=== PATIENT | male | born 1940 | race Caucasian/White ===

== ENCOUNTER 2016-07-27 14:37 | Inpatient (IN) | payer MEDICARE, OTHER ==
[2016-07-27] VITALS (9 sets, daily range): BP systolic 86–111; BP diastolic 52–71; PULSE 64–87; RESP 14–16; TEMP 96.4
[~2016-07-27] VITALS: Ht 157.5 cm; Wt 80.2 kg
[~2016-07-27 14:37] MED LIST: ALBU8.5H3 INH; ASPI81TA3 PO; ATOR20TA38 PO; COU5 PO; DIGO125T PO; DOCU-144 PO; FURO-109 PO; IPRA4AER IH; LEVO500T72 PO; METO25TA7 PO; MTF1000T PO; NATE120T12 PO; PANT40TA4 PO; TAMS-14 PO; TIOT18CA IH; UDROBAC PO
[2016-07-27] MEDS ORDERED: ASPIRIN 300 MG SUPP PR STA (14:45)
[2016-07-27] MEDS ORDERED: PROPOFOL 100 ML ONE (14:50)
[2016-07-27] MEDS ORDERED: FURO40SO PO (15:00)
[2016-07-27] MEDS ORDERED: METO25TA4 PO (15:01)
[2016-07-27 15:02] LABS: BASOPHIL # 0.1 10^3/ul (0.0-0.1); BASOPHILS % 0.5 % (0.0-2.0); EOSINOPHILS # 0.4 10^3/ul (0.0-0.5); EOSINOPHILS % 3.9 % (0.0-7.0); HEMATOCRIT 36.9 % (42.0-52.0); HEMOGLOBIN 12.3 g/dl (14.0-18.0); LYMPHOCYTES # 2.7 10^3/ul (0.8-2.9); LYMPHOCYTES % 23.6 % (15.0-51.0); MEAN CORPUSCULAR HEMOGLOBIN 31.3 pg (29.0-33.0); MEAN CORPUSCULAR HGB CONC 33.3 g/dl (32.0-37.0); MEAN CORPUSCULAR VOLUME 93.9 fl (82.0-101.0); MONOCYTE # 0.7 10^3/ul (0.3-0.9); MONOCYTES % 5.9 % (0.0-11.0); NEUTROPHIL # 7.5 10^3/ul (1.6-7.5); NEUTROPHILS % 66.1 % (39.0-77.0); PLATELET COUNT 188 10^3/UL (140-440); RED BLOOD COUNT 3.93 10^6/ul (4.70-6.10); RED CELL DISTRIBUTION WIDTH 15.7 % (11.5-14.5); UNCORRECTED WBC 11.3 10^3/ul (4.8-10.8); WHITE BLOOD COUNT 11.3 10^3/ul (4.8-10.8)
[2016-07-27] MEDS ORDERED: GABA100C14 PO (15:03)
[2016-07-27] MEDS ORDERED: WARF10TA PO (15:03)
[2016-07-27] MEDS ORDERED: SERT100T PO (15:03)
[2016-07-27] MEDS ORDERED: WARF7.5T PO (15:03)
[2016-07-27] MEDS ORDERED: POTA20TA96 PO (15:04)
[2016-07-27] MEDS ORDERED: [UNRECOGNIZED DRUG - CODE] PO (15:04)
[2016-07-27 15:08] LABS: CONDITION 1; INR 2.15; LH ANALYZER COMMENTS 1; PROTIME 24.2 Sec (12.2-14.2); PT RATIO 1.9
[2016-07-27 15:09] LABS: PARTIAL THROMBOPLASTIN TIME 36.1 Sec (25.0-35.0)
--- NOTE | 2016-07-27 15:15 | ERA ---
ER Documentation Chief Complaint Date/Time DATE: 07/27/16 TIME: 15:08 Chief Complaint cardiac arrest HPI 75-year-old male brought in by ambulance after a respiratory arrest at home. Per them, he was on a breathing treatment when they arise. Per family he has had respiratory distress and flulike symptoms for several days. They called ambulance for respiratory distress, however by the time EMS arrived, he was in PEA arrest. 6 minutes of CPR was done and the patient was intubated in the field and one dose of epi was given via ET tube. There was return of spontaneous circulation. Medical history is unknown. ROS Review of systems unavailable as the patient is unresponsive Medications Home Meds Active Scripts Digoxin* (Digoxin*) 0.125 Mg Tab, 0.125 MG PO DAILY@13, #30 TAB Prov:[employer] 03/08/14 Docusate Sodium* (Colace*) 100 Mg Cap, 100 MG PO DAILY, #30 Prov:[employer]JAY [employer] 03/08/14 Reported Medications Potassium Chloride* (Potassium Chloride*) 20 Meq Tablet.er, 20 MEQ PO BID, TAB.SA 07/27/16 Multivitamin (One Daily) 1 Each Tablet, 1 EACH PO DAILY, TAB 07/27/16 Gabapentin* (Gabapentin*) 100 Mg Capsule, 200 MG PO TID, #180 CAP 07/27/16 Sertraline Hcl* (Zoloft*) 100 Mg Tablet, 100 MG PO DAILY, #30 TAB 07/27/16 Warfarin Sodium* (Coumadin*) 10 Mg Tablet, 10 MG PO THREE DAYS A WEEK, TAB 07/27/16 Warfarin Sodium* (Coumadin*) 7.5 Mg Tablet, 7.5 MG PO FOUR DAYS A WEEK, TAB 07/27/16 Metoprolol Tartrate* (Lopressor*) 25 Mg Tablet, 25 MG PO BID, #60 TAB 07/27/16 Furosemide* (Furosemide*) 40 Mg/5 Ml Solution, 40 MG PO BID, #300 ML 07/27/16 Albuterol Sulfate* (Proair HFA*) 8.5 Gm Hfa.aer.ad, 2 PUFF INH Q4, INH 03/05/14 Pantoprazole (Protonix) 40 Mg Tabec, 40 MG PO DAILY, TAB 03/05/14 Albuterol/Ipratropium* (Combivent Respimat*) 20-100 Mcg/Inh - 4 Gm Aer.w.adap, 1 PUFF IH QID Y for WHEEZING AND SOB, INH 03/05/14 Atorvastatin Calcium* (Atorvastatin Calcium*) 20 Mg Tablet, 20 MG PO HS, TAB 03/05/14 Aspirin (Aspirin) 81 Mg Chew, 81 MG PO DAILY, TAB.CHEW 03/05/14 Discontinued Reported Medications Metoprolol Succinate* (Toprol XL*) 25 Mg Tab.sr.24h, 25 MG PO DAILY, TAB 03/05/14 Warfarin Sod (Coumadin) 5 Mg Tablet, 5 MG PO DAILY, TAB 03/05/14 Tiotropium [place]* (Spiriva*) 18 Mcg Cap.w.dev, 1 INH IH DAILY, EA 03/05/14 Guaifenesin-Codeine Phosphate* (Robitussin* AC) 5 Ml Syrup, 5 ML PO Q4H Y for COUGH, ML 03/05/14 Metformin* (Glucophage*) 1,000 Mg Tablet, 1000 MG PO BID WITH MEALS, TAB 03/05/14 Tamsulosin Hcl* (Flomax*) 0.4 Mg Cap.er.24h, 0.4 MG PO DAILY, CAP 03/05/14 Discontinued Scripts Nateglinide* (Starlix*) 120 Mg Tablet, 120 MG PO AC MEALS, #90 TAB Prov:[employer] 03/08/14 Levofloxacin* (Levaquin*) 500 Mg Tablet, 500 MG PO DAILY, #5 TAB Prov:S[employer]JAY [employer] 03/08/14 Guaifenesin-Codeine Phosphate* (Robitussin* AC) 5 Ml Syrup, 5 ML PO Q4H Y for COUGH, #1 BOT Prov:[employer] 03/08/14 Furosemide* (Lasix*) 40 Mg Tab, 40 MG PO DAILY, #30 Prov:[employer]JAY [employer] 03/08/14 Allergies Allergies: Coded Allergies: Unknown: Unable to obtain (Unverified , 03/05/14) PMhx/Soc Medical and Surgical Hx: Unable to obtain History of Surgery: Yes (S/P Mitral valve replacement on December 2013) Anesthesia Reaction: No Hx 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 Disorder: No Hx Respiratory Disorders: Yes (Pneumonia) Hx Cardiac Disorders: Yes (Afib,CHF,s/p Mitral Valve replacement) Hx Psychiatric Problems: Yes Hx Miscellaneous Medical Probl: Yes (Hyperlipidimia) Hx Alcohol Use: No Hx Substance Use: No Hx Tobacco Use: Yes FmHx Unable to obtain Physical Exam Vitals Vital Signs Date Time Temp Pulse Resp B/P Pulse Ox O2 Delivery O2 Flow Rate FiO2 07/27/16 18:00 75 14 104/62 100 Mechanical Ventilator 07/27/16 17:51 84 14 100 100 07/27/16 17:30 72 14 105/65 100 Mechanical Ventilator 07/27/16 17:00 72 14 110/65 100 Mechanical Ventilator 07/27/16 16:00 86 14 77/62 100 Mechanical Ventilator 07/27/16 15:00 130 19 101/86 100 Mechanical Ventilator 07/27/16 14:46 131 26 155/87 100 Physical Exam Const: Intubated, unresponsive, diaphoretic Head: Atraumatic Eyes: Normal Conjunctiva, pupils equal and reactive to light ENT: Normal External Ears, Nose and Mouth. Neck: No JVD Resp: Prolonged expirations, diminished breath sounds bilaterally, left worse than right, no rales or rhonchi Cardio: Sternotomy scar, well-healed tachycardic with irregular rhythm, no murmurs Abd: Soft, non tender, non distended. Well-healed right upper quadrant surgical scar. normal bowel sounds Skin: No petechiae or rashes Back: No bruising or evidence of trauma Ext: No cyanosis, or edema Neur: Unresponsive Result Diagram: 07/27/16 1440 07/27/16 1440 Results 24 hrs Laboratory Tests Test 07/27/16 14:40 07/27/16 14:45 07/27/16 15:23 Activated Partial Thromboplast Time 36.1Sec Alanine Aminotransferase (ALT/SGPT) 48IU/L Albumin 4.1g/dl Albumin/Globulin Ratio 1.24 Alkaline Phosphatase 115IU/L Anion Gap 29 Aspartate Amino Transf (AST/SGOT) 78IU/L Basophils # 0.110^3/ul Basophils % 0.5% Blood Morphology Comment Blood Urea Nitrogen 18mg/dl Calcium Level 9.8mg/dl Carbon Dioxide Level 24mmol/L Chloride Level 95mmol/L Creatinine 1.34mg/dl Direct Bilirubin 0.00mg/dl Eosinophils # 0.410^3/ul Eosinophils % 3.9% Globulin 3.30g/dl Glucose Level 447mg/dl Hematocrit 36.9% Hemoglobin 12.3g/dl INR International Normalized Ratio 2.15 Indirect Bilirubin 0.3mg/dl Lactic Acid Level 10.9mmol/L Lymphocytes # 2.710^3/ul Lymphocytes % 23.6% Mean Corpuscular Hemoglobin 31.3pg Mean Corpuscular Hemoglobin Concent 33.3g/dl Mean Corpuscular Volume 93.9fl Mean Platelet Volume 9.0fl Monocytes # 0.710^3/ul Monocytes % 5.9% Neutrophils # 7.510^3/ul Neutrophils % 66.1% Nucleated Red Blood Cells # 0.010^3/ul Nucleated Red Blood Cells % 0.0/100WBC Platelet Count 13900^3/UL Potassium Level 4.5mmol/L Prothrombin Time 24.2Sec Prothrombin Time Ratio 1.9 Red Blood Count 3.9310^6/ul Red Cell Distribution Width 15.7% Sodium Level 143mmol/L Total Bilirubin 0.3mg/dl Total Protein 7.4g/dl Troponin I 0.032ng/ml White Blood Count 11.310^3/ul Arterial Blood HCO3 24.0mmol/L Arterial Blood Base Excess -2.1mmol/L Arterial Blood Oxygen Saturation 99.1mmHG Vicente Test ACCEPTAB Arterial Blood Gas Puncture Site Right Radial Arterial Blood Carboxyhemoglobin 0.3% Arterial Blood Date Drawn 07/27/2016 4:20:50 PM Arterial Blood Methemoglobin 0.2% Arterial Blood pCO2 (Temp correct) 47.5mmhg Arterial Blood pH (Temp corrected) 7.322 Arterial Blood pO2 (Temp corrected) 496.2mmHG Blood Gas A-a O2 Differential 169.3mmHg Blood Gas Actual Respiration Rate 14 Blood Gas Low PEEP Setting 5.0cmH2O Blood Gas Modality VENT - AC Blood Gas Notified Time 07/27/2016 4:29:38 PM Blood Gas Notified Whom M.D. Blood Gas Respiration Rate 14.0 Blood Gas Specimen Source Blood arterial Blood Gas Temperature 37.0C Blood Gas Tidal Volume 550.0mL FiO2 100.0% Oxyhemoglobin Percent 98.6% Total Hemoglobin 10.1g/dl Urine Bilirubin NEGATIVE Urine Clarity CLEAR Urine Color LT. YELLOW Urine Glucose 0.5%% Urine Granular Casts FEW Urine Hemoglobin 1+ Urine Ketones NEGATIVE Urine Leukocyte Esterase NEGATIVE Urine Microscopic RBC 5-10/HPF Urine Microscopic WBC 0-2/HPF Urine Nitrite NEGATIVE Urine Specific [place] 1.020 Urine Total Protein 4+ Urine Urobilinogen 1.0 E.U./dL Urine pH 7.0 Current Medications Medications (Trade) Dose Ordered Sig/Jhoana Route PRN Reason Start Time Stop Time Status Last Admin Dose Admin Aspirin 300 mg 300 mg ONCE STAT [place] 07/27/16 14:45 07/27/16 14:48 DC 07/27/16 15:07 Propofol (Diprivan) 100 ml @ ud STK-MED ONCE .ROUTE 07/27/16 14:50 07/27/16 14:51 DC Midazolam HCl 2 mg 2 mg ONCE ONCE IV 07/27/16 15:30 07/27/16 15:31 DC 07/27/16 15:34 Midazolam HCl 50 ml @ 1 mls/hr TITRATE IV 07/27/16 15:30 07/27/16 15:35 Fentanyl (Sublimaze) 100 ml @ 2.5 mls/hr TITRATE IV 07/27/16 16:00 07/27/16 16:37 Sodium Chloride (NS) 2,680 ml BOLUS OVER 2 HOURS STAT IV* 07/27/16 15:41 07/27/16 15:42 DC 07/27/16 15:41 Albuterol (Proventil 0.5% (Neb)) 10 mg ONCE STAT INH 07/27/16 16:20 07/27/16 16:21 DC 07/27/16 16:52 Methylprednisolone Sodium Succinate (Solu-Medrol) 125 mg ONCE ONCE IV 07/27/16 16:30 07/27/16 16:31 DC Azithromycin 500 mg 500 mg ONCE STAT PO 07/27/16 16:21 07/27/16 18:19 DC Ceftriaxone Sodium 50 ml @ 100 mls/hr ONCE STAT IVPB 07/27/16 16:21 07/27/16 16:50 DC Piperacillin Sod/ Tazobactam Sod (Zosyn 3.375gm/ 100 ml (Pmx)) 100 ml @ 200 mls/hr ONCE ONCE IVPB 07/27/16 17:30 07/27/16 17:59 UNV Albuterol/ Ipratropium 3 ml 3 ml Q6 HHN 07/27/16 18:00 UNV Propofol (Diprivan) 100 ml @ 2.591 mls/ hr PER PROTOCOL IV 07/27/16 17:30 UNV Lorazepam (Ativan) 2 mg Q2H PRN IV RASS GOAL -2 TO -3 07/27/16 17:30 UNV Morphine Sulfate 2 mg 2 mg Q2 PRN IV PAIN LEVEL 4-7 07/27/16 17:30 UNV Sodium Chloride (1/2 NS) 1,000 ml @ 100 mls/hr Q10H IV 07/27/16 17:13 UNV Ondansetron HCl (Zofran Inj) 4 mg Q6H PRN IV NAUSEA AND/OR VOMITING 07/27/16 17:30 UNV Albuterol (Proventil 0.5% (Neb)) 2.5 mg Q2H RESP THERAPY PRN NEB SHORTNESS OF BREATH 07/27/16 17:30 UNV Ipratropium [place] (Atrovent 0.02% (Neb)) 0.5 mg Q2H RESP THERAPY PRN NEB SHORTNESS OF BREATH 07/27/16 17:30 UNV Nitroglycerin (Nitroglycerin (Sl Tab) 0.4 Mg) 1 tab Q5M PRN SL CHEST PAIN 07/27/16 17:30 UNV Acetaminophen (Tylenol Liquid) 650 mg Q6H PRN PO PAIN LEVEL 1-3 OR FEVER 07/27/16 17:30 UNV Acetaminophen (Tylenol Tab) 650 mg Q6H PRN PO PAIN LEVEL 1-3 OR FEVER 07/27/16 17:30 UNV Lorazepam (Ativan) 1 mg Q2H PRN IV ANXIETY 07/27/16 17:30 UNV Docusate Sodium (Colace) 100 mg Q12H PRN PO CONSTIPATION 07/27/16 17:30 UNV Bisacodyl (Dulcolax Supp) 10 mg DAILY PRN [place] CONSTIPATION 07/27/16 17:30 UNV Pantoprazole 40 mg 40 mg DAILY@06 IV 07/28/16 06:00 UNV Sodium Chloride 1,000 ml @ 1,000 mls/hr Q1H IV 07/27/16 17:13 07/27/16 19:12 UNV Dobutamine HCl/ Dextrose 250 ml @ 12.954 mls/ hr TITRATE IV 07/27/16 17:30 UNV Cefepime HCl (Maxipime 2gm/50 ml (Pmx)) 50 ml @ 100 mls/hr Q8 IVPB 07/27/16 22:00 UNV Vancomycin HCl (Vanco Iv Per Pharmacy) 1 ea Per Rx Protocol XX 07/27/16 17:30 UNV Insulin Aspart (Novolog Insulin Pen) NOVOLOG *MILD* ALGORI... Q4 SC 07/27/16 21:00 UNV Miscellaneous Information (* Miscellaneous Pharmacy Order) HYPOGLYCEMIA PROTOCOL w... ONCE ONCE XX 07/27/16 17:30 07/27/16 17:35 DC Miscellaneous Information (* Miscellaneous Pharmacy Order) Discontinue Glyburide, Glipizide,... ONCE ONCE XX 07/27/16 17:30 07/27/16 17:31 UNV Miscellaneous Information (* Miscellaneous Pharmacy Order) Discontinue all previ... ONCE ONCE XX 07/27/16 17:30 07/27/16 17:31 UNV Aspirin (Aspirin) 81 mg DAILY PO 07/28/16 09:00 UNV Atorvastatin Calcium (Lipitor) 20 mg HS PO 07/27/16 21:00 UNV Digoxin (Digoxin) 0.125 mg DAILY@13 PO 07/28/16 13:00 UNV Sertraline HCl (Zoloft) 100 mg DAILY PO 07/28/16 09:00 UNV Miscellaneous Information (* Miscellaneous Pharmacy Order) DC previous hepa... ONCE ONCE XX 07/27/16 17:30 07/27/16 17:31 UNV Heparin Sodium (Porcine) (Heparin (1000 Units/ml)) 4,000 unit ONCE ONCE IV 07/27/16 17:30 07/27/16 17:31 UNV Heparin Sodium (Porcine) 4000 unit 4,000 unit PER PROTOCOL PRN IV aPTT<47 07/27/16 17:30 UNV Heparin Sodium (Porcine) (Heparin 11709 Units/250 ml) 250 ml @ 0 mls/hr PER PROTOCOL IV 07/27/16 17:30 UNV Miscellaneous Information 1 ea NOTE XX 07/27/16 18:00 Glucose (Glutose) 15 gm Q15M PRN PO DECREASED GLUCOSE 07/27/16 18:00 Glucose (Glutose) 22.5 gm Q15M PRN PO DECREASED GLUCOSE 07/27/16 18:00 Dextrose (D50w Syringe) 25 ml Q15M PRN IV DECREASED GLUCOSE 07/27/16 18:00 Dextrose (D50w Syringe) 50 ml Q15M PRN IV DECREASED GLUCOSE 07/27/16 18:00 Glucagon (Glucagen) 1 mg Q15M PRN IM DECREASED GLUCOSE 07/27/16 18:00 Glucose (Glutose) 15 gm Q15M PRN BUCCAL DECREASED GLUCOSE 07/27/16 18:00 Metoprolol Tartrate (Lopressor) 25 mg BID PO 07/27/16 21:00 UNV Miscellaneous Information 1 puff QID PRN IH WHEEZING AND SOB 07/27/16 18:00 UNV Miscellaneous Information 1 each DAILY PO 07/28/16 09:00 UNV Procedures/MDM EKG: Rate/Rhythm: Atrial fibrillation at 127 bpm QRS, ST, T-waves: ST depressions in II, III, aVF and V2-V5 Impression: Possible ischemia, no arrhythmia, no STEMI The patient is presenting after cardiac arrest with return of spontaneous circulation. His presenting vital signs were notable for tachycardia and hypertension. He was intubated in the field. His ET tube was retracted as it was too deep. I suspect the patient's arrest was likely respiratory secondary to bronchospasm. Albuterol was started. His EKG showed evidence of diffuse ischemia, with no evidence of acute AR, likely secondary to cardiac hypoperfusion during the arrest. His labs were notable for hyperglycemia without evidence of keto acidosis. He also has lactic acidosis, likely secondary to tissue hypoperfusion during his arrest. I have a lower suspicion for septic shock or pulmonary embolism. He was evaluated by the chemistry account manager on-call, Dr. Piedra, who has a suspicion for possible aspiration pneumonia. The patient was started on IV antibiotics, cultures were drawn, and 30 cc/kg IV fluids were started. The patient was started on propofol for sedation with subsequent hypotension. The propofol was stopped and he was started on Versed and fentanyl with improvement of his blood pressure. The patient did wake up and started moving all of his extremities. He is at risk however for anoxic brain injury. CT scan of the head was normal. There is no evidence currently of acute CHF or pneumonia on his chest x-ray. The patient will be admitted to the ICU for further workup and management. Further workup will be deferred to the inpatient team Critical Care Time: 35 minutes Treatments/Evaluations: Close monitoring and treatment of unstable vital signs, cardiorespiratory, and neurologic status, while maintaining tight balance of fluid, respiratory, and cardiac interventions. This time includes discussing the case with the patient and the patients family. This time does not include all procedures stated elsewhere in this record. This time also includes reviewing old records, labs and radiological studies. This time includes examining and re-examining the patient. Additionally, this time also includes arranging care with admitting and consulting physicians. Accepting Care Team: Current data and ongoing care discussed. Time: Time of admission Primary Provider: Donny Consulting: Dorothea Outstanding Data: cultures Departure Diagnosis: Primary Impression: Cardiopulmonary arrest with successful resuscitation Additional Impressions: Atrial fibrillation with RVR Lactic acidosis Acute respiratory failure Qualified Code: J96.00 - Acute respiratory failure, unspecified whether with hypoxia or hypercapnia Hyperglycemia Condition: Critical KENNETH RAVI MD Jul 27, 2016 15:15
[2016-07-27 15:19] LABS: ALBUMIN 4.1 g/dl (3.3-4.9)
[2016-07-27 15:20] LABS: POTASSIUM 4.5 mmol/L (3.5-5.1)
[2016-07-27 15:22] LABS: ALBUMIN/GLOBULIN RATIO 1.24; BILIRUBIN,INDIRECT 0.3 mg/dl (0-1.1); BILIRUBIN,TOTAL 0.3 mg/dl (0.2-1.3); CREATININE 1.34 mg/dl (0.61-1.24); TOTAL PROTEIN 7.4 g/dl (6.1-8.1)
[2016-07-27 15:23] LABS: CALCIUM 9.8 mg/dl (8.4-10.2)
[2016-07-27] MEDS ORDERED: MIDAZOLAM 1 MG/ML 2 ML INJ IV ONE (15:30)
[2016-07-27 15:34] LABS: TROPONIN-I 0.032 ng/ml (0.00-0.12)
[2016-07-27] MEDS: MIDAZOLAM (DRIP) 50 mg/50 mL 50 ML IV SCH ×2 (15:35→23:52)
[2016-07-27 15:39] LABS: ADD UMIC YES; URINE BILIRUBIN (Dip) NEGATIVE (NEGATIVE); URINE BLOOD (Dip) 1+ (NEGATIVE); URINE COLOR LT. YELLOW (YELLOW); URINE KETONES (Dip) NEGATIVE (NEGATIVE); URINE LEUKOCYTE ESTERASE (Dip) NEGATIVE (NEGATIVE); URINE NITRITE (Dip) NEGATIVE (NEGATIVE); URINE TOTAL PROTEIN (Dip) 4+ (NEGATIVE); URINE UROBILINOGEN (Dip) 1.0 E.U./dL (0.1-1.0)
[2016-07-27] MEDS ORDERED: SODIUM CHLORIDE 0.9% 1L BAG IV* STA (15:41)
--- NOTE | 2016-07-27 15:48 | RADRPT ---
PROCEDURE: XR Chest. CLINICAL INDICATION: Post intubation, arrest. TECHNIQUE: Single frontal chest x-ray. COMPARISON: Chest radiograph 03/04/2014. FINDINGS: Endotracheal tube tip terminates 2 cm above the iván. The cardiac silhouette remains enlarged. Aortic atherosclerotic vascular calcifications are identif ied. Mild bibasilar atelectasis is noted. No pneumothorax, pleural effusion or consolidation is seen. There are post cardiac surgery changes with sternotomy wires, mitral valve prosthesis and mediastina l clips. IMPRESSION: 1. Endotracheal tube tip terminates 2 cm above the iván. 2. Persistent cardiomegaly and aortic atherosclerosis. 3. Mild bibasilar atelectasis. 4. Prior median sternotomy and mitral valve replacement. RPTAT: QQ .Cheko Burgos MD, Date Time Electronically viewed and signed by .Cheko Burgos MD, on 07/27/2016 15:48 .N/
--- NOTE | 2016-07-27 15:51 | RADRPT ---
PROCEDURE: XR Chest. CLINICAL INDICATION: Endotracheal tube adjustment. TECHNIQUE: Single frontal chest x-ray. COMPARISON: Chest radiograph 07/27/2016 at 02:51 p.m.. FINDINGS: Interval repositioning of the endotracheal tube with the tip terminates 3 cm above the iván. The cardiac silhouette remains enlarged. Aortic atherosclerotic vascular calcifications are identified. Mild bibasilar atelectasis is noted. No pneumothorax, pleural effusion or consolidation is seen. There are post cardiac surgery changes with sternotomy wires, mitral valve prosthesis and mediastina l clips. IMPRESSION: 1. Interval repositioning of the endotracheal tube with the tip terminates 3 cm above the iván. 2. Persistent cardiomegaly and aortic atherosclerosis. 3. Mild bibasilar atelectasis. 4. Prior median sternotomy and mitral valve replacement. RPTAT: QQ .Cheko Burgos MD, Date Time Electronically viewed and signed by .Cheko Burgos MD, on 07/27/2016 15:51 .N/
[2016-07-27] MEDS ORDERED: FENTAnyl (DRIP) 1000 mcg/100mL 100 ML IV SCH (16:00)
[2016-07-27] MEDS ORDERED: ALBUTEROL 0.5% (NEB) 2.5 MG/0.5 ML AMP INH STA (16:20)
[2016-07-27] MEDS ORDERED: CEFTRIAXONE 1 GM/50 ML (PMX) 50 ML IVPB STA (16:21)
[2016-07-27] MEDS ORDERED: AZITHROMYCIN 250 MG TAB PO STA (16:21)
[2016-07-27 16:29] LABS: AADO2 Arterial 169.3 mmHg (7.0-24.0); Allen Test ACCEPTAB; Arterial Base Excess -2.1 mmol/L (-3.0-3); Arterial COHb 0.3 % (0.0-3.0); Arterial Fraction of Oxyhgb 98.6 % (93.0-99.0); Arterial MetHb 0.2 % (0.0-1.5); Arterial Total Hemglobin 10.1 g/dl (12.0-18.0); MODE VENT - AC
[2016-07-27] MEDS ORDERED: METHYLPREDNISOLONE 125 MG INJ IV ONE (16:30)
--- NOTE | 2016-07-27 16:38 | RADRPT ---
PROCEDURE: CT Head without contrast. CLINICAL INDICATION: Sepsis TECHNIQUE: The study was performed utilizing a GE 64-slice multidetector CT scanner. Direct spiral axial CT images of the brain were obtained from the vertex to the skull base without contrast. The CTDI vol is 45.01 mGy and the DLP is 720.23 mGy-cm. The images were reviewed on a PACS workstation. COMPARISON: No prior studies are available for comparison. FINDINGS: Mild to moderate diffuse atrophy is seen with a compensatory ventricular enlargement. Mild white ma tter disease in the periventricular and deep white matter is seen. The fried-white matter differenti ation is maintained. No intra or extra-axial fluid collection or mass effect or shift in the midlin e structures is seen. The visualized paranasal sinuses, mastoid air cells, orbits, and calvarium ar e unremarkable. Vascular calcifications are seen. IMPRESSION: 1. No acute intracranial pathology. 2. Mild to moderate diffuse volume loss and mild chronic microvascular ischemic changes. RPTAT: HPNM Physician Vanita Date Time Electronically viewed and signed by Physician Vanita on 07/27/2016 16:37 /
[2016-07-27] MEDS ORDERED: LORAZEPAM 2 MG INJ IV PRN ×2 (17:30)
[2016-07-27] MEDS ORDERED: HYPOGLYCEMIA PROTOCOL when Glucose is <70 mg/dL or symptomatic <90 mg/dL. XX ONE (17:30)
[2016-07-27] MEDS ORDERED: ACETAMINOPHEN 650MG/20.3ML CUP PO PRN (17:30)
[2016-07-27] MEDS ORDERED: ALBUTEROL 0.5% (NEB) 2.5 MG/0.5 ML AMP NEB PRN (17:30)
[2016-07-27] MEDS ORDERED: morphine 2 MG INJ IV PRN (17:30)
[2016-07-27] MEDS ORDERED: BISACODYL 10 MG SUPP PR PRN (17:30)
[2016-07-27] MEDS ORDERED: DOCUSATE SODIUM 100 MG CAP PO PRN (17:30)
[2016-07-27] MEDS ORDERED: VANCOMYCIN IV PER PHARMACY XX SCH (17:30)
[2016-07-27] MEDS ORDERED: NITROGLYCERIN (SL) 0.4 MG TAB SL PRN (17:30)
[2016-07-27] MEDS ORDERED: IPRATROPIUM (NEB) 0.5 MG/2.5 ML AMP NEB PRN (17:30)
[2016-07-27] MEDS ORDERED: ONDANSETRON 4 MG INJ IV PRN (17:30)
[2016-07-27] MEDS ORDERED: ACETAMINOPHEN 325 MG TAB PO PRN (17:30)
--- NOTE | 2016-07-27 17:43 | CONS ---
DATE OF ADMISSION: 07/27/2016 DATE OF CONSULTATION: 07/27/2016 REASON FOR CONSULTATION: Respiratory failure. HISTORY OF PRESENT ILLNESS: This is a 75-year-old gentleman with past medical history of atrial fib rillation, diastolic dysfunction, chronic bronchitis with a bioprosthetic mitral valve replacement i n 2013, aortic valve replacement, also in 2013, on anticoagulation who apparently had flu-like sympt oms for the past few days. Today, was found unresponsive. Upon arrival of EMS, he was in PEA. He had 6 minutes of CPR with return of circulation and now transferred to our hospital for further jose gement. PAST MEDICAL HISTORY: As above includes diabetes, hypertension, hyperlipidemia, aortic and mitral v alve replacements, chronic atrial fibrillation on anticoagulation, history of tobacco use, COPD. MEDICATIONS: Per chart. ALLERGIES: NONE. SOCIAL HISTORY: Positive tobacco use, occasional alcohol, no history of drug use. FAMILY HISTORY: Noncontributory. SYSTEMS REVIEW: A 12-point review of systems was negative other than that mentioned above. PHYSICAL EXAMINATION: GENERAL: Elderly-appearing gentleman, intubated on mechanical ventilation, appears comfortable at r est. VITAL SIGNS: Temperature 98, pulse is 100, blood pressure 100/40, O2 saturation 96% on FIO2 of 100% , orally intubated. HEENT: Moist mucous membranes. Pupils equal and reactive to light. CARDIAC: S1, S2, no added sounds or murmurs. CHEST: Diminished air entry bilaterally. ABDOMEN: Soft, nontender. No guarding or rebound. EXTREMITIES: No cyanosis, clubbing, edema. NEUROLOGIC: Unable to assess at present. LABORATORIES: White count 11.3, hemoglobin 12.3, platelets of 188. BUN 18, creatinine 1.34. Lacti c acid 10.9. Troponin 0.32. INR 2.15. Urinalysis unremarkable. DIAGNOSTIC STUDIES: Chest x-ray was reviewed, shows no significant infiltrates or effusions. Brain CT was performed, shows diffuse microvascular changes. IMPRESSION AND PLAN: 1. Cardiopulmonary arrest. 2. Possible anoxic brain injury. 3. Probable aspiration pneumonia. 4. Underlying history of aortic and mitral valve replacement. The patient will require: 1. Hypothermia protocol. 2. Broad-spectrum antibiotics. 3. Vent support. 4. DVT and GI prophylaxis. Dictated By: NASH MCKEON/SUDHAKAR Conf#: [id number] [facility]#: [id number]
[2016-07-27] MEDS ORDERED: GLUCAGON 1 MG INJ IM PRN (18:00)
[2016-07-27] MEDS ORDERED: GLUCOSE GEL 15 GRAM TUBE BUCCAL PRN (18:00)
[2016-07-27] MEDS ORDERED: DEXTROSE 50% 50 ML SYRINGE IV PRN ×2 (18:00)
[2016-07-27] MEDS ORDERED: NON-FORMULARY/PATIENT OWN MED (Albuterol/Ipratropium* (Combivent Respimat*) 1 PUFF) IH PRN (18:00)
[2016-07-27] MEDS ORDERED: GLUCOSE GEL 15 GRAM TUBE PO PRN ×2 (18:00)
--- NOTE | 2016-07-27 18:32 | HP ---
DATE OF ADMISSION: 07/27/2016 CONSULTANTS: 1. Larry Piedra MD 2. Mesfin Ramirez MD 3. Leland Preciado MD REASON FOR ADMISSION: Cardiac arrest. HISTORY OF PRESENT ILLNESS: This is a 75-year-old gentleman with past medical history of COPD, ecze ma, anemia, atrial fibrillation, BPH, benign essential hypertension, chronic kidney disease stage II , diabetes mellitus type 2, diabetic neuropathy, diabetic cardiomyopathy, excision and placement of mitral valve, gait instability, dyslipidemia, history of renal mass, history of rheumatic disease of the heart valve, status post excision and replacement of mitral valve, who was in his normal state of health until this morning and had a sudden collapse and cardiac arrest. EMS was called and after CPR the patient returned spontaneous circulation. EKG was obtained which showed atrial fibrillatio n with RVR with ventricular rate of 127, marked ST abnormality with ST depression in leads II and II I. He was brought into the emergency room of [facility] where he was intubated. His vitals, temperature 131, pulse 26, respiration rate 24, blood pressure 155/87, oxygen saturation 100%, on vent. The patient, at this time, blood pressure was found to be 89/56. Patient is awake, alert, intubated, able to follow commands and is able to move all his extremities on demand. He de nies any chest pain at this time. A great amount of information was obtained from patient's daughte r at the bedside. She stated that the patient has been compliant with all his medication. Denies h aving any chest pain prior to this event. PAST MEDICAL AND SURGICAL HISTORY: As above per HPI. MEDICATIONS: 1. ProAir HFA. 2. Combivent. 3. Aspirin 81 mg. 4. Lipitor 20 mg. 5. Digoxin 0.125 mg. 6. Colace 100 mg. 7. Lasix 40 mg. 8. Gabapentin 100 mg. 9. Metoprolol tartrate 25 mg. 10. Multivitamin 1 tab. 11. Protonix 40 mg. 12. Potassium chloride 20 mEq. 13. Sertraline 100 mg. 14. Warfarin 7.5 four days a week and 10 mg 3 days a week. ALLERGIES: UNABLE TO OBTAIN, BUT ACCORDING TO HIS NOTES FROM HIS DOCTOR, NO KNOWN DRUG ALLERGIES. SOCIAL HISTORY: Former smoker. He used to drink alcohol no illicit drugs. FAMILY HISTORY: Not obtainable at this time secondary to the patient is intubated. REVIEW OF SYSTEMS: Unfortunately, not obtainable except what was stated above in the HPI. PHYSICAL EXAMINATION: VITAL SIGNS: Pulse 131, respirations 26, blood pressure 89/56, saturation 100% on vent. GENERAL APPEARANCE: The patient is intubated, awake, alert, able to follow commands. EYES AND ENT: Conjunctivae and lids are normal. Pupils are normal. Extraocular normal. Hearing g rossly normal. Lips, teeth and gums are normal. Oral mucosa is dry, although he is intubated. NECK: Supple. Trachea is midline. No lymphadenopathy. RESPIRATORY: Effort is normal. Clear to auscultation bilaterally. CARDIOVASCULAR: AFib, uncontrolled rate. Irregular rhythm and rate. Positive murmur at the apex. No gallop. Positive 1 edema bilateral lower extremity. THORAX: Normal expansion of thorax during inspiration. GASTROINTESTINAL: Abdomen is soft, nontender, not distended. Bowel sounds present. No guarding, n o rebound. GENITOURINARY: Deferred. MUSCULOSKELETAL: Upper and lower extremities within normal limits except positive 1 edema bilateral lower extremities. NEUROLOGIC: The patient is awake, alert, able to follow commands. LABORATORY WORK AND IMAGING: WBC 11.3, hemoglobin 12.3, hematocrit 36.9, platelets 188. Sodium 143 , potassium 4.5, chloride 95, bicarbonate 24, BUN 18, creatinine 1.34, glucose 447. Lactic acid 10. 9, calcium 9.8. AST 78, ALT 48. Troponin 0.032. Urinalysis, urine hemoglobin positive 1, glucose 0.5%, total protein 4+, negative for leukocyte esterase, bilirubin and nitrite. ABG: pH 7.322, pCO 2 47.5, pO2 496.2, bicarbonate 24, on vent AC, FIO2 100%, PEEP of 5. PT 24.2, INR 2.15. ASSESSMENT AND PLAN: 1. Cardiac arrest with return of spontaneous circulation. Cardiology, Pulmonology has been consult ed. We will follow serial troponins, obtain 2D echocardiogram and patient will be [facility]. We will place on aspirin, heparin drip. 2. Acute respiratory failure, status post cardiac arrest. At this time, the patient is intubated. We will follow up pulmonology recommendations. Continue breathing treatment. 3. Diabetes mellitus type 2, uncontrolled. Follow hemoglobin A1c. The patient has been placed on insulin sliding scale. Endocrinology has been consulted. 4. Dyslipidemia. Continue Lipitor. 5. Atrial fibrillation. The patient has been placed on heparin drip, although at home he is on Cou madin. the possible upcoming procedure, we will hold Coumadin. At this time we will hold th e patient's metoprolol secondary to hypotension. Continue digoxin. 6. Chronic kidney insufficiency, stage II. Continue to monitor. 7. History of mitral valve replacement on Coumadin as outpatient. At this time, place the patient on heparin and restart Coumadin when patient is able to tolerate p.o. intake. 8. Diabetic cardiomyopathy. Obtain a 2D echocardiogram. Cardiology has been consulted. We will f annabella up his recommendations. 9. Sepsis inflammatory response syndrome. This is likely reactive secondary to cardiac arrest, brittani ludwig will place the patient on prophylactic cefepime. Follow serial lactic acids, intravenous flui ds. We will continue to monitor patient closely. Further recommendations, management and treatment as p er clinical course. Total time spent for evaluation and admission workup, 1 hour. Dictated By: KASSANDRA FRANKEL/NTS Conf#: [id number] DID#: [id number]
[2016-07-27] MEDS ORDERED: PIPER-TAZO 3.375 GM IV (PMX) 100 ML IVPB ONE (18:45)
[2016-07-27] MEDS ORDERED: DOBUTamine/D5W 1 MG/ML DRIP 250 ML IV SCH (18:45)
[2016-07-27] MEDS: AZITHROMYCIN 500MG/NS (PMX) 250 ML IV STA ×2 (18:51→19:26)
[2016-07-27] MEDS ORDERED: HEPARIN 1000 UNITS/ML 10 ML INJ IV PRN (19:00)
[2016-07-27] MEDS ORDERED: HEPARIN 1000 UNITS/ML 10 ML INJ IV ONE (19:00)
[2016-07-27] MEDS ORDERED: HEPARIN 25000 UNITS/250 ML 250 ML IV SCH (19:00)
[2016-07-27] MEDS: SOD CHLORIDE 0.9% 1,000 ML IV SCH ×3 (19:31→23:43)
[2016-07-27] MEDS ORDERED: ALBUTEROL/IPRATROPIUM (NEB) 3 ML AMP HHN SCH (20:00)
[2016-07-27 20:44] LABS: HEMATOCRIT 27.5 % (42.0-52.0); HEMOGLOBIN 9.4 g/dl (14.0-18.0); MEAN CORPUSCULAR HEMOGLOBIN 31.8 pg (29.0-33.0); MEAN CORPUSCULAR HGB CONC 34.2 g/dl (32.0-37.0); MEAN CORPUSCULAR VOLUME 93.1 fl (82.0-101.0); MEAN PLATELET VOLUME 8.6 fl (7.4-10.4); PLATELET COUNT 106 10^3/UL (140-440); RED BLOOD COUNT 2.95 10^6/ul (4.70-6.10); RED CELL DISTRIBUTION WIDTH 15.4 % (11.5-14.5); UNCORRECTED WBC 8.1 10^3/ul (4.8-10.8); WHITE BLOOD COUNT 8.1 10^3/ul (4.8-10.8)
[2016-07-27 20:51] LABS: ALBUMIN 2.9 g/dl (3.3-4.9)
[2016-07-27 20:52] LABS: INR 2.9; POTASSIUM 3.9 mmol/L (3.5-5.1); PROTIME 30.7 Sec (12.2-14.2); PT RATIO 2.4
[2016-07-27 20:54] LABS: BILIRUBIN,INDIRECT 0.1 mg/dl (0-1.1); BILIRUBIN,TOTAL 0.1 mg/dl (0.2-1.3); CREATININE 1.05 mg/dl (0.61-1.24); TOTAL PROTEIN 5.8 g/dl (6.1-8.1)
[2016-07-27 20:55] LABS: CALCIUM 8.1 mg/dl (8.4-10.2)
[2016-07-27] MEDS ORDERED: VANCOMYCIN 1.5 GM in SOD CHLORIDE 0.9% 250 ML IVPB SCH (21:00)
[2016-07-27] MEDS: METOPROLOL 25 MG TAB PO SCH (21:00)
[2016-07-27] MEDS ORDERED: SOD CHLORIDE 0.45% 1,000 ML IV SCH (21:00)
[2016-07-27 21:04] LABS: CONDITION 1; LH ANALYZER COMMENTS 1
[2016-07-27 21:11] LABS: TROPONIN-I 0.841 ng/ml (0.00-0.12)
[2016-07-27 21:12] LABS: CK-MB 4.93 ng/ml (0.0-2.4)
[2016-07-27 21:14] LABS: TROPONIN-I 0.839 ng/ml (0.00-0.12)
[2016-07-27] MEDS: ATORVASTATIN 20 MG TAB PO SCH (21:46)
[2016-07-27 22:13] LABS: PARTIAL THROMBOPLASTIN TIME 166.1 Sec (25.0-35.0)
[2016-07-27] MEDS ORDERED: SOD CHLORIDE 0.9% 500 ML IV ONE (23:00)
[2016-07-27] MEDS ORDERED: SOD CHLORIDE 0.9% 1,000 ML IV SCH (23:00)
[2016-07-27 23:22] LABS: EOSINOPHILS # 0.2 10^3/ul (0.0-0.5); LYMPHOCYTES # 0.1 10^3/ul (0.8-2.9); MONOCYTE # 0.2 10^3/ul (0.3-0.9); NEUTROPHIL # 7.7 10^3/ul (1.6-7.5)
[2016-07-27 23:28] LABS: CK-MB 5.32 ng/ml (0.0-2.4)
[2016-07-27 23:33] LABS: TROPONIN-I 0.961 ng/ml (0.00-0.12)
[2016-07-27] MEDS: CEFEPIME 2GM/50 ML (PMX) 50 ML IVPB SCH (23:40)
[2016-07-27] MEDS: INSULIN ASPART [NOVOLOG] 3 ML PEN SC SCH (23:42)
[2016-07-28] VITALS (79 sets, daily range): BP systolic 73–118; BP diastolic 51–81; PULSE 52–122; RESP 10–20
[2016-07-28] MEDS: INSULIN ASPART [NOVOLOG] 3 ML PEN SC SCH ×6 (01:23→20:54)
[2016-07-28 02:03] LABS: INR 2.38; PROTIME 26.3 Sec (12.2-14.2); PT RATIO 2.1
[2016-07-28 02:04] LABS: PARTIAL THROMBOPLASTIN TIME 38.5 Sec (25.0-35.0)
[2016-07-28 02:22] LABS: CK-MB 6.34 ng/ml (0.0-2.4)
[2016-07-28 02:27] LABS: TROPONIN-I 0.811 ng/ml (0.00-0.12)
[2016-07-28] MEDS: IPRATROPIUM (HFA) 12.9 GM INHALER INH SCH ×4 (02:36→21:28)
[2016-07-28] MEDS: ALBUTEROL HFA 8 GM INHALER INH SCH ×4 (02:37→21:29)
[2016-07-28 06:04] LABS: BASOPHILS % 0.1 % (0.0-2.0); HEMOGLOBIN 9.1 g/dl (14.0-18.0); LYMPHOCYTES # 0.3 10^3/ul (0.8-2.9); LYMPHOCYTES % 3.5 % (15.0-51.0); MEAN CORPUSCULAR HEMOGLOBIN 31.4 pg (29.0-33.0); MEAN CORPUSCULAR HGB CONC 33.7 g/dl (32.0-37.0); MEAN CORPUSCULAR VOLUME 93.3 fl (82.0-101.0); MEAN PLATELET VOLUME 8.9 fl (7.4-10.4); MONOCYTE # 0.3 10^3/ul (0.3-0.9); MONOCYTES % 3.7 % (0.0-11.0); NEUTROPHIL # 8.1 10^3/ul (1.6-7.5); NEUTROPHILS % 92.7 % (39.0-77.0); PLATELET COUNT 107 10^3/UL (140-440); RED BLOOD COUNT 2.89 10^6/ul (4.70-6.10); RED CELL DISTRIBUTION WIDTH 15.9 % (11.5-14.5); UNCORRECTED WBC 8.7 10^3/ul (4.8-10.8); WHITE BLOOD COUNT 8.7 10^3/ul (4.8-10.8)
--- NOTE | 2016-07-28 06:22 | RADRPT ---
PROCEDURE: XR Chest. CLINICAL INDICATION: resp faliure TECHNIQUE: Portable single view of the chest COMPARISON: 07/27/2016 FINDINGS: Endotracheal and nasogastric tubes remain in place. Cardiomegaly and prosthetic valve again seen. Pulmonary vascular congestion and mild interstitial edema is seen, slightly increased compared with prior. No large effusion. IMPRESSION: Probable slight increase in congestive heart failure. RPTAT: HLBE Inna Flowers Physician Date Time Electronically viewed and signed by Inna Flowers, Physician on 07/28/2016 06:22 LE/
[2016-07-28] MEDS: PANTOPRAZOLE 40 MG INJ IV SCH (06:23)
[2016-07-28 06:34] LABS: CONDITION 1; LH ANALYZER COMMENTS 1
[2016-07-28 07:11] LABS: CK-MB 4.84 ng/ml (0.0-2.4)
[2016-07-28 07:15] LABS: TROPONIN-I 0.636 ng/ml (0.00-0.12)
[2016-07-28 07:20] LABS: POTASSIUM 3.9 mmol/L (3.5-5.1)
[2016-07-28 07:22] LABS: CREATININE 0.95 mg/dl (0.61-1.24)
[2016-07-28 07:23] LABS: PHOSPHORUS 2.1 mg/dl (2.5-4.9)
[2016-07-28 07:24] LABS: MAGNESIUM 1.7 mg/dl (1.7-2.5)
[2016-07-28 08:16] LABS: AADO2 Arterial 79.3 mmHg (7.0-24.0); Allen Test ACCEPTAB; Arterial Base Excess -1.7 mmol/L (-3.0-3); Arterial COHb 0.3 % (0.0-3.0); Arterial HCO3 23.3 mmol/L (22.0-26.0); Arterial MetHb 0.1 % (0.0-1.5); Arterial Total Hemglobin 9.4 g/dl (12.0-18.0); MODE VENT - AC
--- NOTE | 2016-07-28 08:24 | CONS ---
Date/Time of Note Date/Time of Note DATE: 07/28/16 TIME: 08:15 Assessment/Plan Assessment/Plan Additional Assessment/Plan Current ventilator settings are AC of 16, tidal volume 550, 40% FiO2, PEEP of 5. Next Assessment and recommendations; next 1. Admitted with cardiac arrest requiring brief CPR with revival of vital signs. I had a very detailed discussion the patient's daughter at bedside according to the patient has been having severe wheezing for the last 2 days with cough chest congestion and patient suddenly collapsed at home. Lillian suggest likely COPD/asthma exacerbation with acute bronchospasm. Next 2. Mild elevation in troponin likely from CPR. 3. History of mitral valve replacement. In 2013. According to the patient's daughter patient also had a coronary angiogram and did not have any coronary intervention performed. 4. History of heavy smoking in the past. Resulting in COPD next 5. Chest x-ray was reviewed from today which is essentially clear. 6. Patient is mildly hypotensive. 7. Diabetes with hyperglycemia. Next Discontinue vancomycin. Continue cefepime and Zithromax only. Add Solu-Medrol 80 mg every 6 hours. Continue DuoNeb every 6 hours. Start tube feeding with Pulmocare. Give the patient is a liter of normal saline fluid bolus. Followed by discontinuation of dobutamine. A cardiology consult is pending as well as 2D echocardiogram results. Continue IV heparin for now. Next I had a detailed discussion the patient's daughter at bedside and answered all her questions and ABG also has been ordered once it is obtained I will reviewed and make further recommendations regarding ventilator settings. Consultation Date/Type/Reason Admit Date/Time Jul 27, 2016 at 17:13 Initial Consult Date Type of Consultation: Pulmonary/critical care 24 HR Interval Summary Free Text/Dictation Patient condition remains critical. Still requiring full ventilator support. Patient is sedated with Versed drip. Has remained hemodynamically stable. Although requiring dobutamine at a small dose for blood pressure. Next General examination; middle aged man, or intubated, sedated currently in no distress. Exam/Review of Systems Vital Signs Vitals Vital Signs Date Time Temp Pulse Resp B/P Pulse Ox O2 Delivery O2 Flow Rate FiO2 07/28/16 06:00 83 16 98/64 100 Mechanical Ventilator 07/28/16 05:10 40 07/28/16 04:00 98.4 Intake and Output 07/27/16 07/27/16 07/28/16 15:00 23:00 07:00 Intake Total 90 ml 894.80 ml Output Total 585 ml 355 ml Balance -495 ml 539.80 ml Exam H EENT examination; supple neck, no JVD. No lymphadenopathy. It was a small bilaterally. No neck masses. No lymphadenopathy. No thyromegaly. Chest examination; diffuse bilateral wheezing. S1-S2 audible. No murmurs. There is a well-healed sternal scar. Regular rhythm. Abdomen examination; soft, no organomegaly. Bowel sounds audible. Extremity examination; no peripheral edema. Pulses 1+ bilaterally. Next RIVET TESTER examination; patient is sedated. Results Result Diagram: 07/28/16 0500 07/28/16 0510 Results 24 hrs Laboratory Tests Test 07/27/16 14:40 07/27/16 14:45 07/27/16 15:23 07/27/16 20:25 Activated Partial Thromboplast Time 36.1 H 166.1 *H Alanine Aminotransferase (ALT/SGPT) 48 91 H Albumin 4.1 2.9 #L Albumin/Globulin Ratio 1.24 1.00 Alkaline Phosphatase 115 122 H Anion Gap 29 H 14 # Aspartate Amino Transf (AST/SGOT) 78 H 142 #H Basophils # 0.1 Basophils % 0.5 Blood Morphology Comment Blood Urea Nitrogen 18 19 Calcium Level 9.8 8.1 L Carbon Dioxide Level 24 28 Chloride Level 95 L 102 Creatinine 1.34 H 1.05 Direct Bilirubin 0.00 0.00 Eosinophils # 0.4 0.2 Eosinophils % 3.9 2.0 Globulin 3.30 H 2.90 Glucose Level 447 *H 307 H Hematocrit 36.9 L 27.5 #L Hemoglobin 12.3 L 9.4 #L INR International Normalized Ratio 2.15 2.90 Indirect Bilirubin 0.3 0.1 Lactic Acid Level 10.9 *H 1.9 Lymphocytes # 2.7 0.1 L Lymphocytes % 23.6 1.0 L Mean Corpuscular Hemoglobin 31.3 31.8 Mean Corpuscular Hemoglobin Concent 33.3 34.2 Mean Corpuscular Volume 93.9 93.1 Mean Platelet Volume 9.0 8.6 Monocytes # 0.7 0.2 L Monocytes % 5.9 2.0 Neutrophils # 7.5 7.7 H Neutrophils % 66.1 95.0 H Nucleated Red Blood Cells # 0.0 Nucleated Red Blood Cells % 0.0 Platelet Count 188 106 #L Potassium Level 4.5 3.9 Prothrombin Time 24.2 H 30.7 #H Prothrombin Time Ratio 1.9 2.4 Red Blood Count 3.93 L 2.95 #L Red Cell Distribution Width 15.7 H 15.4 H Sodium Level 143 140 Total Bilirubin 0.3 0.1 L Total Protein 7.4 5.8 #L Troponin I 0.032 0.839 *H White Blood Count 11.3 H 8.1 # Arterial Blood HCO3 24.0 Arterial Blood Base Excess -2.1 Arterial Blood Oxygen Saturation 99.1 Vicente Test ACCEPTAB Arterial Blood Gas Puncture Site Right Radial Arterial Blood Carboxyhemoglobin 0.3 Arterial Blood Date Drawn 07/27/2016 4:20:50 PM Arterial Blood Methemoglobin 0.2 Arterial Blood pCO2 (Temp correct) 47.5 H Arterial Blood pH (Temp corrected) 7.322 L Arterial Blood pO2 (Temp corrected) 496.2 H Blood Gas A-a O2 Differential 169.3 H Blood Gas Actual Respiration Rate 14 Blood Gas Low PEEP Setting 5.0 Blood Gas Modality VENT - AC Blood Gas Notified Time 07/27/2016 4:29:38 PM Blood Gas Notified Whom M.D. Blood Gas Respiration Rate 14.0 Blood Gas Specimen Source Blood arterial Blood Gas Temperature 37.0 Blood Gas Tidal Volume 550.0 FiO2 100.0 Oxyhemoglobin Percent 98.6 Total Hemoglobin 10.1 L Urine Bilirubin NEGATIVE Urine Clarity CLEAR Urine Color LT. YELLOW Urine Glucose 0.5% H Urine Granular Casts FEW Urine Hemoglobin 1+ H Urine Ketones NEGATIVE Urine Leukocyte Esterase NEGATIVE Urine Microscopic RBC 5-10 Urine Microscopic WBC 0-2 Urine Nitrite NEGATIVE Urine Specific [place] 1.020 Urine Total Protein 4+ H Urine Urobilinogen 1.0 E.U./dL Urine pH 7.0 Creatine Kinase 100 Creatine Kinase Index 4.9 Creatinine Kinase MB (Mass) 4.93 H Differential Comment MANUAL DIFF Lactate Dehydrogenase 827 H Test 07/27/16 21:48 07/27/16 22:57 07/28/16 01:13 07/28/16 01:42 Bedside Glucose 330 H 330 H Creatine Kinase 99 91 Creatine Kinase Index 5.4 7.0 Creatinine Kinase MB (Mass) 5.32 H 6.34 H Lactic Acid Level 1.7 1.3 Troponin I 0.961 *H 0.811 *H Activated Partial Thromboplast Time 38.5 H INR International Normalized Ratio 2.38 Prothrombin Time 26.3 H Prothrombin Time Ratio 2.1 Test 07/28/16 05:00 07/28/16 05:10 07/28/16 06:21 Basophils # 0.0 Basophils % 0.1 Blood Morphology Comment Creatine Kinase 85 Creatine Kinase Index 5.7 Creatinine Kinase MB (Mass) 4.84 H Eosinophils # 0.0 Eosinophils % 0.0 Hematocrit 27.0 L Hemoglobin 9.1 L Lactic Acid Level 1.2 Lymphocytes # 0.3 L Lymphocytes % 3.5 L Mean Corpuscular Hemoglobin 31.4 Mean Corpuscular Hemoglobin Concent 33.7 Mean Corpuscular Volume 93.3 Mean Platelet Volume 8.9 Monocytes # 0.3 Monocytes % 3.7 Neutrophils # 8.1 H Neutrophils % 92.7 H Nucleated Red Blood Cells # 0.0 Nucleated Red Blood Cells % 0.0 Platelet Count 107 L Red Blood Count 2.89 L Red Cell Distribution Width 15.9 H Troponin I 0.636 *H White Blood Count 8.7 Anion Gap 14 Blood Urea Nitrogen 17 Calcium Level 8.0 L Carbon Dioxide Level 24 Chloride Level 105 Creatinine 0.95 Glucose Level 288 H Magnesium Level 1.7 Phosphorus Level 2.1 L Potassium Level 3.9 Sodium Level 139 Bedside Glucose 272 H Medications Medications Current Medications Midazolam HCl 50 ml @ 1 mls/hr TITRATE IV Last administered on 07/27/16 23:52; Admin Dose 4 MLS/HR; Start 07/27/16 at 15:30 Fentanyl (Sublimaze) 100 ml @ 2.5 mls/hr TITRATE IV Last administered on 16:37; Admin Dose 2.5 MLS/HR; Start 07/27/16 at 16:00 Lorazepam (Ativan) 2 mg Q2H PRN IV RASS GOAL -2 TO -3; Start 07/27/16 at 17:30 Morphine Sulfate (morphine) 2 mg Q2H PRN IV PAIN LEVEL 4-7; Start 07/27/16 at 17 :30 Ondansetron HCl (Zofran Inj) 4 mg Q6H PRN IV NAUSEA AND/OR VOMITING; Start 07/27 at 17:30 Nitroglycerin (Nitroglycerin (Sl Tab) 0.4 Mg) 1 tab Q5M PRN SL CHEST PAIN; Start 07/27/16 at 17:30 Acetaminophen (Tylenol Liquid) 650 mg Q6H PRN PO PAIN LEVEL 1-3 OR FEVER; Start 07/27/16 at 17:30 Acetaminophen (Tylenol Tab) 650 mg Q6H PRN PO PAIN LEVEL 1-3 OR FEVER; Start at 17:30 Lorazepam (Ativan) 1 mg Q2H PRN IV ANXIETY; Start 07/27/16 at 17:30 Docusate Sodium (Colace) 100 mg Q12H PRN PO CONSTIPATION; Start 07/27/16 at 17: 30 Bisacodyl (Dulcolax Supp) 10 mg DAILY PRN [place] CONSTIPATION; Start 07/27/16 at 17: 30 Pantoprazole 40 mg 40 mg DAILY@06 IV Last administered on 07/28/16 06:23; Admin Dose 40 MG; Start 07/28/16 at 06:00 Dobutamine HCl/ Dextrose 250 ml @ 12.954 mls/ hr TITRATE IV Last administered on 07/28/16 01:10; Admin Dose 12.954 MLS/HR; Start 07/27/16 at 18:45 Cefepime HCl (Maxipime 2gm/50 ml (Pmx)) 50 ml @ 100 mls/hr Q24H IVPB Last administered on 07/27/16 23:40; Admin Dose 100 MLS/HR; Start 07/27/16 at 22:00 Insulin Aspart (Novolog Insulin Pen) NOVOLOG *MILD* ALGORI... Q4 SC Last administered on 07/28/16 06:26; Admin Dose 4 UNIT; Start 07/27/16 at 21:00 Aspirin (Aspirin) 81 mg DAILY PO ; Start 07/28/16 at 09:00 Atorvastatin Calcium (Lipitor) 20 mg HS PO Last administered on 07/27/16 21:46 ; Admin Dose 20 MG; Start 07/27/16 at 21:00 Digoxin (Digoxin) 0.125 mg DAILY@13 PO ; Start 07/28/16 at 13:00 Sertraline HCl (Zoloft) 100 mg DAILY PO ; Start 07/28/16 at 09:00 Miscellaneous Information 1 ea NOTE XX ; Start 07/27/16 at 18:00 Glucose (Glutose) 15 gm Q15M PRN PO DECREASED GLUCOSE; Start 07/27/16 at 18:00 Glucose (Glutose) 22.5 gm Q15M PRN PO DECREASED GLUCOSE; Start 07/27/16 at 18:00 Dextrose (D50w Syringe) 25 ml Q15M PRN IV DECREASED GLUCOSE; Start 07/27/16 at 18:00 Dextrose (D50w Syringe) 50 ml Q15M PRN IV DECREASED GLUCOSE; Start 07/27/16 at 18:00 Glucagon (Glucagen) 1 mg Q15M PRN IM DECREASED GLUCOSE; Start 07/27/16 at 18:00 Glucose (Glutose) 15 gm Q15M PRN BUCCAL DECREASED GLUCOSE; Start 07/27/16 at 18: 00 Metoprolol Tartrate (Lopressor) 25 mg BID PO ; Start 07/27/16 at 21:00 Multivitamins Therapeutic 1 tab 1 tab DAILY PO ; Start 07/28/16 at 09:00 Vancomycin HCl 1.5 gm/Sodium Chloride 250 ml @ 83.333 mls/ hr Q24H IVPB ; Start 07/28/16 at 21:00 Sodium Chloride (NS) 1,000 ml @ 100 mls/hr Q10H IV Last administered on t 23:43; Admin Dose 100 MLS/HR; Start 07/28/16 at 00:00 MARIE LYNCH Jul 28, 2016 08:24
[2016-07-28 08:26] LABS: CHOL/HDL RATIO 2.4 RATIO
[2016-07-28 08:57] LABS: THYROID STIMULATING HORMONE 0.46 MIU/L (0.465-4.680)
[2016-07-28] MEDS: METOPROLOL 25 MG TAB PO SCH ×2 (09:00→21:00)
[2016-07-28] MEDS ORDERED: METHYLPREDNISOLONE 40 MG INJ IV SCH ×2 (09:00→12:00)
[2016-07-28] MEDS: ASPIRIN 81 MG TAB PO SCH (09:40)
[2016-07-28] MEDS: SOD CHLORIDE 0.9% 1,000 ML IV SCH ×2 (09:41→23:39)
[2016-07-28] MEDS: SERTRALINE 100 MG TAB PO SCH (09:41)
[2016-07-28] MEDS: MULTIVITAMINS THERAPEUTIC TAB PO SCH (09:41)
[2016-07-28 09:46] LABS: INR 2.52; PROTIME 27.5 Sec (12.2-14.2); PT RATIO 2.1
[2016-07-28] MEDS: PROPOFOL 100 ML IV SCH ×3 (09:47→21:01)
[2016-07-28] MEDS: AZITHROMYCIN 500MG/NS (PMX) 250 ML IVPB SCH (09:47)
[2016-07-28 11:34] LABS: INR 2.5; PROTIME 27.3 Sec (12.2-14.2); PT RATIO 2.1
[2016-07-28] MEDS ORDERED: METHYLPREDNISOLONE 125 MG INJ IV SCH (12:00)
[2016-07-28] MEDS ORDERED: NPH, HUMAN INSULIN ISOPHANE 3ML VIAL SC SCH ×2 (12:00→14:00)
[2016-07-28] MEDS: DIGOXIN 0.125 MG TAB PO SCH (12:17)
--- NOTE | 2016-07-28 12:23 | CONS ---
DATE OF ADMISSION: 07/27/2016 DATE OF CONSULTATION: 07/28/2016 REASON FOR CONSULTATION: Cardiopulmonary arrest, positive troponin. REQUESTING PHYSICIAN: Dr. Benites from the hospitalist service. HISTORY OF PRESENT ILLNESS: Mr. Dunlap is a 75-year-old male with a history of chronic ob structive pulmonary disease, prior tobacco intake, quit x2 years, eczema, anemia, atrial fibrillatio n, BPH, mitral valve replacement, question of coronary artery bypass graft surgery, dyslipidemia, an d diabetes mellitus, who presented status post sudden collapse with cardiopulmonary arrest. The pat ient required ACLS protocol, with return of spontaneous circulation. Upon presentation to [facility] the patient required emergent intubation. The patient's initial vital signs rev ealed a temperature of 96.4, blood pressure of 155/87, pulse 133, respiratory rate 26, saturating 10 0%. The patient's labs revealed an INR of 2.1, sodium 139, potassium 3.9, creatinine 0.95, BUN 17, LDL 45, HDL 36, TSH depressed at 0.46. Sodium 143, potassium 4.5, creatinine of 1.34, BUN of 18, gl ucose of 447. Troponin initially negative, then positive at 0.841. AST of 142, ALT of 91, alkaline phosphatase 122. LDH of 827. White blood cell count 11.3, hemoglobin 12.3, platelet count of 188. ABG revealing a pH of 7.322, a PaO2 of 496, pCO2 of 47. The patient underwent a chest x-ray reveal ing interval repositioning of tube, persistent cardiomegaly, mild bibasilar atelectasis, prior median sternotomy, and mitral valve replacement. The patient's electrocardiogram revealed a rhythm consistent with sinus tachycardia at a rate 127, normal axis, normal intervals, lateral Q-waves, wi th diffuse ST depressions. The patient has subsequently been placed on broad spectrum antibiotics, heparin, IV fluid hydration and admitted to the ICU, where he remains at this time, tachycardi c, with borderline blood pressures in the 90s. PAST MEDICAL HISTORY: As above in the HPI. MEDICATIONS CURRENTLY IN HOSPITAL: 1. Digoxin 0.125 mg daily. 2. Solu-Medrol 80 mg IV q.6. 3. Insulin sliding scale. 4. Azithromycin 5. Aspirin 81 mg daily. 6. Zoloft 100 mg daily. 7. Multivitamins. 8. Protonix 40 mg IV daily. 9. Atrovent albuterol. 10. IV fluid hydration at 100 mL an hour. 11. Cefepime. 12. Lipitor 20 mg at bedtime. 13. Metoprolol 25 mg p.o. b.i.d. 14. Heparin IV. 15. Dobutamine IV. 16. Fentanyl IV. ALLERGIES: NO KNOWN DRUG ALLERGIES. SOCIAL HISTORY: Prior remote tobacco, quit x2 years. Social ETOH. No illicit drug use. FAMILY HISTORY: Negative for sudden cardiac or early CAD. REVIEW OF SYSTEMS: As above in the HPI. CONSTITUTIONAL: No fevers or chills. PULMONARY: Respiratory failure, status post intubation. GASTROINTESTINAL: No vomiting. GENITOURINARY: Renal failure, improving. PSYCHIATRIC: No documented psychiatric history. NEUROLOGIC: Altered mental state. CARDIOVASCULAR: Positive troponin, cardiac arrest. Tachycardia. PHYSICAL EXAMINATION: VITAL SIGNS: Temperature of 98.4, blood pressure most recently 98/64, pulse 83, respirations 16, sa turating 100%. GENERAL: The patient is intubated, sedated. NECK: JVP approximately 9 cm of water. CHEST: Upper airway sounds, rhonchorous sounds. HEART: Tachycardic, regular rhythm. Normal S1, S2. A I/ systolic murmur. ABDOMEN: Positive bowel sounds, soft. EXTREMITIES: No pitting edema, trace edema, 1+ pulses bilaterally posterior tibial. LABORATORY: As above in the HPI, with most recently from today ABG revealing a pH of 7.37, a PaO2 o f 159, a pCO2 of 40. Sodium 140, potassium 3.9, creatinine 1.0, BUN 17, glucose of 275. LDL 45, HD L 36. TSH is 0.46. Mildly depressed troponin of 0.636, down from a peak of 0.96. INR of 2.5. UA negative. IMAGING STUDIES: Chest x-ray from today revealing a probable slight increase in congestive heart fa ilure and a head CT revealing no acute intracranial pathology. Mild to moderate diffuse volume loss and mild chronic microvascular ischemic change. ECG: As above in the HPI. No further electrocardiograms for my review at this time. IMPRESSION: 1. Cardiac arrest. Assess etiology. 2. Positive troponin/non-ST elevation myocardial infarction. Assess significance. Assess for true acute coronary syndrome. 3. Abnormal electrocardiogram after arrest, with ST depressions. 4. Tachyarrhythmia. 5. History of mitral valve replacement. 6. Hypotension, borderline. 7. Diabetes mellitus with hyperglycemia. 8. Renal failure, improving. 9. Coagulopathy. 10. Anemia. 11. Thrombocytopenia. RECOMMENDATIONS: 1. At this time would maintain the patient on telemetry monitoring to follow rhythm and rate contro l closely. 2. Would discontinue the patient's dobutamine at this time and follow blood pressure and heart rate s closely. 3. Will consider gentle diuresis and will decrease the rate of the patient's IV fluids, watching bl ood sugars closely. 4. Hold the patient's beta jaquelin while the patient is on dobutamine. 5. Will discontinue the patient's heparin, as the patient is coagulopathic from Coumadin and therap eutic at this time. 6. Continue to trend the patient's cardiac enzymes to assess for any significant ongoing cardiac da mage. 7. Continue the patient's antibiotics and follow up all culture data. 8. Check a 2D echocardiogram to further assess the patient's ejection fraction, wall motion and any major valve abnormalities. 9. Continue the patient's aspirin at this time. 10. Continue to follow the patient's mental status and wean the patient's ventilation if possible, with ongoing broad-spectrum antibiotics and follow up all culture data closely. Thank you for allowing me to take part in the care of this patient. I will continue to follow along very closely with you, with further recommendations to be made as the patient progresses through our [facility] inpatient hospital clinical course. Dictated By: ESTEFANI SERNA/SUDHAKAR Conf#: [id number] DID#: [id number] CC: KASSANDRA BENITES MD;*EndCC*
--- NOTE | 2016-07-28 12:55 | PN ---
Date/Time of Note Date/Time of Note DATE: 07/28/16 TIME: 12:36 Assessment/Plan VTE Prophylaxis VTE Prophylaxis Intervention: other (coumadin/therapeutic) Lines/Catheters IV Catheter Type (from Nrs): Peripheral IV Urinary Cath still in place: Yes Reason Cath still needed: other (indicate) Assessment/Plan Assessment/Plan 1. s/p Cardiac arrest with return of spontaneous circulation. unclear etiology , follow up with PCP 2. Acute respiratory failure, status post cardiac arrest, on vent, follow up with pulmonology 3. Mildly elevated troponin, likely cardiac arrest/hypoxia related, unlikely [place] since no CAD in 2013 4. Atrial fibrillation, chronic, controlled rate, was on coumadin, INR is 2.5 5. Bioprosthetic mitral valve replacement(No CABG) 2013 6. COPD, neb, antibiotics 7. Diabetes mellitus type 2, uncontrolled. insulins 8. Dyslipidemia. Continue Lipitor. 9. Sepsis inflammatory response syndrome. Subjective 24 Hr Interval Summary Free Text/Dictation on vent and sedated Exam/Review of Systems Vital Signs Vitals Vital Signs Date Time Temp Pulse Resp B/P Pulse Ox O2 Delivery O2 Flow Rate FiO2 07/28/16 11:15 68 16 85/58 Mechanical Ventilator 07/28/16 11:00 99 07/28/16 08:00 98.6 07/28/16 05:10 40 Intake and Output 07/27/16 07/27/16 07/28/16 15:00 23:00 07:00 Intake Total 90 ml 894.80 ml Output Total 585 ml 355 ml Balance -495 ml 539.80 ml Exam Constitutional: non-verbal, other (sedated on vent) Head: atraumatic, normocephalic Eyes: EOMI, PERRL, nl conjunctiva, nl lids ENMT: nl external ears & nose, nl lips & teeth, nl nasal mucosa & septum Neck: supple Respiratory: wheezing Cardiovascular: irregular rhythm, nl pulses Gastrointestinal: bowel sounds, nl liver, spleen, soft, No ascites, No distended, No firm, No hepatomegaly, No mass, No rebound or guarding, No splenomegaly, No surgical scars Musculoskeletal: nl extremities to inspection Extremities: normal pulses, No calf tenderness, No clubbing, No cyanosis, No edema, No other, No palpable cord, No pitting pedal edema, No tenderness 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: unresponsive (sedated ) Results Result Diagram: 07/28/16 0500 07/28/16 0510 Results 24 hrs Laboratory Tests Test 07/27/16 14:40 07/27/16 14:45 07/27/16 15:23 07/27/16 20:25 Activated Partial Thromboplast Time 36.1 H 166.1 *H Alanine Aminotransferase (ALT/SGPT) 48 91 H Albumin 4.1 2.9 #L Albumin/Globulin Ratio 1.24 1.00 Alkaline Phosphatase 115 122 H Anion Gap 29 H 14 # Aspartate Amino Transf (AST/SGOT) 78 H 142 #H Basophils # 0.1 Basophils % 0.5 Blood Morphology Comment Blood Urea Nitrogen 18 19 Calcium Level 9.8 8.1 L Carbon Dioxide Level 24 28 Chloride Level 95 L 102 Creatinine 1.34 H 1.05 Direct Bilirubin 0.00 0.00 Eosinophils # 0.4 0.2 Eosinophils % 3.9 2.0 Globulin 3.30 H 2.90 Glucose Level 447 *H 307 H Hematocrit 36.9 L 27.5 #L Hemoglobin 12.3 L 9.4 #L INR International Normalized Ratio 2.15 2.90 Indirect Bilirubin 0.3 0.1 Lactic Acid Level 10.9 *H 1.9 Lymphocytes # 2.7 0.1 L Lymphocytes % 23.6 1.0 L Mean Corpuscular Hemoglobin 31.3 31.8 Mean Corpuscular Hemoglobin Concent 33.3 34.2 Mean Corpuscular Volume 93.9 93.1 Mean Platelet Volume 9.0 8.6 Monocytes # 0.7 0.2 L Monocytes % 5.9 2.0 Neutrophils # 7.5 7.7 H Neutrophils % 66.1 95.0 H Nucleated Red Blood Cells # 0.0 Nucleated Red Blood Cells % 0.0 Platelet Count 188 106 #L Potassium Level 4.5 3.9 Prothrombin Time 24.2 H 30.7 #H Prothrombin Time Ratio 1.9 2.4 Red Blood Count 3.93 L 2.95 #L Red Cell Distribution Width 15.7 H 15.4 H Sodium Level 143 140 Total Bilirubin 0.3 0.1 L Total Protein 7.4 5.8 #L Troponin I 0.032 0.839 *H White Blood Count 11.3 H 8.1 # Arterial Blood HCO3 24.0 Arterial Blood Base Excess -2.1 Arterial Blood Oxygen Saturation 99.1 Vicente Test ACCEPTAB Arterial Blood Gas Puncture Site Right Radial Arterial Blood Carboxyhemoglobin 0.3 Arterial Blood Date Drawn 07/27/2016 4:20:50 PM Arterial Blood Methemoglobin 0.2 Arterial Blood pCO2 (Temp correct) 47.5 H Arterial Blood pH (Temp corrected) 7.322 L Arterial Blood pO2 (Temp corrected) 496.2 H Blood Gas A-a O2 Differential 169.3 H Blood Gas Actual Respiration Rate 14 Blood Gas Low PEEP Setting 5.0 Blood Gas Modality VENT - AC Blood Gas Notified Time 07/27/2016 4:29:38 PM Blood Gas Notified Whom M.D. Blood Gas Respiration Rate 14.0 Blood Gas Specimen Source Blood arterial Blood Gas Temperature 37.0 Blood Gas Tidal Volume 550.0 FiO2 100.0 Oxyhemoglobin Percent 98.6 Total Hemoglobin 10.1 L Urine Bilirubin NEGATIVE Urine Clarity CLEAR Urine Color LT. YELLOW Urine Glucose 0.5% H Urine Granular Casts FEW Urine Hemoglobin 1+ H Urine Ketones NEGATIVE Urine Leukocyte Esterase NEGATIVE Urine Microscopic RBC 5-10 Urine Microscopic WBC 0-2 Urine Nitrite NEGATIVE Urine Specific [place] 1.020 Urine Total Protein 4+ H Urine Urobilinogen 1.0 E.U./dL Urine pH 7.0 Creatine Kinase 100 Creatine Kinase Index 4.9 Creatinine Kinase MB (Mass) 4.93 H Differential Comment MANUAL DIFF Lactate Dehydrogenase 827 H Test 07/27/16 21:48 07/27/16 22:57 07/28/16 01:13 07/28/16 01:42 Bedside Glucose 330 H 330 H Creatine Kinase 99 91 Creatine Kinase Index 5.4 7.0 Creatinine Kinase MB (Mass) 5.32 H 6.34 H Lactic Acid Level 1.7 1.3 Troponin I 0.961 *H 0.811 *H Activated Partial Thromboplast Time 38.5 H INR International Normalized Ratio 2.38 Prothrombin Time 26.3 H Prothrombin Time Ratio 2.1 Test 07/28/16 05:00 07/28/16 05:10 07/28/16 06:21 07/28/16 07:00 Basophils # 0.0 Basophils % 0.1 Blood Morphology Comment Creatine Kinase 85 Creatine Kinase Index 5.7 Creatinine Kinase MB (Mass) 4.84 H Eosinophils # 0.0 Eosinophils % 0.0 Hematocrit 27.0 L Hemoglobin 9.1 L Lactic Acid Level 1.2 Lymphocytes # 0.3 L Lymphocytes % 3.5 L Mean Corpuscular Hemoglobin 31.4 Mean Corpuscular Hemoglobin Concent 33.7 Mean Corpuscular Volume 93.3 Mean Platelet Volume 8.9 Monocytes # 0.3 Monocytes % 3.7 Neutrophils # 8.1 H Neutrophils % 92.7 H Nucleated Red Blood Cells # 0.0 Nucleated Red Blood Cells % 0.0 Platelet Count 107 L Red Blood Count 2.89 L Red Cell Distribution Width 15.9 H Troponin I 0.636 *H White Blood Count 8.7 Anion Gap 14 Blood Urea Nitrogen 17 Calcium Level 8.0 L Carbon Dioxide Level 24 Chloride Level 105 Cholesterol Level 87 L Cholesterol/HDL Ratio 2.4 Creatinine 0.95 Glucose Level 288 H HDL Cholesterol 36 LDL Cholesterol, Calculated 45 Magnesium Level 1.7 Phosphorus Level 2.1 L Potassium Level 3.9 Sodium Level 139 Thyroid Stimulating Hormone (TSH) 0.460 L Triglycerides Level 32 Bedside Glucose 272 H Arterial Blood HCO3 23.3 Arterial Blood Base Excess -1.7 Arterial Blood Oxygen Saturation 98.4 Vicente Test ACCEPTAB Arterial Blood Gas Puncture Site Right Radial Arterial Blood Carboxyhemoglobin 0.3 Arterial Blood Date Drawn 07/28/2016 7:28:45 AM Arterial Blood Methemoglobin 0.1 Arterial Blood pCO2 (Temp correct) 40.3 Arterial Blood pH (Temp corrected) 7.379 Arterial Blood pO2 (Temp corrected) 159.6 H Blood Gas A-a O2 Differential 79.3 H Blood Gas Actual Respiration Rate 16 Blood Gas Low PEEP Setting 5.0 Blood Gas Modality VENT - AC Blood Gas Notified Time 07/28/2016 8:16:43 AM Blood Gas Notified Whom JLD Blood Gas Respiration Rate 16.0 Blood Gas Specimen Source Blood arterial Blood Gas Temperature 37.0 Blood Gas Tidal Volume 550.0 FiO2 40.0 Oxyhemoglobin Percent 98.0 Total Hemoglobin 9.4 L Test 07/28/16 08:10 07/28/16 09:36 07/28/16 11:10 07/28/16 12:10 Activated Partial Thromboplast Time INR International Normalized Ratio 2.52 2.50 Lactic Acid Level 1.4 Prothrombin Time 27.5 H 27.3 H Prothrombin Time Ratio 2.1 2.1 Bedside Glucose 275 H 256 H Free Thyroxine 1.61 Medications Medications Current Medications Midazolam HCl 50 ml @ 1 mls/hr TITRATE IV Last administered on 2/8/17at 23:52; Admin Dose 4 MLS/HR; Start 07/27/16 at 15:30 Fentanyl (Sublimaze) 100 ml @ 2.5 mls/hr TITRATE IV Last administered on 16:37; Admin Dose 2.5 MLS/HR; Start 07/27/16 at 16:00 Lorazepam (Ativan) 2 mg Q2H PRN IV RASS GOAL -2 TO -3; Start 07/27/16 at 17:30 Morphine Sulfate (morphine) 2 mg Q2H PRN IV PAIN LEVEL 4-7; Start 07/27/16 at 17 :30 Ondansetron HCl (Zofran Inj) 4 mg Q6H PRN IV NAUSEA AND/OR VOMITING; Start 07/27 at 17:30 Nitroglycerin (Nitroglycerin (Sl Tab) 0.4 Mg) 1 tab Q5M PRN SL CHEST PAIN; Start 07/27/16 at 17:30 Acetaminophen (Tylenol Liquid) 650 mg Q6H PRN PO PAIN LEVEL 1-3 OR FEVER; Start 07/27/16 at 17:30 Acetaminophen (Tylenol Tab) 650 mg Q6H PRN PO PAIN LEVEL 1-3 OR FEVER; Start at 17:30 Lorazepam (Ativan) 1 mg Q2H PRN IV ANXIETY; Start 07/27/16 at 17:30 Docusate Sodium (Colace) 100 mg Q12H PRN PO CONSTIPATION; Start 07/27/16 at 17: 30 Bisacodyl (Dulcolax Supp) 10 mg DAILY PRN MI CONSTIPATION; Start 07/27/16 at 17: 30 Pantoprazole 40 mg 40 mg DAILY@06 IV Last administered on 07/28/16 06:23; Admin Dose 40 MG; Start 07/28/16 at 06:00 Cefepime HCl (Maxipime 2gm/50 ml (Pmx)) 50 ml @ 100 mls/hr Q24H IVPB Last administered on 07/27/16 23:40; Admin Dose 100 MLS/HR; Start 07/27/16 at 22:00 Aspirin (Aspirin) 81 mg DAILY PO Last administered on 07/28/16 09:40; Admin Dose 81 MG; Start 07/28/16 at 09:00 Atorvastatin Calcium (Lipitor) 20 mg HS PO Last administered on 07/27/16 21:46 ; Admin Dose 20 MG; Start 07/27/16 at 21:00 Digoxin (Digoxin) 0.125 mg DAILY@13 PO Last administered on 07/28/16 12:17; Admin Dose 0.125 MG; Start 07/28/16 at 13:00 Sertraline HCl (Zoloft) 100 mg DAILY PO Last administered on 07/28/16 09:41; Admin Dose 100 MG; Start 07/28/16 at 09:00 Miscellaneous Information 1 ea NOTE XX ; Start 07/27/16 at 18:00 Glucose (Glutose) 15 gm Q15M PRN PO DECREASED GLUCOSE; Start 07/27/16 at 18:00 Glucose (Glutose) 22.5 gm Q15M PRN PO DECREASED GLUCOSE; Start 07/27/16 at 18:00 Dextrose (D50w Syringe) 25 ml Q15M PRN IV DECREASED GLUCOSE; Start 07/27/16 at 18:00 Dextrose (D50w Syringe) 50 ml Q15M PRN IV DECREASED GLUCOSE; Start 07/27/16 at 18:00 Glucagon (Glucagen) 1 mg Q15M PRN IM DECREASED GLUCOSE; Start 07/27/16 at 18:00 Glucose (Glutose) 15 gm Q15M PRN BUCCAL DECREASED GLUCOSE; Start 07/27/16 at 18: 00 Metoprolol Tartrate (Lopressor) 25 mg BID PO ; Start 07/27/16 at 21:00 Multivitamins Therapeutic 1 tab 1 tab DAILY PO Last administered on 07/28/16 09 :41; Admin Dose 1 TAB; Start 07/28/16 at 09:00 Sodium Chloride 1,000 ml @ 75 mls/hr [id number] IV Last administered on 07/28/16 09:41; Admin Dose 100 MLS/HR; Start 07/28/16 at 00:00 Azithromycin (Zithromax 500mg/ NS (Pmx)) 250 ml @ 250 mls/hr Q24H IVPB Last administered on 07/28/16 09:47; Admin Dose 250 MLS/HR; Start 07/28/16 at 10:00 Insulin Human NPH (Humulin N) 5 unit Q6 SC Last administered on 07/28/16 12:20 ; Admin Dose 5 UNIT; Start 07/28/16 at 12:00 Methylprednisolone Sodium Succinate (Solu-Medrol) 80 mg Q6 IV Last administered on 07/28/16 12:17; Admin Dose 80 MG; Start 07/28/16 at 12:00 Insulin Aspart NOVOLOG *MILD* ALGORI... Q4H SC Last administered on 07/28/16 12 :19; Admin Dose 3 UNIT; Start 07/28/16 at 12:00 Norepinephrine/ Dextrose (Levophed/D5W) 500 ml @ 1.87 mls/hr TITRATE IV Last administered on 07/28/16 12:18; Admin Dose 1.87 MLS/HR; Start 07/28/16 at 12:00 ERICA GONZALEZ MD Jul 28, 2016 12:46
--- NOTE | 2016-07-28 13:44 | CONS ---
Date/Time of Note Date/Time of Note DATE: 07/28/16 TIME: 13:34 Assessment/Plan Assessment/Plan Problems: (1) T2DM (type 2 diabetes mellitus) Status: Acute Comment: His sugars have risen due to the usage of the steroids in the setting of a not well controlled diabetic. Will use sensitizing drugs in him temporarily while we manage him. Since he is currently placed on tube feedings via NG tube will use long-acting insulin specifically NPH every 8 hours while his steroids are titrated down. Assuming all goes well were able to get him off this and will put him on a more routine regimen as things improve hopefully Qualifiers: Qualified Code: E11.8 - Type 2 diabetes mellitus with complication, without long-term current use of insulin (2) Atrial fibrillation with RVR Status: Chronic Comment: He reportedly has chronic atrial fibrillation. There is a few questions to be answered about how to approach dealing with his heart disease. Especially given his lung disease and the usage of the beta-jaquelin. It would be unusual for a cardioselective beta-jaquelin at this dosage to cause problems although is theoretically possible. Ultimately decision making will be guided by the results of echocardiography (3) Acute respiratory failure Status: Acute Comment: It is a theory that his acute respiratory failure led to the cardiac arrest and PEA which would explain his rapid ability to be resuscitated. Regardless his lung disease is not well controlled and will have to proceed aggressively here. He is already on antibiotics for the possibility of aspiration pneumonia pulmonary is on the case. Qualifiers: Qualified Code: J96.00 - Acute respiratory failure, unspecified whether with hypoxia or hypercapnia (4) Cardiopulmonary arrest with successful resuscitation Status: Acute Comment: Noted Consultation Date/Type/Reason Admit Date/Time Jul 27, 2016 at 17:13 Date of Consultation: Jul 28, 2016 Type of Consultation: Endocrinology Reason for Consultation Diabetes mellitus type 2 out of control patient on steroids Referring Provider: ERICA GONZALEZ MD Hx of Present Illness 75-year-old gentleman who was admitted through the emergency room after having suffered an arrest at home. History is obtained from speaking to 2 of his daughters and review of the charts. Please note he has a pre-existing history of diabetes mellitus type 2. According to the family he had been on glipizide and previously admit had been on metformin which was discontinued in his diabetic control recently had not been good. Most notably in the events leading up to the arrest he had been having a cough with worsening of his underlying breathing difficulties for the last 3-4 weeks. His breathing was getting progressively worse and is using a nebulizer at home. His home medications included prednisone albuterol by hand-held nebulizer anticholinergic medications. He was not on Singulair and he was not on inhaled steroid as a controller medication. He does complain of significant dyspnea and subsequently suffered an arrest during the 1 minute that his daughter was out of the room obtaining her cell phone to call 911. Please see the reports for the events. 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 Medical History: diabetes, hypertension Past Surgical History Status post mitral valve replacement; status post cholecystectomy Family History Significant Family History: diabetes Social History Alcohol Use: none Smoking Status: Former smoker Drug Use: none Exam/Review of Systems Vital Signs Vitals Vital Signs Date Time Temp Pulse Resp B/P Pulse Ox O2 Delivery O2 Flow Rate FiO2 07/28/16 12:00 72 07/28/16 11:15 16 85/58 Mechanical Ventilator 07/28/16 11:00 99 07/28/16 08:00 98.6 07/28/16 05:10 40 Intake and Output 07/27/16 07/27/16 07/28/16 15:00 23:00 07:00 Intake Total 90 ml 894.80 ml Output Total 585 ml 355 ml Balance -495 ml 539.80 ml Exam Intubated Constitutional: non-verbal Respiratory: wheezing Cardiovascular: irregular rhythm Gastrointestinal: nl liver, spleen, soft Results Result Diagram: 07/28/16 0500 07/28/16 0510 Results 24 hrs Laboratory Tests Test 07/27/16 14:40 07/27/16 14:45 07/27/16 15:23 07/27/16 20:25 Activated Partial Thromboplast Time 36.1 H 166.1 *H Alanine Aminotransferase (ALT/SGPT) 48 91 H Albumin 4.1 2.9 #L Albumin/Globulin Ratio 1.24 1.00 Alkaline Phosphatase 115 122 H Anion Gap 29 H 14 # Aspartate Amino Transf (AST/SGOT) 78 H 142 #H Basophils # 0.1 Basophils % 0.5 Blood Morphology Comment Blood Urea Nitrogen 18 19 Calcium Level 9.8 8.1 L Carbon Dioxide Level 24 28 Chloride Level 95 L 102 Creatinine 1.34 H 1.05 Direct Bilirubin 0.00 0.00 Eosinophils # 0.4 0.2 Eosinophils % 3.9 2.0 Globulin 3.30 H 2.90 Glucose Level 447 *H 307 H Hematocrit 36.9 L 27.5 #L Hemoglobin 12.3 L 9.4 #L INR International Normalized Ratio 2.15 2.90 Indirect Bilirubin 0.3 0.1 Lactic Acid Level 10.9 *H 1.9 Lymphocytes # 2.7 0.1 L Lymphocytes % 23.6 1.0 L Mean Corpuscular Hemoglobin 31.3 31.8 Mean Corpuscular Hemoglobin Concent 33.3 34.2 Mean Corpuscular Volume 93.9 93.1 Mean Platelet Volume 9.0 8.6 Monocytes # 0.7 0.2 L Monocytes % 5.9 2.0 Neutrophils # 7.5 7.7 H Neutrophils % 66.1 95.0 H Nucleated Red Blood Cells # 0.0 Nucleated Red Blood Cells % 0.0 Platelet Count 188 106 #L Potassium Level 4.5 3.9 Prothrombin Time 24.2 H 30.7 #H Prothrombin Time Ratio 1.9 2.4 Red Blood Count 3.93 L 2.95 #L Red Cell Distribution Width 15.7 H 15.4 H Sodium Level 143 140 Total Bilirubin 0.3 0.1 L Total Protein 7.4 5.8 #L Troponin I 0.032 0.839 *H White Blood Count 11.3 H 8.1 # Arterial Blood HCO3 24.0 Arterial Blood Base Excess -2.1 Arterial Blood Oxygen Saturation 99.1 Vicente Test ACCEPTAB Arterial Blood Gas Puncture Site Right Radial Arterial Blood Carboxyhemoglobin 0.3 Arterial Blood Date Drawn 07/27/2016 4:20:50 PM Arterial Blood Methemoglobin 0.2 Arterial Blood pCO2 (Temp correct) 47.5 H Arterial Blood pH (Temp corrected) 7.322 L Arterial Blood pO2 (Temp corrected) 496.2 H Blood Gas A-a O2 Differential 169.3 H Blood Gas Actual Respiration Rate 14 Blood Gas Low PEEP Setting 5.0 Blood Gas Modality VENT - AC Blood Gas Notified Time 07/27/2016 4:29:38 PM Blood Gas Notified Whom M.D. Blood Gas Respiration Rate 14.0 Blood Gas Specimen Source Blood arterial Blood Gas Temperature 37.0 Blood Gas Tidal Volume 550.0 FiO2 100.0 Oxyhemoglobin Percent 98.6 Total Hemoglobin 10.1 L Urine Bilirubin NEGATIVE Urine Clarity CLEAR Urine Color LT. YELLOW Urine Glucose 0.5% H Urine Granular Casts FEW Urine Hemoglobin 1+ H Urine Ketones NEGATIVE Urine Leukocyte Esterase NEGATIVE Urine Microscopic RBC 5-10 Urine Microscopic WBC 0-2 Urine Nitrite NEGATIVE Urine Specific [place] 1.020 Urine Total Protein 4+ H Urine Urobilinogen 1.0 E.U./dL Urine pH 7.0 Creatine Kinase 100 Creatine Kinase Index 4.9 Creatinine Kinase MB (Mass) 4.93 H Differential Comment MANUAL DIFF Lactate Dehydrogenase 827 H Test 07/27/16 21:48 07/27/16 22:57 07/28/16 01:13 07/28/16 01:42 Bedside Glucose 330 H 330 H Creatine Kinase 99 91 Creatine Kinase Index 5.4 7.0 Creatinine Kinase MB (Mass) 5.32 H 6.34 H Lactic Acid Level 1.7 1.3 Troponin I 0.961 *H 0.811 *H Activated Partial Thromboplast Time 38.5 H INR International Normalized Ratio 2.38 Prothrombin Time 26.3 H Prothrombin Time Ratio 2.1 Test 07/28/16 05:00 07/28/16 05:10 07/28/16 06:21 07/28/16 07:00 Basophils # 0.0 Basophils % 0.1 Blood Morphology Comment Creatine Kinase 85 Creatine Kinase Index 5.7 Creatinine Kinase MB (Mass) 4.84 H Eosinophils # 0.0 Eosinophils % 0.0 Hematocrit 27.0 L Hemoglobin 9.1 L Lactic Acid Level 1.2 Lymphocytes # 0.3 L Lymphocytes % 3.5 L Mean Corpuscular Hemoglobin 31.4 Mean Corpuscular Hemoglobin Concent 33.7 Mean Corpuscular Volume 93.3 Mean Platelet Volume 8.9 Monocytes # 0.3 Monocytes % 3.7 Neutrophils # 8.1 H Neutrophils % 92.7 H Nucleated Red Blood Cells # 0.0 Nucleated Red Blood Cells % 0.0 Platelet Count 107 L Red Blood Count 2.89 L Red Cell Distribution Width 15.9 H Troponin I 0.636 *H White Blood Count 8.7 Anion Gap 14 Blood Urea Nitrogen 17 Calcium Level 8.0 L Carbon Dioxide Level 24 Chloride Level 105 Cholesterol Level 87 L Cholesterol/HDL Ratio 2.4 Creatinine 0.95 Glucose Level 288 H HDL Cholesterol 36 LDL Cholesterol, Calculated 45 Magnesium Level 1.7 Phosphorus Level 2.1 L Potassium Level 3.9 Sodium Level 139 Thyroid Stimulating Hormone (TSH) 0.460 L Triglycerides Level 32 Bedside Glucose 272 H Arterial Blood HCO3 23.3 Arterial Blood Base Excess -1.7 Arterial Blood Oxygen Saturation 98.4 Vicente Test ACCEPTAB Arterial Blood Gas Puncture Site Right Radial Arterial Blood Carboxyhemoglobin 0.3 Arterial Blood Date Drawn 07/28/2016 7:28:45 AM Arterial Blood Methemoglobin 0.1 Arterial Blood pCO2 (Temp correct) 40.3 Arterial Blood pH (Temp corrected) 7.379 Arterial Blood pO2 (Temp corrected) 159.6 H Blood Gas A-a O2 Differential 79.3 H Blood Gas Actual Respiration Rate 16 Blood Gas Low PEEP Setting 5.0 Blood Gas Modality VENT - AC Blood Gas Notified Time 07/28/2016 8:16:43 AM Blood Gas Notified Whom JLD Blood Gas Respiration Rate 16.0 Blood Gas Specimen Source Blood arterial Blood Gas Temperature 37.0 Blood Gas Tidal Volume 550.0 FiO2 40.0 Oxyhemoglobin Percent 98.0 Total Hemoglobin 9.4 L Test 07/28/16 08:10 07/28/16 09:36 07/28/16 11:10 07/28/16 12:10 Activated Partial Thromboplast Time INR International Normalized Ratio 2.52 2.50 Lactic Acid Level 1.4 Prothrombin Time 27.5 H 27.3 H Prothrombin Time Ratio 2.1 2.1 Bedside Glucose 275 H 256 H Free Thyroxine 1.61 Medications Medications Current Medications Midazolam HCl 50 ml @ 1 mls/hr TITRATE IV Last administered on 07/27/16 23:52; Admin Dose 4 MLS/HR; Start 07/27/16 at 15:30 Fentanyl (Sublimaze) 100 ml @ 2.5 mls/hr TITRATE IV Last administered on 16:37; Admin Dose 2.5 MLS/HR; Start 07/27/16 at 16:00 Lorazepam (Ativan) 2 mg Q2H PRN IV RASS GOAL -2 TO -3; Start 07/27/16 at 17:30 Morphine Sulfate (morphine) 2 mg Q2H PRN IV PAIN LEVEL 4-7; Start 07/27/16 at 17 :30 Ondansetron HCl (Zofran Inj) 4 mg Q6H PRN IV NAUSEA AND/OR VOMITING; Start 07/27 at 17:30 Nitroglycerin (Nitroglycerin (Sl Tab) 0.4 Mg) 1 tab Q5M PRN SL CHEST PAIN; Start 07/27/16 at 17:30 Acetaminophen (Tylenol Liquid) 650 mg Q6H PRN PO PAIN LEVEL 1-3 OR FEVER; Start 07/27/16 at 17:30 Acetaminophen (Tylenol Tab) 650 mg Q6H PRN PO PAIN LEVEL 1-3 OR FEVER; Start at 17:30 Lorazepam (Ativan) 1 mg Q2H PRN IV ANXIETY; Start 07/27/16 at 17:30 Docusate Sodium (Colace) 100 mg Q12H PRN PO CONSTIPATION; Start 07/27/16 at 17: 30 Bisacodyl (Dulcolax Supp) 10 mg DAILY PRN ME CONSTIPATION; Start 07/27/16 at 17: 30 Pantoprazole 40 mg 40 mg DAILY@06 IV Last administered on 07/28/16 06:23; Admin Dose 40 MG; Start 07/28/16 at 06:00 Cefepime HCl (Maxipime 2gm/50 ml (Pmx)) 50 ml @ 100 mls/hr Q24H IVPB Last administered on 07/27/16 23:40; Admin Dose 100 MLS/HR; Start 07/27/16 at 22:00 Aspirin (Aspirin) 81 mg DAILY PO Last administered on 07/28/16 09:40; Admin Dose 81 MG; Start 07/28/16 at 09:00 Atorvastatin Calcium (Lipitor) 20 mg HS PO Last administered on 07/27/16 21:46 ; Admin Dose 20 MG; Start 07/27/16 at 21:00 Digoxin (Digoxin) 0.125 mg DAILY@13 PO Last administered on 07/28/16 12:17; Admin Dose 0.125 MG; Start 07/28/16 at 13:00 Sertraline HCl (Zoloft) 100 mg DAILY PO Last administered on 07/28/16 09:41; Admin Dose 100 MG; Start 07/28/16 at 09:00 Miscellaneous Information 1 ea NOTE XX ; Start 07/27/16 at 18:00 Glucose (Glutose) 15 gm Q15M PRN PO DECREASED GLUCOSE; Start 07/27/16 at 18:00 Glucose (Glutose) 22.5 gm Q15M PRN PO DECREASED GLUCOSE; Start 07/27/16 at 18:00 Dextrose (D50w Syringe) 25 ml Q15M PRN IV DECREASED GLUCOSE; Start 07/27/16 at 18:00 Dextrose (D50w Syringe) 50 ml Q15M PRN IV DECREASED GLUCOSE; Start 07/27/16 at 18:00 Glucagon (Glucagen) 1 mg Q15M PRN IM DECREASED GLUCOSE; Start 07/27/16 at 18:00 Glucose (Glutose) 15 gm Q15M PRN BUCCAL DECREASED GLUCOSE; Start 07/27/16 at 18: 00 Metoprolol Tartrate (Lopressor) 25 mg BID PO ; Start 07/27/16 at 21:00 Multivitamins Therapeutic 1 tab 1 tab DAILY PO Last administered on 07/28/16 09 :41; Admin Dose 1 TAB; Start 07/28/16 at 09:00 Sodium Chloride 1,000 ml @ 75 mls/hr [id number] IV Last administered on 07/28/16 09:41; Admin Dose 100 MLS/HR; Start 07/28/16 at 00:00 Azithromycin (Zithromax 500mg/ NS (Pmx)) 250 ml @ 250 mls/hr Q24H IVPB Last administered on 07/28/16 09:47; Admin Dose 250 MLS/HR; Start 07/28/16 at 10:00 Insulin Human NPH (Humulin N) 5 unit Q6 SC Last administered on 07/28/16 12:20 ; Admin Dose 5 UNIT; Start 07/28/16 at 12:00 Insulin Aspart NOVOLOG *MILD* ALGORI... Q4H SC Last administered on 07/28/16 12 :19; Admin Dose 3 UNIT; Start 07/28/16 at 12:00 Norepinephrine/ Dextrose (Levophed/D5W) 500 ml @ 1.87 mls/hr TITRATE IV Last administered on 07/28/16 12:18; Admin Dose 1.87 MLS/HR; Start 07/28/16 at 12:00 Methylprednisolone Sodium Succinate (Solu-Medrol) 40 mg Q6 IV ; Start 07/28/16 at 18:00 LEONARDA STEELE MD Jul 28, 2016 13:44
--- NOTE | 2016-07-28 14:10 | RADRPT ---
Echocardiogram Report Patient Name: VALERIE JACOBS Gender: Male Date: 1940 Study Date: 28-Jul-2016 Jd Edwards Consultant: Cisco Fletcher RDCS Location: [facility] Ref. Physician: KASSANDRA BENITES Quality: Good Procedures: Transthoracic echocardiogram with complete 2D, M-Mode, and doppler examination. Indications: PEA. 2D/M Mode Doppler Measurement Value Normal Ranges Measurement Value Normal Ranges LVIDd 2D 4.4 3.5 - 5.6 cm AV Mean Jose 2.5 m/sec LVIDs 2D 1.9 2.1 - 4.1 cm AV Mean PG 29.0 mmHg FS 2D 58.3 % AV Peak Jose 3.6 m/sec LVPWd 2D 0.9 0.6 - 1.1 cm AV Peak PG 53.0 mmHg IVSd 2D 0.8 0.6 - 1.1 cm AV VTI 60.6 cm IVS/LVPW 2D 0.9 LVOT Mean Jsoe 1.0 m/sec AoR Diam 2D 3.2 2.0 - 3.7 cm LVOT Mean PG 5.0 mmHg LA/Ao 2D 2 0 - 1 LVOT Peak Jose 1.4 m/sec EDV 2D 87.5 cm3 LVOT Peak PG 8.0 mmHg ESV 2D 6.3 cm3 LVOT VTI 24.4 cm LA Dimen 2D 6.3 2.3 - 4.0 cm MV PHT 73.0 msec LVOT Diam 1.9 cm MV Peak Jose 1.7 m/sec MV Peak PG 11.0 mmHg MV Mean Jose 0.9 m/sec MV Mean PG 4.0 mmHg MV Decel [place] 6 MV PHT Peak Jose 1.6 m/sec MV PHT 73.0 msec MV VTI 37.2 cm MVA PHT 3.0 cm2 TR Peak Jose 2.9 m/sec TR Peak PG 34.0 mmHg RVSP 49.0 mmHg Findings Left Ventricle: Hyperdynamic left ventricular systolic function. Normal left ventricular cavity size. Normal left ventricular wall thickness. Ejection fraction is visually estimated at >65 %. Tissue Doppler/Mitral Doppler indices are indeterminate in this study due to the presence of mitral replacement. Right Ventricle: Mild enlargement of right ventricle. Mild right ventricular hypokinesis. Left Atrium: There is severe enlargement of left atrium. LA Dimension6.30 cm. Right Atrium: There is mild enlargement of right atrium. Mitral Valve: No mitral valve regurgitation is seen. Mitral Valve Bio Prosthesis. Mitral valve Max Velocity 1.59 m/sec. MaxPG 11.00 mmHg. MeanPG 4.00 mmHg. Aortic Valve: Aortic Valve Bio Prosthesis. Aortic valve Max velocity 3.63 m/sec. Max PG 53.00 mmHg. Mean PG 29.00 mmHg. No aortic regurgitation. Tricuspid Valve: Normal appearance of the tricuspid valve. Estimated peak PA systolic pressure 49 mmHg. There is mild tricuspid regurgitation. Pericardium: Normal pericardium with no significant pericardial effusion. Aorta: Normal aortic root. IVC: Dilated inferior vena cava without respiratory collapse, however, patient on ventilator. Conclusions 1.Hyperdynamic left ventricular systolic function. Normal left ventricular cavity size. Normal left ventricular wall thickness. Ejection fraction is visually estimated at >65 %. Tissue Doppler/Mitral Doppler indices are indeterminate in this study due to the presence of mitral replacement. 2.There is severe enlargement of left atrium. LA Dimension6.30 cm. 3.There is mild enlargement of right atrium. 4.No mitral valve regurgitation is seen. Mitral Valve Bio Prosthesis. Mitral valve Max Velocity 1.59 m/sec. MaxPG 11.00 mmHg. MeanPG 4.00 mmHg. 5.Normal appearance of the tricuspid valve. Estimated peak PA systolic pressure 49 mmHg. There is moderate tricuspid regurgitation. 6.Mild enlargement of right ventricle. Mild right ventricular hypokinesis. Electronically Signed By: Mesfin Ramirez 28-Jul-2016 14:09:24 -0800 Patient Name: VALERIE JACOBS Study Date: 28-Jul-2016 [id number]
[2016-07-28] MEDS: LINAGLIPTIN 5 MG TABLET NGT SCH (14:20)
[2016-07-28 16:38] LABS: CK-MB 3.92 ng/ml (0.0-2.4); TROPONIN-I 0.272 ng/ml (0.00-0.12)
[2016-07-28] MEDS: METHYLPREDNISOLONE 40 MG INJ IV SCH (17:59)
[2016-07-28] MEDS: NPH, HUMAN INSULIN ISOPHANE 3ML VIAL SC SCH (18:02)
[2016-07-28] MEDS ORDERED: INSULIN GLARGINE [LANtus] 3 ML PEN SC SCH (20:00)
[2016-07-28] MEDS: MONTELUKAST 10 MG TAB NGT SCH (21:00)
[2016-07-28] MEDS ORDERED: VANCOMYCIN 1.5 GM in SOD CHLORIDE 0.9% 250 ML IVPB SCH (21:00)
[2016-07-28] MEDS: ATORVASTATIN 20 MG TAB PO SCH (21:00)
[2016-07-28] MEDS: CEFEPIME 2GM/50 ML (PMX) 50 ML IVPB SCH (21:01)
--- NOTE | 2016-07-28 21:19 | CONS ---
DATE OF ADMISSION: 07/27/2016 DATE OF CONSULTATION: 07/28/2016 PALLIATIVE CARE CONSULTATION NOTE I reviewed the patient's medical records in detail. In brief, this gentleman, is a 75-year-old male , who sustained a cardiopulmonary arrest and was brought to the emergency room. ACLS protocol was d one, spontaneous circulation occurred, and has been admitted to the intensive care unit. He is intu bated on a ventilator at this time. He has a significant past medical history of COPD, AFib, mitral valve replacement, questionable history of CABG, dyslipidemia, diabetes. Patient has been seen by Dr. Preciado, Dr. Ramirez, Dr. Piedra, Dr. Loja. Most importantly, Dr. Hines evaluated the patie nt in the emergency room on admission post intubation and post CPR, and found patient awake, alert, able to follow simple commands. At this time, he is sedated. There are 2 family members at bedside . I am not certain of his current neurological condition. Family member states he has been sedated since they have been here also. In view of this, I have completed review of medical records and [place] a[place] talk with the patient's granddaughter and daughter. There are 2 other sisters and patient is ma rried. They will be available to speak either tomorrow or Monday morning, depending upon arrangem ents that can be made with their respective workplaces. Hopefully, I do not have any significantly bad information to bring to the family members, and hopefully he will continue to improve, and there is no neurological injury. Therefore, I will update them as far as his current clinical condition. Hopefully, all will go well while he is in the intensive care unit, and he will be successfully extubated. However, if he does not, I appreciate being called in early to introduce myself to family members. Dictated By: JANELL KIM MD, LP/SUDHAKAR Conf#: [id number] DID#: [id number]
[2016-07-29] VITALS (93 sets, daily range): BP systolic 90–144; BP diastolic 57–99; PULSE 55–98; RESP 11–25
[2016-07-29] MEDS: INSULIN ASPART [NOVOLOG] 3 ML PEN SC SCH ×6 (00:02→21:00)
[2016-07-29] MEDS: NPH, HUMAN INSULIN ISOPHANE 3ML VIAL SC SCH ×4 (00:03→17:55)
[2016-07-29] MEDS: IPRATROPIUM (HFA) 12.9 GM INHALER INH SCH ×2 (01:30→07:54)
[2016-07-29] MEDS: ALBUTEROL HFA 8 GM INHALER INH SCH ×2 (01:30→07:54)
[2016-07-29] MEDS: PROPOFOL 100 ML IV SCH (02:33)
[2016-07-29] MEDS: PANTOPRAZOLE 40 MG INJ IV SCH (05:48)
[2016-07-29] MEDS: METHYLPREDNISOLONE 40 MG INJ IV SCH ×2 (05:49)
[2016-07-29 06:22] LABS: ABNORMAL IP MESSAGE 1; BASOPHILS % 0.1 % (0.0-2.0); HEMATOCRIT 29.6 % (42.0-52.0); HEMOGLOBIN 9.7 g/dl (14.0-18.0); LYMPHOCYTES # 0.4 10^3/ul (0.8-2.9); LYMPHOCYTES % 2.2 % (15.0-51.0); MEAN CORPUSCULAR HEMOGLOBIN 31.2 pg (29.0-33.0); MEAN CORPUSCULAR HGB CONC 32.8 g/dl (32.0-37.0); MEAN CORPUSCULAR VOLUME 95.2 fl (82.0-101.0); MONOCYTE # 0.5 10^3/ul (0.3-0.9); MONOCYTES % 3.2 % (0.0-11.0); NEUTROPHIL # 15.2 10^3/ul (1.6-7.5); NEUTROPHILS % 93.8 % (39.0-77.0); PLATELET COUNT 177 10^3/UL (140-415); RED BLOOD COUNT 3.11 10^6/ul (4.70-6.10); RED CELL DISTRIBUTION WIDTH 14.6 % (11.5-14.5); WHITE BLOOD COUNT 16.2 10^3/ul (4.8-10.8)
[2016-07-29 06:35] LABS: ALBUMIN 2.9 g/dl (3.3-4.9)
[2016-07-29 06:36] LABS: POTASSIUM 4.1 mmol/L (3.5-5.1)
[2016-07-29 06:38] LABS: BILIRUBIN,INDIRECT 0.1 mg/dl (0-1.1); BILIRUBIN,TOTAL 0.1 mg/dl (0.2-1.3); CREATININE 0.99 mg/dl (0.61-1.24); TOTAL PROTEIN 5.8 g/dl (6.1-8.1)
[2016-07-29 06:39] LABS: CALCIUM 8.4 mg/dl (8.4-10.2); CHOL/HDL RATIO 2.2 RATIO
[2016-07-29 06:43] LABS: TROPONIN-I 0.129 ng/ml (0.00-0.12)
[2016-07-29 07:14] LABS: ADD SCAN DIFF HOLD/SCAN
[2016-07-29] MEDS: LINAGLIPTIN 5 MG TABLET NGT SCH (08:28)
[2016-07-29] MEDS: MULTIVITAMINS THERAPEUTIC TAB PO SCH (08:29)
[2016-07-29] MEDS: METOPROLOL 25 MG TAB PO SCH ×2 (08:29→21:03)
[2016-07-29] MEDS: SERTRALINE 100 MG TAB PO SCH (08:29)
[2016-07-29] MEDS: ASPIRIN 81 MG TAB PO SCH (08:29)
[2016-07-29] MEDS: AZITHROMYCIN 500MG/NS (PMX) 250 ML IVPB SCH (09:20)
--- NOTE | 2016-07-29 09:50 | CONS ---
Date/Time of Note Date/Time of Note DATE: 07/29/16 TIME: 09:46 Assessment/Plan Assessment/Plan Additional Assessment/Plan Ventilator settings; assist control of 14, tidal volume 500, PEEP of 5, 430% FiO2. Assessment and recommendations; 1. Patient admitted with severe asthma/COPD exacerbation with significant clinical improvement. 2. History of mitral valve replacement. Next 3. Diabetes. Exacerbated by high-dose systemic steroids. 4. Leukocytosis, likely a steroid response. Next Patient had been switched over to CPAP mode currently has good weaning parameters. An ABG be performed 45 minutes. Meanwhile NPH insulin dosing has been increased to 10 units every 6 hours for correction of hyperglycemia. I did have a detailed discussion the patient's daughter at bedside and answered all her questions. Consultation Date/Type/Reason Admit Date/Time Jul 27, 2016 at 17:13 Type of Consultation: Pulmonary/critical Referring Provider: ERICA GONZALEZ MD 24 HR Interval Summary Free Text/Dictation Patient condition is critical but stable. Patient has been taken off sedation short while ago he is completely awake alert. Denies any shortness of breath. General examination; elderly male, orally intubated, currently in no distress. Exam/Review of Systems Vital Signs Vitals Vital Signs Date Time Temp Pulse Resp B/P Pulse Ox O2 Delivery O2 Flow Rate FiO2 07/29/16 09:15 84 15 119/81 96 Mechanical Ventilator 07/29/16 08:00 98.9 07/29/16 07:56 30 Intake and Output 07/28/16 07/28/16 07/29/16 15:00 23:00 07:00 Intake Total 1086.20 ml 1016.027 ml 914.415 ml Output Total 240 ml 260 ml 225 ml Balance 846.20 ml 756.027 ml 689.415 ml Exam HEENT examination; supple neck, no JVD. No lymphadenopathy. Or intubated. Pupils are midsize reactive to light. No thyromegaly. Chest examination; diminished breath sound bilaterally with bilateral expiratory wheezing. S1-S2 audible. There is a systolic murmur grade 2/6. Mechanical S1. Regular rhythm. Next Abdomen examination; soft, nontender, no audible. Next Extremity examination; no peripheral edema. Pulses 1+ bilaterally. EVS ATTENDANT examination; patient is awake, follows commands, moves all 4 extremities. Results Result Diagram: 07/29/16 0528 07/29/16 0528 Results 24 hrs Laboratory Tests Test 07/28/16 11:10 07/28/16 12:10 07/28/16 13:30 07/28/16 15:20 Free Thyroxine 1.61 INR International Normalized Ratio 2.50 Prothrombin Time 27.3 H Prothrombin Time Ratio 2.1 Bedside Glucose 256 H Lactic Acid Level 1.2 Digoxin Level 0.7 L Test 07/28/16 16:00 07/28/16 16:12 07/28/16 17:53 07/28/16 17:54 Creatine Kinase 51 Creatine Kinase Index 7.7 Creatinine Kinase MB (Mass) 3.92 H Troponin I 0.272 *H Bedside Glucose 223 H 254 H 256 H Test 07/28/16 18:00 07/28/16 20:30 07/28/16 20:37 07/28/16 23:56 Lactic Acid Level 1.1 1.2 Bedside Glucose 282 H 253 H Test 07/29/16 03:52 07/29/16 05:28 07/29/16 05:55 07/29/16 08:14 Bedside Glucose 266 H 242 H 295 H Alanine Aminotransferase (ALT/SGPT) 70 H Albumin 2.9 L Albumin/Globulin Ratio 1.00 Alkaline Phosphatase 99 Anion Gap 12 Aspartate Amino Transf (AST/SGOT) 60 #H Basophils # 0.0 Basophils % 0.1 Blood Urea Nitrogen 18 Calcium Level 8.4 Carbon Dioxide Level 24 Chloride Level 109 Cholesterol Level 97 L Cholesterol/HDL Ratio 2.2 Creatinine 0.99 Direct Bilirubin 0.00 Eosinophils # 0.0 Eosinophils % 0.0 Globulin 2.90 Glucose Level 252 H HDL Cholesterol 43 Hematocrit 29.6 L Hemoglobin 9.7 L Indirect Bilirubin 0.1 LDL Cholesterol, Calculated 36 Lymphocytes # 0.4 L Lymphocytes % 2.2 L Magnesium Level 2.1 Mean Corpuscular Hemoglobin 31.2 Mean Corpuscular Hemoglobin Concent 32.8 Mean Corpuscular Volume 95.2 Mean Platelet Volume 11.0 #H Monocytes # 0.5 Monocytes % 3.2 Neutrophils # 15.2 H Neutrophils % 93.8 H Nucleated Red Blood Cells # 0.0 Nucleated Red Blood Cells % 0.0 Platelet Count 177 Potassium Level 4.1 Red Blood Count 3.11 L Red Cell Distribution Width 14.6 H Sodium Level 141 Total Bilirubin 0.1 L Total Protein 5.8 L Triglycerides Level 92 Troponin I 0.129 *H White Blood Count 16.2 #H Medications Medications Current Medications Midazolam HCl 50 ml @ 1 mls/hr TITRATE IV Last administered on 07/27/16 23:52; Admin Dose 4 MLS/HR; Start 07/27/16 at 15:30 Fentanyl (Sublimaze) 100 ml @ 2.5 mls/hr TITRATE IV Last administered on 16:37; Admin Dose 2.5 MLS/HR; Start 07/27/16 at 16:00 Lorazepam (Ativan) 2 mg Q2H PRN IV RASS GOAL -2 TO -3; Start 07/27/16 at 17:30 Morphine Sulfate (morphine) 2 mg Q2H PRN IV PAIN LEVEL 4-7; Start 07/27/16 at 17 :30 Ondansetron HCl (Zofran Inj) 4 mg Q6H PRN IV NAUSEA AND/OR VOMITING; Start 07/27 at 17:30 Nitroglycerin (Nitroglycerin (Sl Tab) 0.4 Mg) 1 tab Q5M PRN SL CHEST PAIN; Start 07/27/16 at 17:30 Acetaminophen (Tylenol Liquid) 650 mg Q6H PRN PO PAIN LEVEL 1-3 OR FEVER; Start 07/27/16 at 17:30 Acetaminophen (Tylenol Tab) 650 mg Q6H PRN PO PAIN LEVEL 1-3 OR FEVER; Start at 17:30 Lorazepam (Ativan) 1 mg Q2H PRN IV ANXIETY; Start 07/27/16 at 17:30 Docusate Sodium (Colace) 100 mg Q12H PRN PO CONSTIPATION; Start 07/27/16 at 17: 30 Bisacodyl (Dulcolax Supp) 10 mg DAILY PRN NM CONSTIPATION; Start 07/27/16 at 17: 30 Pantoprazole 40 mg 40 mg DAILY@06 IV Last administered on 07/29/16 05:48; Admin Dose 40 MG; Start 07/28/16 at 06:00 Cefepime HCl (Maxipime 2gm/50 ml (Pmx)) 50 ml @ 100 mls/hr Q24H IVPB Last administered on 07/28/16 21:01; Admin Dose 100 MLS/HR; Start 07/27/16 at 22:00 Aspirin (Aspirin) 81 mg DAILY PO Last administered on 07/29/16 08:29; Admin Dose 81 MG; Start 07/28/16 at 09:00 Atorvastatin Calcium (Lipitor) 20 mg HS PO Last administered on 07/28/16 21:00 ; Admin Dose 20 MG; Start 07/27/16 at 21:00 Digoxin (Digoxin) 0.125 mg DAILY@13 PO Last administered on 07/28/16 12:17; Admin Dose 0.125 MG; Start 07/28/16 at 13:00 Sertraline HCl (Zoloft) 100 mg DAILY PO Last administered on 07/29/16 08:29; Admin Dose 100 MG; Start 07/28/16 at 09:00 Miscellaneous Information 1 ea NOTE XX ; Start 07/27/16 at 18:00 Glucose (Glutose) 15 gm Q15M PRN PO DECREASED GLUCOSE; Start 07/27/16 at 18:00 Glucose (Glutose) 22.5 gm Q15M PRN PO DECREASED GLUCOSE; Start 07/27/16 at 18:00 Dextrose (D50w Syringe) 25 ml Q15M PRN IV DECREASED GLUCOSE; Start 07/27/16 at 18:00 Dextrose (D50w Syringe) 50 ml Q15M PRN IV DECREASED GLUCOSE; Start 07/27/16 at 18:00 Glucagon (Glucagen) 1 mg Q15M PRN IM DECREASED GLUCOSE; Start 07/27/16 at 18:00 Glucose (Glutose) 15 gm Q15M PRN BUCCAL DECREASED GLUCOSE; Start 07/27/16 at 18: 00 Metoprolol Tartrate (Lopressor) 25 mg BID PO ; Start 07/27/16 at 21:00 Multivitamins Therapeutic 1 tab 1 tab DAILY PO Last administered on 07/29/16 08:29; Admin Dose 1 TAB; Start 07/28/16 at 09:00 Sodium Chloride 1,000 ml @ 75 mls/hr [id number] IV Last administered on 07/28/16 23:39; Admin Dose 75 MLS/HR; Start 07/28/16 at 00:00 Azithromycin (Zithromax 500mg/ NS (Pmx)) 250 ml @ 250 mls/hr Q24H IVPB Last administered on 07/29/16 09:20; Admin Dose 250 MLS/HR; Start 07/28/16 at 10:00 Insulin Aspart NOVOLOG *MILD* ALGORI... Q4H SC Last administered on 07/29/16 08:28; Admin Dose 4 UNIT; Start 07/28/16 at 12:00 Norepinephrine/ Dextrose (Levophed/D5W) 500 ml @ 1.87 mls/hr TITRATE IV Last administered on 07/28/16 12:18; Admin Dose 1.87 MLS/HR; Start 07/28/16 at 12:00 Methylprednisolone Sodium Succinate (Solu-Medrol) 40 mg Q6 IV Last administered on 07/29/16 05:49; Admin Dose 40 MG; Start 07/28/16 at 18:00 Montelukast Sodium (Singulair) 10 mg HS NGT Last administered on 07/28/16 21:00 ; Admin Dose 10 MG; Start 07/28/16 at 21:00 Linagliptin (Tradjenta) 5 mg DAILY NGT Last administered on 07/29/16 08:28; Admin Dose 5 MG; Start 07/28/16 at 13:30 Insulin Glargine (Lantus) 10 unit DAILY@20 SC Last administered on 07/28/16 21: 42; Admin Dose 10 UNIT; Start 07/28/16 at 20:00 Insulin Human NPH (Humulin N) 5 unit Q6 SC Last administered on 07/29/16 05:57 ; Admin Dose 5 UNIT; Start 07/28/16 at 18:00 Methylprednisolone Sodium Succinate (Solu-Medrol) 80 mg Q6 IV ; Start 07/29/16 at 12:00; Status MARIE MEDINA Jul 29, 2016 09:50
--- NOTE | 2016-07-29 09:55 | CONS ---
Date/Time of Note Date/Time of Note DATE: 07/29/16 TIME: 09:50 Assessment/Plan Assessment/Plan Chief Complaint/Hosp Course MPRESSION: 1. Cardiac arrest. Assess etiology. 2. Positive troponin/non-ST elevation myocardial infarction. Assess significance. Assess for true acute coronary syndrome.-now downtrending/NL EF by echo 3. Abnormal electrocardiogram after arrest, with ST depressions. 4. Tachyarrhythmia. 5. History of mitral valve replacement. 6. Hypotension, borderline.-improved/off presssors 7. Diabetes mellitus with hyperglycemia. 8. Renal failure, improving. 9. Coagulopathy-on going 10. Anemia. 11. Thrombocytopenia. 12.CHF-diastolic acute on likely chronic Recc: -Tele monitoring -Continue digoxin/statin/asa -Follow volume status/BP closely -Wean vent as tolerated -Continue abx's/steroids/bronchodilators -BB as tolerated only Problems: Consultation Date/Type/Reason Admit Date/Time Jul 27, 2016 at 17:13 Initial Consult Date 07/28/16 Type of Consultation: Cardiology Reason for Consultation cardiac arrest Referring Provider: ERICA GONZALEZ MD Exam/Review of Systems Vital Signs Vitals Vital Signs Date Time Temp Pulse Resp B/P Pulse Ox O2 Delivery O2 Flow Rate FiO2 07/29/16 09:15 84 15 119/81 96 Mechanical Ventilator 07/29/16 08:00 98.9 07/29/16 07:56 30 Intake and Output 07/28/16 07/28/16 07/29/16 15:00 23:00 07:00 Intake Total 1086.20 ml 1016.027 ml 914.415 ml Output Total 240 ml 260 ml 225 ml Balance 846.20 ml 756.027 ml 689.415 ml Exam Review of Systems: CONSTITUTIONAL: No fevers, chills. PULMONARY: intubated CARDIOVASCULAR: No obvious chest pain/palpitations GASTROINTESTINAL: No nausea/vomiting. GENITOURINARY: No hematuria/dysuria. MUSCULOSKELETAL: No obvious myagias/arthalgias. PSYCHIATRIC: The patient denies depression. NEUROLOGIC: Encephalopathy Constitutional: alert, oriented Psych: no complaints Head: normocephalic ENMT: mucosa pink and moist Neck: jvd (9 cm water), supple Respiratory: diminished breath sounds (at bases/B) Cardiovascular: regular rate and rhythm Gastrointestinal: non-tender, soft Musculoskeletal: muscle tone (normal) Extremities: edema (trace/B) 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: confused Results Result Diagram: 07/29/1652707/29/16 05 Results 24 hrs Laboratory Tests Test 07/28/16 11:10 07/28/16 12:10 07/28/16 13:30 07/28/16 15:20 Free Thyroxine 1.61 INR International Normalized Ratio 2.50 Prothrombin Time 27.3 H Prothrombin Time Ratio 2.1 Bedside Glucose 256 H Lactic Acid Level 1.2 Digoxin Level 0.7 L Test 07/28/16 16:00 07/28/16 16:12 07/28/16 17:53 07/28/16 17:54 Creatine Kinase 51 Creatine Kinase Index 7.7 Creatinine Kinase MB (Mass) 3.92 H Troponin I 0.272 *H Bedside Glucose 223 H 254 H 256 H Test 07/28/16 18:00 07/28/16 20:30 07/28/16 20:37 07/28/16 23:56 Lactic Acid Level 1.1 1.2 Bedside Glucose 282 H 253 H Test 07/29/16 03:52 07/29/16 05:28 07/29/16 05:55 07/29/16 08:14 Bedside Glucose 266 H 242 H 295 H Alanine Aminotransferase (ALT/SGPT) 70 H Albumin 2.9 L Albumin/Globulin Ratio 1.00 Alkaline Phosphatase 99 Anion Gap 12 Aspartate Amino Transf (AST/SGOT) 60 #H Basophils # 0.0 Basophils % 0.1 Blood Urea Nitrogen 18 Calcium Level 8.4 Carbon Dioxide Level 24 Chloride Level 109 Cholesterol Level 97 L Cholesterol/HDL Ratio 2.2 Creatinine 0.99 Direct Bilirubin 0.00 Eosinophils # 0.0 Eosinophils % 0.0 Globulin 2.90 Glucose Level 252 H HDL Cholesterol 43 Hematocrit 29.6 L Hemoglobin 9.7 L Indirect Bilirubin 0.1 LDL Cholesterol, Calculated 36 Lymphocytes # 0.4 L Lymphocytes % 2.2 L Magnesium Level 2.1 Mean Corpuscular Hemoglobin 31.2 Mean Corpuscular Hemoglobin Concent 32.8 Mean Corpuscular Volume 95.2 Mean Platelet Volume 11.0 #H Monocytes # 0.5 Monocytes % 3.2 Neutrophils # 15.2 H Neutrophils % 93.8 H Nucleated Red Blood Cells # 0.0 Nucleated Red Blood Cells % 0.0 Platelet Count 177 Potassium Level 4.1 Red Blood Count 3.11 L Red Cell Distribution Width 14.6 H Sodium Level 141 Total Bilirubin 0.1 L Total Protein 5.8 L Triglycerides Level 92 Troponin I 0.129 *H White Blood Count 16.2 #H Medications Medications Current Medications Midazolam HCl 50 ml @ 1 mls/hr TITRATE IV Last administered on 07/27/16 23:52; Admin Dose 4 MLS/HR; Start 07/27/16 at 15:30 Fentanyl (Sublimaze) 100 ml @ 2.5 mls/hr TITRATE IV Last administered on 16:37; Admin Dose 2.5 MLS/HR; Start 07/27/16 at 16:00 Lorazepam (Ativan) 2 mg Q2H PRN IV RASS GOAL -2 TO -3; Start 07/27/16 at 17:30 Morphine Sulfate (morphine) 2 mg Q2H PRN IV PAIN LEVEL 4-7; Start 07/27/16 at 17 :30 Ondansetron HCl (Zofran Inj) 4 mg Q6H PRN IV NAUSEA AND/OR VOMITING; Start 07/27 at 17:30 Nitroglycerin (Nitroglycerin (Sl Tab) 0.4 Mg) 1 tab Q5M PRN SL CHEST PAIN; Start 07/27/16 at 17:30 Acetaminophen (Tylenol Liquid) 650 mg Q6H PRN PO PAIN LEVEL 1-3 OR FEVER; Start 07/27/16 at 17:30 Acetaminophen (Tylenol Tab) 650 mg Q6H PRN PO PAIN LEVEL 1-3 OR FEVER; Start at 17:30 Lorazepam (Ativan) 1 mg Q2H PRN IV ANXIETY; Start 07/27/16 at 17:30 Docusate Sodium (Colace) 100 mg Q12H PRN PO CONSTIPATION; Start 07/27/16 at 17: 30 Bisacodyl (Dulcolax Supp) 10 mg DAILY PRN IN CONSTIPATION; Start 07/27/16 at 17: 30 Pantoprazole 40 mg 40 mg DAILY@06 IV Last administered on 07/29/16 05:48; Admin Dose 40 MG; Start 07/28/16 at 06:00 Cefepime HCl (Maxipime 2gm/50 ml (Pmx)) 50 ml @ 100 mls/hr Q24H IVPB Last administered on 07/28/16 21:01; Admin Dose 100 MLS/HR; Start 07/27/16 at 22:00 Aspirin (Aspirin) 81 mg DAILY PO Last administered on 07/29/16 08:29; Admin Dose 81 MG; Start 07/28/16 at 09:00 Atorvastatin Calcium (Lipitor) 20 mg HS PO Last administered on 07/28/16 21:00 ; Admin Dose 20 MG; Start 07/27/16 at 21:00 Digoxin (Digoxin) 0.125 mg DAILY@13 PO Last administered on 07/28/16 12:17; Admin Dose 0.125 MG; Start 07/28/16 at 13:00 Sertraline HCl (Zoloft) 100 mg DAILY PO Last administered on 07/29/16 08:29; Admin Dose 100 MG; Start 07/28/16 at 09:00 Miscellaneous Information 1 ea NOTE XX ; Start 07/27/16 at 18:00 Glucose (Glutose) 15 gm Q15M PRN PO DECREASED GLUCOSE; Start 07/27/16 at 18:00 Glucose (Glutose) 22.5 gm Q15M PRN PO DECREASED GLUCOSE; Start 07/27/16 at 18:00 Dextrose (D50w Syringe) 25 ml Q15M PRN IV DECREASED GLUCOSE; Start 07/27/16 at 18:00 Dextrose (D50w Syringe) 50 ml Q15M PRN IV DECREASED GLUCOSE; Start 07/27/16 at 18:00 Glucagon (Glucagen) 1 mg Q15M PRN IM DECREASED GLUCOSE; Start 07/27/16 at 18:00 Glucose (Glutose) 15 gm Q15M PRN BUCCAL DECREASED GLUCOSE; Start 07/27/16 at 18: 00 Metoprolol Tartrate (Lopressor) 25 mg BID PO ; Start 07/27/16 at 21:00 Multivitamins Therapeutic 1 tab 1 tab DAILY PO Last administered on 07/29/16 08:29; Admin Dose 1 TAB; Start 07/28/16 at 09:00 Sodium Chloride 1,000 ml @ 75 mls/hr [id number] IV Last administered on 07/28/16 23:39; Admin Dose 75 MLS/HR; Start 07/28/16 at 00:00 Azithromycin (Zithromax 500mg/ NS (Pmx)) 250 ml @ 250 mls/hr Q24H IVPB Last administered on 07/29/16 09:20; Admin Dose 250 MLS/HR; Start 07/28/16 at 10:00 Insulin Aspart NOVOLOG *MILD* ALGORI... Q4H SC Last administered on 07/29/16 08:28; Admin Dose 4 UNIT; Start 07/28/16 at 12:00 Norepinephrine/ Dextrose (Levophed/D5W) 500 ml @ 1.87 mls/hr TITRATE IV Last administered on 07/28/16 12:18; Admin Dose 1.87 MLS/HR; Start 07/28/16 at 12:00 Montelukast Sodium (Singulair) 10 mg HS NGT Last administered on 07/28/16 21:00 ; Admin Dose 10 MG; Start 07/28/16 at 21:00 Linagliptin (Tradjenta) 5 mg DAILY NGT Last administered on 07/29/16 08:28; Admin Dose 5 MG; Start 07/28/16 at 13:30 Insulin Glargine (Lantus) 10 unit DAILY@20 SC Last administered on 07/28/16 21: 42; Admin Dose 10 UNIT; Start 07/28/16 at 20:00 Methylprednisolone Sodium Succinate (Solu-Medrol) 80 mg Q6 IV ; Start 07/29/16 at 12:00 Insulin Human NPH (Humulin N) 10 unit Q6 SC ; Start 07/29/16 at 12:00 ESTEFANI BORREGO Jul 29, 2016 09:55
[2016-07-29 10:01] LABS: TROPONIN-I 0.122 ng/ml (0.00-0.12)
[2016-07-29 10:02] LABS: CK-MB 1.86 ng/ml (0.0-2.4)
[2016-07-29 11:39] LABS: Allen Test ACCEPTAB; Arterial Base Excess -4.7 mmol/L (-3.0-3); Arterial COHb 0.3 % (0.0-3.0); Arterial Fraction of Oxyhgb 96.6 % (93.0-99.0); Arterial HCO3 20.1 mmol/L (22.0-26.0); Arterial MetHb 0.2 % (0.0-1.5); Arterial Total Hemglobin 10.8 g/dl (12.0-18.0); Blood Gas PS 10; MODE VENT - CPAP
[2016-07-29] MEDS: METHYLPREDNISOLONE 125 MG INJ IV SCH ×2 (12:27→17:55)
--- NOTE | 2016-07-29 12:28 | PN ---
Date/Time of Note Date/Time of Note DATE: 07/29/16 TIME: 12:20 Assessment/Plan VTE Prophylaxis VTE Prophylaxis Intervention: other (coumadin) Lines/Catheters IV Catheter Type (from Nrs): Peripheral IV Urinary Cath still in place: Yes Reason Cath still needed: other (indicate) Assessment/Plan Assessment/Plan 1. s/p Cardiac arrest with PEA per EMS, unclear etiology, follow up with cardiology 2. Acute respiratory failure, status post cardiac arrest, on vent, follow up with pulmonology for weaning 3. COPD, acute exacerbation, on neb, antibiotics, and steroid 4. Mildly elevated troponin, likely cardiac arrest/hypoxia related, unlikely [place] since no CAD in 2013 5. Atrial fibrillation, chronic, controlled rate, was on coumadin, INR is 2.5 6. Bioprosthetic mitral valve replacement(No CABG) 2013 7. Diabetes mellitus type 2, uncontrolled.on insulins, on steroid, follow up with endo 8. Dyslipidemia. Continue Lipitor. 9. Sepsis inflammatory response syndrome. 10. Talked to the family at bedside 11. Spend 40 minutes on patient care Subjective 24 Hr Interval Summary Free Text/Dictation alert, on vent Exam/Review of Systems Vital Signs Vitals Vital Signs Date Time Temp Pulse Resp B/P Pulse Ox O2 Delivery O2 Flow Rate FiO2 07/29/16 11:00 19 30 07/29/16 09:55 92 100 07/29/16 09:15 119/81 Mechanical Ventilator 07/29/16 08:00 98.9 Intake and Output 07/28/16 07/28/16 07/29/16 15:00 23:00 07:00 Intake Total 1086.20 ml 1016.027 ml 949.415 ml Output Total 240 ml 260 ml 255 ml Balance 846.20 ml 756.027 ml 694.415 ml Exam Constitutional: alert, oriented, well developed Psych: nl mood/affect, no complaints Head: atraumatic, normocephalic Eyes: EOMI, nl conjunctiva, nl lids ENMT: nl external ears & nose, nl lips & teeth, nl nasal mucosa & septum Neck: non-tender, supple Respiratory: crackles/rales, wheezing Cardiovascular: irregular rhythm, nl pulses, No S3, No S4, No bruits, No diastolic murmur, No edema, No gallop, No jugular venous distention (JVD), No murmurs/extra sounds, No other, No rub, No systolic murmur Gastrointestinal: nl liver, spleen, non-tender, soft, No ascites, No bowel sounds, No distended, No firm, No hepatomegaly, No mass , No other, No rebound or guarding, No splenomegaly, No surgical scars, No tender Musculoskeletal: nl extremities to inspection Extremities: normal pulses 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: [employer] II-XII intact, nl mental status, nl strength Skin: nl turgor, rash or lesions Lymph: nl lymph nodes Results Result Diagram: 07/29/1652707/29/16527 Results 24 hrs Laboratory Tests Test 07/28/16 13:30 07/28/16 15:20 07/28/16 16:00 07/28/16 16:12 Lactic Acid Level 1.2 Digoxin Level 0.7 L Creatine Kinase 51 Creatine Kinase Index 7.7 Creatinine Kinase MB (Mass) 3.92 H Troponin I 0.272 *H Bedside Glucose 223 H Test 07/28/16 17:53 07/28/16 17:54 07/28/16 18:00 07/28/16 20:30 Bedside Glucose 254 H 256 H Lactic Acid Level 1.1 1.2 Test 07/28/16 20:37 07/28/16 23:56 07/29/16 03:52 07/29/16 05:28 Bedside Glucose 282 H 253 H 266 H Alanine Aminotransferase (ALT/SGPT) 70 H Albumin 2.9 L Albumin/Globulin Ratio 1.00 Alkaline Phosphatase 99 Anion Gap 12 Aspartate Amino Transf (AST/SGOT) 60 #H Basophils # 0.0 Basophils % 0.1 Blood Urea Nitrogen 18 Calcium Level 8.4 Carbon Dioxide Level 24 Chloride Level 109 Cholesterol Level 97 L Cholesterol/HDL Ratio 2.2 Creatinine 0.99 Direct Bilirubin 0.00 Eosinophils # 0.0 Eosinophils % 0.0 Globulin 2.90 Glucose Level 252 H HDL Cholesterol 43 Hematocrit 29.6 L Hemoglobin 9.7 L Indirect Bilirubin 0.1 LDL Cholesterol, Calculated 36 Lymphocytes # 0.4 L Lymphocytes % 2.2 L Magnesium Level 2.1 Mean Corpuscular Hemoglobin 31.2 Mean Corpuscular Hemoglobin Concent 32.8 Mean Corpuscular Volume 95.2 Mean Platelet Volume 11.0 #H Monocytes # 0.5 Monocytes % 3.2 Neutrophils # 15.2 H Neutrophils % 93.8 H Nucleated Red Blood Cells # 0.0 Nucleated Red Blood Cells % 0.0 Platelet Count 177 Potassium Level 4.1 Red Blood Count 3.11 L Red Cell Distribution Width 14.6 H Sodium Level 141 Total Bilirubin 0.1 L Total Protein 5.8 L Triglycerides Level 92 Troponin I 0.129 *H White Blood Count 16.2 #H Test 07/29/16 05:55 07/29/16 08:14 07/29/16 09:16 07/29/16 11:00 Bedside Glucose 242 H 295 H Creatine Kinase 27 Creatine Kinase Index 6.9 Creatinine Kinase MB (Mass) 1.86 Troponin I 0.122 *H Arterial Blood HCO3 20.1 L Arterial Blood Base Excess -4.7 L Arterial Blood Oxygen Saturation 97.1 Vicente Test ACCEPTAB Arterial Blood Gas Puncture Site Right Radial Arterial Blood Carboxyhemoglobin 0.3 Arterial Blood Date Drawn 07/29/2016 11:30:39 AM Arterial Blood Methemoglobin 0.2 Arterial Blood pCO2 (Temp correct) 36.2 Arterial Blood pH (Temp corrected) 7.362 Arterial Blood pO2 (Temp corrected) 105.4 H Blood Gas A-a O2 Differential 66.0 H Blood Gas Actual Respiration Rate 22 Blood Gas Low PEEP Setting 5.0 Blood Gas Modality VENT - CPAP Blood Gas Notified Time 07/29/2016 11:39:24 AM Blood Gas Notified Whom JLD Blood Gas Pressure Support 10 Blood Gas Specimen Source Blood arterial Blood Gas Temperature 37.0 FiO2 30.0 Oxyhemoglobin Percent 96.6 Total Hemoglobin 10.8 L Test 07/29/16 12:07 Bedside Glucose 225 H Medications Medications Current Medications Midazolam HCl 50 ml @ 1 mls/hr TITRATE IV Last administered on 07/27/16 23:52; Admin Dose 4 MLS/HR; Start 07/27/16 at 15:30 Fentanyl (Sublimaze) 100 ml @ 2.5 mls/hr TITRATE IV Last administered on 16:37; Admin Dose 2.5 MLS/HR; Start 07/27/16 at 16:00 Lorazepam (Ativan) 2 mg Q2H PRN IV RASS GOAL -2 TO -3; Start 07/27/16 at 17:30 Morphine Sulfate (morphine) 2 mg Q2H PRN IV PAIN LEVEL 4-7; Start 07/27/16 at 17 :30 Ondansetron HCl (Zofran Inj) 4 mg Q6H PRN IV NAUSEA AND/OR VOMITING; Start 07/27 at 17:30 Nitroglycerin (Nitroglycerin (Sl Tab) 0.4 Mg) 1 tab Q5M PRN SL CHEST PAIN; Start 07/27/16 at 17:30 Acetaminophen (Tylenol Liquid) 650 mg Q6H PRN PO PAIN LEVEL 1-3 OR FEVER; Start 07/27/16 at 17:30 Acetaminophen (Tylenol Tab) 650 mg Q6H PRN PO PAIN LEVEL 1-3 OR FEVER; Start at 17:30 Lorazepam (Ativan) 1 mg Q2H PRN IV ANXIETY; Start 07/27/16 at 17:30 Docusate Sodium (Colace) 100 mg Q12H PRN PO CONSTIPATION; Start 07/27/16 at 17: 30 Bisacodyl (Dulcolax Supp) 10 mg DAILY PRN [place] CONSTIPATION; Start 07/27/16 at 17: 30 Pantoprazole 40 mg 40 mg DAILY@06 IV Last administered on 07/29/16 05:48; Admin Dose 40 MG; Start 07/28/16 at 06:00 Cefepime HCl (Maxipime 2gm/50 ml (Pmx)) 50 ml @ 100 mls/hr Q24H IVPB Last administered on 07/28/16 21:01; Admin Dose 100 MLS/HR; Start 07/27/16 at 22:00 Aspirin (Aspirin) 81 mg DAILY PO Last administered on 07/29/16 08:29; Admin Dose 81 MG; Start 07/28/16 at 09:00 Atorvastatin Calcium (Lipitor) 20 mg HS PO Last administered on 07/28/16 21:00 ; Admin Dose 20 MG; Start 07/27/16 at 21:00 Digoxin (Digoxin) 0.125 mg DAILY@13 PO Last administered on 07/28/16 12:17; Admin Dose 0.125 MG; Start 07/28/16 at 13:00 Sertraline HCl (Zoloft) 100 mg DAILY PO Last administered on 07/29/16 08:29; Admin Dose 100 MG; Start 07/28/16 at 09:00 Miscellaneous Information 1 ea NOTE XX ; Start 07/27/16 at 18:00 Glucose (Glutose) 15 gm Q15M PRN PO DECREASED GLUCOSE; Start 07/27/16 at 18:00 Glucose (Glutose) 22.5 gm Q15M PRN PO DECREASED GLUCOSE; Start 07/27/16 at 18:00 Dextrose (D50w Syringe) 25 ml Q15M PRN IV DECREASED GLUCOSE; Start 07/27/16 at 18:00 Dextrose (D50w Syringe) 50 ml Q15M PRN IV DECREASED GLUCOSE; Start 07/27/16 at 18:00 Glucagon (Glucagen) 1 mg Q15M PRN IM DECREASED GLUCOSE; Start 07/27/16 at 18:00 Glucose (Glutose) 15 gm Q15M PRN BUCCAL DECREASED GLUCOSE; Start 07/27/16 at 18: 00 Metoprolol Tartrate (Lopressor) 25 mg BID PO ; Start 07/27/16 at 21:00 Multivitamins Therapeutic 1 tab 1 tab DAILY PO Last administered on 07/29/16 08:29; Admin Dose 1 TAB; Start 07/28/16 at 09:00 Sodium Chloride 1,000 ml @ 75 mls/hr [id number] IV Last administered on 07/28/16 23:39; Admin Dose 75 MLS/HR; Start 07/28/16 at 00:00 Azithromycin (Zithromax 500mg/ NS (Pmx)) 250 ml @ 250 mls/hr Q24H IVPB Last administered on 07/29/16 09:20; Admin Dose 250 MLS/HR; Start 07/28/16 at 10:00 Insulin Aspart NOVOLOG *MILD* ALGORI... Q4H SC Last administered on 07/29/16 08:28; Admin Dose 4 UNIT; Start 07/28/16 at 12:00 Norepinephrine/ Dextrose (Levophed/D5W) 500 ml @ 1.87 mls/hr TITRATE IV Last administered on 07/28/16 12:18; Admin Dose 1.87 MLS/HR; Start 07/28/16 at 12:00 Montelukast Sodium (Singulair) 10 mg HS NGT Last administered on 07/28/16 21:00 ; Admin Dose 10 MG; Start 07/28/16 at 21:00 Linagliptin (Tradjenta) 5 mg DAILY NGT Last administered on 07/29/16 08:28; Admin Dose 5 MG; Start 07/28/16 at 13:30 Insulin Glargine (Lantus) 10 unit DAILY@20 SC Last administered on 07/28/16t 21: 42; Admin Dose 10 UNIT; Start 07/28/16 at 20:00 Methylprednisolone Sodium Succinate (Solu-Medrol) 80 mg Q6 IV ; Start 07/29/16 at 12:00 Insulin Human NPH (Humulin N) 10 unit Q6 SC ; Start 07/29/16 at 12:00 ERICA GONZALEZ MD Jul 29, 2016 12:28
[2016-07-29] MEDS: SOD CHLORIDE 0.9% 1,000 ML IV SCH (12:32)
[2016-07-29] MEDS: DIGOXIN 0.125 MG TAB PO SCH (13:10)
[2016-07-29] MEDS ORDERED: ALBUTEROL/IPRATROPIUM (NEB) 3 ML AMP HHN STA (13:39)
[2016-07-29] MEDS: ALBUTEROL/IPRATROPIUM (NEB) 3 ML AMP HHN SCH ×2 (14:52→21:27)
--- NOTE | 2016-07-29 17:12 | CONS ---
Date/Time of Note Date/Time of Note DATE: 07/29/16 TIME: 17:08 Assessment/Plan Assessment/Plan Chief Complaint/Hosp Course 75-year-old gentleman who was admitted through the emergency room after having suffered an arrest at home. History is obtained from speaking to 2 of his daughters and review of the charts. Please note he has a pre-existing history of diabetes mellitus type 2. According to the family he had been on glipizide and previously admit had been on metformin which was discontinued in his diabetic control recently had not been good. Most notably in the events leading up to the arrest he had been having a cough with worsening of his underlying breathing difficulties for the last 3-4 weeks. His breathing was getting progressively worse and is using a nebulizer at home. His home medications included prednisone albuterol by hand-held nebulizer anticholinergic medications. He was not on Singulair and he was not on inhaled steroid as a controller medication. He does complain of significant dyspnea and subsequently suffered an arrest during the 1 minute that his daughter was out of the room obtaining her cell phone to call 911. Please see the reports for the events. Please note that the family reports he is not using any over- the-counter cold medications of any type Problems: (1) COPD with asthma Status: Chronic Comment: The patient was successfully extubated improving. He is on full therapeutics and pulmonology is guiding this. He is quite fortunate to have managed to rebound well from this episode (2) Steroid-induced hyperglycemia Status: Acute Comment: While is on high-dose steroids he needs to simultaneously be dosed with NPH insulin. In addition he will need his routine medications. As the steroids come down or are stopped the NPH will need to be modified as well. He had been on metformin as an outpatient this was stopped due to inadequate treatment of single agent. Here will use in combination treatment including a DPP4 drug (3) T2DM (type 2 diabetes mellitus) Status: Acute Comment: His outpatient control was not adequate. For now we will get him under control here. Please note that the the initial request for consideration of insulin drip was put on the back burner Qualifiers: Diabetes mellitus complication status: with unspecified complications Diabetes mellitus prison insulin use: without prison use Qualified Code : E11.8 - Type 2 diabetes mellitus with complication, without long-term current use of insulin (4) Dyslipidemia Status: Acute Comment: He will be on statin therapy Consultation Date/Type/Reason Admit Date/Time Jul 27, 2016 at 17:13 Initial Consult Date 07/28/16 Type of Consultation: Endocrinology Reason for Consultation Diabetes mellitus type 2 on high-dose steroids to treat the COPD exacerbation Referring Provider: ERICA GONZALEZ MD Detailed Summary Respiratory: shortness of breath Exam/Review of Systems Vital Signs Vitals Vital Signs Date Time Temp Pulse Resp B/P Pulse Ox O2 Delivery O2 Flow Rate FiO2 07/29/16 16:00 89 07/29/16 14:58 3.0 07/29/16 14:55 20 98 Nasal Cannula 07/29/16 14:15 118/75 07/29/16 12:00 99.3 07/29/16 11:00 30 Intake and Output 07/28/16 07/28/16 07/29/16 15:00 23:00 07:00 Intake Total 1086.20 ml 1016.027 ml 949.415 ml Output Total 240 ml 260 ml 255 ml Balance 846.20 ml 756.027 ml 694.415 ml Exam Constitutional: alert, oriented Extremities: normal pulses, other (Skin is somewhat dry) Results Result Diagram: 07/29/16 0528 07/29/16 0528 Results 24 hrs Laboratory Tests Test 07/28/16 17:53 07/28/16 17:54 07/28/16 18:00 07/28/16 20:30 Bedside Glucose 254 H 256 H Lactic Acid Level 1.1 1.2 Test 07/28/16 20:37 07/28/16 23:56 07/29/16 03:52 07/29/16 05:28 Bedside Glucose 282 H 253 H 266 H Alanine Aminotransferase (ALT/SGPT) 70 H Albumin 2.9 L Albumin/Globulin Ratio 1.00 Alkaline Phosphatase 99 Anion Gap 12 Aspartate Amino Transf (AST/SGOT) 60 #H Basophils # 0.0 Basophils % 0.1 Blood Urea Nitrogen 18 Calcium Level 8.4 Carbon Dioxide Level 24 Chloride Level 109 Cholesterol Level 97 L Cholesterol/HDL Ratio 2.2 Creatinine 0.99 Direct Bilirubin 0.00 Eosinophils # 0.0 Eosinophils % 0.0 Globulin 2.90 Glucose Level 252 H HDL Cholesterol 43 Hematocrit 29.6 L Hemoglobin 9.7 L Indirect Bilirubin 0.1 LDL Cholesterol, Calculated 36 Lymphocytes # 0.4 L Lymphocytes % 2.2 L Magnesium Level 2.1 Mean Corpuscular Hemoglobin 31.2 Mean Corpuscular Hemoglobin Concent 32.8 Mean Corpuscular Volume 95.2 Mean Platelet Volume 11.0 #H Monocytes # 0.5 Monocytes % 3.2 Neutrophils # 15.2 H Neutrophils % 93.8 H Nucleated Red Blood Cells # 0.0 Nucleated Red Blood Cells % 0.0 Platelet Count 177 Potassium Level 4.1 Red Blood Count 3.11 L Red Cell Distribution Width 14.6 H Sodium Level 141 Total Bilirubin 0.1 L Total Protein 5.8 L Triglycerides Level 92 Troponin I 0.129 *H White Blood Count 16.2 #H Test 07/29/16 05:55 07/29/16 08:14 07/29/16 09:16 07/29/16 11:00 Bedside Glucose 242 H 295 H Creatine Kinase 27 Creatine Kinase Index 6.9 Creatinine Kinase MB (Mass) 1.86 Troponin I 0.122 *H Arterial Blood HCO3 20.1 L Arterial Blood Base Excess -4.7 L Arterial Blood Oxygen Saturation 97.1 Vicente Test ACCEPTAB Arterial Blood Gas Puncture Site Right Radial Arterial Blood Carboxyhemoglobin 0.3 Arterial Blood Date Drawn 07/29/2016 11:30:39 AM Arterial Blood Methemoglobin 0.2 Arterial Blood pCO2 (Temp correct) 36.2 Arterial Blood pH (Temp corrected) 7.362 Arterial Blood pO2 (Temp corrected) 105.4 H Blood Gas A-a O2 Differential 66.0 H Blood Gas Actual Respiration Rate 22 Blood Gas Low PEEP Setting 5.0 Blood Gas Modality VENT - CPAP Blood Gas Notified Time 07/29/2016 11:39:24 AM Blood Gas Notified Whom JLD Blood Gas Pressure Support 10 Blood Gas Specimen Source Blood arterial Blood Gas Temperature 37.0 FiO2 30.0 Oxyhemoglobin Percent 96.6 Total Hemoglobin 10.8 L Test 07/29/16 12:07 07/29/16 16:03 Bedside Glucose 225 H 183 Medications Medications Current Medications Midazolam HCl 50 ml @ 1 mls/hr TITRATE IV Last administered on 07/27/16 23:52; Admin Dose 4 MLS/HR; Start 07/27/16 at 15:30 Fentanyl (Sublimaze) 100 ml @ 2.5 mls/hr TITRATE IV Last administered on 16:37; Admin Dose 2.5 MLS/HR; Start 07/27/16 at 16:00 Lorazepam (Ativan) 2 mg Q2H PRN IV RASS GOAL -2 TO -3; Start 07/27/16 at 17:30 Morphine Sulfate (morphine) 2 mg Q2H PRN IV PAIN LEVEL 4-7; Start 07/27/16 at 17 :30 Ondansetron HCl (Zofran Inj) 4 mg Q6H PRN IV NAUSEA AND/OR VOMITING; Start 07/27 at 17:30 Nitroglycerin (Nitroglycerin (Sl Tab) 0.4 Mg) 1 tab Q5M PRN SL CHEST PAIN; Start 07/27/16 at 17:30 Acetaminophen (Tylenol Liquid) 650 mg Q6H PRN PO PAIN LEVEL 1-3 OR FEVER; Start 07/27/16 at 17:30 Acetaminophen (Tylenol Tab) 650 mg Q6H PRN PO PAIN LEVEL 1-3 OR FEVER; Start at 17:30 Lorazepam (Ativan) 1 mg Q2H PRN IV ANXIETY; Start 07/27/16 at 17:30 Docusate Sodium (Colace) 100 mg Q12H PRN PO CONSTIPATION; Start 07/27/16 at 17: 30 Bisacodyl (Dulcolax Supp) 10 mg DAILY PRN [place] CONSTIPATION; Start 07/27/16 at 17: 30 Pantoprazole 40 mg 40 mg DAILY@06 IV Last administered on 07/29/16 05:48; Admin Dose 40 MG; Start 07/28/16 at 06:00 Cefepime HCl (Maxipime 2gm/50 ml (Pmx)) 50 ml @ 100 mls/hr Q24H IVPB Last administered on 07/28/16 21:01; Admin Dose 100 MLS/HR; Start 07/27/16 at 22:00 Aspirin (Aspirin) 81 mg DAILY PO Last administered on 07/29/16 08:29; Admin Dose 81 MG; Start 07/28/16 at 09:00 Atorvastatin Calcium (Lipitor) 20 mg HS PO Last administered on 07/28/16 21:00 ; Admin Dose 20 MG; Start 07/27/16 at 21:00 Digoxin (Digoxin) 0.125 mg DAILY@13 PO Last administered on 07/29/16 13:10; Admin Dose 0.125 MG; Start 07/28/16 at 13:00 Sertraline HCl (Zoloft) 100 mg DAILY PO Last administered on 07/29/16 08:29; Admin Dose 100 MG; Start 07/28/16 at 09:00 Miscellaneous Information 1 ea NOTE XX ; Start 07/27/16 at 18:00 Glucose (Glutose) 15 gm Q15M PRN PO DECREASED GLUCOSE; Start 07/27/16 at 18:00 Glucose (Glutose) 22.5 gm Q15M PRN PO DECREASED GLUCOSE; Start 07/27/16 at 18:00 Dextrose (D50w Syringe) 25 ml Q15M PRN IV DECREASED GLUCOSE; Start 07/27/16 at 18:00 Dextrose (D50w Syringe) 50 ml Q15M PRN IV DECREASED GLUCOSE; Start 07/27/16 at 18:00 Glucagon (Glucagen) 1 mg Q15M PRN IM DECREASED GLUCOSE; Start 07/27/16 at 18:00 Glucose (Glutose) 15 gm Q15M PRN BUCCAL DECREASED GLUCOSE; Start 07/27/16 at 18: 00 Metoprolol Tartrate (Lopressor) 25 mg BID PO ; Start 07/27/16 at 21:00 Multivitamins Therapeutic 1 tab 1 tab DAILY PO Last administered on 07/29/16 08:29; Admin Dose 1 TAB; Start 07/28/16 at 09:00 Sodium Chloride 1,000 ml @ 75 mls/hr [id number] IV Last administered on 12:32; Admin Dose 75 MLS/HR; Start 07/28/16 at 00:00 Azithromycin (Zithromax 500mg/ NS (Pmx)) 250 ml @ 250 mls/hr Q24H IVPB Last administered on 07/29/16 09:20; Admin Dose 250 MLS/HR; Start 07/28/16 at 10:00 Insulin Aspart NOVOLOG *MILD* ALGORI... Q4H SC Last administered on 07/29/16 16:06; Admin Dose 2 UNIT; Start 07/28/16 at 12:00 Norepinephrine/ Dextrose (Levophed/D5W) 500 ml @ 1.87 mls/hr TITRATE IV Last administered on 07/28/16 12:18; Admin Dose 1.87 MLS/HR; Start 2/9/17 at 12:00 Montelukast Sodium (Singulair) 10 mg HS NGT Last administered on 07/28/16 21:00 ; Admin Dose 10 MG; Start 07/28/16 at 21:00 Linagliptin (Tradjenta) 5 mg DAILY NGT Last administered on 07/29/16 08:28; Admin Dose 5 MG; Start 07/28/16 at 13:30 Insulin Glargine (Lantus) 10 unit DAILY@20 SC Last administered on 07/28/16 21: 42; Admin Dose 10 UNIT; Start 07/28/16 at 20:00 Methylprednisolone Sodium Succinate (Solu-Medrol) 80 mg Q6 IV Last administered on 07/29/16 12:27; Admin Dose 80 MG; Start 07/29/16 at 12:00 Insulin Human NPH (Humulin N) 10 unit Q6 SC Last administered on 07/29/16 12: 30; Admin Dose 10 UNIT; Start 07/29/16 at 12:00 LEONARDA STEELE MD Jul 29, 2016 17:12
--- NOTE | 2016-07-29 17:20 | RADRPT ---
Vent Rate: 68 bpm RR Interval: 0 msec NM Interval: 0 msec QRS Duration: 82 msec QT Interval: 394 msec QTC Interval: 418 msec P-R-T [place]: 0 - 86 - 64 degrees Atrial fibrillation Abnormal ECG Electronically Signed By: Garrick Collado [id number]
[2016-07-29] MEDS: metFORMIN 500 MG TAB PO SCH (17:53)
[2016-07-29] MEDS: INSULIN GLARGINE [LANtus] 3 ML PEN SC SCH (20:59)
[2016-07-29] MEDS: MONTELUKAST 10 MG TAB NGT SCH (21:03)
[2016-07-29] MEDS: ATORVASTATIN 20 MG TAB PO SCH (21:03)
[2016-07-29] MEDS: CEFEPIME 2GM/50 ML (PMX) 50 ML IVPB SCH (21:20)
[2016-07-29] MEDS: SALMETEROL/FLUTICASONE 250/50 INHA INH SCH (21:50)
[2016-07-29] MEDS ORDERED: LORAZEPAM 1 MG TAB PO PRN (23:30)
[2016-07-30] VITALS (58 sets, daily range): BP systolic 69–118; BP diastolic 51–68; PULSE 52–88; RESP 11–27
[2016-07-30] MEDS: ALBUTEROL/IPRATROPIUM (NEB) 3 ML AMP HHN SCH ×4 (01:15→20:09)
[2016-07-30] MEDS: METHYLPREDNISOLONE 125 MG INJ IV SCH ×4 (01:20→17:42)
[2016-07-30] MEDS: NPH, HUMAN INSULIN ISOPHANE 3ML VIAL SC SCH ×4 (01:21→17:45)
[2016-07-30] MEDS: INSULIN ASPART [NOVOLOG] 3 ML PEN SC SCH ×6 (01:27→20:00)
[2016-07-30] MEDS: SOD CHLORIDE 0.9% 1,000 ML IV SCH ×3 (01:49→21:21)
[2016-07-30 05:45] LABS: ADD SCAN DIFF NO
[2016-07-30 05:55] LABS: ABNORMAL IP MESSAGE 1; HEMOGLOBIN 8.5 g/dl (14.0-18.0); LYMPHOCYTES # 0.3 10^3/ul (0.8-2.9); LYMPHOCYTES % 2.8 % (15.0-51.0); MEAN CORPUSCULAR HEMOGLOBIN 30.9 pg (29.0-33.0); MEAN CORPUSCULAR HGB CONC 31.5 g/dl (32.0-37.0); MEAN CORPUSCULAR VOLUME 98.2 fl (82.0-101.0); MEAN PLATELET VOLUME 10.9 fl (7.4-10.4); MONOCYTE # 0.4 10^3/ul (0.3-0.9); NEUTROPHIL # 8.9 10^3/ul (1.6-7.5); NEUTROPHILS % 92.6 % (39.0-77.0); PLATELET COUNT 108 10^3/UL (140-415); RED BLOOD COUNT 2.75 10^6/ul (4.70-6.10); RED CELL DISTRIBUTION WIDTH 15.2 % (11.5-14.5); WHITE BLOOD COUNT 9.6 10^3/ul (4.8-10.8)
[2016-07-30 06:03] LABS: POTASSIUM 4.2 mmol/L (3.5-5.1)
[2016-07-30 06:06] LABS: CREATININE 1.13 mg/dl (0.61-1.24)
[2016-07-30 06:07] LABS: CALCIUM 8.2 mg/dl (8.4-10.2); MAGNESIUM 2.1 mg/dl (1.7-2.5)
[2016-07-30] MEDS: PANTOPRAZOLE 40 MG INJ IV SCH (06:15)
[2016-07-30] MEDS: SALMETEROL/FLUTICASONE 250/50 INHA INH SCH ×2 (08:18→21:10)
[2016-07-30] MEDS: LINAGLIPTIN 5 MG TABLET NGT SCH (08:18)
[2016-07-30] MEDS: metFORMIN 500 MG TAB PO SCH ×2 (08:18→17:42)
[2016-07-30] MEDS: ASPIRIN 81 MG TAB PO SCH (08:18)
[2016-07-30] MEDS: SERTRALINE 100 MG TAB PO SCH (08:18)
[2016-07-30] MEDS: METOPROLOL 25 MG TAB PO SCH ×2 (08:19→21:10)
[2016-07-30] MEDS: MULTIVITAMINS THERAPEUTIC TAB PO SCH (08:20)
[2016-07-30] MEDS: AZITHROMYCIN 500MG/NS (PMX) 250 ML IVPB SCH (10:04)
--- NOTE | 2016-07-30 12:10 | CONS ---
Date/Time of Note Date/Time of Note DATE: 07/30/16 TIME: 12:07 Assessment/Plan Assessment/Plan Problems: (1) Hyperglycemia Status: Resolved (2) Steroid-induced hyperglycemia Status: Resolved (3) T2DM (type 2 diabetes mellitus) Status: Chronic Comment: Doing well w/ marked improvement in glucose control. Cont. current insulin doses, Lantus, Novolog and NPH when medrol given. Qualifiers: Diabetes mellitus complication status: with unspecified complications Diabetes mellitus intermediate designer insulin use: without mcfp use Qualified Code : E11.8 - Type 2 diabetes mellitus with complication, without long-term current use of insulin Consultation Date/Type/Reason Admit Date/Time Jul 27, 2016 at 17:13 Initial Consult Date 07/28/16 Type of Consultation: Endocrinology Reason for Consultation T2DM w/ steroidogenic worsening Referring Provider: ERICA GONZALEZ MD 24 HR Interval Summary Constitutional: improved, no complaints, requiring O2 Detailed Summary Respiratory: shortness of breath (better) Cardiovascular: no complaints Gastrointestinal: no complaints Genitourinary: no complaints Musculoskeletal: no complaints Neurologic: no complaints Exam/Review of Systems Vital Signs Vitals VS - Last 72 Hours, by Label Date Time Temp Pulse Resp B/P Pulse Ox O2 Delivery O2 Flow Rate FiO2 07/30/16 11:30 77 25 93/55 Nasal Cannula 2.0 07/30/16 11:15 67 18 93/60 Nasal Cannula 2.0 07/30/16 11:15 67 18 93/60 Nasal Cannula 2.0 07/30/16 11:00 71 24 93/57 Nasal Cannula 2.0 07/30/16 10:45 73 21 93/59 Nasal Cannula 2.0 07/30/16 10:45 73 21 93/59 Nasal Cannula 2.0 07/30/16 10:30 71 18 99/53 Nasal Cannula 2.0 07/30/16 10:15 73 23 94/53 Nasal Cannula 2.0 07/30/16 10:15 73 23 94/53 Nasal Cannula 2.0 07/30/16 10:00 79 27 97/61 Nasal Cannula 2.0 07/30/16 09:45 76 27 98/59 Nasal Cannula 2.0 07/30/16 09:15 75 24 92/54 Nasal Cannula 2.0 07/30/16 09:00 82 21 83/56 99 Nasal Cannula 2.0 07/30/16 08:45 56 18 96/55 99 Nasal Cannula 2.0 07/30/16 08:30 64 20 95/57 99 Nasal Cannula 2.0 07/30/16 08:26 2.0 07/30/16 08:26 63 20 100 Nasal Cannula 2.0 07/30/16 08:15 55 16 95/53 100 Nasal Cannula 2.0 07/30/16 08:00 98.7 52 16 88/51 99 Nasal Cannula 2.0 07/30/16 08:00 Nasal Cannula 2.0 07/30/16 08:00 59 07/30/16 07:45 64 24 89/54 99 Nasal Cannula 2.0 07/30/16 07:30 57 16 88/56 100 Nasal Cannula 2.0 07/30/16 07:15 62 21 90/56 97 Nasal Cannula 2.0 07/30/16 07:00 68 18 87/56 95 07/30/16 06:45 59 19 92/55 07/30/16 06:30 70 17 87/52 07/30/16 06:15 62 22 93/52 07/30/16 06:00 80 23 108/67 07/30/16 05:45 78 21 69/53 Nasal Cannula 2.0 07/30/16 05:30 66 18 85/54 07/30/16 05:15 65 20 86/55 07/30/16 05:00 63 17 96/59 Nasal Cannula 2.0 07/30/16 04:45 64 15 91/56 07/30/16 04:30 60 19 84/57 07/30/16 04:15 61 17 95/62 07/30/16 04:00 65 07/30/16 04:00 98.6 62 17 96/61 Nasal Cannula 2.0 07/30/16 04:00 Nasal Cannula 2.0 07/30/16 03:45 63 16 91/54 07/30/16 03:30 61 18 99/57 07/30/16 03:15 64 17 95/56 07/30/16 03:00 64 22 94/58 Nasal Cannula 2.0 07/30/16 02:45 68 12 96/54 07/30/16 02:30 68 19 88/58 07/30/16 02:15 73 22 91/56 07/30/16 02:00 71 21 85/52 Nasal Cannula 2.0 07/30/16 01:45 68 20 85/59 99 07/30/16 01:41 98 2.0 28 07/30/16 01:30 63 20 92/62 07/30/16 01:25 71 20 98 2.0 28 07/30/16 01:15 59 14 92/57 07/30/16 01:00 63 11 94/57 100 Nasal Cannula 2.0 07/30/16 00:45 67 20 92/52 99 07/30/16 00:30 63 18 88/58 100 07/30/16 00:15 66 21 99/63 07/30/16 00:00 98.6 68 16 107/68 Nasal Cannula 2.0 07/30/16 00:00 Nasal Cannula 2.0 07/30/16 00:00 65 07/29/16 23:45 63 18 105/68 07/29/16 23:30 64 19 101/67 07/29/16 23:00 71 21 104/65 100 Nasal Cannula 3.0 07/29/16 22:45 68 19 97/67 100 07/29/16 22:30 71 21 103/66 100 07/29/16 22:15 75 18 114/72 07/29/16 22:00 70 18 115/69 100 Nasal Cannula 3.0 07/29/16 21:45 79 20 121/65 100 07/29/16 21:40 98 2.0 28 07/29/16 21:30 68 22 120/69 07/29/16 21:30 78 22 98 Nasal Cannula 2.0 07/29/16 21:29 98 2.0 07/29/16 21:15 74 23 106/58 100 07/29/16 21:00 79 24 122/71 99 Nasal Cannula 3.0 07/29/16 20:45 73 20 119/69 100 07/29/16 20:30 78 19 120/69 100 07/29/16 20:15 81 22 113/73 100 07/29/16 20:00 80 07/29/16 20:00 99.0 77 22 121/64 100 Nasal Cannula 3.0 07/29/16 20:00 Nasal Cannula 3.0 07/29/16 19:45 79 19 125/68 100 07/29/16 19:30 78 15 121/65 07/29/16 19:15 85 17 07/29/16 19:00 83 17 126/74 Nasal Cannula 3.0 07/29/16 18:30 84 18 123/72 Nasal Cannula 07/29/16 18:15 89 23 122/66 100 Nasal Cannula 07/29/16 18:00 82 16 122/65 100 Nasal Cannula 07/29/16 17:45 85 17 124/74 100 Nasal Cannula 07/29/16 17:30 83 15 122/73 100 Nasal Cannula 07/29/16 17:15 75 18 123/71 100 Nasal Cannula 07/29/16 17:00 78 14 113/70 100 Nasal Cannula 07/29/16 16:45 83 17 117/68 100 Nasal Cannula 07/29/16 16:30 81 17 111/72 100 Nasal Cannula 07/29/16 16:15 89 21 111/73 100 Nasal Cannula 07/29/16 16:00 89 07/29/16 16:00 98.4 86 18 117/72 100 Nasal Cannula 07/29/16 15:45 87 20 119/67 99 Nasal Cannula 07/29/16 15:30 87 16 117/73 97 Nasal Cannula 07/29/16 15:15 88 16 114/74 100 Nasal Cannula 07/29/16 15:00 83 20 126/80 100 Nasal Cannula 07/29/16 14:58 3.0 07/29/16 14:55 81 20 98 Nasal Cannula 3.0 07/29/16 14:45 79 18 113/84 98 Nasal Cannula 07/29/16 14:30 82 11 118/82 100 Nasal Cannula 07/29/16 14:15 84 20 118/75 98 Nasal Cannula 07/29/16 14:00 87 25 114/71 99 Nasal Cannula 07/29/16 13:45 90 18 130/77 100 Nasal Cannula 07/29/16 13:40 89 22 98 Nasal Cannula 3.0 07/29/16 13:35 98 07/29/16 13:30 86 23 120/83 100 Nasal Cannula 07/29/16 13:15 92 18 118/81 Mechanical Ventilator 07/29/16 13:00 85 22 119/76 Mechanical Ventilator 07/29/16 12:45 93 22 128/88 100 Mechanical Ventilator 07/29/16 12:30 98 22 132/86 100 Mechanical Ventilator 07/29/16 12:21 71 07/29/16 12:15 94 22 127/85 100 Mechanical Ventilator 07/29/16 12:00 99.3 89 19 119/77 100 Mechanical Ventilator 07/29/16 12:00 88 07/29/16 11:45 88 20 118/66 100 Mechanical Ventilator 07/29/16 11:30 90 22 119/79 100 Mechanical Ventilator 07/29/16 11:15 94 21 124/84 Mechanical Ventilator 07/29/16 11:00 91 19 114/74 97 Mechanical Ventilator 07/29/16 11:00 94 19 98 30 07/29/16 10:45 87 19 111/83 97 Mechanical Ventilator 07/29/16 10:30 89 16 118/76 100 Mechanical Ventilator 07/29/16 10:15 96 25 117/80 97 Mechanical Ventilator 07/29/16 10:00 87 17 113/74 98 Mechanical Ventilator 07/29/16 09:55 92 19 100 30 07/29/16 09:45 93 15 112/78 98 Mechanical Ventilator 07/29/16 09:30 95 16 99/83 95 Mechanical Ventilator 07/29/16 09:15 84 15 119/81 96 Mechanical Ventilator 07/29/16 09:10 92 16 100 30 07/29/16 09:00 81 16 123/79 98 Mechanical Ventilator 07/29/16 08:45 73 16 112/65 98 Mechanical Ventilator 07/29/16 08:30 76 16 101/70 100 Mechanical Ventilator 07/29/16 08:15 70 16 102/64 99 Mechanical Ventilator 07/29/16 08:00 40 07/29/16 08:00 98.9 74 16 102/68 100 Mechanical Ventilator 07/29/16 07:56 77 16 99 30 07/29/16 07:45 74 18 144/99 100 Mechanical Ventilator 07/29/16 07:30 69 14 124/72 99 Mechanical Ventilator 07/29/16 07:15 75 16 108/68 99 Mechanical Ventilator 07/29/16 07:00 66 16 123/80 100 Mechanical Ventilator 07/29/16 05:16 70 16 100 30 07/29/16 05:00 72 16 93/59 99 Mechanical Ventilator 07/29/16 04:45 71 18 99/67 99 07/29/16 04:30 70 16 94/59 100 Mechanical Ventilator 07/29/16 04:15 59 16 100/59 100 07/29/16 04:00 61 07/29/16 04:00 97.0 63 16 105/59 99 Mechanical Ventilator 07/29/16 03:45 66 16 104/63 99 07/29/16 03:35 63 16 100 30 07/29/16 03:30 55 16 112/72 100 Mechanical Ventilator 07/29/16 03:15 62 16 99/70 97 07/29/16 03:00 64 16 96/68 97 Mechanical Ventilator 07/29/16 02:45 71 18 95/70 99 07/29/16 02:30 64 16 113/73 99 Mechanical Ventilator 07/29/16 02:15 64 16 111/68 98 07/29/16 02:00 61 16 90/61 97 Mechanical Ventilator 07/29/16 01:45 67 16 107/70 99 07/29/16 01:30 61 16 100 30 07/29/16 01:30 64 16 102/62 100 Mechanical Ventilator 07/29/16 01:15 65 16 102/73 100 07/29/16 01:00 57 16 100/71 98 Mechanical Ventilator 07/29/16 00:45 61 16 102/68 99 07/29/16 00:30 56 16 110/57 100 Mechanical Ventilator 07/29/16 00:15 60 16 110/64 100 07/29/16 00:00 97.0 58 16 95/62 100 Mechanical Ventilator 07/29/16 00:00 65 07/28/16 23:45 58 16 94/66 100 07/28/16 23:30 58 16 99/72 100 Mechanical Ventilator 07/28/16 23:25 60 16 100 30 07/28/16 23:15 58 16 96/68 100 07/28/16 23:00 67 16 101/74 100 Mechanical Ventilator 07/28/16 22:45 56 16 104/73 100 07/28/16 22:30 57 16 97/65 100 Mechanical Ventilator 07/28/16 22:15 64 16 91/74 100 07/28/16 22:00 68 16 98/59 100 Mechanical Ventilator 07/28/16 21:45 61 16 109/62 100 07/28/16 21:30 58 16 106/65 100 Mechanical Ventilator 07/28/16 21:25 60 16 100 30 07/28/16 21:15 55 16 104/72 100 07/28/16 21:00 53 16 110/71 100 Mechanical Ventilator 07/28/16 20:45 60 16 95/68 100 07/28/16 20:30 63 16 105/70 100 Mechanical Ventilator 07/28/16 20:15 63 16 105/78 100 07/28/16 20:00 97.0 78 15 105/78 100 Mechanical Ventilator 07/28/16 20:00 61 07/28/16 20:00 62 16 100 30 07/28/16 19:45 53 16 106/69 100 07/28/16 19:30 56 16 110/64 100 Mechanical Ventilator 07/28/16 19:15 57 16 111/72 100 07/28/16 19:00 58 16 108/72 100 Mechanical Ventilator 07/28/16 18:45 57 16 115/74 100 Mechanical Ventilator 07/28/16 18:30 52 16 106/66 100 Mechanical Ventilator 07/28/16 18:15 58 16 108/74 100 Mechanical Ventilator 07/28/16 18:05 54 16 100 30 07/28/16 18:00 56 16 105/76 100 Mechanical Ventilator 07/28/16 17:45 57 16 115/72 100 Mechanical Ventilator 07/28/16 17:30 55 16 106/77 100 Mechanical Ventilator 07/28/16 17:15 57 16 118/78 100 Mechanical Ventilator 07/28/16 17:00 60 13 117/64 100 Mechanical Ventilator 07/28/16 16:30 62 16 111/81 100 Mechanical Ventilator 07/28/16 16:15 60 16 111/65 100 Mechanical Ventilator 07/28/16 16:00 58 07/28/16 16:00 97.5 60 15 100/73 100 Mechanical Ventilator 07/28/16 15:55 59 16 100 30 07/28/16 15:45 57 16 104/69 100 Mechanical Ventilator 07/28/16 15:30 63 16 107/64 100 Mechanical Ventilator 07/28/16 15:00 74 20 07/28/16 14:45 60 13 104/62 100 Mechanical Ventilator 07/28/16 14:30 60 10 102/68 100 Mechanical Ventilator 07/28/16 14:15 66 14 96/64 100 Mechanical Ventilator 07/28/16 14:00 64 14 96/69 100 Mechanical Ventilator 07/28/16 13:30 67 13 93/61 100 Mechanical Ventilator 07/28/16 13:15 67 16 112/79 100 Mechanical Ventilator 07/28/16 13:05 72 16 100 30 07/28/16 13:00 63 16 118/75 100 Mechanical Ventilator 07/28/16 12:45 65 16 100/64 100 Mechanical Ventilator 07/28/16 12:25 100 30 07/28/16 12:15 71 16 79/53 100 Mechanical Ventilator 07/28/16 12:00 98.0 68 16 88/63 99 Mechanical Ventilator 07/28/16 12:00 72 07/28/16 11:45 71 11 86/65 100 Mechanical Ventilator 07/28/16 11:30 67 16 84/61 99 Mechanical Ventilator 07/28/16 11:15 68 16 85/58 Mechanical Ventilator 07/28/16 11:00 76 16 88/59 99 Mechanical Ventilator 07/28/16 11:00 85 16 100 40 07/28/16 10:30 106 16 88/62 Mechanical Ventilator 07/28/16 10:15 122 16 103/67 Mechanical Ventilator 07/28/16 10:00 114 16 99/58 Mechanical Ventilator 07/28/16 09:45 99 11 90/52 100 Mechanical Ventilator 07/28/16 09:30 88 13 77/51 100 Mechanical Ventilator 07/28/16 09:00 73 16 79/55 100 Mechanical Ventilator 07/28/16 08:55 69 16 100 40 07/28/16 08:45 75 16 82/63 100 Mechanical Ventilator 07/28/16 08:30 77 16 83/57 99 Mechanical Ventilator 07/28/16 08:00 98.6 74 16 83/56 Mechanical Ventilator 07/28/16 08:00 40 07/28/16 08:00 72 07/28/16 07:35 80 16 100 40 07/28/16 07:30 94 16 97/63 100 Mechanical Ventilator 07/28/16 07:00 86 16 94/60 100 Mechanical Ventilator 07/28/16 06:00 83 16 98/64 100 Mechanical Ventilator 07/28/16 05:10 78 16 100 40 07/28/16 05:00 77 16 97/55 100 Mechanical Ventilator 07/28/16 04:00 74 07/28/16 04:00 98.4 84 16 97/61 100 Mechanical Ventilator 07/28/16 03:15 77 16 100 40 07/28/16 03:00 79 16 92/60 100 Mechanical Ventilator 07/28/16 02:30 94 16 104/61 100 Mechanical Ventilator 07/28/16 02:14 68 07/28/16 02:00 77 16 109/58 100 Mechanical Ventilator 07/28/16 01:30 85 16 115/62 Mechanical Ventilator 07/28/16 01:00 77 16 100 40 07/28/16 01:00 64 16 73/51 100 Mechanical Ventilator 07/28/16 00:30 69 16 97/62 100 Mechanical Ventilator 07/28/16 00:00 98.2 64 16 97/56 Mechanical Ventilator 07/28/16 00:00 74 07/27/16 23:20 63 16 100 40 07/27/16 23:00 68 16 111/71 Mechanical Ventilator 07/27/16 22:00 64 16 86/52 Mechanical Ventilator 07/27/16 21:40 63 16 100 40 07/27/16 21:00 98.4 76 14 104/70 Mechanical Ventilator 07/27/16 20:30 82 14 94/54 Mechanical Ventilator 07/27/16 20:00 40 07/27/16 20:00 87 07/27/16 19:55 75 16 100 40 07/27/16 19:43 96.4 86 14 102/62 100 Mechanical Ventilator 07/27/16 19:27 72 14 100 40 07/27/16 19:00 75 14 103/66 100 Mechanical Ventilator 07/27/16 18:27 40 07/27/16 18:00 75 14 104/62 100 Mechanical Ventilator 07/27/16 17:51 84 14 100 100 07/27/16 17:30 72 14 105/65 100 Mechanical Ventilator 07/27/16 17:00 72 14 110/65 100 Mechanical Ventilator 07/27/16 16:00 86 14 77/62 100 Mechanical Ventilator 07/27/16 15:00 130 19 101/86 100 Mechanical Ventilator 07/27/16 14:46 131 26 155/87 100 Vital Signs Date Time Temp Pulse Resp B/P Pulse Ox O2 Delivery O2 Flow Rate FiO2 07/30/16 11:30 77 25 93/55 Nasal Cannula 2.0 07/30/16 09:00 99 07/30/16 08:00 98.7 07/30/16 01:41 28 Intake and Output 07/29/16 07/29/16 07/30/16 15:00 23:00 07:00 Intake Total 906.16 ml 950 ml 650 ml Output Total 210 ml 220 ml 285 ml Balance 696.16 ml 730 ml 365 ml Exam Constitutional: alert, frail, oriented Psych: nl mood/affect, no complaints Respiratory: clear to auscultation, normal air movement Cardiovascular: nl pulses, regular rate and rhythm, No edema, No murmurs/extra sounds, No rub Gastrointestinal: bowel sounds, nl liver, spleen, non-tender, soft, No mass, No rebound or guarding Musculoskeletal: nl extremities to inspection Extremities: edema (1+ BLE), normal pulses, No clubbing, No cyanosis 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: [place] [employer] II-XII intact, nl mental status, nl speech, nl strength, other (tremulous) Additional Comments Bedside Glucose - 72 Hours Test 07/27/16 21:48 07/28/16 01:13 07/28/16 06:21 07/28/16 09:36 Bedside Glucose 330mg/dL (70-220) H 330mg/dL (70-220) H 272mg/dL (70-220) H 275mg/dL (70-220) H Test 07/28/16 12:10 07/28/16 16:12 07/28/16 17:53 07/28/16 17:54 Bedside Glucose 256mg/dL (70-220) H 223mg/dL (70-220) H 254mg/dL (70-220) H 256mg/dL (70-220) H Test 07/28/16 20:37 07/28/16 23:56 07/29/16 03:52 07/29/16 05:55 Bedside Glucose 282mg/dL (70-220) H 253mg/dL (70-220) H 266mg/dL (70-220) H 242mg/dL (70-220) H Test 07/29/16 08:14 07/29/16 12:07 07/29/16 16:03 07/29/16 17:54 Bedside Glucose 295mg/dL (70-220) H 225mg/dL (70-220) H 183mg/dL (70-220) 196mg/dL (70-220) Test 07/29/16 20:57 07/30/16 01:17 07/30/16 04:54 07/30/16 08:05 Bedside Glucose 182mg/dL (70-220) 153mg/dL (70-220) 145mg/dL (70-220) 116mg/dL (70-220) Results Result Diagram: 07/30/16 0455 07/30/16 0445 Results 24 hrs Laboratory Tests Test 07/29/16 16:03 07/29/16 17:54 07/29/16 20:57 07/30/16 01:17 Bedside Glucose 183 196 182 153 Test 07/30/16 04:45 07/30/16 04:54 07/30/16 04:55 07/30/16 08:05 Anion Gap 11 Blood Urea Nitrogen 22 H Calcium Level 8.2 L Carbon Dioxide Level 24 Chloride Level 109 Creatinine 1.13 Glucose Level 136 # Magnesium Level 2.1 Potassium Level 4.2 Sodium Level 140 Bedside Glucose 145 116 Basophils # 0.0 Basophils % 0.0 Eosinophils # 0.0 Eosinophils % 0.0 Hematocrit 27.0 L Hemoglobin 8.5 L Lymphocytes # 0.3 L Lymphocytes % 2.8 L Mean Corpuscular Hemoglobin 30.9 Mean Corpuscular Hemoglobin Concent 31.5 L Mean Corpuscular Volume 98.2 Mean Platelet Volume 10.9 H Monocytes # 0.4 Monocytes % 4.0 Neutrophils # 8.9 H Neutrophils % 92.6 H Nucleated Red Blood Cells # 0.0 Nucleated Red Blood Cells % 0.0 Platelet Count 108 #L Red Blood Count 2.75 L Red Cell Distribution Width 15.2 H White Blood Count 9.6 # Medications Medications Current Medications Lorazepam (Ativan) 2 mg Q2H PRN IV RASS GOAL -2 TO -3; Start 07/27/16 at 17:30 Morphine Sulfate (morphine) 2 mg Q2H PRN IV PAIN LEVEL 4-7; Start 07/27/16 at 17 :30 Ondansetron HCl (Zofran Inj) 4 mg Q6H PRN IV NAUSEA AND/OR VOMITING; Start 07/27 at 17:30 Nitroglycerin (Nitroglycerin (Sl Tab) 0.4 Mg) 1 tab Q5M PRN SL CHEST PAIN; Start 07/27/16 at 17:30 Acetaminophen (Tylenol Liquid) 650 mg Q6H PRN PO PAIN LEVEL 1-3 OR FEVER; Start 07/27/16 at 17:30 Acetaminophen (Tylenol Tab) 650 mg Q6H PRN PO PAIN LEVEL 1-3 OR FEVER; Start at 17:30 Lorazepam (Ativan) 1 mg Q2H PRN IV ANXIETY; Start 07/27/16 at 17:30 Docusate Sodium (Colace) 100 mg Q12H PRN PO CONSTIPATION; Start 07/27/16 at 17: 30 Bisacodyl (Dulcolax Supp) 10 mg DAILY PRN ND CONSTIPATION; Start 07/27/16 at 17: 30 Pantoprazole 40 mg 40 mg DAILY@06 IV Last administered on 07/30/16 06:15; Admin Dose 40 MG; Start 07/28/16 at 06:00 Cefepime HCl (Maxipime 2gm/50 ml (Pmx)) 50 ml @ 100 mls/hr Q24H IVPB Last administered on 07/29/16 21:20; Admin Dose 100 MLS/HR; Start 07/27/16 at 22:00 Aspirin (Aspirin) 81 mg DAILY PO Last administered on 07/30/16 08:18; Admin Dose 81 MG; Start 07/28/16 at 09:00 Atorvastatin Calcium (Lipitor) 20 mg HS PO Last administered on 07/29/16 21:03 ; Admin Dose 20 MG; Start 07/27/16 at 21:00 Digoxin (Digoxin) 0.125 mg DAILY@13 PO Last administered on 07/29/16 13:10; Admin Dose 0.125 MG; Start 07/28/16 at 13:00 Sertraline HCl (Zoloft) 100 mg DAILY PO Last administered on 07/30/16 08:18; Admin Dose 100 MG; Start 07/28/16 at 09:00 Miscellaneous Information 1 ea NOTE XX ; Start 07/27/16 at 18:00 Glucose (Glutose) 15 gm Q15M PRN PO DECREASED GLUCOSE; Start 07/27/16 at 18:00 Glucose (Glutose) 22.5 gm Q15M PRN PO DECREASED GLUCOSE; Start 07/27/16 at 18:00 Dextrose (D50w Syringe) 25 ml Q15M PRN IV DECREASED GLUCOSE; Start 07/27/16 at 18:00 Dextrose (D50w Syringe) 50 ml Q15M PRN IV DECREASED GLUCOSE; Start 07/27/16 at 18:00 Glucagon (Glucagen) 1 mg Q15M PRN IM DECREASED GLUCOSE; Start 07/27/16 at 18:00 Glucose (Glutose) 15 gm Q15M PRN BUCCAL DECREASED GLUCOSE; Start 07/27/16 at 18: 00 Metoprolol Tartrate (Lopressor) 25 mg BID PO Last administered on 07/29/16 21: 03; Admin Dose 25 MG; Start 07/27/16 at 21:00 Multivitamins Therapeutic 1 tab 1 tab DAILY PO Last administered on 07/30/16 08:20; Admin Dose 1 TAB; Start 07/28/16 at 09:00 Sodium Chloride 1,000 ml @ 75 mls/hr [id number] IV Last administered on 12:32; Admin Dose 75 MLS/HR; Start 07/28/16 at 00:00 Azithromycin (Zithromax 500mg/ NS (Pmx)) 250 ml @ 250 mls/hr Q24H IVPB Last administered on 07/30/16 10:04; Admin Dose 250 MLS/HR; Start 07/28/16 at 10:00 Insulin Aspart NOVOLOG *MILD* ALGORI... Q4H SC Last administered on 07/30/16 04:57; Admin Dose 1 UNIT; Start 07/28/16 at 12:00 Norepinephrine/ Dextrose (Levophed/D5W) 500 ml @ 1.87 mls/hr TITRATE IV Last administered on 07/28/16 12:18; Admin Dose 1.87 MLS/HR; Start 07/28/16 at 12:00 Montelukast Sodium (Singulair) 10 mg HS NGT Last administered on 07/29/16 21: 03; Admin Dose 10 MG; Start 07/28/16 at 21:00 Linagliptin (Tradjenta) 5 mg DAILY NGT Last administered on 07/30/16 08:18; Admin Dose 5 MG; Start 07/28/16 at 13:30 Methylprednisolone Sodium Succinate (Solu-Medrol) 80 mg Q6 IV Last administered on 07/30/16 06:15; Admin Dose 80 MG; Start 07/29/16 at 12:00 Insulin Human NPH (Humulin N) 10 unit Q6 SC Last administered on 07/30/16 06: 54; Admin Dose 10 UNIT; Start 07/29/16 at 12:00 Insulin Glargine (Lantus) 15 unit DAILY@20 SC Last administered on 07/29/16 20 :59; Admin Dose 15 UNIT; Start 07/29/16 at 20:00 Salmeterol Xinafoate/ Fluticasone (Advair 250/50 Diskus) 1 inh BID INH Last administered on 07/30/16 08:18; Admin Dose 1 INH; Start 07/29/16 at 21:00 Lorazepam (Ativan) 1 mg Q6H PRN PO ANXIETY Last administered on 07/29/16 23:41 ; Admin Dose 1 MG; Start 07/29/16 at 23:30 FRANCY YOUNGBLOOD MD Jul 30, 2016 12:10
--- NOTE | 2016-07-30 13:03 | CONS ---
Date/Time of Note Date/Time of Note DATE: 07/30/16 TIME: 13:01 Assessment/Plan Assessment/Plan Chief Complaint/Hosp Course MPRESSION: 1. Cardiac arrest. Assess etiology. 2. Positive troponin/non-ST elevation myocardial infarction. Assess significance. Assess for true acute coronary syndrome.-now downtrending/NL EF by echo 3. Abnormal electrocardiogram after arrest, with ST depressions. 4. Tachyarrhythmia. 5. History of mitral valve replacement.-bioprosthetic by echo 6. Hypotension, borderline.-improved/off presssors 7. Diabetes mellitus with hyperglycemia. 8. Renal failure, improving. 9. Coagulopathy-on going 10. Anemia. 11. Thrombocytopenia. 12.CHF-diastolic acute on likely chronic Recc: -Tele monitoring -Continue digoxin/statin/asa -Follow volume status/BP closely -Continue abx's/steroids/bronchodilators -BB as tolerated only -Check INR Problems: Consultation Date/Type/Reason Admit Date/Time Jul 27, 2016 at 17:13 Initial Consult Date 07/28/16 Type of Consultation: cardiology Reason for Consultation cardiac arrest Referring Provider: ERICA GONZALEZ MD Exam/Review of Systems Vital Signs Vitals Vital Signs Date Time Temp Pulse Resp B/P Pulse Ox O2 Delivery O2 Flow Rate FiO2 07/30/16 11:30 77 25 93/55 Nasal Cannula 2.0 07/30/16 09:00 99 07/30/16 08:00 98.7 07/30/16 01:41 28 Intake and Output 07/29/16 07/29/16 07/30/16 15:00 23:00 07:00 Intake Total 906.16 ml 950 ml 650 ml Output Total 210 ml 220 ml 285 ml Balance 696.16 ml 730 ml 365 ml Exam Review of Systems: CONSTITUTIONAL: No fevers, chills. PULMONARY: No sob CARDIOVASCULAR: No chest pain/palpitations GASTROINTESTINAL: No nausea/vomiting. GENITOURINARY: No hematuria/dysuria. MUSCULOSKELETAL: No myagias/arthalgias. PSYCHIATRIC: The patient denies depression. NEUROLOGIC: No weakness Constitutional: alert Psych: no complaints Head: normocephalic ENMT: mucosa pink and moist Neck: jvd (9 cm water), supple Respiratory: clear to auscultation Cardiovascular: regular rate and rhythm Gastrointestinal: non-tender, soft Musculoskeletal: muscle tone (normal) Extremities: edema (none) 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: other (No focal deficits) Results Result Diagram: 07/30/16 0455 07/30/16 0445 Results 24 hrs Laboratory Tests Test 07/29/16 16:03 07/29/16 17:54 07/29/16 20:57 07/30/16 01:17 Bedside Glucose 183 196 182 153 Test 07/30/16 04:45 07/30/16 04:54 07/30/16 04:55 07/30/16 08:05 Anion Gap 11 Blood Urea Nitrogen 22 H Calcium Level 8.2 L Carbon Dioxide Level 24 Chloride Level 109 Creatinine 1.13 Glucose Level 136 # Magnesium Level 2.1 Potassium Level 4.2 Sodium Level 140 Bedside Glucose 145 116 Basophils # 0.0 Basophils % 0.0 Eosinophils # 0.0 Eosinophils % 0.0 Hematocrit 27.0 L Hemoglobin 8.5 L Lymphocytes # 0.3 L Lymphocytes % 2.8 L Mean Corpuscular Hemoglobin 30.9 Mean Corpuscular Hemoglobin Concent 31.5 L Mean Corpuscular Volume 98.2 Mean Platelet Volume 10.9 H Monocytes # 0.4 Monocytes % 4.0 Neutrophils # 8.9 H Neutrophils % 92.6 H Nucleated Red Blood Cells # 0.0 Nucleated Red Blood Cells % 0.0 Platelet Count 108 #L Red Blood Count 2.75 L Red Cell Distribution Width 15.2 H White Blood Count 9.6 # Test 07/30/16 12:56 Bedside Glucose 122 Medications Medications Current Medications Lorazepam (Ativan) 2 mg Q2H PRN IV RASS GOAL -2 TO -3; Start 07/27/16 at 17:30 Morphine Sulfate (morphine) 2 mg Q2H PRN IV PAIN LEVEL 4-7; Start 07/27/16 at 17 :30 Ondansetron HCl (Zofran Inj) 4 mg Q6H PRN IV NAUSEA AND/OR VOMITING; Start 07/27 at 17:30 Nitroglycerin (Nitroglycerin (Sl Tab) 0.4 Mg) 1 tab Q5M PRN SL CHEST PAIN; Start 07/27/16 at 17:30 Acetaminophen (Tylenol Liquid) 650 mg Q6H PRN PO PAIN LEVEL 1-3 OR FEVER; Start 07/27/16 at 17:30 Acetaminophen (Tylenol Tab) 650 mg Q6H PRN PO PAIN LEVEL 1-3 OR FEVER; Start at 17:30 Lorazepam (Ativan) 1 mg Q2H PRN IV ANXIETY; Start 07/27/16 at 17:30 Docusate Sodium (Colace) 100 mg Q12H PRN PO CONSTIPATION; Start 07/27/16 at 17: 30 Bisacodyl (Dulcolax Supp) 10 mg DAILY PRN [place] CONSTIPATION; Start 07/27/16 at 17: 30 Pantoprazole 40 mg 40 mg DAILY@06 IV Last administered on 07/30/16 06:15; Admin Dose 40 MG; Start 07/28/16 at 06:00 Cefepime HCl (Maxipime 2gm/50 ml (Pmx)) 50 ml @ 100 mls/hr Q24H IVPB Last administered on 07/29/16 21:20; Admin Dose 100 MLS/HR; Start 07/27/16 at 22:00 Aspirin (Aspirin) 81 mg DAILY PO Last administered on 07/30/16 08:18; Admin Dose 81 MG; Start 07/28/16 at 09:00 Atorvastatin Calcium (Lipitor) 20 mg HS PO Last administered on 07/29/16 21:03 ; Admin Dose 20 MG; Start 07/27/16 at 21:00 Digoxin (Digoxin) 0.125 mg DAILY@13 PO Last administered on 07/29/16 13:10; Admin Dose 0.125 MG; Start 07/28/16 at 13:00 Sertraline HCl (Zoloft) 100 mg DAILY PO Last administered on 07/30/16 08:18; Admin Dose 100 MG; Start 07/28/16 at 09:00 Miscellaneous Information 1 ea NOTE XX ; Start 07/27/16 at 18:00 Glucose (Glutose) 15 gm Q15M PRN PO DECREASED GLUCOSE; Start 07/27/16 at 18:00 Glucose (Glutose) 22.5 gm Q15M PRN PO DECREASED GLUCOSE; Start 07/27/16 at 18:00 Dextrose (D50w Syringe) 25 ml Q15M PRN IV DECREASED GLUCOSE; Start 07/27/16 at 18:00 Dextrose (D50w Syringe) 50 ml Q15M PRN IV DECREASED GLUCOSE; Start 07/27/16 at 18:00 Glucagon (Glucagen) 1 mg Q15M PRN IM DECREASED GLUCOSE; Start 07/27/16 at 18:00 Glucose (Glutose) 15 gm Q15M PRN BUCCAL DECREASED GLUCOSE; Start 07/27/16 at 18: 00 Metoprolol Tartrate (Lopressor) 25 mg BID PO Last administered on 07/29/16 21: 03; Admin Dose 25 MG; Start 07/27/16 at 21:00 Multivitamins Therapeutic 1 tab 1 tab DAILY PO Last administered on 07/30/16 08:20; Admin Dose 1 TAB; Start 07/28/16 at 09:00 Sodium Chloride 1,000 ml @ 75 mls/hr [id number] IV Last administered on 12:32; Admin Dose 75 MLS/HR; Start 07/28/16 at 00:00 Azithromycin (Zithromax 500mg/ NS (Pmx)) 250 ml @ 250 mls/hr Q24H IVPB Last administered on 07/30/16 10:04; Admin Dose 250 MLS/HR; Start 07/28/16 at 10:00 Insulin Aspart NOVOLOG *MILD* ALGORI... Q4H SC Last administered on 07/30/16 04:57; Admin Dose 1 UNIT; Start 07/28/16 at 12:00 Norepinephrine/ Dextrose (Levophed/D5W) 500 ml @ 1.87 mls/hr TITRATE IV Last administered on 07/28/16 12:18; Admin Dose 1.87 MLS/HR; Start 07/28/16 at 12:00 Montelukast Sodium (Singulair) 10 mg HS NGT Last administered on 07/29/16 21: 03; Admin Dose 10 MG; Start 07/28/16 at 21:00 Linagliptin (Tradjenta) 5 mg DAILY NGT Last administered on 07/30/16 08:18; Admin Dose 5 MG; Start 07/28/16 at 13:30 Methylprednisolone Sodium Succinate (Solu-Medrol) 80 mg Q6 IV Last administered on 07/30/16 06:15; Admin Dose 80 MG; Start 07/29/16 at 12:00 Insulin Human NPH (Humulin N) 10 unit Q6 SC Last administered on 07/30/16 06: 54; Admin Dose 10 UNIT; Start 07/29/16 at 12:00 Insulin Glargine (Lantus) 15 unit DAILY@20 SC Last administered on 07/29/16 20 :59; Admin Dose 15 UNIT; Start 07/29/16 at 20:00 Salmeterol Xinafoate/ Fluticasone (Advair 250/50 Diskus) 1 inh BID INH Last administered on 07/30/16 08:18; Admin Dose 1 INH; Start 07/29/16 at 21:00 Lorazepam (Ativan) 1 mg Q6H PRN PO ANXIETY Last administered on 07/29/16 23:41 ; Admin Dose 1 MG; Start 07/29/16 at 23:30 ESTEFANI BORREGO Jul 30, 2016 13:03
--- NOTE | 2016-07-30 13:14 | PN ---
DATE: 07/30/2016 INTERNAL MEDICINE FOLLOWUP SUBJECTIVE: Chart reviewed. Events noted. Patient was successfully extubated, currently sitting i n chair comfortably on 2 liters O2 nasal cannula, saturating 98%. Denies any chest pain or shortnes s of breath. PHYSICAL EXAMINATION: VITAL SIGNS: Blood pressure 93/55, pulse 77, respirations 25, temperature afebrile. HEENT: Pupils are equal and reactive to light. NECK: Supple, no JVD noted, no cervical adenopathy, no carotid bruits heard. LUNGS: Fair breath sounds bilaterally, decreased breath sounds at the bases. CARDIOVASCULAR: S1, S2 normal. ABDOMEN: Soft, nontender. No organomegaly or masses noted. EXTREMITIES: No clubbing or cyanosis noted. NEUROLOGICAL: Awake. IMPRESSION: 1. Status post cardiopulmonary arrest, status post extubation and currently stable. 2. Status post extubation, stable. 3. Chronic obstructive pulmonary disease exacerbation. 4. Atrial fibrillation. 5. Bioprosthetic mitral valve replacement in 2013. 6. Diabetes mellitus type 2. 7. Dyslipidemia. 8. Systemic inflammatory response syndrome. RECOMMENDATIONS: 1. Continue current treatment. 2. Consultants noted. 3. Discontinue Rodriguez. 4. Okay to transfer to telemetry. 5. Above discussed with staff. Dictated By: REBEKA VARGAS MD, MA/SUDHAKAR Conf#: [id number] DID#: [id number]
[2016-07-30] MEDS: DIGOXIN 0.125 MG TAB PO SCH (13:17)
--- NOTE | 2016-07-30 15:51 | CONS ---
Date/Time of Note Date/Time of Note DATE: 07/30/16 TIME: 15:50 Consult Date/Type/Reason Admit Date/Time Jul 27, 2016 at 17:13 Initial Consult Date 07/28/16 Type of Consultation: Pulm Ordering Provider: ERICA GONZALEZ MD Subjective No events. s/p extubation yesterday. Objective Vital Signs Date Time Temp Pulse Resp B/P Pulse Ox O2 Delivery O2 Flow Rate FiO2 07/30/16 15:00 81 19 96/56 93 Nasal Cannula 2.0 07/30/16 12:00 98.1 07/30/16 01:41 28 Intake and Output 07/29/16 07/29/16 07/30/16 15:00 23:00 07:00 Intake Total 906.16 ml 950 ml 650 ml Output Total 210 ml 220 ml 285 ml Balance 696.16 ml 730 ml 365 ml HEENT: Neck supple; no JVD; no LAD CVS: RRR, S1 and S2 CHEST: Clear ABD: Soft, NT, + BS EXT: No c/c/e Results/Medications Result Diagram: 07/30/16 0455 07/30/16 0445 Results 24 hrs Laboratory Tests Test 07/29/16 16:03 07/29/16 17:54 07/29/16 20:57 07/30/16 01:17 Bedside Glucose 183 196 182 153 Test 07/30/16 04:45 07/30/16 04:54 07/30/16 04:55 07/30/16 08:05 Anion Gap 11 Blood Urea Nitrogen 22 H Calcium Level 8.2 L Carbon Dioxide Level 24 Chloride Level 109 Creatinine 1.13 Glucose Level 136 # Magnesium Level 2.1 Potassium Level 4.2 Sodium Level 140 Bedside Glucose 145 116 Basophils # 0.0 Basophils % 0.0 Eosinophils # 0.0 Eosinophils % 0.0 Hematocrit 27.0 L Hemoglobin 8.5 L Lymphocytes # 0.3 L Lymphocytes % 2.8 L Mean Corpuscular Hemoglobin 30.9 Mean Corpuscular Hemoglobin Concent 31.5 L Mean Corpuscular Volume 98.2 Mean Platelet Volume 10.9 H Monocytes # 0.4 Monocytes % 4.0 Neutrophils # 8.9 H Neutrophils % 92.6 H Nucleated Red Blood Cells # 0.0 Nucleated Red Blood Cells % 0.0 Platelet Count 108 #L Red Blood Count 2.75 L Red Cell Distribution Width 15.2 H White Blood Count 9.6 # Test 07/30/16 12:56 Bedside Glucose 122 Medications Current Medications Lorazepam (Ativan) 2 mg Q2H PRN IV RASS GOAL -2 TO -3; Start 07/27/16 at 17:30 Morphine Sulfate (morphine) 2 mg Q2H PRN IV PAIN LEVEL 4-7; Start 07/27/16 at 17 :30 Ondansetron HCl (Zofran Inj) 4 mg Q6H PRN IV NAUSEA AND/OR VOMITING; Start 07/27 at 17:30 Nitroglycerin (Nitroglycerin (Sl Tab) 0.4 Mg) 1 tab Q5M PRN SL CHEST PAIN; Start 07/27/16 at 17:30 Acetaminophen (Tylenol Liquid) 650 mg Q6H PRN PO PAIN LEVEL 1-3 OR FEVER; Start 07/27/16 at 17:30 Acetaminophen (Tylenol Tab) 650 mg Q6H PRN PO PAIN LEVEL 1-3 OR FEVER; Start at 17:30 Lorazepam (Ativan) 1 mg Q2H PRN IV ANXIETY; Start 07/27/16 at 17:30 Docusate Sodium (Colace) 100 mg Q12H PRN PO CONSTIPATION; Start 07/27/16 at 17: 30 Bisacodyl (Dulcolax Supp) 10 mg DAILY PRN [place] CONSTIPATION; Start 07/27/16 at 17: 30 Pantoprazole 40 mg 40 mg DAILY@06 IV Last administered on 07/30/16 06:15; Admin Dose 40 MG; Start 07/28/16 at 06:00 Cefepime HCl (Maxipime 2gm/50 ml (Pmx)) 50 ml @ 100 mls/hr Q24H IVPB Last administered on 07/29/16 21:20; Admin Dose 100 MLS/HR; Start 07/27/16 at 22:00 Aspirin (Aspirin) 81 mg DAILY PO Last administered on 07/30/16 08:18; Admin Dose 81 MG; Start 07/28/16 at 09:00 Atorvastatin Calcium (Lipitor) 20 mg HS PO Last administered on 07/29/16 21:03 ; Admin Dose 20 MG; Start 07/27/16 at 21:00 Digoxin (Digoxin) 0.125 mg DAILY@13 PO Last administered on 07/30/16 13:17; Admin Dose 0.125 MG; Start 07/28/16 at 13:00 Sertraline HCl (Zoloft) 100 mg DAILY PO Last administered on 07/30/16 08:18; Admin Dose 100 MG; Start 07/28/16 at 09:00 Miscellaneous Information 1 ea NOTE XX ; Start 07/27/16 at 18:00 Glucose (Glutose) 15 gm Q15M PRN PO DECREASED GLUCOSE; Start 07/27/16 at 18:00 Glucose (Glutose) 22.5 gm Q15M PRN PO DECREASED GLUCOSE; Start 07/27/16 at 18:00 Dextrose (D50w Syringe) 25 ml Q15M PRN IV DECREASED GLUCOSE; Start 07/27/16 at 18:00 Dextrose (D50w Syringe) 50 ml Q15M PRN IV DECREASED GLUCOSE; Start 07/27/16 at 18:00 Glucagon (Glucagen) 1 mg Q15M PRN IM DECREASED GLUCOSE; Start 07/27/16 at 18:00 Glucose (Glutose) 15 gm Q15M PRN BUCCAL DECREASED GLUCOSE; Start 07/27/16 at 18: 00 Metoprolol Tartrate (Lopressor) 25 mg BID PO Last administered on 07/29/16 21: 03; Admin Dose 25 MG; Start 07/27/16 at 21:00 Multivitamins Therapeutic 1 tab 1 tab DAILY PO Last administered on 07/30/16 08:20; Admin Dose 1 TAB; Start 07/28/16 at 09:00 Sodium Chloride 1,000 ml @ 75 mls/hr [id number] IV Last administered on 14:43; Admin Dose 75 MLS/HR; Start 07/28/16 at 00:00 Azithromycin (Zithromax 500mg/ NS (Pmx)) 250 ml @ 250 mls/hr Q24H IVPB Last administered on 07/30/16 10:04; Admin Dose 250 MLS/HR; Start 07/28/16 at 10:00 Insulin Aspart NOVOLOG *MILD* ALGORI... Q4H SC Last administered on 07/30/16 04:57; Admin Dose 1 UNIT; Start 07/28/16 at 12:00 Norepinephrine/ Dextrose (Levophed/D5W) 500 ml @ 1.87 mls/hr TITRATE IV Last administered on 07/28/16 12:18; Admin Dose 1.87 MLS/HR; Start 07/28/16 at 12:00 Montelukast Sodium (Singulair) 10 mg HS NGT Last administered on 07/29/16 21: 03; Admin Dose 10 MG; Start 07/28/16 at 21:00 Linagliptin (Tradjenta) 5 mg DAILY NGT Last administered on 07/30/16 08:18; Admin Dose 5 MG; Start 07/28/16 at 13:30 Methylprednisolone Sodium Succinate (Solu-Medrol) 80 mg Q6 IV Last administered on 07/30/16 12:59; Admin Dose 80 MG; Start 07/29/16 at 12:00 Insulin Human NPH (Humulin N) 10 unit Q6 SC Last administered on 07/30/16 13: 02; Admin Dose 10 UNIT; Start 07/29/16 at 12:00 Insulin Glargine (Lantus) 15 unit DAILY@20 SC Last administered on 07/29/16 20 :59; Admin Dose 15 UNIT; Start 07/29/16 at 20:00 Salmeterol Xinafoate/ Fluticasone (Advair 250/50 Diskus) 1 inh BID INH Last administered on 07/30/16 08:18; Admin Dose 1 INH; Start 07/29/16 at 21:00 Lorazepam (Ativan) 1 mg Q6H PRN PO ANXIETY Last administered on 07/29/16 23:41 ; Admin Dose 1 MG; Start 07/29/16 at 23:30 Assessment/Plan Additional Assessment/Plan IMPRESSION: 1. Status post cardiopulmonary arrest, status post extubation and currently stable. 2. Chronic obstructive pulmonary disease exacerbation. 3. Atrial fibrillation. 4. Bioprosthetic mitral valve replacement in 2013. 5. Diabetes mellitus type 2. 6. Dyslipidemia. 7. Anemia RECOMMENDATIONS: 1. Mobilize OOB 2. De-escalate abx 3. LOTUS Reyes MD Jul 30, 2016 15:51
[2016-07-30] MEDS: INSULIN GLARGINE [LANtus] 3 ML PEN SC SCH (20:32)
[2016-07-30] MEDS: ATORVASTATIN 20 MG TAB PO SCH (21:09)
[2016-07-30] MEDS: CEFEPIME 2GM/50 ML (PMX) 50 ML IVPB SCH (21:10)
[2016-07-30] MEDS: MONTELUKAST 10 MG TAB NGT SCH (21:10)
[2016-07-31] VITALS (12 sets, daily range): BP systolic 115–134; BP diastolic 60–79; PULSE 66–87; RESP 15–20
[2016-07-31] MEDS: METHYLPREDNISOLONE 125 MG INJ IV SCH ×5 (00:50→23:56)
[2016-07-31] MEDS: NPH, HUMAN INSULIN ISOPHANE 3ML VIAL SC SCH ×5 (00:56→23:58)
[2016-07-31] MEDS: INSULIN ASPART [NOVOLOG] 3 ML PEN SC SCH ×7 (00:57→23:59)
[2016-07-31] MEDS: ALBUTEROL/IPRATROPIUM (NEB) 3 ML AMP HHN SCH ×4 (02:12→19:44)
[2016-07-31] MEDS: PANTOPRAZOLE 40 MG INJ IV SCH (06:50)
--- NOTE | 2016-07-31 08:07 | PN ---
DATE: 07/29/2016 SUBJECTIVE: The patient is awake and alert, follows commands. The patient's eldest daughter is at bedside, very pleasant family member. OBJECTIVE: VITAL SIGNS: Blood pressure of 93/55, pulse 77 and regular, respirations of 25, temperature of 98.7 degrees, 99% saturations on 2 liters. NEUROLOGICAL: He is oriented x3 with nodding yes/no. Cranial nerves are grossly intact. Motor and sensory findings grossly within normal limits. Oculocephalic intact. There are no focal neurologi jose findings on examination. ASSESSMENT AND PLAN: Status post cardiac arrest. Apparently no neurological damage grossly on exam ination. The patient is to be extubated on 07/30/[address] seems to be improving at this time. I will follow. Dictated By: JANELL KIM MD, LP/SUDHAKAR Conf#: [id number] DID#: [id number]
[2016-07-31 08:29] LABS: INR 1.28; PROTIME 16.1 Sec (12.2-14.2); PT RATIO 1.3
[2016-07-31] MEDS: AZITHROMYCIN 500MG/NS (PMX) 250 ML IVPB SCH (09:08)
[2016-07-31] MEDS: LINAGLIPTIN 5 MG TABLET NGT SCH (09:09)
[2016-07-31] MEDS: MULTIVITAMINS THERAPEUTIC TAB PO SCH (09:09)
[2016-07-31] MEDS: SOD CHLORIDE 0.9% 1,000 ML IV SCH (09:09)
[2016-07-31] MEDS: METOPROLOL 25 MG TAB PO SCH ×2 (09:09→20:55)
[2016-07-31] MEDS: ASPIRIN 81 MG TAB PO SCH (09:09)
[2016-07-31] MEDS: SERTRALINE 100 MG TAB PO SCH (09:09)
[2016-07-31] MEDS: metFORMIN 500 MG TAB PO SCH ×2 (09:09→17:43)
[2016-07-31] MEDS: SALMETEROL/FLUTICASONE 250/50 INHA INH SCH ×2 (09:11→20:54)
--- NOTE | 2016-07-31 11:08 | PN ---
DATE: 07/31/2016 INTERNAL MEDICINE PULMONARY CRITICAL CARE PROGRESS NOTE SUBJECTIVE: Chart reviewed. The patient has been moved out of ICU. Currently on 2 L O2 nasal darren jeny, saturating 97%. The patient is comfortable, in no distress. OBJECTIVE: VITAL SIGNS: Blood pressure 134/77, pulse 81, respirations 19, temperature 98.7. HEENT: Pupils are equal and reactive to light. NECK: Supple, no JVD noted, no cervical adenopathy noted, no carotid bruits heard. LUNGS: Fair breath sounds bilaterally. CARDIOVASCULAR: S1, S2 normal. ABDOMEN: Soft and nontender, no organomegaly or masses noted. EXTREMITIES: No clubbing or cyanosis noted. NEUROLOGICAL: Awake. LABORATORY DATA: No new labs. IMPRESSION: 1. Status post cardiopulmonary arrest. 2. Stable post-extubation. 3. Chronic obstructive pulmonary disease exacerbation. 4. Atrial fibrillation. 5. Bioprosthetic mitral valve replacement. 6. Diabetes mellitus type 2. 7. Dyslipidemia. 8. Anemia. RECOMMENDATIONS: 1. Continue current treatment. 2. Physical therapy. 3. Palliative care noted. 4. Discussed with staff. Dictated By: REBEKA VARGAS MD, MA/SUDHAKAR Conf#: [id number] DID#: [id number]
--- NOTE | 2016-07-31 11:39 | CONS ---
Date/Time of Note Date/Time of Note DATE: 07/31/16 TIME: 11:37 Assessment/Plan Assessment/Plan Problems: (1) T2DM (type 2 diabetes mellitus) Status: Chronic Comment: Ongoing excellent glycemic control. Cont. current insulin doses. 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 Qualified Code : E11.8 - Type 2 diabetes mellitus with complication, without long-term current use of insulin Consultation Date/Type/Reason Admit Date/Time Jul 27, 2016 at 17:13 Initial Consult Date 07/28/16 Type of Consultation: Endocrinology Reason for Consultation T2DM management Referring Provider: ERICA GONZALEZ MD 24 HR Interval Summary Constitutional: no complaints Detailed Summary Respiratory: no complaints Cardiovascular: no complaints Gastrointestinal: no complaints Genitourinary: no complaints Musculoskeletal: no complaints Neurologic: no complaints Exam/Review of Systems Vital Signs Vitals VS - Last 72 Hours, by Label Date Time Temp Pulse Resp B/P Pulse Ox O2 Delivery O2 Flow Rate FiO2 07/31/16 08:29 73 07/31/16 07:54 98.7 81 19 134/77 95 07/31/16 07:40 88 18 97 Nasal Cannula 2.0 07/31/16 07:38 Nasal Cannula 2.0 07/31/16 04:00 97.5 80 15 115/64 97 07/31/16 02:14 75 19 95 Nasal Cannula 2.0 07/31/16 02:14 2.0 07/31/16 00:07 87 07/31/16 00:00 98.2 83 15 117/60 98 07/30/16 20:11 2.0 07/30/16 20:11 79 22 94 Nasal Cannula 2.0 07/30/16 20:11 88 07/30/16 20:00 98.1 90 18 107/60 98 07/30/16 20:00 Nasal Cannula 2.0 07/30/16 17:27 79 07/30/16 17:00 Nasal Cannula 2.0 07/30/16 17:00 98.6 70 18 118/59 100 Nasal Cannula 2.0 07/30/16 16:00 98.5 86 21 107/55 99 Nasal Cannula 2.0 07/30/16 16:00 83 07/30/16 15:00 81 19 96/56 93 Nasal Cannula 2.0 07/30/16 14:30 74 19 101/59 100 Nasal Cannula 2.0 07/30/16 14:23 71 22 100 Nasal Cannula 2.0 07/30/16 14:00 80 20 98/64 100 Nasal Cannula 2.0 07/30/16 13:30 81 17 104/54 100 Nasal Cannula 2.0 07/30/16 13:00 72 21 90/58 100 Nasal Cannula 2.0 07/30/16 12:30 73 21 92/60 100 Nasal Cannula 2.0 07/30/16 12:00 73 07/30/16 12:00 98.1 66 18 106/53 100 Nasal Cannula 2.0 07/30/16 11:30 77 25 93/55 Nasal Cannula 2.0 07/30/16 11:15 67 18 93/60 Nasal Cannula 2.0 07/30/16 11:15 67 18 93/60 Nasal Cannula 2.0 07/30/16 11:00 71 24 93/57 Nasal Cannula 2.0 07/30/16 10:45 73 21 93/59 Nasal Cannula 2.0 07/30/16 10:45 73 21 93/59 Nasal Cannula 2.0 07/30/16 10:30 71 18 99/53 Nasal Cannula 2.0 07/30/16 10:15 73 23 94/53 Nasal Cannula 2.0 07/30/16 10:15 73 23 94/53 Nasal Cannula 2.0 07/30/16 10:00 79 27 97/61 Nasal Cannula 2.0 07/30/16 09:45 76 27 98/59 Nasal Cannula 2.0 07/30/16 09:15 75 24 92/54 Nasal Cannula 2.0 07/30/16 09:00 82 21 83/56 99 Nasal Cannula 2.0 07/30/16 08:45 56 18 96/55 99 Nasal Cannula 2.0 07/30/16 08:30 64 20 95/57 99 Nasal Cannula 2.0 07/30/16 08:26 2.0 07/30/16 08:26 63 20 100 Nasal Cannula 2.0 07/30/16 08:15 55 16 95/53 100 Nasal Cannula 2.0 07/30/16 08:00 98.7 52 16 88/51 99 Nasal Cannula 2.0 07/30/16 08:00 Nasal Cannula 2.0 07/30/16 08:00 59 07/30/16 07:45 64 24 89/54 99 Nasal Cannula 2.0 07/30/16 07:30 57 16 88/56 100 Nasal Cannula 2.0 07/30/16 07:15 62 21 90/56 97 Nasal Cannula 2.0 07/30/16 07:00 68 18 87/56 95 07/30/16 06:45 59 19 92/55 07/30/16 06:30 70 17 87/52 07/30/16 06:15 62 22 93/52 07/30/16 06:00 80 23 108/67 07/30/16 05:45 78 21 69/53 Nasal Cannula 2.0 07/30/16 05:30 66 18 85/54 07/30/16 05:15 65 20 86/55 07/30/16 05:00 63 17 96/59 Nasal Cannula 2.0 07/30/16 04:45 64 15 91/56 07/30/16 04:30 60 19 84/57 07/30/16 04:15 61 17 95/62 07/30/16 04:00 65 07/30/16 04:00 98.6 62 17 96/61 Nasal Cannula 2.0 07/30/16 04:00 Nasal Cannula 2.0 07/30/16 03:45 63 16 91/54 07/30/16 03:30 61 18 99/57 07/30/16 03:15 64 17 95/56 07/30/16 03:00 64 22 94/58 Nasal Cannula 2.0 07/30/16 02:45 68 12 96/54 07/30/16 02:30 68 19 88/58 07/30/16 02:15 73 22 91/56 07/30/16 02:00 71 21 85/52 Nasal Cannula 2.0 07/30/16 01:45 68 20 85/59 99 07/30/16 01:41 98 2.0 28 07/30/16 01:30 63 20 92/62 07/30/16 01:25 71 20 98 2.0 28 07/30/16 01:15 59 14 92/57 07/30/16 01:00 63 11 94/57 100 Nasal Cannula 2.0 07/30/16 00:45 67 20 92/52 99 07/30/16 00:30 63 18 88/58 100 07/30/16 00:15 66 21 99/63 07/30/16 00:00 98.6 68 16 107/68 Nasal Cannula 2.0 07/30/16 00:00 Nasal Cannula 2.0 07/30/16 00:00 65 07/29/16 23:45 63 18 105/68 07/29/16 23:30 64 19 101/67 07/29/16 23:00 71 21 104/65 100 Nasal Cannula 3.0 07/29/16 22:45 68 19 97/67 100 07/29/16 22:30 71 21 103/66 100 07/29/16 22:15 75 18 114/72 07/29/16 22:00 70 18 115/69 100 Nasal Cannula 3.0 07/29/16 21:45 79 20 121/65 100 07/29/16 21:40 98 2.0 28 07/29/16 21:30 68 22 120/69 07/29/16 21:30 78 22 98 Nasal Cannula 2.0 07/29/16 21:29 98 2.0 07/29/16 21:15 74 23 106/58 100 07/29/16 21:00 79 24 122/71 99 Nasal Cannula 3.0 07/29/16 20:45 73 20 119/69 100 07/29/16 20:30 78 19 120/69 100 07/29/16 20:15 81 22 113/73 100 07/29/16 20:00 80 07/29/16 20:00 99.0 77 22 121/64 100 Nasal Cannula 3.0 07/29/16 20:00 Nasal Cannula 3.0 07/29/16 19:45 79 19 125/68 100 07/29/16 19:30 78 15 121/65 07/29/16 19:15 85 17 07/29/16 19:00 83 17 126/74 Nasal Cannula 3.0 07/29/16 18:30 84 18 123/72 Nasal Cannula 07/29/16 18:15 89 23 122/66 100 Nasal Cannula 07/29/16 18:00 82 16 122/65 100 Nasal Cannula 07/29/16 17:45 85 17 124/74 100 Nasal Cannula 07/29/16 17:30 83 15 122/73 100 Nasal Cannula 07/29/16 17:15 75 18 123/71 100 Nasal Cannula 07/29/16 17:00 78 14 113/70 100 Nasal Cannula 07/29/16 16:45 83 17 117/68 100 Nasal Cannula 07/29/16 16:30 81 17 111/72 100 Nasal Cannula 07/29/16 16:15 89 21 111/73 100 Nasal Cannula 07/29/16 16:00 89 07/29/16 16:00 98.4 86 18 117/72 100 Nasal Cannula 07/29/16 15:45 87 20 119/67 99 Nasal Cannula 07/29/16 15:30 87 16 117/73 97 Nasal Cannula 07/29/16 15:15 88 16 114/74 100 Nasal Cannula 07/29/16 15:00 83 20 126/80 100 Nasal Cannula 07/29/16 14:58 3.0 07/29/16 14:55 81 20 98 Nasal Cannula 3.0 07/29/16 14:45 79 18 113/84 98 Nasal Cannula 07/29/16 14:30 82 11 118/82 100 Nasal Cannula 07/29/16 14:15 84 20 118/75 98 Nasal Cannula 07/29/16 14:00 87 25 114/71 99 Nasal Cannula 07/29/16 13:45 90 18 130/77 100 Nasal Cannula 07/29/16 13:40 89 22 98 Nasal Cannula 3.0 07/29/16 13:35 98 07/29/16 13:30 86 23 120/83 100 Nasal Cannula 07/29/16 13:15 92 18 118/81 Mechanical Ventilator 07/29/16 13:00 85 22 119/76 Mechanical Ventilator 07/29/16 12:45 93 22 128/88 100 Mechanical Ventilator 07/29/16 12:30 98 22 132/86 100 Mechanical Ventilator 07/29/16 12:21 71 07/29/16 12:15 94 22 127/85 100 Mechanical Ventilator 07/29/16 12:00 99.3 89 19 119/77 100 Mechanical Ventilator 07/29/16 12:00 88 07/29/16 11:45 88 20 118/66 100 Mechanical Ventilator 07/29/16 11:30 90 22 119/79 100 Mechanical Ventilator 07/29/16 11:15 94 21 124/84 Mechanical Ventilator 07/29/16 11:00 91 19 114/74 97 Mechanical Ventilator 07/29/16 11:00 94 19 98 30 07/29/16 10:45 87 19 111/83 97 Mechanical Ventilator 07/29/16 10:30 89 16 118/76 100 Mechanical Ventilator 07/29/16 10:15 96 25 117/80 97 Mechanical Ventilator 07/29/16 10:00 87 17 113/74 98 Mechanical Ventilator 07/29/16 09:55 92 19 100 30 07/29/16 09:45 93 15 112/78 98 Mechanical Ventilator 07/29/16 09:30 95 16 99/83 95 Mechanical Ventilator 07/29/16 09:15 84 15 119/81 96 Mechanical Ventilator 07/29/16 09:10 92 16 100 30 07/29/16 09:00 81 16 123/79 98 Mechanical Ventilator 07/29/16 08:45 73 16 112/65 98 Mechanical Ventilator 07/29/16 08:30 76 16 101/70 100 Mechanical Ventilator 07/29/16 08:15 70 16 102/64 99 Mechanical Ventilator 07/29/16 08:00 40 07/29/16 08:00 98.9 74 16 102/68 100 Mechanical Ventilator 07/29/16 07:56 77 16 99 30 07/29/16 07:45 74 18 144/99 100 Mechanical Ventilator 07/29/16 07:30 69 14 124/72 99 Mechanical Ventilator 07/29/16 07:15 75 16 108/68 99 Mechanical Ventilator 07/29/16 07:00 66 16 123/80 100 Mechanical Ventilator 07/29/16 05:16 70 16 100 30 07/29/16 05:00 72 16 93/59 99 Mechanical Ventilator 07/29/16 04:45 71 18 99/67 99 07/29/16 04:30 70 16 94/59 100 Mechanical Ventilator 07/29/16 04:15 59 16 100/59 100 07/29/16 04:00 61 07/29/16 04:00 97.0 63 16 105/59 99 Mechanical Ventilator 07/29/16 03:45 66 16 104/63 99 07/29/16 03:35 63 16 100 30 07/29/16 03:30 55 16 112/72 100 Mechanical Ventilator 07/29/16 03:15 62 16 99/70 97 07/29/16 03:00 64 16 96/68 97 Mechanical Ventilator 07/29/16 02:45 71 18 95/70 99 07/29/16 02:30 64 16 113/73 99 Mechanical Ventilator 07/29/16 02:15 64 16 111/68 98 07/29/16 02:00 61 16 90/61 97 Mechanical Ventilator 07/29/16 01:45 67 16 107/70 99 07/29/16 01:30 61 16 100 30 07/29/16 01:30 64 16 102/62 100 Mechanical Ventilator 07/29/16 01:15 65 16 102/73 100 07/29/16 01:00 57 16 100/71 98 Mechanical Ventilator 07/29/16 00:45 61 16 102/68 99 07/29/16 00:30 56 16 110/57 100 Mechanical Ventilator 07/29/16 00:15 60 16 110/64 100 07/29/16 00:00 97.0 58 16 95/62 100 Mechanical Ventilator 07/29/16 00:00 65 07/28/16 23:45 58 16 94/66 100 07/28/16 23:30 58 16 99/72 100 Mechanical Ventilator 07/28/16 23:25 60 16 100 30 07/28/16 23:15 58 16 96/68 100 07/28/16 23:00 67 16 101/74 100 Mechanical Ventilator 07/28/16 22:45 56 16 104/73 100 07/28/16 22:30 57 16 97/65 100 Mechanical Ventilator 07/28/16 22:15 64 16 91/74 100 07/28/16 22:00 68 16 98/59 100 Mechanical Ventilator 07/28/16 21:45 61 16 109/62 100 07/28/16 21:30 58 16 106/65 100 Mechanical Ventilator 07/28/16 21:25 60 16 100 30 07/28/16 21:15 55 16 104/72 100 07/28/16 21:00 53 16 110/71 100 Mechanical Ventilator 07/28/16 20:45 60 16 95/68 100 07/28/16 20:30 63 16 105/70 100 Mechanical Ventilator 07/28/16 20:15 63 16 105/78 100 07/28/16 20:00 97.0 78 15 105/78 100 Mechanical Ventilator 07/28/16 20:00 61 07/28/16 20:00 62 16 100 30 07/28/16 19:45 53 16 106/69 100 07/28/16 19:30 56 16 110/64 100 Mechanical Ventilator 07/28/16 19:15 57 16 111/72 100 07/28/16 19:00 58 16 108/72 100 Mechanical Ventilator 07/28/16 18:45 57 16 115/74 100 Mechanical Ventilator 07/28/16 18:30 52 16 106/66 100 Mechanical Ventilator 07/28/16 18:15 58 16 108/74 100 Mechanical Ventilator 07/28/16 18:05 54 16 100 30 07/28/16 18:00 56 16 105/76 100 Mechanical Ventilator 07/28/16 17:45 57 16 115/72 100 Mechanical Ventilator 07/28/16 17:30 55 16 106/77 100 Mechanical Ventilator 07/28/16 17:15 57 16 118/78 100 Mechanical Ventilator 07/28/16 17:00 60 13 117/64 100 Mechanical Ventilator 07/28/16 16:30 62 16 111/81 100 Mechanical Ventilator 07/28/16 16:15 60 16 111/65 100 Mechanical Ventilator 07/28/16 16:00 58 07/28/16 16:00 97.5 60 15 100/73 100 Mechanical Ventilator 07/28/16 15:55 59 16 100 30 07/28/16 15:45 57 16 104/69 100 Mechanical Ventilator 07/28/16 15:30 63 16 107/64 100 Mechanical Ventilator 07/28/16 15:00 74 20 07/28/16 14:45 60 13 104/62 100 Mechanical Ventilator 07/28/16 14:30 60 10 102/68 100 Mechanical Ventilator 07/28/16 14:15 66 14 96/64 100 Mechanical Ventilator 07/28/16 14:00 64 14 96/69 100 Mechanical Ventilator 07/28/16 13:30 67 13 93/61 100 Mechanical Ventilator 07/28/16 13:15 67 16 112/79 100 Mechanical Ventilator 07/28/16 13:05 72 16 100 30 07/28/16 13:00 63 16 118/75 100 Mechanical Ventilator 07/28/16 12:45 65 16 100/64 100 Mechanical Ventilator 07/28/16 12:25 100 30 07/28/16 12:15 71 16 79/53 100 Mechanical Ventilator 07/28/16 12:00 98.0 68 16 88/63 99 Mechanical Ventilator 07/28/16 12:00 72 07/28/16 11:45 71 11 86/65 100 Mechanical Ventilator Vital Signs Date Time Temp Pulse Resp B/P Pulse Ox O2 Delivery O2 Flow Rate FiO2 07/31/16 08:29 73 07/31/16 07:54 98.7 19 134/77 95 07/31/16 07:40 Nasal Cannula 2.0 07/30/16 01:41 28 Intake and Output 07/30/16 07/30/16 07/31/16 14:59 22:59 06:59 Intake Total 1480 ml 325 ml 300 ml Output Total 170 ml 300 ml Balance 1310 ml 325 ml 0 ml Exam Constitutional: alert, oriented, well developed Psych: nl mood/affect, no complaints Respiratory: labored breathing Cardiovascular: edema (1+ BLE), nl pulses, regular rate and rhythm, No murmurs/extra sounds, No rub Gastrointestinal: bowel sounds, nl liver, spleen, non-tender, soft, No mass, No rebound or guarding Musculoskeletal: nl extremities to inspection Extremities: normal pulses, No clubbing, No cyanosis, No edema 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: 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 SURGEON II-XII 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, nl mental status, nl speech, nl strength Additional Comments Bedside Glucose - 72 Hours Test 07/28/16 12:10 07/28/16 16:12 07/28/16 17:53 07/28/16 17:54 Bedside Glucose 256mg/dL (70-220) H 223mg/dL (70-220) H 254mg/dL (70-220) H 256mg/dL (70-220) H Test 07/28/16 20:37 07/28/16 23:56 07/29/16 03:52 07/29/16 05:55 Bedside Glucose 282mg/dL (70-220) H 253mg/dL (70-220) H 266mg/dL (70-220) H 242mg/dL (70-220) H Test 07/29/16 08:14 07/29/16 12:07 07/29/16 16:03 07/29/16 17:54 Bedside Glucose 295mg/dL (70-220) H 225mg/dL (70-220) H 183mg/dL (70-220) 196mg/dL (70-220) Test 07/29/16 20:57 07/30/16 01:17 07/30/16 04:54 07/30/16 08:05 Bedside Glucose 182mg/dL (70-220) 153mg/dL (70-220) 145mg/dL (70-220) 116mg/dL (70-220) Test 07/30/16 12:56 07/30/16 16:08 07/30/16 20:16 07/31/16 00:16 Bedside Glucose 122mg/dL (70-220) 139mg/dL (70-220) 119mg/dL (70-220) 154mg/dL (70-220) Test 07/31/16 04:28 07/31/16 08:28 Bedside Glucose 121mg/dL (70-220) 103mg/dL (70-220) Results Result Diagram: 07/30/16 0455 07/30/16 0445 Results 24 hrs Laboratory Tests Test 07/30/16 12:56 07/30/16 16:08 07/30/16 20:16 07/31/16 00:16 Bedside Glucose 122 139 119 154 Test 07/31/16 04:28 07/31/16 07:14 07/31/16 08:28 Bedside Glucose 121 103 INR International Normalized Ratio 1.28 Prothrombin Time 16.1 #H Prothrombin Time Ratio 1.3 Medications Medications Current Medications Lorazepam (Ativan) 2 mg Q2H PRN IV RASS GOAL -2 TO -3; Start 07/27/16 at 17:30 Morphine Sulfate (morphine) 2 mg Q2H PRN IV PAIN LEVEL 4-7; Start 07/27/16 at 17 :30 Ondansetron HCl (Zofran Inj) 4 mg Q6H PRN IV NAUSEA AND/OR VOMITING; Start 07/27 at 17:30 Nitroglycerin (Nitroglycerin (Sl Tab) 0.4 Mg) 1 tab Q5M PRN SL CHEST PAIN; Start 07/27/16 at 17:30 Acetaminophen (Tylenol Liquid) 650 mg Q6H PRN PO PAIN LEVEL 1-3 OR FEVER; Start 07/27/16 at 17:30 Acetaminophen (Tylenol Tab) 650 mg Q6H PRN PO PAIN LEVEL 1-3 OR FEVER; Start at 17:30 Lorazepam (Ativan) 1 mg Q2H PRN IV ANXIETY; Start 07/27/16 at 17:30 Docusate Sodium (Colace) 100 mg Q12H PRN PO CONSTIPATION; Start 07/27/16 at 17: 30 Bisacodyl (Dulcolax Supp) 10 mg DAILY PRN [place] CONSTIPATION; Start 07/27/16 at 17: 30 Pantoprazole 40 mg 40 mg DAILY@06 IV Last administered on 07/31/16 06:50; Admin Dose 40 MG; Start 07/28/16 at 06:00 Cefepime HCl (Maxipime 2gm/50 ml (Pmx)) 50 ml @ 100 mls/hr Q24H IVPB Last administered on 07/30/16 21:10; Admin Dose 100 MLS/HR; Start 07/27/16 at 22:00 Aspirin (Aspirin) 81 mg DAILY PO Last administered on 07/31/16 09:09; Admin Dose 81 MG; Start 07/28/16 at 09:00 Atorvastatin Calcium (Lipitor) 20 mg HS PO Last administered on 07/30/16 21:09 ; Admin Dose 20 MG; Start 07/27/16 at 21:00 Digoxin (Digoxin) 0.125 mg DAILY@13 PO Last administered on 07/30/16 13:17; Admin Dose 0.125 MG; Start 07/28/16 at 13:00 Sertraline HCl (Zoloft) 100 mg DAILY PO Last administered on 07/31/16 09:09; Admin Dose 100 MG; Start 07/28/16 at 09:00 Miscellaneous Information 1 ea NOTE XX ; Start 07/27/16 at 18:00 Glucose (Glutose) 15 gm Q15M PRN PO DECREASED GLUCOSE; Start 07/27/16 at 18:00 Glucose (Glutose) 22.5 gm Q15M PRN PO DECREASED GLUCOSE; Start 07/27/16 at 18:00 Dextrose (D50w Syringe) 25 ml Q15M PRN IV DECREASED GLUCOSE; Start 07/27/16 at 18:00 Dextrose (D50w Syringe) 50 ml Q15M PRN IV DECREASED GLUCOSE; Start 07/27/16 at 18:00 Glucagon (Glucagen) 1 mg Q15M PRN IM DECREASED GLUCOSE; Start 07/27/16 at 18:00 Glucose (Glutose) 15 gm Q15M PRN BUCCAL DECREASED GLUCOSE; Start 07/27/16 at 18: 00 Metoprolol Tartrate (Lopressor) 25 mg BID PO Last administered on 07/31/16 09: 09; Admin Dose 25 MG; Start 07/27/16 at 21:00 Multivitamins Therapeutic 1 tab 1 tab DAILY PO Last administered on 07/31/16 09:09; Admin Dose 1 TAB; Start 07/28/16 at 09:00 Sodium Chloride 1,000 ml @ 75 mls/hr [id number] IV Last administered on 09:09; Admin Dose 75 MLS/HR; Start 07/28/16 at 00:00 Azithromycin (Zithromax 500mg/ NS (Pmx)) 250 ml @ 250 mls/hr Q24H IVPB Last administered on 07/31/16 09:08; Admin Dose 250 MLS/HR; Start 07/28/16 at 10:00 Insulin Aspart NOVOLOG *MILD* ALGORI... Q4H SC Last administered on 07/31/16 00:57; Admin Dose 1 UNIT; Start 07/28/16 at 12:00 Norepinephrine/ Dextrose (Levophed/D5W) 500 ml @ 1.87 mls/hr TITRATE IV Last administered on 07/28/16 12:18; Admin Dose 1.87 MLS/HR; Start 07/28/16 at 12:00; Status Future Hold Montelukast Sodium (Singulair) 10 mg HS NGT Last administered on 07/30/16 21: 10; Admin Dose 10 MG; Start 07/28/16 at 21:00 Linagliptin (Tradjenta) 5 mg DAILY NGT Last administered on 07/31/16 09:09; Admin Dose 5 MG; Start 07/28/16 at 13:30 Methylprednisolone Sodium Succinate (Solu-Medrol) 80 mg Q6 IV Last administered on 07/31/16 06:50; Admin Dose 80 MG; Start 07/29/16 at 12:00 Insulin Human NPH (Humulin N) 10 unit Q6 SC Last administered on 07/31/16 06: 51; Admin Dose 10 UNIT; Start 07/29/16 at 12:00 Insulin Glargine (Lantus) 15 unit DAILY@20 SC Last administered on 07/30/16 20 :32; Admin Dose 15 UNIT; Start 07/29/16 at 20:00 Salmeterol Xinafoate/ Fluticasone (Advair 250/50 Diskus) 1 inh BID INH Last administered on 07/31/16 09:11; Admin Dose 1 INH; Start 07/29/16 at 21:00 Lorazepam (Ativan) 1 mg Q6H PRN PO ANXIETY Last administered on 07/29/16t 23:41 ; Admin Dose 1 MG; Start 07/29/16 at 23:30 Influenza Virus Vaccine (Fluzone) 0.5 ml ONCE ONCE IM* ; Start 08/01/16 at 09:00 ; Stop 08/01/16 at 09:01 FRANCY YOUNGBLOOD MD Jul 31, 2016 11:39
[2016-07-31] MEDS: DIGOXIN 0.125 MG TAB PO SCH (12:43)
--- NOTE | 2016-07-31 14:54 | CONS ---
Date/Time of Note Date/Time of Note DATE: 07/31/16 TIME: 14:49 Assessment/Plan Assessment/Plan Chief Complaint/Hosp Course MPRESSION: 1. Cardiac arrest. Assess etiology. 2. Positive troponin/non-ST elevation myocardial infarction. Assess significance. Assess for true acute coronary syndrome.-now downtrending/NL EF by echo 3. Abnormal electrocardiogram after arrest, with ST depressions. 4. Tachyarrhythmia. 5. History of mitral valve replacement.-bioprosthetic by echo 6. Hypotension, borderline.-improved/off presssors 7. Diabetes mellitus with hyperglycemia. 8. Renal failure, improving. 9. Coagulopathy-improved 10. Anemia. 11. Thrombocytopenia-improving 12.CHF-diastolic acute on likely chronic Recc: -Tele monitoring -Continue digoxin/statin/asa -Follow volume status/BP closely -Continue abx's/steroids/bronchodilators -BB as tolerated only -[facility] this week Problems: Consultation Date/Type/Reason Admit Date/Time Jul 27, 2016 at 17:13 Initial Consult Date 07/28/16 Type of Consultation: Cardiology Reason for Consultation cardiac arrest Referring Provider: ERICA GONZALEZ MD Exam/Review of Systems Vital Signs Vitals Vital Signs Date Time Temp Pulse Resp B/P Pulse Ox O2 Delivery O2 Flow Rate FiO2 07/31/16 13:57 87 20 96 Nasal Cannula 2.0 07/31/16 11:39 98.0 122/79 07/30/16 01:41 28 Intake and Output 07/30/16 07/30/16 07/31/16 15:00 23:00 07:00 Intake Total 1405 ml 250 ml 300 ml Output Total 120 ml 300 ml Balance 1285 ml 250 ml 0 ml Exam Review of Systems: CONSTITUTIONAL: No fevers, chills. PULMONARY: Mild sob CARDIOVASCULAR: No chest pain/palpitations GASTROINTESTINAL: No nausea/vomiting. GENITOURINARY: No hematuria/dysuria. MUSCULOSKELETAL: No myagias/arthalgias. PSYCHIATRIC: The patient denies depression. NEUROLOGIC: No weakness Constitutional: alert, oriented Psych: no complaints ENMT: mucosa pink and moist Neck: jvd (9 cm water), supple Cardiovascular: regular rate and rhythm Gastrointestinal: non-tender Musculoskeletal: muscle tone (normal) Extremities: pitting pedal edema (B) 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: lethargic Results Result Diagram: 07/30/16 0455 07/30/16 0445 Results 24 hrs Laboratory Tests Test 07/30/16 16:08 07/30/16 20:16 07/31/16 00:16 07/31/16 04:28 Bedside Glucose 139 119 154 121 Test 07/31/16 07:14 07/31/16 08:28 07/31/16 12:41 INR International Normalized Ratio 1.28 Prothrombin Time 16.1 #H Prothrombin Time Ratio 1.3 Bedside Glucose 103 121 Medications Medications Current Medications Lorazepam (Ativan) 2 mg Q2H PRN IV RASS GOAL -2 TO -3; Start 07/27/16 at 17:30 Morphine Sulfate (morphine) 2 mg Q2H PRN IV PAIN LEVEL 4-7; Start 07/27/16 at 17 :30 Ondansetron HCl (Zofran Inj) 4 mg Q6H PRN IV NAUSEA AND/OR VOMITING; Start 07/27 at 17:30 Nitroglycerin (Nitroglycerin (Sl Tab) 0.4 Mg) 1 tab Q5M PRN SL CHEST PAIN; Start 07/27/16 at 17:30 Acetaminophen (Tylenol Liquid) 650 mg Q6H PRN PO PAIN LEVEL 1-3 OR FEVER; Start 07/27/16 at 17:30 Acetaminophen (Tylenol Tab) 650 mg Q6H PRN PO PAIN LEVEL 1-3 OR FEVER; Start at 17:30 Lorazepam (Ativan) 1 mg Q2H PRN IV ANXIETY; Start 07/27/16 at 17:30 Docusate Sodium (Colace) 100 mg Q12H PRN PO CONSTIPATION; Start 07/27/16 at 17: 30 Bisacodyl (Dulcolax Supp) 10 mg DAILY PRN [place] CONSTIPATION; Start 07/27/16 at 17: 30 Pantoprazole 40 mg 40 mg DAILY@06 IV Last administered on 07/31/16 06:50; Admin Dose 40 MG; Start 07/28/16 at 06:00 Cefepime HCl (Maxipime 2gm/50 ml (Pmx)) 50 ml @ 100 mls/hr Q24H IVPB Last administered on 07/30/16 21:10; Admin Dose 100 MLS/HR; Start 07/27/16 at 22:00 Aspirin (Aspirin) 81 mg DAILY PO Last administered on 07/31/16 09:09; Admin Dose 81 MG; Start 07/28/16 at 09:00 Atorvastatin Calcium (Lipitor) 20 mg HS PO Last administered on 07/30/16 21:09 ; Admin Dose 20 MG; Start 07/27/16 at 21:00 Digoxin (Digoxin) 0.125 mg DAILY@13 PO Last administered on 07/31/16 12:43; Admin Dose 0.125 MG; Start 07/28/16 at 13:00 Sertraline HCl (Zoloft) 100 mg DAILY PO Last administered on 07/31/16 09:09; Admin Dose 100 MG; Start 07/28/16 at 09:00 Miscellaneous Information 1 ea NOTE XX ; Start 07/27/16 at 18:00 Glucose (Glutose) 15 gm Q15M PRN PO DECREASED GLUCOSE; Start 07/27/16 at 18:00 Glucose (Glutose) 22.5 gm Q15M PRN PO DECREASED GLUCOSE; Start 07/27/16 at 18:00 Dextrose (D50w Syringe) 25 ml Q15M PRN IV DECREASED GLUCOSE; Start 07/27/16 at 18:00 Dextrose (D50w Syringe) 50 ml Q15M PRN IV DECREASED GLUCOSE; Start 07/27/16 at 18:00 Glucagon (Glucagen) 1 mg Q15M PRN IM DECREASED GLUCOSE; Start 07/27/16 at 18:00 Glucose (Glutose) 15 gm Q15M PRN BUCCAL DECREASED GLUCOSE; Start 07/27/16 at 18: 00 Metoprolol Tartrate (Lopressor) 25 mg BID PO Last administered on 07/31/16 09: 09; Admin Dose 25 MG; Start 07/27/16 at 21:00 Multivitamins Therapeutic 1 tab 1 tab DAILY PO Last administered on 07/31/16 09:09; Admin Dose 1 TAB; Start 07/28/16 at 09:00 Sodium Chloride 1,000 ml @ 75 mls/hr [id number] IV Last administered on 09:09; Admin Dose 75 MLS/HR; Start 07/28/16 at 00:00 Azithromycin (Zithromax 500mg/ NS (Pmx)) 250 ml @ 250 mls/hr Q24H IVPB Last administered on 07/31/16 09:08; Admin Dose 250 MLS/HR; Start 07/28/16 at 10:00 Insulin Aspart NOVOLOG *MILD* ALGORI... Q4H SC Last administered on 07/31/16 00:57; Admin Dose 1 UNIT; Start 07/28/16 at 12:00 Norepinephrine/ Dextrose (Levophed/D5W) 500 ml @ 1.87 mls/hr TITRATE IV Last administered on 07/28/16 12:18; Admin Dose 1.87 MLS/HR; Start 07/28/16 at 12:00; Status Future Hold Montelukast Sodium (Singulair) 10 mg HS NGT Last administered on 07/30/16 21: 10; Admin Dose 10 MG; Start 07/28/16 at 21:00 Linagliptin (Tradjenta) 5 mg DAILY NGT Last administered on 07/31/16 09:09; Admin Dose 5 MG; Start 07/28/16 at 13:30 Methylprednisolone Sodium Succinate (Solu-Medrol) 80 mg Q6 IV Last administered on 07/31/16 12:43; Admin Dose 80 MG; Start 07/29/16 at 12:00 Insulin Human NPH (Humulin N) 10 unit Q6 SC Last administered on 07/31/16 12: 49; Admin Dose 10 UNIT; Start 07/29/16 at 12:00 Insulin Glargine (Lantus) 15 unit DAILY@20 SC Last administered on 07/30/16 20 :32; Admin Dose 15 UNIT; Start 07/29/16 at 20:00 Salmeterol Xinafoate/ Fluticasone (Advair 250/50 Diskus) 1 inh BID INH Last administered on 07/31/16 09:11; Admin Dose 1 INH; Start 07/29/16 at 21:00 Lorazepam (Ativan) 1 mg Q6H PRN PO ANXIETY Last administered on 07/29/16 23:41 ; Admin Dose 1 MG; Start 07/29/16 at 23:30 Influenza Virus Vaccine (Fluzone) 0.5 ml ONCE ONCE IM* ; Start 08/01/16 at 09:00 ; Stop 08/01/16 at 09:01 ESTEFANI BORREGO Jul 31, 2016 14:54
[2016-07-31] MEDS: MONTELUKAST 10 MG TAB NGT SCH (20:54)
[2016-07-31] MEDS: ATORVASTATIN 20 MG TAB PO SCH (20:54)
[2016-07-31] MEDS: CEFEPIME 2GM/50 ML (PMX) 50 ML IVPB SCH (20:55)
[2016-07-31] MEDS: INSULIN GLARGINE [LANtus] 3 ML PEN SC SCH (21:10)
[2016-08-01] VITALS (10 sets, daily range): BP systolic 90–127; BP diastolic 56–70; PULSE 64–78; RESP 18–20
[2016-08-01] MEDS: ALBUTEROL/IPRATROPIUM (NEB) 3 ML AMP HHN SCH ×4 (01:20→20:05)
[2016-08-01] MEDS: INSULIN ASPART [NOVOLOG] 3 ML PEN SC SCH ×5 (04:00→20:00)
[2016-08-01] MEDS: NPH, HUMAN INSULIN ISOPHANE 3ML VIAL SC SCH (06:00)
[2016-08-01] MEDS: METHYLPREDNISOLONE 125 MG INJ IV SCH (06:10)
[2016-08-01] MEDS: PANTOPRAZOLE 40 MG INJ IV SCH (06:11)
[2016-08-01] MEDS: SOD CHLORIDE 0.9% 1,000 ML IV SCH ×3 (06:11→22:07)
[2016-08-01 07:22] LABS: HEMATOCRIT 26.7 % (42.0-52.0); HEMOGLOBIN 9.2 g/dl (14.0-18.0); LYMPHOCYTES # 0.3 10^3/ul (0.8-2.9); LYMPHOCYTES % 2.6 % (15.0-51.0); MEAN CORPUSCULAR HEMOGLOBIN 32.2 pg (29.0-33.0); MEAN CORPUSCULAR HGB CONC 34.4 g/dl (32.0-37.0); MEAN CORPUSCULAR VOLUME 93.6 fl (82.0-101.0); MEAN PLATELET VOLUME 8.4 fl (7.4-10.4); MONOCYTE # 0.7 10^3/ul (0.3-0.9); MONOCYTES % 6.3 % (0.0-11.0); NEUTROPHIL # 10.1 10^3/ul (1.6-7.5); NEUTROPHILS % 91.1 % (39.0-77.0); PLATELET COUNT 127 10^3/UL (140-440); RED BLOOD COUNT 2.85 10^6/ul (4.70-6.10); RED CELL DISTRIBUTION WIDTH 16.1 % (11.5-14.5)
[2016-08-01 07:29] LABS: CONDITION 1; LH ANALYZER COMMENTS 1
[2016-08-01 07:34] LABS: INR 1.32; PROTIME 16.5 Sec (12.2-14.2); PT RATIO 1.3
[2016-08-01 07:42] LABS: POTASSIUM 4.6 mmol/L (3.5-5.1)
[2016-08-01 07:44] LABS: CREATININE 1.3 mg/dl (0.61-1.24)
[2016-08-01 07:45] LABS: CALCIUM 9.1 mg/dl (8.4-10.2)
[2016-08-01] MEDS: metFORMIN 500 MG TAB PO SCH (08:00)
[2016-08-01] MEDS: LINAGLIPTIN 5 MG TABLET NGT SCH (08:54)
[2016-08-01] MEDS ORDERED: INFLUENZA VIRUS VACCINE 0.5 ML (DISPENSING) IM* ONE (09:00)
[2016-08-01] MEDS: ASPIRIN 81 MG TAB PO SCH (09:09)
[2016-08-01] MEDS: AZITHROMYCIN 500MG/NS (PMX) 250 ML IVPB SCH (09:09)
[2016-08-01] MEDS: MULTIVITAMINS THERAPEUTIC TAB PO SCH (09:10)
[2016-08-01] MEDS: SERTRALINE 100 MG TAB PO SCH (09:10)
[2016-08-01] MEDS: METOPROLOL 25 MG TAB PO SCH ×2 (09:10→22:20)
[2016-08-01] MEDS: SALMETEROL/FLUTICASONE 250/50 INHA INH SCH ×2 (10:20→22:20)
[2016-08-01] MEDS ORDERED: NPH, HUMAN INSULIN ISOPHANE 3ML VIAL SC SCH (12:00)
--- NOTE | 2016-08-01 12:43 | PN ---
DATE: 08/01/2016 SUBJECTIVE: The patient is stable this morning. No evidence of respiratory distress. OBJECTIVE: VITAL SIGNS: Temperature 98, pulse 93, blood pressure 117/58, O2 saturation 96% on 2 liters. NECK: Supple. Dry mucous membranes. HEENT: Pupils equal, round and reactive to light. CARDIAC: S1, S2, no added sounds or murmurs. CHEST: Diminished air entry both lung bases. ABDOMEN: Soft, nontender. EXTREMITIES: No cyanosis, clubbing, 1+ edema. NEUROLOGIC: Generalized weakness. LABORATORY DATA: White count 11.0, hemoglobin 9.2, platelets 127. BUN 29, creatinine 1.3. IMPRESSION AND PLAN: 1. Status post cardiopulmonary arrest. 2. Chronic obstructive pulmonary disease with exacerbation. 3. History of atrial fibrillation. PLAN: 1. Continue ambulation. 2. Consider de-escalation of antibiotics. 3. Consider penitentiary facility placement. Dictated By: NASH MCKEON/SUDHAKAR Conf#: [id number] DID#: [id number]
--- NOTE | 2016-08-01 13:38 | CONS ---
Date/Time of Note Date/Time of Note DATE: 08/01/16 TIME: 13:34 Assessment/Plan Assessment/Plan Chief Complaint/Hosp Course 75-year-old gentleman who was admitted through the emergency room after having suffered an arrest at home. History is obtained from speaking to 2 of his daughters and review of the charts. Please note he has a pre-existing history of diabetes mellitus type 2. According to the family he had been on glipizide and previously admit had been on metformin which was discontinued in his diabetic control recently had not been good. Most notably in the events leading up to the arrest he had been having a cough with worsening of his underlying breathing difficulties for the last 3-4 weeks. His breathing was getting progressively worse and is using a nebulizer at home. His home medications included prednisone albuterol by hand-held nebulizer anticholinergic medications. He was not on Singulair and he was not on inhaled steroid as a controller medication. He does complain of significant dyspnea and subsequently suffered an arrest during the 1 minute that his daughter was out of the room obtaining her cell phone to call 911. Please see the reports for the events. Please note that the family reports he is not using any over- the-counter cold medications of any type Problems: (1) COPD with asthma Status: Chronic Comment: This gentleman is on medications and has improved nicely. It may be a consideration to try giving him an anticholinergic medication was given the known history of BPH we will have to be very careful and watch for development of a significant postvoid residual. I will defer off on this to the pulmonary consultants. Please note that his a question about whether or not we need to continue with the steroids as currently being prescribed or not (2) Steroid-induced hyperglycemia Status: Resolved Comment: This is coming down nicely with diminution of the dosage of the steroid (3) Atrial fibrillation with RVR Status: Chronic Comment: Adequately controlled with combination of digoxin and beta-jaquelin (4) CHF exacerbation Status: Acute Comment: Stable and under control Qualifiers: Congestive heart failure type: unspecified congestive heart failure type Qualified Code: I50.9 - Acute on chronic congestive heart failure, unspecified congestive heart failure type (5) HTN (hypertension) Status: Acute Comment: Adequately controlled Qualifiers: Hypertension type: essential hypertension Qualified Code: I10 - Essential hypertension (6) BPH (benign prostatic hypertrophy) Status: Acute Comment: As noted above the usage of an anticholinergic agent in this gentleman would be a question. It which should be done only with extreme caution. Qualifiers: Prostatic enlargement morphology: unspecified morphology Lower urinary tract symptom presence: symptoms absent Qualified Code: N40.0 - Benign prostatic hyperplasia without lower urinary tract symptoms, unspecified morphology (7) T2DM (type 2 diabetes mellitus) Status: Chronic Comment: His sugar controls are coming down nicely. We will adjust his regimen to reflect Qualifiers: Diabetes mellitus complication status: with unspecified complications Diabetes mellitus correction insulin use: without terminal worker use Qualified Code : E11.8 - Type 2 diabetes mellitus with complication, without long-term current use of insulin (8) Acute respiratory failure Status: Acute Comment: He is improved nicely. I am uncertain about whether or not we need to continue the intravenous azithromycin 500 mg a day after the fifth dosage Qualifiers: Respiratory failure complication: unspecified whether with hypoxia or hypercapnia Qualified Code: J96.00 - Acute respiratory failure, unspecified whether with hypoxia or hypercapnia Consultation Date/Type/Reason Admit Date/Time Jul 27, 2016 at 17:13 Initial Consult Date 07/28/16 Type of Consultation: Endocrinology Reason for Consultation Diabetes mellitus type 2 with significant hyper glycemia after implant being placed on IV steroid therapy for COPD exacerbation Referring Provider: ERICA GONZALEZ MD 24 HR Interval Summary Free Text/Dictation Patient is starting to have hypoglycemic reactions and it turns out that his steroids were stopped but the insulin was continued. Constitutional: no complaints (Denies fevers chills or sweats) Detailed Summary Respiratory: shortness of breath, wheezing (Please note these are less than prior) Cardiovascular: no complaints Gastrointestinal: no complaints Exam/Review of Systems Vital Signs Vitals Vital Signs Date Time Temp Pulse Resp B/P Pulse Ox O2 Delivery O2 Flow Rate FiO2 08/01/16 12:04 97.1 82 19 120/59 97 08/01/16 08:00 Nasal Cannula 2.0 07/30/16 01:41 28 Intake and Output 07/31/16 07/31/16 08/01/16 15:00 23:00 07:00 Intake Total 1900 ml 800 ml Output Total 400 ml Balance 1900 ml 400 ml Exam Constitutional: alert, oriented Neck: non-tender, supple Respiratory: clear to auscultation, diminished breath sounds Cardiovascular: nl pulses, regular rate and rhythm Results Result Diagram: 08/01/16 0635 08/01/16 0635 Results 24 hrs Laboratory Tests Test 07/31/16 17:15 07/31/16 20:01 08/01/16 00:12 08/01/16 00:55 Bedside Glucose 104 99 52 L 55 L Test 08/01/16 00:59 08/01/16 01:56 08/01/16 02:19 08/01/16 04:43 Bedside Glucose 54 L 59 L 70 66 L Test 08/01/16 06:35 08/01/16 06:36 08/01/16 07:49 08/01/16 08:27 Anion Gap 17 H Basophils # 0.0 Basophils % 0.0 Blood Morphology Comment Blood Urea Nitrogen 29 H Calcium Level 9.1 Carbon Dioxide Level 20 L Chloride Level 110 Creatinine 1.30 H Eosinophils # 0.0 Eosinophils % 0.0 Glucose Level 78 Hematocrit 26.7 L Hemoglobin 9.2 L INR International Normalized Ratio 1.32 Lymphocytes # 0.3 L Lymphocytes % 2.6 L Mean Corpuscular Hemoglobin 32.2 Mean Corpuscular Hemoglobin Concent 34.4 Mean Corpuscular Volume 93.6 Mean Platelet Volume 8.4 # Monocytes # 0.7 Monocytes % 6.3 Neutrophils # 10.1 H Neutrophils % 91.1 H Nucleated Red Blood Cells # 0.0 Nucleated Red Blood Cells % 0.0 Platelet Count 127 L Potassium Level 4.6 Prothrombin Time 16.5 H Prothrombin Time Ratio 1.3 Red Blood Count 2.85 L Red Cell Distribution Width 16.1 H Sodium Level 142 White Blood Count 11.0 H Bedside Glucose 82 56 L 85 Test 08/01/16 12:13 Bedside Glucose 78 Medications Medications Current Medications Lorazepam (Ativan) 2 mg Q2H PRN IV RASS GOAL -2 TO -3; Start 07/27/16 at 17:30 Morphine Sulfate (morphine) 2 mg Q2H PRN IV PAIN LEVEL 4-7; Start 07/27/16 at 17 :30 Ondansetron HCl (Zofran Inj) 4 mg Q6H PRN IV NAUSEA AND/OR VOMITING; Start 07/27 at 17:30 Nitroglycerin (Nitroglycerin (Sl Tab) 0.4 Mg) 1 tab Q5M PRN SL CHEST PAIN; Start 07/27/16 at 17:30 Acetaminophen (Tylenol Liquid) 650 mg Q6H PRN PO PAIN LEVEL 1-3 OR FEVER; Start 07/27/16 at 17:30 Acetaminophen (Tylenol Tab) 650 mg Q6H PRN PO PAIN LEVEL 1-3 OR FEVER; Start at 17:30 Lorazepam (Ativan) 1 mg Q2H PRN IV ANXIETY; Start 07/27/16 at 17:30 Docusate Sodium (Colace) 100 mg Q12H PRN PO CONSTIPATION; Start 07/27/16 at 17: 30 Bisacodyl (Dulcolax Supp) 10 mg DAILY PRN [place] CONSTIPATION; Start 07/27/16 at 17: 30 Pantoprazole 40 mg 40 mg DAILY@06 IV Last administered on 08/01/16 06:11; Admin Dose 40 MG; Start 07/28/16 at 06:00 Cefepime HCl (Maxipime 2gm/50 ml (Pmx)) 50 ml @ 100 mls/hr Q24H IVPB Last administered on 07/31/16 20:55; Admin Dose 100 MLS/HR; Start 07/27/16 at 22:00 Aspirin (Aspirin) 81 mg DAILY PO Last administered on 08/01/16 09:09; Admin Dose 81 MG; Start 07/28/16 at 09:00 Atorvastatin Calcium (Lipitor) 20 mg HS PO Last administered on 07/31/16 20:54 ; Admin Dose 20 MG; Start 07/27/16 at 21:00 Digoxin (Digoxin) 0.125 mg DAILY@13 PO Last administered on 07/31/16 12:43; Admin Dose 0.125 MG; Start 07/28/16 at 13:00 Sertraline HCl (Zoloft) 100 mg DAILY PO Last administered on 08/01/16 09:10; Admin Dose 100 MG; Start 07/28/16 at 09:00 Miscellaneous Information 1 ea NOTE XX ; Start 07/27/16 at 18:00 Glucose (Glutose) 15 gm Q15M PRN PO DECREASED GLUCOSE; Start 07/27/16 at 18:00 Glucose (Glutose) 22.5 gm Q15M PRN PO DECREASED GLUCOSE; Start 07/27/16 at 18:00 Dextrose (D50w Syringe) 25 ml Q15M PRN IV DECREASED GLUCOSE Last administered on 08/01/16 05:05; Admin Dose 25 ML; Start 07/27/16 at 18:00 Dextrose (D50w Syringe) 50 ml Q15M PRN IV DECREASED GLUCOSE; Start 07/27/16 at 18:00 Glucagon (Glucagen) 1 mg Q15M PRN IM DECREASED GLUCOSE; Start 07/27/16 at 18:00 Glucose (Glutose) 15 gm Q15M PRN BUCCAL DECREASED GLUCOSE Last administered on 08/01/16 01:14; Admin Dose 15 GM; Start 07/27/16 at 18:00 Metoprolol Tartrate (Lopressor) 25 mg BID PO Last administered on 08/01/16 09: 10; Admin Dose 25 MG; Start 07/27/16 at 21:00 Multivitamins Therapeutic 1 tab 1 tab DAILY PO Last administered on 08/01/16 09:10; Admin Dose 1 TAB; Start 07/28/16 at 09:00 Sodium Chloride 1,000 ml @ 75 mls/hr [id number] IV Last administered on 06:11; Admin Dose 75 MLS/HR; Start 07/28/16 at 00:00 Azithromycin (Zithromax 500mg/ NS (Pmx)) 250 ml @ 250 mls/hr Q24H IVPB Last administered on 08/01/16 09:09; Admin Dose 250 MLS/HR; Start 07/28/16 at 10:00 Insulin Aspart (Novolog Insulin Pen) NOVOLOG *MILD* ALGORI... Q4H SC Last administered on 07/31/16 00:57; Admin Dose 1 UNIT; Start 07/28/16 at 12:00 Montelukast Sodium (Singulair) 10 mg HS NGT Last administered on 07/31/16 20: 54; Admin Dose 10 MG; Start 07/28/16 at 21:00 Linagliptin (Tradjenta) 5 mg DAILY NGT Last administered on 07/31/16 09:09; Admin Dose 5 MG; Start 07/28/16 at 13:30 Methylprednisolone Sodium Succinate (Solu-Medrol) 80 mg Q6 IV Last administered on 08/01/16 06:10; Admin Dose 80 MG; Start 07/29/16 at 12:00 Insulin Glargine (Lantus) 15 unit DAILY@20 SC Last administered on 07/31/16 21 :10; Admin Dose 15 UNIT; Start 07/29/16 at 20:00 Salmeterol Xinafoate/ Fluticasone (Advair 250/50 Diskus) 1 inh BID INH Last administered on 08/01/16 10:20; Admin Dose 1 INH; Start 07/29/16 at 21:00 Lorazepam (Ativan) 1 mg Q6H PRN PO ANXIETY Last administered on 07/29/16 23:41 ; Admin Dose 1 MG; Start 07/29/16 at 23:30 Insulin Human NPH (Humulin N) 6 unit Q6 SC ; Start 08/01/16 at 12:00 LEONARDA STEELE MD Aug 01, 2016 13:38
[2016-08-01] MEDS: DIGOXIN 0.125 MG TAB PO SCH (15:32)
--- NOTE | 2016-08-01 17:06 | PN ---
Date/Time of Note Date/Time of Note DATE: 08/01/16 TIME: 16:59 Assessment/Plan VTE Prophylaxis VTE Prophylaxis Intervention: LMWH Lines/Catheters IV Catheter Type (from Nrs): Peripheral IV Urinary Cath still in place: Yes Reason Cath still needed: urinary retention Assessment/Plan Chief Complaint/Hosp Course S: 75-year-old gentleman admitted with cough with yellow expectoration and wheezing but was intubated for respiratory distress. Presently extubated and doing well. 08/01 positive dyspnea/edema. No chest pain/ fever. Awake alert. O:vss; rate controlled atrial fib PE No pallor or JVD Irregular, no murmur rub gallop Diminished but clear bilaterally; no tachypnea Extremities +3+ edema bilaterally A/P 1. Acute hypoxic respiratory failure; stable and improved. 2. Acute on chronic decompensated diastolic CHF. Stable cont diuretics 3. Probable chr CAD; cath later this week 4. NSTEMI vs demand ischemia 5. MVR 6. Chr COPD w possible acute exacerbation 7. Past tobacco 8. Deconditioning 9. Cardiopulmonary arrest 10. Chr A Fib; hold Coumadin for probable cath. 11. Chronic type 2 diabetes a1c=11 12. Medication nonadherence Problems: Exam/Review of Systems Vital Signs Vitals Vital Signs Date Time Temp Pulse Resp B/P Pulse Ox O2 Delivery O2 Flow Rate FiO2 08/01/16 16:28 77 08/01/16 15:55 98.0 18 115/69 98 08/01/16 13:50 2.0 08/01/16 13:50 Nasal Cannula 07/30/16 01:41 28 Intake and Output 07/31/16 07/31/16 08/01/16 15:00 23:00 07:00 Intake Total 1900 ml 800 ml Output Total 400 ml Balance 1900 ml 400 ml Results Result Diagram: 08/01/16 0635 08/01/16 0635 Results 24 hrs Laboratory Tests Test 07/31/16 17:15 07/31/16 20:01 08/01/16 00:12 08/01/16 00:55 Bedside Glucose 104 99 52 L 55 L Test 08/01/16 00:59 08/01/16 01:56 08/01/16 02:19 08/01/16 04:43 Bedside Glucose 54 L 59 L 70 66 L Test 08/01/16 06:35 08/01/16 06:36 08/01/16 07:49 08/01/16 08:27 Anion Gap 17 H Basophils # 0.0 Basophils % 0.0 Blood Morphology Comment Blood Urea Nitrogen 29 H Calcium Level 9.1 Carbon Dioxide Level 20 L Chloride Level 110 Creatinine 1.30 H Eosinophils # 0.0 Eosinophils % 0.0 Glucose Level 78 Hematocrit 26.7 L Hemoglobin 9.2 L INR International Normalized Ratio 1.32 Lymphocytes # 0.3 L Lymphocytes % 2.6 L Mean Corpuscular Hemoglobin 32.2 Mean Corpuscular Hemoglobin Concent 34.4 Mean Corpuscular Volume 93.6 Mean Platelet Volume 8.4 # Monocytes # 0.7 Monocytes % 6.3 Neutrophils # 10.1 H Neutrophils % 91.1 H Nucleated Red Blood Cells # 0.0 Nucleated Red Blood Cells % 0.0 Platelet Count 127 L Potassium Level 4.6 Prothrombin Time 16.5 H Prothrombin Time Ratio 1.3 Red Blood Count 2.85 L Red Cell Distribution Width 16.1 H Sodium Level 142 White Blood Count 11.0 H Bedside Glucose 82 56 L 85 Test 08/01/16 12:13 Bedside Glucose 78 Medications Medications Current Medications Lorazepam (Ativan) 2 mg Q2H PRN IV RASS GOAL -2 TO -3; Start 07/27/16 at 17:30 Morphine Sulfate (morphine) 2 mg Q2H PRN IV PAIN LEVEL 4-7; Start 07/27/16 at 17 :30 Ondansetron HCl (Zofran Inj) 4 mg Q6H PRN IV NAUSEA AND/OR VOMITING; Start 07/27 at 17:30 Nitroglycerin (Nitroglycerin (Sl Tab) 0.4 Mg) 1 tab Q5M PRN SL CHEST PAIN; Start 07/27/16 at 17:30 Acetaminophen (Tylenol Liquid) 650 mg Q6H PRN PO PAIN LEVEL 1-3 OR FEVER; Start 07/27/16 at 17:30 Acetaminophen (Tylenol Tab) 650 mg Q6H PRN PO PAIN LEVEL 1-3 OR FEVER; Start at 17:30 Lorazepam (Ativan) 1 mg Q2H PRN IV ANXIETY; Start 07/27/16 at 17:30 Docusate Sodium (Colace) 100 mg Q12H PRN PO CONSTIPATION; Start 07/27/16 at 17: 30 Bisacodyl 10 mg 10 mg DAILY PRN [place] CONSTIPATION; Start 07/27/16 at 17:30 Cefepime HCl (Maxipime 2gm/50 ml (Pmx)) 50 ml @ 100 mls/hr Q24H IVPB Last administered on 07/31/16 20:55; Admin Dose 100 MLS/HR; Start 07/27/16 at 22:00 Aspirin (Aspirin) 81 mg DAILY PO Last administered on 08/01/16 09:09; Admin Dose 81 MG; Start 07/28/16 at 09:00 Atorvastatin Calcium (Lipitor) 20 mg HS PO Last administered on 07/31/16 20:54 ; Admin Dose 20 MG; Start 07/27/16 at 21:00 Digoxin (Digoxin) 0.125 mg DAILY@13 PO Last administered on 08/01/16 15:32; Admin Dose 0.125 MG; Start 07/28/16 at 13:00 Sertraline HCl (Zoloft) 100 mg DAILY PO Last administered on 08/01/16 09:10; Admin Dose 100 MG; Start 07/28/16 at 09:00 Miscellaneous Information 1 ea NOTE XX ; Start 07/27/16 at 18:00 Glucose (Glutose) 15 gm Q15M PRN PO DECREASED GLUCOSE; Start 07/27/16 at 18:00 Glucose (Glutose) 22.5 gm Q15M PRN PO DECREASED GLUCOSE; Start 07/27/16 at 18:00 Dextrose (D50w Syringe) 25 ml Q15M PRN IV DECREASED GLUCOSE Last administered on 08/01/16 05:05; Admin Dose 25 ML; Start 07/27/16 at 18:00 Dextrose (D50w Syringe) 50 ml Q15M PRN IV DECREASED GLUCOSE; Start 07/27/16 at 18:00 Glucagon (Glucagen) 1 mg Q15M PRN IM DECREASED GLUCOSE; Start 07/27/16 at 18:00 Glucose (Glutose) 15 gm Q15M PRN BUCCAL DECREASED GLUCOSE Last administered on 08/01/16 01:14; Admin Dose 15 GM; Start 07/27/16 at 18:00 Metoprolol Tartrate (Lopressor) 25 mg BID PO Last administered on 08/01/16 09: 10; Admin Dose 25 MG; Start 07/27/16 at 21:00 Multivitamins Therapeutic 1 tab 1 tab DAILY PO Last administered on 08/01/16 09:10; Admin Dose 1 TAB; Start 07/28/16 at 09:00 Sodium Chloride 1,000 ml @ 75 mls/hr [id number] IV Last administered on 06:11; Admin Dose 75 MLS/HR; Start 07/28/16 at 00:00 Azithromycin (Zithromax 500mg/ NS (Pmx)) 250 ml @ 250 mls/hr Q24H IVPB Last administered on 08/01/16 09:09; Admin Dose 250 MLS/HR; Start 07/28/16 at 10:00 Insulin Aspart (Novolog Insulin Pen) NOVOLOG *MILD* ALGORI... Q4H SC Last administered on 07/31/16 00:57; Admin Dose 1 UNIT; Start 07/28/16 at 12:00 Montelukast Sodium (Singulair) 10 mg HS NGT Last administered on 07/31/16 20: 54; Admin Dose 10 MG; Start 07/28/16 at 21:00 Linagliptin (Tradjenta) 5 mg DAILY NGT Last administered on 07/31/16 09:09; Admin Dose 5 MG; Start 07/28/16 at 13:30 Insulin Glargine (Lantus) 15 unit DAILY@20 SC Last administered on 07/31/16 21 :10; Admin Dose 15 UNIT; Start 07/29/16 at 20:00 Salmeterol Xinafoate/ Fluticasone (Advair 250/50 Diskus) 1 inh BID INH Last administered on 08/01/16 10:20; Admin Dose 1 INH; Start 07/29/16 at 21:00 Lorazepam (Ativan) 1 mg Q6H PRN PO ANXIETY Last administered on 07/29/16 23:41 ; Admin Dose 1 MG; Start 07/29/16 at 23:30 Famotidine (Pepcid) 20 mg BID PO ; Start 08/01/16 at 21:00 BOB PURDY MD Aug 01, 2016 17:06
--- NOTE | 2016-08-01 17:43 | CONS ---
Date/Time of Note Date/Time of Note DATE: 08/01/16 TIME: 17:39 Assessment/Plan Assessment/Plan Chief Complaint/Hosp Course MPRESSION: 1. Cardiac arrest. Assess etiology. 2. Positive troponin/non-ST elevation myocardial infarction. Assess significance. Assess for true acute coronary syndrome.-now downtrending/NL EF by echo 3. Abnormal electrocardiogram after arrest, with ST depressions. 4. Tachyarrhythmia. 5. History of mitral valve replacement.-bioprosthetic by echo 6. Hypotension, borderline.-improved/off presssors/stable 7. Diabetes mellitus with hyperglycemia. 8. Renal failure, improving. 9. Coagulopathy-improved 10. Anemia. 11. Thrombocytopenia-improving 12.CHF-diastolic acute on likely chronic 14. AF-started overnight 07/31 [place] PAF . Now on lovenox Recc: -Tele monitoring -Continue digoxin/statin/asa -Follow volume status/BP closely -Continue abx's/steroids/bronchodilators -BB as tolerated only -[facility] scheduled for monday as possible given worsening renal function -Continue lovenox coverage at this time Problems: Consultation Date/Type/Reason Admit Date/Time Jul 27, 2016 at 17:13 Initial Consult Date 07/28/16 Type of Consultation: Cardiology Reason for Consultation cardiac arrest Referring Provider: ERICA GONZALEZ MD Exam/Review of Systems Vital Signs Vitals Vital Signs Date Time Temp Pulse Resp B/P Pulse Ox O2 Delivery O2 Flow Rate FiO2 08/01/16 16:28 77 08/01/16 15:55 98.0 18 115/69 98 08/01/16 13:50 2.0 08/01/16 13:50 Nasal Cannula 07/30/16 01:41 28 Intake and Output 07/31/16 07/31/16 08/01/16 15:00 23:00 07:00 Intake Total 1900 ml 800 ml Output Total 400 ml Balance 1900 ml 400 ml Exam Review of Systems: CONSTITUTIONAL: No fevers, chills. PULMONARY: No sob CARDIOVASCULAR: No chest pain/palpitations GASTROINTESTINAL: No nausea/vomiting. GENITOURINARY: No hematuria/dysuria. MUSCULOSKELETAL: No myagias/arthalgias. PSYCHIATRIC: The patient denies depression. NEUROLOGIC: MIld generalized weakness Constitutional: alert, oriented Psych: no complaints Head: normocephalic ENMT: mucosa pink and moist Neck: jvd (9 cm water), supple Respiratory: diminished breath sounds (at bases/B) Cardiovascular: irregular rhythm Gastrointestinal: non-tender, soft Musculoskeletal: muscle tone (normal) Extremities: edema (BIlateral) 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: other (No focal deficits) Results Result Diagram: 08/01/16 0635 08/01/16 0635 Results 24 hrs Laboratory Tests Test 07/31/16 20:01 08/01/16 00:12 08/01/16 00:55 08/01/16 00:59 Bedside Glucose 99 52 L 55 L 54 L Test 08/01/16 01:56 08/01/16 02:19 08/01/16 04:43 08/01/16 06:35 Bedside Glucose 59 L 70 66 L Anion Gap 17 H Basophils # 0.0 Basophils % 0.0 Blood Morphology Comment Blood Urea Nitrogen 29 H Calcium Level 9.1 Carbon Dioxide Level 20 L Chloride Level 110 Creatinine 1.30 H Eosinophils # 0.0 Eosinophils % 0.0 Glucose Level 78 Hematocrit 26.7 L Hemoglobin 9.2 L INR International Normalized Ratio 1.32 Lymphocytes # 0.3 L Lymphocytes % 2.6 L Mean Corpuscular Hemoglobin 32.2 Mean Corpuscular Hemoglobin Concent 34.4 Mean Corpuscular Volume 93.6 Mean Platelet Volume 8.4 # Monocytes # 0.7 Monocytes % 6.3 Neutrophils # 10.1 H Neutrophils % 91.1 H Nucleated Red Blood Cells # 0.0 Nucleated Red Blood Cells % 0.0 Platelet Count 127 L Potassium Level 4.6 Prothrombin Time 16.5 H Prothrombin Time Ratio 1.3 Red Blood Count 2.85 L Red Cell Distribution Width 16.1 H Sodium Level 142 White Blood Count 11.0 H Test 08/01/16 06:36 08/01/16 07:49 08/01/16 08:27 08/01/16 12:13 Bedside Glucose 82 56 L 85 78 Test 08/01/16 17:30 Bedside Glucose 94 Medications Medications Current Medications Lorazepam (Ativan) 2 mg Q2H PRN IV RASS GOAL -2 TO -3; Start 07/27/16 at 17:30 Morphine Sulfate (morphine) 2 mg Q2H PRN IV PAIN LEVEL 4-7; Start 07/27/16 at 17 :30 Ondansetron HCl (Zofran Inj) 4 mg Q6H PRN IV NAUSEA AND/OR VOMITING; Start 07/27 at 17:30 Nitroglycerin (Nitroglycerin (Sl Tab) 0.4 Mg) 1 tab Q5M PRN SL CHEST PAIN; Start 07/27/16 at 17:30 Acetaminophen (Tylenol Liquid) 650 mg Q6H PRN PO PAIN LEVEL 1-3 OR FEVER; Start 07/27/16 at 17:30 Acetaminophen (Tylenol Tab) 650 mg Q6H PRN PO PAIN LEVEL 1-3 OR FEVER; Start at 17:30 Lorazepam (Ativan) 1 mg Q2H PRN IV ANXIETY; Start 07/27/16 at 17:30 Docusate Sodium (Colace) 100 mg Q12H PRN PO CONSTIPATION; Start 07/27/16 at 17: 30 Bisacodyl 10 mg 10 mg DAILY PRN [place] CONSTIPATION; Start 07/27/16 at 17:30 Cefepime HCl (Maxipime 2gm/50 ml (Pmx)) 50 ml @ 100 mls/hr Q24H IVPB Last administered on 07/31/16 20:55; Admin Dose 100 MLS/HR; Start 07/27/16 at 22:00 Aspirin (Aspirin) 81 mg DAILY PO Last administered on 08/01/16 09:09; Admin Dose 81 MG; Start 07/28/16 at 09:00 Atorvastatin Calcium (Lipitor) 20 mg HS PO Last administered on 07/31/16 20:54 ; Admin Dose 20 MG; Start 07/27/16 at 21:00 Digoxin (Digoxin) 0.125 mg DAILY@13 PO Last administered on 08/01/16 15:32; Admin Dose 0.125 MG; Start 07/28/16 at 13:00 Sertraline HCl (Zoloft) 100 mg DAILY PO Last administered on 08/01/16 09:10; Admin Dose 100 MG; Start 07/28/16 at 09:00 Miscellaneous Information 1 ea NOTE XX ; Start 07/27/16 at 18:00 Glucose (Glutose) 15 gm Q15M PRN PO DECREASED GLUCOSE; Start 07/27/16 at 18:00 Glucose (Glutose) 22.5 gm Q15M PRN PO DECREASED GLUCOSE; Start 07/27/16 at 18:00 Dextrose (D50w Syringe) 25 ml Q15M PRN IV DECREASED GLUCOSE Last administered on 08/01/16 05:05; Admin Dose 25 ML; Start 07/27/16 at 18:00 Dextrose (D50w Syringe) 50 ml Q15M PRN IV DECREASED GLUCOSE; Start 07/27/16 at 18:00 Glucagon (Glucagen) 1 mg Q15M PRN IM DECREASED GLUCOSE; Start 07/27/16 at 18:00 Glucose (Glutose) 15 gm Q15M PRN BUCCAL DECREASED GLUCOSE Last administered on 08/01/16 01:14; Admin Dose 15 GM; Start 07/27/16 at 18:00 Metoprolol Tartrate (Lopressor) 25 mg BID PO Last administered on 08/01/16 09: 10; Admin Dose 25 MG; Start 07/27/16 at 21:00 Multivitamins Therapeutic 1 tab 1 tab DAILY PO Last administered on 08/01/16 09:10; Admin Dose 1 TAB; Start 07/28/16 at 09:00 Sodium Chloride (NS) 1,000 ml @ 50 mls/hr Q20H IV Last administered on 17:35; Admin Dose 50 MLS/HR; Start 07/28/16 at 00:00 Insulin Aspart (Novolog Insulin Pen) NOVOLOG *MILD* ALGORI... Q4H SC Last administered on 07/31/16 00:57; Admin Dose 1 UNIT; Start 07/28/16 at 12:00 Montelukast Sodium (Singulair) 10 mg HS NGT Last administered on 07/31/16 20: 54; Admin Dose 10 MG; Start 07/28/16 at 21:00 Linagliptin (Tradjenta) 5 mg DAILY NGT Last administered on 07/31/16 09:09; Admin Dose 5 MG; Start 07/28/16 at 13:30 Salmeterol Xinafoate/ Fluticasone (Advair 250/50 Diskus) 1 inh BID INH Last administered on 08/01/16 10:20; Admin Dose 1 INH; Start 07/29/16 at 21:00 Lorazepam (Ativan) 1 mg Q6H PRN PO ANXIETY Last administered on 07/29/16 23:41 ; Admin Dose 1 MG; Start 07/29/16 at 23:30 Famotidine (Pepcid) 20 mg QHS PO ; Start 08/01/16 at 21:00 Enoxaparin Sodium (Lovenox) 85 mg Q24H SC ; Start 08/01/16 at 17:30 Azithromycin (Zithromax) 500 mg DAILY PO ; Start 08/02/16 at 09:00 Insulin Glargine (Lantus) 7 unit DAILY@20 SC ; Start 08/01/16 at 20:00 ESTEFANI BORREGO Aug 01, 2016 17:43
[2016-08-01] MEDS: ENOXAPARIN 100 MG/ML SYG SC SCH (18:04)
[2016-08-01] MEDS ORDERED: INSULIN GLARGINE [LANtus] 3 ML PEN SC SCH (20:00)
[2016-08-01] MEDS ORDERED: FAMOTIDINE 20 MG TAB PO SCH (21:00)
[2016-08-01] MEDS: MONTELUKAST 10 MG TAB NGT SCH (22:20)
[2016-08-01] MEDS: CEFEPIME 2GM/50 ML (PMX) 50 ML IVPB SCH (22:37)
[2016-08-01] MEDS: ATORVASTATIN 20 MG TAB PO SCH (22:37)
[2016-08-01] MEDS: FAMOTIDINE 20 MG TAB PO SCH (22:37)
[2016-08-02] VITALS (9 sets, daily range): BP systolic 113–133; BP diastolic 57–77; PULSE 68–77; RESP 19–20
[2016-08-02] MEDS: ALBUTEROL/IPRATROPIUM (NEB) 3 ML AMP HHN SCH ×4 (01:19→20:22)
[2016-08-02] MEDS: GUAIFENESIN/DM 5ML CUP PO PRN (03:13)
[2016-08-02] MEDS: INSULIN ASPART [NOVOLOG] 3 ML PEN SC SCH ×6 (04:00→22:35)
[2016-08-02 07:51] LABS: BASOPHILS % 0.2 % (0.0-2.0); EOSINOPHILS # 0.1 10^3/ul (0.0-0.5); HEMATOCRIT 29.9 % (42.0-52.0); LYMPHOCYTES # 0.5 10^3/ul (0.8-2.9); LYMPHOCYTES % 5.2 % (15.0-51.0); MEAN CORPUSCULAR HEMOGLOBIN 31.5 pg (29.0-33.0); MEAN CORPUSCULAR HGB CONC 33.6 g/dl (32.0-37.0); MEAN CORPUSCULAR VOLUME 93.8 fl (82.0-101.0); MEAN PLATELET VOLUME 8.4 fl (7.4-10.4); MONOCYTE # 0.3 10^3/ul (0.3-0.9); MONOCYTES % 3.4 % (0.0-11.0); NEUTROPHIL # 8.3 10^3/ul (1.6-7.5); NEUTROPHILS % 90.2 % (39.0-77.0); PLATELET COUNT 133 10^3/UL (140-440); RED BLOOD COUNT 3.18 10^6/ul (4.70-6.10); UNCORRECTED WBC 9.2 10^3/ul (4.8-10.8); WHITE BLOOD COUNT 9.2 10^3/ul (4.8-10.8)
[2016-08-02 07:53] LABS: INR 1.24; PROTIME 15.7 Sec (12.2-14.2); PT RATIO 1.2
[2016-08-02 07:55] LABS: CONDITION 1; LH ANALYZER COMMENTS 1
[2016-08-02 07:57] LABS: POTASSIUM 4.4 mmol/L (3.5-5.1)
[2016-08-02 07:59] LABS: CREATININE 1.13 mg/dl (0.61-1.24)
[2016-08-02 08:00] LABS: CALCIUM 8.6 mg/dl (8.4-10.2); PHOSPHORUS 3.2 mg/dl (2.5-4.9)
[2016-08-02 08:29] LABS: THYROID STIMULATING HORMONE 1.35 MIU/L (0.465-4.680)
--- NOTE | 2016-08-02 08:48 | CONS ---
Date/Time of Note Date/Time of Note DATE: 08/02/16 TIME: 08:45 Assessment/Plan Assessment/Plan Additional Assessment/Plan 1. Cardiac arrest. Assess etiology- [facility] planned tomorrow with DR. Enriquez 2. Positive troponin/non-ST elevation myocardial infarction. Assess significance. Assess for true acute coronary syndrome.-now downtrending/NL EF by echo 3. Abnormal electrocardiogram after arrest, with ST depressions. 4. Tachyarrhythmia- a. fib in 80s now 5. History of mitral valve replacement.-bioprosthetic by echo - stable by exam 6. Hypotension, borderline.-improved/off presssors/stable 7. Diabetes mellitus with hyperglycemia. 8. Renal failure, improving- Cr 1.13 - reasonable for [facility] 9. Coagulopathy-improved 10. Anemia. 11. Thrombocytopenia-improving 12.CHF-diastolic acute on likely chronic 14. AF-started overnight 07/31 [place] PAF . Now on lovenox - will hold in am for [facility] Consultation Date/Type/Reason Admit Date/Time Jul 27, 2016 at 17:13 Initial Consult Date 07/28/16 Type of Consultation: Cardiology Referring Provider: ERICA GONZALEZ MD 24 HR Interval Summary Free Text/Dictation NO acute events - CHF by exam, acute on chronic - con't diuresis - [facility] planned tomorrow - NPO past midnight, hold am Lovenox ROS: No fever, no chills, no nausea, no vomiting, no diarrhea/constipation No recent weight changes No chest pain, no PND, no orthopnea + SOB No dizziness, blurred vision No thirst, no heat or cold intolerance + edema Exam/Review of Systems Vital Signs Vitals Vital Signs Date Time Temp Pulse Resp B/P Pulse Ox O2 Delivery O2 Flow Rate FiO2 08/02/16 08:42 77 18 98 Nasal Cannula 2.0 08/02/16 08:21 97.8 128/77 07/30/16 01:41 28 Intake and Output 08/01/16 08/01/16 08/02/16 15:00 23:00 07:00 Intake Total 1535 ml 250 ml Output Total 400 ml 450 ml Balance 1135 ml -200 ml Exam General: WN/WD/NAD, AOx 3 Sapnish HEENT: Unicetric/atraumatic/EOMI (follow commands) NECK: JVD elevated 9 cm , no thyromegaly Lymph: no lymphadenopathy HEART: regular with no S3, II/ systolic murmur at apex LUNGS: Coarse sounds ABD: soft, NT, ND, +BS : Intact Neuro: non focal SKIN: chronic changes EXT: 2+ edema Results Result Diagram: 08/02/16 0725 08/02/16 0725 Results 24 hrs Laboratory Tests Test 08/01/16 12:13 08/01/16 17:30 08/01/16 20:18 08/02/16 00:41 Bedside Glucose 78 94 136 144 Test 08/02/16 04:03 08/02/16 07:25 08/02/16 08:28 Bedside Glucose 127 69 L Anion Gap 14 Basophils # 0.0 Basophils % 0.2 Blood Morphology Comment Blood Urea Nitrogen 27 H Calcium Level 8.6 Carbon Dioxide Level 23 Chloride Level 107 Creatinine 1.13 Eosinophils # 0.1 Eosinophils % 1.0 Glucose Level 90 Hematocrit 29.9 L Hemoglobin 10.0 L INR International Normalized Ratio 1.24 Lymphocytes # 0.5 L Lymphocytes % 5.2 L Magnesium Level 2.0 Mean Corpuscular Hemoglobin 31.5 Mean Corpuscular Hemoglobin Concent 33.6 Mean Corpuscular Volume 93.8 Mean Platelet Volume 8.4 Monocytes # 0.3 Monocytes % 3.4 Neutrophils # 8.3 H Neutrophils % 90.2 H Nucleated Red Blood Cells # 0.0 Nucleated Red Blood Cells % 0.0 Phosphorus Level 3.2 Platelet Count 133 L Potassium Level 4.4 Prothrombin Time 15.7 H Prothrombin Time Ratio 1.2 Red Blood Count 3.18 L Red Cell Distribution Width 16.0 H Sodium Level 140 Thyroid Stimulating Hormone (TSH) 1.350 White Blood Count 9.2 Medications Medications Current Medications Lorazepam (Ativan) 2 mg Q2H PRN IV RASS GOAL -2 TO -3; Start 07/27/16 at 17:30 Morphine Sulfate (morphine) 2 mg Q2H PRN IV PAIN LEVEL 4-7; Start 07/27/16 at 17 :30 Ondansetron HCl (Zofran Inj) 4 mg Q6H PRN IV NAUSEA AND/OR VOMITING; Start 07/27 at 17:30 Nitroglycerin (Nitroglycerin (Sl Tab) 0.4 Mg) 1 tab Q5M PRN SL CHEST PAIN; Start 07/27/16 at 17:30 Acetaminophen (Tylenol Liquid) 650 mg Q6H PRN PO PAIN LEVEL 1-3 OR FEVER; Start 07/27/16 at 17:30 Acetaminophen (Tylenol Tab) 650 mg Q6H PRN PO PAIN LEVEL 1-3 OR FEVER; Start at 17:30 Lorazepam (Ativan) 1 mg Q2H PRN IV ANXIETY; Start 07/27/16 at 17:30 Docusate Sodium (Colace) 100 mg Q12H PRN PO CONSTIPATION; Start 07/27/16 at 17: 30 Bisacodyl 10 mg 10 mg DAILY PRN [place] CONSTIPATION; Start 07/27/16 at 17:30 Cefepime HCl (Maxipime 2gm/50 ml (Pmx)) 50 ml @ 100 mls/hr Q24H IVPB Last administered on 08/01/16 22:37; Admin Dose 100 MLS/HR; Start 07/27/16 at 22:00 Aspirin (Aspirin) 81 mg DAILY PO Last administered on 08/01/16 09:09; Admin Dose 81 MG; Start 07/28/16 at 09:00 Atorvastatin Calcium (Lipitor) 20 mg HS PO Last administered on 08/01/16 22:37 ; Admin Dose 20 MG; Start 07/27/16 at 21:00 Digoxin (Digoxin) 0.125 mg DAILY@13 PO Last administered on 08/01/16 15:32; Admin Dose 0.125 MG; Start 07/28/16 at 13:00 Sertraline HCl (Zoloft) 100 mg DAILY PO Last administered on 08/01/16 09:10; Admin Dose 100 MG; Start 07/28/16 at 09:00 Miscellaneous Information 1 ea NOTE XX ; Start 07/27/16 at 18:00 Glucose (Glutose) 15 gm Q15M PRN PO DECREASED GLUCOSE; Start 07/27/16 at 18:00 Glucose (Glutose) 22.5 gm Q15M PRN PO DECREASED GLUCOSE; Start 07/27/16 at 18:00 Dextrose (D50w Syringe) 25 ml Q15M PRN IV DECREASED GLUCOSE Last administered on 08/01/16 05:05; Admin Dose 25 ML; Start 07/27/16 at 18:00 Dextrose (D50w Syringe) 50 ml Q15M PRN IV DECREASED GLUCOSE; Start 07/27/16 at 18:00 Glucagon (Glucagen) 1 mg Q15M PRN IM DECREASED GLUCOSE; Start 07/27/16 at 18:00 Glucose (Glutose) 15 gm Q15M PRN BUCCAL DECREASED GLUCOSE Last administered on 08/01/16 01:14; Admin Dose 15 GM; Start 07/27/16 at 18:00 Metoprolol Tartrate (Lopressor) 25 mg BID PO Last administered on 08/01/16 22: 20; Admin Dose 25 MG; Start 07/27/16 at 21:00 Multivitamins Therapeutic 1 tab 1 tab DAILY PO Last administered on 08/01/16 09:10; Admin Dose 1 TAB; Start 07/28/16 at 09:00 Sodium Chloride (NS) 1,000 ml @ 50 mls/hr Q20H IV Last administered on 17:35; Admin Dose 50 MLS/HR; Start 07/28/16 at 00:00 Insulin Aspart (Novolog Insulin Pen) NOVOLOG *MILD* ALGORI... Q4H SC Last administered on 07/31/16 00:57; Admin Dose 1 UNIT; Start 07/28/16 at 12:00 Montelukast Sodium (Singulair) 10 mg HS NGT Last administered on 08/01/16 22: 20; Admin Dose 10 MG; Start 07/28/16 at 21:00 Linagliptin (Tradjenta) 5 mg DAILY NGT Last administered on 07/31/16 09:09; Admin Dose 5 MG; Start 07/28/16 at 13:30 Salmeterol Xinafoate/ Fluticasone (Advair 250/50 Diskus) 1 inh BID INH Last administered on 08/01/16 22:20; Admin Dose 1 INH; Start 07/29/16 at 21:00 Lorazepam (Ativan) 1 mg Q6H PRN PO ANXIETY Last administered on 07/29/16 23:41 ; Admin Dose 1 MG; Start 07/29/16 at 23:30 Famotidine (Pepcid) 20 mg QHS PO Last administered on 08/01/16 22:37; Admin Dose 20 MG; Start 08/01/16 at 21:00 Enoxaparin Sodium (Lovenox) 85 mg Q24H SC Last administered on 08/01/16 18:04 ; Admin Dose 85 MG; Start 08/01/16 at 17:30 Azithromycin (Zithromax) 500 mg DAILY PO ; Start 08/02/16 at 09:00 Insulin Glargine (Lantus) 7 unit DAILY@20 SC Last administered on 08/01/16 22: 28; Admin Dose 7 UNIT; Start 08/01/16 at 20:00 Guaifenesin/ Dextromethorphan (Robitussin Dm Liquid Cup) 10 ml Q4H PRN PO COUGH Last administered on 08/02/16 03:13; Admin Dose 10 ML; Start 08/02/16 at 03:00 BEATA PENA MD Aug 02, 2016 08:48
[2016-08-02] MEDS ORDERED: FUROSEMIDE 20 MG INJ IV SCH (09:00)
--- NOTE | 2016-08-02 09:46 | PN ---
Date/Time of Note Date/Time of Note DATE: 08/02/16 TIME: 09:42 Assessment/Plan VTE Prophylaxis VTE Prophylaxis Intervention: LMWH Lines/Catheters IV Catheter Type (from Nrs): Peripheral IV Urinary Cath still in place: Yes Reason Cath still needed: urinary retention Assessment/Plan Chief Complaint/Hosp Course S: 75-yr-M admitted w cough, yellow expectoration, wheezing; was intubated for resp distress in er. Presently extubated, doing well. 08/01 positive dyspnea/edema. No chest pain/ fever. Awake alert. 08/02 feels weak; edema remains O:vss; rate controlled a fib PE No pallor or JVD Irregular, no m/r/g Diminished; occ wheeze; no tachypnea Ext: 2+ edema bilat A/P 1. Acute hypoxic respiratory failure; stable and improved. 2. Acute on chr decompensated diastolic CHF. Stable cont diuretics 3. 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 Cath soon; hold metformin 4. NSTEMI vs demand ischemia 5. MVR; Coumadin after cath; cont Lovenox 6. Chr COPD w possible ac exacerbation 7. Past tobacco 8. Deconditioning; start PT, may need Snf 9. Cardiopulmonary arrest 10. Chr A Fib; hold Coumadin for probable cath. 11. Chr type 2 diabetes a1c=11 12. Medication nonadherence 13. Thrombocytopenia; stable Problems: Exam/Review of Systems Vital Signs Vitals Vital Signs Date Time Temp Pulse Resp B/P Pulse Ox O2 Delivery O2 Flow Rate FiO2 08/02/16 08:42 77 18 98 Nasal Cannula 2.0 08/02/16 08:21 97.8 128/77 07/30/16 01:41 28 Intake and Output 08/01/16 08/01/16 08/02/16 15:00 23:00 07:00 Intake Total 1535 ml 250 ml Output Total 400 ml 450 ml Balance 1135 ml -200 ml Results Result Diagram: 08/02/16 0725 08/02/16 0725 Results 24 hrs Laboratory Tests Test 08/01/16 12:13 08/01/16 17:30 08/01/16 20:18 08/02/16 00:41 Bedside Glucose 78 94 136 144 Test 08/02/16 04:03 08/02/16 07:25 08/02/16 08:28 Bedside Glucose 127 69 L Anion Gap 14 Basophils # 0.0 Basophils % 0.2 Blood Morphology Comment Blood Urea Nitrogen 27 H Calcium Level 8.6 Carbon Dioxide Level 23 Chloride Level 107 Creatinine 1.13 Eosinophils # 0.1 Eosinophils % 1.0 Glucose Level 90 Hematocrit 29.9 L Hemoglobin 10.0 L INR International Normalized Ratio 1.24 Lymphocytes # 0.5 L Lymphocytes % 5.2 L Magnesium Level 2.0 Mean Corpuscular Hemoglobin 31.5 Mean Corpuscular Hemoglobin Concent 33.6 Mean Corpuscular Volume 93.8 Mean Platelet Volume 8.4 Monocytes # 0.3 Monocytes % 3.4 Neutrophils # 8.3 H Neutrophils % 90.2 H Nucleated Red Blood Cells # 0.0 Nucleated Red Blood Cells % 0.0 Phosphorus Level 3.2 Platelet Count 133 L Potassium Level 4.4 Prothrombin Time 15.7 H Prothrombin Time Ratio 1.2 Red Blood Count 3.18 L Red Cell Distribution Width 16.0 H Sodium Level 140 Thyroid Stimulating Hormone (TSH) 1.350 White Blood Count 9.2 Medications Medications Current Medications Lorazepam (Ativan) 2 mg Q2H PRN IV RASS GOAL -2 TO -3; Start 07/27/16 at 17:30 Morphine Sulfate (morphine) 2 mg Q2H PRN IV PAIN LEVEL 4-7; Start 07/27/16 at 17 :30 Ondansetron HCl (Zofran Inj) 4 mg Q6H PRN IV NAUSEA AND/OR VOMITING; Start 07/27 at 17:30 Nitroglycerin (Nitroglycerin (Sl Tab) 0.4 Mg) 1 tab Q5M PRN SL CHEST PAIN; Start 07/27/16 at 17:30 Acetaminophen (Tylenol Liquid) 650 mg Q6H PRN PO PAIN LEVEL 1-3 OR FEVER; Start 07/27/16 at 17:30 Acetaminophen (Tylenol Tab) 650 mg Q6H PRN PO PAIN LEVEL 1-3 OR FEVER; Start at 17:30 Lorazepam (Ativan) 1 mg Q2H PRN IV ANXIETY; Start 07/27/16 at 17:30 Docusate Sodium (Colace) 100 mg Q12H PRN PO CONSTIPATION; Start 07/27/16 at 17: 30 Bisacodyl 10 mg 10 mg DAILY PRN [place] CONSTIPATION; Start 07/27/16 at 17:30 Cefepime HCl (Maxipime 2gm/50 ml (Pmx)) 50 ml @ 100 mls/hr Q24H IVPB Last administered on 08/01/16 22:37; Admin Dose 100 MLS/HR; Start 07/27/16 at 22:00 Aspirin (Aspirin) 81 mg DAILY PO Last administered on 08/01/16 09:09; Admin Dose 81 MG; Start 07/28/16 at 09:00 Atorvastatin Calcium (Lipitor) 20 mg HS PO Last administered on 08/01/16 22:37 ; Admin Dose 20 MG; Start 07/27/16 at 21:00 Digoxin (Digoxin) 0.125 mg DAILY@13 PO Last administered on 08/01/16 15:32; Admin Dose 0.125 MG; Start 07/28/16 at 13:00 Sertraline HCl (Zoloft) 100 mg DAILY PO Last administered on 08/01/16 09:10; Admin Dose 100 MG; Start 07/28/16 at 09:00 Miscellaneous Information 1 ea NOTE XX ; Start 07/27/16 at 18:00 Glucose (Glutose) 15 gm Q15M PRN PO DECREASED GLUCOSE; Start 07/27/16 at 18:00 Glucose (Glutose) 22.5 gm Q15M PRN PO DECREASED GLUCOSE; Start 07/27/16 at 18:00 Dextrose (D50w Syringe) 25 ml Q15M PRN IV DECREASED GLUCOSE Last administered on 08/01/16 05:05; Admin Dose 25 ML; Start 07/27/16 at 18:00 Dextrose (D50w Syringe) 50 ml Q15M PRN IV DECREASED GLUCOSE; Start 07/27/16 at 18:00 Glucagon (Glucagen) 1 mg Q15M PRN IM DECREASED GLUCOSE; Start 07/27/16 at 18:00 Glucose (Glutose) 15 gm Q15M PRN BUCCAL DECREASED GLUCOSE Last administered on 08/01/16 01:14; Admin Dose 15 GM; Start 07/27/16 at 18:00 Metoprolol Tartrate (Lopressor) 25 mg BID PO Last administered on 08/01/16 22: 20; Admin Dose 25 MG; Start 07/27/16 at 21:00 Multivitamins Therapeutic 1 tab 1 tab DAILY PO Last administered on 08/01/16 09:10; Admin Dose 1 TAB; Start 07/28/16 at 09:00 Sodium Chloride (NS) 1,000 ml @ 50 mls/hr Q20H IV Last administered on 17:35; Admin Dose 50 MLS/HR; Start 07/28/16 at 00:00 Insulin Aspart (Novolog Insulin Pen) NOVOLOG *MILD* ALGORI... Q4H SC Last administered on 07/31/16 00:57; Admin Dose 1 UNIT; Start 07/28/16 at 12:00 Montelukast Sodium (Singulair) 10 mg HS NGT Last administered on 08/01/16 22: 20; Admin Dose 10 MG; Start 07/28/16 at 21:00 Linagliptin (Tradjenta) 5 mg DAILY NGT Last administered on 07/31/16 09:09; Admin Dose 5 MG; Start 07/28/16 at 13:30 Salmeterol Xinafoate/ Fluticasone (Advair 250/50 Diskus) 1 inh BID INH Last administered on 08/01/16 22:20; Admin Dose 1 INH; Start 07/29/16 at 21:00 Lorazepam (Ativan) 1 mg Q6H PRN PO ANXIETY Last administered on 07/29/16 23:41 ; Admin Dose 1 MG; Start 07/29/16 at 23:30 Famotidine (Pepcid) 20 mg QHS PO Last administered on 08/01/16 22:37; Admin Dose 20 MG; Start 08/01/16 at 21:00 Enoxaparin Sodium (Lovenox) 85 mg Q24H SC Last administered on 08/01/16 18:04 ; Admin Dose 85 MG; Start 08/01/16 at 17:30 Azithromycin (Zithromax) 500 mg DAILY PO ; Start 08/02/16 at 09:00 Insulin Glargine (Lantus) 7 unit DAILY@20 SC Last administered on 08/01/16 22: 28; Admin Dose 7 UNIT; Start 08/01/16 at 20:00 Guaifenesin/ Dextromethorphan (Robitussin Dm Liquid Cup) 10 ml Q4H PRN PO COUGH Last administered on 08/02/16 03:13; Admin Dose 10 ML; Start 08/02/16 at 03:00 Furosemide (Lasix) 20 mg NOW IV ; Start 08/02/16 at 09:00; Stop 08/02/16 at 23: 00 BOB PURDY MD Aug 02, 2016 09:45
[2016-08-02] MEDS: SALMETEROL/FLUTICASONE 250/50 INHA INH SCH ×2 (10:16→21:57)
[2016-08-02] MEDS: ASPIRIN 81 MG TAB PO SCH (10:17)
[2016-08-02] MEDS: MULTIVITAMINS THERAPEUTIC TAB PO SCH (10:17)
[2016-08-02] MEDS: METOPROLOL 25 MG TAB PO SCH ×2 (10:18→22:26)
[2016-08-02] MEDS: AZITHROMYCIN 250 MG TAB PO SCH (10:20)
[2016-08-02] MEDS: SERTRALINE 100 MG TAB PO SCH (10:24)
[2016-08-02] MEDS: DIGOXIN 0.125 MG TAB PO SCH (14:04)
--- NOTE | 2016-08-02 15:06 | PN ---
DATE: 08/02/2016 SUBJECTIVE: Patient remains stable today. No evidence of respiratory distress. VITAL SIGNS: Temperature 98, pulse 72, blood pressure 120/64, O2 saturation 96% on 2 L nasal cannul a. NECK: Supple. No JVD or lymphadenopathy. CARDIAC: S1, S2, no added sounds or murmurs. CHEST: Diminished air entry bilaterally. ABDOMEN: Soft, nontender. No guarding or rebound. EXTREMITIES: No cyanosis, clubbing, edema. NEUROLOGIC: Generalized weakness. LABORATORY DATA: White count 9.2, hemoglobin 10, platelets within normal limits. BUN 27, creatinin e 1.13. INR 1.24. IMPRESSION AND PLAN: 1. Resolving pneumonia to improve hypoxemic respiratory failure. 2. Improved leukocytosis. 3. Acute on chronic diastolic dysfunction. 4. History of type 2 diabetes. PLAN: 1. Continue supplemental O2 as needed. 2. Infectious disease recommendations. 3. Outpatient cardiac catheterization. 4. DVT and GI prophylaxis. 5. Discharge planning. Dictated By: NASH MCKEON/SUDHAKAR Conf#: [id number] DID#: [id number]
[2016-08-02] MEDS: ENOXAPARIN 100 MG/ML SYG SC SCH (17:52)
--- NOTE | 2016-08-02 18:29 | CONS ---
Date/Time of Note Date/Time of Note DATE: 08/02/16 TIME: 18:28 Assessment/Plan Assessment/Plan Chief Complaint/Hosp Course 75-year-old gentleman who was admitted through the emergency room after having suffered an arrest at home. History is obtained from speaking to 2 of his daughters and review of the charts. Please note he has a pre-existing history of diabetes mellitus type 2. According to the family he had been on glipizide and previously admit had been on metformin which was discontinued in his diabetic control recently had not been good. Most notably in the events leading up to the arrest he had been having a cough with worsening of his underlying breathing difficulties for the last 3-4 weeks. His breathing was getting progressively worse and is using a nebulizer at home. His home medications included prednisone albuterol by hand-held nebulizer anticholinergic medications. He was not on Singulair and he was not on inhaled steroid as a controller medication. He does complain of significant dyspnea and subsequently suffered an arrest during the 1 minute that his daughter was out of the room obtaining her cell phone to call 911. Please see the reports for the events. Please note that the family reports he is not using any over- the-counter cold medications of any type Problems: (1) COPD with asthma Status: Chronic Comment: Patient is improved nicely with medication therapeutics and optimization. Continue treatment (2) BPH (benign prostatic hypertrophy) Status: Acute Comment: Stable Qualifiers: Prostatic enlargement morphology: unspecified morphology Lower urinary tract symptom presence: symptoms absent Qualified Code: N40.0 - Benign prostatic hyperplasia without lower urinary tract symptoms, unspecified morphology (3) T2DM (type 2 diabetes mellitus) Status: Chronic Comment: Well-controlled with adjustments in the medication in the dim diminution in the dosage of the steroid Qualifiers: Diabetes mellitus complication status: with unspecified complications Diabetes mellitus terminal computer operator insulin use: without terminal computer operator use Qualified Code : E11.8 - Type 2 diabetes mellitus with complication, without long-term current use of insulin (4) Atrial fibrillation with RVR Status: Chronic Comment: Controlled; as per cardiology Consultation Date/Type/Reason Admit Date/Time Jul 27, 2016 at 17:13 Initial Consult Date 07/28/16 Type of Consultation: Endocrinology Referring Provider: ERICA GONZALEZ MD 24 HR Interval Summary Constitutional: no complaints Exam/Review of Systems Vital Signs Vitals Vital Signs Date Time Temp Pulse Resp B/P Pulse Ox O2 Delivery O2 Flow Rate FiO2 08/02/16 16:27 77 08/02/16 16:03 98.1 20 113/57 95 08/02/16 14:08 2.0 08/02/16 14:08 Nasal Cannula 07/30/16 01:41 28 Intake and Output 08/01/16 08/01/16 08/02/16 15:00 23:00 07:00 Intake Total 1535 ml 250 ml Output Total 400 ml 450 ml Balance 1135 ml -200 ml Exam Constitutional: alert, oriented Respiratory: clear to auscultation, diminished breath sounds Cardiovascular: irregular rhythm, nl pulses Results Result Diagram: 08/02/16 0725 08/02/16 0725 Results 24 hrs Laboratory Tests Test 08/01/16 20:18 08/02/16 00:41 08/02/16 04:03 08/02/16 07:25 Bedside Glucose 136 144 127 Anion Gap 14 Basophils # 0.0 Basophils % 0.2 Blood Morphology Comment Blood Urea Nitrogen 27 H Calcium Level 8.6 Carbon Dioxide Level 23 Chloride Level 107 Creatinine 1.13 Eosinophils # 0.1 Eosinophils % 1.0 Glucose Level 90 Hematocrit 29.9 L Hemoglobin 10.0 L INR International Normalized Ratio 1.24 Lymphocytes # 0.5 L Lymphocytes % 5.2 L Magnesium Level 2.0 Mean Corpuscular Hemoglobin 31.5 Mean Corpuscular Hemoglobin Concent 33.6 Mean Corpuscular Volume 93.8 Mean Platelet Volume 8.4 Monocytes # 0.3 Monocytes % 3.4 Neutrophils # 8.3 H Neutrophils % 90.2 H Nucleated Red Blood Cells # 0.0 Nucleated Red Blood Cells % 0.0 Phosphorus Level 3.2 Platelet Count 133 L Potassium Level 4.4 Prothrombin Time 15.7 H Prothrombin Time Ratio 1.2 Red Blood Count 3.18 L Red Cell Distribution Width 16.0 H Sodium Level 140 Thyroid Stimulating Hormone (TSH) 1.350 White Blood Count 9.2 Test 08/02/16 08:28 08/02/16 11:48 08/02/16 17:14 Bedside Glucose 69 L 154 141 Medications Medications Current Medications Lorazepam (Ativan) 2 mg Q2H PRN IV RASS GOAL -2 TO -3; Start 07/27/16 at 17:30 Morphine Sulfate (morphine) 2 mg Q2H PRN IV PAIN LEVEL 4-7; Start 07/27/16 at 17 :30 Ondansetron HCl (Zofran Inj) 4 mg Q6H PRN IV NAUSEA AND/OR VOMITING; Start 07/27 at 17:30 Nitroglycerin (Nitroglycerin (Sl Tab) 0.4 Mg) 1 tab Q5M PRN SL CHEST PAIN; Start 07/27/16 at 17:30 Acetaminophen (Tylenol Liquid) 650 mg Q6H PRN PO PAIN LEVEL 1-3 OR FEVER; Start 07/27/16 at 17:30 Acetaminophen (Tylenol Tab) 650 mg Q6H PRN PO PAIN LEVEL 1-3 OR FEVER; Start at 17:30 Lorazepam (Ativan) 1 mg Q2H PRN IV ANXIETY; Start 07/27/16 at 17:30 Docusate Sodium (Colace) 100 mg Q12H PRN PO CONSTIPATION; Start 07/27/16 at 17: 30 Bisacodyl (Dulcolax Supp) 10 mg DAILY PRN [place] CONSTIPATION; Start 07/27/16 at 17: 30 Aspirin (Aspirin) 81 mg DAILY PO Last administered on 08/02/16 10:17; Admin Dose 81 MG; Start 07/28/16 at 09:00 Atorvastatin Calcium (Lipitor) 20 mg HS PO Last administered on 08/01/16 22:37 ; Admin Dose 20 MG; Start 07/27/16 at 21:00 Digoxin (Digoxin) 0.125 mg DAILY@13 PO Last administered on 08/02/16 14:04; Admin Dose 0.125 MG; Start 07/28/16 at 13:00 Sertraline HCl (Zoloft) 100 mg DAILY PO Last administered on 08/02/16 10:24; Admin Dose 100 MG; Start 07/28/16 at 09:00 Miscellaneous Information 1 ea NOTE XX ; Start 07/27/16 at 18:00 Glucose (Glutose) 15 gm Q15M PRN PO DECREASED GLUCOSE; Start 07/27/16 at 18:00 Glucose (Glutose) 22.5 gm Q15M PRN PO DECREASED GLUCOSE; Start 07/27/16 at 18:00 Dextrose (D50w Syringe) 25 ml Q15M PRN IV DECREASED GLUCOSE Last administered on 08/01/16 05:05; Admin Dose 25 ML; Start 07/27/16 at 18:00 Dextrose (D50w Syringe) 50 ml Q15M PRN IV DECREASED GLUCOSE; Start 07/27/16 at 18:00 Glucagon (Glucagen) 1 mg Q15M PRN IM DECREASED GLUCOSE; Start 07/27/16 at 18:00 Glucose (Glutose) 15 gm Q15M PRN BUCCAL DECREASED GLUCOSE Last administered on 08/01/16 01:14; Admin Dose 15 GM; Start 07/27/16 at 18:00 Metoprolol Tartrate (Lopressor) 25 mg BID PO Last administered on 08/02/16 10: 18; Admin Dose 25 MG; Start 07/27/16 at 21:00 Multivitamins Therapeutic (Theragran) 1 tab DAILY PO Last administered on 10:17; Admin Dose 1 TAB; Start 07/28/16 at 09:00 Insulin Aspart (Novolog Insulin Pen) NOVOLOG *MILD* ALGORI... Q4H SC Last administered on 08/02/16 17:55; Admin Dose 1 UNIT; Start 07/28/16 at 12:00 Montelukast Sodium (Singulair) 10 mg HS NGT Last administered on 08/01/16 22: 20; Admin Dose 10 MG; Start 07/28/16 at 21:00 Salmeterol Xinafoate/ Fluticasone (Advair 250/50 Diskus) 1 inh BID INH Last administered on 08/02/16 10:16; Admin Dose 1 INH; Start 07/29/16 at 21:00 Lorazepam (Ativan) 1 mg Q6H PRN PO ANXIETY Last administered on 07/29/16 23:41 ; Admin Dose 1 MG; Start 07/29/16 at 23:30 Famotidine (Pepcid) 20 mg QHS PO Last administered on 08/01/16 22:37; Admin Dose 20 MG; Start 08/01/16 at 21:00 Enoxaparin Sodium (Lovenox) 85 mg Q24H SC Last administered on 08/02/16 17:52 ; Admin Dose 85 MG; Start 08/01/16 at 17:30 Azithromycin (Zithromax) 500 mg DAILY PO Last administered on 08/02/16 10:20; Admin Dose 500 MG; Start 08/02/16 at 09:00 Guaifenesin/ Dextromethorphan (Robitussin Dm Liquid Cup) 10 ml Q4H PRN PO COUGH Last administered on 08/02/16 03:13; Admin Dose 10 ML; Start 08/02/16 at 03:00 Furosemide (Lasix) 20 mg NOW IV Last administered on 08/02/16 10:16; Admin Dose 20 MG; Start 08/02/16 at 09:00; Stop 08/02/16 at 23:00 Insulin Glargine (Lantus) 5 unit DAILY@20 SC ; Start 08/02/16 at 20:00 LEONARDA STEELE MD Aug 02, 2016 18:29
[2016-08-02] MEDS: ATORVASTATIN 20 MG TAB PO SCH (21:56)
[2016-08-02] MEDS: FAMOTIDINE 20 MG TAB PO SCH (21:56)
[2016-08-02] MEDS: MONTELUKAST 10 MG TAB NGT SCH (21:57)
[2016-08-02] MEDS: INSULIN GLARGINE [LANtus] 3 ML PEN SC SCH (22:02)
[2016-08-03] VITALS (45 sets, daily range): BP systolic 95–141; BP diastolic 51–71; PULSE 62–133; RESP 12–20; Ht 157.5 cm; Wt 80.2 kg
[2016-08-03] MEDS: ALBUTEROL/IPRATROPIUM (NEB) 3 ML AMP HHN SCH ×4 (02:13→21:10)
[2016-08-03] MEDS: INSULIN ASPART [NOVOLOG] 3 ML PEN SC SCH ×6 (04:00→20:00)
[2016-08-03 07:23] LABS: BASOPHILS % 0.4 % (0.0-2.0); EOSINOPHILS # 0.1 10^3/ul (0.0-0.5); EOSINOPHILS % 1.8 % (0.0-7.0); HEMATOCRIT 29.3 % (42.0-52.0); LYMPHOCYTES # 0.5 10^3/ul (0.8-2.9); LYMPHOCYTES % 5.7 % (15.0-51.0); MEAN CORPUSCULAR HEMOGLOBIN 31.9 pg (29.0-33.0); MEAN CORPUSCULAR VOLUME 93.8 fl (82.0-101.0); MEAN PLATELET VOLUME 9.5 fl (7.4-10.4); MONOCYTE # 0.6 10^3/ul (0.3-0.9); MONOCYTES % 7.5 % (0.0-11.0); NEUTROPHIL # 7.1 10^3/ul (1.6-7.5); NEUTROPHILS % 84.6 % (39.0-77.0); PLATELET COUNT 106 10^3/UL (140-440); RED BLOOD COUNT 3.12 10^6/ul (4.70-6.10); RED CELL DISTRIBUTION WIDTH 15.7 % (11.5-14.5); WHITE BLOOD COUNT 8.4 10^3/ul (4.8-10.8)
[2016-08-03 07:29] LABS: CONDITION 1; LH ANALYZER COMMENTS 1; SUSPECT 1; UNCORRECTED WBC 9.4 10^3/ul (4.8-10.8)
[2016-08-03 07:54] LABS: POTASSIUM 4.4 mmol/L (3.5-5.1)
[2016-08-03 07:57] LABS: CREATININE 1.06 mg/dl (0.61-1.24)
[2016-08-03 07:58] LABS: CALCIUM 8.4 mg/dl (8.4-10.2); MAGNESIUM 1.9 mg/dl (1.7-2.5); PHOSPHORUS 3.1 mg/dl (2.5-4.9)
[2016-08-03] MEDS: METOPROLOL 25 MG TAB PO SCH ×2 (09:00→21:44)
[2016-08-03] MEDS: SALMETEROL/FLUTICASONE 250/50 INHA INH SCH ×2 (09:26→21:45)
[2016-08-03] MEDS: ASPIRIN 81 MG TAB PO SCH (09:27)
[2016-08-03] MEDS: AZITHROMYCIN 250 MG TAB PO SCH (09:27)
[2016-08-03] MEDS: SERTRALINE 100 MG TAB PO SCH (09:27)
[2016-08-03] MEDS: MULTIVITAMINS THERAPEUTIC TAB PO SCH (09:27)
--- NOTE | 2016-08-03 11:22 | PN ---
DATE: 08/03/2016 SUBJECTIVE: Patient remains stable this morning. No evidence of respiratory distress. OBJECTIVE: VITAL SIGNS: Temperature 98, pulse is 79, blood pressure 106/57, O2 saturation 96% on 2 liters. NECK: Supple. No JVD or lymphadenopathy. CARDIAC: S1, S2, no added sounds or murmurs. CHEST: Diminished air entry bilaterally. ABDOMEN: Soft, nontender. No guarding or rebound. EXTREMITIES: No cyanosis, clubbing, edema. NEUROLOGIC: Generalized weakness. LABORATORY DATA: White count 8.4, hemoglobin 10, platelets of 106. BUN 25, creatinine 1.06. IMPRESSION AND PLAN: 1. Resolving hypoxemic respiratory failure. 2. Improved pneumonia. 3. Resolved leukocytosis. 4. History of type 2 diabetes. PLAN: 1. Cardiac recommendations, possible cardiac catheterization this morning. 2. Continue aspiration precautions. 3. Continue glycemic management per endocrinology. Dictated By: NASH MCKEON/SUDHAKAR Conf#: [id number] DID#: [id number]
[2016-08-03] MEDS ORDERED: VERAPAMIL 5 MG INJ ONE (11:31)
[2016-08-03] MEDS ORDERED: LIDOCAINE 1% (MDV) 20 ML INJ ONE (11:31)
[2016-08-03] MEDS ORDERED: IODIXANOL LOCM 100 ML BTL ONE (11:31)
[2016-08-03] MEDS ORDERED: MIDAZOLAM 1 MG/ML 2 ML INJ ONE (11:31)
[2016-08-03] MEDS ORDERED: FENTAnyl 50 MCG/ML VIAL ONE (11:31)
[2016-08-03] MEDS ORDERED: NITROGLYCERIN (IC) 100 MCG/ML INJ ONE (11:31)
[2016-08-03] MEDS ORDERED: HEPARIN 1000 UNITS/ML 10 ML INJ ONE (11:31)
[2016-08-03] MEDS: DIGOXIN 0.125 MG TAB PO SCH (13:00)
[2016-08-03] MEDS ORDERED: SOD CHLORIDE 0.9% 1,000 ML IV SCH (13:41)
--- NOTE | 2016-08-03 13:47 | CONS ---
Date/Time of Note Date/Time of Note DATE: 08/03/16 TIME: 13:43 Assessment/Plan Assessment/Plan Chief Complaint/Hosp Course MPRESSION: 1. Cardiac arrest. Assess etiology. 2. Positive troponin/non-ST elevation myocardial infarction. Assess significance. Assess for true acute coronary syndrome.-now downtrending/NL EF by echo 3. Abnormal electrocardiogram after arrest, with ST depressions. 4. Tachyarrhythmia. 5. History of mitral valve replacement.-bioprosthetic by echo 6. Hypotension, borderline.-improved/off presssors/stable 7. Diabetes mellitus with hyperglycemia. 8. Renal failure, improving. 9. Coagulopathy-improved 10. Anemia. 11. Thrombocytopenia-improving 12.CHF-diastolic acute on likely chronic 14. AF-started overnight 07/31 wan PAF . Now on lovenox Recc: -Tele monitoring -Continue digoxin/statin/asa -Follow volume status/BP closely -Continue abx's/steroids/bronchodilators -BB as tolerated only -[facility] today to rule out sig cad as etilogy of cardiac carrest -Hold lovenox for [facility] today Problems: Consultation Date/Type/Reason Admit Date/Time Jul 27, 2016 at 17:13 Initial Consult Date 07/28/16 Type of Consultation: Cardiology Reason for Consultation positive troponin/cardiac arrest Referring Provider: ERICA GONZALEZ MD Exam/Review of Systems Vital Signs Vitals Vital Signs Date Time Temp Pulse Resp B/P Pulse Ox O2 Delivery O2 Flow Rate FiO2 08/03/16 12:09 75 08/03/16 09:07 2.0 08/03/16 09:07 18 96 Nasal Cannula 08/03/16 07:47 97.9 106/57 08/02/16 20:22 21 Intake and Output 08/02/16 08/02/16 08/03/16 15:00 23:00 07:00 Intake Total 960 ml 200 ml Output Total 2000 ml 1125 ml Balance -1040 ml -925 ml Exam Review of Systems: CONSTITUTIONAL: No fevers, chills. PULMONARY: No sob CARDIOVASCULAR: No chest pain/palpitations GASTROINTESTINAL: No nausea/vomiting. GENITOURINARY: No hematuria/dysuria. MUSCULOSKELETAL: No myagias/arthalgias. PSYCHIATRIC: The patient denies depression. NEUROLOGIC: No weakness Constitutional: alert Psych: no complaints Head: normocephalic ENMT: mucosa pink and moist Neck: jvd (9 cm water), supple Respiratory: diminished breath sounds (at bases/B) Cardiovascular: regular rate and rhythm Gastrointestinal: non-tender, soft Musculoskeletal: muscle tone (normal) Extremities: edema (trace/B) 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: other (No focal deficits) Results Result Diagram: 08/03/16 0645 08/03/16 0643 Results 24 hrs Laboratory Tests Test 08/02/16 17:14 08/02/16 20:17 08/03/16 01:01 08/03/16 05:06 Bedside Glucose 141 170 146 132 Test 08/03/16 06:43 08/03/16 06:45 08/03/16 08:32 08/03/16 12:03 Anion Gap 11 Blood Urea Nitrogen 25 H Calcium Level 8.4 Carbon Dioxide Level 24 Chloride Level 108 Creatinine 1.06 Digoxin Level 0.9 L Glucose Level 111 Magnesium Level 1.9 Phosphorus Level 3.1 Potassium Level 4.4 Sodium Level 139 Basophils # 0.0 Basophils % 0.4 Blood Morphology Comment Eosinophils # 0.1 Eosinophils % 1.8 Hematocrit 29.3 L Hemoglobin 10.0 L Lymphocytes # 0.5 L Lymphocytes % 5.7 L Mean Corpuscular Hemoglobin 31.9 Mean Corpuscular Hemoglobin Concent 34.0 Mean Corpuscular Volume 93.8 Mean Platelet Volume 9.5 Monocytes # 0.6 Monocytes % 7.5 Neutrophils # 7.1 Neutrophils % 84.6 H Nucleated Red Blood Cells # 0.0 Nucleated Red Blood Cells % 0.0 Platelet Count 106 #L Red Blood Count 3.12 L Red Cell Distribution Width 15.7 H White Blood Count 8.4 Bedside Glucose 111 105 Medications Medications Current Medications Lorazepam (Ativan) 2 mg Q2H PRN IV RASS GOAL -2 TO -3; Start 07/27/16 at 17:30 Morphine Sulfate (morphine) 2 mg Q2H PRN IV PAIN LEVEL 4-7; Start 07/27/16 at 17 :30 Ondansetron HCl (Zofran Inj) 4 mg Q6H PRN IV NAUSEA AND/OR VOMITING; Start 07/27 at 17:30 Nitroglycerin (Nitroglycerin (Sl Tab) 0.4 Mg) 1 tab Q5M PRN SL CHEST PAIN; Start 07/27/16 at 17:30 Acetaminophen (Tylenol Liquid) 650 mg Q6H PRN PO PAIN LEVEL 1-3 OR FEVER; Start 07/27/16 at 17:30 Acetaminophen (Tylenol Tab) 650 mg Q6H PRN PO PAIN LEVEL 1-3 OR FEVER; Start at 17:30 Lorazepam (Ativan) 1 mg Q2H PRN IV ANXIETY; Start 07/27/16 at 17:30 Docusate Sodium (Colace) 100 mg Q12H PRN PO CONSTIPATION Last administered on 22:25; Admin Dose 100 MG; Start 07/27/16 at 17:30 Bisacodyl (Dulcolax Supp) 10 mg DAILY PRN [place] CONSTIPATION; Start 07/27/16 at 17: 30 Aspirin (Aspirin) 81 mg DAILY PO Last administered on 08/03/16 09:27; Admin Dose 81 MG; Start 07/28/16 at 09:00 Atorvastatin Calcium (Lipitor) 20 mg HS PO Last administered on 08/02/16 21:56 ; Admin Dose 20 MG; Start 07/27/16 at 21:00 Digoxin (Digoxin) 0.125 mg DAILY@13 PO Last administered on 08/02/16 14:04; Admin Dose 0.125 MG; Start 07/28/16 at 13:00 Sertraline HCl (Zoloft) 100 mg DAILY PO Last administered on 08/03/16 09:27; Admin Dose 100 MG; Start 07/28/16 at 09:00 Miscellaneous Information 1 ea NOTE XX ; Start 07/27/16 at 18:00 Glucose (Glutose) 15 gm Q15M PRN PO DECREASED GLUCOSE; Start 07/27/16 at 18:00 Glucose (Glutose) 22.5 gm Q15M PRN PO DECREASED GLUCOSE; Start 07/27/16 at 18:00 Dextrose (D50w Syringe) 25 ml Q15M PRN IV DECREASED GLUCOSE Last administered on 08/01/16 05:05; Admin Dose 25 ML; Start 07/27/16 at 18:00 Dextrose (D50w Syringe) 50 ml Q15M PRN IV DECREASED GLUCOSE; Start 07/27/16 at 18:00 Glucagon (Glucagen) 1 mg Q15M PRN IM DECREASED GLUCOSE; Start 07/27/16 at 18:00 Glucose (Glutose) 15 gm Q15M PRN BUCCAL DECREASED GLUCOSE Last administered on 08/01/16 01:14; Admin Dose 15 GM; Start 07/27/16 at 18:00 Metoprolol Tartrate (Lopressor) 25 mg BID PO Last administered on 08/02/16 22: 26; Admin Dose 25 MG; Start 07/27/16 at 21:00 Multivitamins Therapeutic (Theragran) 1 tab DAILY PO Last administered on 09:27; Admin Dose 1 TAB; Start 07/28/16 at 09:00 Insulin Aspart (Novolog Insulin Pen) NOVOLOG *MILD* ALGORI... Q4H SC Last administered on 08/02/16 22:35; Admin Dose 1 UNIT; Start 07/28/16 at 12:00 Montelukast Sodium (Singulair) 10 mg HS NGT Last administered on 08/02/16 21: 57; Admin Dose 10 MG; Start 07/28/16 at 21:00 Salmeterol Xinafoate/ Fluticasone (Advair 250/50 Diskus) 1 inh BID INH Last administered on 08/03/16 09:26; Admin Dose 1 INH; Start 07/29/16 at 21:00 Lorazepam (Ativan) 1 mg Q6H PRN PO ANXIETY Last administered on 07/29/16 23:41 ; Admin Dose 1 MG; Start 07/29/16 at 23:30 Famotidine (Pepcid) 20 mg QHS PO Last administered on 08/02/16 21:56; Admin Dose 20 MG; Start 08/01/16 at 21:00 Enoxaparin Sodium (Lovenox) 85 mg Q24H SC Last administered on 08/02/16 17:52 ; Admin Dose 85 MG; Start 08/01/16 at 17:30 Azithromycin (Zithromax) 500 mg DAILY PO Last administered on 08/03/16 09:27; Admin Dose 500 MG; Start 08/02/16 at 09:00 Guaifenesin/ Dextromethorphan (Robitussin Dm Liquid Cup) 10 ml Q4H PRN PO COUGH Last administered on 08/02/16 03:13; Admin Dose 10 ML; Start 08/02/16 at 03:00 Insulin Glargine (Lantus) 5 unit DAILY@20 SC Last administered on 08/02/16t 22: 02; Admin Dose 5 UNIT; Start 08/02/16 at 20:00 ESTEFANI BORREGO Aug 03, 2016 13:46
[2016-08-03] MEDS ORDERED: AL HYDROX/MG HYDROX/SIMETH 30 ML CUP PO PRN (14:00)
[2016-08-03] MEDS ORDERED: morphine 2 MG INJ IV PRN (14:00)
[2016-08-03] MEDS ORDERED: ACETAMINOPHEN 325 MG TAB PO PRN (14:00)
[2016-08-03] MEDS ORDERED: ONDANSETRON 4 MG INJ IV PRN (14:00)
--- NOTE | 2016-08-03 14:01 | CARRPT ---
DATE OF PROCEDURE: 08/03/2016 TYPE OF PROCEDURE: 1. Left heart catheterization. 2. Coronary angiography. 3. Femoral artery line. ATTENDING PHYSICIAN: Estefani Ramirez MD REFERRING PHYSICIAN: Kassandra Benites MD from the hospitalist service. INDICATION: Cardiac arrest and non-ST elevation myocardial infarction. TYPE OF ANESTHESIA: Conscious and local. BRIEF HISTORY: The patient is a 75-year-old male with a history of hypertension, prior valve replac ement, who initially presented with shortness of breath and subsequent cardiac arrest. The patient had positive troponins and was medically managed, able to be extubated and now has been brought to [facility] cardiac catheterization lab in order to assess the possibility of significant obstructive coronar y artery disease leading to non-ST elevation myocardial infarction and subsequent cardiac arrest. DESCRIPTION OF PROCEDURE: After informed consent was obtained, the patient was brought to the [facility] cardiac catheterization lab where initially his right groin was prepped and draped in the usual sterile fashion. Lidocaine 2% was infiltrated into the right groin in order to achieve adequate local anesthesia. With modified Seldinger technique, the right femoral artery was cannulated and a 6 [place] 20 cm sheath was placed due to severe tortuosity in the . At this [facility] we attempted to pass the catheter unsuccessfully through this long sheath and it was elected to terminate this access. Therefore, access was now gained in the left radial artery and a 6 [place] ar terial sheath was placed. A 6 [place] JL3.5 catheter was used to cannulate the left main coronary os tium. With contrast injection, multiple views of the left coronary arterial system were obtained. JL3.5 was removed over the guidewire and JR4 was used to cannulate the right coronary arterial ostiu m. With contrast injection, multiple views of the right coronary arterial system. JR4 was removed over the guidewire and as patient has aortic and mitral valve replacements, we did not cross the chalino ve. Subsequently, this completed the procedure. There were no noted complications. FINDINGS: CORONARY ANGIOGRAPHY: Left main 5 mm, no significant stenoses. Circumflex proximally is a 3.5 mm vessel and has an ostial 20% stenosis and a mid body 20% stenosis. The remainder of the circumflex is free of significant focal stenoses. There are distal branching obtuse marginals, very tortuous v essels, with no significant focal stenoses. The mid branching obtuse marginal 2 mm vessel with no s ignificant focal stenoses. The LAD proximally is a 3.5 mm vessel and is free of any significant foc al stenoses throughout its entirety, has an approximately 20% in the mid portion. There is a proxim al branching diagonal 2 mm, no significant focal stenoses. The right coronary artery proximally is a 3.5 mm vessel and in its mid portion had a 20% stenosis and is free of stenosis right before the b ifurcation in the PDA and posterolateral branch. PDA right coronary artery dominant vessel, 2 mm, no significant focal stenoses. A 2 mm posterolateral branch with luminal irregularities up to 20%. TOTAL FLUOROSCOPY TIME: 10.4 minutes. TOTAL CONTRAST: 50 mL. IMPRESSION: Very mild nonobstructive coronary artery disease. RECOMMENDATIONS: In light of procedure findings at this time would: 1. Maximize medical management. 2. Aggressive risk factor reduction. 3. The patient admitted to the telemetry floor for post-catheterization observation and continued m anagement of presenting symptoms. Dictated By: ESTEFANI SERNA/SUDHAKAR Conf#: [id number] DID#: [id number] CC: KASSANDRA BENITES MD;*EndCC*
--- NOTE | 2016-08-03 15:34 | PN ---
Date/Time of Note Date/Time of Note DATE: 08/03/16 TIME: 15:32 Assessment/Plan VTE Prophylaxis VTE Prophylaxis Intervention: contraindicated (bleeding risk sp procedure.) Lines/Catheters IV Catheter Type (from Nrs): Saline Lock Urinary Cath still in place: Yes Reason Cath still needed: urinary retention Assessment/Plan Chief Complaint/Hosp Course S: 75-yr-M admitted w cough, yellow expectoration, wheezing; was intubated for resp distress in er. Presently extubated, doing well. 08/01 positive dyspnea/edema. No chest pain/ fever. Awake alert. 08/02 feels weak; edema remains 08/03 sp cardiac cath-appears minimal disease O:vss; rate controlled a fib PE -deferred; in lab. A/P 1. Acute hypoxic respiratory failure; stable and improved. 2. Acute on chr decompensated diastolic CHF. Stable cont diuretics 3. 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 sp cath- minimal dz; hold metformin 4. NSTEMI vs demand ischemia 5. MVR; Coumadin after cath; cont Lovenox 6. Chr COPD w possible ac exacerbation 7. Past tobacco 8. Deconditioning; start PT, may need Snf 9. Cardiopulmonary arrest 10. Chr A Fib; hold Coumadin for probable cath. 11. Chr type 2 diabetes a1c=11 12. Medication nonadherence 13. Thrombocytopenia; stable Problems: Exam/Review of Systems Vital Signs Vitals Vital Signs Date Time Temp Pulse Resp B/P Pulse Ox O2 Delivery O2 Flow Rate FiO2 08/03/16 15:07 69 08/03/16 15:05 2.0 08/03/16 14:56 12 122/68 100 Nasal Cannula 08/03/16 07:47 97.9 08/02/16 20:22 21 Intake and Output 08/02/16 08/02/16 08/03/16 15:00 23:00 07:00 Intake Total 960 ml 200 ml Output Total 2000 ml 1125 ml Balance -1040 ml -925 ml Results Result Diagram: 08/03/16 0645 08/03/16 0643 Results 24 hrs Laboratory Tests Test 08/02/16 17:14 08/02/16 20:17 08/03/16 01:01 08/03/16 05:06 Bedside Glucose 141 170 146 132 Test 08/03/16 06:43 08/03/16 06:45 08/03/16 08:32 08/03/16 12:03 Anion Gap 11 Blood Urea Nitrogen 25 H Calcium Level 8.4 Carbon Dioxide Level 24 Chloride Level 108 Creatinine 1.06 Digoxin Level 0.9 L Glucose Level 111 Magnesium Level 1.9 Phosphorus Level 3.1 Potassium Level 4.4 Sodium Level 139 Basophils # 0.0 Basophils % 0.4 Blood Morphology Comment Eosinophils # 0.1 Eosinophils % 1.8 Hematocrit 29.3 L Hemoglobin 10.0 L Lymphocytes # 0.5 L Lymphocytes % 5.7 L Mean Corpuscular Hemoglobin 31.9 Mean Corpuscular Hemoglobin Concent 34.0 Mean Corpuscular Volume 93.8 Mean Platelet Volume 9.5 Monocytes # 0.6 Monocytes % 7.5 Neutrophils # 7.1 Neutrophils % 84.6 H Nucleated Red Blood Cells # 0.0 Nucleated Red Blood Cells % 0.0 Platelet Count 106 #L Red Blood Count 3.12 L Red Cell Distribution Width 15.7 H White Blood Count 8.4 Bedside Glucose 111 105 Medications Medications Current Medications Lorazepam (Ativan) 2 mg Q2H PRN IV RASS GOAL -2 TO -3; Start 07/27/16 at 17:30 Nitroglycerin (Nitroglycerin (Sl Tab) 0.4 Mg) 1 tab Q5M PRN SL CHEST PAIN; Start 07/27/16 at 17:30 Lorazepam (Ativan) 1 mg Q2H PRN IV ANXIETY; Start 07/27/16 at 17:30 Docusate Sodium (Colace) 100 mg Q12H PRN PO CONSTIPATION Last administered on 22:25; Admin Dose 100 MG; Start 07/27/16 at 17:30 Bisacodyl (Dulcolax Supp) 10 mg DAILY PRN [place] CONSTIPATION; Start 07/27/16 at 17: 30 Aspirin (Aspirin) 81 mg DAILY PO Last administered on 08/03/16 09:27; Admin Dose 81 MG; Start 07/28/16 at 09:00 Atorvastatin Calcium (Lipitor) 20 mg HS PO Last administered on 08/02/16 21:56 ; Admin Dose 20 MG; Start 07/27/16 at 21:00 Digoxin (Digoxin) 0.125 mg DAILY@13 PO Last administered on 08/02/16 14:04; Admin Dose 0.125 MG; Start 07/28/16 at 13:00 Sertraline HCl (Zoloft) 100 mg DAILY PO Last administered on 08/03/16 09:27; Admin Dose 100 MG; Start 07/28/16 at 09:00 Miscellaneous Information 1 ea NOTE XX ; Start 07/27/16 at 18:00 Glucose (Glutose) 15 gm Q15M PRN PO DECREASED GLUCOSE; Start 07/27/16 at 18:00 Glucose (Glutose) 22.5 gm Q15M PRN PO DECREASED GLUCOSE; Start 07/27/16 at 18:00 Dextrose (D50w Syringe) 25 ml Q15M PRN IV DECREASED GLUCOSE Last administered on 08/01/16 05:05; Admin Dose 25 ML; Start 07/27/16 at 18:00 Dextrose (D50w Syringe) 50 ml Q15M PRN IV DECREASED GLUCOSE; Start 07/27/16 at 18:00 Glucagon (Glucagen) 1 mg Q15M PRN IM DECREASED GLUCOSE; Start 07/27/16 at 18:00 Glucose (Glutose) 15 gm Q15M PRN BUCCAL DECREASED GLUCOSE Last administered on 08/01/16 01:14; Admin Dose 15 GM; Start 07/27/16 at 18:00 Metoprolol Tartrate (Lopressor) 25 mg BID PO Last administered on 08/02/16 22: 26; Admin Dose 25 MG; Start 07/27/16 at 21:00 Multivitamins Therapeutic (Theragran) 1 tab DAILY PO Last administered on 09:27; Admin Dose 1 TAB; Start 07/28/16 at 09:00 Insulin Aspart (Novolog Insulin Pen) NOVOLOG *MILD* ALGORI... Q4H SC Last administered on 08/02/16 22:35; Admin Dose 1 UNIT; Start 07/28/16 at 12:00 Montelukast Sodium (Singulair) 10 mg HS NGT Last administered on 08/02/16 21: 57; Admin Dose 10 MG; Start 07/28/16 at 21:00 Salmeterol Xinafoate/ Fluticasone (Advair 250/50 Diskus) 1 inh BID INH Last administered on 08/03/16 09:26; Admin Dose 1 INH; Start 07/29/16 at 21:00 Lorazepam (Ativan) 1 mg Q6H PRN PO ANXIETY Last administered on 07/29/16 23:41 ; Admin Dose 1 MG; Start 07/29/16 at 23:30 Famotidine (Pepcid) 20 mg QHS PO Last administered on 08/02/16 21:56; Admin Dose 20 MG; Start 08/01/16 at 21:00 Enoxaparin Sodium (Lovenox) 85 mg Q24H SC Last administered on 08/02/16 17:52 ; Admin Dose 85 MG; Start 08/01/16 at 17:30 Azithromycin (Zithromax) 500 mg DAILY PO Last administered on 08/03/16 09:27; Admin Dose 500 MG; Start 08/02/16 at 09:00 Guaifenesin/ Dextromethorphan (Robitussin Dm Liquid Cup) 10 ml Q4H PRN PO COUGH Last administered on 08/02/16 03:13; Admin Dose 10 ML; Start 08/02/16 at 03:00 Insulin Glargine (Lantus) 5 unit DAILY@20 SC Last administered on 08/02/16 22: 02; Admin Dose 5 UNIT; Start 08/02/16 at 20:00 Miscellaneous Information (* Miscellaneous Pharmacy Order) HOLD all METFORMIN ... ONCE XX ; Start 08/03/16 at 14:00; Stop 08/05/16 at 13:59 Acetaminophen (Tylenol Tab) 650 mg Q4H PRN PO NON-CARDIAC PAIN LEVEL (1-3); Start 08/03/16 at 14:00 Morphine Sulfate (morphine) 2 mg Q2H PRN IV FOR NON CARDIAC PAIN (4-10); Start 08/03/16 at 14:00 Al Hydrox/Mg Hydrox/Simethicone (Mag-Al Plus) 30 ml Q4H PRN PO GASTROINTESTINAL UPSET; Start 08/03/16 at 14:00 Ondansetron HCl 4 mg 4 mg Q4H PRN IV NAUSEA AND/OR VOMITING; Start 08/03/16 at 14:00 Sodium Chloride (NS) 1,000 ml @ 75 mls/hr [id number] IV ; Start 08/03/16 at 13:41 ; Stop 08/03/16 at 18:40 BOB PURDY MD Aug 03, 2016 15:34
--- NOTE | 2016-08-03 18:14 | CONS ---
Date/Time of Note Date/Time of Note DATE: 08/03/16 TIME: 18:10 Assessment/Plan Assessment/Plan Chief Complaint/Hosp Course 75-year-old gentleman who was admitted through the emergency room after having suffered an arrest at home. History is obtained from speaking to 2 of his daughters and review of the charts. Please note he has a pre-existing history of diabetes mellitus type 2. According to the family he had been on glipizide and previously admit had been on metformin which was discontinued in his diabetic control recently had not been good. Most notably in the events leading up to the arrest he had been having a cough with worsening of his underlying breathing difficulties for the last 3-4 weeks. His breathing was getting progressively worse and is using a nebulizer at home. His home medications included prednisone albuterol by hand-held nebulizer anticholinergic medications. He was not on Singulair and he was not on inhaled steroid as a controller medication. He does complain of significant dyspnea and subsequently suffered an arrest during the 1 minute that his daughter was out of the room obtaining her cell phone to call 911. Please see the reports for the events. Please note that the family reports he is not using any over- the-counter cold medications of any type Problems: (1) Diastolic dysfunction with heart failure Status: Chronic Comment: He has stabilized. Rate control will be the main issue here. Usage of the beta-blockade is limited by his significant lung disease. In addition please note that he has sleep apnea that has not yet been formally diagnosed Qualifiers: Heart failure chronicity: chronic Qualified Code: I50.32 - Chronic diastolic heart failure (2) COPD with asthma Status: Chronic Comment: He has improved with traditional treatments. I believe he would do well to have evaluation and treatment of obstructive sleep apnea (3) T2DM (type 2 diabetes mellitus) Status: Chronic Comment: Controlled although is off of his metformin right now after having angiographic dye for angiography. Please note the angiography demonstrated non- obstructive coronary disease i.e. medical management Qualifiers: Diabetes mellitus complication status: with unspecified complications Diabetes mellitus mcc insulin use: without mcc use Qualified Code : E11.8 - Type 2 diabetes mellitus with complication, without long-term current use of insulin (4) HTN (hypertension) Status: Acute Comment: Adequate control Qualifiers: Hypertension type: essential hypertension Qualified Code: I10 - Essential hypertension (5) BPH (benign prostatic hypertrophy) Status: Acute Comment: Noted and on treatment Qualifiers: Prostatic enlargement morphology: unspecified morphology Lower urinary tract symptom presence: symptoms absent Qualified Code: N40.0 - Benign prostatic hyperplasia without lower urinary tract symptoms, unspecified morphology Consultation Date/Type/Reason Admit Date/Time Jul 27, 2016 at 17:13 Initial Consult Date 07/28/16 Type of Consultation: Endocrinology Reason for Consultation Diabetes mellitus type 2; asthmatic COPD with respiratory arrest leading to cardiac arrest Referring Provider: ERICA GONZALEZ MD 24 HR Interval Summary Constitutional: no complaints Exam/Review of Systems Vital Signs Vitals Vital Signs Date Time Temp Pulse Resp B/P Pulse Ox O2 Delivery O2 Flow Rate FiO2 08/03/16 18:03 98.5 77 20 111/63 99 08/03/16 18:00 Nasal Cannula 2.0 08/02/16 20:22 21 Intake and Output 08/02/16 08/02/16 08/03/16 15:00 23:00 07:00 Intake Total 960 ml 200 ml Output Total 2000 ml 1125 ml Balance -1040 ml -925 ml Exam Patient is really asleep. He has obvious obstructive sleep apnea Constitutional: alert Neck: non-tender, supple Respiratory: diminished breath sounds, other (While asleep snoring with apneic spells), wheezing Cardiovascular: nl pulses, regular rate and rhythm Gastrointestinal: nl liver, spleen, non-tender, soft Results Result Diagram: 08/03/16 0645 08/03/16 0643 Results 24 hrs Laboratory Tests Test 08/02/16 20:17 08/03/16 01:01 08/03/16 05:06 08/03/16 06:43 Bedside Glucose 170 146 132 Anion Gap 11 Blood Urea Nitrogen 25 H Calcium Level 8.4 Carbon Dioxide Level 24 Chloride Level 108 Creatinine 1.06 Digoxin Level 0.9 L Glucose Level 111 Magnesium Level 1.9 Phosphorus Level 3.1 Potassium Level 4.4 Sodium Level 139 Test 08/03/16 06:45 08/03/16 08:32 08/03/16 12:03 08/03/16 15:43 Basophils # 0.0 Basophils % 0.4 Blood Morphology Comment Eosinophils # 0.1 Eosinophils % 1.8 Hematocrit 29.3 L Hemoglobin 10.0 L Lymphocytes # 0.5 L Lymphocytes % 5.7 L Mean Corpuscular Hemoglobin 31.9 Mean Corpuscular Hemoglobin Concent 34.0 Mean Corpuscular Volume 93.8 Mean Platelet Volume 9.5 Monocytes # 0.6 Monocytes % 7.5 Neutrophils # 7.1 Neutrophils % 84.6 H Nucleated Red Blood Cells # 0.0 Nucleated Red Blood Cells % 0.0 Platelet Count 106 #L Red Blood Count 3.12 L Red Cell Distribution Width 15.7 H White Blood Count 8.4 Bedside Glucose 111 105 119 Medications Medications Current Medications Lorazepam (Ativan) 2 mg Q2H PRN IV RASS GOAL -2 TO -3; Start 07/27/16 at 17:30 Nitroglycerin (Nitroglycerin (Sl Tab) 0.4 Mg) 1 tab Q5M PRN SL CHEST PAIN; Start 07/27/16 at 17:30 Lorazepam (Ativan) 1 mg Q2H PRN IV ANXIETY; Start 07/27/16 at 17:30 Docusate Sodium (Colace) 100 mg Q12H PRN PO CONSTIPATION Last administered on 22:25; Admin Dose 100 MG; Start 07/27/16 at 17:30 Bisacodyl (Dulcolax Supp) 10 mg DAILY PRN [place] CONSTIPATION; Start 07/27/16 at 17: 30 Aspirin (Aspirin) 81 mg DAILY PO Last administered on 08/03/16 09:27; Admin Dose 81 MG; Start 07/28/16 at 09:00 Atorvastatin Calcium (Lipitor) 20 mg HS PO Last administered on 08/02/16 21:56 ; Admin Dose 20 MG; Start 07/27/16 at 21:00 Digoxin (Digoxin) 0.125 mg DAILY@13 PO Last administered on 08/02/16 14:04; Admin Dose 0.125 MG; Start 07/28/16 at 13:00 Sertraline HCl (Zoloft) 100 mg DAILY PO Last administered on 08/03/16 09:27; Admin Dose 100 MG; Start 07/28/16 at 09:00 Miscellaneous Information 1 ea NOTE XX ; Start 07/27/16 at 18:00 Glucose (Glutose) 15 gm Q15M PRN PO DECREASED GLUCOSE; Start 07/27/16 at 18:00 Glucose (Glutose) 22.5 gm Q15M PRN PO DECREASED GLUCOSE; Start 07/27/16 at 18:00 Dextrose (D50w Syringe) 25 ml Q15M PRN IV DECREASED GLUCOSE Last administered on 08/01/16 05:05; Admin Dose 25 ML; Start 07/27/16 at 18:00 Dextrose (D50w Syringe) 50 ml Q15M PRN IV DECREASED GLUCOSE; Start 07/27/16 at 18:00 Glucagon (Glucagen) 1 mg Q15M PRN IM DECREASED GLUCOSE; Start 07/27/16 at 18:00 Glucose (Glutose) 15 gm Q15M PRN BUCCAL DECREASED GLUCOSE Last administered on 08/01/16 01:14; Admin Dose 15 GM; Start 07/27/16 at 18:00 Metoprolol Tartrate (Lopressor) 25 mg BID PO Last administered on 08/02/16 22: 26; Admin Dose 25 MG; Start 07/27/16 at 21:00 Multivitamins Therapeutic (Theragran) 1 tab DAILY PO Last administered on 09:27; Admin Dose 1 TAB; Start 07/28/16 at 09:00 Insulin Aspart (Novolog Insulin Pen) NOVOLOG *MILD* ALGORI... Q4H SC Last administered on 08/02/16 22:35; Admin Dose 1 UNIT; Start 07/28/16 at 12:00 Montelukast Sodium (Singulair) 10 mg HS NGT Last administered on 08/02/16 21: 57; Admin Dose 10 MG; Start 07/28/16 at 21:00 Salmeterol Xinafoate/ Fluticasone (Advair 250/50 Diskus) 1 inh BID INH Last administered on 08/03/16 09:26; Admin Dose 1 INH; Start 07/29/16 at 21:00 Lorazepam (Ativan) 1 mg Q6H PRN PO ANXIETY Last administered on 07/29/16 23:41 ; Admin Dose 1 MG; Start 07/29/16 at 23:30 Famotidine (Pepcid) 20 mg QHS PO Last administered on 08/02/16 21:56; Admin Dose 20 MG; Start 08/01/16 at 21:00 Enoxaparin Sodium (Lovenox) 85 mg Q24H SC Last administered on 08/02/16 17:52 ; Admin Dose 85 MG; Start 2/13/17 at 17:30 Azithromycin (Zithromax) 500 mg DAILY PO Last administered on 08/03/16 09:27; Admin Dose 500 MG; Start 08/02/16 at 09:00 Guaifenesin/ Dextromethorphan (Robitussin Dm Liquid Cup) 10 ml Q4H PRN PO COUGH Last administered on 08/02/16 03:13; Admin Dose 10 ML; Start 08/02/16 at 03:00 Insulin Glargine (Lantus) 5 unit DAILY@20 SC Last administered on 08/02/16 22: 02; Admin Dose 5 UNIT; Start 08/02/16 at 20:00 Miscellaneous Information (* Miscellaneous Pharmacy Order) HOLD all METFORMIN ... ONCE XX ; Start 08/03/16 at 14:00; Stop 08/05/16 at 13:59 Acetaminophen (Tylenol Tab) 650 mg Q4H PRN PO NON-CARDIAC PAIN LEVEL (1-3); Start 08/03/16 at 14:00 Morphine Sulfate (morphine) 2 mg Q2H PRN IV FOR NON CARDIAC PAIN (4-10); Start 08/03/16 at 14:00 Al Hydrox/Mg Hydrox/Simethicone (Mag-Al Plus) 30 ml Q4H PRN PO GASTROINTESTINAL UPSET; Start 08/03/16 at 14:00 Ondansetron HCl 4 mg 4 mg Q4H PRN IV NAUSEA AND/OR VOMITING; Start 08/03/16 at 14:00 Sodium Chloride (NS) 1,000 ml @ 75 mls/hr [id number] IV ; Start 08/03/16 at 13:41 ; Stop 08/03/16 at 18:40 Warfarin Sodium (Coumadin) 7.5 mg DAILY@17 NGT ; Start 08/03/16 at 17:00 LEONARDA STEELE MD Aug 03, 2016 18:14
[2016-08-03] MEDS: WARFARIN 7.5 MG TAB NGT SCH (21:43)
[2016-08-03] MEDS: MONTELUKAST 10 MG TAB NGT SCH (21:44)
[2016-08-03] MEDS: ATORVASTATIN 20 MG TAB PO SCH (21:45)
[2016-08-03] MEDS: FAMOTIDINE 20 MG TAB PO SCH (21:45)
[2016-08-03] MEDS: INSULIN GLARGINE [LANtus] 3 ML PEN SC SCH (21:46)
[2016-08-03] MEDS: ENOXAPARIN 100 MG/ML SYG SC SCH (21:48)
[2016-08-04] VITALS (12 sets, daily range): BP systolic 89–121; BP diastolic 51–67; PULSE 66–85; RESP 18–20
[2016-08-04] MEDS: ALBUTEROL/IPRATROPIUM (NEB) 3 ML AMP HHN SCH ×4 (01:01→23:41)
[2016-08-04] MEDS: GUAIFENESIN/DM 5ML CUP PO PRN ×2 (01:21→11:10)
[2016-08-04] MEDS: INSULIN ASPART [NOVOLOG] 3 ML PEN SC SCH ×6 (04:00→22:54)
[2016-08-04 08:35] LABS: INR 1.26; PROTIME 15.9 Sec (12.2-14.2); PT RATIO 1.2
[2016-08-04 08:47] LABS: POTASSIUM 3.7 mmol/L (3.5-5.1)
[2016-08-04 08:49] LABS: CREATININE 0.97 mg/dl (0.61-1.24)
[2016-08-04 08:50] LABS: CALCIUM 7.9 mg/dl (8.4-10.2); MAGNESIUM 1.9 mg/dl (1.7-2.5); PHOSPHORUS 2.6 mg/dl (2.5-4.9)
[2016-08-04] MEDS: METOPROLOL 25 MG TAB PO SCH ×2 (09:00→22:00)
[2016-08-04] MEDS: AZITHROMYCIN 250 MG TAB PO SCH (09:29)
[2016-08-04] MEDS: ASPIRIN 81 MG TAB PO SCH (09:29)
[2016-08-04] MEDS: SERTRALINE 100 MG TAB PO SCH (09:31)
[2016-08-04] MEDS: SALMETEROL/FLUTICASONE 250/50 INHA INH SCH ×2 (09:31→21:58)
[2016-08-04] MEDS: MULTIVITAMINS THERAPEUTIC TAB PO SCH (09:31)
--- NOTE | 2016-08-04 10:59 | CONS ---
Date/Time of Note Date/Time of Note DATE: 08/04/16 TIME: 10:57 Assessment/Plan Assessment/Plan Chief Complaint/Hosp Course 75-year-old gentleman who was admitted through the emergency room after having suffered an arrest at home. History is obtained from speaking to 2 of his daughters and review of the charts. Please note he has a pre-existing history of diabetes mellitus type 2. According to the family he had been on glipizide and previously admit had been on metformin which was discontinued in his diabetic control recently had not been good. Most notably in the events leading up to the arrest he had been having a cough with worsening of his underlying breathing difficulties for the last 3-4 weeks. His breathing was getting progressively worse and is using a nebulizer at home. His home medications included prednisone albuterol by hand-held nebulizer anticholinergic medications. He was not on Singulair and he was not on inhaled steroid as a controller medication. He does complain of significant dyspnea and subsequently suffered an arrest during the 1 minute that his daughter was out of the room obtaining her cell phone to call 911. Please see the reports for the events. Please note that the family reports he is not using any over- the-counter cold medications of any type Problems: (1) COPD with asthma Status: Chronic Comment: Patient is doing relatively well. Please note as recorded yesterday I believe he has sleep apnea that has not yet been diagnosed and needs to be evaluated (2) Diastolic dysfunction with heart failure Status: Chronic Comment: Stable on current medication regimen. Qualifiers: Heart failure chronicity: chronic Qualified Code: I50.32 - Chronic diastolic heart failure (3) Atrial fibrillation with RVR Status: Chronic Comment: Stable on current regimen (4) T2DM (type 2 diabetes mellitus) Status: Chronic Comment: Blood sugar control is been excellent. 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 airline manager insulin use: without airline manager use Qualified Code : E11.8 - Type 2 diabetes mellitus with complication, without long-term current use of insulin Consultation Date/Type/Reason Admit Date/Time Jul 27, 2016 at 17:13 Initial Consult Date 2/9/17 Type of Consultation: Endocrinology Referring Provider: ERICA GONZALEZ MD 24 HR Interval Summary Constitutional: no complaints Exam/Review of Systems Vital Signs Vitals Vital Signs Date Time Temp Pulse Resp B/P Pulse Ox O2 Delivery O2 Flow Rate FiO2 08/04/16 08:23 66 08/04/16 08:07 98.0 20 101/56 97 08/04/16 04:57 2.0 08/04/16 04:00 Room Air 08/04/16 01:03 28 Intake and Output 08/03/16 08/03/16 08/04/16 15:00 23:00 07:00 Intake Total 100 ml 75 ml Output Total 400 ml 525 ml Balance 100 ml -400 ml -450 ml Exam Constitutional: alert, oriented Respiratory: clear to auscultation, diminished breath sounds Results Result Diagram: 08/03/16 0645 08/04/16 0705 Results 24 hrs Laboratory Tests Test 08/03/16 12:03 08/03/16 15:43 08/03/16 20:44 08/04/16 00:48 Bedside Glucose 105 119 119 116 Test 08/04/16 05:24 08/04/16 07:05 08/04/16 08:08 Bedside Glucose 94 81 Anion Gap 11 Blood Urea Nitrogen 18 Calcium Level 7.9 L Carbon Dioxide Level 25 Chloride Level 106 Creatinine 0.97 Glucose Level 76 INR International Normalized Ratio 1.26 Magnesium Level 1.9 Phosphorus Level 2.6 Potassium Level 3.7 Prothrombin Time 15.9 H Prothrombin Time Ratio 1.2 Sodium Level 138 Medications Medications Current Medications Lorazepam (Ativan) 2 mg Q2H PRN IV RASS GOAL -2 TO -3; Start 07/27/16 at 17:30 Nitroglycerin (Nitroglycerin (Sl Tab) 0.4 Mg) 1 tab Q5M PRN SL CHEST PAIN; Start 07/27/16 at 17:30 Lorazepam (Ativan) 1 mg Q2H PRN IV ANXIETY; Start 07/27/16 at 17:30 Docusate Sodium (Colace) 100 mg Q12H PRN PO CONSTIPATION Last administered on t 22:25; Admin Dose 100 MG; Start 07/27/16 at 17:30 Bisacodyl (Dulcolax Supp) 10 mg DAILY PRN [place] CONSTIPATION; Start 07/27/16 at 17: 30 Aspirin (Aspirin) 81 mg DAILY PO Last administered on 08/04/16 09:29; Admin Dose 81 MG; Start 07/28/16 at 09:00 Atorvastatin Calcium (Lipitor) 20 mg HS PO Last administered on 08/03/16 21:45 ; Admin Dose 20 MG; Start 07/27/16 at 21:00 Digoxin (Digoxin) 0.125 mg DAILY@13 PO Last administered on 08/02/16 14:04; Admin Dose 0.125 MG; Start 07/28/16 at 13:00 Sertraline HCl (Zoloft) 100 mg DAILY PO Last administered on 08/04/16 09:31; Admin Dose 100 MG; Start 07/28/16 at 09:00 Miscellaneous Information 1 ea NOTE XX ; Start 07/27/16 at 18:00 Glucose (Glutose) 15 gm Q15M PRN PO DECREASED GLUCOSE; Start 07/27/16 at 18:00 Glucose (Glutose) 22.5 gm Q15M PRN PO DECREASED GLUCOSE; Start 07/27/16 at 18:00 Dextrose (D50w Syringe) 25 ml Q15M PRN IV DECREASED GLUCOSE Last administered on 08/01/16 05:05; Admin Dose 25 ML; Start 07/27/16 at 18:00 Dextrose (D50w Syringe) 50 ml Q15M PRN IV DECREASED GLUCOSE; Start 07/27/16 at 18:00 Glucagon (Glucagen) 1 mg Q15M PRN IM DECREASED GLUCOSE; Start 07/27/16 at 18:00 Glucose (Glutose) 15 gm Q15M PRN BUCCAL DECREASED GLUCOSE Last administered on 08/01/16 01:14; Admin Dose 15 GM; Start 07/27/16 at 18:00 Metoprolol Tartrate (Lopressor) 25 mg BID PO Last administered on 08/03/16 21: 44; Admin Dose 25 MG; Start 07/27/16 at 21:00 Multivitamins Therapeutic (Theragran) 1 tab DAILY PO Last administered on 09:31; Admin Dose 1 TAB; Start 07/28/16 at 09:00 Insulin Aspart (Novolog Insulin Pen) NOVOLOG *MILD* ALGORI... Q4H SC Last administered on 08/02/16 22:35; Admin Dose 1 UNIT; Start 07/28/16 at 12:00 Montelukast Sodium (Singulair) 10 mg HS NGT Last administered on 08/03/16 21: 44; Admin Dose 10 MG; Start 07/28/16 at 21:00 Salmeterol Xinafoate/ Fluticasone (Advair 250/50 Diskus) 1 inh BID INH Last administered on 08/04/16 09:31; Admin Dose 1 INH; Start 07/29/16 at 21:00 Lorazepam (Ativan) 1 mg Q6H PRN PO ANXIETY Last administered on 07/29/16 23:41 ; Admin Dose 1 MG; Start 07/29/16 at 23:30 Famotidine (Pepcid) 20 mg QHS PO Last administered on 08/03/16 21:45; Admin Dose 20 MG; Start 08/01/16 at 21:00 Enoxaparin Sodium (Lovenox) 85 mg Q24H SC Last administered on 08/03/16 21:48 ; Admin Dose 85 MG; Start 08/01/16 at 17:30 Azithromycin (Zithromax) 500 mg DAILY PO Last administered on 08/04/16 09:29; Admin Dose 500 MG; Start 08/02/16 at 09:00 Guaifenesin/ Dextromethorphan (Robitussin Dm Liquid Cup) 10 ml Q4H PRN PO COUGH Last administered on 08/04/16 01:21; Admin Dose 10 ML; Start 08/02/16 at 03:00 Insulin Glargine (Lantus) 5 unit DAILY@20 SC Last administered on 08/03/16 21: 46; Admin Dose 5 UNIT; Start 08/02/16 at 20:00 Miscellaneous Information (* Miscellaneous Pharmacy Order) HOLD all METFORMIN ... ONCE XX ; Start 08/03/16 at 14:00; Stop 08/05/16 at 13:59 Acetaminophen (Tylenol Tab) 650 mg Q4H PRN PO NON-CARDIAC PAIN LEVEL (1-3); Start 08/03/16 at 14:00 Morphine Sulfate (morphine) 2 mg Q2H PRN IV FOR NON CARDIAC PAIN (4-10) Last administered on 08/04/16 01:23; Admin Dose 2 MG; Start 08/03/16 at 14:00 Al Hydrox/Mg Hydrox/Simethicone (Mag-Al Plus) 30 ml Q4H PRN PO GASTROINTESTINAL UPSET; Start 08/03/16 at 14:00 Ondansetron HCl (Zofran Inj) 4 mg Q4H PRN IV NAUSEA AND/OR VOMITING; Start at 14:00 Warfarin Sodium (Coumadin) 7.5 mg DAILY@17 NGT Last administered on 08/03/16t 21:43; Admin Dose 7.5 MG; Start 08/03/16 at 17:00 LEONARDA STEELE MD Aug 04, 2016 10:59
--- NOTE | 2016-08-04 12:41 | PN ---
DATE: 08/04/2016 The patient remains stable this morning. VITAL SIGNS: Temperature 98, pulse is 69, blood pressure 116/63, O2 saturation 96% on 2 liters. NECK: Supple. No JVD or lymphadenopathy. CARDIAC: S1, S2, no added sounds or murmurs. CHEST: Diminished air entry bilaterally but no rales or wheezes. ABDOMEN: Soft, nontender. No guarding or rebound. EXTREMITIES: No cyanosis, clubbing, edema. NEUROLOGIC: Generalized weakness. LABORATORY DATA: Chemistry within normal limits. IMPRESSION AND PLAN: 1. Status post hypoxemic respiratory failure. 2. Resolving congestive cardiac failure. 3. Mitral valve replacement on anticoagulation. 4. Significant deconditioning. 5. History of cardiopulmonary arrest. Patient should: 1. Continue with aspiration precautions. 2. Continue pulmonary toilet. 3. Continue glycemic management per endocrinology. 4. Consider placement at [facility] facility. Dictated By: NASH MCKEON/SUDHAKAR Conf#: [id number] DID#: [id number]
[2016-08-04] MEDS: DIGOXIN 0.125 MG TAB PO SCH (13:29)
--- NOTE | 2016-08-04 16:54 | PN ---
Date/Time of Note Date/Time of Note DATE: 08/04/16 TIME: 16:52 Assessment/Plan VTE Prophylaxis VTE Prophylaxis Intervention: LMWH Lines/Catheters IV Catheter Type (from Nrs): Peripheral IV Urinary Cath still in place: Yes Reason Cath still needed: urinary retention Assessment/Plan Chief Complaint/Hosp Course S: 75-yr-M admitted w cough, yellow expectoration, wheezing; was intubated for resp distress in er. Presently extubated, doing well. 08/01 positive dyspnea/edema. No chest pain/ fever. Awake alert. 08/02 feels weak; edema remains 08/03 sp cardiac cath-appears minimal disease 08/04 no events. Still feels weak. O:vss; rate controlled a fib PE No pallor JVD irreg, no murmur rub gallop CTA B Benign Edema present but less A/P 1. Acute hypoxic respiratory failure; stable, resolved. 2. Acute on chr decompensated diastolic CHF. Stable cont diuretics 3. 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 sp cath- minimal dz; hold metformin 4. NSTEMI vs demand ischemia 5. MVR & AVR; Coumadin restarted; cont Lovenox 6. Chr COPD w possible ac exacerbation; improved 7. Past tobacco 8. Deconditioning; start PT, may need Snf vs acute rehab 9. Cardiopulmonary arrest 10. Chr A Fib; on Coumadin 11. Chr type 2 diabetes a1c=11 12. Medication nonadherence 13. Thrombocytopenia; stable/follow Problems: Exam/Review of Systems Vital Signs Vitals Vital Signs Date Time Temp Pulse Resp B/P Pulse Ox O2 Delivery O2 Flow Rate FiO2 08/04/16 15:00 98.0 86 20 121/67 97 08/04/16 12:58 2.0 08/04/16 12:51 Nasal Cannula 08/04/16 01:03 28 Intake and Output 08/03/16 08/03/16 08/04/16 15:00 23:00 07:00 Intake Total 100 ml 75 ml Output Total 400 ml 525 ml Balance 100 ml -400 ml -450 ml Results Result Diagram: 08/03/16 0645 08/04/16 0705 Results 24 hrs Laboratory Tests Test 08/03/16 20:44 08/04/16 00:48 08/04/16 05:24 08/04/16 07:05 Bedside Glucose 119 116 94 Anion Gap 11 Blood Urea Nitrogen 18 Calcium Level 7.9 L Carbon Dioxide Level 25 Chloride Level 106 Creatinine 0.97 Glucose Level 76 INR International Normalized Ratio 1.26 Magnesium Level 1.9 Phosphorus Level 2.6 Potassium Level 3.7 Prothrombin Time 15.9 H Prothrombin Time Ratio 1.2 Sodium Level 138 Test 08/04/16 08:08 08/04/16 11:49 Bedside Glucose 81 122 Medications Medications Current Medications Lorazepam (Ativan) 2 mg Q2H PRN IV RASS GOAL -2 TO -3; Start 07/27/16 at 17:30 Nitroglycerin (Nitroglycerin (Sl Tab) 0.4 Mg) 1 tab Q5M PRN SL CHEST PAIN; Start 07/27/16 at 17:30 Lorazepam (Ativan) 1 mg Q2H PRN IV ANXIETY; Start 07/27/16 at 17:30 Docusate Sodium (Colace) 100 mg Q12H PRN PO CONSTIPATION Last administered on 22:25; Admin Dose 100 MG; Start 07/27/16 at 17:30 Bisacodyl (Dulcolax Supp) 10 mg DAILY PRN [place] CONSTIPATION; Start 07/27/16 at 17: 30 Aspirin (Aspirin) 81 mg DAILY PO Last administered on 08/04/16 09:29; Admin Dose 81 MG; Start 07/28/16 at 09:00 Atorvastatin Calcium (Lipitor) 20 mg HS PO Last administered on 08/03/16 21:45 ; Admin Dose 20 MG; Start 07/27/16 at 21:00 Digoxin (Digoxin) 0.125 mg DAILY@13 PO Last administered on 08/04/16 13:29; Admin Dose 0.125 MG; Start 07/28/16 at 13:00 Sertraline HCl (Zoloft) 100 mg DAILY PO Last administered on 08/04/16 09:31; Admin Dose 100 MG; Start 07/28/16 at 09:00 Miscellaneous Information 1 ea NOTE XX ; Start 07/27/16 at 18:00 Glucose (Glutose) 15 gm Q15M PRN PO DECREASED GLUCOSE; Start 07/27/16 at 18:00 Glucose (Glutose) 22.5 gm Q15M PRN PO DECREASED GLUCOSE; Start 07/27/16 at 18:00 Dextrose (D50w Syringe) 25 ml Q15M PRN IV DECREASED GLUCOSE Last administered on 08/01/16 05:05; Admin Dose 25 ML; Start 07/27/16 at 18:00 Dextrose (D50w Syringe) 50 ml Q15M PRN IV DECREASED GLUCOSE; Start 07/27/16 at 18:00 Glucagon (Glucagen) 1 mg Q15M PRN IM DECREASED GLUCOSE; Start 07/27/16 at 18:00 Glucose (Glutose) 15 gm Q15M PRN BUCCAL DECREASED GLUCOSE Last administered on 08/01/16 01:14; Admin Dose 15 GM; Start 07/27/16 at 18:00 Metoprolol Tartrate (Lopressor) 25 mg BID PO Last administered on 08/03/16 21: 44; Admin Dose 25 MG; Start 07/27/16 at 21:00 Multivitamins Therapeutic (Theragran) 1 tab DAILY PO Last administered on 09:31; Admin Dose 1 TAB; Start 07/28/16 at 09:00 Insulin Aspart (Novolog Insulin Pen) NOVOLOG *MILD* ALGORI... Q4H SC Last administered on 08/02/16 22:35; Admin Dose 1 UNIT; Start 07/28/16 at 12:00 Montelukast Sodium (Singulair) 10 mg HS NGT Last administered on 08/03/16 21: 44; Admin Dose 10 MG; Start 07/28/16 at 21:00 Salmeterol Xinafoate/ Fluticasone (Advair 250/50 Diskus) 1 inh BID INH Last administered on 08/04/16 09:31; Admin Dose 1 INH; Start 07/29/16 at 21:00 Lorazepam (Ativan) 1 mg Q6H PRN PO ANXIETY Last administered on 07/29/16 23:41 ; Admin Dose 1 MG; Start 07/29/16 at 23:30 Famotidine (Pepcid) 20 mg QHS PO Last administered on 08/03/16 21:45; Admin Dose 20 MG; Start 08/01/16 at 21:00 Enoxaparin Sodium (Lovenox) 85 mg Q24H SC Last administered on 08/03/16 21:48 ; Admin Dose 85 MG; Start 08/01/16 at 17:30 Azithromycin (Zithromax) 500 mg DAILY PO Last administered on 08/04/16 09:29; Admin Dose 500 MG; Start 08/02/16 at 09:00 Guaifenesin/ Dextromethorphan (Robitussin Dm Liquid Cup) 10 ml Q4H PRN PO COUGH Last administered on 08/04/16 11:10; Admin Dose 10 ML; Start 08/02/16 at 03:00 Insulin Glargine (Lantus) 5 unit DAILY@20 SC Last administered on 08/03/16 21: 46; Admin Dose 5 UNIT; Start 08/02/16 at 20:00 Miscellaneous Information (* Miscellaneous Pharmacy Order) HOLD all METFORMIN ... ONCE XX ; Start 08/03/16 at 14:00; Stop 08/05/16 at 13:59 Acetaminophen (Tylenol Tab) 650 mg Q4H PRN PO NON-CARDIAC PAIN LEVEL (1-3); Start 08/03/16 at 14:00 Morphine Sulfate (morphine) 2 mg Q2H PRN IV FOR NON CARDIAC PAIN (4-10) Last administered on 08/04/16 01:23; Admin Dose 2 MG; Start 08/03/16 at 14:00 Al Hydrox/Mg Hydrox/Simethicone (Mag-Al Plus) 30 ml Q4H PRN PO GASTROINTESTINAL UPSET; Start 08/03/16 at 14:00 Ondansetron HCl (Zofran Inj) 4 mg Q4H PRN IV NAUSEA AND/OR VOMITING; Start at 14:00 Warfarin Sodium (Coumadin) 7.5 mg DAILY@17 NGT Last administered on 08/03/16 21:43; Admin Dose 7.5 MG; Start 08/03/16 at 17:00 BOB PURDY MD Aug 04, 2016 16:54
--- NOTE | 2016-08-04 17:09 | PDOCDIS ---
Discharge Instructions DIAGNOSIS Discharge Diagnosis: sepsis CONDITION Patient Condition: Stable HOME CARE INSTRUCTIONS: Special Diet: Cardiac, carb controlled ACTIVITY: Activity Restrictions: Slowly Increase Activity Do not Drive FOLLOW UP/APPOINTMENTS Appointments Dr Piedra -1wk Dr Ramirez 3wBOB Leblanc MD Aug 04, 2016 17:09
[2016-08-04] MEDS ORDERED: LACT1CAP57 PO (17:12)
[2016-08-04] MEDS ORDERED: MONT10TA24 NGT (17:12)
[2016-08-04] MEDS ORDERED: AZIT250T6 PO (17:12)
[2016-08-04] MEDS ORDERED: COU75 NGT (17:12)
[2016-08-04] MEDS ORDERED: ENOX100D2 SC (17:12)
[2016-08-04] MEDS ORDERED: FUROSEMIDE 40 MG INJ IV ONE (17:30)
--- NOTE | 2016-08-04 18:01 | CONS ---
Date/Time of Note Date/Time of Note DATE: 08/04/16 TIME: 17:59 Assessment/Plan Assessment/Plan Chief Complaint/Hosp Course IMPRESSION: 1. Cardiac arrest. Assess etiology.-Now s/p LHC with no sig obstructive disease 2. Positive troponin/non-ST elevation myocardial infarction. Assess significance. Assess for true acute coronary syndrome.-now downtrending/NL EF by echo 3. Abnormal electrocardiogram after arrest, with ST depressions. 4. Tachyarrhythmia. 5. History of mitral valve replacement.-bioprosthetic by echo 6. Hypotension, borderline.-improved/off presssors/stable 7. Diabetes mellitus with hyperglycemia. 8. Renal failure, improving. 9. Coagulopathy-improved 10. Anemia. 11. Thrombocytopenia-improving 12.CHF-diastolic acute on likely chronic 14. AF-started overnight 07/31 [facility] PAF . Now on lovenox Recc: -Tele monitoring -Continue digoxin/statin/asa -Follow volume status/BP closely -Continue abx's/steroids/bronchodilators -BB as tolerated only -Back on coumadin/follow INR closely Problems: Consultation Date/Type/Reason Admit Date/Time Jul 27, 2016 at 17:13 Initial Consult Date 07/28/16 Type of Consultation: Cardiology Reason for Consultation cardiac arrest Referring Provider: ERICA GONZALEZ MD Exam/Review of Systems Vital Signs Vitals Vital Signs Date Time Temp Pulse Resp B/P Pulse Ox O2 Delivery O2 Flow Rate FiO2 08/04/16 16:55 81 08/04/16 15:00 98.0 20 121/67 97 08/04/16 12:58 2.0 08/04/16 12:51 Nasal Cannula 08/04/16 01:03 28 Intake and Output 08/03/16 08/03/16 08/04/16 15:00 23:00 07:00 Intake Total 100 ml 75 ml Output Total 400 ml 525 ml Balance 100 ml -400 ml -450 ml Exam Review of Systems: CONSTITUTIONAL: No fevers, chills. PULMONARY: No sob CARDIOVASCULAR: No chest pain/palpitations GASTROINTESTINAL: No nausea/vomiting. GENITOURINARY: No hematuria/dysuria. MUSCULOSKELETAL: No myagias/arthalgias. PSYCHIATRIC: The patient denies depression. NEUROLOGIC: No weakness Constitutional: alert, oriented Psych: no complaints Head: normocephalic ENMT: mucosa pink and moist Neck: jvd (9 cm water), supple Respiratory: diminished breath sounds (at bases/B) Cardiovascular: regular rate and rhythm Gastrointestinal: non-tender, soft Musculoskeletal: muscle tone (normal) Extremities: edema (bilateral) 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: other (No focal deficits) Results Result Diagram: 08/03/16 0645 08/04/16 0705 Results 24 hrs Laboratory Tests Test 08/03/16 20:44 08/04/16 00:48 08/04/16 05:24 08/04/16 07:05 Bedside Glucose 119 116 94 Anion Gap 11 Blood Urea Nitrogen 18 Calcium Level 7.9 L Carbon Dioxide Level 25 Chloride Level 106 Creatinine 0.97 Glucose Level 76 INR International Normalized Ratio 1.26 Magnesium Level 1.9 Phosphorus Level 2.6 Potassium Level 3.7 Prothrombin Time 15.9 H Prothrombin Time Ratio 1.2 Sodium Level 138 Test 08/04/16 08:08 08/04/16 11:49 08/04/16 17:25 Bedside Glucose 81 122 133 Medications Medications Current Medications Lorazepam (Ativan) 2 mg Q2H PRN IV RASS GOAL -2 TO -3; Start 07/27/16 at 17:30 Nitroglycerin (Nitroglycerin (Sl Tab) 0.4 Mg) 1 tab Q5M PRN SL CHEST PAIN; Start 07/27/16 at 17:30 Lorazepam (Ativan) 1 mg Q2H PRN IV ANXIETY; Start 07/27/16 at 17:30 Docusate Sodium (Colace) 100 mg Q12H PRN PO CONSTIPATION Last administered on 22:25; Admin Dose 100 MG; Start 07/27/16 at 17:30 Bisacodyl (Dulcolax Supp) 10 mg DAILY PRN [place] CONSTIPATION; Start 07/27/16 at 17: 30 Aspirin (Aspirin) 81 mg DAILY PO Last administered on 08/04/16 09:29; Admin Dose 81 MG; Start 07/28/16 at 09:00 Atorvastatin Calcium (Lipitor) 20 mg HS PO Last administered on 08/03/16 21:45 ; Admin Dose 20 MG; Start 07/27/16 at 21:00 Digoxin (Digoxin) 0.125 mg DAILY@13 PO Last administered on 08/04/16 13:29; Admin Dose 0.125 MG; Start 07/28/16 at 13:00 Sertraline HCl (Zoloft) 100 mg DAILY PO Last administered on 08/04/16 09:31; Admin Dose 100 MG; Start 07/28/16 at 09:00 Miscellaneous Information 1 ea NOTE XX ; Start 07/27/16 at 18:00 Glucose (Glutose) 15 gm Q15M PRN PO DECREASED GLUCOSE; Start 07/27/16 at 18:00 Glucose (Glutose) 22.5 gm Q15M PRN PO DECREASED GLUCOSE; Start 07/27/16 at 18:00 Dextrose (D50w Syringe) 25 ml Q15M PRN IV DECREASED GLUCOSE Last administered on 08/01/16 05:05; Admin Dose 25 ML; Start 07/27/16 at 18:00 Dextrose (D50w Syringe) 50 ml Q15M PRN IV DECREASED GLUCOSE; Start 07/27/16 at 18:00 Glucagon (Glucagen) 1 mg Q15M PRN IM DECREASED GLUCOSE; Start 07/27/16 at 18:00 Glucose (Glutose) 15 gm Q15M PRN BUCCAL DECREASED GLUCOSE Last administered on 08/01/16 01:14; Admin Dose 15 GM; Start 07/27/16 at 18:00 Metoprolol Tartrate (Lopressor) 25 mg BID PO Last administered on 08/03/16 21: 44; Admin Dose 25 MG; Start 07/27/16 at 21:00 Multivitamins Therapeutic (Theragran) 1 tab DAILY PO Last administered on 09:31; Admin Dose 1 TAB; Start 07/28/16 at 09:00 Insulin Aspart (Novolog Insulin Pen) NOVOLOG *MILD* ALGORI... Q4H SC Last administered on 08/02/16 22:35; Admin Dose 1 UNIT; Start 07/28/16 at 12:00 Montelukast Sodium (Singulair) 10 mg HS NGT Last administered on 08/03/16 21: 44; Admin Dose 10 MG; Start 07/28/16 at 21:00 Salmeterol Xinafoate/ Fluticasone (Advair 250/50 Diskus) 1 inh BID INH Last administered on 08/04/16 09:31; Admin Dose 1 INH; Start 07/29/16 at 21:00 Lorazepam (Ativan) 1 mg Q6H PRN PO ANXIETY Last administered on 07/29/16 23:41 ; Admin Dose 1 MG; Start 07/29/16 at 23:30 Famotidine (Pepcid) 20 mg QHS PO Last administered on 08/03/16 21:45; Admin Dose 20 MG; Start 08/01/16 at 21:00 Enoxaparin Sodium (Lovenox) 85 mg Q24H SC Last administered on 08/03/16 21:48 ; Admin Dose 85 MG; Start 08/01/16 at 17:30 Azithromycin (Zithromax) 500 mg DAILY PO Last administered on 08/04/16 09:29; Admin Dose 500 MG; Start 08/02/16 at 09:00 Guaifenesin/ Dextromethorphan (Robitussin Dm Liquid Cup) 10 ml Q4H PRN PO COUGH Last administered on 08/04/16 11:10; Admin Dose 10 ML; Start 08/02/16 at 03:00 Insulin Glargine (Lantus) 5 unit DAILY@20 SC Last administered on 08/03/16 21: 46; Admin Dose 5 UNIT; Start 08/02/16 at 20:00 Miscellaneous Information (* Miscellaneous Pharmacy Order) HOLD all METFORMIN ... ONCE XX ; Start 08/03/16 at 14:00; Stop 08/05/16 at 13:59 Acetaminophen (Tylenol Tab) 650 mg Q4H PRN PO NON-CARDIAC PAIN LEVEL (1-3); Start 08/03/16 at 14:00 Morphine Sulfate (morphine) 2 mg Q2H PRN IV FOR NON CARDIAC PAIN (4-10) Last administered on 08/04/16 01:23; Admin Dose 2 MG; Start 08/03/16 at 14:00 Al Hydrox/Mg Hydrox/Simethicone (Mag-Al Plus) 30 ml Q4H PRN PO GASTROINTESTINAL UPSET; Start 08/03/16 at 14:00 Ondansetron HCl (Zofran Inj) 4 mg Q4H PRN IV NAUSEA AND/OR VOMITING; Start at 14:00 Warfarin Sodium (Coumadin) 7.5 mg DAILY@17 NGT Last administered on 08/03/16 21:43; Admin Dose 7.5 MG; Start 2/15/17 at 17:00 Lactobacillus Acidophilus/ Rhamnosus (Culturelle) 1 cap BID PO ; Start 08/04/16 at 21:00 ESTEFANI BORREGO Aug 04, 2016 18:01
[2016-08-04] MEDS: WARFARIN 7.5 MG TAB NGT SCH (18:24)
[2016-08-04] MEDS: ENOXAPARIN 100 MG/ML SYG SC SCH (18:25)
--- NOTE | 2016-08-04 18:30 | DS ---
DATE OF ADMISSION: 07/27/2016 DATE OF DISCHARGE: 08/05/2016 DATE OF DISCHARGE: 08/05/2016 PRIMARY CARE PHYSICIAN: Unknown. FABRIC NORMALIZER: Dr. Ramirez, Dr. Piedra, Dr. Preciado, Dr. Kim. DIAGNOSIS ON ADMISSION: Acute respiratory failure. DIAGNOSES ON DISCHARGE: 1. Acute hypoxic respiratory failure. 2. Acute on chronic decompensated congestive heart failure. 3. Acute chronic obstructive pulmonary disease exacerbation. 4. Past tobacco. 5. Chronic coronary artery disease. 6. Chronic atrial fibrillation. 7. Deconditioning. HOSPITAL COURSE: This is a 75-year-old gentleman admitted from home with yellow expectoration and c ough, wheezing and intubated in the ER for respiratory distress, had an abnormal troponin in ICU, wa s intubated and extubated and is recuperating on the floor. Cardiac catheterization did not show an y significant severe disease. He will continue medical management. The etiology is probably severe COPD exacerbation with possible demand ischemia. He is presently stable, improving on aerosols. Maxine jarquin has finished steroids. He will finish his empiric bronchitis, azithromycin soon. In terms of his heart, he is stable on a beta jaquelin, aspirin, and statin. Not a candidate for RENNY inhibitor at this time. Will restart maybe in 1 week. The patient needs advanced care planning es tablished. In terms of his diabetes, his metformin will be restarted soon and he just had a cardiac catheteriza tion yesterday. In terms of valvular heart disease, it is mitral valve and aortic valve. A 2D echo done. In terms of his atrial fibrillation, the patient will restart Coumadin. INR being bridged with Loven ox. In terms of his cardiopulmonary arrest and deconditioning, the patient may need ____ will be dischar ged to a jail facility versus acute rehab for deconditioning. He still has a little bit of edema and his legs are weak. DISCHARGE PLAN: The patient will be discharged to skilled nurse facility versus acute rehabilitatio n. DIET: 1800 ADA cardiac. ACTIVITY: As tolerating. ALLERGIES: None. CONDITION: Stable. BARRIERS TO DISCHARGE: Placement. PENDING TESTS: None. FUNCTIONAL STATUS: The patient is awake, alert, agrees with plan of care. REASON FOR ADMISSION: Respiratory failure. LABORATORY DATA: White cell count of 8, hemoglobin and hematocrit of 10 and 29, platelets of 108. INR 1.2. Digoxin 0.9. Sodium 138, potassium 3.7, chloride 106, bicarbonate 25, BUN 18, creatinine 0.9, glucose 70. A1c of 12.5, calcium 7.9, magnesium of 1.9, phosphorus of 2.6. Vitamin D of 19. TSH of 1.3. AST and ALT down to 60 and 70, alkaline phosphatase of 99, bilirubin 0, albumin of 2.9, total cholesterol 97.8, HDL of 43, LDL of 36, triglycerides 92, lactic acid 1.2. In terms of cultu res, blood, urine and MRSA of nares are negative. Chest x-ray from the shows slight CHF. CAT s can of brain did not show any acute process. There is atrophy and mild volume loss. 2D echo read a s EF of greater than 65, hyperdynamic left ventricular systolic function, severe left atrial enlarge ment. Cardiac cath report was read as very mild nonobstructive coronary artery disease. DISCHARGE MEDICATIONS: STOPPED MEDICATIONS: 1. Lasix. 2. Potassium. CONTINUED MEDICATIONS: 1. Albuterol 2 puffs q.4 p.r.n. 2. Combivent 1 puff 4 times daily p.r.n. apparently. 3. Aspirin 81. 4. Lipitor 20. 5. Digoxin 0.125 daily. 7. Colace 100 daily. 8. Neurontin 200 t.i.d. 9. Lopressor 25 b.i.d. 10. Multivitamin daily. 11. Protonix 40. 12. Zoloft 100 daily. ALTERED MEDICATIONS: Coumadin now 7.5 daily. NEW MEDICATIONS: 1. Singulair 10. 2. Culturelle 1 capsule twice daily. 3. Lovenox 85 mg subq once daily until INR therapeutic. 4. Azithromycin 250 daily for 3 more days. Dictated By: BOB PURDY MD AC/NTS Conf#: [id number] DID#: [id number] CC: ESTEFANI RAMIREZ MD; NASH PIEDRA MD; JANELL KIM MD;*EndCC*
[2016-08-04] MEDS: ATORVASTATIN 20 MG TAB PO SCH (21:59)
[2016-08-04] MEDS: FAMOTIDINE 20 MG TAB PO SCH (21:59)
[2016-08-04] MEDS: MONTELUKAST 10 MG TAB NGT SCH (21:59)
[2016-08-04] MEDS: LACTOBACILLUS RHAMNOSUS CAP PO SCH (21:59)
[2016-08-04] MEDS: INSULIN GLARGINE [LANtus] 3 ML PEN SC SCH (22:56)
[2016-08-05] VITALS (10 sets, daily range): BP systolic 104–131; BP diastolic 58–73; PULSE 46–82; RESP 20
[2016-08-05] MEDS: INSULIN ASPART [NOVOLOG] 3 ML PEN SC SCH ×4 (01:03→12:52)
[2016-08-05 01:23] LABS: COLLECTION PERIOD 24 hrs
[2016-08-05 08:03] LABS: INR 1.29; PROTIME 16.2 Sec (12.2-14.2); PT RATIO 1.3
[2016-08-05] MEDS: ALBUTEROL/IPRATROPIUM (NEB) 3 ML AMP HHN SCH (08:11)
[2016-08-05] MEDS: ASPIRIN 81 MG TAB PO SCH (08:48)
[2016-08-05] MEDS: SERTRALINE 100 MG TAB PO SCH (08:48)
[2016-08-05] MEDS: SALMETEROL/FLUTICASONE 250/50 INHA INH SCH (08:48)
[2016-08-05] MEDS: MULTIVITAMINS THERAPEUTIC TAB PO SCH (08:48)
[2016-08-05] MEDS: AZITHROMYCIN 250 MG TAB PO SCH (08:54)
[2016-08-05] MEDS: METOPROLOL 25 MG TAB PO SCH (08:54)
[2016-08-05] MEDS: LACTOBACILLUS RHAMNOSUS CAP PO SCH (09:01)
--- NOTE | 2016-08-05 10:03 | PN ---
Date/Time of Note Date/Time of Note DATE: 08/05/16 TIME: 10:02 Assessment/Plan VTE Prophylaxis VTE Prophylaxis Intervention: LMWH Lines/Catheters IV Catheter Type (from Nrs): Peripheral IV Urinary Cath still in place: Yes Reason Cath still needed: urinary retention Assessment/Plan Chief Complaint/Hosp Course S: 75-yr-M admitted w cough, yellow expectoration, wheezing; was intubated for resp distress in er. Presently extubated, doing well. 08/01 positive dyspnea/edema. No chest pain/ fever. Awake alert. 08/02 feels weak; edema remains 08/03 sp cardiac cath-appears minimal disease 08/04 no events. Still feels weak. 217 events. Spoke with patient and daughter regarding benefits of significant. O:vss; rate controlled a fib PE No pallor JVD irreg, no murmur rub gallop CTA B Benign Edema present but less A/P 1. Acute hypoxic respiratory failure; stable, resolved. 2. Acute on chr decompensated diastolic CHF. 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 sp cath- minimal dz 4. NSTEMI vs demand ischemia 5. MVR & AVR; Coumadin restarted; cont Lovenox 6. Chr COPD w possible ac exacerbation; improved 7. Past tobacco 8. Deconditioning; start PT, may need Snf vs acute rehab 9. Cardiopulmonary arrest 10. Chr A Fib; on Coumadin 11. Chr type 2 diabetes a1c=11 12. Medication nonadherence 13. Thrombocytopenia; stable/follow -Disposition significant for home with home health prescriptions and outpatient INR. Problems: Exam/Review of Systems Vital Signs Vitals Vital Signs Date Time Temp Pulse Resp B/P Pulse Ox O2 Delivery O2 Flow Rate FiO2 08/05/16 08:29 56 08/05/16 08:12 16 98 Nasal Cannula 2.0 08/05/16 07:00 98.5 104/58 08/04/16 01:03 28 Intake and Output 08/04/16 08/04/16 08/05/16 15:00 23:00 07:00 Intake Total 400 ml 350 ml Output Total 1050 ml 1200 ml Balance -650 ml -850 ml Results Result Diagram: 08/03/16 0645 08/04/16 0705 Results 24 hrs Laboratory Tests Test 08/04/16 11:49 08/04/16 17:25 08/04/16 22:00 08/04/16 22:50 Bedside Glucose 122 133 156 Urine Collection Duration 24 Urine Total Protein 24 Hour Urine Total Volume (Protein) Test 08/05/16 00:57 08/05/16 04:11 08/05/16 07:16 08/05/16 08:45 Bedside Glucose 210 117 93 Digoxin Level 0.7 L INR International Normalized Ratio 1.29 Prothrombin Time 16.2 H Prothrombin Time Ratio 1.3 Medications Medications Current Medications Lorazepam (Ativan) 2 mg Q2H PRN IV RASS GOAL -2 TO -3; Start 07/27/16 at 17:30 Nitroglycerin (Nitroglycerin (Sl Tab) 0.4 Mg) 1 tab Q5M PRN SL CHEST PAIN; Start 07/27/16 at 17:30 Lorazepam (Ativan) 1 mg Q2H PRN IV ANXIETY; Start 07/27/16 at 17:30 Docusate Sodium (Colace) 100 mg Q12H PRN PO CONSTIPATION Last administered on 22:25; Admin Dose 100 MG; Start 07/27/16 at 17:30 Bisacodyl (Dulcolax Supp) 10 mg DAILY PRN [place] CONSTIPATION; Start 07/27/16 at 17: 30 Aspirin (Aspirin) 81 mg DAILY PO Last administered on 08/05/16 08:48; Admin Dose 81 MG; Start 07/28/16 at 09:00 Atorvastatin Calcium (Lipitor) 20 mg HS PO Last administered on 08/04/16 21:59 ; Admin Dose 20 MG; Start 07/27/16 at 21:00 Digoxin (Digoxin) 0.125 mg DAILY@13 PO Last administered on 08/04/16 13:29; Admin Dose 0.125 MG; Start 07/28/16 at 13:00 Sertraline HCl (Zoloft) 100 mg DAILY PO Last administered on 08/05/16 08:48; Admin Dose 100 MG; Start 07/28/16 at 09:00 Miscellaneous Information 1 ea NOTE XX ; Start 07/27/16 at 18:00 Glucose (Glutose) 15 gm Q15M PRN PO DECREASED GLUCOSE; Start 07/27/16 at 18:00 Glucose (Glutose) 22.5 gm Q15M PRN PO DECREASED GLUCOSE; Start 07/27/16 at 18:00 Dextrose (D50w Syringe) 25 ml Q15M PRN IV DECREASED GLUCOSE Last administered on 08/01/16 05:05; Admin Dose 25 ML; Start 07/27/16 at 18:00 Dextrose (D50w Syringe) 50 ml Q15M PRN IV DECREASED GLUCOSE; Start 07/27/16 at 18:00 Glucagon (Glucagen) 1 mg Q15M PRN IM DECREASED GLUCOSE; Start 07/27/16 at 18:00 Glucose (Glutose) 15 gm Q15M PRN BUCCAL DECREASED GLUCOSE Last administered on 08/01/16 01:14; Admin Dose 15 GM; Start 07/27/16 at 18:00 Metoprolol Tartrate (Lopressor) 25 mg BID PO Last administered on 08/04/16 22: 00; Admin Dose 25 MG; Start 07/27/16 at 21:00 Multivitamins Therapeutic (Theragran) 1 tab DAILY PO Last administered on 08:48; Admin Dose 1 TAB; Start 07/28/16 at 09:00 Insulin Aspart (Novolog Insulin Pen) NOVOLOG *MILD* ALGORI... Q4H SC Last administered on 08/05/16 01:03; Admin Dose 2 UNIT; Start 07/28/16 at 12:00 Montelukast Sodium (Singulair) 10 mg HS NGT Last administered on 08/04/16 21: 59; Admin Dose 10 MG; Start 07/28/16 at 21:00 Salmeterol Xinafoate/ Fluticasone (Advair 250/50 Diskus) 1 inh BID INH Last administered on 08/05/16 08:48; Admin Dose 1 INH; Start 07/29/16 at 21:00 Lorazepam (Ativan) 1 mg Q6H PRN PO ANXIETY Last administered on 07/29/16 23:41 ; Admin Dose 1 MG; Start 07/29/16 at 23:30 Famotidine (Pepcid) 20 mg QHS PO Last administered on 08/04/16 21:59; Admin Dose 20 MG; Start 08/01/16 at 21:00 Enoxaparin Sodium (Lovenox) 85 mg Q24H SC Last administered on 08/04/16 18:25 ; Admin Dose 85 MG; Start 08/01/16 at 17:30 Azithromycin (Zithromax) 500 mg DAILY PO Last administered on 08/05/16 08:54; Admin Dose 500 MG; Start 08/02/16 at 09:00 Guaifenesin/ Dextromethorphan (Robitussin Dm Liquid Cup) 10 ml Q4H PRN PO COUGH Last administered on 08/04/16 11:10; Admin Dose 10 ML; Start 08/02/16 at 03:00 Insulin Glargine (Lantus) 5 unit DAILY@20 SC Last administered on 08/04/16 22: 56; Admin Dose 5 UNIT; Start 08/02/16 at 20:00 Miscellaneous Information (* Miscellaneous Pharmacy Order) HOLD all METFORMIN ... ONCE XX Last administered on 08/04/16 22:56; Admin Dose 1 EA; Start at 14:00; Stop 08/05/16 at 13:59 Acetaminophen (Tylenol Tab) 650 mg Q4H PRN PO NON-CARDIAC PAIN LEVEL (1-3); Start 08/03/16 at 14:00 Morphine Sulfate (morphine) 2 mg Q2H PRN IV FOR NON CARDIAC PAIN (4-10) Last administered on 08/04/16 01:23; Admin Dose 2 MG; Start 08/03/16 at 14:00 Al Hydrox/Mg Hydrox/Simethicone (Mag-Al Plus) 30 ml Q4H PRN PO GASTROINTESTINAL UPSET; Start 08/03/16 at 14:00 Ondansetron HCl (Zofran Inj) 4 mg Q4H PRN IV NAUSEA AND/OR VOMITING; Start at 14:00 Warfarin Sodium (Coumadin) 7.5 mg DAILY@17 NGT Last administered on 08/04/16 18:24; Admin Dose 7.5 MG; Start 08/03/16 at 17:00 Lactobacillus Acidophilus/ Rhamnosus (Culturelle) 1 cap BID PO Last administered on 08/05/16 09:01; Admin Dose 1 CAP; Start 08/04/16 at 21:00 BOB PURDY MD Aug 05, 2016 10:03
--- NOTE | 2016-08-05 12:31 | CONS ---
Date/Time of Note Date/Time of Note DATE: 08/05/16 TIME: 12:28 Assessment/Plan Assessment/Plan Additional Assessment/Plan Assessment and recommendations; 1. Patient admitted with respiratory failure due to COPD/asthma exacerbation no successfully extubated several days ago. 2. Hypertension 3. Stable diabetes. 4. Status post mitral valve replacement on anticoagulation. Continue current treatment. Patient awaiting discharge. We will sign off. Thank for the consult. Consultation Date/Type/Reason Admit Date/Time Jul 27, 2016 at 17:13 Type of Consultation: Pulmonary Referring Provider: ERICA GONZALEZ MD 24 HR Interval Summary Free Text/Dictation Patient condition is stable. Denies any significant shortness of breath. Any chest pain, cough, wheezing. General examination; elderly male currently in no distress awake and alert. Exam/Review of Systems Vital Signs Vitals Vital Signs Date Time Temp Pulse Resp B/P Pulse Ox O2 Delivery O2 Flow Rate FiO2 08/05/16 08:29 56 08/05/16 08:12 16 98 Nasal Cannula 2.0 08/05/16 07:00 98.5 104/58 08/04/16 01:03 28 Intake and Output 08/04/16 08/04/16 08/05/16 15:00 23:00 07:00 Intake Total 400 ml 350 ml Output Total 1050 ml 1200 ml Balance -650 ml -850 ml Exam H EENT examination; supple neck, no JVD. No lymphadenopathy. Pharynx is clear. Chest examination; diminished but clear breath sounds bilaterally. There is a well-healed sternal scar. Mechanical S2. Regular rhythm. Abdomen examination; soft, nondistended. No organomegaly. Bowel sounds audible. Extremity examination; no peripheral edema. COMMERCIAL INSULATOR examination; no focal deficit. Results Result Diagram: 08/03/16 0645 08/04/16 0705 Results 24 hrs Laboratory Tests Test 08/04/16 17:25 08/04/16 22:00 08/04/16 22:50 08/05/16 00:57 Bedside Glucose 133 156 210 Urine Collection Duration 24 Urine Total Protein 24 Hour Urine Total Volume (Protein) Test 08/05/16 04:11 08/05/16 07:16 08/05/16 08:45 Bedside Glucose 117 93 Digoxin Level 0.7 L INR International Normalized Ratio 1.29 Prothrombin Time 16.2 H Prothrombin Time Ratio 1.3 Medications Medications Current Medications Lorazepam (Ativan) 2 mg Q2H PRN IV RASS GOAL -2 TO -3; Start 07/27/16 at 17:30 Nitroglycerin (Nitroglycerin (Sl Tab) 0.4 Mg) 1 tab Q5M PRN SL CHEST PAIN; Start 07/27/16 at 17:30 Lorazepam (Ativan) 1 mg Q2H PRN IV ANXIETY; Start 07/27/16 at 17:30 Docusate Sodium (Colace) 100 mg Q12H PRN PO CONSTIPATION Last administered on 22:25; Admin Dose 100 MG; Start 07/27/16 at 17:30 Bisacodyl (Dulcolax Supp) 10 mg DAILY PRN [place] CONSTIPATION; Start 07/27/16 at 17: 30 Aspirin (Aspirin) 81 mg DAILY PO Last administered on 08/05/16 08:48; Admin Dose 81 MG; Start 07/28/16 at 09:00 Atorvastatin Calcium (Lipitor) 20 mg HS PO Last administered on 08/04/16 21:59 ; Admin Dose 20 MG; Start 07/27/16 at 21:00 Digoxin (Digoxin) 0.125 mg DAILY@13 PO Last administered on 08/04/16 13:29; Admin Dose 0.125 MG; Start 07/28/16 at 13:00 Sertraline HCl (Zoloft) 100 mg DAILY PO Last administered on 08/05/16 08:48; Admin Dose 100 MG; Start 07/28/16 at 09:00 Miscellaneous Information 1 ea NOTE XX ; Start 07/27/16 at 18:00 Glucose (Glutose) 15 gm Q15M PRN PO DECREASED GLUCOSE; Start 07/27/16 at 18:00 Glucose (Glutose) 22.5 gm Q15M PRN PO DECREASED GLUCOSE; Start 07/27/16 at 18:00 Dextrose (D50w Syringe) 25 ml Q15M PRN IV DECREASED GLUCOSE Last administered on 08/01/16 05:05; Admin Dose 25 ML; Start 07/27/16 at 18:00 Dextrose (D50w Syringe) 50 ml Q15M PRN IV DECREASED GLUCOSE; Start 07/27/16 at 18:00 Glucagon (Glucagen) 1 mg Q15M PRN IM DECREASED GLUCOSE; Start 07/27/16 at 18:00 Glucose (Glutose) 15 gm Q15M PRN BUCCAL DECREASED GLUCOSE Last administered on 08/01/16 01:14; Admin Dose 15 GM; Start 07/27/16 at 18:00 Metoprolol Tartrate (Lopressor) 25 mg BID PO Last administered on 08/04/16 22: 00; Admin Dose 25 MG; Start 07/27/16 at 21:00 Multivitamins Therapeutic (Theragran) 1 tab DAILY PO Last administered on 08:48; Admin Dose 1 TAB; Start 07/28/16 at 09:00 Insulin Aspart (Novolog Insulin Pen) NOVOLOG *MILD* ALGORI... Q4H SC Last administered on 08/05/16 01:03; Admin Dose 2 UNIT; Start 07/28/16 at 12:00 Montelukast Sodium (Singulair) 10 mg HS NGT Last administered on 08/04/16 21: 59; Admin Dose 10 MG; Start 07/28/16 at 21:00 Salmeterol Xinafoate/ Fluticasone (Advair 250/50 Diskus) 1 inh BID INH Last administered on 08/05/16 08:48; Admin Dose 1 INH; Start 07/29/16 at 21:00 Lorazepam (Ativan) 1 mg Q6H PRN PO ANXIETY Last administered on 07/29/16 23:41 ; Admin Dose 1 MG; Start 07/29/16 at 23:30 Famotidine (Pepcid) 20 mg QHS PO Last administered on 08/04/16 21:59; Admin Dose 20 MG; Start 08/01/16 at 21:00 Enoxaparin Sodium (Lovenox) 85 mg Q24H SC Last administered on 08/04/16 18:25 ; Admin Dose 85 MG; Start 08/01/16 at 17:30 Azithromycin (Zithromax) 500 mg DAILY PO Last administered on 08/05/16 08:54; Admin Dose 500 MG; Start 08/02/16 at 09:00 Guaifenesin/ Dextromethorphan (Robitussin Dm Liquid Cup) 10 ml Q4H PRN PO COUGH Last administered on 08/04/16 11:10; Admin Dose 10 ML; Start 08/02/16 at 03:00 Insulin Glargine (Lantus) 5 unit DAILY@20 SC Last administered on 08/04/16 22: 56; Admin Dose 5 UNIT; Start 08/02/16 at 20:00 Miscellaneous Information (* Miscellaneous Pharmacy Order) HOLD all METFORMIN ... ONCE XX Last administered on 08/04/16 22:56; Admin Dose 1 EA; Start at 14:00; Stop 08/05/16 at 13:59 Acetaminophen (Tylenol Tab) 650 mg Q4H PRN PO NON-CARDIAC PAIN LEVEL (1-3); Start 08/03/16 at 14:00 Morphine Sulfate (morphine) 2 mg Q2H PRN IV FOR NON CARDIAC PAIN (4-10) Last administered on 08/04/16 01:23; Admin Dose 2 MG; Start 08/03/16 at 14:00 Al Hydrox/Mg Hydrox/Simethicone (Mag-Al Plus) 30 ml Q4H PRN PO GASTROINTESTINAL UPSET; Start 08/03/16 at 14:00 Ondansetron HCl (Zofran Inj) 4 mg Q4H PRN IV NAUSEA AND/OR VOMITING; Start at 14:00 Warfarin Sodium (Coumadin) 7.5 mg DAILY@17 NGT Last administered on 08/04/16 18:24; Admin Dose 7.5 MG; Start 08/03/16 at 17:00 Lactobacillus Acidophilus/ Rhamnosus (Culturelle) 1 cap BID PO Last administered on 08/05/16 09:01; Admin Dose 1 CAP; Start 08/04/16 at 21:00 MARIE LYNCH Aug 05, 2016 12:31
[2016-08-05] MEDS ORDERED: AZIT250T6 PO (13:59)
--- NOTE | 2016-08-05 14:07 | PDOCDIS ---
Discharge Instructions DIAGNOSIS Discharge Diagnosis: resp failure CONDITION Patient Condition: Stable HOME CARE INSTRUCTIONS: Special Diet: Cardiac, carb controlled ACTIVITY: Activity Restrictions: Slowly Increase Activity Do not Drive FOLLOW UP/APPOINTMENTS Appointments pcp -next week for blood work: INR check. Cardio Dr Wilks -2-4wks Take coumadin 7.5mg daily for now. -Fatigue/ cough/ shortness of breath/ dysphagia is due to recent respiratory failure. It will improved with time. -Continue walking daily at home. BOB PURDY MD Aug 05, 2016 14:07
--- NOTE | 2016-08-05 14:22 | CONS ---
Date/Time of Note Date/Time of Note DATE: 08/05/16 TIME: 14:20 Assessment/Plan Assessment/Plan Chief Complaint/Hosp Course IMPRESSION: 1. Cardiac arrest. Assess etiology.-Now s/p LHC with no sig obstructive disease 2. Positive troponin/non-ST elevation myocardial infarction. Assess significance. Assess for true acute coronary syndrome.-now downtrending/NL EF by echo 3. Abnormal electrocardiogram after arrest, with ST depressions. 4. Tachyarrhythmia. 5. History of mitral valve replacement.-bioprosthetic by echo 6. Hypotension, borderline.-improved/off presssors/stable 7. Diabetes mellitus with hyperglycemia. 8. Renal failure, improving. 9. Coagulopathy-improved 10. Anemia. 11. Thrombocytopenia-improving 12.CHF-diastolic acute on likely chronic 14. AF-started overnight 07/31 [facility] PAF . Now on lovenox Recc: -Tele monitoring -Continue digoxin/statin/asa -Follow volume status/BP closely -Continue abx's/steroids/bronchodilators -BB as tolerated only -Continue lovenox to coumadin/follow INR closely -D/C planning Problems: Consultation Date/Type/Reason Admit Date/Time Jul 27, 2016 at 17:13 Initial Consult Date 07/28/16 Type of Consultation: Cardiology Reason for Consultation cardiac arrest/positive troponin Referring Provider: ERICA GONZALEZ MD Exam/Review of Systems Vital Signs Vitals Vital Signs Date Time Temp Pulse Resp B/P Pulse Ox O2 Delivery O2 Flow Rate FiO2 08/05/16 12:39 82 08/05/16 11:00 98.5 20 131/73 96 08/05/16 08:12 Nasal Cannula 2.0 08/04/16 01:03 28 Intake and Output 08/04/16 08/04/16 08/05/16 15:00 23:00 07:00 Intake Total 400 ml 350 ml Output Total 1050 ml 1200 ml Balance -650 ml -850 ml Exam Review of Systems: CONSTITUTIONAL: No fevers, chills. PULMONARY: No sob CARDIOVASCULAR: No chest pain/palpitations GASTROINTESTINAL: No nausea/vomiting. GENITOURINARY: No hematuria/dysuria. MUSCULOSKELETAL: No myagias/arthalgias. PSYCHIATRIC: The patient denies depression. NEUROLOGIC: lethargic Constitutional: alert Psych: no complaints Head: normocephalic ENMT: mucosa pink and moist Neck: jvd (8-9 cm water), supple Respiratory: clear to auscultation Cardiovascular: regular rate and rhythm Gastrointestinal: non-tender, soft Musculoskeletal: muscle tone (normal) Extremities: edema (none) 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: other (No focal deficits) Results Result Diagram: 08/03/16 0645 08/04/16 0705 Results 24 hrs Laboratory Tests Test 08/04/16 17:25 08/04/16 22:00 08/04/16 22:50 08/05/16 00:57 Bedside Glucose 133 156 210 Urine Collection Duration 24 Urine Total Protein 24 Hour Urine Total Volume (Protein) Test 08/05/16 04:11 08/05/16 07:16 08/05/16 08:45 08/05/16 12:49 Bedside Glucose 117 93 161 Digoxin Level 0.7 L INR International Normalized Ratio 1.29 Prothrombin Time 16.2 H Prothrombin Time Ratio 1.3 Medications Medications Current Medications Lorazepam (Ativan) 2 mg Q2H PRN IV RASS GOAL -2 TO -3; Start 07/27/16 at 17:30 Nitroglycerin (Nitroglycerin (Sl Tab) 0.4 Mg) 1 tab Q5M PRN SL CHEST PAIN; Start 07/27/16 at 17:30 Lorazepam (Ativan) 1 mg Q2H PRN IV ANXIETY; Start 07/27/16 at 17:30 Docusate Sodium (Colace) 100 mg Q12H PRN PO CONSTIPATION Last administered on 22:25; Admin Dose 100 MG; Start 07/27/16 at 17:30 Bisacodyl (Dulcolax Supp) 10 mg DAILY PRN [place] CONSTIPATION; Start 07/27/16 at 17: 30 Aspirin (Aspirin) 81 mg DAILY PO Last administered on 08/05/16 08:48; Admin Dose 81 MG; Start 07/28/16 at 09:00 Atorvastatin Calcium (Lipitor) 20 mg HS PO Last administered on 08/04/16 21:59 ; Admin Dose 20 MG; Start 07/27/16 at 21:00 Digoxin (Digoxin) 0.125 mg DAILY@13 PO Last administered on 08/04/16 13:29; Admin Dose 0.125 MG; Start 07/28/16 at 13:00 Sertraline HCl (Zoloft) 100 mg DAILY PO Last administered on 08/05/16 08:48; Admin Dose 100 MG; Start 07/28/16 at 09:00 Miscellaneous Information 1 ea NOTE XX ; Start 07/27/16 at 18:00 Glucose (Glutose) 15 gm Q15M PRN PO DECREASED GLUCOSE; Start 07/27/16 at 18:00 Glucose (Glutose) 22.5 gm Q15M PRN PO DECREASED GLUCOSE; Start 07/27/16 at 18:00 Dextrose (D50w Syringe) 25 ml Q15M PRN IV DECREASED GLUCOSE Last administered on 08/01/16 05:05; Admin Dose 25 ML; Start 07/27/16 at 18:00 Dextrose (D50w Syringe) 50 ml Q15M PRN IV DECREASED GLUCOSE; Start 07/27/16 at 18:00 Glucagon (Glucagen) 1 mg Q15M PRN IM DECREASED GLUCOSE; Start 07/27/16 at 18:00 Glucose (Glutose) 15 gm Q15M PRN BUCCAL DECREASED GLUCOSE Last administered on 08/01/16 01:14; Admin Dose 15 GM; Start 07/27/16 at 18:00 Metoprolol Tartrate (Lopressor) 25 mg BID PO Last administered on 08/04/16 22: 00; Admin Dose 25 MG; Start 07/27/16 at 21:00 Multivitamins Therapeutic (Theragran) 1 tab DAILY PO Last administered on 08:48; Admin Dose 1 TAB; Start 07/28/16 at 09:00 Insulin Aspart (Novolog Insulin Pen) NOVOLOG *MILD* ALGORI... Q4H SC Last administered on 08/05/16 12:52; Admin Dose 1 UNIT; Start 07/28/16 at 12:00 Montelukast Sodium (Singulair) 10 mg HS NGT Last administered on 08/04/16 21: 59; Admin Dose 10 MG; Start 07/28/16 at 21:00 Salmeterol Xinafoate/ Fluticasone (Advair 250/50 Diskus) 1 inh BID INH Last administered on 08/05/16 08:48; Admin Dose 1 INH; Start 07/29/16 at 21:00 Lorazepam (Ativan) 1 mg Q6H PRN PO ANXIETY Last administered on 07/29/16 23:41 ; Admin Dose 1 MG; Start 07/29/16 at 23:30 Famotidine (Pepcid) 20 mg QHS PO Last administered on 08/04/16 21:59; Admin Dose 20 MG; Start 08/01/16 at 21:00 Enoxaparin Sodium (Lovenox) 85 mg Q24H SC Last administered on 08/04/16 18:25 ; Admin Dose 85 MG; Start 08/01/16 at 17:30 Guaifenesin/ Dextromethorphan (Robitussin Dm Liquid Cup) 10 ml Q4H PRN PO COUGH Last administered on 08/04/16 11:10; Admin Dose 10 ML; Start 08/02/16 at 03:00 Insulin Glargine (Lantus) 5 unit DAILY@20 SC Last administered on 08/04/16 22: 56; Admin Dose 5 UNIT; Start 08/02/16 at 20:00 Acetaminophen (Tylenol Tab) 650 mg Q4H PRN PO NON-CARDIAC PAIN LEVEL (1-3); Start 08/03/16 at 14:00 Morphine Sulfate (morphine) 2 mg Q2H PRN IV FOR NON CARDIAC PAIN (4-10) Last administered on 08/04/16 01:23; Admin Dose 2 MG; Start 08/03/16 at 14:00 Al Hydrox/Mg Hydrox/Simethicone (Mag-Al Plus) 30 ml Q4H PRN PO GASTROINTESTINAL UPSET; Start 08/03/16 at 14:00 Ondansetron HCl (Zofran Inj) 4 mg Q4H PRN IV NAUSEA AND/OR VOMITING; Start at 14:00 Warfarin Sodium (Coumadin) 7.5 mg DAILY@17 NGT Last administered on 08/04/16 18:24; Admin Dose 7.5 MG; Start 08/03/16 at 17:00 Lactobacillus Acidophilus/ Rhamnosus (Culturelle) 1 cap BID PO Last administered on 08/05/16 09:01; Admin Dose 1 CAP; Start 08/04/16 at 21:00 Azithromycin (Zithromax) 250 mg DAILY PO ; Start 08/06/16 at 09:00 Linagliptin (Tradjenta) 5 mg DAILY PO ; Start 08/05/16 at 14:30 ESTEFANI BORREGO 17, 2017 14:22
[2016-08-05] MEDS ORDERED: LINAGLIPTIN 5 MG TABLET PO SCH (14:30)
[2016-08-05] MEDS: DIGOXIN 0.125 MG TAB PO SCH (15:41)
--- NOTE | 2016-08-05 15:45 | CONS ---
Date/Time of Note Date/Time of Note DATE: 08/05/16 TIME: 15:43 Assessment/Plan Assessment/Plan Problems: (1) T2DM (type 2 diabetes mellitus) Status: Chronic Comment: Excellent glycemic control although w/ some mild post-prandial hyperglycemia. Add linagliptin 5 mg/d. Will follow. Qualifiers: Diabetes mellitus complication status: with unspecified complications Diabetes mellitus intermediate insulin use: without long winder tender use Qualified Code : E11.8 - Type 2 diabetes mellitus with complication, without long-term current use of insulin Consultation Date/Type/Reason Admit Date/Time Jul 27, 2016 at 17:13 Initial Consult Date 07/28/16 Type of Consultation: Endocrinology Reason for Consultation T2DM management Referring Provider: ERICA GONZALEZ MD 24 HR Interval Summary Constitutional: improved, no complaints Detailed Summary Respiratory: no complaints Cardiovascular: no complaints Gastrointestinal: no complaints Genitourinary: no complaints Musculoskeletal: no complaints Neurologic: no complaints Exam/Review of Systems Vital Signs Vitals VS - Last 72 Hours, by Label Date Time Temp Pulse Resp B/P Pulse Ox O2 Delivery O2 Flow Rate FiO2 08/05/16 12:39 82 08/05/16 11:00 98.5 74 20 131/73 96 08/05/16 08:29 56 08/05/16 08:12 69 16 98 Nasal Cannula 2.0 08/05/16 08:12 98 2.0 08/05/16 07:00 98.5 67 20 104/58 95 08/05/16 04:56 46 08/05/16 04:21 61 08/05/16 04:19 2.0 08/05/16 04:00 98.9 91 20 107/66 96 08/05/16 00:13 71 08/05/16 00:00 98.7 70 20 105/64 98 08/04/16 23:42 68 18 98 Nasal Cannula 2.0 08/04/16 23:42 98 2.0 08/04/16 21:55 Nasal Cannula 2.0 08/04/16 20:18 85 08/04/16 20:00 98.9 91 20 112/66 96 08/04/16 16:55 81 08/04/16 15:00 98.0 86 20 121/67 97 08/04/16 12:58 99 2.0 08/04/16 12:51 69 20 99 Nasal Cannula 2.0 08/04/16 12:20 75 08/04/16 11:20 98.0 69 20 116/63 96 08/04/16 08:23 66 08/04/16 08:07 98.0 68 20 101/56 97 08/04/16 07:46 68 18 97 Nasal Cannula 2.0 08/04/16 07:40 Nasal Cannula 2.0 08/04/16 05:26 76 110/56 08/04/16 04:57 2.0 08/04/16 04:16 74 08/04/16 04:00 98.6 68 18 89/51 97 Room Air 2.0 08/04/16 01:03 78 18 99 Nasal Cannula 2.0 28 08/04/16 00:12 78 08/03/16 23:21 133 08/03/16 23:12 99.2 85 20 105/59 98 Nasal Cannula 2.0 08/03/16 22:55 2.0 08/03/16 21:30 85 125/58 98 Nasal Cannula 08/03/16 21:13 75 18 98 Nasal Cannula 2.0 28 08/03/16 21:00 74 112/59 97 Nasal Cannula 2.0 08/03/16 20:30 80 111/59 100 Nasal Cannula 2.0 08/03/16 20:18 98.6 76 20 110/55 100 08/03/16 20:14 72 08/03/16 20:10 Nasal Cannula 2.0 08/03/16 18:58 77 120/65 08/03/16 18:35 72 115/62 08/03/16 18:21 73 108/59 08/03/16 18:03 98.5 77 20 111/63 99 08/03/16 18:00 71 19 120/63 99 Nasal Cannula 2.0 08/03/16 17:00 63 18 130/70 99 Nasal Cannula 2.0 08/03/16 16:35 70 13 124/64 100 Nasal Cannula 2.0 08/03/16 16:30 98.0 74 18 121/60 100 Nasal Cannula 2.0 08/03/16 16:25 76 17 119/60 100 Nasal Cannula 2.0 08/03/16 16:20 78 17 141/70 99 Nasal Cannula 2.0 08/03/16 16:15 78 13 135/66 99 Nasal Cannula 2.0 08/03/16 16:10 78 15 131/69 99 Nasal Cannula 2.0 08/03/16 16:05 74 13 118/65 99 Nasal Cannula 2.0 08/03/16 16:00 70 18 129/69 100 Nasal Cannula 2.0 08/03/16 15:30 62 17 119/63 100 Nasal Cannula 2.0 08/03/16 15:15 64 18 120/62 100 Nasal Cannula 2.0 08/03/16 15:07 69 08/03/16 15:05 2.0 08/03/16 14:56 66 12 122/68 100 Nasal Cannula 2.0 08/03/16 14:51 64 14 125/66 100 Nasal Cannula 2.0 08/03/16 14:46 68 14 108/69 100 Nasal Cannula 2.0 08/03/16 14:41 62 14 127/65 100 Nasal Cannula 2.0 08/03/16 14:36 66 14 123/66 100 Nasal Cannula 2.0 08/03/16 14:31 62 14 118/65 100 Nasal Cannula 2.0 08/03/16 14:26 66 14 114/65 100 Nasal Cannula 2.0 08/03/16 14:21 62 14 112/62 100 Nasal Cannula 2.0 08/03/16 14:16 66 12 119/65 100 Nasal Cannula 2.0 08/03/16 14:09 68 13 120/66 100 Nasal Cannula 2.0 08/03/16 14:06 68 13 111/66 100 Nasal Cannula 2.0 08/03/16 13:59 64 13 117/63 100 Nasal Cannula 2.0 08/03/16 13:39 64 13 128/66 100 Nasal Cannula 2.0 08/03/16 13:34 18 120/71 99 Nasal Cannula 2.0 08/03/16 12:09 75 08/03/16 09:07 2.0 08/03/16 09:07 79 18 96 Nasal Cannula 2.0 08/03/16 08:30 Nasal Cannula 2.0 08/03/16 08:10 67 08/03/16 07:47 97.9 70 18 106/57 98 08/03/16 05:08 98.4 79 18 102/58 97 08/03/16 04:28 70 08/03/16 02:15 2.0 08/03/16 02:15 76 20 97 Nasal Cannula 2.0 08/03/16 01:13 98.6 71 16 95/51 94 08/03/16 00:22 72 08/02/16 20:39 71 08/02/16 20:30 Nasal Cannula 2.0 08/02/16 20:22 74 20 98 21 08/02/16 16:27 77 08/02/16 16:03 98.1 88 20 113/57 95 Vital Signs Date Time Temp Pulse Resp B/P Pulse Ox O2 Delivery O2 Flow Rate FiO2 08/05/16 12:39 82 08/05/16 11:00 98.5 20 131/73 96 08/05/16 08:12 Nasal Cannula 2.0 08/04/16 01:03 28 Intake and Output 08/04/16 08/04/16 08/05/16 15:00 23:00 07:00 Intake Total 400 ml 350 ml Output Total 1050 ml 1200 ml Balance -650 ml -850 ml Exam Constitutional: alert, frail, oriented Psych: nl mood/affect, no complaints Respiratory: clear to auscultation, normal air movement Cardiovascular: nl pulses, regular rate and rhythm, No edema, No murmurs/extra sounds, No rub Gastrointestinal: bowel sounds, nl liver, spleen, non-tender, soft, No mass, No rebound or guarding Musculoskeletal: nl extremities to inspection Extremities: normal pulses, No clubbing, No cyanosis, No edema 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, nl mental status, nl speech, nl strength Additional Comments Bedside Glucose - 72 Hours Test 08/02/16 17:14 08/02/16 20:17 08/03/16 01:01 08/03/16 05:06 Bedside Glucose 141mg/dL (70-220) 170mg/dL (70-220) 146mg/dL (70-220) 132mg/dL (70-220) Test 08/03/16 08:32 08/03/16 12:03 08/03/16 15:43 08/03/16 20:44 Bedside Glucose 111mg/dL (70-220) 105mg/dL (70-220) 119mg/dL (70-220) 119mg/dL (70-220) Test 08/04/16 00:48 08/04/16 05:24 08/04/16 08:08 08/04/16 11:49 Bedside Glucose 116mg/dL (70-220) 94mg/dL (70-220) 81mg/dL (70-220) 122mg/dL (70-220) Test 08/04/16 17:25 08/04/16 22:50 08/05/16 00:57 08/05/16 04:11 Bedside Glucose 133mg/dL (70-220) 156mg/dL (70-220) 210mg/dL (70-220) 117mg/dL (70-220) Test 08/05/16 08:45 08/05/16 12:49 Bedside Glucose 93mg/dL (70-220) 161mg/dL (70-220) Results Result Diagram: 08/03/16 0645 08/04/16 0705 Results 24 hrs Laboratory Tests Test 08/04/16 17:25 08/04/16 22:00 08/04/16 22:50 08/05/16 00:57 Bedside Glucose 133 156 210 Urine Collection Duration 24 Urine Total Protein 24 Hour Urine Total Volume (Protein) Test 08/05/16 04:11 08/05/16 07:16 08/05/16 08:45 08/05/16 12:49 Bedside Glucose 117 93 161 Digoxin Level 0.7 L INR International Normalized Ratio 1.29 Prothrombin Time 16.2 H Prothrombin Time Ratio 1.3 Medications Medications Current Medications Lorazepam (Ativan) 2 mg Q2H PRN IV RASS GOAL -2 TO -3; Start 07/27/16 at 17:30 Nitroglycerin (Nitroglycerin (Sl Tab) 0.4 Mg) 1 tab Q5M PRN SL CHEST PAIN; Start 07/27/16 at 17:30 Lorazepam (Ativan) 1 mg Q2H PRN IV ANXIETY; Start 07/27/16 at 17:30 Docusate Sodium (Colace) 100 mg Q12H PRN PO CONSTIPATION Last administered on 22:25; Admin Dose 100 MG; Start 07/27/16 at 17:30 Bisacodyl (Dulcolax Supp) 10 mg DAILY PRN [place] CONSTIPATION; Start 07/27/16 at 17: 30 Aspirin (Aspirin) 81 mg DAILY PO Last administered on 08/05/16 08:48; Admin Dose 81 MG; Start 07/28/16 at 09:00 Atorvastatin Calcium (Lipitor) 20 mg HS PO Last administered on 08/04/16 21:59 ; Admin Dose 20 MG; Start 07/27/16 at 21:00 Digoxin (Digoxin) 0.125 mg DAILY@13 PO Last administered on 08/05/16 15:41; Admin Dose 0.125 MG; Start 07/28/16 at 13:00 Sertraline HCl (Zoloft) 100 mg DAILY PO Last administered on 08/05/16 08:48; Admin Dose 100 MG; Start 07/28/16 at 09:00 Miscellaneous Information 1 ea NOTE XX ; Start 07/27/16 at 18:00 Glucose (Glutose) 15 gm Q15M PRN PO DECREASED GLUCOSE; Start 07/27/16 at 18:00 Glucose (Glutose) 22.5 gm Q15M PRN PO DECREASED GLUCOSE; Start 07/27/16 at 18:00 Dextrose (D50w Syringe) 25 ml Q15M PRN IV DECREASED GLUCOSE Last administered on 08/01/16 05:05; Admin Dose 25 ML; Start 07/27/16 at 18:00 Dextrose (D50w Syringe) 50 ml Q15M PRN IV DECREASED GLUCOSE; Start 07/27/16 at 18:00 Glucagon (Glucagen) 1 mg Q15M PRN IM DECREASED GLUCOSE; Start 07/27/16 at 18:00 Glucose (Glutose) 15 gm Q15M PRN BUCCAL DECREASED GLUCOSE Last administered on 08/01/16 01:14; Admin Dose 15 GM; Start 07/27/16 at 18:00 Metoprolol Tartrate (Lopressor) 25 mg BID PO Last administered on 08/04/16 22: 00; Admin Dose 25 MG; Start 07/27/16 at 21:00 Multivitamins Therapeutic (Theragran) 1 tab DAILY PO Last administered on 08:48; Admin Dose 1 TAB; Start 07/28/16 at 09:00 Insulin Aspart (Novolog Insulin Pen) NOVOLOG *MILD* ALGORI... Q4H SC Last administered on 08/05/16 12:52; Admin Dose 1 UNIT; Start 07/28/16 at 12:00 Montelukast Sodium (Singulair) 10 mg HS NGT Last administered on 08/04/16 21: 59; Admin Dose 10 MG; Start 07/28/16 at 21:00 Salmeterol Xinafoate/ Fluticasone (Advair 250/50 Diskus) 1 inh BID INH Last administered on 08/05/16 08:48; Admin Dose 1 INH; Start 07/29/16 at 21:00 Lorazepam (Ativan) 1 mg Q6H PRN PO ANXIETY Last administered on 07/29/16 23:41 ; Admin Dose 1 MG; Start 07/29/16 at 23:30 Famotidine (Pepcid) 20 mg QHS PO Last administered on 08/04/16 21:59; Admin Dose 20 MG; Start 08/01/16 at 21:00 Enoxaparin Sodium (Lovenox) 85 mg Q24H SC Last administered on 08/04/16 18:25 ; Admin Dose 85 MG; Start 08/01/16 at 17:30 Guaifenesin/ Dextromethorphan (Robitussin Dm Liquid Cup) 10 ml Q4H PRN PO COUGH Last administered on 08/04/16 11:10; Admin Dose 10 ML; Start 08/02/16 at 03:00 Insulin Glargine (Lantus) 5 unit DAILY@20 SC Last administered on 08/04/16 22: 56; Admin Dose 5 UNIT; Start 08/02/16 at 20:00 Acetaminophen (Tylenol Tab) 650 mg Q4H PRN PO NON-CARDIAC PAIN LEVEL (1-3); Start 08/03/16 at 14:00 Morphine Sulfate (morphine) 2 mg Q2H PRN IV FOR NON CARDIAC PAIN (4-10) Last administered on 08/04/16 01:23; Admin Dose 2 MG; Start 08/03/16 at 14:00 Al Hydrox/Mg Hydrox/Simethicone (Mag-Al Plus) 30 ml Q4H PRN PO GASTROINTESTINAL UPSET; Start 08/03/16 at 14:00 Ondansetron HCl (Zofran Inj) 4 mg Q4H PRN IV NAUSEA AND/OR VOMITING; Start at 14:00 Warfarin Sodium (Coumadin) 7.5 mg DAILY@17 NGT Last administered on 08/04/16 18:24; Admin Dose 7.5 MG; Start 08/03/16 at 17:00 Lactobacillus Acidophilus/ Rhamnosus (Culturelle) 1 cap BID PO Last administered on 08/05/16t 09:01; Admin Dose 1 CAP; Start 08/04/16 at 21:00 Azithromycin (Zithromax) 250 mg DAILY PO ; Start 08/06/16 at 09:00 Linagliptin (Tradjenta) 5 mg DAILY PO Last administered on 08/05/16t 15:40; Admin Dose 5 MG; Start 08/05/16 at 14:30 FRANCY YOUNGBLOOD MD Aug 05, 2016 15:45
--- NOTE | 2016-08-05 19:03 | DS ---
DATE OF ADMISSION: 07/27/2016 DATE OF DISCHARGE: 08/05/2016 ADDENDUM The patient refused to go to a correction facility for debility and deconditioning. I advised h im the risk of deconditioning and further decline at home. I did advise them that I cannot monitor his kidneys, his heart, his dyspnea or his INR at the nursing facility. They are aware of the risks of stroke, further decline and deconditioning, pneumonia, etc. Yet, still the patient refuses to g o to a correction facility. The patient wants to go home. Please see original discharge dictation for details. I will call him prescriptions for his new medications. The patient's saturation on room air is 92%. LABORATORY: White cell count of 8, hemoglobin and hematocrit of 10 and 29, platelets of 106. INR 1 .27, subtherapeutic. Digoxin 0.7 daily. Blood sugar is good. Sodium 38, potassium 3.7, chloride 1 06, bicarbonate 25, BUN of 18, creatinine 0.9, glucose of 78. STOPPED MEDICATIONS: 1. Lasix. 2. Potassium. CONTINUED MEDICATIONS: 1. Albuterol every 4 hours as needed. 2. Combivent every 8 hours. 3. Aspirin 81. 4. Lipitor 20. 5. Digoxin 0.125 daily. 6. Colace . 7. Neurontin t.i.d. 8. Lopressor 25 b.i.d. 9. Multivitamin daily. 10. Protonix 40 daily. 11. Zoloft 100 daily. ALTERED MEDICATIONS: Coumadin now 7.5 daily. NEW MEDICATIONS: 1. Singulair. 10. 2. Culturelle 1 capsule b.i.d. 3. Azithromycin 250 daily. I called in [place] for his new medications. Dictated By: BOB PARISI/NTS Conf#: [id number] DID#: [id number]
[2016-08-06] MEDS ORDERED: AZITHROMYCIN 250 MG TAB PO SCH (09:00)
== END 2016-08-05 17:35 | disposition home or self-care (01) | DRG 208 ==
LOC: E/R 14:37 → ICU 17:13 → MS4 07-30 17:22
PROVIDERS: ADMIT Family Medicine; ATTEND Family Medicine
PROC: 5A1945Z Respiratory Ventilation, 24-96 Consecutive Hours (ICD-10-PCS; principal; 2016-07-27)
PROC: 4A023N7 Measurement of Cardiac Sampling and Pressure, Left Heart, Percutaneous Approach (ICD-10-PCS; 2016-08-03)
PROC: B211YZZ Fluoroscopy of Multiple Coronary Arteries using Other Contrast (ICD-10-PCS; 2016-08-03)
DX: J96.01 Acute respiratory failure with hypoxia (principal); I46.8 Cardiac arrest due to other underlying condition; I50.33 Acute on chronic diastolic (congestive) heart failure; J18.9 Pneumonia, unspecified organism; E87.2 Acidosis; E11.65 Type 2 diabetes mellitus with hyperglycemia; D69.6 Thrombocytopenia, unspecified; I24.8 Other forms of acute ischemic heart disease; J44.1 Chronic obstructive pulmonary disease with (acute) exacerbation; I95.9 Hypotension, unspecified; I48.2 Chronic atrial fibrillation; I25.10 Atherosclerotic heart disease of native coronary artery without angina pectoris; I10 Essential (primary) hypertension; E78.5 Hyperlipidemia, unspecified; N19 Unspecified kidney failure; D64.9 Anemia, unspecified; Z79.84 Long term (current) use of oral hypoglycemic drugs; Z79.01 Long term (current) use of anticoagulants; Z87.891 Personal history of nicotine dependence; Z95.3 Presence of xenogenic heart valve
CPT/HCPCS: 31500; 36415; 36600; 70450; 71010; 80048; 80053; 80061; 80162; 80307; 81001; 81003; 82306; 82550; 82553; 82803; 82962; 83036; 83605; 83615; 83735; 84100; 84156; 84439; 84443; 84484; 85025; 85610; 85730; 86850; 86900; 86901; 87040; 87081; 87086; 90686; 93005; 93306; 93454; 94002; 94003; 94640; 94644; 94770; 96374; 96375; J1940; C1769; C1887; C1894; C9113; J0456; J0696; J1250; J1644; J1650; J1815; J2250; J2270; J2543; J2920; J2930; J3010; J3370; J7030; J7040; J7050; Q9967

== ENCOUNTER 2016-08-19 22:50 | Inpatient (IN) | payer MEDICARE, OTHER ==
[~2016-08-19] VITALS: Ht 160 cm; Wt 66.6 kg
[~2016-08-19 22:50] MED LIST changes: +AZIT250T6 PO; -COU5 PO; +COU75 NGT; +ENOX100D2 SC; -FURO-109 PO; +GABA100C14 PO; +LACT1CAP57 PO; -LEVO500T72 PO; +METO25TA4 PO; -METO25TA7 PO; +MONT10TA24 NGT; -MTF1000T PO; -NATE120T12 PO; +SERT100T PO; -TAMS-14 PO; -TIOT18CA IH; -UDROBAC PO; +[UNRECOGNIZED DRUG - CODE] PO
--- NOTE | 2016-08-19 23:05 | ERA ---
ER Documentation Chief Complaint Date/Time DATE: 08/19/16 TIME: 23:04 Chief Complaint Coughing up blood. 07/27/16 pt had RI with [facility]. HPI The patient is a 75-year-old male, presenting to the ER because of hemoptysis for 1 day, about 6 times with a small amount of dark red blood. He also complained of left nasal bleeding today that stopped spontaneously. He had a cardiac arrest last month, was intubated, was discharged on August 05, 2016. He denies any headache, nasal congestion, sore throat, neck pain, chest pain, dyspnea, abdominal pain, vomiting, diarrhea, constipation. He used to smoke until 2013, denies drinking Past medical history: CAD, depression, hypertension, dyslipidemia, COPD, asthma , atrial fibrillation, history of CHF Past surgical history: Mitral valve and aortic valve replacement, cholecystectomy ROS All systems reviewed and are negative except as per history of present illness. Medications Home Meds Active Scripts Azithromycin* (Azithromycin*) 250 Mg Tablet, 250 MG PO DAILY for 2 Days, TAB Prov:BOB PURDY MD 08/05/16 Azithromycin* (Azithromycin*) 250 Mg Tablet, 500 MG PO DAILY for 3 Days, TAB Prov:BOB PURDY MD 08/04/16 Lactobacillus Rhamnosus* (Culturelle*) 1 Each Cap.sprink, 1 CAP PO BID for 7 Days, CAP Prov:BOB PURDY MD 08/04/16 Montelukast Sodium* (Montelukast Sodium*) 10 Mg Tablet, 10 MG NGT HS for 10 Days , TAB Prov:BOB PURDY MD 08/04/16 Warfarin Sodium (Coumadin) 7.5 Mg Tablet, 7.5 MG NGT DAILY@17 for 10 Days, TAB Prov:BOB PURDY MD 08/04/16 Enoxaparin Sodium (Enoxaparin Sodium) 100 Mg/1 Ml Syringe, 85 MG SC Q24H for 7 Days, #14 Prov:BOB PURDY MD 08/04/16 Digoxin* (Digoxin*) 0.125 Mg Tab, 0.125 MG PO DAILY@13, #30 TAB Prov:SANJAY ADAMS NP 03/08/14 Docusate Sodium* (Colace*) 100 Mg Cap, 100 MG PO DAILY, #30 Prov:SANJAY ADAMS [employer] 03/08/14 Reported Medications Multivitamin (One Daily) 1 Each Tablet, 1 EACH PO DAILY, TAB 07/27/16 Gabapentin* (Gabapentin*) 100 Mg Capsule, 200 MG PO TID, #180 CAP 07/27/16 Sertraline Hcl* (Zoloft*) 100 Mg Tablet, 100 MG PO DAILY, #30 TAB 07/27/16 Metoprolol Tartrate* (Lopressor*) 25 Mg Tablet, 25 MG PO BID, #60 TAB 07/27/16 Albuterol Sulfate* (Proair HFA*) 8.5 Gm Hfa.aer.ad, 2 PUFF INH Q4, INH 03/05/14 Pantoprazole (Protonix) 40 Mg Tabec, 40 MG PO DAILY, TAB 03/05/14 Albuterol/Ipratropium* (Combivent Respimat*) 20-100 Mcg/Inh - 4 Gm Aer.w.adap, 1 PUFF IH QID Y for WHEEZING AND SOB, INH 03/05/14 Atorvastatin Calcium* (Atorvastatin Calcium*) 20 Mg Tablet, 20 MG PO HS, TAB 03/05/14 Aspirin (Aspirin) 81 Mg Chew, 81 MG PO DAILY, TAB.CHEW 03/05/14 Allergies Allergies: Coded Allergies: No Known Allergy (Unverified , 08/03/16) per daughters, Romana and Melissa, No Known Allergy. PMhx/Soc History of Surgery: Yes (MITRAL VALVE REPLACEMENT ) Anesthesia Reaction: No Hx 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 Disorder: No Hx Respiratory Disorders: Yes (PNEUMONIA, COPD, ASTHMA) Hx Cardiac Disorders: Yes (AFIB,CHF,HTN,MV REPALCEMNT 2013) Hx Psychiatric Problems: No Hx Alcohol Use: No Hx Substance Use: No Hx Tobacco Use: Yes Physical Exam Vitals Vital Signs Date Time Temp Pulse Resp B/P Pulse Ox O2 Delivery O2 Flow Rate FiO2 08/19/16 22:58 98.3 65 18 100/58 96 Physical Exam Const: No acute distress. Head: Atraumatic. Eyes: Normal Conjunctiva. ENT: Normal External Ears, Nose and Mouth. Neck: Full range of motion. No meningismus. Resp: Clear to auscultation bilaterally. Cardio: Irregularly irregular Abd: Soft, non distended, normal bowel sounds, non tender. Skin: No petechiae or rashes. Back: No midline or flank tenderness. Ext: No cyanosis, or edema. Neur: Awake and alert. No focal deficit Psych: Normal Mood and Affect. Result Diagram: 08/19/16233408/19/165 Results 24 hrs Laboratory Tests Test 08/19/16 23:35 Activated Partial Thromboplast Time 36.5Sec Alanine Aminotransferase (ALT/SGPT) 40IU/L Albumin 4.1g/dl Albumin/Globulin Ratio 1.28 Alkaline Phosphatase 98IU/L Anion Gap 16 Aspartate Amino Transf (AST/SGOT) 45IU/L B-Type Natriuretic Peptide 1740PG/ML Basophils # 0.010^3/ul Basophils % 0.2% Blood Urea Nitrogen 33mg/dl Calcium Level 9.2mg/dl Carbon Dioxide Level 30mmol/L Chloride Level 97mmol/L Creatinine 1.51mg/dl Digoxin Level 1.3ng/ml Direct Bilirubin 0.00mg/dl Eosinophils # 0.210^3/ul Eosinophils % 2.7% Globulin 3.20g/dl Glucose Level 188mg/dl Hematocrit 29.0% Hemoglobin 8.9g/dl INR International Normalized Ratio 1.85 Indirect Bilirubin 0.1mg/dl Lymphocytes # 0.510^3/ul Lymphocytes % 8.9% Mean Corpuscular Hemoglobin 30.3pg Mean Corpuscular Hemoglobin Concent 30.7g/dl Mean Corpuscular Volume 98.6fl Mean Platelet Volume 10.5fl Monocytes # 0.410^3/ul Monocytes % 7.2% Neutrophils # 4.710^3/ul Neutrophils % 80.7% Nucleated Red Blood Cells # 0.010^3/ul Nucleated Red Blood Cells % 0.0/100WBC Platelet Count 39044^3/UL Platelet Estimate PLT APPEAR ADEQUATE Potassium Level 4.5mmol/L Prothrombin Time 21.5Sec Prothrombin Time Ratio 1.7 Red Blood Count 2.9410^6/ul Red Cell Distribution Width 14.8% Sodium Level 138mmol/L Total Bilirubin 0.1mg/dl Total Protein 7.3g/dl Troponin I 0.047ng/ml White Blood Count 5.910^3/ul Procedures/MDM EKG: Read by emergency physician Rate/Rhythm: Atrial fibrillation 68 beats/min QRS, ST, T-waves: No ST elevation, no T inversion Impression: Abnormal EKG [place] [id number] Radiology Main Line: [phone] DIAGNOSTIC IMAGING REPORT Patient: VALERIE JACOBS : 1940 Age: 75 Sex: M MR #: [id number] DOS: 08/19/16 2316 Ordering MD: FRANCY AYALA MD Location: E/R Room/Bed: PROCEDURE: XR Chest. CLINICAL INDICATION: Dyspnea. TECHNIQUE: Single frontal view of the chest was obtained COMPARISON: 07/28/2016. FINDINGS: Cardiomegaly. Bilateral lung base atelectasis. Pulmonary vascular congestion. There is no pleural effusion or pneumothorax. IMPRESSION: Cardiomegaly with pulmonary vascular congestion and bibasilar atelectasis. RPTAT: [facility] Physician Tracy Date Time Electronically viewed and signed by Fernando Ramirez Physician on 08/20/2016 00:41 RS/ CC: FRANCY YAALA MD MEDICAL MAKING DECISION: The patient is a 75-year-old male, presenting with acute hemoptysis, acute CHF, acute kidney injury. His hemoglobin on June 02 was 10, hematocrit was 29.3, creatinine was 0.97. He did not receive any Lasix because he appeared euvolemic and hypotensive. The differential diagnoses considered include but are not limited to fracture ribs, pneumothorax , pulmonary contusion, cardiac contusion, GI bleed Critical Care: Time: 35 minutes excluding all billable procedures. Treatments/Evaluations: Close monitoring and treatment of unstable vital signs, cardiorespiratory, and neurologic status, while maintaining tight balance of fluid, respiratory, and cardiac interventions. Departure Diagnosis: Primary Impression: Hemoptysis Additional Impressions: CHF exacerbation Acute kidney injury Anemia Condition: Stable Comments I discussed the findings with the patient. I discussed the patient with the on- call hospitalist Dr. Adams who was made aware of the lab, the treatment, the patient condition. The patient is admitted to telemetry at 2:40 AM FRANCY AYALA MD Aug 19, 2016 23:05
[2016-08-19 23:52] LABS: ADD SCAN DIFF NO
[2016-08-19 23:57] LABS: ABNORMAL IP MESSAGE 1; BASOPHILS % 0.2 % (0.0-2.0); EOSINOPHILS # 0.2 10^3/ul (0.0-0.5); EOSINOPHILS % 2.7 % (0.0-7.0); HEMOGLOBIN 8.9 g/dl (14.0-18.0); LYMPHOCYTES # 0.5 10^3/ul (0.8-2.9); LYMPHOCYTES % 8.9 % (15.0-51.0); MEAN CORPUSCULAR HEMOGLOBIN 30.3 pg (29.0-33.0); MEAN CORPUSCULAR HGB CONC 30.7 g/dl (32.0-37.0); MEAN CORPUSCULAR VOLUME 98.6 fl (82.0-101.0); MEAN PLATELET VOLUME 10.5 fl (7.4-10.4); MONOCYTE # 0.4 10^3/ul (0.3-0.9); MONOCYTES % 7.2 % (0.0-11.0); NEUTROPHIL # 4.7 10^3/ul (1.6-7.5); NEUTROPHILS % 80.7 % (39.0-77.0); PLATELET COUNT 191 10^3/UL (140-415); RED BLOOD COUNT 2.94 10^6/ul (4.70-6.10); RED CELL DISTRIBUTION WIDTH 14.8 % (11.5-14.5); WHITE BLOOD COUNT 5.9 10^3/ul (4.8-10.8)
[2016-08-20] VITALS (10 sets, daily range): BP systolic 93–117; BP diastolic 54–69; PULSE 58–78; RESP 16–20; Ht 160 cm; Wt 66.6 kg
[2016-08-20 00:06] LABS: ALBUMIN 4.1 g/dl (3.3-4.9)
[2016-08-20 00:07] LABS: POTASSIUM 4.5 mmol/L (3.5-5.1)
[2016-08-20 00:08] LABS: CREATININE 1.51 mg/dl (0.61-1.24)
[2016-08-20 00:09] LABS: ALBUMIN/GLOBULIN RATIO 1.28; BILIRUBIN,INDIRECT 0.1 mg/dl (0-1.1); BILIRUBIN,TOTAL 0.1 mg/dl (0.2-1.3); CALCIUM 9.2 mg/dl (8.4-10.2); TOTAL PROTEIN 7.3 g/dl (6.1-8.1)
[2016-08-20 00:19] LABS: INR 1.85; PROTIME 21.5 Sec (12.2-14.2); PT RATIO 1.7
[2016-08-20 00:20] LABS: PARTIAL THROMBOPLASTIN TIME 36.5 Sec (25.0-35.0)
[2016-08-20 00:21] LABS: TROPONIN-I 0.047 ng/ml (0.00-0.12)
--- NOTE | 2016-08-20 00:41 | RADRPT ---
PROCEDURE: XR Chest. CLINICAL INDICATION: Dyspnea. TECHNIQUE: Single frontal view of the chest was obtained COMPARISON: 07/28/2016. FINDINGS: Cardiomegaly. Bilateral lung base atelectasis. Pulmonary vascular congestion. There is no pleural effusion or pneumothorax. IMPRESSION: Cardiomegaly with pulmonary vascular congestion and bibasilar atelectasis. RPTAT: [facility] Physician Tracy Date Time Electronically viewed and signed by Fernando Ramirez Physician on 08/20/2016 00:41 RS/
[2016-08-20 00:59] LABS: PLATELET ESTIMATE PLT APPEAR ADEQUATE
[2016-08-20] MEDS ORDERED: ONDANSETRON 4 MG INJ IV PRN (05:00)
[2016-08-20] MEDS ORDERED: NON-FORMULARY/PATIENT OWN MED (Albuterol/Ipratropium* (Combivent Respimat*) 1 PUFF) IH PRN (05:30)
[2016-08-20] MEDS ORDERED: FURO40TA4 PO (05:45)
[2016-08-20] MEDS ORDERED: DEXTROSE 50% 50 ML SYRINGE IV PRN ×2 (06:00)
[2016-08-20] MEDS ORDERED: GLUCOSE GEL 15 GRAM TUBE BUCCAL PRN (06:00)
[2016-08-20] MEDS ORDERED: GLUCOSE GEL 15 GRAM TUBE PO PRN ×2 (06:00)
[2016-08-20] MEDS ORDERED: GLUCAGON 1 MG INJ IM PRN (06:00)
[2016-08-20] MEDS: PANTOPRAZOLE (EC) 40 MG TAB PO SCH (06:55)
[2016-08-20] MEDS: FUROSEMIDE 20 MG TAB PO SCH (06:55)
[2016-08-20] MEDS: ACETAMINOPHEN 325 MG TAB PO PRN (07:01)
[2016-08-20 07:49] LABS: ADD SCAN DIFF NO
[2016-08-20] MEDS: INSULIN ASPART [NOVOLOG] 3 ML PEN SC SCH ×4 (08:00→21:00)
[2016-08-20 08:01] LABS: ABNORMAL IP MESSAGE 1; BASOPHILS % 0.4 % (0.0-2.0); EOSINOPHILS # 0.1 10^3/ul (0.0-0.5); EOSINOPHILS % 3.1 % (0.0-7.0); HEMATOCRIT 26.1 % (42.0-52.0); HEMOGLOBIN 8.2 g/dl (14.0-18.0); LYMPHOCYTES # 0.6 10^3/ul (0.8-2.9); LYMPHOCYTES % 12.1 % (15.0-51.0); MEAN CORPUSCULAR HEMOGLOBIN 30.9 pg (29.0-33.0); MEAN CORPUSCULAR HGB CONC 31.4 g/dl (32.0-37.0); MEAN CORPUSCULAR VOLUME 98.5 fl (82.0-101.0); MEAN PLATELET VOLUME 10.4 fl (7.4-10.4); MONOCYTE # 0.4 10^3/ul (0.3-0.9); MONOCYTES % 9.5 % (0.0-11.0); NEUTROPHIL # 3.4 10^3/ul (1.6-7.5); NEUTROPHILS % 74.9 % (39.0-77.0); PLATELET COUNT 159 10^3/UL (140-415); RED BLOOD COUNT 2.65 10^6/ul (4.70-6.10); RED CELL DISTRIBUTION WIDTH 14.8 % (11.5-14.5); WHITE BLOOD COUNT 4.5 10^3/ul (4.8-10.8)
[2016-08-20 08:03] LABS: ALBUMIN 3.3 g/dl (3.3-4.9)
[2016-08-20 08:04] LABS: POTASSIUM 3.7 mmol/L (3.5-5.1)
[2016-08-20 08:06] LABS: BILIRUBIN,INDIRECT 0.2 mg/dl (0-1.1); BILIRUBIN,TOTAL 0.2 mg/dl (0.2-1.3); CREATININE 1.33 mg/dl (0.61-1.24)
[2016-08-20 08:07] LABS: ALBUMIN/GLOBULIN RATIO 1.17; PHOSPHORUS 3.5 mg/dl (2.5-4.9); TOTAL PROTEIN 6.1 g/dl (6.1-8.1)
[2016-08-20 08:08] LABS: CALCIUM 8.9 mg/dl (8.4-10.2); MAGNESIUM 2.1 mg/dl (1.7-2.5)
[2016-08-20] MEDS ORDERED: HEPARIN 5,000 UNIT/0.5 ML SYG SC SCH (09:00)
[2016-08-20] MEDS: METOPROLOL 25 MG TAB PO SCH ×2 (09:00→22:03)
[2016-08-20] MEDS: LACTOBACILLUS RHAMNOSUS CAP PO SCH ×2 (10:00→22:00)
[2016-08-20] MEDS: SERTRALINE 100 MG TAB PO SCH (10:00)
[2016-08-20] MEDS: MULTIVITAMINS THERAPEUTIC TAB PO SCH (10:00)
[2016-08-20] MEDS: GABAPENTIN 300 MG CAP PO SCH ×3 (10:00→22:00)
[2016-08-20] MEDS: DOCUSATE SODIUM 100 MG CAP PO SCH (10:00)
[2016-08-20] MEDS: ALBUTEROL HFA 8 GM INHALER INH SCH ×4 (10:00→23:11)
[2016-08-20] MEDS: ASPIRIN 81 MG TAB PO SCH (10:05)
--- NOTE | 2016-08-20 11:26 | PN ---
Date/Time of Note Date/Time of Note DATE: 08/20/16 TIME: 11:21 Assessment/Plan VTE Prophylaxis VTE Prophylaxis Intervention: other (On warfarin) Assessment/Plan Chief Complaint/Hosp Course Assessment and plan 1. Reported hemoptysis. Patient did report per report patient did have 6 episodes of hemoptysis with red tinged sputum. Suspect secondary to his anticoagulation. No further mildness is reported. Doubt bacterial/viral etiology. Monitor for now. Suspect also may have been from previous intubation from prior admission after patient did suffer from cardiac arrest. Resume anticoagulation should hemoptysis resolved 2. Recent cardiac arrest (2 weeks ago). Continue optimization with his cardiovascular medications. 3. History of acute on chronic decompensated diastolic CHF. Continue on diuretics 4. History of CAD. Continue on antiplatelet therapy. 5. MVR and AVR history. Patient to be continued on Coumadin with careful monitoring of reported hemoptysis 6. History of COPD. No active bronchospasm at its time. Will provide with O2 and bronchodilators as needed 7. History of chronic A. fib. Continue on Coumadin 8. Type 2 diabetes. Previous A1c noted at around 11. Continue on insulin regimen Disposition and plan: Continue to monitor for possible hemoptysis. 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 Monitor H&H. Discussed plan of care with Dr. Damon Problems: Subjective 24 Hr Interval Summary Free Text/Dictation Denies any chest pain. No reports of hemoptysis at this time Exam/Review of Systems Vital Signs Vitals Vital Signs Date Time Temp Pulse Resp B/P Pulse Ox O2 Delivery O2 Flow Rate FiO2 08/20/16 08:24 62 08/20/16 07:36 97.8 16 107/54 99 08/20/16 04:49 Room Air Exam General: Comfortable at present Eyes: Pupils equal round reactive to light Neck: Supple nontender, no JVD Cardiac: S1-S2 auscultated regular rate Pulmonary: No obvious wheezing rhonchi GI: Soft nontender nondistended Extremities: Minimal edema bilateral lower extremities +1 Skin: Scaly skin noted on bilateral lower extremities Neurologic: Alert oriented 3 Results Result Diagram: 08/20/16 0723 08/20/16 0723 Results 24 hrs Laboratory Tests Test 08/19/16 23:35 08/20/16 07:23 08/20/16 08:33 Activated Partial Thromboplast Time 36.5 H Alanine Aminotransferase (ALT/SGPT) 40 38 Albumin 4.1 3.3 Albumin/Globulin Ratio 1.28 1.17 Alkaline Phosphatase 98 85 Anion Gap 16 13 Aspartate Amino Transf (AST/SGOT) 45 37 B-Type Natriuretic Peptide 1740 H Basophils # 0.0 0.0 Basophils % 0.2 0.4 Blood Urea Nitrogen 33 H 31 H Calcium Level 9.2 8.9 Carbon Dioxide Level 30 30 Chloride Level 97 102 Creatinine 1.51 H 1.33 H Digoxin Level 1.3 Direct Bilirubin 0.00 0.00 Eosinophils # 0.2 0.1 Eosinophils % 2.7 3.1 Globulin 3.20 2.80 Glucose Level 188 118 # Hematocrit 29.0 L 26.1 L Hemoglobin 8.9 L 8.2 L INR International Normalized Ratio 1.85 Indirect Bilirubin 0.1 0.2 Lymphocytes # 0.5 L 0.6 L Lymphocytes % 8.9 L 12.1 L Mean Corpuscular Hemoglobin 30.3 30.9 Mean Corpuscular Hemoglobin Concent 30.7 L 31.4 L Mean Corpuscular Volume 98.6 98.5 Mean Platelet Volume 10.5 H 10.4 Monocytes # 0.4 0.4 Monocytes % 7.2 9.5 Neutrophils # 4.7 3.4 Neutrophils % 80.7 H 74.9 Nucleated Red Blood Cells # 0.0 0.0 Nucleated Red Blood Cells % 0.0 0.0 Platelet Count 191 # 159 Platelet Estimate PLT APPEAR ADEQUATE Potassium Level 4.5 3.7 Prothrombin Time 21.5 #H Prothrombin Time Ratio 1.7 Red Blood Count 2.94 L 2.65 L Red Cell Distribution Width 14.8 H 14.8 H Sodium Level 138 141 Total Bilirubin 0.1 L 0.2 Total Protein 7.3 6.1 # Troponin I 0.047 0.031 White Blood Count 5.9 # 4.5 #L Magnesium Level 2.1 Phosphorus Level 3.5 Bedside Glucose 111 Medications Medications Current Medications Acetaminophen (Tylenol Tab) 650 mg Q6H PRN PO pain Last administered on t 07:01; Admin Dose 650 MG; Start 08/20/16 at 05:00 Ondansetron HCl (Zofran Inj) 4 mg Q6H PRN IV nausea/vomiting; Start 08/20/16 at 05:00 Aspirin (Aspirin) 81 mg DAILY PO Last administered on 08/20/16 10:05; Admin Dose 81 MG; Start 08/20/16 at 09:00 Atorvastatin Calcium (Lipitor) 20 mg HS PO ; Start 08/20/16 at 21:00 Digoxin (Digoxin) 0.125 mg DAILY@13 PO ; Start 08/20/16 at 13:00 Docusate Sodium (Colace) 100 mg DAILY PO Last administered on 08/20/16 10:00; Admin Dose 100 MG; Start 08/20/16 at 09:00 Lactobacillus Acidophilus/ Rhamnosus (Culturelle) 1 cap BID PO Last administered on 08/20/16 10:00; Admin Dose 1 CAP; Start 08/20/16 at 09:00 Metoprolol Tartrate (Lopressor) 25 mg BID PO ; Start 08/20/16 at 09:00 Montelukast Sodium (Singulair) 10 mg HS PO ; Start 08/20/16 at 21:00 Pantoprazole (Protonix Tab) 40 mg DAILY@06 PO Last administered on 08/20/16 06: 55; Admin Dose 40 MG; Start 08/20/16 at 06:00 Sertraline HCl (Zoloft) 100 mg DAILY PO Last administered on 08/20/16 10:00; Admin Dose 100 MG; Start 08/20/16 at 09:00 Warfarin Sodium (Coumadin) 7.5 mg DAILY@17 PO ; Start 08/20/16 at 17:00 Multivitamins Therapeutic (Theragran) 1 tab DAILY PO Last administered on 10:00; Admin Dose 1 TAB; Start 08/20/16 at 09:00 Insulin Glargine (Lantus) 10 unit DAILY@20 SC ; Start 08/20/16 at 20:00 Diagnostic Test (Pha) (Accucheck) 1 ea 02 XX ; Start 08/21/16 at 02:00 Furosemide (Lasix) 60 mg DAILY@06 PO Last administered on 08/20/16 06:55; Admin Dose 60 MG; Start 08/20/16 at 06:00 Miscellaneous Information 1 ea NOTE XX ; Start 08/20/16 at 06:00 Glucose (Glutose) 15 gm Q15M PRN PO DECREASED GLUCOSE; Start 08/20/16 at 06:00 Glucose (Glutose) 22.5 gm Q15M PRN PO DECREASED GLUCOSE; Start 08/20/16 at 06:00 Dextrose (D50w Syringe) 25 ml Q15M PRN IV DECREASED GLUCOSE; Start 08/20/16 at 06:00 Dextrose (D50w Syringe) 50 ml Q15M PRN IV DECREASED GLUCOSE; Start 08/20/16 at 06:00 Glucagon (Glucagen) 1 mg Q15M PRN IM DECREASED GLUCOSE; Start 08/20/16 at 06:00 Glucose (Glutose) 15 gm Q15M PRN BUCCAL DECREASED GLUCOSE; Start 08/20/16 at 06: 00 Gabapentin (Neurontin) 300 mg TID PO Last administered on 08/20/16 10:00; Admin Dose 300 MG; Start 08/20/16 at 09:00 EVA PEACE Aug 20, 2016 11:26
[2016-08-20] MEDS: DIGOXIN 0.125 MG TAB PO SCH (14:00)
--- NOTE | 2016-08-20 17:23 | RADRPT ---
PROCEDURE: CT Chest without contrast. CLINICAL INDICATION: Hemoptysis. Myocardial infarction 2 weeks ago. TECHNIQUE: Helical axial sections were obtained through the chest without intravenous contrast enh ancement. Coronal and sagittal reformatted images were obtained from the axial source images. Total exam DLP is 494.99 mGy-cm. CTDIvol is 12.01 mGy. One or more of the following dose reduction yesika hniques were used: Automated exposure control, adjustment of the mA and/or kV according to patient s ize, use of iterative reconstruction technique. COMPARISON: Chest x-ray dated 08/19/2016. FINDINGS: There is atelectasis at both lung bases posteriorly. Mild scarring is present in both upper lobes p osteriorly. The lungs are otherwise clear with no other airspace or interstitial disease. There is no pulmonary nodule or mass lesion. There is no mediastinal or hilar lymphadenopathy or mass. There is no axillary, supraclavicular, or internal mammary lymphadenopathy. The thoracic aorta is not dilated. There is calcification in the wall of the aorta consistent with atherosclerosis. The heart is enlarged. There is enlargement of the right atrium and marked enlargement of the left atrium. A mitral valve replacement and an aortic valve replacement are noted. There is coronary ar sue calcification. There is no pericardial effusion. There are small bilateral pleural effusions. Images through the upper abdomen demonstrate benign bilateral renal cysts. The gallbladder is surgi luiz absent with clips noted in the gallbladder bed. The common bile duct stent is present. There are degenerative changes of the spine and lumbar scoliosis convex right. IMPRESSION: 1. Mild atelectasis at the lung bases posteriorly. 2. Mild scarring in both upper lobes posteriorly. 3. Atherosclerosis. 4. Cardiomegaly with enlargement of the right atrium and marked enlargement of the left atrium. 5. Mitral valve and aortic valve replacements. 6. Coronary artery calcification. 7. Small bilateral pleural effusions. 8. Benign bilateral renal cysts. 9. Status post cholecystectomy. 10. Common bile duct stent. 11. Degenerative changes of the spine and lumbar scoliosis convex right. RPTAT: QQ .Isaias Cabrera MD, MD Date Time Electronically viewed and signed by .Isaias Cabrera MD, MD on 08/20/2016 17:23 .R/
[2016-08-20] MEDS: WARFARIN 7.5 MG TAB PO SCH (18:00)
[2016-08-20] MEDS: INSULIN GLARGINE [LANtus] 3 ML PEN SC SCH (20:24)
[2016-08-20] MEDS: MONTELUKAST 10 MG TAB PO SCH (22:00)
[2016-08-20] MEDS: ATORVASTATIN 20 MG TAB PO SCH (22:00)
--- NOTE | 2016-08-20 23:10 | HP ---
Date/Time of Note Date/Time of Note DATE: 08/20/16 TIME: 23:10 Assessment/Plan VTE Prophylaxis VTE Prophylaxis Intervention: heparin Assessment/Plan Assessment/Plan IMPRESSION 1. Hemoptysis 2. Recent hx Vent dependent Respiratory Failure 3. Hx of CAD 4. Hypertension 5. Acute Kidney Injury 6. COPD 7. Hx of asthma 8. Atrial fibrillation 9. CHF 10. Hx of Mitral valve and aortic valve replacement 11. Depression PLAN - Hemoptysis could be from trauma from recent intubation when he was admitted s/ p cardiac arrest. Will obtain Chest CT and will send sputum for AFB - Monitor hgb closely - Cont home meds with adjustment as needed - Monitor cr closely. Avoid nephrotoxins and renally dose all medications. Will obtain renal u/s and nephrology consult as needed . HPI/ROS Admit Date/Time Admit Date/Time Aug 20, 2016 at 02:43 Hx of Present Illness The patient is a 75-year-old male, with CAD, depression, hypertension, dyslipidemia, COPD, asthma, atrial fibrillation, CHF, Mitral valve and aortic valve replacement presenting to the ER complaining of hemoptysis x 1 day. He said he has had about 6 episodes, described small amount of dark red blood. He also complained of bleeding from left nostril that stopped spontaneously. He was admittedt last month after he presented with Productive cough and wheezing and was intubated, and was discharged on August 05, 2016. At that time, he had an abnormal troponin, but cardiac catheterization did not show any significant disease At the time of discharge, plan was to send him to Rehab/SNF , but he refused. He denies any headache, nasal congestion, sore throat, neck pain, chest pain, dyspnea, abdominal pain, vomiting, diarrhea, constipation. In ER, vitals were stable. hgb 8.9 from 10 two weeks ago. Cr 1.51 from 0.9, two weeks ago. CXR showed Cardiomegaly with pulmonary vascular congestion and bibasilar atelectasis. PMH/Family/Social Past Medical History CAD, depression, hypertension, dyslipidemia, COPD, asthma, atrial fibrillation, history of CHF . Past Surgical History Mitral valve and aortic valve replacement, cholecystectomy . Social History Alcohol Use: occasionally Smoking Status: Former smoker Exam/Review of Systems Vital Signs Vitals Vital Signs Date Time Temp Pulse Resp B/P Pulse Ox O2 Delivery O2 Flow Rate FiO2 08/20/16 20:39 63 08/20/16 15:46 98.1 16 108/55 96 08/20/16 04:49 Room Air Exam Constitutional: alert, oriented, well developed Head: atraumatic, normocephalic Eyes: EOMI, PERRL Neck: non-tender, supple Respiratory: clear to auscultation, normal air movement Cardiovascular: nl pulses, regular rate and rhythm Gastrointestinal: non-tender, soft Extremities: normal pulses Labs Result Diagram: 08/20/1623 08/20/16 0723 Medications Medications Current Medications Acetaminophen (Tylenol Tab) 650 mg Q6H PRN PO pain Last administered on 07:01; Admin Dose 650 MG; Start 08/20/16 at 05:00 Ondansetron HCl (Zofran Inj) 4 mg Q6H PRN IV nausea/vomiting; Start 08/20/16 at 05:00 Aspirin (Aspirin) 81 mg DAILY PO Last administered on 08/20/16 10:05; Admin Dose 81 MG; Start 08/20/16 at 09:00 Atorvastatin Calcium (Lipitor) 20 mg HS PO Last administered on 08/20/16 22:00 ; Admin Dose 20 MG; Start 08/20/16 at 21:00 Digoxin (Digoxin) 0.125 mg DAILY@13 PO ; Start 08/20/16 at 13:00 Docusate Sodium (Colace) 100 mg DAILY PO Last administered on 08/20/16 10:00; Admin Dose 100 MG; Start 08/20/16 at 09:00 Lactobacillus Acidophilus/ Rhamnosus (Culturelle) 1 cap BID PO Last administered on 08/20/16 22:00; Admin Dose 1 CAP; Start 08/20/16 at 09:00 Metoprolol Tartrate (Lopressor) 25 mg BID PO Last administered on 08/20/16 22: 03; Admin Dose 25 MG; Start 08/20/16 at 09:00 Montelukast Sodium (Singulair) 10 mg HS PO Last administered on 08/20/16 22:00 ; Admin Dose 10 MG; Start 08/20/16 at 21:00 Pantoprazole (Protonix Tab) 40 mg DAILY@06 PO Last administered on 08/20/16 06: 55; Admin Dose 40 MG; Start 08/20/16 at 06:00 Sertraline HCl (Zoloft) 100 mg DAILY PO Last administered on 08/20/16 10:00; Admin Dose 100 MG; Start 08/20/16 at 09:00 Warfarin Sodium (Coumadin) 7.5 mg DAILY@17 PO Last administered on 08/20/16 18: 00; Admin Dose 7.5 MG; Start 08/20/16 at 17:00 Multivitamins Therapeutic (Theragran) 1 tab DAILY PO Last administered on 10:00; Admin Dose 1 TAB; Start 08/20/16 at 09:00 Insulin Glargine (Lantus) 10 unit DAILY@20 SC Last administered on 08/20/16 20: 24; Admin Dose 10 UNIT; Start 08/20/16 at 20:00 Diagnostic Test (Pha) (Accucheck) 1 ea 02 XX ; Start 08/21/16 at 02:00 Furosemide (Lasix) 60 mg DAILY@06 PO Last administered on 08/20/16 06:55; Admin Dose 60 MG; Start 08/20/16 at 06:00 Miscellaneous Information 1 ea NOTE XX ; Start 08/20/16 at 06:00 Glucose (Glutose) 15 gm Q15M PRN PO DECREASED GLUCOSE; Start 08/20/16 at 06:00 Glucose (Glutose) 22.5 gm Q15M PRN PO DECREASED GLUCOSE; Start 08/20/16 at 06:00 Dextrose (D50w Syringe) 25 ml Q15M PRN IV DECREASED GLUCOSE; Start 08/20/16 at 06:00 Dextrose (D50w Syringe) 50 ml Q15M PRN IV DECREASED GLUCOSE; Start 08/20/16 at 06:00 Glucagon (Glucagen) 1 mg Q15M PRN IM DECREASED GLUCOSE; Start 08/20/16 at 06:00 Glucose (Glutose) 15 gm Q15M PRN BUCCAL DECREASED GLUCOSE; Start 08/20/16 at 06: 00 Gabapentin (Neurontin) 300 mg TID PO Last administered on 08/20/16 22:00; Admin Dose 300 MG; Start 08/20/16 at 09:00 LANEY HEALY MD Aug 20, 2016 23:10
[2016-08-21] VITALS (13 sets, daily range): BP systolic 99–128; BP diastolic 51–71; PULSE 45–67; RESP 15–20
[2016-08-21] MEDS: ALBUTEROL HFA 8 GM INHALER INH SCH ×3 (01:24→21:00)
[2016-08-21] MEDS: ACCUCHECK XX SCH (02:37)
[2016-08-21] MEDS: PANTOPRAZOLE (EC) 40 MG TAB PO SCH (05:50)
[2016-08-21] MEDS: FUROSEMIDE 20 MG TAB PO SCH (05:51)
[2016-08-21 06:19] LABS: INR 1.95; PROTIME 22.4 Sec (12.2-14.2); PT RATIO 1.8
[2016-08-21] MEDS: INSULIN ASPART [NOVOLOG] 3 ML PEN SC SCH ×4 (07:58→20:30)
[2016-08-21] MEDS: SERTRALINE 100 MG TAB PO SCH (08:35)
[2016-08-21] MEDS: ASPIRIN 81 MG TAB PO SCH (08:35)
[2016-08-21] MEDS: DOCUSATE SODIUM 100 MG CAP PO SCH (08:35)
[2016-08-21] MEDS: LACTOBACILLUS RHAMNOSUS CAP PO SCH ×2 (08:35→20:30)
[2016-08-21] MEDS: GABAPENTIN 300 MG CAP PO SCH ×3 (08:35→20:30)
[2016-08-21] MEDS: METOPROLOL 25 MG TAB PO SCH (08:36)
[2016-08-21] MEDS: MULTIVITAMINS THERAPEUTIC TAB PO SCH (08:36)
[2016-08-21 12:23] LABS: ADD SCAN DIFF NO
[2016-08-21 12:26] LABS: ABNORMAL IP MESSAGE 1; BASOPHILS % 0.4 % (0.0-2.0); EOSINOPHILS # 0.2 10^3/ul (0.0-0.5); EOSINOPHILS % 2.8 % (0.0-7.0); HEMOGLOBIN 8.9 g/dl (14.0-18.0); LYMPHOCYTES # 0.5 10^3/ul (0.8-2.9); MEAN CORPUSCULAR HEMOGLOBIN 30.3 pg (29.0-33.0); MEAN CORPUSCULAR HGB CONC 30.7 g/dl (32.0-37.0); MEAN CORPUSCULAR VOLUME 98.6 fl (82.0-101.0); MEAN PLATELET VOLUME 10.1 fl (7.4-10.4); MONOCYTE # 0.4 10^3/ul (0.3-0.9); MONOCYTES % 7.8 % (0.0-11.0); NEUTROPHIL # 4.2 10^3/ul (1.6-7.5); NEUTROPHILS % 78.8 % (39.0-77.0); PLATELET COUNT 199 10^3/UL (140-415); RED BLOOD COUNT 2.94 10^6/ul (4.70-6.10); RED CELL DISTRIBUTION WIDTH 14.6 % (11.5-14.5); WHITE BLOOD COUNT 5.3 10^3/ul (4.8-10.8)
[2016-08-21] MEDS: DIGOXIN 0.125 MG TAB PO SCH (12:27)
[2016-08-21 12:43] LABS: POTASSIUM 4.5 mmol/L (3.5-5.1)
[2016-08-21 12:46] LABS: CREATININE 1.24 mg/dl (0.61-1.24)
--- NOTE | 2016-08-21 14:33 | PN ---
Date/Time of Note Date/Time of Note DATE: 08/21/16 TIME: 14:24 Assessment/Plan Lines/Catheters IV Catheter Type (from [facility]): Saline Lock Assessment/Plan Chief Complaint/Hosp Course Assessment and plan 1. Reported hemoptysis. Patient did report per report patient did have 6 episodes of hemoptysis with red tinged sputum. Suspect secondary to his anticoagulation. No further mildness is reported. Doubt bacterial/viral etiology. Monitor for now. Suspect also may have been from previous intubation from prior admission after patient did suffer from cardiac arrest. Resume anticoagulation should hemoptysis resolved 2. Recent cardiac arrest (2 weeks ago). Continue optimization with his cardiovascular medications. 3. History of acute on chronic decompensated diastolic CHF. Continue on diuretics 4. History of CAD. Continue on antiplatelet therapy. 5. MVR and AVR history. Patient to be continued on Coumadin with careful monitoring of reported hemoptysis 6. History of COPD. No active bronchospasm at its time. Will provide with O2 and bronchodilators as needed 7. History of chronic A. fib. Continue on Coumadin 8. Type 2 diabetes. Previous A1c noted at around 11. Continue on insulin regimen Disposition and plan: Follow up on AFB. Monitor H&H. Consider cardiology consultation for management of anticoagulation due to extensive cardiac history Discussed plan of care with Dr. Damon Problems: Subjective 24 Hr Interval Summary Free Text/Dictation Comfortable at present. No apparent distress seen at this time. Did report having one episode of hemoptysis this morning Exam/Review of Systems Vital Signs Vitals Vital Signs Date Time Temp Pulse Resp B/P Pulse Ox O2 Delivery O2 Flow Rate FiO2 08/21/16 12:39 61 08/21/16 12:16 98.6 18 128/71 96 08/21/16 04:00 Room Air Intake and Output 08/20/16 08/20/16 08/21/16 14:59 22:59 06:59 Intake Total 100 ml 880 ml 200 ml Balance 100 ml 880 ml 200 ml Exam General: Comfortable at present. No apparent distress Eyes: Pupils equal round Neck: No JVD seen Cardiac: Remains in regular rate, S1-S2 auscultated Pulmonary: No obvious wheezing rhonchi GI: Soft nontender nondistended Extremities: No edema seen bilateral lower extremities Skin: Scaly skin noted on bilateral lower extremities still Neurologic: Alert oriented 3 Results Result Diagram: 08/21/16 1201 08/21/16 1201 Results 24 hrs Laboratory Tests Test 08/20/16 17:12 08/20/16 21:59 08/21/16 05:46 08/21/16 07:36 Bedside Glucose 133 178 137 INR International Normalized Ratio 1.95 Prothrombin Time 22.4 H Prothrombin Time Ratio 1.8 Test 08/21/16 11:59 08/21/16 12:01 Bedside Glucose 192 Anion Gap 14 Basophils # 0.0 Basophils % 0.4 Blood Urea Nitrogen 25 H Calcium Level 9.0 Carbon Dioxide Level 31 Chloride Level 99 Creatinine 1.24 Eosinophils # 0.2 Eosinophils % 2.8 Glucose Level 177 Hematocrit 29.0 L Hemoglobin 8.9 L Lymphocytes # 0.5 L Lymphocytes % 10.0 L Mean Corpuscular Hemoglobin 30.3 Mean Corpuscular Hemoglobin Concent 30.7 L Mean Corpuscular Volume 98.6 Mean Platelet Volume 10.1 Monocytes # 0.4 Monocytes % 7.8 Neutrophils # 4.2 Neutrophils % 78.8 H Nucleated Red Blood Cells # 0.0 Nucleated Red Blood Cells % 0.0 Platelet Count 199 # Potassium Level 4.5 Red Blood Count 2.94 L Red Cell Distribution Width 14.6 H Sodium Level 139 White Blood Count 5.3 Medications Medications Current Medications Acetaminophen (Tylenol Tab) 650 mg Q6H PRN PO pain Last administered on 07:01; Admin Dose 650 MG; Start 08/20/16 at 05:00 Ondansetron HCl (Zofran Inj) 4 mg Q6H PRN IV nausea/vomiting; Start 08/20/16 at 05:00 Aspirin (Aspirin) 81 mg DAILY PO Last administered on 08/21/16 08:35; Admin Dose 81 MG; Start 08/20/16 at 09:00 Atorvastatin Calcium (Lipitor) 20 mg HS PO Last administered on 08/20/16 22:00 ; Admin Dose 20 MG; Start 08/20/16 at 21:00 Digoxin (Digoxin) 0.125 mg DAILY@13 PO ; Start 08/20/16 at 13:00 Docusate Sodium (Colace) 100 mg DAILY PO Last administered on 08/21/16 08:35; Admin Dose 100 MG; Start 08/20/16 at 09:00 Lactobacillus Acidophilus/ Rhamnosus (Culturelle) 1 cap BID PO Last administered on 08/21/16 08:35; Admin Dose 1 CAP; Start 08/20/16 at 09:00 Metoprolol Tartrate (Lopressor) 25 mg BID PO Last administered on 08/21/16 08: 36; Admin Dose 25 MG; Start 08/20/16 at 09:00 Montelukast Sodium (Singulair) 10 mg HS PO Last administered on 08/20/16 22:00 ; Admin Dose 10 MG; Start 08/20/16 at 21:00 Pantoprazole (Protonix Tab) 40 mg DAILY@06 PO Last administered on 08/21/16 05: 50; Admin Dose 40 MG; Start 08/20/16 at 06:00 Sertraline HCl (Zoloft) 100 mg DAILY PO Last administered on 08/21/16 08:35; Admin Dose 100 MG; Start 08/20/16 at 09:00 Warfarin Sodium (Coumadin) 7.5 mg DAILY@17 PO Last administered on 08/20/16 18: 00; Admin Dose 7.5 MG; Start 08/20/16 at 17:00 Multivitamins Therapeutic (Theragran) 1 tab DAILY PO Last administered on 08:36; Admin Dose 1 TAB; Start 08/20/16 at 09:00 Insulin Glargine (Lantus) 10 unit DAILY@20 SC Last administered on 08/20/16 20: 24; Admin Dose 10 UNIT; Start 08/20/16 at 20:00 Diagnostic Test (Pha) (Accucheck) 1 ea 02 XX Last administered on 08/21/16 02: 37; Admin Dose 1 EA; Start 08/21/16 at 02:00 Furosemide (Lasix) 60 mg DAILY@06 PO Last administered on 08/21/16 05:51; Admin Dose 60 MG; Start 08/20/16 at 06:00 Miscellaneous Information 1 ea NOTE XX ; Start 08/20/16 at 06:00 Glucose (Glutose) 15 gm Q15M PRN PO DECREASED GLUCOSE; Start 08/20/16 at 06:00 Glucose (Glutose) 22.5 gm Q15M PRN PO DECREASED GLUCOSE; Start 08/20/16 at 06:00 Dextrose (D50w Syringe) 25 ml Q15M PRN IV DECREASED GLUCOSE; Start 08/20/16 at 06:00 Dextrose (D50w Syringe) 50 ml Q15M PRN IV DECREASED GLUCOSE; Start 08/20/16 at 06:00 Glucagon (Glucagen) 1 mg Q15M PRN IM DECREASED GLUCOSE; Start 08/20/16 at 06:00 Glucose (Glutose) 15 gm Q15M PRN BUCCAL DECREASED GLUCOSE; Start 08/20/16 at 06: 00 Gabapentin (Neurontin) 300 mg TID PO Last administered on 08/21/16 12:28; Admin Dose 300 MG; Start 08/20/16 at 09:00 EVA PEACE Aug 21, 2016 14:33
[2016-08-21] MEDS: WARFARIN 7.5 MG TAB PO SCH (17:30)
--- NOTE | 2016-08-21 19:04 | CONS ---
DATE OF ADMISSION: 08/20/2016 DATE OF CONSULTATION: 08/21/2016 REASON FOR CONSULTATION: The patient with hemoptysis, on Coumadin with history of atrial fibrillation and mitral valve and aortic valve replacement. HISTORY OF PRESENT ILLNESS: The patient is a 75-year-old gentleman who comes in with hemoptysis for the past 4 days. For 4 days he has no other cardiovascular symptoms. Denies any chest pain, shortness of breath, dizziness , syncope or palpitation. No fever, chills or rigors. No nausea or vomiting. PAST MEDICAL HISTORY: Significant for: 1. Coronary artery disease. 2. Atrial fibrillation. 3. Congestive heart failure. 4. Bioprosthetic mitral and aortic valve replacement in 2013. 5. Chronic obstructive pulmonary disease. 6. Dyslipidemia. 7. Hypertension. 8. Depression. 9. Asthma. SOCIAL HISTORY: Drinks alcohol socially. A former smoker. No recreational drugs. ALLERGIES: NONE. CURRENT MEDICATIONS: Include: 1. Metoprolol. 2. Aspirin. 3. Zoloft. 4. Protonix. 5. Lasix. 6. Digoxin. 7. Coumadin. 8. Insulin. 9. Lipitor. 10. Singulair. REVIEW OF SYSTEMS: Unremarkable except that mentioned in the HPI. PHYSICAL EXAMINATION: VITAL SIGNS: Temperature is 98.3, heart rate of 91, blood pressure 102/56 mmHg , breathing at 17 and saturating 92%. GENERAL: Patient awake, alert, and in apparent distress NECK: No JVD seen, no carotid bruit. CARDIOVASCULAR: Irregularly irregular rhythm with a systolic murmur heard in the second right upper intercostal space and left lower sternal border. CHEST: Clear to auscultation. ABDOMEN: Soft. Bowel sounds are present. There is no organomegaly. EXTREMITIES: No pedal edema. Pedal pulses are felt bilaterally. EKG: Shows atrial fibrillation with a ventricular rate of ____ beats per minute , with normal QRS and normal QT intervals with nonspecific ST-T wave changes. DIAGNOSTIC DATA: CT of the chest shows cardiomegaly, small bilateral pleural effusion and atelectasis. Chest x-ray shows bilateral lung atelectasis with pulmonary vascular congestion. LABORATORY DATA: WBC 5.3, hemoglobin 8.9, hematocrit 29 with a platelet of 199. Sodium 139, potassium 4.5, chloride 99, CO2 of 31, BUN 25, creatinine 1.24. ASSESSMENT AND PLAN: A 75-year-old gentleman with: 1. Hemoptysis. 2. Coronary artery disease. 3. Congestive heart failure. 4. Atrial fibrillation. 5. Bioprosthetic mitral and aortic valve replacement. 6. Chronic obstructive pulmonary disease. 7. Asthma. 8. Depression. 9. History of respiratory failure. 10. Hypertension. 11. Dyslipidemia. Patient had recent episode of hemoptysis; however, considering multiple medical problems with multiple medical comorbidities, he is at high risk for stroke and needs to be on Coumadin. No other anticoagulation is clinically indicated in this patient with mitral and aortic valve replacement. 1. Resume Coumadin. Monitor for hemoptysis closely, to Therapeutic INR between 2 and 3. 3. Continue metoprolol. 4. Continue aspirin. 5. Continue Protonix. 6. Continue Lasix. 7. Continue digoxin. 8. Continue insulin. 9. Continue Lipitor. 10. Continue Singulair. 11. Continue nebs as scheduled. Dictated By: NICANOR DE LA CRUZ MD SR/SUDHAKAR Conf#: [id number] DID#: [id number] MTDChica
[2016-08-21] MEDS: INSULIN GLARGINE [LANtus] 3 ML PEN SC SCH (20:29)
[2016-08-21] MEDS: MONTELUKAST 10 MG TAB PO SCH (20:30)
[2016-08-21] MEDS: ATORVASTATIN 20 MG TAB PO SCH (20:30)
[2016-08-22] VITALS (10 sets, daily range): BP systolic 100–119; BP diastolic 50–72; PULSE 52–74; RESP 15–19
[2016-08-22] MEDS: ALBUTEROL HFA 8 GM INHALER INH SCH ×6 (01:00→21:18)
[2016-08-22] MEDS: ACCUCHECK XX SCH (02:00)
[2016-08-22] MEDS: METOPROLOL 25 MG TAB PO SCH ×2 (02:19→09:50)
[2016-08-22] MEDS: PANTOPRAZOLE (EC) 40 MG TAB PO SCH (05:30)
[2016-08-22] MEDS: FUROSEMIDE 20 MG TAB PO SCH (05:30)
[2016-08-22 06:46] LABS: ADD SCAN DIFF NO
[2016-08-22 06:50] LABS: ABNORMAL IP MESSAGE 1; BASOPHILS % 0.5 % (0.0-2.0); EOSINOPHILS # 0.2 10^3/ul (0.0-0.5); HEMATOCRIT 27.2 % (42.0-52.0); HEMOGLOBIN 8.4 g/dl (14.0-18.0); LYMPHOCYTES # 0.5 10^3/ul (0.8-2.9); LYMPHOCYTES % 11.1 % (15.0-51.0); MEAN CORPUSCULAR HEMOGLOBIN 30.4 pg (29.0-33.0); MEAN CORPUSCULAR HGB CONC 30.9 g/dl (32.0-37.0); MEAN CORPUSCULAR VOLUME 98.6 fl (82.0-101.0); MONOCYTE # 0.4 10^3/ul (0.3-0.9); MONOCYTES % 9.4 % (0.0-11.0); NEUTROPHILS % 74.8 % (39.0-77.0); PLATELET COUNT 177 10^3/UL (140-415); RED BLOOD COUNT 2.76 10^6/ul (4.70-6.10); RED CELL DISTRIBUTION WIDTH 14.4 % (11.5-14.5)
[2016-08-22 07:05] LABS: POTASSIUM 4.2 mmol/L (3.5-5.1)
[2016-08-22 07:07] LABS: CREATININE 1.22 mg/dl (0.61-1.24)
[2016-08-22 07:08] LABS: CALCIUM 9.1 mg/dl (8.4-10.2)
[2016-08-22] MEDS: INSULIN ASPART [NOVOLOG] 3 ML PEN SC SCH ×4 (08:00→21:00)
[2016-08-22] MEDS: LACTOBACILLUS RHAMNOSUS CAP PO SCH ×2 (09:49→21:18)
[2016-08-22] MEDS: ASPIRIN 81 MG TAB PO SCH (09:49)
[2016-08-22] MEDS: GABAPENTIN 300 MG CAP PO SCH ×3 (09:49→21:18)
[2016-08-22] MEDS: SERTRALINE 100 MG TAB PO SCH (09:49)
[2016-08-22] MEDS: MULTIVITAMINS THERAPEUTIC TAB PO SCH (09:49)
[2016-08-22] MEDS: DOCUSATE SODIUM 100 MG CAP PO SCH (09:49)
[2016-08-22] MEDS: DIGOXIN 0.125 MG TAB PO SCH (13:04)
--- NOTE | 2016-08-22 13:43 | PN ---
Date/Time of Note Date/Time of Note DATE: 08/22/16 TIME: 13:35 Assessment/Plan VTE Prophylaxis VTE Prophylaxis Intervention: other (coumadin) Lines/Catheters IV Catheter Type (from Nrsg): Saline Lock Assessment/Plan Assessment/Plan 1. Hemoptysis. likely coumadin related, resolved 2. Recent cardiac arrest (2 weeks ago). Continue optimization with his cardiovascular medications. 3. Acute on chronic decompensated diastolic CHF. Continue on diuretics 4. CAD. Continue on antiplatelet therapy. 5. s/p mechanical MVR and AVR on Coumadin, awaiting for INR goes up to 2.5-3.5 6. COPD. stable 7. A. fib. on metoprolol, digoxin and Coumadin 8. Type 2 diabetes. Previous A1c noted at around 11. Continue on insulin regimen 9. Normocytic anemia, stable Subjective 24 Hr Interval Summary Free Text/Dictation no hemoptysis, no shortness of breath Exam/Review of Systems Vital Signs Vitals Vital Signs Date Time Temp Pulse Resp B/P Pulse Ox O2 Delivery O2 Flow Rate FiO2 08/22/16 12:14 98.0 76 18 105/55 98 08/21/16 04:00 Room Air Intake and Output 08/21/16 08/21/16 08/22/16 15:00 23:00 07:00 Intake Total 950 ml 550 ml Balance 950 ml 550 ml Exam Constitutional: alert, oriented, well developed Psych: nl mood/affect, no complaints Head: atraumatic, normocephalic Eyes: EOMI, PERRL, nl conjunctiva, nl lids ENMT: nl external ears & nose, nl lips & teeth, nl nasal mucosa & septum Neck: non-tender, supple Respiratory: clear to auscultation, normal air movement, No congested cough, No crackles/rales, No diminished breath sounds, No intercostal retraction, No labored breathing, No other, No respirations, No tactile fremitus, No wheezing Cardiovascular: irregular rhythm, nl pulses, No S3, No S4, No bruits, No diastolic murmur, No edema, No gallop, No jugular venous distention (JVD), No murmurs/extra sounds, No other, No rub, No systolic murmur Gastrointestinal: nl liver, spleen, non-tender, soft, No ascites, No bowel sounds, No distended, No firm, No hepatomegaly, No mass , No other, No rebound or guarding, No splenomegaly, No surgical scars, No tender Musculoskeletal: nl extremities to inspection Extremities: normal pulses, No calf tenderness, No clubbing, No cyanosis, No edema, No other, No palpable cord, No pitting pedal edema, No tenderness 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: CONSOLIDATION ACCOUNTANT II-XII intact, nl mental status, nl speech, nl strength Skin: nl turgor Lymph: nl lymph nodes Results Result Diagram: 08/22/1655408/22/16 0555 Results 24 hrs Laboratory Tests Test 08/21/16 16:47 08/21/16 20:26 08/22/16 05:55 08/22/16 07:49 Bedside Glucose 82 175 117 Anion Gap 14 Basophils # 0.0 Basophils % 0.5 Blood Urea Nitrogen 24 H Calcium Level 9.1 Carbon Dioxide Level 30 Chloride Level 101 Creatinine 1.22 Eosinophils # 0.2 Eosinophils % 4.0 Glucose Level 142 Hematocrit 27.2 L Hemoglobin 8.4 L Lymphocytes # 0.5 L Lymphocytes % 11.1 L Mean Corpuscular Hemoglobin 30.4 Mean Corpuscular Hemoglobin Concent 30.9 L Mean Corpuscular Volume 98.6 Mean Platelet Volume 10.0 Monocytes # 0.4 Monocytes % 9.4 Neutrophils # 3.0 Neutrophils % 74.8 Nucleated Red Blood Cells # 0.0 Nucleated Red Blood Cells % 0.0 Platelet Count 177 Potassium Level 4.2 Red Blood Count 2.76 L Red Cell Distribution Width 14.4 Sodium Level 141 White Blood Count 4.0 #L Test 08/22/16 12:04 Bedside Glucose 117 Medications Medications Current Medications Acetaminophen (Tylenol Tab) 650 mg Q6H PRN PO pain Last administered on 07:01; Admin Dose 650 MG; Start 08/20/16 at 05:00 Ondansetron HCl (Zofran Inj) 4 mg Q6H PRN IV nausea/vomiting; Start 08/20/16 at 05:00 Aspirin (Aspirin) 81 mg DAILY PO Last administered on 08/22/16 09:49; Admin Dose 81 MG; Start 08/20/16 at 09:00 Atorvastatin Calcium (Lipitor) 20 mg HS PO Last administered on 08/21/16 20:30 ; Admin Dose 20 MG; Start 08/20/16 at 21:00 Digoxin (Digoxin) 0.125 mg DAILY@13 PO Last administered on 08/22/16 13:04; Admin Dose 0.125 MG; Start 08/20/16 at 13:00 Docusate Sodium (Colace) 100 mg DAILY PO Last administered on 08/22/16 09:49; Admin Dose 100 MG; Start 08/20/16 at 09:00 Lactobacillus Acidophilus/ Rhamnosus (Culturelle) 1 cap BID PO Last administered on 08/22/16 09:49; Admin Dose 1 CAP; Start 08/20/16 at 09:00 Metoprolol Tartrate (Lopressor) 25 mg BID PO Last administered on 08/22/16 09: 50; Admin Dose 25 MG; Start 08/20/16 at 09:00 Montelukast Sodium (Singulair) 10 mg HS PO Last administered on 08/21/16 20:30 ; Admin Dose 10 MG; Start 08/20/16 at 21:00 Pantoprazole (Protonix Tab) 40 mg DAILY@06 PO Last administered on 08/22/16 05: 30; Admin Dose 40 MG; Start 08/20/16 at 06:00 Sertraline HCl (Zoloft) 100 mg DAILY PO Last administered on 08/22/16 09:49; Admin Dose 100 MG; Start 08/20/16 at 09:00 Warfarin Sodium (Coumadin) 7.5 mg DAILY@17 PO Last administered on 08/21/16 17: 30; Admin Dose 7.5 MG; Start 08/20/16 at 17:00 Multivitamins Therapeutic (Theragran) 1 tab DAILY PO Last administered on 09:49; Admin Dose 1 TAB; Start 08/20/16 at 09:00 Insulin Glargine (Lantus) 10 unit DAILY@20 SC Last administered on 08/21/16 20: 29; Admin Dose 10 UNIT; Start 08/20/16 at 20:00 Diagnostic Test (Pha) (Accucheck) 1 ea 02 XX Last administered on 08/21/16 02: 37; Admin Dose 1 EA; Start 08/21/16 at 02:00 Furosemide (Lasix) 60 mg DAILY@06 PO Last administered on 08/22/16 05:30; Admin Dose 60 MG; Start 3/4/17 at 06:00 Miscellaneous Information 1 ea NOTE XX ; Start 08/20/16 at 06:00 Glucose (Glutose) 15 gm Q15M PRN PO DECREASED GLUCOSE; Start 08/20/16 at 06:00 Glucose (Glutose) 22.5 gm Q15M PRN PO DECREASED GLUCOSE; Start 08/20/16 at 06:00 Dextrose (D50w Syringe) 25 ml Q15M PRN IV DECREASED GLUCOSE; Start 08/20/16 at 06:00 Dextrose (D50w Syringe) 50 ml Q15M PRN IV DECREASED GLUCOSE; Start 08/20/16 at 06:00 Glucagon (Glucagen) 1 mg Q15M PRN IM DECREASED GLUCOSE; Start 08/20/16 at 06:00 Glucose (Glutose) 15 gm Q15M PRN BUCCAL DECREASED GLUCOSE; Start 08/20/16 at 06: 00 Gabapentin (Neurontin) 300 mg TID PO Last administered on 08/22/16 13:02; Admin Dose 300 MG; Start 08/20/16 at 09:00 ERICA GONZALEZ MD Aug 22, 2016 13:43
--- NOTE | 2016-08-22 16:21 | CONS ---
Date/Time of Note Date/Time of Note DATE: 08/22/16 TIME: 16:13 Assessment/Plan Assessment/Plan Chief Complaint/Hosp Course ASSESSMENT AND PLAN: A 75-year-old gentleman with: 1. Hemoptysis. 2. Coronary artery disease s/p C 08/05 with no sig obstructive disease 3. Congestive heart failure-diastolci acute on chronic 4. Atrial fibrillation-rate controlled 5. Bioprosthetic mitral valve replacement. 6. Chronic obstructive pulmonary disease. 7. Asthma. 8. Depression. 10. Hypertension. 11. Dyslipidemia. Recc: -Tele -serial ecg's -Continue asa/statin -Continue digoxin/BB -Contineu couamdin loading and follow INR closely and follow for recurrent hemoptysis Problems: Consultation Date/Type/Reason Admit Date/Time Aug 20, 2016 at 02:43 Initial Consult Date 08/21/2016 Type of Consultation: Cardiology Reason for Consultation AF Referring Provider: LEANDRO RODRIGUEZ MD Exam/Review of Systems Vital Signs Vitals Vital Signs Date Time Temp Pulse Resp B/P Pulse Ox O2 Delivery O2 Flow Rate FiO2 08/22/16 13:39 68 08/22/16 12:14 98.0 18 105/55 98 08/21/16 04:00 Room Air Intake and Output 08/21/16 08/21/16 08/22/16 15:00 23:00 07:00 Intake Total 950 ml 550 ml Balance 950 ml 550 ml Exam Review of Systems: CONSTITUTIONAL: No fevers, chills. PULMONARY: No sob CARDIOVASCULAR: No chest pain/palpitations GASTROINTESTINAL: No nausea/vomiting. GENITOURINARY: No hematuria/dysuria. MUSCULOSKELETAL: No myagias/arthalgias. PSYCHIATRIC: The patient denies depression. NEUROLOGIC: No weakness Constitutional: alert, oriented Psych: no complaints Head: normocephalic ENMT: mucosa pink and moist Neck: jvd (8-9 cm water), supple Respiratory: clear to auscultation Cardiovascular: regular rate and rhythm Gastrointestinal: non-tender, soft Musculoskeletal: muscle tone (normal) Extremities: edema 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: other (No focal deficits) Results Result Diagram: 08/22/16 0555 08/22/16 0555 Results 24 hrs Laboratory Tests Test 08/21/16 16:47 08/21/16 20:26 08/22/16 05:55 08/22/16 07:49 Bedside Glucose 82 175 117 Anion Gap 14 Basophils # 0.0 Basophils % 0.5 Blood Urea Nitrogen 24 H Calcium Level 9.1 Carbon Dioxide Level 30 Chloride Level 101 Creatinine 1.22 Eosinophils # 0.2 Eosinophils % 4.0 Glucose Level 142 Hematocrit 27.2 L Hemoglobin 8.4 L Lymphocytes # 0.5 L Lymphocytes % 11.1 L Mean Corpuscular Hemoglobin 30.4 Mean Corpuscular Hemoglobin Concent 30.9 L Mean Corpuscular Volume 98.6 Mean Platelet Volume 10.0 Monocytes # 0.4 Monocytes % 9.4 Neutrophils # 3.0 Neutrophils % 74.8 Nucleated Red Blood Cells # 0.0 Nucleated Red Blood Cells % 0.0 Platelet Count 177 Potassium Level 4.2 Red Blood Count 2.76 L Red Cell Distribution Width 14.4 Sodium Level 141 White Blood Count 4.0 #L Test 08/22/16 12:04 Bedside Glucose 117 Medications Medications Current Medications Acetaminophen (Tylenol Tab) 650 mg Q6H PRN PO pain Last administered on 07:01; Admin Dose 650 MG; Start 08/20/16 at 05:00 Ondansetron HCl (Zofran Inj) 4 mg Q6H PRN IV nausea/vomiting; Start 08/20/16 at 05:00 Aspirin (Aspirin) 81 mg DAILY PO Last administered on 08/22/16 09:49; Admin Dose 81 MG; Start 08/20/16 at 09:00 Atorvastatin Calcium (Lipitor) 20 mg HS PO Last administered on 08/21/16 20:30 ; Admin Dose 20 MG; Start 08/20/16 at 21:00 Digoxin (Digoxin) 0.125 mg DAILY@13 PO Last administered on 08/22/16 13:04; Admin Dose 0.125 MG; Start 08/20/16 at 13:00 Docusate Sodium (Colace) 100 mg DAILY PO Last administered on 08/22/16 09:49; Admin Dose 100 MG; Start 08/20/16 at 09:00 Lactobacillus Acidophilus/ Rhamnosus (Culturelle) 1 cap BID PO Last administered on 08/22/16 09:49; Admin Dose 1 CAP; Start 08/20/16 at 09:00 Metoprolol Tartrate (Lopressor) 25 mg BID PO Last administered on 08/22/16 09: 50; Admin Dose 25 MG; Start 08/20/16 at 09:00 Montelukast Sodium (Singulair) 10 mg HS PO Last administered on 08/21/16 20:30 ; Admin Dose 10 MG; Start 08/20/16 at 21:00 Pantoprazole (Protonix Tab) 40 mg DAILY@06 PO Last administered on 08/22/16 05: 30; Admin Dose 40 MG; Start 08/20/16 at 06:00 Sertraline HCl (Zoloft) 100 mg DAILY PO Last administered on 08/22/16 09:49; Admin Dose 100 MG; Start 08/20/16 at 09:00 Warfarin Sodium (Coumadin) 7.5 mg DAILY@17 PO Last administered on 08/21/16 17: 30; Admin Dose 7.5 MG; Start 08/20/16 at 17:00 Multivitamins Therapeutic (Theragran) 1 tab DAILY PO Last administered on 09:49; Admin Dose 1 TAB; Start 08/20/16 at 09:00 Insulin Glargine (Lantus) 10 unit DAILY@20 SC Last administered on 08/21/16 20: 29; Admin Dose 10 UNIT; Start 08/20/16 at 20:00 Diagnostic Test (Pha) (Accucheck) 1 ea 02 XX Last administered on 08/21/16 02: 37; Admin Dose 1 EA; Start 08/21/16 at 02:00 Furosemide (Lasix) 60 mg DAILY@06 PO Last administered on 08/22/16 05:30; Admin Dose 60 MG; Start 08/20/16 at 06:00 Miscellaneous Information 1 ea NOTE XX ; Start 08/20/16 at 06:00 Glucose (Glutose) 15 gm Q15M PRN PO DECREASED GLUCOSE; Start 08/20/16 at 06:00 Glucose (Glutose) 22.5 gm Q15M PRN PO DECREASED GLUCOSE; Start 08/20/16 at 06:00 Dextrose (D50w Syringe) 25 ml Q15M PRN IV DECREASED GLUCOSE; Start 08/20/16 at 06:00 Dextrose (D50w Syringe) 50 ml Q15M PRN IV DECREASED GLUCOSE; Start 08/20/16 at 06:00 Glucagon (Glucagen) 1 mg Q15M PRN IM DECREASED GLUCOSE; Start 08/20/16 at 06:00 Glucose (Glutose) 15 gm Q15M PRN BUCCAL DECREASED GLUCOSE; Start 08/20/16 at 06: 00 Gabapentin (Neurontin) 300 mg TID PO Last administered on 08/22/16 13:02; Admin Dose 300 MG; Start 08/20/16 at 09:00 ESTEFANI BORREGO Aug 22, 2016 16:21
[2016-08-22] MEDS: WARFARIN 7.5 MG TAB PO SCH (16:45)
[2016-08-22] MEDS: INSULIN GLARGINE [LANtus] 3 ML PEN SC SCH (21:17)
[2016-08-22] MEDS: MONTELUKAST 10 MG TAB PO SCH (21:18)
[2016-08-22] MEDS: ATORVASTATIN 20 MG TAB PO SCH (21:18)
[2016-08-22] MEDS: ACETAMINOPHEN 325 MG TAB PO PRN (21:27)
[2016-08-23] VITALS (11 sets, daily range): BP systolic 87–122; BP diastolic 51–68; PULSE 51–69; RESP 16–20
[2016-08-23] MEDS: ACCUCHECK XX SCH (02:00)
[2016-08-23] MEDS: ALBUTEROL HFA 8 GM INHALER INH SCH ×6 (02:11→21:27)
[2016-08-23] MEDS: METOPROLOL 25 MG TAB PO SCH ×3 (02:28→21:26)
[2016-08-23] MEDS: PANTOPRAZOLE (EC) 40 MG TAB PO SCH (05:33)
[2016-08-23] MEDS: FUROSEMIDE 20 MG TAB PO SCH (05:34)
[2016-08-23] MEDS: ACETAMINOPHEN 325 MG TAB PO PRN (05:39)
[2016-08-23] MEDS: INSULIN ASPART [NOVOLOG] 3 ML PEN SC SCH ×4 (08:00→21:00)
[2016-08-23] MEDS: DOCUSATE SODIUM 100 MG CAP PO SCH (08:08)
[2016-08-23] MEDS: GABAPENTIN 300 MG CAP PO SCH ×3 (08:09→21:29)
[2016-08-23] MEDS: ASPIRIN 81 MG TAB PO SCH (08:09)
[2016-08-23] MEDS: MULTIVITAMINS THERAPEUTIC TAB PO SCH (08:09)
[2016-08-23] MEDS: SERTRALINE 100 MG TAB PO SCH (08:09)
[2016-08-23] MEDS: LACTOBACILLUS RHAMNOSUS CAP PO SCH ×2 (08:09→21:28)
[2016-08-23 08:22] LABS: INR 1.84; PROTIME 21.4 Sec (12.2-14.2); PT RATIO 1.7
[2016-08-23] MEDS: DIGOXIN 0.125 MG TAB PO SCH (12:11)
--- NOTE | 2016-08-23 14:26 | PN ---
Date/Time of Note Date/Time of Note DATE: 08/23/16 TIME: 14:24 Assessment/Plan VTE Prophylaxis VTE Prophylaxis Intervention: other (coumadin) Lines/Catheters IV Catheter Type (from Nrsg): Saline Lock Assessment/Plan Assessment/Plan 1. Hemoptysis. likely coumadin related, resolved 2. Recent cardiac arrest (2 weeks ago). Continue optimization with his cardiovascular medications. 3. Acute on chronic decompensated diastolic CHF. Continue on diuretics 4. CAD. Continue on antiplatelet therapy. 5. s/p mechanical MVR and AVR increase Coumadin, awaiting for INR goes up to 2.5-3.5 6. COPD. stable 7. A. fib. on metoprolol, digoxin and Coumadin 8. Type 2 diabetes. Previous A1c noted at around 11. Continue on insulin regimen 9. Normocytic anemia, stable Subjective 24 Hr Interval Summary Free Text/Dictation no hemoptysis Exam/Review of Systems Vital Signs Vitals Vital Signs Date Time Temp Pulse Resp B/P Pulse Ox O2 Delivery O2 Flow Rate FiO2 08/23/16 12:13 51 08/23/16 11:55 98.3 18 102/59 95 08/23/16 02:25 Room Air Intake and Output 08/22/16 08/22/16 08/23/16 15:00 23:00 07:00 Intake Total 650 ml Balance 650 ml Exam Constitutional: alert, oriented, well developed Psych: nl mood/affect, no complaints Head: atraumatic, normocephalic Eyes: EOMI, PERRL, nl conjunctiva, nl lids ENMT: nl external ears & nose, nl lips & teeth, nl nasal mucosa & septum Neck: non-tender, supple Respiratory: clear to auscultation, normal air movement, No congested cough, No crackles/rales, No diminished breath sounds, No intercostal retraction, No labored breathing, No other, No respirations, No tactile fremitus, No wheezing Cardiovascular: irregular rhythm, nl pulses, No S3, No S4, No bruits, No diastolic murmur, No edema, No gallop, No jugular venous distention (JVD), No murmurs/extra sounds, No other, No rub, No systolic murmur Gastrointestinal: nl liver, spleen, non-tender, soft, No ascites, No bowel sounds, No distended, No firm, No hepatomegaly, No mass , No other, No rebound or guarding, No splenomegaly, No surgical scars, No tender Musculoskeletal: nl extremities to inspection Extremities: normal pulses, No calf tenderness, No clubbing, No cyanosis, No edema, No other, No palpable cord, No pitting pedal edema, No tenderness 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: ON SITE PROPERTY MANAGER II-XII intact, nl mental status, nl speech, nl strength Skin: nl turgor Lymph: nl lymph nodes Results Result Diagram: 08/22/1655 08/22/1655 Results 24 hrs Laboratory Tests Test 08/22/16 16:44 08/22/16 20:51 08/23/16 07:10 08/23/16 07:37 Bedside Glucose 149 126 86 INR International Normalized Ratio 1.84 Prothrombin Time 21.4 H Prothrombin Time Ratio 1.7 Test 08/23/16 11:30 Bedside Glucose 163 Medications Medications Current Medications Acetaminophen (Tylenol Tab) 650 mg Q6H PRN PO pain Last administered on 05:39; Admin Dose 650 MG; Start 08/20/16 at 05:00 Ondansetron HCl (Zofran Inj) 4 mg Q6H PRN IV nausea/vomiting; Start 08/20/16 at 05:00 Aspirin (Aspirin) 81 mg DAILY PO Last administered on 08/23/16 08:09; Admin Dose 81 MG; Start 08/20/16 at 09:00 Atorvastatin Calcium (Lipitor) 20 mg HS PO Last administered on 08/22/16 21:18 ; Admin Dose 20 MG; Start 08/20/16 at 21:00 Digoxin (Digoxin) 0.125 mg DAILY@13 PO Last administered on 08/22/16 13:04; Admin Dose 0.125 MG; Start 08/20/16 at 13:00 Docusate Sodium (Colace) 100 mg DAILY PO Last administered on 08/23/16 08:08; Admin Dose 100 MG; Start 08/20/16 at 09:00 Lactobacillus Acidophilus/ Rhamnosus (Culturelle) 1 cap BID PO Last administered on 08/23/16 08:09; Admin Dose 1 CAP; Start 08/20/16 at 09:00 Metoprolol Tartrate (Lopressor) 25 mg BID PO Last administered on 08/23/16 08: 09; Admin Dose 25 MG; Start 08/20/16 at 09:00 Montelukast Sodium (Singulair) 10 mg HS PO Last administered on 08/22/16 21:18 ; Admin Dose 10 MG; Start 08/20/16 at 21:00 Pantoprazole (Protonix Tab) 40 mg DAILY@06 PO Last administered on 08/23/16 05: 33; Admin Dose 40 MG; Start 08/20/16 at 06:00 Sertraline HCl (Zoloft) 100 mg DAILY PO Last administered on 08/23/16 08:09; Admin Dose 100 MG; Start 08/20/16 at 09:00 Warfarin Sodium (Coumadin) 7.5 mg DAILY@17 PO Last administered on 08/22/16 16: 45; Admin Dose 7.5 MG; Start 08/20/16 at 17:00 Multivitamins Therapeutic (Theragran) 1 tab DAILY PO Last administered on 08:09; Admin Dose 1 TAB; Start 08/20/16 at 09:00 Insulin Glargine (Lantus) 10 unit DAILY@20 SC Last administered on 08/22/16 21: 17; Admin Dose 10 UNIT; Start 08/20/16 at 20:00 Diagnostic Test (Pha) (Accucheck) 1 ea 02 XX Last administered on 08/21/16 02: 37; Admin Dose 1 EA; Start 08/21/16 at 02:00 Furosemide (Lasix) 60 mg DAILY@06 PO Last administered on 08/23/16 05:34; Admin Dose 60 MG; Start 08/20/16 at 06:00 Miscellaneous Information 1 ea NOTE XX ; Start 08/20/16 at 06:00 Glucose (Glutose) 15 gm Q15M PRN PO DECREASED GLUCOSE; Start 08/20/16 at 06:00 Glucose (Glutose) 22.5 gm Q15M PRN PO DECREASED GLUCOSE; Start 08/20/16 at 06:00 Dextrose (D50w Syringe) 25 ml Q15M PRN IV DECREASED GLUCOSE; Start 08/20/16 at 06:00 Dextrose (D50w Syringe) 50 ml Q15M PRN IV DECREASED GLUCOSE; Start 08/20/16 at 06:00 Glucagon (Glucagen) 1 mg Q15M PRN IM DECREASED GLUCOSE; Start 08/20/16 at 06:00 Glucose (Glutose) 15 gm Q15M PRN BUCCAL DECREASED GLUCOSE; Start 08/20/16 at 06: 00 Gabapentin (Neurontin) 300 mg TID PO Last administered on 08/23/16 12:10; Admin Dose 300 MG; Start 08/20/16 at 09:00 ERICA GONZALEZ MD Aug 23, 2016 14:26
[2016-08-23] MEDS ORDERED: WARFARIN 2 MG TAB PO SCH (17:00)
--- NOTE | 2016-08-23 18:49 | CONS ---
Date/Time of Note Date/Time of Note DATE: 08/23/16 TIME: 18:45 Assessment/Plan Assessment/Plan Chief Complaint/Hosp Course ASSESSMENT AND PLAN: A 75-year-old gentleman with: 1. Hemoptysis. 2. Coronary artery disease s/p C 08/05 with no sig obstructive disease 3. Congestive heart failure-diastolci acute on chronic 4. Atrial fibrillation-rate controlled 5. Bioprosthetic mitral valve replacement. 6. Chronic obstructive pulmonary disease. 7. Asthma. 8. Depression. 10. Hypertension. 11. Dyslipidemia. Recc: -Tele -serial ecg's -Continue asa/statin -Continue digoxin/BB -Continue coumadin loading and follow INR goal 2-3 closely and follow for recurrent hemoptysis Problems: Consultation Date/Type/Reason Admit Date/Time Aug 20, 2016 at 02:43 Initial Consult Date 08/21/2016 Type of Consultation: Cardiology Reason for Consultation AF/MVR Referring Provider: LEANDRO RODRIGUEZ MD Exam/Review of Systems Vital Signs Vitals Vital Signs Date Time Temp Pulse Resp B/P Pulse Ox O2 Delivery O2 Flow Rate FiO2 08/23/16 16:15 98.1 65 20 102/51 94 08/23/16 02:25 Room Air Intake and Output 08/22/16 08/22/16 08/23/16 15:00 23:00 07:00 Intake Total 650 ml Balance 650 ml Exam Review of Systems: CONSTITUTIONAL: No fevers, chills. PULMONARY: No sob CARDIOVASCULAR: No chest pain/palpitations GASTROINTESTINAL: No nausea/vomiting. GENITOURINARY: No hematuria/dysuria. MUSCULOSKELETAL: No myagias/arthalgias. PSYCHIATRIC: The patient denies depression. NEUROLOGIC: No weakness Constitutional: alert, oriented Psych: no complaints Head: normocephalic ENMT: mucosa pink and moist Neck: jvd (8 cm water), supple Respiratory: diminished breath sounds (at bases/B) Cardiovascular: irregular rhythm Gastrointestinal: non-tender, soft Musculoskeletal: muscle tone Extremities: edema (none) 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: other (No focal deficits) Results Result Diagram: 08/22/16 0555 08/22/16 0555 Results 24 hrs Laboratory Tests Test 08/22/16 20:51 08/23/16 07:10 08/23/16 07:37 08/23/16 11:30 Bedside Glucose 126 86 163 INR International Normalized Ratio 1.84 Prothrombin Time 21.4 H Prothrombin Time Ratio 1.7 Test 08/23/16 17:07 Bedside Glucose 137 Medications Medications Current Medications Acetaminophen (Tylenol Tab) 650 mg Q6H PRN PO pain Last administered on 05:39; Admin Dose 650 MG; Start 08/20/16 at 05:00 Ondansetron HCl (Zofran Inj) 4 mg Q6H PRN IV nausea/vomiting; Start 08/20/16 at 05:00 Aspirin (Aspirin) 81 mg DAILY PO Last administered on 08/23/16 08:09; Admin Dose 81 MG; Start 08/20/16 at 09:00 Atorvastatin Calcium (Lipitor) 20 mg HS PO Last administered on 08/22/16 21:18 ; Admin Dose 20 MG; Start 08/20/16 at 21:00 Digoxin (Digoxin) 0.125 mg DAILY@13 PO Last administered on 08/22/16 13:04; Admin Dose 0.125 MG; Start 08/20/16 at 13:00 Docusate Sodium (Colace) 100 mg DAILY PO Last administered on 08/23/16 08:08; Admin Dose 100 MG; Start 08/20/16 at 09:00 Lactobacillus Acidophilus/ Rhamnosus (Culturelle) 1 cap BID PO Last administered on 08/23/16 08:09; Admin Dose 1 CAP; Start 08/20/16 at 09:00 Metoprolol Tartrate (Lopressor) 25 mg BID PO Last administered on 08/23/16 08: 09; Admin Dose 25 MG; Start 08/20/16 at 09:00 Montelukast Sodium (Singulair) 10 mg HS PO Last administered on 08/22/16 21:18 ; Admin Dose 10 MG; Start 08/20/16 at 21:00 Pantoprazole (Protonix Tab) 40 mg DAILY@06 PO Last administered on 08/23/16 05: 33; Admin Dose 40 MG; Start 08/20/16 at 06:00 Sertraline HCl (Zoloft) 100 mg DAILY PO Last administered on 08/23/16 08:09; Admin Dose 100 MG; Start 08/20/16 at 09:00 Multivitamins Therapeutic (Theragran) 1 tab DAILY PO Last administered on 08:09; Admin Dose 1 TAB; Start 08/20/16 at 09:00 Insulin Glargine (Lantus) 10 unit DAILY@20 SC Last administered on 08/22/16 21: 17; Admin Dose 10 UNIT; Start 08/20/16 at 20:00 Diagnostic Test (Pha) (Accucheck) 1 ea 02 XX Last administered on 08/21/16 02: 37; Admin Dose 1 EA; Start 08/21/16 at 02:00 Furosemide (Lasix) 60 mg DAILY@06 PO Last administered on 08/23/16 05:34; Admin Dose 60 MG; Start 08/20/16 at 06:00 Miscellaneous Information 1 ea NOTE XX ; Start 08/20/16 at 06:00 Glucose (Glutose) 15 gm Q15M PRN PO DECREASED GLUCOSE; Start 08/20/16 at 06:00 Glucose (Glutose) 22.5 gm Q15M PRN PO DECREASED GLUCOSE; Start 08/20/16 at 06:00 Dextrose (D50w Syringe) 25 ml Q15M PRN IV DECREASED GLUCOSE; Start 08/20/16 at 06:00 Dextrose (D50w Syringe) 50 ml Q15M PRN IV DECREASED GLUCOSE; Start 08/20/16 at 06:00 Glucagon (Glucagen) 1 mg Q15M PRN IM DECREASED GLUCOSE; Start 08/20/16 at 06:00 Glucose (Glutose) 15 gm Q15M PRN BUCCAL DECREASED GLUCOSE; Start 08/20/16 at 06: 00 Gabapentin (Neurontin) 300 mg TID PO Last administered on 08/23/16 12:10; Admin Dose 300 MG; Start 08/20/16 at 09:00 Warfarin Sodium (Coumadin) 8 mg DAILY@17 PO Last administered on 08/23/16 17:53 ; Admin Dose 8 MG; Start 08/23/16 at 17:00 ESTEFANI BORREGO Aug 23, 2016 18:48
[2016-08-23] MEDS: INSULIN GLARGINE [LANtus] 3 ML PEN SC SCH (21:19)
[2016-08-23] MEDS: ATORVASTATIN 20 MG TAB PO SCH (21:28)
[2016-08-23] MEDS: MONTELUKAST 10 MG TAB PO SCH (21:28)
[2016-08-24] VITALS (12 sets, daily range): BP systolic 92–111; BP diastolic 54–62; PULSE 54–68; RESP 16–20
[2016-08-24] MEDS: ALBUTEROL HFA 8 GM INHALER INH SCH ×5 (01:00→21:00)
[2016-08-24] MEDS: ACCUCHECK XX SCH (02:00)
[2016-08-24] MEDS: FUROSEMIDE 20 MG TAB PO SCH (05:51)
[2016-08-24] MEDS: PANTOPRAZOLE (EC) 40 MG TAB PO SCH (05:51)
[2016-08-24 07:02] LABS: INR 1.84; PROTIME 21.4 Sec (12.2-14.2); PT RATIO 1.7
[2016-08-24] MEDS: INSULIN ASPART [NOVOLOG] 3 ML PEN SC SCH ×4 (08:00→21:00)
[2016-08-24] MEDS: ASPIRIN 81 MG TAB PO SCH (08:12)
[2016-08-24] MEDS: MULTIVITAMINS THERAPEUTIC TAB PO SCH (08:12)
[2016-08-24] MEDS: SERTRALINE 100 MG TAB PO SCH (08:12)
[2016-08-24] MEDS: GABAPENTIN 300 MG CAP PO SCH ×3 (08:12→21:11)
[2016-08-24] MEDS: LACTOBACILLUS RHAMNOSUS CAP PO SCH ×2 (08:12→21:11)
[2016-08-24] MEDS: DOCUSATE SODIUM 100 MG CAP PO SCH (08:12)
[2016-08-24] MEDS: METOPROLOL 25 MG TAB PO SCH ×2 (08:13→21:00)
[2016-08-24] MEDS: DIGOXIN 0.125 MG TAB PO SCH (13:35)
--- NOTE | 2016-08-24 14:04 | PN ---
Date/Time of Note Date/Time of Note DATE: 08/24/16 TIME: 13:57 Assessment/Plan VTE Prophylaxis VTE Prophylaxis Intervention: other (coumadin) Lines/Catheters IV Catheter Type (from Nrsg): Saline Lock Assessment/Plan Assessment/Plan 1. s/p mechanical MVR and AVR increase Coumadin to 10 mg today, awaiting for INR goes up to 2.5-3.5 2. Recent cardiac arrest (2 weeks ago). Continue optimization with his cardiovascular medications. 3. Acute on chronic decompensated diastolic CHF. Continue on diuretics 4. CAD. Continue on antiplatelet therapy. 5. Hemoptysis. likely coumadin related, resolved 6. COPD. stable 7. A. fib. on metoprolol, digoxin and Coumadin 8. Type 2 diabetes. Previous A1c noted at around 11. Continue on insulin regimen 9. Normocytic anemia, stable Subjective 24 Hr Interval Summary Free Text/Dictation NO HEMOPTYSIS OR BLEEDING Exam/Review of Systems Vital Signs Vitals Vital Signs Date Time Temp Pulse Resp B/P Pulse Ox O2 Delivery O2 Flow Rate FiO2 08/24/16 12:55 59 08/24/16 11:55 97.9 20 111/62 95 08/23/16 02:25 Room Air Intake and Output 08/23/16 08/23/16 08/24/16 14:59 22:59 06:59 Intake Total 720 ml 670 ml Output Total 900 ml 650 ml Balance -180 ml 20 ml Exam Constitutional: alert, oriented, well developed Psych: nl mood/affect, no complaints Head: atraumatic, normocephalic Eyes: EOMI, nl conjunctiva, nl lids ENMT: nl external ears & nose, nl lips & teeth, nl nasal mucosa & septum Neck: non-tender, supple Respiratory: clear to auscultation, normal air movement, No congested cough, No crackles/rales, No diminished breath sounds, No intercostal retraction, No labored breathing, No other, No respirations, No tactile fremitus, No wheezing Cardiovascular: nl pulses, regular rate and rhythm, No S3, No S4, No bruits, No diastolic murmur, No edema, No gallop, No irregular rhythm, No jugular venous distention (JVD), No murmurs/extra sounds, No other, No rub, No systolic murmur Gastrointestinal: nl liver, spleen, non-tender, soft, No ascites, No bowel sounds, No distended, No firm, No hepatomegaly, No mass , No other, No rebound or guarding, No splenomegaly, No surgical scars, No tender Musculoskeletal: nl extremities to inspection Extremities: normal pulses, No calf tenderness, No clubbing, No cyanosis, No edema, No other, No palpable cord, No pitting pedal edema, No tenderness 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: MANAGER ACCOUNT MANAGEMENT II-XII intact, nl mental status, nl speech, nl strength Skin: nl turgor Lymph: nl lymph nodes Results Result Diagram: 08/22/1655408/22/16554 Results 24 hrs Laboratory Tests Test 08/23/16 17:07 08/23/16 21:16 08/24/16 05:59 08/24/16 07:49 Bedside Glucose 137 132 107 INR International Normalized Ratio 1.84 Prothrombin Time 21.4 H Prothrombin Time Ratio 1.7 Test 08/24/16 11:40 Bedside Glucose 139 Medications Medications Current Medications Acetaminophen (Tylenol Tab) 650 mg Q6H PRN PO pain Last administered on 05:39; Admin Dose 650 MG; Start 08/20/16 at 05:00 Ondansetron HCl (Zofran Inj) 4 mg Q6H PRN IV nausea/vomiting; Start 08/20/16 at 05:00 Aspirin (Aspirin) 81 mg DAILY PO Last administered on 08/24/16 08:12; Admin Dose 81 MG; Start 08/20/16 at 09:00 Atorvastatin Calcium (Lipitor) 20 mg HS PO Last administered on 08/23/16 21:28 ; Admin Dose 20 MG; Start 08/20/16 at 21:00 Digoxin (Digoxin) 0.125 mg DAILY@13 PO Last administered on 08/24/16 13:35; Admin Dose 0.125 MG; Start 08/20/16 at 13:00 Docusate Sodium (Colace) 100 mg DAILY PO Last administered on 08/24/16 08:12; Admin Dose 100 MG; Start 08/20/16 at 09:00 Lactobacillus Acidophilus/ Rhamnosus (Culturelle) 1 cap BID PO Last administered on 08/24/16 08:12; Admin Dose 1 CAP; Start 08/20/16 at 09:00 Montelukast Sodium (Singulair) 10 mg HS PO Last administered on 08/23/16 21:28 ; Admin Dose 10 MG; Start 08/20/16 at 21:00 Pantoprazole (Protonix Tab) 40 mg DAILY@06 PO Last administered on 08/24/16 05: 51; Admin Dose 40 MG; Start 08/20/16 at 06:00 Sertraline HCl (Zoloft) 100 mg DAILY PO Last administered on 08/24/16 08:12; Admin Dose 100 MG; Start 08/20/16 at 09:00 Multivitamins Therapeutic (Theragran) 1 tab DAILY PO Last administered on 08:12; Admin Dose 1 TAB; Start 08/20/16 at 09:00 Insulin Glargine (Lantus) 10 unit DAILY@20 SC Last administered on 08/23/16 21: 19; Admin Dose 10 UNIT; Start 08/20/16 at 20:00 Diagnostic Test (Pha) (Accucheck) 1 ea 02 XX Last administered on 08/21/16 02: 37; Admin Dose 1 EA; Start 08/21/16 at 02:00 Furosemide (Lasix) 60 mg DAILY@06 PO Last administered on 08/24/16 05:51; Admin Dose 60 MG; Start 08/20/16 at 06:00 Miscellaneous Information 1 ea NOTE XX ; Start 08/20/16 at 06:00 Glucose (Glutose) 15 gm Q15M PRN PO DECREASED GLUCOSE; Start 08/20/16 at 06:00 Glucose (Glutose) 22.5 gm Q15M PRN PO DECREASED GLUCOSE; Start 08/20/16 at 06:00 Dextrose (D50w Syringe) 25 ml Q15M PRN IV DECREASED GLUCOSE; Start 08/20/16 at 06:00 Dextrose (D50w Syringe) 50 ml Q15M PRN IV DECREASED GLUCOSE; Start 08/20/16 at 06:00 Glucagon (Glucagen) 1 mg Q15M PRN IM DECREASED GLUCOSE; Start 08/20/16 at 06:00 Glucose (Glutose) 15 gm Q15M PRN BUCCAL DECREASED GLUCOSE; Start 08/20/16 at 06: 00 Gabapentin (Neurontin) 300 mg TID PO Last administered on 08/24/16 13:35; Admin Dose 300 MG; Start 08/20/16 at 09:00 Warfarin Sodium (Coumadin) 8 mg DAILY@17 PO Last administered on 08/23/16 17:53 ; Admin Dose 8 MG; Start 08/23/16 at 17:00 Metoprolol Tartrate (Lopressor) 12.5 mg BID PO Last administered on 08/23/16 21 :26; Admin Dose 12.5 MG; Start 08/23/16 at 21:00 ERICA GONZALEZ MD Aug 24, 2016 14:04
--- NOTE | 2016-08-24 15:04 | CONS ---
Date/Time of Note Date/Time of Note DATE: 08/24/16 TIME: 15:02 Assessment/Plan Assessment/Plan Chief Complaint/Hosp Course ASSESSMENT: A 75-year-old gentleman with: 1. Hemoptysis. 2. Coronary artery disease s/p C 08/05 with no sig obstructive disease 3. Congestive heart failure-diastolic acute on chronic 4. Atrial fibrillation-rate controlled 5. Bioprosthetic mitral valve replacement and AVR by echo 08/05 6. Chronic obstructive pulmonary disease. 7. Asthma. 8. Depression. 10. Hypertension. 11. Dyslipidemia. Recc: -Tele -serial ecg's -Continue asa/statin -Continue digoxin/BB -Continue coumadin loading and follow INR goal 2-3 closely and follow for recurrent hemoptysis Problems: Consultation Date/Type/Reason Admit Date/Time Aug 20, 2016 at 02:43 Initial Consult Date 08/21/2016 Type of Consultation: Cardiology Reason for Consultation AVR/MVR Referring Provider: LEANDRO RODRIGUEZ MD Exam/Review of Systems Vital Signs Vitals Vital Signs Date Time Temp Pulse Resp B/P Pulse Ox O2 Delivery O2 Flow Rate FiO2 08/24/16 12:55 59 08/24/16 11:55 97.9 20 111/62 95 08/23/16 02:25 Room Air Intake and Output 08/23/16 08/23/16 08/24/16 15:00 23:00 07:00 Intake Total 720 ml 670 ml Output Total 900 ml 650 ml Balance -180 ml 20 ml Exam Review of Systems: CONSTITUTIONAL: No fevers, chills. PULMONARY: No sob CARDIOVASCULAR: No chest pain/palpitations GASTROINTESTINAL: No nausea/vomiting. GENITOURINARY: No hematuria/dysuria. MUSCULOSKELETAL: No myagias/arthalgias. PSYCHIATRIC: The patient denies depression. NEUROLOGIC: No weakness Constitutional: alert Psych: no complaints Head: normocephalic ENMT: mucosa pink and moist Neck: jvd (9 cm water), supple Respiratory: clear to auscultation Cardiovascular: regular rate and rhythm Gastrointestinal: non-tender, soft Musculoskeletal: muscle tone (normal) Extremities: edema (none) 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: other (NO focal deficits) Results Result Diagram: 08/22/16 0555 08/22/16 0555 Results 24 hrs Laboratory Tests Test 08/23/16 17:07 08/23/16 21:16 08/24/16 05:59 08/24/16 07:49 Bedside Glucose 137 132 107 INR International Normalized Ratio 1.84 Prothrombin Time 21.4 H Prothrombin Time Ratio 1.7 Test 08/24/16 11:40 Bedside Glucose 139 Medications Medications Current Medications Acetaminophen (Tylenol Tab) 650 mg Q6H PRN PO pain Last administered on 05:39; Admin Dose 650 MG; Start 08/20/16 at 05:00 Ondansetron HCl (Zofran Inj) 4 mg Q6H PRN IV nausea/vomiting; Start 08/20/16 at 05:00 Aspirin (Aspirin) 81 mg DAILY PO Last administered on 08/24/16 08:12; Admin Dose 81 MG; Start 08/20/16 at 09:00 Atorvastatin Calcium (Lipitor) 20 mg HS PO Last administered on 08/23/16 21:28 ; Admin Dose 20 MG; Start 08/20/16 at 21:00 Digoxin (Digoxin) 0.125 mg DAILY@13 PO Last administered on 08/24/16 13:35; Admin Dose 0.125 MG; Start 08/20/16 at 13:00 Docusate Sodium (Colace) 100 mg DAILY PO Last administered on 08/24/16 08:12; Admin Dose 100 MG; Start 08/20/16 at 09:00 Lactobacillus Acidophilus/ Rhamnosus (Culturelle) 1 cap BID PO Last administered on 08/24/16 08:12; Admin Dose 1 CAP; Start 08/20/16 at 09:00 Montelukast Sodium (Singulair) 10 mg HS PO Last administered on 08/23/16 21:28 ; Admin Dose 10 MG; Start 08/20/16 at 21:00 Pantoprazole (Protonix Tab) 40 mg DAILY@06 PO Last administered on 08/24/16 05: 51; Admin Dose 40 MG; Start 08/20/16 at 06:00 Sertraline HCl (Zoloft) 100 mg DAILY PO Last administered on 08/24/16 08:12; Admin Dose 100 MG; Start 08/20/16 at 09:00 Multivitamins Therapeutic (Theragran) 1 tab DAILY PO Last administered on 08:12; Admin Dose 1 TAB; Start 08/20/16 at 09:00 Insulin Glargine (Lantus) 10 unit DAILY@20 SC Last administered on 08/23/16 21: 19; Admin Dose 10 UNIT; Start 08/20/16 at 20:00 Diagnostic Test (Pha) (Accucheck) 1 ea 02 XX Last administered on 08/21/16 02: 37; Admin Dose 1 EA; Start 08/21/16 at 02:00 Furosemide (Lasix) 60 mg DAILY@06 PO Last administered on 08/24/16 05:51; Admin Dose 60 MG; Start 08/20/16 at 06:00 Miscellaneous Information 1 ea NOTE XX ; Start 08/20/16 at 06:00 Glucose (Glutose) 15 gm Q15M PRN PO DECREASED GLUCOSE; Start 08/20/16 at 06:00 Glucose (Glutose) 22.5 gm Q15M PRN PO DECREASED GLUCOSE; Start 08/20/16 at 06:00 Dextrose (D50w Syringe) 25 ml Q15M PRN IV DECREASED GLUCOSE; Start 08/20/16 at 06:00 Dextrose (D50w Syringe) 50 ml Q15M PRN IV DECREASED GLUCOSE; Start 08/20/16 at 06:00 Glucagon (Glucagen) 1 mg Q15M PRN IM DECREASED GLUCOSE; Start 08/20/16 at 06:00 Glucose (Glutose) 15 gm Q15M PRN BUCCAL DECREASED GLUCOSE; Start 08/20/16 at 06: 00 Gabapentin (Neurontin) 300 mg TID PO Last administered on 08/24/16 13:35; Admin Dose 300 MG; Start 08/20/16 at 09:00 Metoprolol Tartrate (Lopressor) 12.5 mg BID PO Last administered on 08/23/16 21 :26; Admin Dose 12.5 MG; Start 08/23/16 at 21:00 Warfarin Sodium (Coumadin) 10 mg ONCE ONCE PO ; Start 08/24/16 at 17:00; Stop at 17:01 ESTEFANI BORREGO Aug 24, 2016 15:04
[2016-08-24] MEDS ORDERED: WARFARIN 10 MG TAB PO ONE (17:00)
[2016-08-24] MEDS: INSULIN GLARGINE [LANtus] 3 ML PEN SC SCH (20:00)
[2016-08-24] MEDS: MONTELUKAST 10 MG TAB PO SCH (21:11)
[2016-08-24] MEDS: ATORVASTATIN 20 MG TAB PO SCH (21:11)
[2016-08-25] VITALS (8 sets, daily range): BP systolic 86–109; BP diastolic 53–64; PULSE 59–70; RESP 18–20
[2016-08-25] MEDS: ALBUTEROL HFA 8 GM INHALER INH SCH ×4 (01:00→13:00)
[2016-08-25] MEDS: ACCUCHECK XX SCH (02:00)
[2016-08-25] MEDS: PANTOPRAZOLE (EC) 40 MG TAB PO SCH (06:16)
[2016-08-25 06:56] LABS: PROTIME 22.9 Sec (12.2-14.2); PT RATIO 1.8
[2016-08-25] MEDS: INSULIN ASPART [NOVOLOG] 3 ML PEN SC SCH ×2 (08:00→13:06)
[2016-08-25] MEDS: DOCUSATE SODIUM 100 MG CAP PO SCH (10:06)
[2016-08-25] MEDS: ASPIRIN 81 MG TAB PO SCH (10:06)
[2016-08-25] MEDS: LACTOBACILLUS RHAMNOSUS CAP PO SCH (10:06)
[2016-08-25] MEDS: SERTRALINE 100 MG TAB PO SCH (10:07)
[2016-08-25] MEDS: GABAPENTIN 300 MG CAP PO SCH ×2 (10:07→14:21)
[2016-08-25] MEDS: MULTIVITAMINS THERAPEUTIC TAB PO SCH (10:08)
[2016-08-25] MEDS: ACETAMINOPHEN 325 MG TAB PO PRN (10:14)
[2016-08-25] MEDS: METOPROLOL 25 MG TAB PO SCH (10:15)
[2016-08-25] MEDS ORDERED: LANT3I SC (13:41)
[2016-08-25] MEDS ORDERED: FURO40TA4 PO (13:41)
[2016-08-25] MEDS ORDERED: NOVO3I SC (13:41)
--- NOTE | 2016-08-25 13:45 | DS ---
Date/Time of Note Date/Time of Note DATE: 08/25/16 TIME: 13:37 Discharge Summary Admission/Discharge Info Admit Date/Time Aug 20, 2016 at 02:43 Discharge Date/Time Final Diagnosis 1. s/p Bioprosthetic MVR and AVR adjust coumadin to keep INR 2-3 2. Recent cardiac arrest. Continue optimization with his cardiovascular medications. 3. Acute on chronic decompensated diastolic CHF. Continue on diuretics 4. CAD. Continue on antiplatelet therapy. 5. Hemoptysis. likely coumadin related, resolved 6. COPD. stable 7. A. fib. on metoprolol, digoxin and Coumadin 8. Type 2 diabetes. insulins, follow up with PCP 9. Normocytic anemia, stable Patient Condition: Stable Hx of Present Illness The patient is a 75-year-old male, with CAD, depression, hypertension, dyslipidemia, COPD, asthma, atrial fibrillation, CHF, Mitral valve and aortic valve replacement presenting to the ER complaining of hemoptysis x 1 day. He said he has had about 6 episodes, described small amount of dark red blood. He also complained of bleeding from left nostril that stopped spontaneously. He was admittedt last month after he presented with Productive cough and wheezing and was intubated, and was discharged on August 05, 2016. At that time, he had an abnormal troponin, but cardiac catheterization did not show any significant disease At the time of discharge, plan was to send him to Rehab/SNF , but he refused. He denies any headache, nasal congestion, sore throat, neck pain, chest pain, dyspnea, abdominal pain, vomiting, diarrhea, constipation. In ER, vitals were stable. hgb 8.9 from 10 two weeks ago. Cr 1.51 from 0.9, two weeks ago. CXR showed Cardiomegaly with pulmonary vascular congestion and bibasilar atelectasis. Hospital Course The hemoptysis is considered coumadin related. Patient has no hemoptysis after admission. Last INR on 08/25/2016 is 2. Patient will continue on coumadin and follow up with PCP for INR to keep INR 2-3. Patient has diabetes with HbA1c 11. He is on lantus and insulin sliding scale. Patient has no shortness of breath or other indication of decompensation of CHF now. I will decrease his lasix to 20 mg po daily. Home Meds Active Scripts Azithromycin* (Azithromycin*) 250 Mg Tablet, 250 MG PO DAILY for 2 Days, TAB Prov:BOB PURDY MD 08/05/16 Lactobacillus Rhamnosus* (Culturelle*) 1 Each Cap.sprink, 1 CAP PO BID for 7 Days, CAP Prov:BOB PURDY MD 08/04/16 Montelukast Sodium* (Montelukast Sodium*) 10 Mg Tablet, 10 MG NGT HS for 10 Days , TAB Prov:BOB PURDY MD 08/04/16 Warfarin Sodium (Coumadin) 7.5 Mg Tablet, 7.5 MG NGT DAILY@17 for 10 Days, TAB Prov:BOB PURDY MD 08/04/16 Digoxin* (Digoxin*) 0.125 Mg Tab, 0.125 MG PO DAILY@13, #30 TAB Prov:SANJAY ADAMS [employer]ATION SERVICE SUPERVISOR 03/08/14 Docusate Sodium* (Colace*) 100 Mg Cap, 100 MG PO DAILY, #30 Prov:SANJAY ADAMS [employer] SERVICE SUPERVISOR 03/08/14 Reported Medications Furosemide (Lasix) 40 Mg Tab, 60 MG PO DAILY, TAB 08/20/16 Multivitamin (One Daily) 1 Each Tablet, 1 EACH PO DAILY, TAB 07/27/16 Gabapentin* (Gabapentin*) 100 Mg Capsule, 200 MG PO TID, #180 CAP 07/27/16 Sertraline Hcl* (Zoloft*) 100 Mg Tablet, 100 MG PO DAILY, #30 TAB 07/27/16 Metoprolol Tartrate* (Lopressor*) 25 Mg Tablet, 25 MG PO BID, #60 TAB 07/27/16 Albuterol Sulfate* (Proair HFA*) 8.5 Gm Hfa.aer.ad, 2 PUFF INH Q4, INH 03/05/14 Pantoprazole (Protonix) 40 Mg Tabec, 40 MG PO DAILY, TAB 03/05/14 Albuterol/Ipratropium* (Combivent Respimat*) 20-100 Mcg/Inh - 4 Gm Aer.w.adap, 1 PUFF IH QID Y for WHEEZING AND SOB, INH 03/05/14 Atorvastatin Calcium* (Atorvastatin Calcium*) 20 Mg Tablet, 20 MG PO HS, TAB 03/05/14 Aspirin (Aspirin) 81 Mg Chew, 81 MG PO DAILY, TAB.CHEW 03/05/14 Discontinued Scripts Azithromycin* (Azithromycin*) 250 Mg Tablet, 500 MG PO DAILY for 3 Days, TAB Prov:BOB PURDY MD 08/04/16 Enoxaparin Sodium (Enoxaparin Sodium) 100 Mg/1 Ml Syringe, 85 MG SC Q24H for 7 Days, #14 Prov:BOB PURDY MD 08/04/16 Follow-up Plan PCP in one week cardiology in one week Pending Labs Laboratory Tests Test 08/24/16 17:01 08/24/16 21:05 08/25/16 06:11 08/25/16 06:31 Bedside Glucose 181mg/dL (70-220) 83mg/dL (70-220) 155mg/dL (70-220) B-Type Natriuretic Peptide 1010PG/ML (0-450) INR International Normalized Ratio 2.00 Prothrombin Time 22.9Sec (12.2-14.2) Prothrombin Time Ratio 1.8 Test 08/25/16 08:12 08/25/16 12:00 Bedside Glucose 134mg/dL (70-220) 161mg/dL (70-220) ERICA GONZALEZ MD Aug 25, 2016 13:45
--- NOTE | 2016-08-25 14:07 | CONS ---
Date/Time of Note Date/Time of Note DATE: 08/25/16 TIME: 14:05 Assessment/Plan Assessment/Plan Chief Complaint/Hosp Course ASSESSMENT: A 75-year-old gentleman with: 1. Hemoptysis. 2. Coronary artery disease s/p C 08/05 with no sig obstructive disease 3. Congestive heart failure-diastolic acute on chronic 4. Atrial fibrillation-rate controlled 5. Bioprosthetic mitral valve replacement and AVR by echo 08/05-INR 2.0 today 6. Chronic obstructive pulmonary disease. 7. Asthma. 8. Depression. 10. Hypertension. 11. Dyslipidemia. Recc: -Tele -serial ecg's -Continue asa/statin -Continue digoxin/BB -Continue coumadin/INR now therapeutic -D/C planning with outpatient f/u 2-3 weeks Problems: Consultation Date/Type/Reason Admit Date/Time Aug 20, 2016 at 02:43 Initial Consult Date 08/21/2016 Type of Consultation: Cardiology Reason for Consultation AVR/MVR Referring Provider: LEANDRO RODRIGUEZ MD Exam/Review of Systems Vital Signs Vitals Vital Signs Date Time Temp Pulse Resp B/P Pulse Ox O2 Delivery O2 Flow Rate FiO2 08/25/16 12:27 59 08/25/16 11:27 97.9 20 109/64 92 08/24/16 20:00 Nasal Cannula Intake and Output 08/24/16 08/24/16 08/25/16 15:00 23:00 07:00 Intake Total 1200 ml 400 ml Balance 1200 ml 400 ml Exam Review of Systems: CONSTITUTIONAL: No fevers, chills. PULMONARY: No sob CARDIOVASCULAR: No chest pain/palpitations GASTROINTESTINAL: No nausea/vomiting. GENITOURINARY: No hematuria/dysuria. MUSCULOSKELETAL: No myagias/arthalgias. PSYCHIATRIC: The patient denies depression. NEUROLOGIC: No weakness Constitutional: alert, oriented Psych: no complaints Head: normocephalic ENMT: mucosa pink and moist Neck: jvd (8 cm water), supple Respiratory: clear to auscultation Cardiovascular: irregular rhythm Gastrointestinal: non-tender, soft Musculoskeletal: muscle tone (normal) Extremities: edema (none) 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: other (No focal deficits) Results Result Diagram: 08/22/16 0555 08/22/16 0555 Results 24 hrs Laboratory Tests Test 08/24/16 17:01 08/24/16 21:05 08/25/16 06:11 08/25/16 06:31 Bedside Glucose 181 83 155 B-Type Natriuretic Peptide 1010 H INR International Normalized Ratio 2.00 Prothrombin Time 22.9 H Prothrombin Time Ratio 1.8 Test 08/25/16 08:12 08/25/16 12:00 Bedside Glucose 134 161 Medications Medications Current Medications Acetaminophen (Tylenol Tab) 650 mg Q6H PRN PO pain Last administered on 10:14; Admin Dose 650 MG; Start 08/20/16 at 05:00 Ondansetron HCl (Zofran Inj) 4 mg Q6H PRN IV nausea/vomiting; Start 08/20/16 at 05:00 Aspirin (Aspirin) 81 mg DAILY PO Last administered on 08/25/16 10:06; Admin Dose 81 MG; Start 08/20/16 at 09:00 Atorvastatin Calcium (Lipitor) 20 mg HS PO Last administered on 08/24/16 21:11 ; Admin Dose 20 MG; Start 08/20/16 at 21:00 Digoxin (Digoxin) 0.125 mg DAILY@13 PO Last administered on 08/24/16 13:35; Admin Dose 0.125 MG; Start 08/20/16 at 13:00 Docusate Sodium (Colace) 100 mg DAILY PO Last administered on 08/25/16 10:06; Admin Dose 100 MG; Start 08/20/16 at 09:00 Lactobacillus Acidophilus/ Rhamnosus (Culturelle) 1 cap BID PO Last administered on 08/25/16 10:06; Admin Dose 1 CAP; Start 08/20/16 at 09:00 Montelukast Sodium (Singulair) 10 mg HS PO Last administered on 08/24/16 21:11 ; Admin Dose 10 MG; Start 08/20/16 at 21:00 Pantoprazole (Protonix Tab) 40 mg DAILY@06 PO Last administered on 08/25/16 06: 16; Admin Dose 40 MG; Start 08/20/16 at 06:00 Sertraline HCl (Zoloft) 100 mg DAILY PO Last administered on 08/25/16 10:07; Admin Dose 100 MG; Start 08/20/16 at 09:00 Multivitamins Therapeutic (Theragran) 1 tab DAILY PO Last administered on 10:08; Admin Dose 1 TAB; Start 08/20/16 at 09:00 Insulin Glargine (Lantus) 10 unit DAILY@20 SC Last administered on 08/23/16 21: 19; Admin Dose 10 UNIT; Start 08/20/16 at 20:00 Diagnostic Test (Pha) (Accucheck) 1 ea 02 XX Last administered on 08/21/16 02: 37; Admin Dose 1 EA; Start 08/21/16 at 02:00 Furosemide (Lasix) 60 mg DAILY@06 PO Last administered on 08/24/16 05:51; Admin Dose 60 MG; Start 08/20/16 at 06:00; Status Future Hold Miscellaneous Information 1 ea NOTE XX ; Start 08/20/16 at 06:00 Glucose (Glutose) 15 gm Q15M PRN PO DECREASED GLUCOSE; Start 08/20/16 at 06:00 Glucose (Glutose) 22.5 gm Q15M PRN PO DECREASED GLUCOSE; Start 08/20/16 at 06:00 Dextrose (D50w Syringe) 25 ml Q15M PRN IV DECREASED GLUCOSE; Start 08/20/16 at 06:00 Dextrose (D50w Syringe) 50 ml Q15M PRN IV DECREASED GLUCOSE; Start 08/20/16 at 06:00 Glucagon (Glucagen) 1 mg Q15M PRN IM DECREASED GLUCOSE; Start 08/20/16 at 06:00 Glucose (Glutose) 15 gm Q15M PRN BUCCAL DECREASED GLUCOSE; Start 08/20/16 at 06: 00 Gabapentin (Neurontin) 300 mg TID PO Last administered on 08/25/16 10:07; Admin Dose 300 MG; Start 08/20/16 at 09:00 Metoprolol Tartrate (Lopressor) 12.5 mg BID PO Last administered on 08/25/16 10 :15; Admin Dose 12.5 MG; Start 08/23/16 at 21:00 ESTEFANI BORREGO Aug 25, 2016 14:07
[2016-08-25] MEDS: DIGOXIN 0.125 MG TAB PO SCH (14:22)
== END 2016-08-25 20:13 | disposition home or self-care (01) | DRG 204 ==
LOC: E/R 22:50 → MS4 08-20 02:43
PROVIDERS: ADMIT Internal Medicine; ATTEND Internal Medicine
DX: R04.2 Hemoptysis (principal); I50.33 Acute on chronic diastolic (congestive) heart failure; D68.32 Hemorrhagic disorder due to extrinsic circulating anticoagulants; I48.2 Chronic atrial fibrillation; D64.9 Anemia, unspecified; E11.9 Type 2 diabetes mellitus without complications; F32.9 Major depressive disorder, single episode, unspecified; J98.11 Atelectasis; J44.9 Chronic obstructive pulmonary disease, unspecified; Z87.891 Personal history of nicotine dependence; Z95.2 Presence of prosthetic heart valve; Z79.01 Long term (current) use of anticoagulants; I25.10 Atherosclerotic heart disease of native coronary artery without angina pectoris; R04.0 Epistaxis
CPT/HCPCS: 36415; 71010; 71250; 80048; 80053; 80162; 82962; 83735; 83880; 84100; 84484; 85025; 85610; 85730; 86850; 86900; 86901; 93005; J1815

== ENCOUNTER 2016-08-30 21:26 | Inpatient (IN) | payer MEDICARE, OTHER ==
[~2016-08-30] VITALS: Ht 167.6 cm; Wt 71.4 kg
[~2016-08-30 21:26] MED LIST changes: -ENOX100D2 SC; +FURO40TA4 PO; +LANT3I SC; +NOVO3I SC
[2016-08-30] MEDS ORDERED: ONDANSETRON 4 MG INJ IV STA (23:54)
[2016-08-30] MEDS ORDERED: morphine 4 MG/ML VIAL IV STA (23:54)
[2016-08-31] VITALS (11 sets, daily range): BP systolic 106–131; BP diastolic 59–70; PULSE 78–87; RESP 18–22; TEMP 98.9; Ht 167.6 cm; Wt 71.4 kg
--- NOTE | 2016-08-31 00:55 | RADRPT ---
PROCEDURE: XR Chest. CLINICAL INDICATION: Chest pain. TECHNIQUE: Portable AP view of the chest was obtained. COMPARISON: 08/19/2016. CT 08/20/2016 FINDINGS: The cardiomediastinal silhouette is enlarged. Compressive atelectasis of the lung bases slightly gr eater on the right is unchanged. Mild chronic pulmonary vascular congestion is again noted with phong ateral costophrenic angle blunting likely related to small bilateral pleural effusions. Sternotomy wires are again noted without evidence of new osseous abnormality. RPTAT:HJJR IMPRESSION: Chronic congestive heart failure pattern in this patient who is status post thoracotomy has not perez ged since the prior studies of 08/20/2016 and 08/19/2016. Physician Jack Date Time Electronically viewed and signed by Homer Land Physician on 08/31/2016 00:55 /
[2016-08-31 01:10] LABS: ABNORMAL IP MESSAGE 1; ADD SCAN DIFF NO; BASOPHILS % 0.5 % (0.0-2.0); EOSINOPHILS # 0.1 10^3/ul (0.0-0.5); EOSINOPHILS % 2.1 % (0.0-7.0); HEMOGLOBIN 8.5 g/dl (14.0-18.0); LYMPHOCYTES # 0.5 10^3/ul (0.8-2.9); MEAN CORPUSCULAR HEMOGLOBIN 30.4 pg (29.0-33.0); MEAN CORPUSCULAR HGB CONC 31.5 g/dl (32.0-37.0); MEAN CORPUSCULAR VOLUME 96.4 fl (82.0-101.0); MEAN PLATELET VOLUME 10.2 fl (7.4-10.4); MONOCYTE # 0.7 10^3/ul (0.3-0.9); MONOCYTES % 11.4 % (0.0-11.0); NEUTROPHIL # 4.3 10^3/ul (1.6-7.5); PLATELET COUNT 140 10^3/UL (140-415); RED CELL DISTRIBUTION WIDTH 14.5 % (11.5-14.5); WHITE BLOOD COUNT 5.7 10^3/ul (4.8-10.8)
[2016-08-31 01:18] LABS: LYMPHOCYTES % 9.5 % (15.0-51.0)
[2016-08-31 01:23] LABS: INR 1.77; PROTIME 20.8 Sec (12.2-14.2); PT RATIO 1.6
[2016-08-31 01:24] LABS: PARTIAL THROMBOPLASTIN TIME 37.1 Sec (25.0-35.0)
[2016-08-31 01:43] LABS: ALBUMIN 3.7 g/dl (3.3-4.9)
[2016-08-31 01:44] LABS: POTASSIUM 4.4 mmol/L (3.5-5.1)
[2016-08-31 01:46] LABS: ALBUMIN/GLOBULIN RATIO 1.12; BILIRUBIN,INDIRECT 0.1 mg/dl (0-1.1); BILIRUBIN,TOTAL 0.1 mg/dl (0.2-1.3); CREATININE 1.04 mg/dl (0.61-1.24)
[2016-08-31 01:47] LABS: CALCIUM 9.1 mg/dl (8.4-10.2)
[2016-08-31 01:59] LABS: TROPONIN-I 0.034 ng/ml (0.00-0.12)
--- NOTE | 2016-08-31 02:13 | ERA ---
ER Documentation Chief Complaint Date/Time DATE: 08/31/16 TIME: 02:12 Chief Complaint chest pain w/ sob today, hc-copd,chf HPI This is a 75-year-old male comes in with complaint of shortness of breath. Patient has a history of COPD and CHF. His chest pain started earlier today. Became "increasingly short of breath. No fevers no chills. No other current complaints. ROS All systems reviewed and are negative except as per history of present illness. Medications Home Meds Active Scripts Insulin Aspart* (Novolog Insulin Pen*) 100 Unit/Ml Soln, 0 UNIT SC WITH MEALS BEDTIME for 30 Days Prov:ERICA GONZALEZ MD 08/25/16 Insulin Glargine* (Lantus*) 100 Unit/Ml Soln, 10 UNIT SC DAILY@20 for 30 Days Prov:ERICA GONZALEZ MD 08/25/16 Furosemide (Lasix) 40 Mg Tab, 20 MG PO DAILY for 30 Days, TAB Prov:ERICA GONZALEZ MD 08/25/16 Azithromycin* (Azithromycin*) 250 Mg Tablet, 250 MG PO DAILY for 2 Days, TAB Prov:BOB PURDY MD 08/05/16 Lactobacillus Rhamnosus* (Culturelle*) 1 Each Cap.sprink, 1 CAP PO BID for 7 Days, CAP Prov:BOB PURDY MD 08/04/16 Montelukast Sodium* (Montelukast Sodium*) 10 Mg Tablet, 10 MG NGT HS for 10 Days , TAB Prov:BOB PURDY MD 08/04/16 Warfarin Sodium (Coumadin) 7.5 Mg Tablet, 7.5 MG NGT DAILY@17 for 10 Days, TAB Prov:BOB PURDY MD 08/04/16 Digoxin* (Digoxin*) 0.125 Mg Tab, 0.125 MG PO DAILY@13, #30 TAB Prov:SANJAY ADAMS NP 03/08/14 Docusate Sodium* (Colace*) 100 Mg Cap, 100 MG PO DAILY, #30 Prov:SANJAY ADAMS [employer] COMM[employer]ICATIONS SERGEANT 03/08/14 Reported Medications Multivitamin (One Daily) 1 Each Tablet, 1 EACH PO DAILY, TAB 07/27/16 Gabapentin* (Gabapentin*) 100 Mg Capsule, 200 MG PO TID, #180 CAP 07/27/16 Sertraline Hcl* (Zoloft*) 100 Mg Tablet, 100 MG PO DAILY, #30 TAB 07/27/16 Metoprolol Tartrate* (Lopressor*) 25 Mg Tablet, 25 MG PO BID, #60 TAB 07/27/16 Albuterol Sulfate* (Proair HFA*) 8.5 Gm Hfa.aer.ad, 2 PUFF INH Q4, INH 03/05/14 Pantoprazole (Protonix) 40 Mg Tabec, 40 MG PO DAILY, TAB 03/05/14 Albuterol/Ipratropium* (Combivent Respimat*) 20-100 Mcg/Inh - 4 Gm Aer.w.adap, 1 PUFF IH QID Y for WHEEZING AND SOB, INH 03/05/14 Atorvastatin Calcium* (Atorvastatin Calcium*) 20 Mg Tablet, 20 MG PO HS, TAB 03/05/14 Aspirin (Aspirin) 81 Mg Chew, 81 MG PO DAILY, TAB.CHEW 03/05/14 Discontinued Scripts Azithromycin* (Azithromycin*) 250 Mg Tablet, 500 MG PO DAILY for 3 Days, TAB Prov:BOB PURDY MD 08/04/16 Enoxaparin Sodium (Enoxaparin Sodium) 100 Mg/1 Ml Syringe, 85 MG SC Q24H for 7 Days, #14 Prov:BOB PURDY MD 08/04/16 Allergies Allergies: Coded Allergies: No Known Allergy (Unverified , 08/03/16) per daughters, Romana and Melissa, No Known Allergy. PMhx/Soc History of Surgery: Yes (open heart surgery 2013, gallbladder surgery 2014) Anesthesia Reaction: No Hx 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 Disorder: No Hx Respiratory Disorders: Yes (COPD, asthma) Hx Cardiac Disorders: Yes (A fib, CHF, MD 07/27/16) Hx Psychiatric Problems: No Hx Miscellaneous Medical Probl: Yes (DM) Hx Alcohol Use: No Hx Substance Use: No Hx Tobacco Use: No Smoking Status: Former smoker Physical Exam Vitals Vital Signs Date Time Temp Pulse Resp B/P Pulse Ox O2 Delivery O2 Flow Rate FiO2 08/30/16 23:45 98.9 79 20 119/71 97 Room Air 08/30/16 23:45 Nasal Cannula 3 08/30/16 21:40 98.9 79 20 117/65 97 Physical Exam Const: [] Head: Atraumatic Eyes: Normal Conjunctiva ENT: Normal External Ears, Nose and Mouth. Neck: Full range of motion..~ No meningismus. Resp: Clear to auscultation bilaterally Cardio: Regular rate and rhythm, no murmurs Abd: Soft, non tender, non distended. Normal bowel sounds Skin: No petechiae or rashes Back: No midline or flank tenderness Ext: No cyanosis, or edema Neur: Awake and alert Psych: Normal Mood and Affect Result Diagram: 08/30/16234908/30/162349 Results 24 hrs Laboratory Tests Test 08/30/16 23:50 Activated Partial Thromboplast Time 37.1Sec Alanine Aminotransferase (ALT/SGPT) 35IU/L Albumin 3.7g/dl Albumin/Globulin Ratio 1.12 Alkaline Phosphatase 107IU/L Anion Gap 17 Aspartate Amino Transf (AST/SGOT) 42IU/L B-Type Natriuretic Peptide 1190PG/ML Basophils # 0.010^3/ul Basophils % 0.5% Blood Urea Nitrogen 17mg/dl Calcium Level 9.1mg/dl Carbon Dioxide Level 27mmol/L Chloride Level 103mmol/L Creatinine 1.04mg/dl Direct Bilirubin 0.00mg/dl Eosinophils # 0.110^3/ul Eosinophils % 2.1% Globulin 3.30g/dl Glucose Level 101mg/dl Hematocrit 27.0% Hemoglobin 8.5g/dl INR International Normalized Ratio 1.77 Indirect Bilirubin 0.1mg/dl Lymphocytes # 0.510^3/ul Lymphocytes % 9.5% Mean Corpuscular Hemoglobin 30.4pg Mean Corpuscular Hemoglobin Concent 31.5g/dl Mean Corpuscular Volume 96.4fl Mean Platelet Volume 10.2fl Monocytes # 0.710^3/ul Monocytes % 11.4% Neutrophils # 4.310^3/ul Neutrophils % 76.0% Nucleated Red Blood Cells # 0.010^3/ul Nucleated Red Blood Cells % 0.0/100WBC Platelet Count 03875^3/UL Potassium Level 4.4mmol/L Prothrombin Time 20.8Sec Prothrombin Time Ratio 1.6 Red Blood Count 2.8010^6/ul Red Cell Distribution Width 14.5% Sodium Level 143mmol/L Total Bilirubin 0.1mg/dl Total Protein 7.0g/dl Troponin I 0.034ng/ml White Blood Count 5.710^3/ul Current Medications Medications (Trade) Dose Ordered Sig/Jhoana Route PRN Reason Start Time Stop Time Status Last Admin Dose Admin Morphine Sulfate (morphine) 4 mg ONCE STAT IV 08/30/16 23:54 08/30/16 23:55 DC 08/30/16 23:59 Ondansetron HCl (Zofran Inj) 4 mg ONCE STAT IV 08/30/16 23:54 08/30/16 23:55 DC 08/30/16 23:59 Procedures/MDM EKG: Rate/Rhythm: [Normal Sinus Rhythm] QRS, ST, T-waves: [No changes consistent w/ acute ischemia] Impression: [No evidence of ischemia or arrhythmia] Chest X-ray 1V Interpreted by me: Soft Tissue: No acute abnormalities Bones: No acute abnormalities Mediastinum/Cardiac Silhouette/Lungs: Increased interstitial fluid markings. Impression: CHF Patient's heart failure symptoms is concerning for acute decompensation and will require inpatient workup and monitoring. Further w/u for ischemia, arrhythmia, PE or dissection will be deferred to the inpatient team. Accepting Care Team: Current data and ongoing care discussed. Time: 2 AM Primary Provider: Hospitalist Consulting: [XOXOXO] Outstanding Data: none Departure Diagnosis: Primary Impression: Chest pain Qualified Code: I20.9 - Ischemic chest pain Additional Impression: CHF (congestive heart failure) Qualified Code: I50.9 - Congestive heart failure, unspecified congestive heart failure chronicity, unspecified congestive heart failure type Condition: Serious LANEY ABEBE Aug 31, 2016 02:13
[2016-08-31] MEDS ORDERED: NITROGLYCERIN (SL) 0.4 MG TAB SL PRN (03:30)
[2016-08-31] MEDS ORDERED: GLUCAGON 1 MG INJ IM PRN (03:30)
[2016-08-31] MEDS ORDERED: ACETAMINOPHEN 325 MG TAB PO PRN (03:30)
[2016-08-31] MEDS ORDERED: HYDROCODONE/APAP (5/325) TAB PO PRN (03:30)
[2016-08-31] MEDS ORDERED: hydrALAzine 20 MG INJ IV PRN (03:30)
[2016-08-31] MEDS ORDERED: MAGNESIUM HYDROXIDE 30ML CUP PO PRN (03:30)
[2016-08-31] MEDS ORDERED: LORAZEPAM 2 MG INJ IV PRN (03:30)
[2016-08-31] MEDS ORDERED: ALBUTEROL/IPRATROPIUM (NEB) 3 ML AMP HHN PRN (03:30)
[2016-08-31] MEDS ORDERED: ONDANSETRON 4 MG INJ IV PRN (03:30)
[2016-08-31] MEDS ORDERED: DEXTROSE 50% 50 ML SYRINGE IV PRN ×2 (03:30)
[2016-08-31] MEDS ORDERED: GLUCOSE GEL 15 GRAM TUBE BUCCAL PRN (03:30)
[2016-08-31] MEDS ORDERED: morphine 2 MG INJ IV PRN (03:30)
[2016-08-31] MEDS ORDERED: NACL 0.9% 3 ML SYG IV SCH (03:30)
[2016-08-31] MEDS ORDERED: NON-FORMULARY/PATIENT OWN MED (Albuterol/Ipratropium* (Combivent Respimat*) 1 PUFF) IH PRN (03:30)
[2016-08-31] MEDS ORDERED: DOCUSATE SODIUM 100 MG CAP PO PRN (03:30)
[2016-08-31] MEDS ORDERED: NA PHOSPHATE/BIPHOS 133 ML ENEMA PR PRN (03:30)
[2016-08-31] MEDS ORDERED: GLUCOSE GEL 15 GRAM TUBE PO PRN ×2 (03:30)
--- NOTE | 2016-08-31 05:23 | HP ---
DATE OF ADMISSION: 08/31/2016 A 75-year-old male. CHIEF COMPLAINT: Shortness of breath and mild chest pain. HISTORY OF PRESENT ILLNESS: A 75-year-old male with past medical history of COPD, using a nebulizer machine at home, diastolic CHF, recent cardiac arrest, coronary artery disease, prior hemoptysis, a trial fibrillation, type 2 diabetes, history of bioprosthetic mitral valve replacement, aortic valve replacement on Coumadin, who presents with shortness of breath symptoms for the last 3 days. He arroyo s also been having wheezing symptoms at home. Per family, he has been taking his nebulizer machine which has somewhat relieved his symptoms. No upper or lower GI bleeding, no fevers or chills. No n ausea, vomiting, no diarrhea, no constipation, no loss of consciousness, but the shortness of breath symptoms became worse and he had some mild chest pain earlier today as well, so family decided to b ring him in. The patient was last here at our hospital from 08/20/2016 of 08/25/2016. At that time , he was treated for recent cardiac arrest and also hemoptysis. PAST MEDICAL HISTORY: As stated above. ALLERGIES: NO KNOWN DRUG ALLERGIES. HOME MEDICATIONS: 1. Coumadin 7.5 mg daily. 2. ProAir HFA 2 puffs inhaled q.4 hours. 3. Combivent 1 puff inhaled q.i.d. p.r.n. 4. Azithromycin 250 mg daily. 5. Digoxin 0.125 mg daily. 6. Atorvastatin 20 mg at bedtime. 7. Metoprolol 25 mg b.i.d. 8. Aspirin 81 mg daily. 9. Gabapentin 200 mg t.i.d. 10. Zoloft 100 mg daily. 11. Lasix 20 mg p.o. daily. 12. Singulair 10 mg at bedtime. 13. Colace 100 mg daily. 14. Lactobacillus b.i.d. 15. Protonix 40 mg daily. 16. Lantus 10 units subQ daily. 17. Aspart insulin with meals. 18. Multivitamin daily. PAST SURGICAL HISTORY: Mitral valve and aortic valve replacement surgery in the past, cholecystecto my in the past. SOCIAL HISTORY: Occasional alcohol use. Former smoker. No IV drug abuse. FAMILY HISTORY: Noncontributory. PHYSICAL EXAMINATION: VITAL SIGNS: Today, T-max 98.9, pulse 79, respirations 20, blood pressure 117/65, saturating at 97% on 3 liters nasal cannula. GENERAL: The patient lying in bed, family member at the bedside. He is alert, in mild respiratory distress. HEENT: Pupils equal, round, and reactive to light. Extraocular muscles intact. NECK: Supple, no thyromegaly. LUNGS: Mild wheezing heard, right greater than left on expiration. mild crackles heard at the bases , otherwise clear. CARDIOVASCULAR: S1 and S2 heard. No rubs or gallops. ABDOMEN: Soft, nontender, nondistended. Normal bowel sounds with no rebound or guarding. MUSCULOSKELETAL: No lower extremity edema bilaterally. NEUROLOGIC: No focal deficits. LABORATORIES: CBC is completely normal. Basic metabolic panel is normal. LFTs are normal. BNP is 1190. INR is 1.77. Chest x-ray shows chronic congestive heart failure pattern in this patient who is status post thoracotomy, but has not changed since prior studies of 08/20/2016 and 08/19/2016. ASSESSMENT AND PLAN: A 75-year-old male with history of aortic and mitral valve replacement, chroni c obstructive pulmonary disease, diastolic heart failure, recent cardiac arrest who presents with sh ortness of breath for 3 days, signs of congestive heart failure and mild chronic obstructive pulmona ry disease exacerbation. 1. Shortness of breath. 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 Of note, his last echocardiogram was 07/27/2016 at that time showed ejection fraction of greater than 65%, but there was hyperdynamic left ventricular systolic function, normal left ventricular cavity size, severe enlargement of left atrium, mild enla rgement of the right atrium, bioprosthetic mitral valve, tricuspid valve normal. So the plan again w ill be to give the patient DuoNeb's q.4 hours around the clock. For congestive heart failure, will hold his beta jaquelin for now, put him on IV Lasix for now and monitor ins and outs, treat his conge stive heart failure exacerbation and monitor daily weights. Continue Singulair as well. 2. History of aortic and mitral valve replacement surgeries. Continue Coumadin for now, monitor. Will also get a cardiology consult. 3. History recent cardiac arrest. Again, see #2. We will continue current medications including C oumadin. We are holding his beta jaquelin because of his congestive heart failure exacerbation. We will get a cardiology consult. He is also on hydralazine 10 mg IV p.r.n. for elevated blood pressur e, although it is stable. 4. History of type 2 diabetes. Continue sliding scale insulin and Lantus. Follow up A1c results. 5. History of atrial fibrillation. Heart rate is presently stable. Continue to monitor for now. 6. Gastrointestinal prophylaxis. Will have the patient on Protonix. 5. Deep venous thrombosis prophylaxis. He is on Coumadin. Dictated By: VERONICA CATALAN Conf#: [id number] DID#: [id number]
[2016-08-31] MEDS: ALBUTEROL/IPRATROPIUM (NEB) 3 ML AMP HHN SCH ×5 (05:47→20:57)
[2016-08-31] MEDS ORDERED: FUROSEMIDE 40 MG INJ IV SCH (06:00)
[2016-08-31] MEDS: ALBUTEROL HFA 8 GM INHALER INH SCH ×5 (06:37→20:54)
[2016-08-31] MEDS: PANTOPRAZOLE (EC) 40 MG TAB PO SCH (06:37)
[2016-08-31] MEDS: INSULIN ASPART [NOVOLOG] 3 ML PEN SC SCH ×5 (06:38→20:57)
[2016-08-31] MEDS ORDERED: INSULIN ASPART [NOVOLOG] 3 ML PEN SC SCH (07:55)
[2016-08-31] MEDS: LACTOBACILLUS RHAMNOSUS CAP PO SCH ×2 (08:26→20:54)
[2016-08-31] MEDS: DOCUSATE SODIUM 100 MG CAP PO SCH (08:26)
[2016-08-31] MEDS: ASPIRIN 81 MG TAB PO SCH (08:26)
[2016-08-31] MEDS: GABAPENTIN 100 MG CAP PO SCH ×3 (08:27→20:54)
[2016-08-31] MEDS: MULTIVITAMINS THERAPEUTIC TAB PO SCH (08:27)
[2016-08-31] MEDS ORDERED: SERTRALINE 100 MG TAB PO SCH (09:00)
--- NOTE | 2016-08-31 16:03 | CONS ---
DATE OF ADMISSION: 08/31/2016 DATE OF CONSULTATION: 08/31/2016 REASON FOR CONSULTATION: Congestive heart failure exacerbation, atrial fibrillation. REQUESTING PHYSICIAN: Dr. Stout from the hospitalist service. HISTORY OF PRESENT ILLNESS: Mr. Weeks is a 75-year-old male with history of congestive h eart failure with preserved left ventricular ejection fraction by echo 07/28/2016 revealing an EF of 65%. Aortic valve and mitral valve, bioprosthetic valve replacements, hypertension, atrial fibrill ation on systemic anticoagulation, dyslipidemia, recent cardiac arrest with no significant disease b y left heart catheterization, diabetes mellitus who initially presented with complaints of shortness of breath. Upon arrival temperature of 98.2, blood pressure 117/65, pulse 79, respiratory 20, satu rating 97%. Patient's labs showed white count 5.7, hemoglobin 8.5, platelet count 140. Sodium 143, potassium 4.4, creatinine 1.0, BUN 17, AST 42, ALT 35. BNP of 1190, free T4 normal at 1.26. INR 1 .77. The patient underwent a chest x-ray revealing chronic congestive heart failure pattern, status post thoracotomy. The patient's electrocardiogram revealed atrial fibrillation at a rate of 87, no rmal axis, normal intervals with nonspecific ST-T abnormalities diffusely and borderline lateral Q's . Patient subsequently has been admitted to the floor and since admit to the floor, has been contin ued on his Coumadin and been started on Lasix gentle diuresis. The patient denies chest pain, has m ild shortness breath at this time. PAST MEDICAL HISTORY: As above in HPI. MEDICATIONS CURRENTLY IN HOSPITAL: 1. Zoloft 20 mg daily. 2. Lipitor 20 mg at bedtime. 3. Singulair. 4. Lantus 10 units subQ at bedtime. 5. Coumadin 7.5 mg daily. 6. Aspirin 81 mg daily. 7. Colace. 8. Gabapentin. 9. MultiVit. 10. Protonix 40 mg daily. 11. Lasix 40 mg IV daily. 12. Insulin sliding scale. 13. Albuterol. 14. Atrovent. 15. Zofran. 16. Morphine p.r.n. 17. Milk of magnesia p.r.n. 18. Fleets enemas p.r.n. 19. DuoNeb p.r.n. 20. Hydralazine p.r.n. 21. Sublingual nitroglycerin p.r.n. ALLERGIES: NO KNOWN DRUG ALLERGIES. SOCIAL HISTORY: No tobacco, ETOH or illicit drug use. FAMILY HISTORY: No history of sudden cardiac or early CAD. REVIEW OF SYSTEMS: As above in HPI. CONSTITUTIONAL: No fevers, chills. PULMONARY: Positive shortness breath. CARDIOVASCULAR: Congestive heart failure. GASTROINTESTINAL: No vomiting. GENITOURINARY: No hematuria. MUSCULOSKELETAL: Degenerative joint disease. PSYCHIATRIC: The patient denies depression. NEUROLOGIC: No documented history of CVA. ENDOCRINE: Diabetes mellitus. PHYSICAL EXAMINATION: VITAL SIGNS: Temperature 97.6, blood pressure most recently 113/60, pulse 75, respiratory 18, satur ating 97%. GENERAL: The patient is alert, awake, in no acute distress. NECK: JVP approximately 10 cm water. CHEST: Bibasilar crackles. HEART: Irregularly irregular, I/ systolic murmur, nondisplaced PMI. ABDOMEN: Positive bowel sounds, soft. EXTREMITIES: Trace edema, 1+ pulses bilaterally, posterior tibial. LABORATORIES: As above in HPI with most recently from today blood sugar of 103. IMAGING STUDIES: As above in HPI. No further imaging studies for my review at this time. ECG: As above in HPI. No further electrocardiograms for my review at this time. IMPRESSION: 1. Congestive heart failure exacerbation, diastolic, acute on chronic. 2. Atrial fibrillation, currently rate controlled on systemic anticoagulation, but is subtherapeuti c. 3. Coagulopathy secondary to Coumadin. 4. 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 5. Diabetes mellitus. 6. History of cardiac arrest with recent left heart catheterization negative for obstructive diseas e. 7. Dyslipidemia. 8. Psychiatric disorder. RECOMMENDATIONS: 1. At this time, would maintain patient on telemetry monitoring to follow rhythm and rate control c losely. 2. Would continue the patient's Lasix diuresis, following strict I's and O's to grade diuresis clos javon. 3. Continue the patient's Coumadin loading and follow INR closely. 4. Continue the patient's aspirin at this time and watch for any bleeding complication. 5. Continue the patient's current statin therapy and adjust it according to a fasting lipid panel t o be checked. 6. Follow the patient's blood sugars closely with adjustment of oral hypoglycemics as necessary. Thank you for allowing me to take part in the care of this patient. I will continue to follow along very closely with you with further recommendations to be made as [facility]. Dictated By: ESTEFANI SERNA/SUDHAKAR Conf#: [id number] DID#: [id number] CC: VERONICA STOUT;*EndCC*
[2016-08-31] MEDS: FUROSEMIDE 40 MG INJ IV SCH (17:32)
[2016-08-31] MEDS: WARFARIN 7.5 MG TAB PO SCH (17:32)
[2016-08-31] MEDS: MONTELUKAST 10 MG TAB PO SCH (20:54)
[2016-08-31] MEDS: ATORVASTATIN 20 MG TAB PO SCH (20:54)
[2016-08-31] MEDS: INSULIN GLARGINE [LANtus] 3 ML PEN SC SCH (20:57)
[2016-09-01] VITALS (13 sets, daily range): BP systolic 92–124; BP diastolic 53–76; PULSE 67–87; RESP 19–20
[2016-09-01] MEDS: INSULIN ASPART [NOVOLOG] 3 ML PEN SC SCH ×6 (01:00→20:24)
[2016-09-01] MEDS: ALBUTEROL HFA 8 GM INHALER INH SCH ×5 (01:00→17:21)
[2016-09-01] MEDS: ALBUTEROL/IPRATROPIUM (NEB) 3 ML AMP HHN SCH ×6 (01:37→20:45)
[2016-09-01] MEDS ORDERED: ACCU-CHEK XX SCH (02:00)
[2016-09-01] MEDS: PANTOPRAZOLE (EC) 40 MG TAB PO SCH (05:47)
[2016-09-01] MEDS: FUROSEMIDE 40 MG INJ IV SCH ×2 (05:47→17:21)
[2016-09-01 06:37] LABS: ADD SCAN DIFF NO
[2016-09-01 06:42] LABS: ABNORMAL IP MESSAGE 1; BASOPHILS % 0.4 % (0.0-2.0); EOSINOPHILS # 0.1 10^3/ul (0.0-0.5); EOSINOPHILS % 1.6 % (0.0-7.0); HEMATOCRIT 25.2 % (42.0-52.0); HEMOGLOBIN 7.9 g/dl (14.0-18.0); LYMPHOCYTES # 0.5 10^3/ul (0.8-2.9); LYMPHOCYTES % 9.4 % (15.0-51.0); MEAN CORPUSCULAR HEMOGLOBIN 30.5 pg (29.0-33.0); MEAN CORPUSCULAR HGB CONC 31.3 g/dl (32.0-37.0); MEAN CORPUSCULAR VOLUME 97.3 fl (82.0-101.0); MEAN PLATELET VOLUME 10.3 fl (7.4-10.4); MONOCYTE # 0.4 10^3/ul (0.3-0.9); MONOCYTES % 7.8 % (0.0-11.0); NEUTROPHIL # 3.9 10^3/ul (1.6-7.5); NEUTROPHILS % 80.6 % (39.0-77.0); PLATELET COUNT 124 10^3/UL (140-415); RED BLOOD COUNT 2.59 10^6/ul (4.70-6.10); RED CELL DISTRIBUTION WIDTH 14.5 % (11.5-14.5); WHITE BLOOD COUNT 4.9 10^3/ul (4.8-10.8)
[2016-09-01 07:12] LABS: POTASSIUM 4.1 mmol/L (3.5-5.1)
[2016-09-01 07:14] LABS: CREATININE 1.34 mg/dl (0.61-1.24)
[2016-09-01 07:15] LABS: CALCIUM 8.6 mg/dl (8.4-10.2); PHOSPHORUS 4.4 mg/dl (2.5-4.9)
[2016-09-01 07:16] LABS: CHOL/HDL RATIO 2.3 RATIO; MAGNESIUM 1.8 mg/dl (1.7-2.5)
[2016-09-01 07:40] LABS: THYROID STIMULATING HORMONE 0.907 MIU/L (0.465-4.680)
[2016-09-01] MEDS: LACTOBACILLUS RHAMNOSUS CAP PO SCH ×2 (08:41→20:22)
[2016-09-01] MEDS: MULTIVITAMINS THERAPEUTIC TAB PO SCH (08:41)
[2016-09-01] MEDS: ASPIRIN 81 MG TAB PO SCH (08:41)
[2016-09-01] MEDS: DOCUSATE SODIUM 100 MG CAP PO SCH (08:41)
[2016-09-01] MEDS: GABAPENTIN 100 MG CAP PO SCH ×3 (08:41→20:22)
[2016-09-01] MEDS: SERTRALINE 100 MG TAB PO SCH (09:59)
[2016-09-01 10:29] LABS: IRON 32 ug/dl (35-150)
[2016-09-01 10:38] LABS: TOTAL IRON BINDING CAPACITY 425 ug/dl (241-421)
--- NOTE | 2016-09-01 13:39 | CONS ---
Date/Time of Note Date/Time of Note DATE: 09/01/16 TIME: 13:35 Assessment/Plan Assessment/Plan Chief Complaint/Hosp Course IMPRESSION: 1. Congestive heart failure exacerbation, diastolic, acute on chronic.- improving volume status 2. Atrial fibrillation, currently rate controlled on systemic anticoagulation, but is subtherapeutic. 3. Coagulopathy secondary to Coumadin. 4. 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 5. Diabetes mellitus. 6. History of cardiac arrest with recent left heart catheterization negative for obstructive disease. 7. Dyslipidemia. 8. Psychiatric disorder. Recc: -Tele -continue lasix diuresis -Continue asa -Coumadin loading and follow INR closely -Continue statin therapy -Start low dose BB Problems: Consultation Date/Type/Reason Admit Date/Time Aug 31, 2016 at 02:14 Initial Consult Date 08/31/16 Type of Consultation: Cardiology Reason for Consultation CHF Referring Provider: KASSANDRA BENITES MD Exam/Review of Systems Vital Signs Vitals Vital Signs Date Time Temp Pulse Resp B/P Pulse Ox O2 Delivery O2 Flow Rate FiO2 09/01/16 13:32 96 2.0 09/01/16 13:31 82 20 Nasal Cannula 09/01/16 11:51 98.2 124/64 09/01/16 05:35 27 Intake and Output 08/31/16 08/31/16 09/01/16 15:00 23:00 07:00 Intake Total 240 ml Output Total 1340 ml Balance -1100 ml Exam Review of Systems: CONSTITUTIONAL: No fevers, chills. PULMONARY: No sob CARDIOVASCULAR: No chest pain/palpitations GASTROINTESTINAL: No nausea/vomiting. GENITOURINARY: No hematuria/dysuria. MUSCULOSKELETAL: No myagias/arthalgias. PSYCHIATRIC: The patient denies depression. NEUROLOGIC: No weakness Constitutional: alert, oriented Psych: no complaints Head: normocephalic ENMT: mucosa pink and moist Neck: jvd (9cm water) Respiratory: diminished breath sounds Cardiovascular: regular rate and rhythm Gastrointestinal: non-tender, soft Musculoskeletal: muscle tone Extremities: normal pulses 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: other (No focal deficits) Results Result Diagram: 09/01/16 0604 09/01/16 0604 Results 24 hrs Laboratory Tests Test 08/31/16 16:52 08/31/16 18:15 08/31/16 19:40 09/01/16 00:40 Bedside Glucose 88 244 H Troponin I 0.020 0.029 Test 09/01/16 05:46 09/01/16 06:04 09/01/16 07:39 09/01/16 11:52 Bedside Glucose 86 103 146 Anion Gap 14 Basophils # 0.0 Basophils % 0.4 Blood Urea Nitrogen 23 H Calcium Level 8.6 Carbon Dioxide Level 31 Chloride Level 98 Cholesterol Level 86 L Cholesterol/HDL Ratio 2.3 Creatinine 1.34 H Eosinophils # 0.1 Eosinophils % 1.6 Glucose Level 81 HDL Cholesterol 36 Hematocrit 25.2 L Hemoglobin 7.9 L Hemoglobin A1c 8.5 H Iron Level 32 L LDL Cholesterol, Calculated 40 Lymphocytes # 0.5 L Lymphocytes % 9.4 L Magnesium Level 1.8 Mean Corpuscular Hemoglobin 30.5 Mean Corpuscular Hemoglobin Concent 31.3 L Mean Corpuscular Volume 97.3 Mean Platelet Volume 10.3 Monocytes # 0.4 Monocytes % 7.8 Neutrophils # 3.9 Neutrophils % 80.6 H Nucleated Red Blood Cells # 0.0 Nucleated Red Blood Cells % 0.0 Percent Iron Saturation 8 L Phosphorus Level 4.4 Platelet Count 124 L Potassium Level 4.1 Red Blood Count 2.59 L Red Cell Distribution Width 14.5 Sodium Level 139 Thyroid Stimulating Hormone (TSH) 0.907 Total Iron Binding Capacity 425 H Triglycerides Level 49 White Blood Count 4.9 Medications Medications Current Medications Ondansetron HCl (Zofran Inj) 4 mg Q6H PRN IV NAUSEA AND/OR VOMITING; Start at 03:30 Acetaminophen (Tylenol Tab) 650 mg Q6H PRN PO PAIN LEVEL 1-3 OR FEVER; Start at 03:30 Acetaminophen/ Hydrocodone Bitart ([place] (5/325)) 1 tab Q6H PRN PO MODERATE PAIN LEVEL 4-6; Start 08/31/16 at 03:30 Morphine Sulfate (morphine) 2 mg Q4H PRN IV SEVERE PAIN LEVEL 7-10; Start 08/31 at 03:30 Docusate Sodium (Colace) 100 mg Q12H PRN PO CONSTIPATION; Start 08/31/16 at 03: 30 Magnesium Hydroxide (Milk Of Mag) 30 ml DAILY PRN PO CONSTIPATION; Start at 03:30 Sodium Biphosphate/ Sodium Phosphate (Fleet Enema) 133 ml DAILY PRN [place] CONSTIPATION; Start 08/31/16 at 03:30 Lorazepam (Ativan) 0.5 mg Q6H PRN IV ANXIETY; Start 08/31/16 at 03:30 Hydralazine HCl (Apresoline) 10 mg Q6H PRN IV ELEVATED BLOOD PRESSURE; Start at 03:30 Nitroglycerin (Nitroglycerin (Sl Tab) 0.4 Mg) 1 tab Q5M PRN SL ANGINA; Start at 03:30 Insulin Aspart (Novolog Insulin Pen) NOVOLOG *MILD* ALGORI... Q4 SC Last administered on 09/01/16 13:10; Admin Dose 1 UNIT; Start 08/31/16 at 05:00 Aspirin (Aspirin) 81 mg DAILY PO Last administered on 09/01/16 08:41; Admin Dose 81 MG; Start 08/31/16 at 09:00 Atorvastatin Calcium (Lipitor) 20 mg HS PO Last administered on 08/31/16 20:54 ; Admin Dose 20 MG; Start 08/31/16 at 21:00 Docusate Sodium (Colace) 100 mg DAILY PO Last administered on 09/01/16 08:41; Admin Dose 100 MG; Start 08/31/16 at 09:00 Gabapentin (Neurontin) 200 mg TID PO Last administered on 09/01/16 13:04; Admin Dose 200 MG; Start 08/31/16 at 09:00 Insulin Glargine (Lantus) 10 unit DAILY@20 SC Last administered on 08/31/16 20 :57; Admin Dose 10 UNIT; Start 08/31/16 at 20:00 Lactobacillus Acidophilus/ Rhamnosus (Culturelle) 1 cap BID PO Last administered on 09/01/16 08:41; Admin Dose 1 CAP; Start 08/31/16 at 09:00 Montelukast Sodium (Singulair) 10 mg HS PO Last administered on 08/31/16 20:54 ; Admin Dose 10 MG; Start 08/31/16 at 21:00 Pantoprazole (Protonix Tab) 40 mg DAILY@06 PO Last administered on 09/01/16 05 :47; Admin Dose 40 MG; Start 08/31/16 at 06:00 Warfarin Sodium (Coumadin) 7.5 mg DAILY@17 PO Last administered on 08/31/16 17 :32; Admin Dose 7.5 MG; Start 08/31/16 at 17:00 Multivitamins Therapeutic (Theragran) 1 tab DAILY PO Last administered on 08:41; Admin Dose 1 TAB; Start 08/31/16 at 09:00 Miscellaneous Information 1 ea NOTE XX ; Start 08/31/16 at 03:30 Glucose (Glutose) 15 gm Q15M PRN PO DECREASED GLUCOSE; Start 08/31/16 at 03:30 Glucose (Glutose) 22.5 gm Q15M PRN PO DECREASED GLUCOSE; Start 08/31/16 at 03: 30 Dextrose (D50w Syringe) 25 ml Q15M PRN IV DECREASED GLUCOSE; Start 08/31/16 at 03:30 Dextrose (D50w Syringe) 50 ml Q15M PRN IV DECREASED GLUCOSE; Start 08/31/16 at 03:30 Glucagon (Glucagen) 1 mg Q15M PRN IM DECREASED GLUCOSE; Start 08/31/16 at 03:30 Glucose (Glutose) 15 gm Q15M PRN BUCCAL DECREASED GLUCOSE; Start 08/31/16 at 03 :30 Sertraline HCl (Zoloft) 100 mg DAILY PO ; Start 09/01/16 at 09:59 ESTEFANI BORREGO Sep 01, 2016 13:39
--- NOTE | 2016-09-01 17:19 | PN ---
Date/Time of Note Date/Time of Note DATE: 09/01/16 TIME: 17:15 Assessment/Plan VTE Prophylaxis VTE Prophylaxis Intervention: other (Warfarin) Lines/Catheters IV C[facility]from [facility] Urinary Cath still in place: No Assessment/Plan Chief Complaint/Hosp Course Assessment and plan 1. Dyspnea secondary to CHF exacerbation. Continue on diuretic. [place] following. Continue optimization with cardiovascular medications. Of note echocardiogram done on July 27, 2016 did show ejection fraction of 65%. 2. History of aortic and mitral valve replacement. Continue on Coumadin medication. Monitor for anemia. 3. History of recent cardiac arrest. Beta-jaquelin per senior energy analyst. Monitor for response. 4. Type 2 diabetes. Continue on insulin regimen. Will adjust as needed 5. History of atrial fibrillation. Continue on beta-jaquelin and anticoagulant GERD prophylaxis: Protonix DVT prophylaxis: Coumadin Disposition and plan: Still with some shortness of breath. Await clinical improvement of respiratory status. Continue on diuretic. Discharge when cleared by consultants Problems: Subjective 24 Hr Interval Summary Free Text/Dictation Still reports having some shortness of breath. Denies any chest pain Exam/Review of Systems Vital Signs Vitals Vital Signs Date Time Temp Pulse Resp B/P Pulse Ox O2 Delivery O2 Flow Rate FiO2 09/01/16 15:36 98.3 79 19 119/72 98 09/01/16 13:32 2.0 09/01/16 13:31 Nasal Cannula 09/01/16 05:35 27 Intake and Output 08/31/16 08/31/16 09/01/16 15:00 23:00 07:00 Intake Total 240 ml Output Total 1340 ml Balance -1100 ml Exam General: Appears improved at this time. Reports some shortness of breath but better eyes: [pupils equal round, Anicteric sclera] Neck: Supple nontender, no JVD Cardiac: Regular rate at this Pulmonary: No obvious wheezing or GI: Soft nontender Extremities: Minimal edema bilateral lower extremities plus Skin: [Clean dry and intact] Neurologic: [Alert to person place and time and situation] Results Result Diagram: 09/01/16 0604 09/01/16 0604 Results 24 hrs Laboratory Tests Test 08/31/16 18:15 08/31/16 19:40 09/01/16 00:40 09/01/16 05:46 Troponin I 0.020 0.029 Bedside Glucose 244 H 86 Test 09/01/16 06:04 09/01/16 07:39 09/01/16 11:52 Anion Gap 14 Basophils # 0.0 Basophils % 0.4 Blood Urea Nitrogen 23 H Calcium Level 8.6 Carbon Dioxide Level 31 Chloride Level 98 Cholesterol Level 86 L Cholesterol/HDL Ratio 2.3 Creatinine 1.34 H Eosinophils # 0.1 Eosinophils % 1.6 Glucose Level 81 HDL Cholesterol 36 Hematocrit 25.2 L Hemoglobin 7.9 L Hemoglobin A1c 8.5 H Iron Level 32 L LDL Cholesterol, Calculated 40 Lymphocytes # 0.5 L Lymphocytes % 9.4 L Magnesium Level 1.8 Mean Corpuscular Hemoglobin 30.5 Mean Corpuscular Hemoglobin Concent 31.3 L Mean Corpuscular Volume 97.3 Mean Platelet Volume 10.3 Monocytes # 0.4 Monocytes % 7.8 Neutrophils # 3.9 Neutrophils % 80.6 H Nucleated Red Blood Cells # 0.0 Nucleated Red Blood Cells % 0.0 Percent Iron Saturation 8 L Phosphorus Level 4.4 Platelet Count 124 L Potassium Level 4.1 Red Blood Count 2.59 L Red Cell Distribution Width 14.5 Sodium Level 139 Thyroid Stimulating Hormone (TSH) 0.907 Total Iron Binding Capacity 425 H Triglycerides Level 49 White Blood Count 4.9 Bedside Glucose 103 146 Medications Medications Current Medications Ondansetron HCl (Zofran Inj) 4 mg Q6H PRN IV NAUSEA AND/OR VOMITING; Start at 03:30 Acetaminophen (Tylenol Tab) 650 mg Q6H PRN PO PAIN LEVEL 1-3 OR FEVER; Start at 03:30 Acetaminophen/ Hydrocodone Bitart ([place] (5/325)) 1 tab Q6H PRN PO MODERATE PAIN LEVEL 4-6; Start 08/31/16 at 03:30 Morphine Sulfate (morphine) 2 mg Q4H PRN IV SEVERE PAIN LEVEL 7-10; Start 08/31 at 03:30 Docusate Sodium (Colace) 100 mg Q12H PRN PO CONSTIPATION; Start 08/31/16 at 03: 30 Magnesium Hydroxide (Milk Of Mag) 30 ml DAILY PRN PO CONSTIPATION; Start at 03:30 Sodium Biphosphate/ Sodium Phosphate (Fleet Enema) 133 ml DAILY PRN [place] CONSTIPATION; Start 08/31/16 at 03:30 Lorazepam (Ativan) 0.5 mg Q6H PRN IV ANXIETY; Start 08/31/16 at 03:30 Hydralazine HCl (Apresoline) 10 mg Q6H PRN IV ELEVATED BLOOD PRESSURE; Start at 03:30 Nitroglycerin (Nitroglycerin (Sl Tab) 0.4 Mg) 1 tab Q5M PRN SL ANGINA; Start at 03:30 Insulin Aspart (Novolog Insulin Pen) NOVOLOG *MILD* ALGORI... Q4 SC Last administered on 09/01/16 13:10; Admin Dose 1 UNIT; Start 08/31/16 at 05:00 Aspirin (Aspirin) 81 mg DAILY PO Last administered on 09/01/16 08:41; Admin Dose 81 MG; Start 08/31/16 at 09:00 Atorvastatin Calcium (Lipitor) 20 mg HS PO Last administered on 08/31/16 20:54 ; Admin Dose 20 MG; Start 08/31/16 at 21:00 Docusate Sodium (Colace) 100 mg DAILY PO Last administered on 09/01/16 08:41; Admin Dose 100 MG; Start 08/31/16 at 09:00 Gabapentin (Neurontin) 200 mg TID PO Last administered on 09/01/16 13:04; Admin Dose 200 MG; Start 08/31/16 at 09:00 Insulin Glargine (Lantus) 10 unit DAILY@20 SC Last administered on 08/31/16 20 :57; Admin Dose 10 UNIT; Start 08/31/16 at 20:00 Lactobacillus Acidophilus/ Rhamnosus (Culturelle) 1 cap BID PO Last administered on 09/01/16 08:41; Admin Dose 1 CAP; Start 08/31/16 at 09:00 Montelukast Sodium (Singulair) 10 mg HS PO Last administered on 08/31/16 20:54 ; Admin Dose 10 MG; Start 08/31/16 at 21:00 Pantoprazole (Protonix Tab) 40 mg DAILY@06 PO Last administered on 09/01/16 05 :47; Admin Dose 40 MG; Start 08/31/16 at 06:00 Warfarin Sodium (Coumadin) 7.5 mg DAILY@17 PO Last administered on 08/31/16 17 :32; Admin Dose 7.5 MG; Start 08/31/16 at 17:00 Multivitamins Therapeutic (Theragran) 1 tab DAILY PO Last administered on 08:41; Admin Dose 1 TAB; Start 08/31/16 at 09:00 Miscellaneous Information 1 ea NOTE XX ; Start 08/31/16 at 03:30 Glucose (Glutose) 15 gm Q15M PRN PO DECREASED GLUCOSE; Start 08/31/16 at 03:30 Glucose (Glutose) 22.5 gm Q15M PRN PO DECREASED GLUCOSE; Start 08/31/16 at 03: 30 Dextrose (D50w Syringe) 25 ml Q15M PRN IV DECREASED GLUCOSE; Start 08/31/16 at 03:30 Dextrose (D50w Syringe) 50 ml Q15M PRN IV DECREASED GLUCOSE; Start 08/31/16 at 03:30 Glucagon (Glucagen) 1 mg Q15M PRN IM DECREASED GLUCOSE; Start 08/31/16 at 03:30 Glucose (Glutose) 15 gm Q15M PRN BUCCAL DECREASED GLUCOSE; Start 08/31/16 at 03 :30 Sertraline HCl (Zoloft) 100 mg DAILY PO ; Start 09/01/16 at 09:59 Metoprolol Tartrate (Lopressor) 25 mg BID PO ; Start 09/01/16 at 21:00 EVA PEACE Sep 01, 2016 17:19
[2016-09-01] MEDS: WARFARIN 7.5 MG TAB PO SCH (17:21)
[2016-09-01] MEDS: SOD FERRIC GLUC COMPLX 125 MG in SOD CHLORIDE 0.9% 100 ML IVPB SCH (18:30)
[2016-09-01] MEDS: METOPROLOL 25 MG TAB PO SCH (20:22)
[2016-09-01] MEDS: MONTELUKAST 10 MG TAB PO SCH (20:22)
[2016-09-01] MEDS: ATORVASTATIN 20 MG TAB PO SCH (20:22)
[2016-09-01] MEDS: INSULIN GLARGINE [LANtus] 3 ML PEN SC SCH (20:24)
[2016-09-02] VITALS (11 sets, daily range): BP systolic 95–122; BP diastolic 55–89; PULSE 66–83; RESP 15–19
[2016-09-02] MEDS: ALBUTEROL HFA 8 GM INHALER INH SCH ×7 (00:44→20:56)
[2016-09-02] MEDS: ALBUTEROL/IPRATROPIUM (NEB) 3 ML AMP HHN SCH ×6 (01:26→20:37)
[2016-09-02] MEDS: ACCUCHECK AT 2AM (Patients on SS coverage) XX SCH (02:00)
[2016-09-02] MEDS: PANTOPRAZOLE (EC) 40 MG TAB PO SCH (06:19)
[2016-09-02] MEDS: FUROSEMIDE 40 MG INJ IV SCH ×2 (06:20→18:51)
[2016-09-02 06:56] LABS: ADD SCAN DIFF NO
[2016-09-02 06:59] LABS: ABNORMAL IP MESSAGE 1; BASOPHILS % 0.4 % (0.0-2.0); EOSINOPHILS # 0.1 10^3/ul (0.0-0.5); EOSINOPHILS % 2.3 % (0.0-7.0); HEMATOCRIT 26.6 % (42.0-52.0); HEMOGLOBIN 8.2 g/dl (14.0-18.0); LYMPHOCYTES # 0.5 10^3/ul (0.8-2.9); LYMPHOCYTES % 8.5 % (15.0-51.0); MEAN CORPUSCULAR HEMOGLOBIN 29.8 pg (29.0-33.0); MEAN CORPUSCULAR HGB CONC 30.8 g/dl (32.0-37.0); MEAN CORPUSCULAR VOLUME 96.7 fl (82.0-101.0); MEAN PLATELET VOLUME 9.9 fl (7.4-10.4); MONOCYTE # 0.6 10^3/ul (0.3-0.9); MONOCYTES % 10.8 % (0.0-11.0); NEUTROPHIL # 4.1 10^3/ul (1.6-7.5); NEUTROPHILS % 77.8 % (39.0-77.0); PLATELET COUNT 125 10^3/UL (140-415); RED BLOOD COUNT 2.75 10^6/ul (4.70-6.10); RED CELL DISTRIBUTION WIDTH 14.5 % (11.5-14.5); WHITE BLOOD COUNT 5.3 10^3/ul (4.8-10.8)
[2016-09-02 07:18] LABS: POTASSIUM 3.6 mmol/L (3.5-5.1)
[2016-09-02 07:20] LABS: CREATININE 1.29 mg/dl (0.61-1.24)
[2016-09-02 07:21] LABS: CALCIUM 8.8 mg/dl (8.4-10.2)
[2016-09-02] MEDS ORDERED: INSULIN ASPART [NOVOLOG] 3 ML PEN SC SCH (07:25)
[2016-09-02] MEDS: Insulin NOVOLOG SS MILD Algorithm (SS with meals and bedtime) SC SCH ×4 (07:25→20:45)
[2016-09-02] MEDS: ASPIRIN 81 MG TAB PO SCH (09:40)
[2016-09-02] MEDS: LACTOBACILLUS RHAMNOSUS CAP PO SCH ×2 (09:40→20:44)
[2016-09-02] MEDS: MULTIVITAMINS THERAPEUTIC TAB PO SCH (09:40)
[2016-09-02] MEDS: DOCUSATE SODIUM 100 MG CAP PO SCH (09:41)
[2016-09-02] MEDS: GABAPENTIN 100 MG CAP PO SCH ×3 (09:41→20:44)
[2016-09-02] MEDS: SERTRALINE 100 MG TAB PO SCH (09:41)
[2016-09-02] MEDS: METOPROLOL 25 MG TAB PO SCH ×2 (09:41→20:45)
[2016-09-02 14:20] LABS: INR 1.74; PROTIME 20.5 Sec (12.2-14.2); PT RATIO 1.6
[2016-09-02] MEDS ORDERED: FER325 PO (16:26)
[2016-09-02] MEDS ORDERED: Furosemide IV (16:26)
[2016-09-02] MEDS ORDERED: NOVO3I SC (16:26)
--- NOTE | 2016-09-02 16:30 | PDOCDIS ---
Discharge Instructions DIAGNOSIS Discharge Diagnosis: 1. Dyspnea secondary to CHF exacerbation 2. Aortic and mitral valve repla CONDITION Patient Condition: Guarded HOME CARE INSTRUCTIONS: Diet Instructions: Low Fat /Cholesterol OTHER ORDERS: Other Orders: Further care management per May respiratory failure EVA PEACE Sep 02, 2016 16:29
[2016-09-02] MEDS: SOD FERRIC GLUC COMPLX 125 MG in SOD CHLORIDE 0.9% 100 ML IVPB SCH (17:57)
[2016-09-02] MEDS: WARFARIN 7.5 MG TAB PO SCH (17:58)
--- NOTE | 2016-09-02 18:14 | CONS ---
Date/Time of Note Date/Time of Note DATE: 09/02/16 TIME: 18:12 Assessment/Plan Assessment/Plan Chief Complaint/Hosp Course IMPRESSION: 1. Congestive heart failure exacerbation, diastolic, acute on chronic.- improving volume status 2. Atrial fibrillation, currently rate controlled on systemic anticoagulation, but is subtherapeutic. 3. Coagulopathy secondary to Coumadin. 4. 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 5. Diabetes mellitus. 6. History of cardiac arrest with recent left heart catheterization negative for obstructive disease. 7. Dyslipidemia. 8. Psychiatric disorder. Recc: -Tele -continue lasix diuresis -Continue asa/BB -Coumadin loading and follow INR closely -Continue statin therapy -D/C planning with outpatient f/u Problems: Consultation Date/Type/Reason Admit Date/Time Sep 02, 2016 at 11:57 Initial Consult Date 08/31/16 Type of Consultation: Cardiology Reason for Consultation CHF Referring Provider: KASSANDRA BENITES MD Exam/Review of Systems Vital Signs Vitals Vital Signs Date Time Temp Pulse Resp B/P Pulse Ox O2 Delivery O2 Flow Rate FiO2 09/02/16 16:30 67 09/02/16 16:28 20 97 Nasal Cannula 2.0 09/02/16 15:42 98.4 95/55 09/01/16 05:35 27 Intake and Output 09/01/16 09/01/16 09/02/16 15:00 23:00 07:00 Intake Total 910 ml 350 ml Output Total 1600 ml 875 ml Balance -690 ml -525 ml Exam Review of Systems: CONSTITUTIONAL: No fevers, chills. PULMONARY: mild sob CARDIOVASCULAR: No chest pain/palpitations GASTROINTESTINAL: No nausea/vomiting. GENITOURINARY: No hematuria/dysuria. MUSCULOSKELETAL: No myagias/arthalgias. PSYCHIATRIC: The patient denies depression. NEUROLOGIC: No weakness Constitutional: alert Psych: no complaints Head: normocephalic ENMT: mucosa pink and moist Neck: jvd (9 cm water), supple Respiratory: clear to auscultation Cardiovascular: regular rate and rhythm Gastrointestinal: non-tender, soft Musculoskeletal: muscle tone (normal) Extremities: edema (none) 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: other (No frocal deficits) Results Result Diagram: 09/02/16 0635 09/02/16 0635 Results 24 hrs Laboratory Tests Test 09/01/16 20:19 09/02/16 06:35 09/02/16 08:07 09/02/16 11:46 Bedside Glucose 112 90 161 Anion Gap 12 Basophils # 0.0 Basophils % 0.4 Blood Urea Nitrogen 25 H Calcium Level 8.8 Carbon Dioxide Level 34 H Chloride Level 97 Creatinine 1.29 H Eosinophils # 0.1 Eosinophils % 2.3 Glucose Level 66 #L Hematocrit 26.6 L Hemoglobin 8.2 L Lymphocytes # 0.5 L Lymphocytes % 8.5 L Mean Corpuscular Hemoglobin 29.8 Mean Corpuscular Hemoglobin Concent 30.8 L Mean Corpuscular Volume 96.7 Mean Platelet Volume 9.9 Monocytes # 0.6 Monocytes % 10.8 Neutrophils # 4.1 Neutrophils % 77.8 H Nucleated Red Blood Cells # 0.0 Nucleated Red Blood Cells % 0.0 Platelet Count 125 L Potassium Level 3.6 Red Blood Count 2.75 L Red Cell Distribution Width 14.5 Sodium Level 139 White Blood Count 5.3 Test 09/02/16 14:00 09/02/16 17:26 INR International Normalized Ratio 1.74 Prothrombin Time 20.5 H Prothrombin Time Ratio 1.6 Bedside Glucose 144 Medications Medications Current Medications Ondansetron HCl (Zofran Inj) 4 mg Q6H PRN IV NAUSEA AND/OR VOMITING; Start at 03:30 Acetaminophen (Tylenol Tab) 650 mg Q6H PRN PO PAIN LEVEL 1-3 OR FEVER; Start at 03:30 Acetaminophen/ Hydrocodone Bitart ([place] (5/325)) 1 tab Q6H PRN PO MODERATE PAIN LEVEL 4-6; Start 08/31/16 at 03:30 Morphine Sulfate (morphine) 2 mg Q4H PRN IV SEVERE PAIN LEVEL 7-10; Start 08/31 at 03:30 Docusate Sodium (Colace) 100 mg Q12H PRN PO CONSTIPATION; Start 08/31/16 at 03: 30 Magnesium Hydroxide (Milk Of Mag) 30 ml DAILY PRN PO CONSTIPATION; Start at 03:30 Sodium Biphosphate/ Sodium Phosphate (Fleet Enema) 133 ml DAILY PRN [place] CONSTIPATION; Start 08/31/16 at 03:30 Lorazepam (Ativan) 0.5 mg Q6H PRN IV ANXIETY; Start 08/31/16 at 03:30 Hydralazine HCl (Apresoline) 10 mg Q6H PRN IV ELEVATED BLOOD PRESSURE; Start at 03:30 Nitroglycerin (Nitroglycerin (Sl Tab) 0.4 Mg) 1 tab Q5M PRN SL ANGINA; Start at 03:30 Aspirin (Aspirin) 81 mg DAILY PO Last administered on 09/02/16 09:40; Admin Dose 81 MG; Start 08/31/16 at 09:00 Atorvastatin Calcium (Lipitor) 20 mg HS PO Last administered on 09/01/16 20:22 ; Admin Dose 20 MG; Start 08/31/16 at 21:00 Docusate Sodium (Colace) 100 mg DAILY PO Last administered on 09/02/16 09:41; Admin Dose 100 MG; Start 08/31/16 at 09:00 Gabapentin (Neurontin) 200 mg TID PO Last administered on 09/02/16 15:26; Admin Dose 200 MG; Start 08/31/16 at 09:00 Insulin Glargine (Lantus) 10 unit DAILY@20 SC Last administered on 09/01/16 20 :24; Admin Dose 10 UNIT; Start 08/31/16 at 20:00 Lactobacillus Acidophilus/ Rhamnosus (Culturelle) 1 cap BID PO Last administered on 09/02/16 09:40; Admin Dose 1 CAP; Start 08/31/16 at 09:00 Montelukast Sodium (Singulair) 10 mg HS PO Last administered on 09/01/16 20:22 ; Admin Dose 10 MG; Start 08/31/16 at 21:00 Pantoprazole (Protonix Tab) 40 mg DAILY@06 PO Last administered on 09/02/16 06 :19; Admin Dose 40 MG; Start 08/31/16 at 06:00 Warfarin Sodium (Coumadin) 7.5 mg DAILY@17 PO Last administered on 09/02/16 17 :58; Admin Dose 7.5 MG; Start 08/31/16 at 17:00 Multivitamins Therapeutic (Theragran) 1 tab DAILY PO Last administered on 09:40; Admin Dose 1 TAB; Start 08/31/16 at 09:00 Miscellaneous Information 1 ea NOTE XX ; Start 08/31/16 at 03:30 Glucose (Glutose) 15 gm Q15M PRN PO DECREASED GLUCOSE; Start 08/31/16 at 03:30 Glucose (Glutose) 22.5 gm Q15M PRN PO DECREASED GLUCOSE; Start 08/31/16 at 03: 30 Dextrose (D50w Syringe) 25 ml Q15M PRN IV DECREASED GLUCOSE; Start 08/31/16 at 03:30 Dextrose (D50w Syringe) 50 ml Q15M PRN IV DECREASED GLUCOSE; Start 08/31/16 at 03:30 Glucagon (Glucagen) 1 mg Q15M PRN IM DECREASED GLUCOSE; Start 08/31/16 at 03:30 Glucose (Glutose) 15 gm Q15M PRN BUCCAL DECREASED GLUCOSE; Start 08/31/16 at 03 :30 Sertraline HCl (Zoloft) 100 mg DAILY PO Last administered on 09/02/16 09:41; Admin Dose 100 MG; Start 09/01/16 at 09:59 Metoprolol Tartrate 25 mg 25 mg BID PO Last administered on 09/02/16 09:41; Admin Dose 25 MG; Start 09/01/16 at 21:00 Ferric Sodium Gluconate Complex/ Sodium Chloride (Ferrlecit/NS) 110 ml @ 110 mls/hr Q24H IVPB Last administered on 09/02/16 17:57; Admin Dose 110 MLS/HR; Start 09/01/16 at 17:30; Stop 09/05/16 at 18:29 Diagnostic Test (Pha) (Accucheck) 1 ea 02 XX ; Start 09/02/16 at 02:00 ESTEFANI BORREGO 17, 2017 18:14
[2016-09-02] MEDS: ATORVASTATIN 20 MG TAB PO SCH (20:44)
[2016-09-02] MEDS: MONTELUKAST 10 MG TAB PO SCH (20:44)
[2016-09-02] MEDS: INSULIN GLARGINE [LANtus] 3 ML PEN SC SCH (20:54)
[2016-09-03] VITALS (17 sets, daily range): BP systolic 77–182; BP diastolic 50–64; PULSE 65–95; RESP 16–19
[2016-09-03] MEDS: ALBUTEROL/IPRATROPIUM (NEB) 3 ML AMP HHN SCH ×6 (00:42→20:06)
[2016-09-03] MEDS: ALBUTEROL HFA 8 GM INHALER INH SCH ×6 (01:00→21:00)
[2016-09-03] MEDS: ACCUCHECK AT 2AM (Patients on SS coverage) XX SCH (02:00)
[2016-09-03 05:52] LABS: ADD SCAN DIFF NO
[2016-09-03 05:59] LABS: ABNORMAL IP MESSAGE 1; BASOPHILS % 0.4 % (0.0-2.0); EOSINOPHILS # 0.2 10^3/ul (0.0-0.5); EOSINOPHILS % 2.8 % (0.0-7.0); HEMATOCRIT 26.7 % (42.0-52.0); HEMOGLOBIN 8.2 g/dl (14.0-18.0); LYMPHOCYTES # 0.6 10^3/ul (0.8-2.9); LYMPHOCYTES % 10.6 % (15.0-51.0); MEAN CORPUSCULAR HEMOGLOBIN 29.5 pg (29.0-33.0); MEAN CORPUSCULAR HGB CONC 30.7 g/dl (32.0-37.0); MEAN PLATELET VOLUME 10.5 fl (7.4-10.4); MONOCYTE # 0.6 10^3/ul (0.3-0.9); MONOCYTES % 11.5 % (0.0-11.0); NEUTROPHILS % 74.5 % (39.0-77.0); PLATELET COUNT 142 10^3/UL (140-415); RED BLOOD COUNT 2.78 10^6/ul (4.70-6.10); RED CELL DISTRIBUTION WIDTH 14.6 % (11.5-14.5); WHITE BLOOD COUNT 5.4 10^3/ul (4.8-10.8)
[2016-09-03] MEDS: FUROSEMIDE 40 MG INJ IV SCH ×2 (06:00→17:55)
[2016-09-03] MEDS: PANTOPRAZOLE (EC) 40 MG TAB PO SCH (06:04)
[2016-09-03 06:13] LABS: POTASSIUM 3.6 mmol/L (3.5-5.1)
[2016-09-03 06:16] LABS: CREATININE 1.37 mg/dl (0.61-1.24)
[2016-09-03 06:17] LABS: CALCIUM 8.8 mg/dl (8.4-10.2)
[2016-09-03] MEDS: Insulin NOVOLOG SS MILD Algorithm (SS with meals and bedtime) SC SCH ×4 (07:25→21:10)
[2016-09-03] MEDS: MULTIVITAMINS THERAPEUTIC TAB PO SCH (09:55)
[2016-09-03] MEDS: DOCUSATE SODIUM 100 MG CAP PO SCH (09:55)
[2016-09-03] MEDS: METOPROLOL 25 MG TAB PO SCH ×2 (09:56→21:00)
[2016-09-03] MEDS: GABAPENTIN 100 MG CAP PO SCH ×3 (09:56→21:06)
[2016-09-03] MEDS: LACTOBACILLUS RHAMNOSUS CAP PO SCH ×2 (09:56→21:05)
[2016-09-03] MEDS: ASPIRIN 81 MG TAB PO SCH (09:56)
[2016-09-03] MEDS: SERTRALINE 100 MG TAB PO SCH (10:00)
--- NOTE | 2016-09-03 10:45 | PN ---
Date/Time of Note Date/Time of Note LATE ENTRY DATE: 09/02/16 Assessment/Plan VTE Prophylaxis VTE Prophylaxis Intervention: other (warfarin) Lines/Catheters IV [facility] Urinary Cath still in place: No Assessment/Plan Chief Complaint/Hosp Course Assessment and plan 1. Dyspnea secondary to CHF exacerbation. Continue on diuretic. Inspector Insulation following. Continue optimization with cardiovascular medications. Of note echocardiogram done on July 27, 2016 did show ejection fraction of 65%. good response with current regimen 2. History of aortic and mitral valve replacement. Continue on Coumadin medication. Monitor for anemia.stable at present 3. History of recent cardiac arrest. Beta-jaquelin per elastic attacher coverstitch. cont with cardiology recs 4. Type 2 diabetes. Continue on insulin regimen. Will adjust as needed. appears stable 5. History of atrial fibrillation. Continue on beta-jaquelin and anticoagulant GERD prophylaxis: Protonix DVT prophylaxis: Coumadin Disposition and plan: tentative plan for May transfer. will follow up Discussed plan of care with Dr. Gonzalez Problems: Subjective 24 Hr Interval Summary Free Text/Dictation no s/s of distress. reports better breathing Exam/Review of Systems Vital Signs Vitals Vital Signs Date Time Temp Pulse Resp B/P Pulse Ox O2 Delivery O2 Flow Rate FiO2 09/03/16 09:08 95 115/59 09/03/16 07:50 98.7 17 96 09/03/16 05:39 Nasal Cannula 2.0 09/03/16 00:42 21 Intake and Output 09/02/16 09/02/16 09/03/16 15:00 23:00 07:00 Intake Total 810 ml 900 ml Output Total 1200 ml 1400 ml Balance -390 ml -500 ml Exam General: Appears improved at this time. no s/s of distress eyes: pupils equal round, tracks Neck: Supple nontender, no JVD Cardiac: Regular rate at this Pulmonary: No obvious wheezing or rhonchi GI: Soft nontender Extremities: Minimal edema bilateral lower extremities plus Skin: cdi Neurologic: torri x4 Results Result Diagram: 09/03/16 0500 09/03/16 0500 Results 24 hrs Laboratory Tests Test 09/02/16 11:46 09/02/16 14:00 09/02/16 17:26 09/02/16 20:30 Bedside Glucose 161 144 160 INR International Normalized Ratio 1.74 Prothrombin Time 20.5 H Prothrombin Time Ratio 1.6 Test 09/03/16 05:00 09/03/16 09:11 Anion Gap 15 Basophils # 0.0 Basophils % 0.4 Blood Urea Nitrogen 29 H Calcium Level 8.8 Carbon Dioxide Level 34 H Chloride Level 98 Creatinine 1.37 H Eosinophils # 0.2 Eosinophils % 2.8 Glucose Level 121 # Hematocrit 26.7 L Hemoglobin 8.2 L Lymphocytes # 0.6 L Lymphocytes % 10.6 L Mean Corpuscular Hemoglobin 29.5 Mean Corpuscular Hemoglobin Concent 30.7 L Mean Corpuscular Volume 96.0 Mean Platelet Volume 10.5 H Monocytes # 0.6 Monocytes % 11.5 H Neutrophils # 4.0 Neutrophils % 74.5 Nucleated Red Blood Cells # 0.0 Nucleated Red Blood Cells % 0.0 Platelet Count 142 Potassium Level 3.6 Red Blood Count 2.78 L Red Cell Distribution Width 14.6 H Sodium Level 143 White Blood Count 5.4 Bedside Glucose 128 Medications Medications Current Medications Ondansetron HCl (Zofran Inj) 4 mg Q6H PRN IV NAUSEA AND/OR VOMITING; Start at 03:30 Acetaminophen (Tylenol Tab) 650 mg Q6H PRN PO PAIN LEVEL 1-3 OR FEVER; Start at 03:30 Acetaminophen/ Hydrocodone Bitart ([place] (5/325)) 1 tab Q6H PRN PO MODERATE PAIN LEVEL 4-6; Start 08/31/16 at 03:30 Morphine Sulfate (morphine) 2 mg Q4H PRN IV SEVERE PAIN LEVEL 7-10; Start 08/31 at 03:30 Docusate Sodium (Colace) 100 mg Q12H PRN PO CONSTIPATION; Start 08/31/16 at 03: 30 Magnesium Hydroxide (Milk Of Mag) 30 ml DAILY PRN PO CONSTIPATION; Start at 03:30 Sodium Biphosphate/ Sodium Phosphate (Fleet Enema) 133 ml DAILY PRN [place] CONSTIPATION; Start 08/31/16 at 03:30 Lorazepam (Ativan) 0.5 mg Q6H PRN IV ANXIETY; Start 08/31/16 at 03:30 Hydralazine HCl (Apresoline) 10 mg Q6H PRN IV ELEVATED BLOOD PRESSURE; Start at 03:30 Nitroglycerin (Nitroglycerin (Sl Tab) 0.4 Mg) 1 tab Q5M PRN SL ANGINA; Start at 03:30 Aspirin (Aspirin) 81 mg DAILY PO Last administered on 09/03/16 09:56; Admin Dose 81 MG; Start 08/31/16 at 09:00 Atorvastatin Calcium (Lipitor) 20 mg HS PO Last administered on 09/02/16 20:44 ; Admin Dose 20 MG; Start 08/31/16 at 21:00 Docusate Sodium (Colace) 100 mg DAILY PO Last administered on 09/03/16 09:55; Admin Dose 100 MG; Start 08/31/16 at 09:00 Gabapentin (Neurontin) 200 mg TID PO Last administered on 09/03/16 09:56; Admin Dose 200 MG; Start 08/31/16 at 09:00 Insulin Glargine (Lantus) 10 unit DAILY@20 SC Last administered on 09/02/16 20 :54; Admin Dose 10 UNIT; Start 08/31/16 at 20:00 Lactobacillus Acidophilus/ Rhamnosus (Culturelle) 1 cap BID PO Last administered on 09/03/16 09:56; Admin Dose 1 CAP; Start 08/31/16 at 09:00 Montelukast Sodium (Singulair) 10 mg HS PO Last administered on 09/02/16 20:44 ; Admin Dose 10 MG; Start 08/31/16 at 21:00 Pantoprazole (Protonix Tab) 40 mg DAILY@06 PO Last administered on 09/03/16 06 :04; Admin Dose 40 MG; Start 08/31/16 at 06:00 Warfarin Sodium (Coumadin) 7.5 mg DAILY@17 PO Last administered on 09/02/16 17 :58; Admin Dose 7.5 MG; Start 08/31/16 at 17:00 Multivitamins Therapeutic (Theragran) 1 tab DAILY PO Last administered on 09:55; Admin Dose 1 TAB; Start 08/31/16 at 09:00 Miscellaneous Information 1 ea NOTE XX ; Start 08/31/16 at 03:30 Glucose (Glutose) 15 gm Q15M PRN PO DECREASED GLUCOSE; Start 08/31/16 at 03:30 Glucose (Glutose) 22.5 gm Q15M PRN PO DECREASED GLUCOSE; Start 08/31/16 at 03: 30 Dextrose (D50w Syringe) 25 ml Q15M PRN IV DECREASED GLUCOSE; Start 08/31/16 at 03:30 Dextrose (D50w Syringe) 50 ml Q15M PRN IV DECREASED GLUCOSE; Start 08/31/16 at 03:30 Glucagon (Glucagen) 1 mg Q15M PRN IM DECREASED GLUCOSE; Start 08/31/16 at 03:30 Glucose (Glutose) 15 gm Q15M PRN BUCCAL DECREASED GLUCOSE; Start 08/31/16 at 03 :30 Sertraline HCl (Zoloft) 100 mg DAILY PO Last administered on 09/03/16 10:00; Admin Dose 100 MG; Start 09/01/16 at 09:59 Metoprolol Tartrate 25 mg 25 mg BID PO Last administered on 09/03/16 09:56; Admin Dose 25 MG; Start 09/01/16 at 21:00 Ferric Sodium Gluconate Complex/ Sodium Chloride (Ferrlecit/NS) 110 ml @ 110 mls/hr Q24H IVPB Last administered on 09/02/16 17:57; Admin Dose 110 MLS/HR; Start 09/01/16 at 17:30; Stop 09/05/16 at 18:29 Diagnostic Test (Pha) (Accucheck) 1 02 XX ; Start 09/02/16 at 02:00 EVA PEACE Sep 03, 2016 10:44
--- NOTE | 2016-09-03 13:10 | CONS ---
Date/Time of Note Date/Time of Note DATE: 09/03/16 TIME: 13:07 Assessment/Plan Assessment/Plan Additional Assessment/Plan 1. Congestive heart failure exacerbation, diastolic, acute on chronic.- improving volume status- con't diuresis. 2. Atrial fibrillation, currently rate controlled on systemic anticoagulation, but is subtherapeutic. Rate well controlled in 70s. 3. Coagulopathy secondary to Coumadin. Con't to Rx to goal. 4. 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 ANTI-coagualted now. 5. Diabetes mellitus. 6. History of cardiac arrest with recent left heart catheterization negative for obstructive disease. No intervention planned currently. 7. Dyslipidemia. 8. Psychiatric disorder. Consultation Date/Type/Reason Admit Date/Time Sep 02, 2016 at 11:57 Initial Consult Date Type of Consultation: Cardiology Referring Provider: KASSANDRA BENITES MD 24 HR Interval Summary Free Text/Dictation No acute events - BP stable - in good fluid status - will RX as needed. ROS: No fever, no chills, no nausea, no vomiting, no diarrhea/constipation No recent weight changes No chest pain, no PND, no orthopnea No dizziness, blurred vision No thirst, no heat or cold intolerance Exam/Review of Systems Vital Signs Vitals Vital Signs Date Time Temp Pulse Resp B/P Pulse Ox O2 Delivery O2 Flow Rate FiO2 09/03/16 12:44 81 09/03/16 12:31 18 Nasal Cannula 2.0 96 09/03/16 12:31 98 09/03/16 11:56 98.4 95/58 Intake and Output 09/02/16 09/02/16 09/03/16 15:00 23:00 07:00 Intake Total 810 ml 900 ml Output Total 1200 ml 1400 ml Balance -390 ml -500 ml Exam General: WN/WD/NAD, AOx 1-2 HEENT: Unicetric/atraumatic/EOMI (follow commands) NECK: JVD elevated, no thyromegaly Lymph: no lymphadenopathy HEART: IRregular with no S3, II/ systolic murmur at apex LUNGS: Coarse sounds ABD: soft, NT, ND, +BS : Intact Neuro: non focal SKIN: chronic changes EXT: trace edema Results Result Diagram: 09/03/16 0500 09/03/16 0500 Results 24 hrs Laboratory Tests Test 09/02/16 14:00 09/02/16 17:26 09/02/16 20:30 09/03/16 05:00 INR International Normalized Ratio 1.74 Prothrombin Time 20.5 H Prothrombin Time Ratio 1.6 Bedside Glucose 144 160 Anion Gap 15 Basophils # 0.0 Basophils % 0.4 Blood Urea Nitrogen 29 H Calcium Level 8.8 Carbon Dioxide Level 34 H Chloride Level 98 Creatinine 1.37 H Eosinophils # 0.2 Eosinophils % 2.8 Glucose Level 121 # Hematocrit 26.7 L Hemoglobin 8.2 L Lymphocytes # 0.6 L Lymphocytes % 10.6 L Mean Corpuscular Hemoglobin 29.5 Mean Corpuscular Hemoglobin Concent 30.7 L Mean Corpuscular Volume 96.0 Mean Platelet Volume 10.5 H Monocytes # 0.6 Monocytes % 11.5 H Neutrophils # 4.0 Neutrophils % 74.5 Nucleated Red Blood Cells # 0.0 Nucleated Red Blood Cells % 0.0 Platelet Count 142 Potassium Level 3.6 Red Blood Count 2.78 L Red Cell Distribution Width 14.6 H Sodium Level 143 White Blood Count 5.4 Test 09/03/16 09:11 09/03/16 11:24 Bedside Glucose 128 181 Medications Medications Current Medications Ondansetron HCl (Zofran Inj) 4 mg Q6H PRN IV NAUSEA AND/OR VOMITING; Start at 03:30 Acetaminophen (Tylenol Tab) 650 mg Q6H PRN PO PAIN LEVEL 1-3 OR FEVER; Start at 03:30 Acetaminophen/ Hydrocodone Bitart ([place] (5/325)) 1 tab Q6H PRN PO MODERATE PAIN LEVEL 4-6; Start 08/31/16 at 03:30 Morphine Sulfate (morphine) 2 mg Q4H PRN IV SEVERE PAIN LEVEL 7-10; Start 08/31 at 03:30 Docusate Sodium (Colace) 100 mg Q12H PRN PO CONSTIPATION; Start 08/31/16 at 03: 30 Magnesium Hydroxide (Milk Of Mag) 30 ml DAILY PRN PO CONSTIPATION; Start at 03:30 Sodium Biphosphate/ Sodium Phosphate (Fleet Enema) 133 ml DAILY PRN [place] CONSTIPATION; Start 08/31/16 at 03:30 Lorazepam (Ativan) 0.5 mg Q6H PRN IV ANXIETY; Start 08/31/16 at 03:30 Hydralazine HCl (Apresoline) 10 mg Q6H PRN IV ELEVATED BLOOD PRESSURE; Start at 03:30 Nitroglycerin (Nitroglycerin (Sl Tab) 0.4 Mg) 1 tab Q5M PRN SL ANGINA; Start at 03:30 Aspirin (Aspirin) 81 mg DAILY PO Last administered on 09/03/16 09:56; Admin Dose 81 MG; Start 08/31/16 at 09:00 Atorvastatin Calcium (Lipitor) 20 mg HS PO Last administered on 09/02/16 20:44 ; Admin Dose 20 MG; Start 08/31/16 at 21:00 Docusate Sodium (Colace) 100 mg DAILY PO Last administered on 09/03/16 09:55; Admin Dose 100 MG; Start 08/31/16 at 09:00 Gabapentin (Neurontin) 200 mg TID PO Last administered on 09/03/16 09:56; Admin Dose 200 MG; Start 08/31/16 at 09:00 Insulin Glargine (Lantus) 10 unit DAILY@20 SC Last administered on 09/02/16 20 :54; Admin Dose 10 UNIT; Start 08/31/16 at 20:00 Lactobacillus Acidophilus/ Rhamnosus (Culturelle) 1 cap BID PO Last administered on 09/03/16 09:56; Admin Dose 1 CAP; Start 08/31/16 at 09:00 Montelukast Sodium (Singulair) 10 mg HS PO Last administered on 09/02/16 20:44 ; Admin Dose 10 MG; Start 08/31/16 at 21:00 Pantoprazole (Protonix Tab) 40 mg DAILY@06 PO Last administered on 09/03/16 06 :04; Admin Dose 40 MG; Start 08/31/16 at 06:00 Warfarin Sodium (Coumadin) 7.5 mg DAILY@17 PO Last administered on 09/02/16 17 :58; Admin Dose 7.5 MG; Start 08/31/16 at 17:00 Multivitamins Therapeutic (Theragran) 1 tab DAILY PO Last administered on 09:55; Admin Dose 1 TAB; Start 08/31/16 at 09:00 Miscellaneous Information 1 ea NOTE XX ; Start 08/31/16 at 03:30 Glucose (Glutose) 15 gm Q15M PRN PO DECREASED GLUCOSE; Start 08/31/16 at 03:30 Glucose (Glutose) 22.5 gm Q15M PRN PO DECREASED GLUCOSE; Start 08/31/16 at 03: 30 Dextrose (D50w Syringe) 25 ml Q15M PRN IV DECREASED GLUCOSE; Start 08/31/16 at 03:30 Dextrose (D50w Syringe) 50 ml Q15M PRN IV DECREASED GLUCOSE; Start 08/31/16 at 03:30 Glucagon (Glucagen) 1 mg Q15M PRN IM DECREASED GLUCOSE; Start 08/31/16 at 03:30 Glucose (Glutose) 15 gm Q15M PRN BUCCAL DECREASED GLUCOSE; Start 08/31/16 at 03 :30 Sertraline HCl (Zoloft) 100 mg DAILY PO Last administered on 09/03/16 10:00; Admin Dose 100 MG; Start 09/01/16 at 09:59 Metoprolol Tartrate 25 mg 25 mg BID PO Last administered on 09/03/16 09:56; Admin Dose 25 MG; Start 09/01/16 at 21:00 Ferric Sodium Gluconate Complex/ Sodium Chloride (Ferrlecit/NS) 110 ml @ 110 mls/hr Q24H IVPB Last administered on 09/02/16 17:57; Admin Dose 110 MLS/HR; Start 09/01/16 at 17:30; Stop 09/05/16 at 18:29 Diagnostic Test (Pha) (Accucheck) 1 ea 02 XX ; Start 09/02/16 at 02:00 BEATA PENA MD Sep 03, 2016 13:10
--- NOTE | 2016-09-03 14:58 | PN ---
Date/Time of Note Date/Time of Note DATE: 09/03/16 TIME: 14:54 Assessment/Plan VTE Prophylaxis VTE Prophylaxis Intervention: other (warfarin) Lines/Catheters IV [facility] Type (from [facility] Saline Lock Urinary Cath still in place: No Assessment/Plan Chief Complaint/Hosp Course Assessment and plan 1. Dyspnea secondary to CHF exacerbation. Continue on diuretic. Glass Wool Blanket Machine Feeder following. Continue optimization with cardiovascular medications. Of note echocardiogram done on July 27, 2016 did show ejection fraction of 65%. good response with current regimen continue 2. History of aortic and mitral valve replacement. Continue on Coumadin medication. Monitor for anemia.stable at present 3. History of recent cardiac arrest. Beta-jaquelin per biofuels production technician. cont with cardiology recs 4. Type 2 diabetes. Continue on insulin regimen. Will adjust as needed. appears stable 5. History of atrial fibrillation. Continue on beta-jaquelin and anticoagulant GERD prophylaxis: Protonix DVT prophylaxis: Coumadin Disposition and plan: Discussed with family, they do not want [facility] transfer at this time. Will try for ARU. family agreeable with plan. Will follow up Discussed plan of care with Dr. Gonzalez Problems: Subjective 24 Hr Interval Summary Free Text/Dictation sitting in chair. no resp distress today Exam/Review of Systems Vital Signs Vitals Vital Signs Date Time Temp Pulse Resp B/P Pulse Ox O2 Delivery O2 Flow Rate FiO2 09/03/16 12:44 81 09/03/16 12:31 18 Nasal Cannula 2.0 96 09/03/16 12:31 98 09/03/16 11:56 98.4 95/58 Intake and Output 09/02/16 09/02/16 09/03/16 15:00 23:00 07:00 Intake Total 810 ml 900 ml Output Total 1200 ml 1400 ml Balance -390 ml -500 ml Exam General: Appears improved at this time. no s/s of distress eyes: pupils equal round, tracks Neck: no JVD Cardiac: Regular rate at this Pulmonary: slight wheezing bilaterally GI: Soft nontender Extremities: Minimal edema bilateral lower extremities plus Skin: cdi Neurologic: torri x4 Results Result Diagram: 09/03/16 0500 09/03/16 0500 Results 24 hrs Laboratory Tests Test 09/02/16 17:26 09/02/16 20:30 09/03/16 05:00 09/03/16 09:11 Bedside Glucose 144 160 128 Anion Gap 15 Basophils # 0.0 Basophils % 0.4 Blood Urea Nitrogen 29 H Calcium Level 8.8 Carbon Dioxide Level 34 H Chloride Level 98 Creatinine 1.37 H Eosinophils # 0.2 Eosinophils % 2.8 Glucose Level 121 # Hematocrit 26.7 L Hemoglobin 8.2 L Lymphocytes # 0.6 L Lymphocytes % 10.6 L Mean Corpuscular Hemoglobin 29.5 Mean Corpuscular Hemoglobin Concent 30.7 L Mean Corpuscular Volume 96.0 Mean Platelet Volume 10.5 H Monocytes # 0.6 Monocytes % 11.5 H Neutrophils # 4.0 Neutrophils % 74.5 Nucleated Red Blood Cells # 0.0 Nucleated Red Blood Cells % 0.0 Platelet Count 142 Potassium Level 3.6 Red Blood Count 2.78 L Red Cell Distribution Width 14.6 H Sodium Level 143 White Blood Count 5.4 Test 09/03/16 11:24 Bedside Glucose 181 Medications Medications Current Medications Ondansetron HCl (Zofran Inj) 4 mg Q6H PRN IV NAUSEA AND/OR VOMITING; Start at 03:30 Acetaminophen (Tylenol Tab) 650 mg Q6H PRN PO PAIN LEVEL 1-3 OR FEVER; Start at 03:30 Acetaminophen/ Hydrocodone Bitart ([place] (5/325)) 1 tab Q6H PRN PO MODERATE PAIN LEVEL 4-6; Start 08/31/16 at 03:30 Morphine Sulfate (morphine) 2 mg Q4H PRN IV SEVERE PAIN LEVEL 7-10; Start 08/31 at 03:30 Docusate Sodium (Colace) 100 mg Q12H PRN PO CONSTIPATION; Start 08/31/16 at 03: 30 Magnesium Hydroxide (Milk Of Mag) 30 ml DAILY PRN PO CONSTIPATION; Start at 03:30 Sodium Biphosphate/ Sodium Phosphate (Fleet Enema) 133 ml DAILY PRN [place] CONSTIPATION; Start 08/31/16 at 03:30 Lorazepam (Ativan) 0.5 mg Q6H PRN IV ANXIETY; Start 08/31/16 at 03:30 Hydralazine HCl (Apresoline) 10 mg Q6H PRN IV ELEVATED BLOOD PRESSURE; Start at 03:30 Nitroglycerin (Nitroglycerin (Sl Tab) 0.4 Mg) 1 tab Q5M PRN SL ANGINA; Start at 03:30 Aspirin (Aspirin) 81 mg DAILY PO Last administered on 09/03/16 09:56; Admin Dose 81 MG; Start 08/31/16 at 09:00 Atorvastatin Calcium (Lipitor) 20 mg HS PO Last administered on 09/02/16 20:44 ; Admin Dose 20 MG; Start 08/31/16 at 21:00 Docusate Sodium (Colace) 100 mg DAILY PO Last administered on 09/03/16 09:55; Admin Dose 100 MG; Start 08/31/16 at 09:00 Gabapentin (Neurontin) 200 mg TID PO Last administered on 09/03/16 13:30; Admin Dose 200 MG; Start 08/31/16 at 09:00 Insulin Glargine (Lantus) 10 unit DAILY@20 SC Last administered on 09/02/16 20 :54; Admin Dose 10 UNIT; Start 08/31/16 at 20:00 Lactobacillus Acidophilus/ Rhamnosus (Culturelle) 1 cap BID PO Last administered on 09/03/16 09:56; Admin Dose 1 CAP; Start 08/31/16 at 09:00 Montelukast Sodium (Singulair) 10 mg HS PO Last administered on 09/02/16 20:44 ; Admin Dose 10 MG; Start 08/31/16 at 21:00 Pantoprazole (Protonix Tab) 40 mg DAILY@06 PO Last administered on 09/03/16 06 :04; Admin Dose 40 MG; Start 08/31/16 at 06:00 Warfarin Sodium (Coumadin) 7.5 mg DAILY@17 PO Last administered on 09/02/16 17 :58; Admin Dose 7.5 MG; Start 08/31/16 at 17:00 Multivitamins Therapeutic (Theragran) 1 tab DAILY PO Last administered on 09:55; Admin Dose 1 TAB; Start 08/31/16 at 09:00 Miscellaneous Information 1 ea NOTE XX ; Start 08/31/16 at 03:30 Glucose (Glutose) 15 gm Q15M PRN PO DECREASED GLUCOSE; Start 08/31/16 at 03:30 Glucose (Glutose) 22.5 gm Q15M PRN PO DECREASED GLUCOSE; Start 08/31/16 at 03: 30 Dextrose (D50w Syringe) 25 ml Q15M PRN IV DECREASED GLUCOSE; Start 08/31/16 at 03:30 Dextrose (D50w Syringe) 50 ml Q15M PRN IV DECREASED GLUCOSE; Start 08/31/16 at 03:30 Glucagon (Glucagen) 1 mg Q15M PRN IM DECREASED GLUCOSE; Start 08/31/16 at 03:30 Glucose (Glutose) 15 gm Q15M PRN BUCCAL DECREASED GLUCOSE; Start 08/31/16 at 03 :30 Sertraline HCl (Zoloft) 100 mg DAILY PO Last administered on 09/03/16 10:00; Admin Dose 100 MG; Start 09/01/16 at 09:59 Metoprolol Tartrate 25 mg 25 mg BID PO Last administered on 09/03/16 09:56; Admin Dose 25 MG; Start 09/01/16 at 21:00 Ferric Sodium Gluconate Complex/ Sodium Chloride (Ferrlecit/NS) 110 ml @ 110 mls/hr Q24H IVPB Last administered on 09/02/16 17:57; Admin Dose 110 MLS/HR; Start 09/01/16 at 17:30; Stop 09/05/16 at 18:29 Diagnostic Test (Pha) (Accucheck) 1 ea 02 XX ; Start 09/02/16 at 02:00 EVA PEACE Sep 03, 2016 14:58
[2016-09-03] MEDS: SOD FERRIC GLUC COMPLX 125 MG in SOD CHLORIDE 0.9% 100 ML IVPB SCH (17:48)
[2016-09-03] MEDS: WARFARIN 7.5 MG TAB PO SCH (18:30)
[2016-09-03] MEDS: INSULIN GLARGINE [LANtus] 3 ML PEN SC SCH (20:12)
[2016-09-03] MEDS: ATORVASTATIN 20 MG TAB PO SCH (21:05)
[2016-09-03] MEDS: MONTELUKAST 10 MG TAB PO SCH (21:06)
[2016-09-04] VITALS (11 sets, daily range): BP systolic 101–129; BP diastolic 63–71; PULSE 69–86; RESP 16–20
[2016-09-04] MEDS: ALBUTEROL HFA 8 GM INHALER INH SCH ×6 (01:00→21:00)
[2016-09-04] MEDS: ALBUTEROL/IPRATROPIUM (NEB) 3 ML AMP HHN SCH ×6 (01:28→20:58)
[2016-09-04] MEDS: ACCUCHECK AT 2AM (Patients on SS coverage) XX SCH (02:00)
[2016-09-04 05:55] LABS: ADD SCAN DIFF NO
[2016-09-04] MEDS: FUROSEMIDE 40 MG INJ IV SCH ×2 (06:00→18:21)
[2016-09-04 06:03] LABS: BASOPHILS % 0.5 % (0.0-2.0); EOSINOPHILS # 0.2 10^3/ul (0.0-0.5); EOSINOPHILS % 2.9 % (0.0-7.0); HEMATOCRIT 26.6 % (42.0-52.0); HEMOGLOBIN 8.3 g/dl (14.0-18.0); LYMPHOCYTES # 0.6 10^3/ul (0.8-2.9); LYMPHOCYTES % 9.7 % (15.0-51.0); MEAN CORPUSCULAR HEMOGLOBIN 29.9 pg (29.0-33.0); MEAN CORPUSCULAR HGB CONC 31.2 g/dl (32.0-37.0); MEAN CORPUSCULAR VOLUME 95.7 fl (82.0-101.0); MEAN PLATELET VOLUME 10.2 fl (7.4-10.4); MONOCYTE # 0.7 10^3/ul (0.3-0.9); MONOCYTES % 10.5 % (0.0-11.0); NEUTROPHILS % 76.1 % (39.0-77.0); PLATELET COUNT 139 10^3/UL (140-415); RED BLOOD COUNT 2.78 10^6/ul (4.70-6.10); RED CELL DISTRIBUTION WIDTH 14.5 % (11.5-14.5); WHITE BLOOD COUNT 6.5 10^3/ul (4.8-10.8)
[2016-09-04 06:14] LABS: INR 2.07; PROTIME 23.5 Sec (12.2-14.2); PT RATIO 1.8
[2016-09-04] MEDS: PANTOPRAZOLE (EC) 40 MG TAB PO SCH (06:17)
[2016-09-04 06:20] LABS: POTASSIUM 3.5 mmol/L (3.5-5.1)
[2016-09-04 06:23] LABS: CALCIUM 8.8 mg/dl (8.4-10.2); CREATININE 1.32 mg/dl (0.61-1.24)
[2016-09-04] MEDS: Insulin NOVOLOG SS MILD Algorithm (SS with meals and bedtime) SC SCH ×4 (07:25→21:00)
[2016-09-04] MEDS: METOPROLOL 25 MG TAB PO SCH ×2 (09:00→21:26)
[2016-09-04] MEDS: ASPIRIN 81 MG TAB PO SCH (09:11)
[2016-09-04] MEDS: DOCUSATE SODIUM 100 MG CAP PO SCH (09:12)
[2016-09-04] MEDS: LACTOBACILLUS RHAMNOSUS CAP PO SCH ×2 (09:12→21:25)
[2016-09-04] MEDS: SERTRALINE 100 MG TAB PO SCH (09:12)
[2016-09-04] MEDS: MULTIVITAMINS THERAPEUTIC TAB PO SCH (09:12)
[2016-09-04] MEDS: GABAPENTIN 100 MG CAP PO SCH ×3 (09:12→21:26)
--- NOTE | 2016-09-04 10:30 | PN ---
Date/Time of Note Date/Time of Note DATE: 09/04/16 TIME: 10:21 Assessment/Plan VTE Prophylaxis VTE Prophylaxis Intervention: other (warfarin) Lines/Catheters IV C[facility] Type (from [facility] Saline Lock Urinary Cath still in place: No Assessment/Plan Chief Complaint/Hosp Course Assessment and plan 1. Dyspnea secondary to CHF exacerbation. Continue on diuretic. 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 Continue optimization with cardiovascular medications. Of note echocardiogram done on July 27, 2016 did show ejection fraction of 65%. good response with current regimen. Check f/u CXR. titrate off o2. 2. History of aortic and mitral valve replacement. Continue on Coumadin medication. Monitor for anemia.stable at present 3. History of recent cardiac arrest. Beta-jaquelin per sdv pilot/navigator/dds operator. cont with cardiology recs 4. Type 2 diabetes. Continue on insulin regimen. Will adjust as needed. appears stable 5. History of atrial fibrillation. Continue on beta-jaquelin and anticoagulant GERD prophylaxis: Protonix DVT prophylaxis: Coumadin Disposition and plan: Discussed with family, they do not want [facility] transfer at this time. Patient not accepted to ARU. Family deciding on snf vs. home with home health. Check f/u CXR. titrate off o2. Follow up with case management Discussed plan of care with Dr. Gonzalez Problems: Subjective 24 Hr Interval Summary Free Text/Dictation still reports having some shortness of breath and coughing Exam/Review of Systems Vital Signs Vitals Vital Signs Date Time Temp Pulse Resp B/P Pulse Ox O2 Delivery O2 Flow Rate FiO2 09/04/16 09:42 Nasal Cannula 2.0 09/04/16 08:25 86 09/04/16 08:17 97.9 20 104/65 97 09/04/16 04:56 27 Intake and Output 09/03/16 09/03/16 09/04/16 15:00 23:00 07:00 Intake Total 900 ml 750 ml Output Total 950 ml 1500 ml Balance -50 ml -750 ml Exam General: no resp distress seen at this time eyes: pupils equal round, anicteric sclerae Neck: no JVD today Cardiac: Regular rate still, seen on monitor Pulmonary: diminished at lung bases GI: Soft nontender Extremities: no edema BLE Skin: cdi Neurologic: torri x4 Results Result Diagram: 09/04/16 0545 09/04/16 0545 Results 24 hrs Laboratory Tests Test 09/03/16 11:24 09/03/16 17:56 09/03/16 20:04 09/04/16 02:35 Bedside Glucose 181 120 192 105 Test 09/04/16 05:45 09/04/16 07:58 Anion Gap 14 Basophils # 0.0 Basophils % 0.5 Blood Urea Nitrogen 33 H Calcium Level 8.8 Carbon Dioxide Level 34 H Chloride Level 97 Creatinine 1.32 H Eosinophils # 0.2 Eosinophils % 2.9 Glucose Level 86 Hematocrit 26.6 L Hemoglobin 8.3 L INR International Normalized Ratio 2.07 Lymphocytes # 0.6 L Lymphocytes % 9.7 L Mean Corpuscular Hemoglobin 29.9 Mean Corpuscular Hemoglobin Concent 31.2 L Mean Corpuscular Volume 95.7 Mean Platelet Volume 10.2 Monocytes # 0.7 Monocytes % 10.5 Neutrophils # 5.0 Neutrophils % 76.1 Nucleated Red Blood Cells # 0.0 Nucleated Red Blood Cells % 0.0 Platelet Count 139 L Potassium Level 3.5 Prothrombin Time 23.5 H Prothrombin Time Ratio 1.8 Red Blood Count 2.78 L Red Cell Distribution Width 14.5 Sodium Level 141 White Blood Count 6.5 # Bedside Glucose 108 Medications Medications Current Medications Ondansetron HCl (Zofran Inj) 4 mg Q6H PRN IV NAUSEA AND/OR VOMITING; Start at 03:30 Acetaminophen (Tylenol Tab) 650 mg Q6H PRN PO PAIN LEVEL 1-3 OR FEVER; Start at 03:30 Acetaminophen/ Hydrocodone Bitart ([place] (5/325)) 1 tab Q6H PRN PO MODERATE PAIN LEVEL 4-6; Start 08/31/16 at 03:30 Morphine Sulfate (morphine) 2 mg Q4H PRN IV SEVERE PAIN LEVEL 7-10; Start 08/31 at 03:30 Docusate Sodium (Colace) 100 mg Q12H PRN PO CONSTIPATION; Start 08/31/16 at 03: 30 Magnesium Hydroxide (Milk Of Mag) 30 ml DAILY PRN PO CONSTIPATION; Start at 03:30 Sodium Biphosphate/ Sodium Phosphate (Fleet Enema) 133 ml DAILY PRN [place] CONSTIPATION; Start 08/31/16 at 03:30 Lorazepam (Ativan) 0.5 mg Q6H PRN IV ANXIETY; Start 08/31/16 at 03:30 Hydralazine HCl (Apresoline) 10 mg Q6H PRN IV ELEVATED BLOOD PRESSURE; Start at 03:30 Nitroglycerin (Nitroglycerin (Sl Tab) 0.4 Mg) 1 tab Q5M PRN SL ANGINA; Start at 03:30 Aspirin (Aspirin) 81 mg DAILY PO Last administered on 09/04/16 09:11; Admin Dose 81 MG; Start 08/31/16 at 09:00 Atorvastatin Calcium (Lipitor) 20 mg HS PO Last administered on 09/03/16 21:05 ; Admin Dose 20 MG; Start 08/31/16 at 21:00 Docusate Sodium (Colace) 100 mg DAILY PO Last administered on 09/04/16 09:12; Admin Dose 100 MG; Start 08/31/16 at 09:00 Gabapentin (Neurontin) 200 mg TID PO Last administered on 09/04/16 09:12; Admin Dose 200 MG; Start 08/31/16 at 09:00 Insulin Glargine (Lantus) 10 unit DAILY@20 SC Last administered on 09/03/16 20 :12; Admin Dose 10 UNIT; Start 08/31/16 at 20:00 Lactobacillus Acidophilus/ Rhamnosus (Culturelle) 1 cap BID PO Last administered on 09/04/16 09:12; Admin Dose 1 CAP; Start 08/31/16 at 09:00 Montelukast Sodium (Singulair) 10 mg HS PO Last administered on 09/03/16 21:06 ; Admin Dose 10 MG; Start 08/31/16 at 21:00 Pantoprazole (Protonix Tab) 40 mg DAILY@06 PO Last administered on 09/04/16 06 :17; Admin Dose 40 MG; Start 08/31/16 at 06:00 Warfarin Sodium (Coumadin) 7.5 mg DAILY@17 PO Last administered on 09/03/16 18 :30; Admin Dose 7.5 MG; Start 08/31/16 at 17:00 Multivitamins Therapeutic (Theragran) 1 tab DAILY PO Last administered on 09:12; Admin Dose 1 TAB; Start 08/31/16 at 09:00 Miscellaneous Information 1 ea NOTE XX ; Start 08/31/16 at 03:30 Glucose (Glutose) 15 gm Q15M PRN PO DECREASED GLUCOSE; Start 08/31/16 at 03:30 Glucose (Glutose) 22.5 gm Q15M PRN PO DECREASED GLUCOSE; Start 08/31/16 at 03: 30 Dextrose (D50w Syringe) 25 ml Q15M PRN IV DECREASED GLUCOSE; Start 08/31/16 at 03:30 Dextrose (D50w Syringe) 50 ml Q15M PRN IV DECREASED GLUCOSE; Start 08/31/16 at 03:30 Glucagon (Glucagen) 1 mg Q15M PRN IM DECREASED GLUCOSE; Start 08/31/16 at 03:30 Glucose (Glutose) 15 gm Q15M PRN BUCCAL DECREASED GLUCOSE; Start 08/31/16 at 03 :30 Sertraline HCl (Zoloft) 100 mg DAILY PO Last administered on 09/04/16 09:12; Admin Dose 100 MG; Start 09/01/16 at 09:59 Metoprolol Tartrate 25 mg 25 mg BID PO Last administered on 09/03/16 09:56; Admin Dose 25 MG; Start 09/01/16 at 21:00 Ferric Sodium Gluconate Complex/ Sodium Chloride (Ferrlecit/NS) 110 ml @ 110 mls/hr Q24H IVPB Last administered on 09/03/16 17:48; Admin Dose 110 MLS/HR; Start 09/01/16 at 17:30; Stop 09/05/16 at 18:29 Diagnostic Test (Pha) (Accucheck) 1 ea 02 XX ; Start 09/02/16 at 02:00 EVA PEACE Sep 04, 2016 10:29
--- NOTE | 2016-09-04 12:16 | RADRPT ---
PROCEDURE: XR Chest. CLINICAL INDICATION: 78-year-old male with shortness of breath and congestive heart failure. TECHNIQUE: Single frontal view of the chest was obtained COMPARISON: Chest x-ray 08/31/2016 12:22 a.m. FINDINGS: The soft tissues are normal. A mediastinotomy was performed. There are degenerative osteophytes in the thoracic spine. The the heart is enlarged. The cardiomediastinal silhouette, pulmonary vascul ature and hilar structures are normal. There is a less aorta. There is plate-like atelectasis along the left heart border. There is a poor inspiration. The right pleural effusion decreased. The cos tophrenic angles are normal. IMPRESSION: 1. Cardiomegaly. 2. Status post median sternotomy with evidence of heart valve replacement. 3. Subsegmental atelectasis in the left lower lobe. 4. Suboptimal is periphery with compressive atelectasis in the bases of the lungs. 5. Interval improvement of the pulmonary vascular congestion identified on 08/31/2016. RPTAT:AAJJ Physician Jolene Date Time Electronically viewed and signed by Physician Jolene on 09/04/2016 12:16 MICHELLE/
--- NOTE | 2016-09-04 18:06 | CONS ---
Date/Time of Note Date/Time of Note DATE: 09/04/16 TIME: 18:03 Assessment/Plan Assessment/Plan Additional Assessment/Plan 1. Congestive heart failure exacerbation, diastolic, acute on chronic - improving volume status - con't diuresis. BETTER fluid satus now. 2. Atrial fibrillation, currently rate controlled on systemic anticoagulation, but is subtherapeutic. Rate variable 70s to low 100s. 3. Coagulopathy secondary to Coumadin. Con't to Rx to goal. STABLE. 4. 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 ANTI-coagualted now. 5. Diabetes mellitus- on meds, keep euglycemic. 6. History of cardiac arrest with recent left heart catheterization negative for obstructive disease. No intervention planned currently. 7. Dyslipidemia. 8. Psychiatric disorder. Consultation Date/Type/Reason Admit Date/Time Sep 02, 2016 at 11:57 Type of Consultation: Cardiology Referring Provider: KASSANDRA BENITES MD 24 HR Interval Summary Free Text/Dictation NO acute change - still in a. fib - rate reasonably controlled - will monitor closely. ROS: No fever, no chills, no nausea, no vomiting, no diarrhea/constipation No recent weight changes No chest pain, no PND, no orthopnea No dizziness, blurred vision No thirst, no heat or cold intolerance (feels tired) Exam/Review of Systems Vital Signs Vitals Vital Signs Date Time Temp Pulse Resp B/P Pulse Ox O2 Delivery O2 Flow Rate FiO2 09/04/16 16:57 87 20 96 2.0 09/04/16 16:31 98.5 117/71 09/04/16 09:42 Nasal Cannula 09/04/16 04:56 27 Intake and Output 09/03/16 09/03/16 09/04/16 15:00 23:00 07:00 Intake Total 900 ml 750 ml Output Total 950 ml 1500 ml Balance -50 ml -750 ml Exam General: WN/WD/NAD, AOx 3 HEENT: Unicetric/atraumatic/EOMI (follow commands) NECK: JVD elevated, no thyromegaly Lymph: no lymphadenopathy HEART: IR IRRregular with no S3, II/ systolic murmur at apex LUNGS: Coarse sounds ABD: soft, NT, ND, +BS : Intact Neuro: non focal SKIN: chronic changes EXT: trace edema Results Result Diagram: 3/19/17 0545 09/04/16 0545 Results 24 hrs Laboratory Tests Test 09/03/16 20:04 09/04/16 02:35 09/04/16 05:45 09/04/16 07:58 Bedside Glucose 192 105 108 Anion Gap 14 Basophils # 0.0 Basophils % 0.5 Blood Urea Nitrogen 33 H Calcium Level 8.8 Carbon Dioxide Level 34 H Chloride Level 97 Creatinine 1.32 H Eosinophils # 0.2 Eosinophils % 2.9 Glucose Level 86 Hematocrit 26.6 L Hemoglobin 8.3 L INR International Normalized Ratio 2.07 Lymphocytes # 0.6 L Lymphocytes % 9.7 L Mean Corpuscular Hemoglobin 29.9 Mean Corpuscular Hemoglobin Concent 31.2 L Mean Corpuscular Volume 95.7 Mean Platelet Volume 10.2 Monocytes # 0.7 Monocytes % 10.5 Neutrophils # 5.0 Neutrophils % 76.1 Nucleated Red Blood Cells # 0.0 Nucleated Red Blood Cells % 0.0 Platelet Count 139 L Potassium Level 3.5 Prothrombin Time 23.5 H Prothrombin Time Ratio 1.8 Red Blood Count 2.78 L Red Cell Distribution Width 14.5 Sodium Level 141 White Blood Count 6.5 # Test 09/04/16 11:27 09/04/16 17:15 Bedside Glucose 218 205 Medications Medications Current Medications Ondansetron HCl (Zofran Inj) 4 mg Q6H PRN IV NAUSEA AND/OR VOMITING; Start at 03:30 Acetaminophen (Tylenol Tab) 650 mg Q6H PRN PO PAIN LEVEL 1-3 OR FEVER; Start at 03:30 Acetaminophen/ Hydrocodone Bitart ([place] (5/325)) 1 tab Q6H PRN PO MODERATE PAIN LEVEL 4-6; Start 08/31/16 at 03:30 Morphine Sulfate (morphine) 2 mg Q4H PRN IV SEVERE PAIN LEVEL 7-10; Start 08/31 at 03:30 Docusate Sodium (Colace) 100 mg Q12H PRN PO CONSTIPATION; Start 08/31/16 at 03: 30 Magnesium Hydroxide (Milk Of Mag) 30 ml DAILY PRN PO CONSTIPATION; Start at 03:30 Sodium Biphosphate/ Sodium Phosphate (Fleet Enema) 133 ml DAILY PRN [place] CONSTIPATION; Start 08/31/16 at 03:30 Lorazepam (Ativan) 0.5 mg Q6H PRN IV ANXIETY; Start 08/31/16 at 03:30 Hydralazine HCl (Apresoline) 10 mg Q6H PRN IV ELEVATED BLOOD PRESSURE; Start at 03:30 Nitroglycerin (Nitroglycerin (Sl Tab) 0.4 Mg) 1 tab Q5M PRN SL ANGINA; Start at 03:30 Aspirin (Aspirin) 81 mg DAILY PO Last administered on 09/04/16 09:11; Admin Dose 81 MG; Start 08/31/16 at 09:00 Atorvastatin Calcium (Lipitor) 20 mg HS PO Last administered on 09/03/16 21:05 ; Admin Dose 20 MG; Start 08/31/16 at 21:00 Docusate Sodium (Colace) 100 mg DAILY PO Last administered on 09/04/16 09:12; Admin Dose 100 MG; Start 08/31/16 at 09:00 Gabapentin (Neurontin) 200 mg TID PO Last administered on 09/04/16 13:06; Admin Dose 200 MG; Start 08/31/16 at 09:00 Insulin Glargine (Lantus) 10 unit DAILY@20 SC Last administered on 09/03/16 20 :12; Admin Dose 10 UNIT; Start 08/31/16 at 20:00 Lactobacillus Acidophilus/ Rhamnosus (Culturelle) 1 cap BID PO Last administered on 09/04/16 09:12; Admin Dose 1 CAP; Start 08/31/16 at 09:00 Montelukast Sodium (Singulair) 10 mg HS PO Last administered on 09/03/16 21:06 ; Admin Dose 10 MG; Start 08/31/16 at 21:00 Pantoprazole (Protonix Tab) 40 mg DAILY@06 PO Last administered on 09/04/16 06 :17; Admin Dose 40 MG; Start 08/31/16 at 06:00 Warfarin Sodium (Coumadin) 7.5 mg DAILY@17 PO Last administered on 09/03/16 18 :30; Admin Dose 7.5 MG; Start 08/31/16 at 17:00 Multivitamins Therapeutic (Theragran) 1 tab DAILY PO Last administered on 09:12; Admin Dose 1 TAB; Start 08/31/16 at 09:00 Miscellaneous Information 1 ea NOTE XX ; Start 08/31/16 at 03:30 Glucose (Glutose) 15 gm Q15M PRN PO DECREASED GLUCOSE; Start 08/31/16 at 03:30 Glucose (Glutose) 22.5 gm Q15M PRN PO DECREASED GLUCOSE; Start 08/31/16 at 03: 30 Dextrose (D50w Syringe) 25 ml Q15M PRN IV DECREASED GLUCOSE; Start 08/31/16 at 03:30 Dextrose (D50w Syringe) 50 ml Q15M PRN IV DECREASED GLUCOSE; Start 08/31/16 at 03:30 Glucagon (Glucagen) 1 mg Q15M PRN IM DECREASED GLUCOSE; Start 08/31/16 at 03:30 Glucose (Glutose) 15 gm Q15M PRN BUCCAL DECREASED GLUCOSE; Start 08/31/16 at 03 :30 Sertraline HCl (Zoloft) 100 mg DAILY PO Last administered on 09/04/16 09:12; Admin Dose 100 MG; Start 09/01/16 at 09:59 Metoprolol Tartrate 25 mg 25 mg BID PO Last administered on 09/03/16 09:56; Admin Dose 25 MG; Start 09/01/16 at 21:00 Ferric Sodium Gluconate Complex/ Sodium Chloride (Ferrlecit/NS) 110 ml @ 110 mls/hr Q24H IVPB Last administered on 09/03/16 17:48; Admin Dose 110 MLS/HR; Start 09/01/16 at 17:30; Stop 09/05/16 at 18:29 Diagnostic Test (Pha) (Accucheck) 1 ea 02 XX ; Start 09/02/16 at 02:00 BEATA PENA MD Sep 04, 2016 18:06
[2016-09-04] MEDS: WARFARIN 7.5 MG TAB PO SCH (18:17)
[2016-09-04] MEDS: SOD FERRIC GLUC COMPLX 125 MG in SOD CHLORIDE 0.9% 100 ML IVPB SCH (18:18)
[2016-09-04] MEDS: INSULIN GLARGINE [LANtus] 3 ML PEN SC SCH (20:06)
[2016-09-04] MEDS: ATORVASTATIN 20 MG TAB PO SCH (21:25)
[2016-09-04] MEDS: MONTELUKAST 10 MG TAB PO SCH (21:26)
[2016-09-05] VITALS (12 sets, daily range): BP systolic 99–124; BP diastolic 54–68; PULSE 66–84; RESP 16–20
[2016-09-05] MEDS: ALBUTEROL HFA 8 GM INHALER INH SCH ×2 (00:45→05:00)
[2016-09-05] MEDS: ALBUTEROL/IPRATROPIUM (NEB) 3 ML AMP HHN SCH ×6 (01:07→20:18)
[2016-09-05] MEDS: ACCUCHECK AT 2AM (Patients on SS coverage) XX SCH (02:00)
[2016-09-05] MEDS: FUROSEMIDE 40 MG INJ IV SCH (06:23)
[2016-09-05] MEDS: PANTOPRAZOLE (EC) 40 MG TAB PO SCH (06:23)
[2016-09-05] MEDS: METOPROLOL 25 MG TAB PO SCH ×2 (09:00→21:00)
[2016-09-05] MEDS: MULTIVITAMINS THERAPEUTIC TAB PO SCH (09:36)
[2016-09-05] MEDS: DOCUSATE SODIUM 100 MG CAP PO SCH (09:36)
[2016-09-05] MEDS: LACTOBACILLUS RHAMNOSUS CAP PO SCH ×2 (09:36→21:11)
[2016-09-05] MEDS: GABAPENTIN 100 MG CAP PO SCH ×3 (09:36→21:11)
[2016-09-05] MEDS: ASPIRIN 81 MG TAB PO SCH (09:37)
[2016-09-05] MEDS: SERTRALINE 100 MG TAB PO SCH (09:37)
[2016-09-05] MEDS: Insulin NOVOLOG SS MILD Algorithm (SS with meals and bedtime) SC SCH ×4 (09:44→21:00)
--- NOTE | 2016-09-05 11:59 | CONS ---
Date/Time of Note Date/Time of Note DATE: 09/05/16 TIME: 11:56 Assessment/Plan Assessment/Plan Chief Complaint/Hosp Course IMPRESSION: 1. Congestive heart failure exacerbation, diastolic, acute on chronic.- improving volume status 2. Atrial fibrillation, currently rate controlled on systemic anticoagulation, but is subtherapeutic. 3. Coagulopathy secondary to Coumadin. 4. 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 5. Diabetes mellitus. 6. History of cardiac arrest with recent left heart catheterization negative for obstructive disease. 7. Dyslipidemia. 8. Psychiatric disorder. Recc: -Tele -continue lasix diuresis but will decrease to daily -Continue asa and BB as tolerated only -Coumadin loading and follow INR closely -Continue statin therapy -Possible transfer to [facility] Problems: Consultation Date/Type/Reason Admit Date/Time Sep 02, 2016 at 11:57 Initial Consult Date 08/31/16 Type of Consultation: Cardiology Reason for Consultation CHF Referring Provider: KASSANDRA BENITES MD Exam/Review of Systems Vital Signs Vitals Vital Signs Date Time Temp Pulse Resp B/P Pulse Ox O2 Delivery O2 Flow Rate FiO2 09/05/16 11:40 98.0 69 20 99/68 100 09/05/16 09:49 Nasal Cannula 2.0 09/04/16 04:56 27 Intake and Output 09/04/16 09/04/16 09/05/16 15:00 23:00 07:00 Intake Total 960 ml 850 ml Output Total 1200 ml 1450 ml Balance -240 ml -600 ml Exam Review of Systems: CONSTITUTIONAL: No fevers, chills. PULMONARY: mild sob CARDIOVASCULAR: No chest pain/palpitations GASTROINTESTINAL: No nausea/vomiting. GENITOURINARY: No hematuria/dysuria. MUSCULOSKELETAL: No myagias/arthalgias. PSYCHIATRIC: The patient denies depression. NEUROLOGIC: No weakness Constitutional: alert Psych: no complaints Head: normocephalic ENMT: mucosa pink and moist Neck: jvd (8 cm water), supple Respiratory: diminished breath sounds Cardiovascular: regular rate and rhythm Gastrointestinal: non-tender, soft Musculoskeletal: muscle tone (normal) Extremities: edema (none) 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: other (No focal deficits) Results Result Diagram: 09/04/16 0545 09/04/16 0545 Results 24 hrs Laboratory Tests Test 09/04/16 17:15 09/04/16 19:57 09/05/16 07:44 09/05/16 11:22 Bedside Glucose 205 162 142 127 Medications Medications Current Medications Ondansetron HCl (Zofran Inj) 4 mg Q6H PRN IV NAUSEA AND/OR VOMITING; Start at 03:30 Acetaminophen (Tylenol Tab) 650 mg Q6H PRN PO PAIN LEVEL 1-3 OR FEVER Last administered on 09/04/16 21:27; Admin Dose 650 MG; Start 08/31/16 at 03:30 Acetaminophen/ Hydrocodone Bitart ([place] (5/325)) 1 tab Q6H PRN PO MODERATE PAIN LEVEL 4-6; Start 08/31/16 at 03:30 Morphine Sulfate (morphine) 2 mg Q4H PRN IV SEVERE PAIN LEVEL 7-10; Start 08/31 at 03:30 Docusate Sodium (Colace) 100 mg Q12H PRN PO CONSTIPATION; Start 08/31/16 at 03: 30 Magnesium Hydroxide (Milk Of Mag) 30 ml DAILY PRN PO CONSTIPATION; Start at 03:30 Sodium Biphosphate/ Sodium Phosphate (Fleet Enema) 133 ml DAILY PRN [place] CONSTIPATION; Start 08/31/16 at 03:30 Lorazepam (Ativan) 0.5 mg Q6H PRN IV ANXIETY; Start 08/31/16 at 03:30 Hydralazine HCl (Apresoline) 10 mg Q6H PRN IV ELEVATED BLOOD PRESSURE; Start at 03:30 Nitroglycerin (Nitroglycerin (Sl Tab) 0.4 Mg) 1 tab Q5M PRN SL ANGINA; Start at 03:30 Aspirin (Aspirin) 81 mg DAILY PO Last administered on 09/05/16 09:37; Admin Dose 81 MG; Start 08/31/16 at 09:00 Atorvastatin Calcium (Lipitor) 20 mg HS PO Last administered on 09/04/16 21:25 ; Admin Dose 20 MG; Start 08/31/16 at 21:00 Docusate Sodium (Colace) 100 mg DAILY PO Last administered on 09/05/16 09:36; Admin Dose 100 MG; Start 08/31/16 at 09:00 Gabapentin (Neurontin) 200 mg TID PO Last administered on 09/05/16 09:36; Admin Dose 200 MG; Start 08/31/16 at 09:00 Insulin Glargine (Lantus) 10 unit DAILY@20 SC Last administered on 09/04/16 20 :06; Admin Dose 10 UNIT; Start 08/31/16 at 20:00 Lactobacillus Acidophilus/ Rhamnosus (Culturelle) 1 cap BID PO Last administered on 09/05/16 09:36; Admin Dose 1 CAP; Start 08/31/16 at 09:00 Montelukast Sodium (Singulair) 10 mg HS PO Last administered on 09/04/16 21:26 ; Admin Dose 10 MG; Start 08/31/16 at 21:00 Pantoprazole (Protonix Tab) 40 mg DAILY@06 PO Last administered on 09/05/16 06 :23; Admin Dose 40 MG; Start 08/31/16 at 06:00 Warfarin Sodium (Coumadin) 7.5 mg DAILY@17 PO Last administered on 09/04/16 18 :17; Admin Dose 7.5 MG; Start 08/31/16 at 17:00 Multivitamins Therapeutic (Theragran) 1 tab DAILY PO Last administered on 09:36; Admin Dose 1 TAB; Start 08/31/16 at 09:00 Miscellaneous Information 1 ea NOTE XX ; Start 08/31/16 at 03:30 Glucose (Glutose) 15 gm Q15M PRN PO DECREASED GLUCOSE; Start 08/31/16 at 03:30 Glucose (Glutose) 22.5 gm Q15M PRN PO DECREASED GLUCOSE; Start 08/31/16 at 03: 30 Dextrose (D50w Syringe) 25 ml Q15M PRN IV DECREASED GLUCOSE; Start 08/31/16 at 03:30 Dextrose (D50w Syringe) 50 ml Q15M PRN IV DECREASED GLUCOSE; Start 08/31/16 at 03:30 Glucagon (Glucagen) 1 mg Q15M PRN IM DECREASED GLUCOSE; Start 08/31/16 at 03:30 Glucose (Glutose) 15 gm Q15M PRN BUCCAL DECREASED GLUCOSE; Start 08/31/16 at 03 :30 Sertraline HCl (Zoloft) 100 mg DAILY PO Last administered on 09/05/16 09:37; Admin Dose 100 MG; Start 09/01/16 at 09:59 Metoprolol Tartrate 25 mg 25 mg BID PO Last administered on 09/04/16 21:26; Admin Dose 25 MG; Start 09/01/16 at 21:00 Ferric Sodium Gluconate Complex/ Sodium Chloride (Ferrlecit/NS) 110 ml @ 110 mls/hr Q24H IVPB Last administered on 09/04/16 18:18; Admin Dose 110 MLS/HR; Start 09/01/16 at 17:30; Stop 09/05/16 at 18:29 Diagnostic Test (Pha) (Accucheck) 1 02 XX ; Start 09/02/16 at 02:00 ESTEFANI BORREGO Sep 05, 2016 11:58
[2016-09-05 12:09] LABS: ADD SCAN DIFF NO
[2016-09-05 12:15] LABS: ABNORMAL IP MESSAGE 1; BASOPHILS % 0.4 % (0.0-2.0); EOSINOPHILS # 0.2 10^3/ul (0.0-0.5); EOSINOPHILS % 3.1 % (0.0-7.0); HEMATOCRIT 27.7 % (42.0-52.0); HEMOGLOBIN 8.7 g/dl (14.0-18.0); LYMPHOCYTES # 0.5 10^3/ul (0.8-2.9); LYMPHOCYTES % 6.9 % (15.0-51.0); MEAN CORPUSCULAR HEMOGLOBIN 30.4 pg (29.0-33.0); MEAN CORPUSCULAR HGB CONC 31.4 g/dl (32.0-37.0); MEAN CORPUSCULAR VOLUME 96.9 fl (82.0-101.0); MEAN PLATELET VOLUME 10.2 fl (7.4-10.4); MONOCYTE # 0.7 10^3/ul (0.3-0.9); MONOCYTES % 9.9 % (0.0-11.0); NEUTROPHIL # 5.9 10^3/ul (1.6-7.5); NEUTROPHILS % 79.4 % (39.0-77.0); PLATELET COUNT 143 10^3/UL (140-415); RED BLOOD COUNT 2.86 10^6/ul (4.70-6.10); RED CELL DISTRIBUTION WIDTH 14.6 % (11.5-14.5); WHITE BLOOD COUNT 7.4 10^3/ul (4.8-10.8)
--- NOTE | 2016-09-05 12:17 | PN ---
DATE: 09/05/2016 TIME OF EVALUATION: 11:00 a.m. SUBJECTIVE DATA: Complains of palpitations and dyspnea with minimal exertion. Denies any chest pain. OBJECTIVE DATA: VITAL SIGNS: Temperature 98.6, pulse rate 92, respiratory rate 20, blood pressure 102/59, oxygen saturation 95% on room air. GENERAL: This is a frail-looking male lying in bed in mild respiratory distress. HEENT: Head normocephalic and atraumatic. Eyes: Anicteric sclerae. Conjunctivae clear. ENT: Nasal septum is midline. Oral mucosa is dry. NECK: Supple. No JVD noticed. RESPIRATORY: Bilateral diminished breath sounds. A few fine rales heard at the bases. CARDIAC: Irregularly irregular rhythm with a grade II/ systolic ejection murmur. ABDOMEN: Soft, nontender and nondistended. Bowel sounds positive in all 4 quadrants. GENITOURINARY: Deferred. EXTREMITIES: No cyanosis, no clubbing. Trace pedal edema. Peripheral pulses palpable. NEUROLOGIC: The patient is awake, alert and oriented. Cranial nerves are grossly intact. LABORATORY AND DIAGNOSTIC DATA: WBC 6.5, hemoglobin 8.3, hematocrit 26.6, platelet count 139. ASSESSMENT AND PLAN: 1. Acute hypoxic respiratory failure, most probably secondary to diastolic heart failure. Continue inhaled bronchodilators. Continue IV Lasix. Cardiology following the patient. 2. Atrial fibrillation. Rate is controlled. Continue anticoagulation for stroke prophylaxis. 3. Essential hypertension. Continue antihypertensives. Blood pressure well controlled. 4. History of recent cardiac arrest. Continue beta blockers. Continue Cardiology recommendations. 5. Status post aortic and mitral valve replacements. Continue Coumadin. 6. Type 2 diabetes mellitus. Hemoglobin A1c 8.5. Continue sliding scale insulin along with her Lantus insulin. Blood sugars fairly well controlled. 7. Normocytic normochromic anemia. Probably anemia of chronic disease. Continue iron supplements. 8. Dyslipidemia. Continue statins. 9. Depression. Continue antidepressants. 10. Fluid, electrolytes and nutrition. Carbohydrate controlled diet. 11. Deep venous thrombosis prophylaxis, already on Coumadin. 12. Gastrointestinal prophylaxis. Proton pump inhibitors. 13. Plan. The patient needs [facility] facility [facility] versus home with home health. The patient is a high fall risk, as per physical therapy notes. Case management aware. Case discussed with Dr. Benites. REBECCA BENITES MD AM/NTS Conf#: [id number] DID#: [id number] MTD[place]ica
[2016-09-05 12:30] LABS: POTASSIUM 3.9 mmol/L (3.5-5.1)
[2016-09-05 12:33] LABS: CREATININE 1.07 mg/dl (0.61-1.24)
[2016-09-05 12:33] LABS: AADO2 Arterial 24.3 mmHg (7.0-24.0); Allen Test ACCEPTAB; Arterial Base Excess 8.8 mmol/L (-3.0-3); Arterial COHb 0.3 % (0.0-3.0); Arterial Fraction of Oxyhgb 90.1 % (93.0-99.0); Arterial HCO3 34.7 mmol/L (22.0-26.0); Arterial MetHb 0.3 % (0.0-1.5); Arterial Total Hemglobin 10.8 g/dl (12.0-18.0); MODE ROOM AIR
[2016-09-05 12:34] LABS: CALCIUM 8.9 mg/dl (8.4-10.2)
[2016-09-05] MEDS: SOD FERRIC GLUC COMPLX 125 MG in SOD CHLORIDE 0.9% 100 ML IVPB SCH (17:31)
[2016-09-05] MEDS: WARFARIN 7.5 MG TAB PO SCH (17:31)
[2016-09-05] MEDS: ATORVASTATIN 20 MG TAB PO SCH (21:11)
[2016-09-05] MEDS: MONTELUKAST 10 MG TAB PO SCH (21:11)
[2016-09-05] MEDS: INSULIN GLARGINE [LANtus] 3 ML PEN SC SCH (21:22)
[2016-09-06] VITALS (9 sets, daily range): BP systolic 108–145; BP diastolic 64–69; PULSE 80–96; RESP 17–20
[2016-09-06] MEDS: ALBUTEROL/IPRATROPIUM (NEB) 3 ML AMP HHN SCH ×5 (01:09→17:15)
[2016-09-06] MEDS: ACCUCHECK AT 2AM (Patients on SS coverage) XX SCH (02:00)
[2016-09-06] MEDS: PANTOPRAZOLE (EC) 40 MG TAB PO SCH (06:12)
[2016-09-06] MEDS: Insulin NOVOLOG SS MILD Algorithm (SS with meals and bedtime) SC SCH ×3 (07:25→17:25)
[2016-09-06 07:32] LABS: ADD SCAN DIFF NO
[2016-09-06 07:50] LABS: ABNORMAL IP MESSAGE 1; BASOPHILS % 0.5 % (0.0-2.0); EOSINOPHILS # 0.2 10^3/ul (0.0-0.5); EOSINOPHILS % 3.6 % (0.0-7.0); HEMATOCRIT 26.9 % (42.0-52.0); HEMOGLOBIN 8.5 g/dl (14.0-18.0); LYMPHOCYTES # 0.6 10^3/ul (0.8-2.9); LYMPHOCYTES % 9.4 % (15.0-51.0); MEAN CORPUSCULAR HEMOGLOBIN 30.7 pg (29.0-33.0); MEAN CORPUSCULAR HGB CONC 31.6 g/dl (32.0-37.0); MEAN CORPUSCULAR VOLUME 97.1 fl (82.0-101.0); MEAN PLATELET VOLUME 10.1 fl (7.4-10.4); MONOCYTE # 0.6 10^3/ul (0.3-0.9); MONOCYTES % 9.4 % (0.0-11.0); NEUTROPHIL # 4.5 10^3/ul (1.6-7.5); NEUTROPHILS % 76.8 % (39.0-77.0); PLATELET COUNT 129 10^3/UL (140-415); RED BLOOD COUNT 2.77 10^6/ul (4.70-6.10); RED CELL DISTRIBUTION WIDTH 14.8 % (11.5-14.5); WHITE BLOOD COUNT 5.9 10^3/ul (4.8-10.8)
[2016-09-06 07:51] LABS: POTASSIUM 3.7 mmol/L (3.5-5.1)
[2016-09-06 07:54] LABS: CREATININE 0.99 mg/dl (0.61-1.24)
[2016-09-06 07:55] LABS: CALCIUM 9.2 mg/dl (8.4-10.2)
[2016-09-06 08:30] LABS: INR 2.09; PROTIME 23.7 Sec (12.2-14.2); PT RATIO 1.9
[2016-09-06] MEDS: GABAPENTIN 100 MG CAP PO SCH ×2 (09:00→12:19)
[2016-09-06] MEDS: METOPROLOL 25 MG TAB PO SCH (09:00)
[2016-09-06] MEDS: ASPIRIN 81 MG TAB PO SCH (09:00)
[2016-09-06] MEDS: LACTOBACILLUS RHAMNOSUS CAP PO SCH (09:00)
[2016-09-06] MEDS: SERTRALINE 100 MG TAB PO SCH (09:00)
[2016-09-06] MEDS: DOCUSATE SODIUM 100 MG CAP PO SCH (09:00)
[2016-09-06] MEDS: MULTIVITAMINS THERAPEUTIC TAB PO SCH (09:00)
[2016-09-06] MEDS ORDERED: FUROSEMIDE 40 MG INJ IV SCH (09:00)
[2016-09-06] MEDS ORDERED: FURO-109 PO (15:17)
[2016-09-06] MEDS: WARFARIN 7.5 MG TAB PO SCH (17:30)
--- NOTE | 2016-09-06 18:05 | RADRPT ---
Vent Rate: 77 bpm RR Interval: 0 msec UT Interval: 0 msec QRS Duration: 82 msec QT Interval: 370 msec QTC Interval: 418 msec P-R-T [place]: 0 - 84 - 57 degrees Atrial fibrillation Abnormal ECG Electronically Signed By: Juan Carlos Brown [id number]
--- NOTE | 2016-09-06 18:08 | DS ---
DATE OF ADMISSION: 09/02/2016 DATE OF DISCHARGE: 09/06/2016 FINAL DIAGNOSES: 1. Acute hypoxic and hypercapnic respiratory failure. 2. Atrial fibrillation. Rate controlled. 3. Essential hypertension. 4. History of recent cardiac arrest. 5. Status post aortic and mitral valve replacements. 6. Type 2 diabetes mellitus. 7. Normocytic normochromic anemia. 8. Dyslipidemia. 9. Depression. 10. Debility. 11. Chronic obstructive pulmonary disease. 12. Coronary artery disease. CONSULTANTS: 1. Dr. Mesfin Ramirez, cardiology. 2. Dr. Mark Anthony Whalen, cardiology. HOSPITAL COURSE: This is a 75-year-old male with past medical history of COPD, diastolic heart failure, recent cardiac arrest, coronary artery disease, atrial fibrillation, and type 2 diabetes mellitus, who presented to the emergency room with chief complaint of dyspnea as well as mild chest pain. Provided the patient's history of present illness and his comorbidities, a clinical decision was made to admit the patient to inpatient setting to have him further evaluated. The patient was admitted to inpatient telemetry floor. A cardiology consult was obtained. The patient was noticed to have hypoxic, hypercapnic respiratory failure. This could be most probably from a combination of diastolic heart failure as well as the patient's underlying COPD. The patient was maintained on inhaled bronchodilators. The patient was maintained on Lasix as per cardiology recommendations. The patient's respiratory failure improved throughout the patient's hospital course. The patient underwent a room air ABG that showed significant hypoxia, but not severe enough to qualify the patient for home oxygen. The patient has underlying atrial fibrillation. The patient's rate was controlled. The patient was maintained on therapeutic anticoagulation with warfarin. The patient also has a history of aortic and mitral valve replacement. The patient was maintained on therapeutic anticoagulation with warfarin. The patient has underlying type 2 diabetes mellitus. The patient's hemoglobin A1c was found to be 8.5. The patient was maintained on sliding scale insulin along with Lantus insulin. His blood sugars were well controlled during the hospital course. The patient also has normocytic, normochromic anemia. The patient's H and H remained stable. The patient was maintained on iron supplements. The patient has underlying history of CAD and dyslipidemia. The patient was maintained on statins. The patient has underlying depression. He was maintained on antidepressants. The patient was noticed to have debility. The patient was seen and evaluated by physical therapy. Physical therapy recommended [facility] facility placement. However, the patient's family disagreed on [facility] facility placement. Nevertheless, the patient was able to ambulate with the help of a walker; however, the patient is high risk for falls as per physical therapy notes. The patient's symptomatology improved with the treatment strategy and the patient is stable to be discharged to home with home health for home safety and home physical therapy evaluation. The patient does not qualify for home oxygen based on ABG results as well as based on room air saturations. DISCHARGE DISPOSITION/PLAN: The patient will be discharged home today. The patient was instructed to resume his home medications. The patient was instructed to follow up with his primary care physician in 1 week after discharge and if he does not have a primary care physician, to please call Dr. Dewayne Dave's office. The patient was instructed to take a carbohydrate controlled, low cholesterol diet. The patient was instructed to resume activities as tolerated. The patient's family verbalized understanding of the discharge instructions. CONDITION AT DISCHARGE: Stable. DISCHARGE MEDICATIONS: 1. Ferrous sulfate 325 mg p.o. t.i.d. 2. Lasix 40 mg p.o. daily. 3. Insulin as per sliding scale before meals and at bedtime. 4. Lantus insulin subcutaneous daily. 5. ProAir HFA 8.5 g inhaled q.4h. p.r.n. dyspnea. 6. Aspirin 81 mg p.o. daily. 7. Atorvastatin 20 mg p.o. at bedtime. 8. Digoxin 0.125 mg p.o. daily. 9. Colace 100 mg p.o. b.i.d. 10. Gabapentin 200 mg p.o. t.i.d. 11. Metoprolol 25 mg p.o. b.i.d. 12. Singulair 10 mg p.o. at bedtime. 13. Protonix 40 mg p.o. daily. 14. Zoloft 100 mg p.o. daily. 15. Warfarin 7.5 mg p.o. daily. PERTINENT LABORATORY AND DIAGNOSTIC DATA: 1. Latest chest x-ray on 09/04/2016. Cardiomegaly. Interval improvement of pulmonary vascular congestion. 2. Latest CBC: WBC 5.9, hemoglobin 8.5, hematocrit 26.9, platelet count 129. 3. Latest BMP: Sodium 139, potassium 3.9, chloride 96, carbon dioxide 30, anion gap 13, BUN 34, creatinine 1.07, glucose 110, calcium 8.9. 4. Hemoglobin A1c 8.5. 5. Iron panel: Iron 32, TIBC 425, saturation 8. 6. Fasting lipid panel: Triglycerides 89, total cholesterol 86, LDL 40, HDL 36. 7. Blood gas that was done on room air on 09/05/2016: pH of 7.419, pCO2 of 54.9, pO2 of 59.7, bicarbonate 34.7, oxygen saturation 90.6, base excess 8.8. At this time, I would like to thank all the consultants for seeing the patient and providing clinical recommendations. The case and management of this patient was fully discussed with Dr. Humphreys. Approximately 35 minutes was spent on coordinating the discharge on this patient. REBECCA HUMPHREYS MD, AM/SUDHAKAR Conf#: [id number] DID#: [id number] YOUNG
== END 2016-09-06 18:59 | disposition home or self-care (01) | DRG 291 ==
LOC: E/R 21:26 → TEL 08-31 02:14 → OBSVTOIN 09-02 11:57
PROVIDERS: ADMIT Hospitalist; ATTEND Hospitalist
DX: I11.0 Hypertensive heart disease with heart failure (principal); J96.01 Acute respiratory failure with hypoxia; J96.02 Acute respiratory failure with hypercapnia; J44.1 Chronic obstructive pulmonary disease with (acute) exacerbation; D68.8 Other specified coagulation defects; I50.33 Acute on chronic diastolic (congestive) heart failure; E11.8 Type 2 diabetes mellitus with unspecified complications; I25.10 Atherosclerotic heart disease of native coronary artery without angina pectoris; Z86.74 Personal history of sudden cardiac arrest; Z95.3 Presence of xenogenic heart valve; Z79.01 Long term (current) use of anticoagulants; Z79.82 Long term (current) use of aspirin; Z79.4 Long term (current) use of insulin; Z87.891 Personal history of nicotine dependence; T45.515A Adverse effect of anticoagulants, initial encounter; Y92.009 Unspecified place in unspecified non-institutional (private) residence as the place of occurrence of the external cause; E78.5 Hyperlipidemia, unspecified; D64.9 Anemia, unspecified; F32.9 Major depressive disorder, single episode, unspecified
CPT/HCPCS: 36415; 36600; 71010; 80048; 80053; 80061; 82803; 82962; 83036; 83540; 83735; 83880; 84100; 84439; 84443; 84484; 85025; 85610; 85730; 93005; 94640; 94664; 96374; 96375; 97110; 97116; 97166; 97530; G0378; J1815; J1940; J2270; J2405; J2916

== ENCOUNTER 2016-10-09 01:38 | Inpatient (IN) | payer MEDICARE, MEDICAID ==
[~2016-10-09] VITALS: Ht 165.1 cm; Wt 65.0 kg
[~2016-10-09 01:38] MED LIST changes: -AZIT250T6 PO; +FER325 PO; +FURO-109 PO; -FURO40TA4 PO
[2016-10-09] MEDS ORDERED: SOD CHLORIDE 0.9% 1,000 ML IV STA (01:47)
[2016-10-09] MEDS ORDERED: ASPIRIN 300 MG SUPP PR STA (01:47)
[2016-10-09 02:00] LABS: ADD SCAN DIFF NO
[2016-10-09 02:01] LABS: BASOPHIL # 0.1 10^3/ul (0.0-0.1); BASOPHILS % 0.6 % (0.0-2.0); EOSINOPHILS # 0.8 10^3/ul (0.0-0.5); EOSINOPHILS % 7.7 % (0.0-7.0); HEMATOCRIT 40.8 % (42.0-52.0); HEMOGLOBIN 12.2 g/dl (14.0-18.0); LYMPHOCYTES # 2.9 10^3/ul (0.8-2.9); LYMPHOCYTES % 29.2 % (15.0-51.0); MEAN CORPUSCULAR HEMOGLOBIN 31.1 pg (29.0-33.0); MEAN CORPUSCULAR HGB CONC 29.9 g/dl (32.0-37.0); MEAN CORPUSCULAR VOLUME 104.1 fl (82.0-101.0); MEAN PLATELET VOLUME 10.9 fl (7.4-10.4); MONOCYTE # 0.7 10^3/ul (0.3-0.9); MONOCYTES % 6.8 % (0.0-11.0); NEUTROPHIL # 5.1 10^3/ul (1.6-7.5); NEUTROPHILS % 51.1 % (39.0-77.0); PLATELET COUNT 142 10^3/UL (140-415); RED BLOOD COUNT 3.92 10^6/ul (4.70-6.10); RED CELL DISTRIBUTION WIDTH 16.6 % (11.5-14.5)
[2016-10-09 02:02] LABS: ADD UMIC YES; URINE BILIRUBIN (Dip) NEGATIVE (NEGATIVE); URINE BLOOD (Dip) TRACE (NEGATIVE); URINE COLOR LT. YELLOW (YELLOW); URINE GLUCOSE (Dip) NEGATIVE (NEGATIVE); URINE KETONES (Dip) NEGATIVE (NEGATIVE); URINE LEUKOCYTE ESTERASE (Dip) NEGATIVE (NEGATIVE); URINE NITRITE (Dip) NEGATIVE (NEGATIVE); URINE TOTAL PROTEIN (Dip) TRACE (NEGATIVE); URINE UROBILINOGEN (Dip) 0.2 E.U./dL (0.1-1.0)
[2016-10-09] MEDS ORDERED: PROPOFOL 100 ML ONE ×3 (02:18→21:52)
[2016-10-09 02:24] LABS: ALBUMIN 4.3 g/dl (3.3-4.9)
[2016-10-09 02:25] LABS: INR 1.61; POTASSIUM 5.1 mmol/L (3.5-5.1); PROTIME 19.3 Sec (12.2-14.2); PT RATIO 1.5
[2016-10-09 02:26] LABS: PARTIAL THROMBOPLASTIN TIME 35.2 Sec (25.0-35.0)
[2016-10-09 02:27] LABS: ALBUMIN/GLOBULIN RATIO 1.26; BILIRUBIN,INDIRECT 0.3 mg/dl (0-1.1); BILIRUBIN,TOTAL 0.3 mg/dl (0.2-1.3); CREATININE 1.33 mg/dl (0.61-1.24); TOTAL PROTEIN 7.7 g/dl (6.1-8.1)
[2016-10-09 02:28] LABS: CALCIUM 9.4 mg/dl (8.4-10.2)
[2016-10-09 02:39] LABS: TROPONIN-I 0.028 ng/ml (0.00-0.12)
[2016-10-09] MEDS ORDERED: PROPOFOL 100 ML IV ONE (03:00)
[2016-10-09 03:13] LABS: AADO2 Arterial 101.7 mmHg (7.0-24.0); Allen Test ACCEPTAB; Arterial Base Excess -7.6 mmol/L (-3.0-3); Arterial COHb 0.3 % (0.0-3.0); Arterial Fraction of Oxyhgb 98.8 % (93.0-99.0); Arterial HCO3 21.8 mmol/L (22.0-26.0); Arterial MetHb 0.5 % (0.0-1.5); Arterial Total Hemglobin 12.5 g/dl (12.0-18.0); MODE VENT - AC
--- NOTE | 2016-10-09 03:58 | RADRPT ---
PROCEDURE: XR Chest. CLINICAL INDICATION: Shortness of breath. TECHNIQUE: AP Portable chest. COMPARISON: 09/04/2016 FINDINGS: There is moderate cardiomegaly. Prior median sternotomy is noted. There is mild pulmonary vascular congestion. The osseous structures are unremarkable. An endotracheal tube tip is noted in the mid to distal trachea, likely 2 cm above the level of the c mindi. IMPRESSION: Mild pulmonary vascular congestion. RPTAT: HIKT .Александр Merida MD, MD Date Time Electronically viewed and signed by .Александр Merida MD, MD on 10/09/2016 03:58 .T/
[2016-10-09] MEDS ORDERED: LORAZEPAM 2 MG INJ IV ONE (04:00)
[2016-10-09] MEDS ORDERED: LEVALBUTEROL (NEB) 1.25 MG/0.5 ML AMP HHN ONE (04:00)
[2016-10-09] MEDS ORDERED: IPRATROPIUM (NEB) 0.5 MG/2.5 ML AMP HHN ONE (04:00)
--- NOTE | 2016-10-09 05:00 | HP ---
Date/Time of Note Date/Time of Note DATE: 10/09/16 TIME: 04:22 Assessment/Plan VTE Prophylaxis VTE Prophylaxis Intervention: anti-embolic stocking, other (To be decdided by Plumber Pipe Fitting or Displayer Merchandise) Lines/Catheters IV C[facility]ter Type (from [facility] Saline Lock Urinary Cath still in place: Yes Reason Cath still needed: other (indicate) (Critical Patient. Intubated. Need to monitor Is and Os.) Assessment/Plan Assessment/Plan 1) Cardiac Arrest with ROSC in field after 1 round of CPR, first Troponin 0.028 - Admit to ICU (Not a candidate for hypothermic therapy as he is on coumadin because of valve replacement status) - Serial Cardiac Enzymes, EKG in AM - Echocardiogram - Cardiology Consult 2) Acute Respiratory Failure, Intubated and on Ventilator with respiratory acidosis, - CONSULT: Critical Care - Dr. Piedra 3) Atrial Fibrillation, rate controlled - Already anticoagulated due to heart valve status though he is sub- therapeutic at 1.61 4) Diabetes Mellitus Type 2 - Accu Chek Q4 hours - Mild Insulin Sliding Scale 5) Acute Renal Injury, mild, Cr 1.33 6) Transamminitis, mild, likely reactive - Monitor HPI/ROS Admit Date/Time Admit Date/Time 10/09/16 0348 Hx of Present Illness History per ER Physician as follows: "This 75 year male brought in by paramedics for weakness cardiac arrest at home. Paramedics initiated CPR gave 1 dose of epinephrine after which the patient had return of spontaneous circulation. They placed a mild line in his right tibia as well as a 18-gauge IV in his left arm. Documentation Spec EKG and showed atrial fibrillation. Patient was unresponsive on arrival. I reviewed the documents the came with the patient which are mostly folders with discharge paperwork over there was 1. 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 On Coumadin. He had suffered a heart attack in July." I spoke with one of his daughters who was in the room. She states that her dad lives with her sister. She confirms that he had a Heart Attack about 2 months ago. ER Course per ER Physician: Cardiac arrest likely secondary to myocardial infarction. Initial troponin has not seen a family elevated. Patient had no signs of STEMI on EKG. He was quickly put in the resuscitation room immediately intubated by myself. Oxygen saturation had reached 100% bag mask ventilation prior to intubating and remained 100%. Patient never had a low blood pressure. Hypothermia protocol was not initiated initially because patient is on blood thinners with a target INR 2.5-3.5 for heart valves. Patient's INR returned subtherapeutic bilateral and he was chewing on the ET tube and possibly having purposeful movements with his arms trying to reach up toward his chest. Initial sedation with Ativan was given. He had been on a propofol drip maintaining good blood pressure. Is given a liter of normal saline. Family was at the bedside and I spoke with them. Said the patient had received nebulized breathing treatments before for shortness of breath. His blood gas showed that he was retaining CO2 and had respiratory acidosis. He was then given Xopenex and albuterol and vent settings were changed for high respiratory rate. Dr. Tabitha Hayes will be meeting the patient to the ICU was also at the bedside. Patient's condition is improving becoming more active and his body movements. ROS Subjective hx not possible: pt critical PMH/Family/Social Past Medical History CHF; SOB; [place] Medical History: diabetes Past Surgical History CABG; Cholecystectomy Social History Smoking Status: Unknown if ever smoked Exam/Review of Systems Vital Signs Vitals Vital Signs Date Time Temp Pulse Resp B/P Pulse Ox O2 Delivery O2 Flow Rate FiO2 10/09/16 03:28 65 20 124/68 100 Mechanical Ventilator 10/09/16 03:18 40 10/09/16 01:54 97.3 Exam Exam General: Intubated and sedated, chewing on the tube a bit. RN called in to adjust Propofol Drip Eyes: Sclera White, EOMI HENT: Normocephalic/Atraumatic, External Ears/Nose Normal, Moist Mucus Membranes Neck: Supple, Trachea Midline Cardiovascular: Normal Rate, Irregularly Irregular Rhythm, Normal S1 and S2, No Murmur, No Extra Sounds. Radial pulse +2/4. No pedal Edema. Pulmonary: Coarse breath sounds throughout, Intubated and on Ventilator, No Rales, Rhonchi or Wheezes Gastrointestinal: Normoactive Bowel Sounds, Soft, Non-Tender/No guarding or rebound (but patient is sedated), Non-Distended, No Hepatosplenomegaly Appreciated, No Pulsatile Masses Urogenital: Deferred Musculoskeletal: Normal Muscle Bulk, no deformities 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: Intubated and sedated, but chewing on the tube. While I was examining him, he had 3 clonic-type, full body jerks in rapid succession, each lasting a split second. All 3 occurred within a 10 second timeframe. Integumentary: Normal Moisture and Temperature, Good Turgor, No Jaundice, No Rash Lymphatic: No Cervical Lymphadenopathy Psychiatric: Unable to assess Labs Result Diagram: 10/09/16 0130 10/09/16 0130 Medications Medications Home Meds Active Scripts Furosemide* (Lasix*) 40 Mg Tablet, 40 MG PO DAILY, #30 TAB Prov:REBECCA SHIELDS NP 09/06/16 Ferrous Sulfate* (Ferrous Sulfate*) 325 Mg Tabec, 325 MG PO TID for 30 Days, TAB Prov:EVA PEACE 09/02/16 Insulin Aspart* (Novolog Insulin Pen*) 100 Unit/Ml Soln, 0 UNIT SC AC MEALS AND BEDTIME for 30 Days Prov:EVA PEACE 09/02/16 Insulin Aspart* (Novolog Insulin Pen*) 100 Unit/Ml Soln, 0 UNIT SC WITH MEALS BEDTIME for 30 Days Prov:ERICA GONZALEZ MD 08/25/16 Insulin Glargine* (Lantus*) 100 Unit/Ml Soln, 10 UNIT SC DAILY@20 for 30 Days Prov:ERCIA GONZALEZ MD 08/25/16 Lactobacillus Rhamnosus* (Culturelle*) 1 Each Cap.sprink, 1 CAP PO BID for 7 Days, CAP Prov:BOB PURDY MD 08/04/16 Montelukast Sodium* (Montelukast Sodium*) 10 Mg Tablet, 10 MG NGT HS for 10 Days , TAB Prov:BOB PURDY MD 08/04/16 Warfarin Sodium (Coumadin) 7.5 Mg Tablet, 7.5 MG NGT DAILY@17 for 10 Days, TAB Prov:BOB PURDY MD 08/04/16 Digoxin* (Digoxin*) 0.125 Mg Tab, 0.125 MG PO DAILY@13, #30 TAB Prov:SANJAY ADAMS NP 03/08/14 Docusate Sodium* (Colace*) 100 Mg Cap, 100 MG PO DAILY, #30 Prov:SANJAY ADAMS NP 03/08/14 Reported Medications Multivitamin (One Daily) 1 Each Tablet, 1 EACH PO DAILY, TAB 07/27/16 Gabapentin* (Gabapentin*) 100 Mg Capsule, 200 MG PO TID, #180 CAP 07/27/16 Sertraline Hcl* (Zoloft*) 100 Mg Tablet, 100 MG PO DAILY, #30 TAB 07/27/16 Metoprolol Tartrate* (Lopressor*) 25 Mg Tablet, 25 MG PO BID, #60 TAB 07/27/16 Albuterol Sulfate* (Proair HFA*) 8.5 Gm Hfa.aer.ad, 2 PUFF INH Q4, INH 03/05/14 Pantoprazole (Protonix) 40 Mg Tabec, 40 MG PO DAILY, TAB 03/05/14 Albuterol/Ipratropium* (Combivent Respimat*) 20-100 Mcg/Inh - 4 Gm Aer.w.adap, 1 PUFF IH QID Y for WHEEZING AND SOB, INH 03/05/14 Atorvastatin Calcium* (Atorvastatin Calcium*) 20 Mg Tablet, 20 MG PO HS, TAB 03/05/14 Aspirin (Aspirin) 81 Mg Chew, 81 MG PO DAILY, TAB.CHEW Current Medications Medications (Trade) Dose Ordered Sig/Jhoana Route PRN Reason Start Time Stop Time Status Last Admin Dose Admin Sodium Chloride (NS) 1,000 ml @ 1,000 mls/hr Q1H STAT IV 10/09/16 01:47 10/09/16 02:46 DC 10/09/16 02:03 Aspirin 300 mg 300 mg ONCE STAT MT 10/09/16 01:47 10/09/16 01:49 DC 10/09/16 02:03 Propofol 100 ml @ ud STK-MED ONCE .ROUTE 10/09/16 02:18 10/09/16 02:19 DC Propofol (Diprivan) 100 ml @ 0 mls/hr TITRATE ONCE IV 10/09/16 03:00 10/09/16 03:01 DC 10/09/16 02:37 Levalbuterol (Xopenex Neb) 5 mg ONCE ONCE HHN 10/09/16 04:00 10/09/16 04:01 DC 10/09/16 03:53 Ipratropium [place] (Atrovent 0.02% (Neb)) 0.5 mg ONCE ONCE HHN 10/09/16 04:00 10/09/16 04:01 DC 10/09/16 03:53 Lorazepam (Ativan) 1 mg ONCE ONCE IV 10/09/16 04:00 10/09/16 04:01 DC 10/09/16 03:55 Famotidine (Pepcid Iv) 20 mg Q12 IV 10/09/16 09:00 10/09/16 09:00 DC Eye Lubricant (Artificial Tears Oph) 1 drop TID BOTH EYES 10/09/16 09:00 Famotidine (Pepcid Iv) 20 mg DAILY IV 10/09/16 09:00 Procedures Procedures Laboratory Tests Test 10/09/16 01:30 10/09/16 01:47 10/09/16 01:53 10/09/16 02:57 White Blood Count 10.010^3/ul Red Blood Count 3.9210^6/ul Hemoglobin 12.2g/dl Hematocrit 40.8% Mean Corpuscular Volume 104.1fl Mean Corpuscular Hemoglobin 31.1pg Mean Corpuscular Hemoglobin Concent 29.9g/dl Red Cell Distribution Width 16.6% Platelet Count 01916^3/UL Mean Platelet Volume 10.9fl Neutrophils % 51.1% Lymphocytes % 29.2% Monocytes % 6.8% Eosinophils % 7.7% Basophils % 0.6% Nucleated Red Blood Cells % 0.0/100WBC Neutrophils # 5.110^3/ul Lymphocytes # 2.910^3/ul Monocytes # 0.710^3/ul Eosinophils # 0.810^3/ul Basophils # 0.110^3/ul Nucleated Red Blood Cells # 0.010^3/ul Prothrombin Time 19.3Sec Prothrombin Time Ratio 1.5 INR International Normalized Ratio 1.61 Activated Partial Thromboplast Time 35.2Sec Sodium Level 142mmol/L Potassium Level 5.1mmol/L Chloride Level 101mmol/L Carbon Dioxide Level 24mmol/L Anion Gap 22 Blood Urea Nitrogen 27mg/dl Creatinine 1.33mg/dl Glucose Level 263mg/dl Calcium Level 9.4mg/dl Total Bilirubin 0.3mg/dl Direct Bilirubin 0.00mg/dl Indirect Bilirubin 0.3mg/dl Aspartate Amino Transf (AST/SGOT) 122IU/L Alanine Aminotransferase (ALT/SGPT) 87IU/L Alkaline Phosphatase 102IU/L Troponin I 0.028ng/ml Total Protein 7.7g/dl Albumin 4.3g/dl Globulin 3.40g/dl Albumin/Globulin Ratio 1.26 Bedside Glucose 288mg/dL Urine Color LT. YELLOW Urine Clarity CLEAR Urine pH 5.5 Urine Specific Purdy 1.025 Urine Ketones NEGATIVE Urine Nitrite NEGATIVE Urine Bilirubin NEGATIVE Urine Urobilinogen 0.2 E.U./dL Urine Leukocyte Esterase NEGATIVE Urine Microscopic RBC 2-5/HPF Urine Microscopic WBC 0-2/HPF Urine Hemoglobin TRACE Urine Glucose NEGATIVE% Urine Total Protein TRACE Blood Gas Specimen Source Blood arterial Arterial Blood Date Drawn 10/09/2016 3:02:45 AM Arterial Blood pH (Temp corrected) 7.155 Arterial Blood pCO2 (Temp correct) 63.4mmhg Arterial Blood pO2 (Temp corrected) 547.9mmHG Arterial Blood HCO3 21.8mmol/L Arterial Blood Base Excess -7.6mmol/L Arterial Blood Oxygen Saturation 99.6mmHG Vicente Test ACCEPTAB Arterial Blood Gas Puncture Site Right Radial Arterial Blood Carboxyhemoglobin 0.3% Arterial Blood Methemoglobin 0.5% Blood Gas A-a O2 Differential 101.7mmHg Oxyhemoglobin Percent 98.8% Total Hemoglobin 12.5g/dl Blood Gas Temperature 37.0C Blood Gas Respiration Rate 14.0 Blood Gas Actual Respiration Rate 14 Blood Gas Modality VENT - AC FiO2 100.0% Blood Gas Tidal Volume 500.0mL Blood Gas Low PEEP Setting 5.0cmH2O Blood Gas Inspiratory Pressure 25.0 Blood Gas Critical Value Read Back Sherin PEREZ MD Blood Gas Notified Whom AA Blood Gas Notified Time 10/09/2016 3:13:34 AM EKG: Interpretation by ER Physician: Atrial fibrillation rate of 86, normal axis , ST depressions in anterior leads concerning for ischemia, no ST elevations. Normal intervals. potato seed cutter interpretation: Rate controlled A. fib with no other arrhythmias Chest x-ray interpretation: Engorgement of pulmonary vasculature, no pneumothorax, no gera pulmonary edema, no infiltrates, no fractures. PROCEDURE: XR Chest. CLINICAL INDICATION: Shortness of breath. TECHNIQUE: AP Portable chest. COMPARISON: 09/04/2016 FINDINGS: There is moderate cardiomegaly. Prior median sternotomy is noted. There is mild pulmonary vascular congestion. The osseous structures are unremarkable. An endotracheal tube tip is noted in the mid to distal trachea, likely 2 cm above the level of the iván. IMPRESSION: Mild pulmonary vascular congestion. TABITHA HAYES DO Oct 09, 2016 04:37 TABITHA HAYES DO Oct 09, 2016 04:37
--- NOTE | 2016-10-09 05:25 | ERA ---
ER Documentation Chief Complaint Date/Time DATE: 10/09/16 TIME: 05:09 Chief Complaint bib ra 39 for cardiac arrest from home HPI This 75 year male brought in by paramedics for weakness cardiac arrest at home. Paramedics initiated CPR gave 1 dose of epinephrine after which the patient had return of spontaneous circulation. They placed a mild line in his right tibia as well as a 18-gauge IV in his left arm. Production Editor EKG and showed atrial fibrillation. Patient was unresponsive on arrival. I reviewed the documents the came with the patient which are mostly folders with discharge paperwork over there was 1. 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 On Coumadin. He had suffered a heart attack in July. ROS Unobtainable Medications Home Meds Active Scripts Furosemide* (Lasix*) 40 Mg Tablet, 40 MG PO DAILY, #30 TAB Prov:REBECCA SHIELDS NP 09/06/16 Ferrous Sulfate* (Ferrous Sulfate*) 325 Mg Tabec, 325 MG PO TID for 30 Days, TAB Prov:EVA PEACE 09/02/16 Insulin Aspart* (Novolog Insulin Pen*) 100 Unit/Ml Soln, 0 UNIT SC AC MEALS AND BEDTIME for 30 Days Prov:EVA PEACE 09/02/16 Insulin Aspart* (Novolog Insulin Pen*) 100 Unit/Ml Soln, 0 UNIT SC WITH MEALS BEDTIME for 30 Days Prov:ERICA GONZALEZ MD 08/25/16 Insulin Glargine* (Lantus*) 100 Unit/Ml Soln, 10 UNIT SC DAILY@20 for 30 Days Prov:ERICA GONZALEZ MD 08/25/16 Lactobacillus Rhamnosus* (Culturelle*) 1 Each Cap.sprink, 1 CAP PO BID for 7 Days, CAP Prov:BOB PURDY MD 08/04/16 Montelukast Sodium* (Montelukast Sodium*) 10 Mg Tablet, 10 MG NGT HS for 10 Days , TAB Prov:BOB PURDY MD 08/04/16 Warfarin Sodium (Coumadin) 7.5 Mg Tablet, 7.5 MG NGT DAILY@17 for 10 Days, TAB Prov:BOB PURDY MD 08/04/16 Digoxin* (Digoxin*) 0.125 Mg Tab, 0.125 MG PO DAILY@13, #30 TAB Prov:SANJAY ADAMS BASKETBALL COACH 03/08/14 Docusate Sodium* (Colace*) 100 Mg Cap, 100 MG PO DAILY, #30 Prov:SANJAY ADAMS BASKETBALL COACH 03/08/14 Reported Medications Multivitamin (One Daily) 1 Each Tablet, 1 EACH PO DAILY, TAB 07/27/16 Gabapentin* (Gabapentin*) 100 Mg Capsule, 200 MG PO TID, #180 CAP 07/27/16 Sertraline Hcl* (Zoloft*) 100 Mg Tablet, 100 MG PO DAILY, #30 TAB 07/27/16 Metoprolol Tartrate* (Lopressor*) 25 Mg Tablet, 25 MG PO BID, #60 TAB 07/27/16 Albuterol Sulfate* (Proair HFA*) 8.5 Gm Hfa.aer.ad, 2 PUFF INH Q4, INH 03/05/14 Pantoprazole (Protonix) 40 Mg Tabec, 40 MG PO DAILY, TAB 03/05/14 Albuterol/Ipratropium* (Combivent Respimat*) 20-100 Mcg/Inh - 4 Gm Aer.w.adap, 1 PUFF IH QID Y for WHEEZING AND SOB, INH 03/05/14 Atorvastatin Calcium* (Atorvastatin Calcium*) 20 Mg Tablet, 20 MG PO HS, TAB 03/05/14 Aspirin (Aspirin) 81 Mg Chew, 81 MG PO DAILY, TAB.CHEW 03/05/14 Allergies Allergies: Coded Allergies: No Known Allergy (Unverified , 09/04/16) per daughters, Romana and Melissa, No Known Allergy. PMhx/Soc History of Surgery: Yes (CABG, GALLBLADDER) Anesthesia Reaction: No Hx 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 Disorder: No Hx Respiratory Disorders: Yes (CHF, SOB) Hx Cardiac Disorders: Yes (CHF, [place]) Hx Psychiatric Problems: No Hx Miscellaneous Medical Probl: No Hx Alcohol Use: No Hx Substance Use: No Hx Tobacco Use: No Smoking Status: Unknown if ever smoked Physical Exam Vitals Vital Signs Date Time Temp Pulse Resp B/P Pulse Ox O2 Delivery O2 Flow Rate FiO2 10/09/16 03:28 65 20 124/68 100 Mechanical Ventilator 10/09/16 03:18 63 21 100 40 10/09/16 02:55 66 16 121/71 100 Mechanical Ventilator 10/09/16 02:29 75 16 134/76 100 10/09/16 02:14 78 16 143/95 100 Mechanical Ventilator 10/09/16 01:55 104 14 100 100 10/09/16 01:54 97.3 95 18 144/93 100 Mechanical Ventilator 10/09/16 01:45 97.3 95 19 134/80 100 Physical Exam Const: [] Unresponsive Head: Atraumatic Eyes: Normal Conjunctiva, pupils fixed, dilated. ENT: Normal External Ears, Nose and Mouth. Neck: Full range of motion..~ No meningismus. Resp: Bilateral breath sounds to bag mask ventilation Cardio: Irregularly irregular tachycardia, no murmurs Abd: Soft,, non distended. Normal bowel sounds Skin: No petechiae or rashes Ext: No cyanosis, bilateral 2+ pedal edema Neur: . Completely Unresponsive, no corneal reflex Result Diagram: 10/09/16 0130 10/09/16 0130 Results 24 hrs Laboratory Tests Test 10/09/16 01:30 10/09/16 01:47 10/09/16 01:53 10/09/16 02:57 White Blood Count 10.010^3/ul Red Blood Count 3.9210^6/ul Hemoglobin 12.2g/dl Hematocrit 40.8% Mean Corpuscular Volume 104.1fl Mean Corpuscular Hemoglobin 31.1pg Mean Corpuscular Hemoglobin Concent 29.9g/dl Red Cell Distribution Width 16.6% Platelet Count 50525^3/UL Mean Platelet Volume 10.9fl Neutrophils % 51.1% Lymphocytes % 29.2% Monocytes % 6.8% Eosinophils % 7.7% Basophils % 0.6% Nucleated Red Blood Cells % 0.0/100WBC Neutrophils # 5.110^3/ul Lymphocytes # 2.910^3/ul Monocytes # 0.710^3/ul Eosinophils # 0.810^3/ul Basophils # 0.110^3/ul Nucleated Red Blood Cells # 0.010^3/ul Prothrombin Time 19.3Sec Prothrombin Time Ratio 1.5 INR International Normalized Ratio 1.61 Activated Partial Thromboplast Time 35.2Sec Sodium Level 142mmol/L Potassium Level 5.1mmol/L Chloride Level 101mmol/L Carbon Dioxide Level 24mmol/L Anion Gap 22 Blood Urea Nitrogen 27mg/dl Creatinine 1.33mg/dl Glucose Level 263mg/dl Calcium Level 9.4mg/dl Total Bilirubin 0.3mg/dl Direct Bilirubin 0.00mg/dl Indirect Bilirubin 0.3mg/dl Aspartate Amino Transf (AST/SGOT) 122IU/L Alanine Aminotransferase (ALT/SGPT) 87IU/L Alkaline Phosphatase 102IU/L Troponin I 0.028ng/ml Total Protein 7.7g/dl Albumin 4.3g/dl Globulin 3.40g/dl Albumin/Globulin Ratio 1.26 Bedside Glucose 288mg/dL Urine Color LT. YELLOW Urine Clarity CLEAR Urine pH 5.5 Urine Specific Agenda 1.025 Urine Ketones NEGATIVE Urine Nitrite NEGATIVE Urine Bilirubin NEGATIVE Urine Urobilinogen 0.2 E.U./dL Urine Leukocyte Esterase NEGATIVE Urine Microscopic RBC 2-5/HPF Urine Microscopic WBC 0-2/HPF Urine Hemoglobin TRACE Urine Glucose NEGATIVE% Urine Total Protein TRACE Blood Gas Specimen Source Blood arterial Arterial Blood Date Drawn 10/09/2016 3:02:45 AM Arterial Blood pH (Temp corrected) 7.155 Arterial Blood pCO2 (Temp correct) 63.4mmhg Arterial Blood pO2 (Temp corrected) 547.9mmHG Arterial Blood HCO3 21.8mmol/L Arterial Blood Base Excess -7.6mmol/L Arterial Blood Oxygen Saturation 99.6mmHG Vicente Test ACCEPTAB Arterial Blood Gas Puncture Site Right Radial Arterial Blood Carboxyhemoglobin 0.3% Arterial Blood Methemoglobin 0.5% Blood Gas A-a O2 Differential 101.7mmHg Oxyhemoglobin Percent 98.8% Total Hemoglobin 12.5g/dl Blood Gas Temperature 37.0C Blood Gas Respiration Rate 14.0 Blood Gas Actual Respiration Rate 14 Blood Gas Modality VENT - AC FiO2 100.0% Blood Gas Tidal Volume 500.0mL Blood Gas Low PEEP Setting 5.0cmH2O Blood Gas Inspiratory Pressure 25.0 Blood Gas Critical Value Read Back Sherin PEREZ MD Blood Gas Notified Whom AA Blood Gas Notified Time 10/09/2016 3:13:34 AM Current Medications Medications (Trade) Dose Ordered Sig/Jhoana Route PRN Reason Start Time Stop Time Status Last Admin Dose Admin Sodium Chloride (NS) 1,000 ml @ 1,000 mls/hr Q1H STAT IV 10/09/16 01:47 10/09/16 02:46 DC 10/09/16 02:03 Aspirin 300 mg 300 mg ONCE STAT IN 10/09/16 01:47 10/09/16 01:49 DC 10/09/16 02:03 Propofol 100 ml @ ud STK-MED ONCE .ROUTE 10/09/16 02:18 10/09/16 02:19 DC Propofol (Diprivan) 100 ml @ 0 mls/hr TITRATE ONCE IV 10/09/16 03:00 10/09/16 03:01 DC 10/09/16 02:37 Levalbuterol (Xopenex Neb) 5 mg ONCE ONCE HHN 10/09/16 04:00 10/09/16 04:01 DC 10/09/16 03:53 Ipratropium [place] (Atrovent 0.02% (Neb)) 0.5 mg ONCE ONCE HHN 10/09/16 04:00 10/09/16 04:01 DC 10/09/16 03:53 Lorazepam (Ativan) 1 mg ONCE ONCE IV 10/09/16 04:00 10/09/16 04:01 DC 10/09/16 03:55 Famotidine (Pepcid Iv) 20 mg Q12 IV 10/09/16 09:00 10/09/16 09:00 DC Eye Lubricant (Artificial Tears Oph) 1 drop TID BOTH EYES 10/09/16 09:00 Famotidine (Pepcid Iv) 20 mg DAILY IV 10/09/16 09:00 Procedures/MDM Cardiac arrest likely secondary to myocardial infarction. Initial troponin has not seen a family elevated. Patient had no signs of STEMI on EKG. He was quickly put in the resuscitation room immediately intubated by myself. Oxygen saturation had reached 100% bag mask ventilation prior to intubating and remained 100%. Patient never had a low blood pressure. Hypothermia protocol was not initiated initially because patient is on blood thinners with a target INR 2.5-3.5 for heart valves. Patient's INR returned subtherapeutic bilateral and he was chewing on the ET tube and possibly having purposeful movements with his arms trying to reach up toward his chest. Initial sedation with Ativan was given. He had been on a propofol drip maintaining good blood pressure. Is given a liter of normal saline. Family was at the bedside and I spoke with them. Said the patient had received nebulized breathing treatments before for shortness of breath. His blood gas showed that he was retaining CO2 and had respiratory acidosis. He was then given Xopenex and albuterol and vent settings were changed for high respiratory rate. Dr. Tabitha Hayes will be meeting the patient to the ICU was also at the bedside. Patient's condition is improving becoming more active and his body movements. EKG interpretation: Atrial fibrillation rate of 86, normal axis, ST depressions in anterior leads concerning for ischemia, no ST elevations. Normal intervals. cafeteria monitor interpretation: Rate controlled A. fib with no other arrhythmias Chest x-ray interpretation: Engorgement of pulmonary vasculature, no pneumothorax, no gera pulmonary edema, no infiltrates, no fractures. Critical care time 46 minutes: This includes postresuscitative care, ventilator management, chart review, careful use of sedation, careful fluid administration , multiple is the patient's bedside to reassess status, discussion with family and admitting doctor. This does not include any billable procedures. ET intubation note: Patient was unresponsive and RSI was not use. Patient was pre-ventilated with bag mask ventilation and oral airway to oxygen saturation 100%. Size 8 ET tube was easily introduced through visualized cords using a Mac 4 blade. There were no complications and the procedure was tolerated well considering. Oxygenation was 1 her percent after the procedure and blood pressure remained stable. Ventilator settings were rate of 14, tidal volume 500 , no PEEP, FiO2 100%. Departure Diagnosis: Primary Impression: Cardiac arrest Additional Impressions: Acute electrocardiogram changes Atrial fibrillation Hyperglycemia Respiratory acidosis COPD exacerbation Renal insufficiency Condition: Critical LEONARDA PEREZ DO Oct 09, 2016 05:22
[2016-10-09] MEDS ORDERED: GLUCOSE GEL 15 GRAM TUBE BUCCAL PRN (05:30)
[2016-10-09] MEDS ORDERED: GLUCAGON 1 MG INJ IM PRN (05:30)
[2016-10-09] MEDS ORDERED: DEXTROSE 50% 50 ML SYRINGE IV PRN ×2 (05:30)
[2016-10-09] MEDS ORDERED: GLUCOSE GEL 15 GRAM TUBE PO PRN ×2 (05:30)
[2016-10-09 05:59] LABS: ADD SCAN DIFF NO
[2016-10-09 06:04] LABS: ABNORMAL IP MESSAGE 1; BASOPHILS % 0.3 % (0.0-2.0); EOSINOPHILS # 0.1 10^3/ul (0.0-0.5); EOSINOPHILS % 0.8 % (0.0-7.0); HEMATOCRIT 33.6 % (42.0-52.0); HEMOGLOBIN 10.6 g/dl (14.0-18.0); LYMPHOCYTES # 0.4 10^3/ul (0.8-2.9); LYMPHOCYTES % 2.7 % (15.0-51.0); MEAN CORPUSCULAR HEMOGLOBIN 31.5 pg (29.0-33.0); MEAN CORPUSCULAR HGB CONC 31.5 g/dl (32.0-37.0); MEAN PLATELET VOLUME 10.8 fl (7.4-10.4); MONOCYTE # 1.4 10^3/ul (0.3-0.9); NEUTROPHIL # 10.9 10^3/ul (1.6-7.5); NEUTROPHILS % 84.2 % (39.0-77.0); PLATELET COUNT 128 10^3/UL (140-415); RED BLOOD COUNT 3.36 10^6/ul (4.70-6.10); RED CELL DISTRIBUTION WIDTH 16.3 % (11.5-14.5); WHITE BLOOD COUNT 12.9 10^3/ul (4.8-10.8)
[2016-10-09 06:23] LABS: ALBUMIN 3.4 g/dl (3.3-4.9); ALBUMIN/GLOBULIN RATIO 1.21; BILIRUBIN,INDIRECT 0.1 mg/dl (0-1.1); BILIRUBIN,TOTAL 0.1 mg/dl (0.2-1.3); CALCIUM 8.6 mg/dl (8.4-10.2); CREATININE 1.32 mg/dl (0.61-1.24); MAGNESIUM 1.9 mg/dl (1.7-2.5); POTASSIUM 4.6 mmol/L (3.5-5.1); TOTAL PROTEIN 6.2 g/dl (6.1-8.1)
[2016-10-09] MEDS: ACCUCHECK AT 2AM (Patients on SS coverage) XX SCH (08:39)
[2016-10-09] MEDS: ARTIFICIAL TEARS 15 ML OPH BOTH EYES SCH ×3 (08:42→21:00)
[2016-10-09] MEDS: INSULIN ASPART [NOVOLOG] 3 ML PEN SC SCH ×4 (08:46→22:08)
[2016-10-09] MEDS: FAMOTIDINE 20 MG INJ IV SCH (08:51)
[2016-10-09] MEDS ORDERED: FAMOTIDINE 20 MG INJ IV SCH (09:00)
[2016-10-09 09:40] LABS: AADO2 Arterial 107.8 mmHg (7.0-24.0); Allen Test ACCEPTAB; Arterial Base Excess -3.4 mmol/L (-3.0-3); Arterial COHb 0.3 % (0.0-3.0); Arterial Fraction of Oxyhgb 97.4 % (93.0-99.0); Arterial HCO3 22.4 mmol/L (22.0-26.0); Arterial MetHb 0.3 % (0.0-1.5); Arterial Total Hemglobin 11.6 g/dl (12.0-18.0); Blood Gas Low PEEP Setting 0 cmH2O; MODE VENT - AC
--- NOTE | 2016-10-09 12:38 | RADRPT ---
PROCEDURE: CT Brain without contrast. CLINICAL INDICATION: Altered Mental Status TECHNIQUE: A CT of the brain was perform utilizing axial imaging from the skull base through the v ertex without IV contrast. Multiplanar reformatted images were made. Images were reviewed on a PAC S workstation. The CTDIvol is 45 mGy and the DLP is 990 mGycm. COMPARISON: Head CT July 27, 2016 FINDINGS: There is moderate to severe diffuse cerebral volume loss with sulcal and ventricular dilatation. No discrete extra-axial fluid collection or masses seen. The ventricles are in the midline and of nor mal contour and configuration. No intra-axial masses or regions of abnormal attenuation are seen. There is no intracranial hemorrhage. Mondragon-white discrimination is preserved. There is normal aeration of the visualized paranasal sinuses. IMPRESSION: 1. No evidence of acute intracranial pathology. 2. Atrophy. .Kolby Hahn MD, MD Date Time Electronically viewed and signed by .Kolby Hahn MD, on 10/09/2016 12:37 .A/
[2016-10-09] MEDS ORDERED: LEVETIRACETAM 1000 MG (PMX) 100 ML IVPB ONE (13:00)
[2016-10-09] MEDS ORDERED: ACETAMINOPHEN 1000MG/100ML IV 100 ML IVPB ONE (13:00)
[2016-10-09 14:33] LABS: CK-MB 5.02 ng/ml (0.0-2.4)
[2016-10-09 14:56] LABS: TROPONIN-I 0.285 ng/ml (0.00-0.12)
[2016-10-09 15:38] LABS: CK-MB 8.52 ng/ml (0.0-2.4)
[2016-10-09 15:42] LABS: TROPONIN-I 1.12 ng/ml (0.00-0.12)
--- NOTE | 2016-10-09 16:27 | RADRPT ---
Echocardiogram Report Patient Name: VALERIE JACOBS Gender: Male Date: 1940 Study Date: 09-Oct-2016 Stock Checker: [facility] Location: [facility] Ref. Physician: ROJAS VALIENTE Quality: Adequate Procedures: Transthoracic echocardiogram with complete 2D, M-Mode, and doppler examination. Indications: Cardiac Arrest. 2D/M Mode Doppler Measurement Value Normal Ranges Measurement Value Normal Ranges LVIDd 2D 4.6 3.5 - 5.6 cm WING Vmax 0.9 cm2 LVPWd 2D 1.1 0.6 - 1.1 cm WING VTI 0.9 cm2 IVSd 2D 1.0 0.6 - 1.1 cm AV Mean Jose 2.1 m/sec LVOT Diam 1.8 cm AV Mean PG 20.8 mmHg AV Peak Jose 3.1 m/sec AV Peak PG 39.1 mmHg AV VTI 53.1 cm LVOT Mean Jose 0.8 m/sec LVOT Mean PG 2.7 mmHg LVOT Peak Jose 1.1 m/sec LVOT Peak PG 4.8 mmHg LVOT VTI 22.4 cm MV PHT 81.7 msec MV Peak Jose 2.1 m/sec MV Peak PG 17.0 mmHg MV Mean Jose 1.0 m/sec MV Mean PG 5.6 mmHg MV PHT 81.7 msec MV VTI 33.1 cm MVA PHT 2.7 cm2 MVA VTI 1.6 cm TR Peak Jose 3.5 m/sec TR Peak PG 48.1 mmHg Findings Left Ventricle: Normal left ventricular systolic function. Normal left ventricular cavity size. Normal left ventricular wall thickness. Ejection fraction is visually estimated at 65 %. Right Ventricle: Mild enlargement of right ventricle. Mild right ventricular hypokinesis. Left Atrium: There is severe enlargement of left atrium. Right Atrium: There is severe enlargement of right atrium. RA Pressure=15. Mitral Valve: Trace mitral regurgitation. Mitral Valve Bio Prosthesis. MeanPG 5.60 mmHg. Aortic Valve: Aortic Valve Bio Prosthesis. Mild aortic stenosis. Mean PG 20.80 mmHg. Trace aortic valve regurgitation. Tricuspid Valve: Normal appearance of the tricuspid valve. Estimated peak PA systolic pressure 63 mmHg. There is moderate tricuspid regurgitation. Pulmonic Valve: There is trace pulmonic regurgitation. Pericardium: Normal pericardium with no significant pericardial effusion. Aorta: Normal aortic root. IVC: Inferior vena cava with poor respiratory collapse, however, patient on ventilator. Conclusions 1.Normal left ventricular systolic function. Normal left ventricular cavity size. Normal left ventricular wall thickness. Ejection fraction is visually estimated at 65 %. 2.Mild enlargement of right ventricle. Mild right ventricular hypokinesis. 3.There is severe enlargement of left atrium. 4.There is severe enlargement of right atrium. RA Pressure=15. 5.Trace mitral regurgitation. Mitral Valve Bio Prosthesis. MeanPG 5.60 mmHg. 6.Aortic Valve Bio Prosthesis. Mild aortic stenosis. Mean PG 20.80 mmHg. Trace aortic valve regurgitation. 7.Normal appearance of the tricuspid valve. Estimated peak PA systolic pressure 63 mmHg. There is moderate tricuspid regurgitation. 8.Normal pericardium with no significant pericardial effusion. Electronically Signed By: Slade Iverson 09-Oct-2016 16:27:12 -0700 Patient Name: VALERIE JACOBS Study Date: 09-Oct-2016 [id number]
[2016-10-09] MEDS: ALBUTEROL 0.083% (NEB) 2.5 MG/3 ML AMP HHN PRN (19:14)
[2016-10-09] MEDS: LEVETIRACETAM 500 MG (PMX) 100 ML IVPB SCH (21:00)
[2016-10-09] MEDS ORDERED: HEPARIN 1000 UNITS/ML 10 ML INJ IV ONE (23:30)
[2016-10-09] MEDS ORDERED: FUROSEMIDE 40 MG INJ IV ONE (23:30)
[2016-10-09] MEDS ORDERED: CEFTRIAXONE 2 GM/50 ML (PMX) 50 ML IVPB ONE (23:30)
[2016-10-10] VITALS (32 sets, daily range): BP systolic 80–112; BP diastolic 54–86; PULSE 77–104; RESP 15–20; TEMP 99.4
--- NOTE | 2016-10-10 00:33 | CONS ---
DATE OF ADMISSION: 10/09/2016 DATE OF CONSULTATION: 10/09/2016 TYPE OF CONSULTATION: Cardiology. The patient is well known to me from my office. HISTORY OF PRESENT ILLNESS: The patient presented to the hospital after experiencing shortness of b reath, went to reach for his nebulizer. During the time of reaching to his nebulizer, the patient c ollapsed and had respiratory failure, and apparently according to the daughter, the patient was resu scitated by the sister. The patient was then brought into the hospital and presumed to have a cardi ac arrest. However, according to the notes from the past, the patient was hospitalized in 07/2016, again with cardiac arrest. According to the family, it was not a full-on cardiac arrest, it was sim ilar to what happened and most likely respiratory arrest. According to nursing staff as well as the family, the patient was seen by the primary care physician approximately a week ago and was given Z ithromax for presumable bronchitis as well. The patient at this moment is intubated in the ER, room 4. I received a phone call from the family to see the patient, and the patient's laboratory work has returned as following. Laboratory work has revealed a WBC of 12.9, H and H 10 over 33 and platelet count of 128. Chemistry has revealed a sodium of 140, potassium 4.6, chloride 108, CO2 is 25, anion gap is 12, BUN is 32, c reatinine 1.32, glucose is 244. Hemoglobin A1c 6.8. Troponin was elevated to 1.120. Please note t hat the patient also received CPR. Electrocardiogram has revealed ST depression in the anterior leads. Blood gas has revealed an ABG of 7.329 with a HCO3 of 22.4 and pO2 of 127. When the patient had presented to the hospital, the patient's pH was 7.155. In the past when he had presented in July, it was 7.322. The patient at the moment has not having any seizure-like activities. It is very possible that the patient unfortunately had an ischemic brain injury. On exam, the patient is shaking, has a lip-smacking sensation, biting the tube. However, the patien t was given Keppra according to the ER physician. The neurologist had seen him according to the ER physician as well. Unfortunately, there is no bed in the ICU. The patient has been here in the ER for almost 18 hours, and the ICU team is taking care of him. MEDICATIONS: Include: 1. Propofol. 2. Keppra. 3. Famotidine. 4. I started the patient on ceftriaxone due to the fact that the chest x-ray has revealed bilateral infiltrates. 5. The patient will also be receiving normal saline. This will be given in gentle hydration form due to the fact that there is congestion as well. PHYSICAL EXAMINATION: CHEST: Decreased breath sounds bilaterally and there are crackles. CARDIOVASCULAR: S1, S2. Soft systolic ejection murmur. ABDOMEN: Soft. Positive bowel sounds. EXTREMITIES: No clubbing, edema. PAST SURGICAL HISTORY AND PAST MEDICAL HISTORY: Also includes mitral valve replacement as well as a ortic valve replacement with bioprosthetic valves. Ejection fraction on today's echocardiogram revealed ejection fraction of 65%. IMPRESSION: 1. Cardiac arrest, most likely due to respiratory arrest. 2. He has a history of respiratory arrest and questionable cardiac arrest in 07/2016 again. The [facility] does not have a defibrillator. Ejection fraction 65%. There have not been any rhythm changes in regard to ventricular tachycardia that has been recorded. The underlying rhythm is atrial fibrillation. I started the patient on IV heparin drip due to the fact that the patient has atrial fibrillation as well as the patient has positive troponins. There is non-ST elevation myocardial infarction at the moment, most likely secondary to demand ische sommer versus the cardiac arrest and utilizing CPR for resuscitation. The patient may have had ischemic brain injury. This is unknown at the moment. The patient is on propofol for sedation. At this point I would recommend for the patient to be cleared by Neurology prior to performing any f orm of cardiac catheterization. Cardiovascularly he is stable. Respiratory-martin, the patient will need the sewage plant attendant to follow up with him in the ICU. Dr. Kianna rivas has already seen him, and he will follow up most likely. PROGNOSIS: At this moment is unclear. However, if the patient brain ischemic injury, then there ma y be a poor prognosis. However, this is unknown at the moment. Dictated By: BEBO VILLAR MD LP/NTS Conf#: [id number] DID#: [id number]
[2016-10-10] MEDS: ACETAMINOPHEN 650 MG SUPP PR PRN ×2 (00:36→17:20)
[2016-10-10 00:37] LABS: ADD SCAN DIFF NO
[2016-10-10 00:43] LABS: ABNORMAL IP MESSAGE 1; BASOPHILS % 0.2 % (0.0-2.0); EOSINOPHILS % 0.1 % (0.0-7.0); HEMOGLOBIN 10.3 g/dl (14.0-18.0); LYMPHOCYTES # 0.3 10^3/ul (0.8-2.9); LYMPHOCYTES % 2.2 % (15.0-51.0); MEAN CORPUSCULAR HEMOGLOBIN 30.6 pg (29.0-33.0); MEAN CORPUSCULAR HGB CONC 31.2 g/dl (32.0-37.0); MEAN CORPUSCULAR VOLUME 97.9 fl (82.0-101.0); MONOCYTE # 0.9 10^3/ul (0.3-0.9); MONOCYTES % 7.1 % (0.0-11.0); NEUTROPHIL # 11.6 10^3/ul (1.6-7.5); NEUTROPHILS % 89.8 % (39.0-77.0); PLATELET COUNT 104 10^3/UL (140-415); RED BLOOD COUNT 3.37 10^6/ul (4.70-6.10); RED CELL DISTRIBUTION WIDTH 17.1 % (11.5-14.5); WHITE BLOOD COUNT 12.9 10^3/ul (4.8-10.8)
[2016-10-10] MEDS ORDERED: PROPOFOL 100 ML IV SCH (01:00)
[2016-10-10 01:08] LABS: INR 1.7; PROTIME 20.1 Sec (12.2-14.2); PT RATIO 1.6
[2016-10-10 01:09] LABS: PARTIAL THROMBOPLASTIN TIME 35.4 Sec (25.0-35.0)
[2016-10-10] MEDS: HEPARIN 25000 UNITS/250 ML 250 ML IV SCH (01:09)
[2016-10-10] MEDS: ALBUTEROL 0.083% (NEB) 2.5 MG/3 ML AMP HHN PRN ×2 (01:11→05:12)
[2016-10-10] MEDS ORDERED: GLUCOSE GEL 15 GRAM TUBE PO PRN ×2 (02:00)
[2016-10-10] MEDS ORDERED: DEXTROSE 50% 50 ML SYRINGE IV PRN ×2 (02:00)
[2016-10-10] MEDS ORDERED: GLUCAGON 1 MG INJ IM PRN (02:00)
[2016-10-10] MEDS ORDERED: GLUCOSE GEL 15 GRAM TUBE BUCCAL PRN (02:00)
[2016-10-10] MEDS: Insulin NOVOLOG SS MILD Algorithm (NPO/TPN/ENTERAL FEEDS) SC SCH ×5 (05:00→21:34)
[2016-10-10] MEDS ORDERED: SOD CHLORIDE 0.9% 1,000 ML IV ONE (05:00)
[2016-10-10] MEDS ORDERED: INSULIN ASPART [NOVOLOG] 3 ML PEN SC SCH (05:00)
[2016-10-10 05:47] LABS: ADD SCAN DIFF NO
[2016-10-10 05:51] LABS: ABNORMAL IP MESSAGE 1; BASOPHILS % 0.2 % (0.0-2.0); EOSINOPHILS % 0.2 % (0.0-7.0); HEMATOCRIT 32.2 % (42.0-52.0); HEMOGLOBIN 10.4 g/dl (14.0-18.0); LYMPHOCYTES # 0.4 10^3/ul (0.8-2.9); MEAN CORPUSCULAR HEMOGLOBIN 31.7 pg (29.0-33.0); MEAN CORPUSCULAR HGB CONC 32.3 g/dl (32.0-37.0); MEAN CORPUSCULAR VOLUME 98.2 fl (82.0-101.0); MONOCYTE # 0.9 10^3/ul (0.3-0.9); MONOCYTES % 7.8 % (0.0-11.0); NEUTROPHIL # 10.3 10^3/ul (1.6-7.5); NEUTROPHILS % 88.5 % (39.0-77.0); PLATELET COUNT 93 10^3/UL (140-415); RED BLOOD COUNT 3.28 10^6/ul (4.70-6.10); RED CELL DISTRIBUTION WIDTH 17.2 % (11.5-14.5); WHITE BLOOD COUNT 11.6 10^3/ul (4.8-10.8)
[2016-10-10 05:58] LABS: POTASSIUM 3.4 mmol/L (3.5-5.1)
[2016-10-10 06:00] LABS: CREATININE 1.47 mg/dl (0.61-1.24)
[2016-10-10 06:01] LABS: CALCIUM 8.6 mg/dl (8.4-10.2); PHOSPHORUS 4.4 mg/dl (2.5-4.9)
[2016-10-10] MEDS: SOD CHLORIDE 0.9% 1,000 ML IV SCH ×3 (07:29→21:20)
[2016-10-10] MEDS ORDERED: LIDOCAINE 1% (MPF) 5 ML VIAL SC ONE ×2 (07:30→10:00)
[2016-10-10] MEDS: LEVETIRACETAM 500 MG (PMX) 100 ML IVPB SCH ×2 (10:14→21:28)
[2016-10-10] MEDS: FAMOTIDINE 20 MG INJ IV SCH (10:19)
[2016-10-10] MEDS: ARTIFICIAL TEARS 15 ML OPH BOTH EYES SCH ×3 (10:22→21:30)
--- NOTE | 2016-10-10 11:56 | RADRPT ---
PROCEDURE: US guidance for PICC line CLINICAL INDICATION: PICC line placement TECHNIQUE: Multiple real-time images were acquired of the patient's arm utilizing a high resolutio n transducer. This was performed by the PICC line nurse for venous access. COMPARISON: None FINDINGS: Ultrasound guidance for PICC line placement. IMPRESSION: Ultrasound guidance for PICC line placement. RPTAT: AA .Vic Shaffer MD, MD Date Time Electronically viewed and signed by .Vic Shaffer MD, on 10/10/2016 11:56 .S/
--- NOTE | 2016-10-10 11:56 | RADRPT ---
PROCEDURE: XR Chest. CLINICAL INDICATION: PICC line placement TECHNIQUE: Single frontal view of the chest was obtained COMPARISON: 09/04/2016 FINDINGS: There is a new right-sided PICC line in place with its tip extending towards the right jugular vein. There is an endotracheal tube 2 cm above the iván. There is mild cardiomegaly. There are mild bibasilar atelectatic changes. The patient is status post heart valve replacement an d sternotomy. RPTAT: AA IMPRESSION: New PICC line with its tip extending towards the right jugular vein. Endotracheal tube in appropriate position. .Vic Shaffer MD, MD Date Time Electronically viewed and signed by .Vic Shaffer MD, MD on 10/10/2016 11:55 .S/
--- NOTE | 2016-10-10 11:57 | RADRPT ---
PROCEDURE: XR Chest. CLINICAL INDICATION: PICC line placement TECHNIQUE: Single frontal view of the chest was obtained COMPARISON: Same day FINDINGS: There is a new right-sided PICC line in place with its tip overlying the cavoatrial junction. The heart, mediastinum, and lungs are unchanged. There is an endotracheal tube in appropriate position. There is mild cardiomegaly. There are bibasilar atelectatic changes and small bilateral pleural effusions. RPTAT: AA IMPRESSION: New PICC line in appropriate position. Bibasilar atelectatic changes and small bilateral pleural effusions. Mild cardiomegaly. .Vic Shaffer MD, MD Date Time Electronically viewed and signed by .Vic Shaffer MD, on 10/10/2016 11:57 .S/
--- NOTE | 2016-10-10 12:10 | CONS ---
Date/Time of Note Date/Time of Note DATE: 10/10/16 TIME: 12:04 Assessment/Plan Assessment/Plan Additional Assessment/Plan Chest x-ray was reviewed from yesterday which is showing mild pulmonary vascular congestion. Endotracheal tube is at an adequate level. Patient is currently on propofol drip at 20 mics per kilo per minute, IV heparin by protocol . Ventilator settings; AC of 20, tidal volume 500, PEEP of 0, 40% FiO2. Assessment recommendations; 1. Patient admitted for cardiac arrest status post along CPR. 2. Myoclonic jerking which is poor prognostic indicator indicative of underlying anoxic brain injury. 3. Renal insufficiency. 4. Multiple other comorbidities including prior valvular replacement 2, diabetes, renal insufficiency, atrial fibrillation. Continue current supportive care. Add Depakote 5 mg every 12 hours. Monitor renal function. Continue Keppra for now. Continue propofol drip as well. Prognosis is guarded. Consultation Date/Type/Reason Admit Date/Time 10/09/16 0348 Date of Consultation: Oct 10, 2016 Type of Consultation: Pulmonary/critical care Reason for Consultation Pulmonary consultation requested for respiratory failure. History presenting any; patient is a 75-year-old white male who was brought into the emergency room yesterday after sustaining cardiac arrest at home the patient had along CPR done was intubated and brought to the hospital. Because of history of atrial fibrillation and patient being on anticoagulation patient did not meet criteria for hypothermia protocol. By the time I saw the patient is still in ER orally intubated and having what appears to be myoclonic jerking. History was obtained from medical records. Past medical history; 1.Patient with history of coronary artery bypass surgery 2 history of [place] 3 renal insufficiency 4 atrial fibrillation 5. Chronic anticoagulation use. 6. Diabetes. 7. History of CHF. 8. History of cholecystectomy. Medications; were reviewed. Allergies; are none. Family history; patient apparently has a daughter. Occupational history; not available. Review of systems; unable to be obtained. General exam; elderly male, orally, intubated having myoclonic jerking. Past Medical History Medical History: diabetes Social History Smoking Status: Unknown if ever smoked Exam/Review of Systems Vital Signs Vitals Vital Signs Date Time Temp Pulse Resp B/P Pulse Ox O2 Delivery O2 Flow Rate FiO2 10/10/16 10:30 98.3 87 20 95/62 100 Mechanical Ventilator 10/10/16 09:00 40 Intake and Output 10/09/16 10/09/16 10/10/16 15:00 23:00 07:00 Intake Total 100 ml 1150 ml Output Total 1930 ml Balance 100 ml -780 ml Exam HEENT examination; supple neck, no JVD. No lymphadenopathy. Midline trachea. Pupils are midsize and nonreactive to light. Patient has a left intraocular ocular lens implant. Patient has a multiple carious teeth. Orally intubated. Chest examination; diminished but clear vessel. S1-S2 audible, irregular rhythm. No murmurs. There is a well-healed sternal scar. Abdomen examination; soft, nondistended, no organomegaly. There is a well- healed right upper quadrant scar. Extremity examination; no peripheral edema. 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 Results Result Diagram: 10/10/16 0525 10/10/16 0525 Results 24 hrs Laboratory Tests Test 10/09/16 14:08 10/09/16 14:40 10/09/16 17:30 10/09/16 21:55 Bedside Glucose 102 143 147 Creatine Kinase 267 H Creatine Kinase Index 3.2 Creatinine Kinase MB (Mass) 8.52 H Troponin I 1.120 *H Test 10/10/16 00:05 10/10/16 05:19 10/10/16 05:25 10/10/16 07:00 White Blood Count 12.9 H 11.6 H Red Blood Count 3.37 L 3.28 L Hemoglobin 10.3 L 10.4 L Hematocrit 33.0 L 32.2 L Mean Corpuscular Volume 97.9 98.2 Mean Corpuscular Hemoglobin 30.6 31.7 Mean Corpuscular Hemoglobin Concent 31.2 L 32.3 Red Cell Distribution Width 17.1 H 17.2 H Platelet Count 104 L 93 L Mean Platelet Volume 11.0 H 11.0 H Neutrophils % 89.8 H 88.5 H Lymphocytes % 2.2 L 3.0 L Monocytes % 7.1 7.8 Eosinophils % 0.1 0.2 Basophils % 0.2 0.2 Nucleated Red Blood Cells % 0.0 0.0 Neutrophils # 11.6 H 10.3 H Lymphocytes # 0.3 L 0.4 L Monocytes # 0.9 0.9 Eosinophils # 0.0 0.0 Basophils # 0.0 0.0 Nucleated Red Blood Cells # 0.0 0.0 Prothrombin Time 20.1 H Prothrombin Time Ratio 1.6 INR International Normalized Ratio 1.70 Activated Partial Thromboplast Time 35.4 H 143.6 *H Bedside Glucose 122 Sodium Level 148 H Potassium Level 3.4 L Chloride Level 112 H Carbon Dioxide Level 23 Anion Gap 16 Blood Urea Nitrogen 37 H Creatinine 1.47 H Glucose Level 131 # Calcium Level 8.6 Phosphorus Level 4.4 Magnesium Level 2.0 Test 10/10/16 10:11 Bedside Glucose 126 Medications Medications Current Medications Eye Lubricant (Artificial Tears Oph) 1 drop TID BOTH EYES Last administered on 10/10/16 10:22; Admin Dose 1 DROP; Start 10/09/16 at 09:00 Famotidine (Pepcid Iv) 20 mg DAILY IV Last administered on 10/10/16 10:19; Admin Dose 20 MG; Start 10/09/16 at 09:00 Miscellaneous Information 1 ea NOTE XX ; Start 10/09/16 at 05:30 Glucose (Glutose) 15 gm Q15M PRN PO DECREASED GLUCOSE; Start 10/09/16 at 05:30 Glucose (Glutose) 22.5 gm Q15M PRN PO DECREASED GLUCOSE; Start 10/09/16 at 05: 30 Dextrose (D50w Syringe) 25 ml Q15M PRN IV DECREASED GLUCOSE; Start 10/09/16 at 05:30 Dextrose (D50w Syringe) 50 ml Q15M PRN IV DECREASED GLUCOSE; Start 10/09/16 at 05:30 Glucagon (Glucagen) 1 mg Q15M PRN IM DECREASED GLUCOSE; Start 10/09/16 at 05:30 Glucose (Glutose) 15 gm Q15M PRN BUCCAL DECREASED GLUCOSE; Start 10/09/16 at 05 :30 Diagnostic Test (Pha) 1 ea 1 ea 02 XX Last administered on 10/09/16 08:39; Admin Dose 1 EA; Start 10/10/16 at 02:00 Levetiracetam (Keppra 500 Mg/ 100ml (Pmx)) 100 ml @ 400 mls/hr Q12 IVPB Last administered on 10/10/16 10:14; Admin Dose 400 MLS/HR; Start 10/09/16 at 21:00 Acetaminophen (Tylenol Supp) 650 mg Q6H PRN AR fever Last administered on 00:36; Admin Dose 650 MG; Start 10/09/16 at 13:00 Aspirin 81 mg 81 mg DAILY PO ; Start 10/10/16 at 09:00 Propofol (Diprivan) 100 ml @ 0 mls/hr TITRATE IV ; Start 10/10/16 at 01:00 Insulin Aspart (Novolog Insulin Pen) (Adult SC Insulin - Mild Algorithm)... Q4 SC ; Start 10/10/16 at 05:00 Miscellaneous Information 1 ea NOTE XX ; Start 10/10/16 at 02:00 Glucose (Glutose) 15 gm Q15M PRN PO DECREASED GLUCOSE; Start 10/10/16 at 02:00 Glucose (Glutose) 22.5 gm Q15M PRN PO DECREASED GLUCOSE; Start 10/10/16 at 02: 00 Dextrose (D50w Syringe) 25 ml Q15M PRN IV DECREASED GLUCOSE; Start 10/10/16 at 02:00 Dextrose (D50w Syringe) 50 ml Q15M PRN IV DECREASED GLUCOSE; Start 10/10/16 at 02:00 Glucagon (Glucagen) 1 mg Q15M PRN IM DECREASED GLUCOSE; Start 10/10/16 at 02:00 Glucose 15 gm 15 gm Q15M PRN BUCCAL DECREASED GLUCOSE; Start 10/10/16 at 02:00 Sodium Chloride (NS) 1,000 ml @ 125 mls/hr Q8H IV Last administered on 07:29; Admin Dose 125 MLS/HR; Start 10/10/16 at 07:30 MARIE LYNCH Oct 10, 2016 12:10
[2016-10-10] MEDS ORDERED: DIVALPROEX (EC) 500 MG TAB PO ONE (13:30)
--- NOTE | 2016-10-10 14:13 | CONS ---
DATE OF ADMISSION: 10/09/2016 DATE OF CONSULTATION: 10/10/2016 REASON FOR CONSULTATION: Positive troponin consistent with non-ST elevation myocardial infarction. REQUESTING PHYSICIAN: Dr. Gonzalez from the hospitalist service. This is an interventional cardiology consultation for [id number] myocardial infarction. HISTORY OF PRESENT ILLNESS: Mr. Barahona is a 75-year-old male with a history of prior cardi ac arrest status post left heart catheterization during that time, July 2016, revealing no signi ficant obstructive disease and a preserved left ventricular ejection fraction. He now represents [facility] post cardiopulmonary arrest. Per daughter, she was visiting with her parents and her dad was h aving shortness of breath using an inhaler. When she went to leave, she said her mother yelled for her. She ran back in the house and they had found her father down on the furniture with the inhale r near his mouth. Paramedics were called and he was brought to [facility] emergen cy department. Paramedics had prior to arrival, given the patient a dose of epinephrine with retu rn of spontaneous circulation. Upon arrival in the emergency department, patient required emergent intubation and since this time has been treated with heparin for atrial fibrillation. The patient's electrocardiogram revealed atrial fibrillation rate 86 with normal axis and diffuse nonspecific ST and T-wave abnormalities. The patient's labs were notable for white blood count of 10, hemoglobin 1 2.2, platelet count 142. A sodium 142, potassium 5.1, creatinine 1.33, AST 122, ALT of 87. Troponi n initially negative and then increased to 0.285, and then later on in the afternoon up to 1.12 and an INR of 1.7. The patient at this time remains intubated on heparin, no pressure support with bord dustin blood pressures in the 90s, heart rate 80s, atrial fibrillation. PAST MEDICAL HISTORY: As above in HPI. MEDICATIONS CURRENTLY IN HOSPITAL: 1. Depakote 5 mg x1. 2. Aspirin 81 mg daily. 3. Sodium chloride 125 mg IV. 4. Propofol IV. 5. Heparin IV. 6. Keppra 400 q.12. 7. Albuterol. 8. Tylenol p.r.n. 9. Pepcid 20 mg IV daily. ALLERGIES: NO KNOWN DRUG ALLERGIES. SOCIAL HISTORY: No tobacco, ETOH or illicit drug use. FAMILY HISTORY: No history of cardiac or early CAD. REVIEW OF SYSTEMS: As above in HPI. CONSTITUTIONAL: No fevers, chills. PULMONARY: No current shortness of breath. CARDIOVASCULAR: No current signs of respiratory compromise, but positive troponins. GASTROINTESTINAL: No vomiting. GENITOURINARY: No hematuria. MUSCULOSKELETAL: Degenerative joint disease. PSYCHIATRIC: No documented psychiatric history. NEUROLOGIC: Encephalopathy. PHYSICAL EXAMINATION: VITAL SIGNS: Temperature 97.9, blood pressure 130/64, pulse 82, respiratory rate 20, saturating 94% . GENERAL: The patient is sedated and intubated. NECK: JVP approximately 9 cm water. CHEST: Upper airway transmitted rhonchus sounds. HEART: Irregularly irregular, I/ systolic murmur, nondisplaced PMI. ABDOMEN: Positive bowel sounds, soft. EXTREMITIES: Trace edema 1+ pulses, bilaterally posterior tibial. LABORATORY DATA: As above in HPI with most recently from today, white count 11.6, hemoglobin 10.4, platelet count 93. Sodium 148, potassium 3.4, creatinine 1.47, BUN of 37, PTT of 143. IMAGING STUDIES: As above in HPI with a head CT from the revealing no evidence of acute intrac ranial pathology and a chest x-ray from the revealing mild pulmonary vascular congestion. IMPRESSION: 1. Positive troponins/non-ST elevation myocardial infarction, likely secondary to the patient's car diopulmonary arrest, as the patient has had recent left heart catheterization July 2016 revealin g no significant obstructive disease. 2. 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 3. Abnormal electrocardiogram with diffuse nonspecific ST and T-wave abnormalities, likely due to t he patient's circulation arrest. 4. Respiratory failure, status post intubation. 5. Encephalopathy. 6. History of mitral valve replacement with bioprosthesis. 7. Atrial fibrillation on heparin. Coagulopathy secondary to prior Coumadin therapy as an outpatie nt. 8. Hypotension, borderline. 9. Diabetes mellitus. 10. Anemia. 11. Renal failure. RECOMMENDATIONS: 1. At this time, would maintain patient on telemetry monitoring, following rhythm and rate control closely. 2. Continue the patient's heparin at this time and will continue to trend the patient's cardiac enz ymes. 3. Check serial EKGs to assess for any significant ongoing changes. 4. Continue to follow the patient's mental status closely. 5. Continue the patient's aspirin for prophylaxis against further cardiovascular events. 6. Further workup and treatment of patient's ongoing clinical issues including ongoing treatment of respiratory issues per PMD and alternative consultations, and will continue to follow the patient's volume status closely. Thank you for allowing me to take part in the care of this patient. I will continue to follow along very closely with you. Further recommendations will be made as the patient progresses through his inpatient hospital clinical course. Dictated By: ESTEFANI SERNA/SUDHAKAR Conf#: [id number] DID#: [id number] CC: JERRY GONZALEZ MD;*EndCC*
[2016-10-10] MEDS ORDERED: VALPROIC ACID LIQUID CUP 250 MG/5 ML CUP PO SCH (14:30)
[2016-10-10] MEDS: ASPIRIN 81 MG TAB PO SCH (14:40)
[2016-10-10] MEDS ORDERED: LORAZEPAM 2 MG INJ IV ONE (15:00)
[2016-10-10] MEDS: ALBUTEROL 18 GM INHALER INH PRN ×2 (16:23→20:15)
[2016-10-10] MEDS ORDERED: SOD CHLORIDE 0.9% 100 ML ONE (17:38)
[2016-10-10 18:19] LABS: INR 1.59; PROTIME 19.1 Sec (12.2-14.2); PT RATIO 1.5
[2016-10-10 18:20] LABS: PARTIAL THROMBOPLASTIN TIME 57.7 Sec (25.0-35.0)
[2016-10-10 18:47] LABS: CK-MB 1.74 ng/ml (0.0-2.4)
[2016-10-10 18:52] LABS: TROPONIN-I 0.17 ng/ml (0.00-0.12)
[2016-10-10] MEDS: NS + KCL 20 MEQ 1,000 ML IV SCH (21:20)
--- NOTE | 2016-10-10 23:22 | CONS ---
DATE OF ADMISSION: 10/10/2016 DATE OF CONSULTATION: 10/10/2016 TYPE OF CONSULTATION: Internal medicine. CHIEF COMPLAINT AND HISTORY OF PRESENT ILLNESS: The patient is a 75-year-old gentleman who had been seen in my office a couple of weeks back with a complicated medical history with status post cardia c arrest in 07/2016 when he was hospitalized at [facility] when he presented with acute hyp oxic respiratory failure and congestive heart failure, and patient did have coronary angiogram which did not show any evidence of significant severe disease. Respiratory failure was considered second yudith to severe COPD with possible demand ischemia, and he was subsequently re-admitted with hemoptysi s on 08/20 and discharged and was felt to be related to Coumadin. The patient was seen by me in my office about 2 weeks ago, and he was felt to have an acute bronchitis and had been given a course of Zithromax recently. Chest x-ray done 2 weeks ago did not show any evidence of pneumonia, and the p atient was reaching for his nebulizer and apparently collapsed and had respiratory failure and had b een resuscitated by his daughter and was brought to the emergency room, presumed to have cardiac arr est and had been intubated. The patient has been a heavy smoker. MEDICATIONS: Include: 1. Albuterol inhaler. 2. Combivent 1 puff q.i.d. 3. Ferrous sulfate 325 mg p.o. t.i.d. 4. Coumadin 7.5 mg p.o. daily. 5. Atorvastatin 20 mg daily. 6. Digoxin 0.125 mg daily. 7. Metoprolol 25 mg b.i.d. 8. Aspirin 81 mg daily. 9. Gabapentin 200 mg t.i.d. 10. Sertraline 100 mg daily. 11. Lasix 40 mg daily. 12. Singulair 10 mg daily. 13. Pantoprazole 40 mg p.o. daily. 14. NovoLog insulin. 15. Lantus insulin. REVIEW OF SYSTEMS: Unable to obtain from the patient at this time. PAST MEDICAL HISTORY: The patient has had a prior history of aortic and mitral valve replacement, h istory of CVA, COPD. ALLERGIES: NO KNOWN ALLERGIES. FAMILY HISTORY: No history of premature coronary artery disease. PHYSICAL EXAMINATION: GENERAL: The patient is intubated, sedated. VITAL SIGNS: Temperature 97.9, blood pressure 130/64. Heart rate 84 per minute, regular. HEENT: Head normocephalic. Mild pallor without cyanosis. Tongue is coated, dry. NECK: Supple. No thyromegaly, bruits, lymphadenopathy. CHEST: Transmitted sounds from upper airway with rhonchi. HEART: S1, S2 heard with no definite gallops. II/ mid systolic murmur without conduction. ABDOMEN: Soft, nontender. No hepatosplenomegaly. EXTREMITIES: No edema. Pedals poorly palpable. Homans sign is negative. LABORATORY: WBC count 11.6, hematocrit 32.2, platelet count 93,000. Sodium 148, potassium 3.4, BUN 37, creatinine 1.47. Troponin 0.17. Glucose 144. IMAGING: Chest x-ray shows mild pulmonary vascular congestion. CT of the brain showed no evidence of acute intracranial pathology, atrophy. IMPRESSION: 1. Status post cardiopulmonary arrest with non-ST elevation myocardial infarction. 2. Congestive heart failure, diastolic, acute on chronic, status post mitral and aortic valve repla cements. 3. Underlying chronic obstructive pulmonary disease. 4. Atrial fibrillation, presently on heparin. 5. Diabetes mellitus type 2. 6. Mild anemia. 7. Possible aspiration. 8. The patient does have some myoclonic jerking, rule out ischemic brain injury. PLAN: The patient will be admitted to the intensive care unit. Continue seizure precautions, mecha nical ventilation. Cardiac recommendations per Dr. Ramirez. Gastrointestinal prophylaxis. Continu e ceftriaxone for now, observe for sepsis. Closely monitor blood glucose levels, treat with NovoLog insulin. His overall prognosis is guarded. Dictated By: ALEXANDR MOULTON MD, SR/NTS Conf#: [id number] DID#: [id number]
[2016-10-11] VITALS (55 sets, daily range): BP systolic 92–145; BP diastolic 57–95; PULSE 83–108; RESP 18–39
[2016-10-11] MEDS: Insulin NOVOLOG SS MILD Algorithm (NPO/TPN/ENTERAL FEEDS) SC SCH ×6 (01:09→21:01)
[2016-10-11 01:18] LABS: INR 1.41; PROTIME 17.3 Sec (12.2-14.2); PT RATIO 1.4
[2016-10-11 01:19] LABS: PARTIAL THROMBOPLASTIN TIME 42.9 Sec (25.0-35.0)
[2016-10-11] MEDS: HEPARIN 1000 UNITS/ML 10 ML INJ IV PRN (01:46)
[2016-10-11 01:59] LABS: TROPONIN-I 0.105 ng/ml (0.00-0.12)
[2016-10-11] MEDS: ACCUCHECK AT 2AM (Patients on SS coverage) XX SCH (02:00)
[2016-10-11 02:36] LABS: CK-MB 1.76 ng/ml (0.0-2.4)
[2016-10-11] MEDS: ALBUTEROL 18 GM INHALER INH PRN ×4 (04:09→19:29)
[2016-10-11] MEDS: NS + KCL 20 MEQ 1,000 ML IV SCH (04:30)
[2016-10-11 04:46] LABS: ADD SCAN DIFF NO
[2016-10-11 05:05] LABS: INR 1.55; PROTIME 18.7 Sec (12.2-14.2); PT RATIO 1.5
[2016-10-11 05:06] LABS: ABNORMAL IP MESSAGE 1; BASOPHILS % 0.4 % (0.0-2.0); EOSINOPHILS # 0.1 10^3/ul (0.0-0.5); EOSINOPHILS % 0.7 % (0.0-7.0); HEMATOCRIT 31.3 % (42.0-52.0); LYMPHOCYTES # 0.3 10^3/ul (0.8-2.9); LYMPHOCYTES % 2.8 % (15.0-51.0); MEAN CORPUSCULAR HEMOGLOBIN 31.5 pg (29.0-33.0); MEAN CORPUSCULAR HGB CONC 31.9 g/dl (32.0-37.0); MEAN CORPUSCULAR VOLUME 98.7 fl (82.0-101.0); MEAN PLATELET VOLUME 11.9 fl (7.4-10.4); MONOCYTE # 0.8 10^3/ul (0.3-0.9); MONOCYTES % 7.5 % (0.0-11.0); NEUTROPHIL # 9.9 10^3/ul (1.6-7.5); NEUTROPHILS % 88.1 % (39.0-77.0); PLATELET COUNT 103 10^3/UL (140-415); RED BLOOD COUNT 3.17 10^6/ul (4.70-6.10); RED CELL DISTRIBUTION WIDTH 17.7 % (11.5-14.5); WHITE BLOOD COUNT 11.2 10^3/ul (4.8-10.8)
[2016-10-11 05:07] LABS: POTASSIUM 3.4 mmol/L (3.5-5.1)
[2016-10-11 05:10] LABS: CREATININE 1.14 mg/dl (0.61-1.24)
[2016-10-11 05:11] LABS: CALCIUM 8.6 mg/dl (8.4-10.2); MAGNESIUM 2.1 mg/dl (1.7-2.5)
[2016-10-11] MEDS: SOD CHLORIDE 0.9% 1,000 ML IV SCH ×3 (06:11→23:30)
[2016-10-11 07:28] LABS: CHOL/HDL RATIO 1.9 RATIO
[2016-10-11] MEDS: FAMOTIDINE 20 MG INJ IV SCH (09:23)
[2016-10-11] MEDS: ARTIFICIAL TEARS 15 ML OPH BOTH EYES SCH ×3 (09:23→20:54)
[2016-10-11] MEDS: ASPIRIN 81 MG TAB PO SCH ×2 (09:23→09:30)
--- NOTE | 2016-10-11 10:03 | RADRPT ---
PROCEDURE: XR Chest. CLINICAL INDICATION: CHF TECHNIQUE: Single frontal view of the chest was obtained. COMPARISON: Chest x-ray from 10/10/2016 FINDINGS: The endotracheal tube and right-sided PICC line are unchanged in position. There has been interval placement of an enteric tube which projects just past the diaphragm. Sternotomy wires and a prosthetic cardiac valve are again noted. There are stable low lung volumes and small bilateral pleural effusions as well as compressive bibas ilar atelectasis. IMPRESSION: Interval placement of an enteric tube which projects just past the diaphragm. Recommend advancement by 2-3 cm. Otherwise, no significant interval change. These findings were discussed with the nurse taking care of the patient, Kim, over the phone on 09/18 at 1000 hours . RPTAT: EE Physician Cyndi Date Time Electronically viewed and signed by Physician Cyndi on 10/11/2016 10:02 /
[2016-10-11] MEDS: LEVETIRACETAM 500 MG (PMX) 100 ML IVPB SCH ×2 (10:34→20:54)
--- NOTE | 2016-10-11 12:14 | PN ---
DATE: SUBJECTIVE: Patient is sedated, intubated on mechanical ventilation in the ICU. VITAL SIGNS: Blood pressure 113/66, respiration 20 per minute, pulse 100 per minute, regular. Afeb rile. HEENT: Head normocephalic. No definite pallor, cyanosis. CHEST: Few wheezes heard anteriorly. HEART: S1, S2 heard with no definite gallops. ABDOMEN: Soft, nontender, no hepatosplenomegaly. Bowel sounds are active. EXTREMITIES: No edema. Extremities warm. INR was 1250 in, 1930 out. LABORATORY DATA: Sodium 149, potassium 3.4, BUN 32, creatinine 1.14. WBC count 11.2, hematocrit 31 .3, platelet count 103, blood glucose levels 155, 140 and 140 this morning. Cholesterol 78, LDL 12, HDL 41. IMPRESSION: 1. Status post cardiopulmonary arrest with non-ST elevation myocardial infarction with mild congest hernan heart failure, diastolic, acute on chronic. 2. Status post mitral and aortic valve replacements. 3. Severe chronic obstructive pulmonary disease. 4. History of atrial fibrillation, presently on heparin. 5. Diabetes mellitus type 2, well controlled. 6. Mild anemia. 7. Query seizure disorder. The patient did have evidence of myoclonic jerks when I examined him ye sterday in the emergency room. 8. Hypernatremia. 9. Hypokalemia. PLAN: Increase free water intake, replace potassium. Obtain urine cultures, blood cultures as need ed. Continue mechanical ventilation, pulmonary management per Dr. Piedra. Monitor for sepsis. Discussed the patient's condition with the patient's daughter at bedside, his overall prognosis is g uarded. Dictated By: ALEXANDR MOULTON MD, SR/NTS Conf#: [id number] DID#: [id number]
--- NOTE | 2016-10-11 12:28 | CONS ---
Date/Time of Note Date/Time of Note DATE: 10/11/16 TIME: 12:26 Assessment/Plan Assessment/Plan Additional Assessment/Plan 1. Positive troponins/non-ST elevation myocardial infarction, likely secondary to the patient's cardiopulmonary arrest, as the patient has had recent left heart catheterization July 2016 revealing no significant obstructive disease - MED rx for now. 2. 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 3. Abnormal electrocardiogram with diffuse nonspecific ST and T-wave abnormalities, likely due to the patient's circulation arrest. 4. Respiratory failure, status post intubation - con't to follow, off sedation - will monitor neuro fxn now. 5. Encephalopathy. 6. History of mitral valve replacement with bioprosthesis. Heparin gtt now. 7. Atrial fibrillation on heparin. Coagulopathy secondary to prior Coumadin therapy as an outpatient. 8. Hypotension, borderline. 9. Diabetes mellitus. 10. Anemia. 11. Renal failure. Consultation Date/Type/Reason Admit Date/Time Oct 10, 2016 at 03:49 Initial Consult Date 10/10/16 Type of Consultation: Pulmonary/critical care 24 HR Interval Summary Free Text/Dictation NO acute events - still critically ill. ROS: No fever, no chills, no nausea, no vomiting, no diarrhea/constipation No recent weight changes No chest pain, no PND, no orthopnea No dizziness, blurred vision No thirst, no heat or cold intolerance (per nurse - pt does not respond) Exam/Review of Systems Vital Signs Vitals Vital Signs Date Time Temp Pulse Resp B/P Pulse Ox O2 Delivery O2 Flow Rate FiO2 10/11/16 09:10 97 20 100 35 10/11/16 06:15 113/66 10/11/16 04:15 98.6 10/10/16 18:30 Mechanical Ventilator Intake and Output 10/10/16 10/10/16 10/11/16 15:00 23:00 07:00 Intake Total 100 ml 125 ml 132.8 ml Output Total 700 ml Balance 100 ml -575 ml 132.8 ml Exam General: WN/WD/NAD, AOx 0 HEENT: Unicetric/atraumatic/EOMI (does not follow commands) NECK: JVD elevated, no thyromegaly, intub Lymph: no lymphadenopathy HEART: IRregular with no S3, II/ systolic murmur at apex LUNGS: Coarse sounds ABD: soft, NT, ND, +BS : Intact Neuro: non focal SKIN: chronic changes EXT: trace edema Results Result Diagram: 10/11/16 0400 10/11/16 0400 Results 24 hrs Laboratory Tests Test 10/10/16 13:00 10/10/16 16:12 10/10/16 17:50 10/10/16 18:22 Activated Partial Thromboplast Time 65.6 H 57.7 H Bedside Glucose 141 144 Prothrombin Time 19.1 H Prothrombin Time Ratio 1.5 INR International Normalized Ratio 1.59 Creatine Kinase 170 Creatine Kinase Index 1.0 Creatinine Kinase MB (Mass) 1.74 Troponin I 0.170 *H Test 10/10/16 20:42 10/11/16 00:35 10/11/16 00:55 10/11/16 01:10 Bedside Glucose 142 143 Prothrombin Time 17.3 H Prothrombin Time Ratio 1.4 INR International Normalized Ratio 1.41 Activated Partial Thromboplast Time 42.9 H Creatine Kinase 159 Creatine Kinase Index 1.1 Creatinine Kinase MB (Mass) 1.76 Troponin I 0.105 Test 10/11/16 03:10 10/11/16 04:00 10/11/16 06:07 10/11/16 09:18 Bedside Glucose 153 140 140 White Blood Count 11.2 H Red Blood Count 3.17 L Hemoglobin 10.0 L Hematocrit 31.3 L Mean Corpuscular Volume 98.7 Mean Corpuscular Hemoglobin 31.5 Mean Corpuscular Hemoglobin Concent 31.9 L Red Cell Distribution Width 17.7 H Platelet Count 103 L Mean Platelet Volume 11.9 H Neutrophils % 88.1 H Lymphocytes % 2.8 L Monocytes % 7.5 Eosinophils % 0.7 Basophils % 0.4 Nucleated Red Blood Cells % 0.0 Neutrophils # 9.9 H Lymphocytes # 0.3 L Monocytes # 0.8 Eosinophils # 0.1 Basophils # 0.0 Nucleated Red Blood Cells # 0.0 Prothrombin Time 18.7 H Prothrombin Time Ratio 1.5 INR International Normalized Ratio 1.55 Activated Partial Thromboplast Time Pending Sodium Level 149 H Potassium Level 3.4 L Chloride Level 116 H Carbon Dioxide Level 21 Anion Gap 15 Blood Urea Nitrogen 32 H Creatinine 1.14 Glucose Level 155 Calcium Level 8.6 Magnesium Level 2.1 Triglycerides Level 125 Cholesterol Level 78 L LDL Cholesterol, Calculated 12 HDL Cholesterol 41 Cholesterol/HDL Ratio 1.9 Test 10/11/16 09:45 Activated Partial Thromboplast Time 85.0 *H Medications Medications Current Medications Eye Lubricant (Artificial Tears Oph) 1 drop TID BOTH EYES Last administered on 10/11/16 09:23; Admin Dose 1 DROP; Start 10/09/16 at 09:00 Famotidine (Pepcid Iv) 20 mg DAILY IV Last administered on 10/11/16 09:23; Admin Dose 20 MG; Start 10/09/16 at 09:00 Miscellaneous Information 1 ea NOTE XX ; Start 10/09/16 at 05:30 Glucose (Glutose) 15 gm Q15M PRN PO DECREASED GLUCOSE; Start 10/09/16 at 05:30 Glucose (Glutose) 22.5 gm Q15M PRN PO DECREASED GLUCOSE; Start 10/09/16 at 05: 30 Dextrose (D50w Syringe) 25 ml Q15M PRN IV DECREASED GLUCOSE; Start 10/09/16 at 05:30 Dextrose (D50w Syringe) 50 ml Q15M PRN IV DECREASED GLUCOSE; Start 10/09/16 at 05:30 Glucagon (Glucagen) 1 mg Q15M PRN IM DECREASED GLUCOSE; Start 10/09/16 at 05:30 Glucose (Glutose) 15 gm Q15M PRN BUCCAL DECREASED GLUCOSE; Start 10/09/16 at 05 :30 Diagnostic Test (Pha) 1 ea 1 ea 02 XX Last administered on 10/09/16 08:39; Admin Dose 1 EA; Start 10/10/16 at 02:00 Levetiracetam (Keppra 500 Mg/ 100ml (Pmx)) 100 ml @ 400 mls/hr Q12 IVPB Last administered on 10/11/16 10:34; Admin Dose 400 MLS/HR; Start 10/09/16 at 21:00 Acetaminophen (Tylenol Supp) 650 mg Q6H PRN MD fever Last administered on 17:20; Admin Dose 650 MG; Start 10/09/16 at 13:00 Aspirin 81 mg 81 mg DAILY PO Last administered on 10/11/16 09:23; Admin Dose 81 MG; Start 10/10/16 at 09:00 Propofol (Diprivan) 100 ml @ 0 mls/hr TITRATE IV ; Start 10/10/16 at 01:00 Insulin Aspart (Novolog Insulin Pen) (Adult SC Insulin - Mild Algorithm)... Q4 SC Last administered on 10/11/16 01:09; Admin Dose 1 UNIT; Start 10/10/16 at 05:00 Miscellaneous Information 1 ea NOTE XX ; Start 10/10/16 at 02:00 Glucose (Glutose) 15 gm Q15M PRN PO DECREASED GLUCOSE; Start 10/10/16 at 02:00 Glucose (Glutose) 22.5 gm Q15M PRN PO DECREASED GLUCOSE; Start 10/10/16 at 02: 00 Dextrose (D50w Syringe) 25 ml Q15M PRN IV DECREASED GLUCOSE; Start 10/10/16 at 02:00 Dextrose (D50w Syringe) 50 ml Q15M PRN IV DECREASED GLUCOSE; Start 10/10/16 at 02:00 Glucagon (Glucagen) 1 mg Q15M PRN IM DECREASED GLUCOSE; Start 10/10/16 at 02:00 Glucose 15 gm 15 gm Q15M PRN BUCCAL DECREASED GLUCOSE; Start 10/10/16 at 02:00 Sodium Chloride (NS) 1,000 ml @ 125 mls/hr Q8H IV Last administered on 16:48; Admin Dose 125 MLS/HR; Start 10/10/16 at 07:30 IV Flush (NS 10 ml) 10 ml PRN PRN IV IV PROTOCOL; Start 10/10/16 at 12:30 Albuterol 4 puff 4 puff Q4 PRN INH for wheezing Last administered on 10/11/16 09:09; Admin Dose 4 PUFF; Start 10/10/16 at 13:30 Potassium Chloride/Sodium Chloride (KCl/1/2 NS) 1,020 ml @ 75 mls/hr [id number] IV ; Start 10/11/16 at 12:00 BEATA PENA MD Oct 11, 2016 12:28
--- NOTE | 2016-10-11 12:45 | CONS ---
Date/Time of Note Date/Time of Note DATE: 10/11/16 TIME: 12:42 Consult Date/Type/Reason Admit Date/Time Oct 10, 2016 at 03:49 Initial Consult Date 10/10/16 Type of Consultation: Pulmonary/critical care Subjective Patient continues intubation and sedation mechanical ventilation Remains largely somnolent Objective Vital Signs Date Time Temp Pulse Resp B/P Pulse Ox O2 Delivery O2 Flow Rate FiO2 10/11/16 09:10 97 20 100 35 10/11/16 06:15 113/66 10/11/16 04:15 98.6 10/10/16 18:30 Mechanical Ventilator Intake and Output 10/10/16 10/10/16 10/11/16 15:00 23:00 07:00 Intake Total 100 ml 125 ml 132.8 ml Output Total 700 ml Balance 100 ml -575 ml 132.8 ml Exam PHYSICAL EXAMINATION GENERAL: Elderly gentleman, intubated on mechanical ventilation. Orally intubated. VITAL SIGNS: see below. HEENT: Pupils equal, round, and reactive to light. CARDIAC: S1, S2, tachycardia. CHEST: Diminished air entry bilaterally. ABDOMEN: Mildly distended. Decreased bowel sounds no guarding or rebound EXTREMITIES: No cyanosis, clubbing or edema. NEUROLOGIC: No focal deficits. Results/Medications Result Diagram: 10/11/16 0400 10/11/16 0400 Results 24 hrs Laboratory Tests Test 10/10/16 13:00 10/10/16 16:12 10/10/16 17:50 10/10/16 18:22 Activated Partial Thromboplast Time 65.6 H 57.7 H Bedside Glucose 141 144 Prothrombin Time 19.1 H Prothrombin Time Ratio 1.5 INR International Normalized Ratio 1.59 Creatine Kinase 170 Creatine Kinase Index 1.0 Creatinine Kinase MB (Mass) 1.74 Troponin I 0.170 *H Test 10/10/16 20:42 10/11/16 00:35 10/11/16 00:55 10/11/16 01:10 Bedside Glucose 142 143 Prothrombin Time 17.3 H Prothrombin Time Ratio 1.4 INR International Normalized Ratio 1.41 Activated Partial Thromboplast Time 42.9 H Creatine Kinase 159 Creatine Kinase Index 1.1 Creatinine Kinase MB (Mass) 1.76 Troponin I 0.105 Test 10/11/16 03:10 10/11/16 04:00 10/11/16 06:07 10/11/16 09:18 Bedside Glucose 153 140 140 White Blood Count 11.2 H Red Blood Count 3.17 L Hemoglobin 10.0 L Hematocrit 31.3 L Mean Corpuscular Volume 98.7 Mean Corpuscular Hemoglobin 31.5 Mean Corpuscular Hemoglobin Concent 31.9 L Red Cell Distribution Width 17.7 H Platelet Count 103 L Mean Platelet Volume 11.9 H Neutrophils % 88.1 H Lymphocytes % 2.8 L Monocytes % 7.5 Eosinophils % 0.7 Basophils % 0.4 Nucleated Red Blood Cells % 0.0 Neutrophils # 9.9 H Lymphocytes # 0.3 L Monocytes # 0.8 Eosinophils # 0.1 Basophils # 0.0 Nucleated Red Blood Cells # 0.0 Prothrombin Time 18.7 H Prothrombin Time Ratio 1.5 INR International Normalized Ratio 1.55 Activated Partial Thromboplast Time Pending Sodium Level 149 H Potassium Level 3.4 L Chloride Level 116 H Carbon Dioxide Level 21 Anion Gap 15 Blood Urea Nitrogen 32 H Creatinine 1.14 Glucose Level 155 Calcium Level 8.6 Magnesium Level 2.1 Triglycerides Level 125 Cholesterol Level 78 L LDL Cholesterol, Calculated 12 HDL Cholesterol 41 Cholesterol/HDL Ratio 1.9 Test 10/11/16 09:45 Activated Partial Thromboplast Time 85.0 *H Medications Current Medications Eye Lubricant (Artificial Tears Oph) 1 drop TID BOTH EYES Last administered on 10/11/16 09:23; Admin Dose 1 DROP; Start 10/09/16 at 09:00 Famotidine (Pepcid Iv) 20 mg DAILY IV Last administered on 10/11/16 09:23; Admin Dose 20 MG; Start 10/09/16 at 09:00 Miscellaneous Information 1 ea NOTE XX ; Start 10/09/16 at 05:30 Glucose (Glutose) 15 gm Q15M PRN PO DECREASED GLUCOSE; Start 10/09/16 at 05:30 Glucose (Glutose) 22.5 gm Q15M PRN PO DECREASED GLUCOSE; Start 10/09/16 at 05: 30 Dextrose (D50w Syringe) 25 ml Q15M PRN IV DECREASED GLUCOSE; Start 10/09/16 at 05:30 Dextrose (D50w Syringe) 50 ml Q15M PRN IV DECREASED GLUCOSE; Start 10/09/16 at 05:30 Glucagon (Glucagen) 1 mg Q15M PRN IM DECREASED GLUCOSE; Start 10/09/16 at 05:30 Glucose (Glutose) 15 gm Q15M PRN BUCCAL DECREASED GLUCOSE; Start 10/09/16 at 05 :30 Diagnostic Test (Pha) 1 ea 1 ea 02 XX Last administered on 10/09/16 08:39; Admin Dose 1 EA; Start 10/10/16 at 02:00 Levetiracetam (Keppra 500 Mg/ 100ml (Pmx)) 100 ml @ 400 mls/hr Q12 IVPB Last administered on 10/11/16 10:34; Admin Dose 400 MLS/HR; Start 10/09/16 at 21:00 Acetaminophen (Tylenol Supp) 650 mg Q6H PRN [place] fever Last administered on 17:20; Admin Dose 650 MG; Start 10/09/16 at 13:00 Aspirin 81 mg 81 mg DAILY PO Last administered on 10/11/16 09:23; Admin Dose 81 MG; Start 10/10/16 at 09:00 Propofol (Diprivan) 100 ml @ 0 mls/hr TITRATE IV ; Start 10/10/16 at 01:00 Insulin Aspart (Novolog Insulin Pen) (Adult SC Insulin - Mild Algorithm)... Q4 SC Last administered on 10/11/16 01:09; Admin Dose 1 UNIT; Start 10/10/16 at 05:00 Miscellaneous Information 1 ea NOTE XX ; Start 10/10/16 at 02:00 Glucose (Glutose) 15 gm Q15M PRN PO DECREASED GLUCOSE; Start 10/10/16 at 02:00 Glucose (Glutose) 22.5 gm Q15M PRN PO DECREASED GLUCOSE; Start 10/10/16 at 02: 00 Dextrose (D50w Syringe) 25 ml Q15M PRN IV DECREASED GLUCOSE; Start 10/10/16 at 02:00 Dextrose (D50w Syringe) 50 ml Q15M PRN IV DECREASED GLUCOSE; Start 10/10/16 at 02:00 Glucagon (Glucagen) 1 mg Q15M PRN IM DECREASED GLUCOSE; Start 10/10/16 at 02:00 Glucose 15 gm 15 gm Q15M PRN BUCCAL DECREASED GLUCOSE; Start 10/10/16 at 02:00 Sodium Chloride (NS) 1,000 ml @ 125 mls/hr Q8H IV Last administered on 16:48; Admin Dose 125 MLS/HR; Start 10/10/16 at 07:30 IV Flush (NS 10 ml) 10 ml PRN PRN IV IV PROTOCOL; Start 10/10/16 at 12:30 Albuterol 4 puff 4 puff Q4 PRN INH for wheezing Last administered on 10/11/16 09:09; Admin Dose 4 PUFF; Start 10/10/16 at 13:30 Potassium Chloride/Sodium Chloride (KCl/1/2 NS) 1,020 ml @ 75 mls/hr [id number] IV ; Start 10/11/16 at 12:00 Assessment/Plan Chief Complaint/Hosp Course Assessment 1. Cardiopulmonary arrest 2. Probable anoxic brain injury 3. Aspiration pneumonia 4. Hyponatremia with hypokalemia 5. Dysphagia secondary to above Plan 1. Continue mechanical ventilation 2. We'll consider broadening antibiotics 3. Continue to feeding 4. EEG and neurology evaluation 5. DVT GI prophylaxis 6. Free water for correction of hyponatremia Disposition Prognosis guarded Discussed with primary care physician Critical care time 40 minutes Problems: NASH DOUGLASS [facility], [facility] Oct 11, 2016 12:45
[2016-10-11] MEDS: POTASSIUM CHLORIDE 40 MEQ in SOD CHLORIDE 0.45% 1,000 ML IV SCH (13:56)
[2016-10-11 14:32] LABS: PARTIAL THROMBOPLASTIN TIME > 180.0 Sec (25.0-35.0)
--- NOTE | 2016-10-11 15:32 | RADRPT ---
PROCEDURE: XR Abdomen. CLINICAL INDICATION: NG TUBE PLACEMENT TECHNIQUE: AP abdomen x-ray. COMPARISON: None. FINDINGS: The tip of an enteric tube is noted in the stomach. There is a nonobstructive bowel gas pattern. There are no abnormal calcifications overlying the urinary tracts. A likely Rodriguez catheter is noted. There are sternotomy wires as well as prosthetic cardiac valves. There is mild thoracolumbar scoliosis. IMPRESSION: The tip of an enteric tube is noted in the stomach. RPTAT: EE Physician Cyndi Date Time Electronically viewed and signed by Physician Cyndi on 10/11/2016 15:32 /
[2016-10-11] MEDS: HEPARIN 25000 UNITS/250 ML 250 ML IV SCH (15:39)
--- NOTE | 2016-10-11 22:12 | RADRPT ---
Vent Rate: 96 bpm RR Interval: 0 msec HI Interval: 0 msec QRS Duration: 78 msec QT Interval: 330 msec QTC Interval: 416 msec P-R-T [place]: 0 - 86 - 45 degrees SR with 1AVB Nonspecific ST-T changes Abnormal ECG Electronically Signed By: Slade Iverson [id number]
[2016-10-12] VITALS (36 sets, daily range): BP systolic 123–150; BP diastolic 79–94; PULSE 90–105; RESP 16–25
[2016-10-12] MEDS: Insulin NOVOLOG SS MILD Algorithm (NPO/TPN/ENTERAL FEEDS) SC SCH ×6 (01:39→20:32)
[2016-10-12] MEDS: ACCUCHECK AT 2AM (Patients on SS coverage) XX SCH (02:00)
[2016-10-12] MEDS: POTASSIUM CHLORIDE 40 MEQ in SOD CHLORIDE 0.45% 1,000 ML IV SCH ×3 (03:26→19:52)
[2016-10-12 05:30] LABS: ADD SCAN DIFF NO
[2016-10-12 05:38] LABS: ABNORMAL IP MESSAGE 1; BASOPHILS % 0.2 % (0.0-2.0); EOSINOPHILS % 0.2 % (0.0-7.0); HEMATOCRIT 32.9 % (42.0-52.0); HEMOGLOBIN 10.3 g/dl (14.0-18.0); LYMPHOCYTES # 0.4 10^3/ul (0.8-2.9); LYMPHOCYTES % 4.4 % (15.0-51.0); MEAN CORPUSCULAR HEMOGLOBIN 31.2 pg (29.0-33.0); MEAN CORPUSCULAR HGB CONC 31.3 g/dl (32.0-37.0); MEAN CORPUSCULAR VOLUME 99.7 fl (82.0-101.0); MEAN PLATELET VOLUME 11.7 fl (7.4-10.4); MONOCYTE # 0.9 10^3/ul (0.3-0.9); MONOCYTES % 9.1 % (0.0-11.0); NEUTROPHIL # 8.7 10^3/ul (1.6-7.5); NEUTROPHILS % 85.6 % (39.0-77.0); PLATELET COUNT 115 10^3/UL (140-415); RED CELL DISTRIBUTION WIDTH 18.1 % (11.5-14.5); WHITE BLOOD COUNT 10.1 10^3/ul (4.8-10.8)
[2016-10-12 06:00] LABS: CREATININE 1.07 mg/dl (0.61-1.24)
[2016-10-12 06:01] LABS: CALCIUM 8.8 mg/dl (8.4-10.2); MAGNESIUM 2.1 mg/dl (1.7-2.5); PHOSPHORUS 2.5 mg/dl (2.5-4.9)
[2016-10-12] MEDS: SOD CHLORIDE 0.9% 1,000 ML IV SCH ×3 (07:30→23:30)
[2016-10-12 08:05] LABS: AADO2 Arterial 57.5 mmHg (7.0-24.0); Allen Test ACCEPTAB; Arterial Base Excess -3.7 mmol/L (-3.0-3); Arterial COHb 0.3 % (0.0-3.0); Arterial Fraction of Oxyhgb 97.3 % (93.0-99.0); Arterial HCO3 19.9 mmol/L (22.0-26.0); Arterial MetHb 0.5 % (0.0-1.5); MODE VENT - AC
[2016-10-12] MEDS: ALBUTEROL 18 GM INHALER INH PRN ×3 (08:10→21:30)
[2016-10-12] MEDS: ARTIFICIAL TEARS 15 ML OPH BOTH EYES SCH ×3 (08:38→20:17)
[2016-10-12] MEDS: LEVETIRACETAM 500 MG (PMX) 100 ML IVPB SCH ×2 (08:38→20:17)
[2016-10-12] MEDS: ACETAMINOPHEN 650 MG SUPP PR PRN ×2 (08:38→23:34)
[2016-10-12] MEDS: FAMOTIDINE 20 MG INJ IV SCH (09:10)
--- NOTE | 2016-10-12 09:11 | RADRPT ---
PROCEDURE: XR Chest. CLINICAL INDICATION: pna chf TECHNIQUE: Single frontal view of the chest was obtained. COMPARISON: Chest x-ray from 10/11/2016 FINDINGS: The endotracheal tube and right-sided PICC line are unchanged in position. There has been interval advancement of the enteric tube so that the proximal side hole is within the stomach. Sternotomy wires and a prosthetic cardiac valve are again noted. There is stable mild cardiomegaly with stable prominence of interstitial markings, likely due to mil d congestion on a background of chronic and / or senescent changes. Likely perifissural scarring is again noted in the lateral aspect of the right mid lung. There is no significant pleural effusion or pneumothorax. IMPRESSION: Interval advancement of the enteric tube, as above. Otherwise, no significant interval change. RPTAT: EE Physician Cyndi Date Time Electronically viewed and signed by Corey Jackson Physician on 10/12/2016 09:11 /
--- NOTE | 2016-10-12 10:22 | CONS ---
Date/Time of Note Date/Time of Note DATE: 10/12/16 TIME: 10:20 Consult Date/Type/Reason Admit Date/Time Oct 10, 2016 at 03:49 Initial Consult Date 10/10/16 Type of Consultation: Pulmonary/critical care Subjective Patient remains somnolent on mechanical ventilation without sedation No gag reflex He is breathing above the set ventilator rate Objective Vital Signs Date Time Temp Pulse Resp B/P Pulse Ox O2 Delivery O2 Flow Rate FiO2 10/12/16 08:00 102 10/12/16 06:00 20 127/80 100 Mechanical Ventilator 10/12/16 05:00 35 10/12/16 04:00 100.9 Intake and Output 10/11/16 10/11/16 10/12/16 15:00 23:00 07:00 Intake Total 484.80 ml 1067.20 ml 1035.05 ml Output Total 300 ml 450 ml 455 ml Balance 184.80 ml 617.20 ml 580.05 ml Exam PHYSICAL EXAMINATION GENERAL: Elderly gentleman, intubated on mechanical ventilation. Orally intubated. VITAL SIGNS: see below. HEENT: Pupils equal, round, and reactive to light. CARDIAC: S1, S2, tachycardia. CHEST: Diminished air entry bilaterally. ABDOMEN: Mildly distended. Decreased bowel sounds no guarding or rebound EXTREMITIES: No cyanosis, clubbing or edema. NEUROLOGIC: No focal deficits. Results/Medications Result Diagram: 10/12/16 0400 10/12/16 0400 Results 24 hrs Chest x-ray Clearly not infiltrates or effusions Laboratory Tests Test 10/11/16 13:54 10/11/16 16:57 10/11/16 18:08 10/11/16 20:55 Bedside Glucose 129 144 160 Activated Partial Thromboplast Time 62.8 H Test 10/11/16 22:50 10/12/16 01:36 10/12/16 04:00 10/12/16 05:02 Activated Partial Thromboplast Time 60.2 H Bedside Glucose 164 175 White Blood Count 10.1 Red Blood Count 3.30 L Hemoglobin 10.3 L Hematocrit 32.9 L Mean Corpuscular Volume 99.7 Mean Corpuscular Hemoglobin 31.2 Mean Corpuscular Hemoglobin Concent 31.3 L Red Cell Distribution Width 18.1 H Platelet Count 115 L Mean Platelet Volume 11.7 H Neutrophils % 85.6 H Lymphocytes % 4.4 L Monocytes % 9.1 Eosinophils % 0.2 Basophils % 0.2 Nucleated Red Blood Cells % 0.0 Neutrophils # 8.7 H Lymphocytes # 0.4 L Monocytes # 0.9 Eosinophils # 0.0 Basophils # 0.0 Nucleated Red Blood Cells # 0.0 Sodium Level 150 H Potassium Level 4.0 Chloride Level 118 H Carbon Dioxide Level 23 Anion Gap 13 Blood Urea Nitrogen 30 H Creatinine 1.07 Glucose Level 194 Calcium Level 8.8 Phosphorus Level 2.5 Magnesium Level 2.1 Test 10/12/16 07:00 10/12/16 08:28 10/12/16 08:36 Blood Gas Specimen Source Blood arterial Arterial Blood Date Drawn 10/12/2016 7:37:25 AM Arterial Blood pH (Temp corrected) 7.436 Arterial Blood pCO2 (Temp correct) 30.2 L Arterial Blood pO2 (Temp corrected) 120.9 H Arterial Blood HCO3 19.9 L Arterial Blood Base Excess -3.7 L Arterial Blood Oxygen Saturation 98.1 Vicente Test ACCEPTAB Arterial Blood Gas Puncture Site Left Radial Arterial Blood Carboxyhemoglobin 0.3 Arterial Blood Methemoglobin 0.5 Blood Gas A-a O2 Differential 57.5 H Oxyhemoglobin Percent 97.3 Total Hemoglobin 9.0 L Blood Gas Temperature 37.0 Blood Gas Respiration Rate 20.0 Blood Gas Actual Respiration Rate 20 Blood Gas Modality VENT - AC FiO2 30.0 Blood Gas Tidal Volume 500.0 Blood Gas Low PEEP Setting 5.0 Blood Gas Notified Whom JLD Blood Gas Notified Time 10/12/2016 8:05:10 AM Activated Partial Thromboplast Time 59.0 H Bedside Glucose 191 Medications Current Medications Eye Lubricant (Artificial Tears Oph) 1 drop TID BOTH EYES Last administered on 10/12/16 08:38; Admin Dose 1 DROP; Start 10/09/16 at 09:00 Famotidine (Pepcid Iv) 20 mg DAILY IV Last administered on 10/12/16 09:10; Admin Dose 20 MG; Start 10/09/16 at 09:00 Miscellaneous Information 1 ea NOTE XX ; Start 10/09/16 at 05:30 Glucose (Glutose) 15 gm Q15M PRN PO DECREASED GLUCOSE; Start 10/09/16 at 05:30 Glucose (Glutose) 22.5 gm Q15M PRN PO DECREASED GLUCOSE; Start 10/09/16 at 05: 30 Dextrose (D50w Syringe) 25 ml Q15M PRN IV DECREASED GLUCOSE; Start 10/09/16 at 05:30 Dextrose (D50w Syringe) 50 ml Q15M PRN IV DECREASED GLUCOSE; Start 10/09/16 at 05:30 Glucagon (Glucagen) 1 mg Q15M PRN IM DECREASED GLUCOSE; Start 10/09/16 at 05:30 Glucose (Glutose) 15 gm Q15M PRN BUCCAL DECREASED GLUCOSE; Start 10/09/16 at 05 :30 Diagnostic Test (Pha) 1 ea 1 ea 02 XX Last administered on 10/12/16 02:00; Admin Dose 1 EA; Start 10/10/16 at 02:00 Levetiracetam (Keppra 500 Mg/ 100ml (Pmx)) 100 ml @ 400 mls/hr Q12 IVPB Last administered on 10/12/16 08:38; Admin Dose 400 MLS/HR; Start 10/09/16 at 21:00 Acetaminophen (Tylenol Supp) 650 mg Q6H PRN [place] fever Last administered on 08:38; Admin Dose 650 MG; Start 10/09/16 at 13:00 Aspirin 81 mg 81 mg DAILY PO Last administered on 10/10/16 14:40; Admin Dose 81 MG; Start 10/10/16 at 09:00 Propofol (Diprivan) 100 ml @ 0 mls/hr TITRATE IV ; Start 10/10/16 at 01:00 Insulin Aspart (Novolog Insulin Pen) (Adult SC Insulin - Mild Algorithm)... Q4 SC Last administered on 10/12/16 08:41; Admin Dose 2 UNIT; Start 10/10/16 at 05:00 Miscellaneous Information 1 ea NOTE XX ; Start 10/10/16 at 02:00 Glucose (Glutose) 15 gm Q15M PRN PO DECREASED GLUCOSE; Start 10/10/16 at 02:00 Glucose (Glutose) 22.5 gm Q15M PRN PO DECREASED GLUCOSE; Start 10/10/16 at 02: 00 Dextrose (D50w Syringe) 25 ml Q15M PRN IV DECREASED GLUCOSE; Start 10/10/16 at 02:00 Dextrose (D50w Syringe) 50 ml Q15M PRN IV DECREASED GLUCOSE; Start 10/10/16 at 02:00 Glucagon (Glucagen) 1 mg Q15M PRN IM DECREASED GLUCOSE; Start 10/10/16 at 02:00 Glucose 15 gm 15 gm Q15M PRN BUCCAL DECREASED GLUCOSE; Start 10/10/16 at 02:00 Sodium Chloride (NS) 1,000 ml @ 125 mls/hr Q8H IV Last administered on 16:48; Admin Dose 125 MLS/HR; Start 10/10/16 at 07:30 IV Flush (NS 10 ml) 10 ml PRN PRN IV IV PROTOCOL; Start 10/10/16 at 12:30 Albuterol 4 puff 4 puff Q4 PRN INH for wheezing Last administered on 10/12/16 08:10; Admin Dose 4 PUFF; Start 10/10/16 at 13:30 Potassium Chloride/Sodium Chloride (KCl/1/2 NS) 1,020 ml @ 75 mls/hr [id number] IV Last administered on 10/12/16 03:26; Admin Dose 75 MLS/HR; Start 10/11/16 at 12:00 Assessment/Plan Chief Complaint/Hosp Course Assessment 1. Cardiopulmonary arrest 2. Probable anoxic brain injury 3. Aspiration pneumonia 4. Hypernatremia likely prerenal 5. Dysphagia secondary to above Plan 1. Continue mechanical ventilation 2. Continue current antibiotics 3. Continue to feeding 4. EEG and neurology evaluation. Overall prognosis very poor 5. DVT GI prophylaxis 6. Free water for correction of hyponatremia Disposition Prognosis guarded Discussed with family at bedside explained very poor prognosis which they understand suggested a family conference. Critical care time 40 minutes Problems: NASH DOUGLASS MD, [facility] Oct 12, 2016 10:21
--- NOTE | 2016-10-12 10:53 | CONS ---
Date/Time of Note Date/Time of Note DATE: 10/12/16 TIME: 10:49 Assessment/Plan Assessment/Plan Chief Complaint/Hosp Course IMPRESSION: 1. Positive troponins/non-ST elevation myocardial infarction, likely secondary to the patient's cardiopulmonary arrest, as the patient has had recent left heart catheterization July 2016 revealing no significant obstructive disease.-now troponin trended negative 2. Congestive heart failure, diastolic, acute on chronic, as the patient has undergone a 2D echo during this admission, interpreted by another flea market seller as having a preserved EF of 65% with mild aortic stenosis and mild prosthetic mitral valve and moderate tricuspid regurgitation. 3. Abnormal electrocardiogram with diffuse nonspecific ST and T-wave abnormalities, likely due to the patient's circulation arrest. 4. Respiratory failure, status post intubation. 5. Encephalopathy. 6. History of mitral valve replacement with bioprosthesis. 7. Atrial fibrillation on heparin. Coagulopathy secondary to prior Coumadin therapy as an outpatient. 8. Hypotension, borderline. 9. Diabetes mellitus. 10. Anemia. 11. Renal failure-improved. Recc: -Tele -Continue asa -start BB -Follow MS closely -Continue heparin -wean vent as possible Problems: Consultation Date/Type/Reason Admit Date/Time Oct 10, 2016 at 03:49 Initial Consult Date 10/10/16 Type of Consultation: Cardiology Reason for Consultation Nstemi/cardiac arrest Referring Provider: ALEXANDR MOULTON MD Exam/Review of Systems Vital Signs Vitals Vital Signs Date Time Temp Pulse Resp B/P Pulse Ox O2 Delivery O2 Flow Rate FiO2 10/12/16 08:00 102 10/12/16 06:00 20 127/80 100 Mechanical Ventilator 10/12/16 05:00 35 10/12/16 04:00 100.9 Intake and Output 10/11/16 10/11/16 10/12/16 15:00 23:00 07:00 Intake Total 484.80 ml 1067.20 ml 1035.05 ml Output Total 300 ml 450 ml 455 ml Balance 184.80 ml 617.20 ml 580.05 ml Exam Review of Systems: CONSTITUTIONAL: No fevers, chills. PULMONARY: intubated CARDIOVASCULAR: No chest pain/palpitations GASTROINTESTINAL: No nausea/vomiting. GENITOURINARY: No hematuria/dysuria. MUSCULOSKELETAL: No myagias/arthalgias. PSYCHIATRIC: The patient denies depression. NEUROLOGIC: encephalopathy Constitutional: other (encephalopathic) Psych: no complaints Head: normocephalic ENMT: mucosa pink and moist Neck: jvd (9 cm water), supple Respiratory: diminished breath sounds (at bases/B) Cardiovascular: regular rate and rhythm Gastrointestinal: non-tender, soft Musculoskeletal: muscle weakness (generalized) 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: other (No focal deficits) Results Result Diagram: 10/12/16 0400 10/12/16 0400 Results 24 hrs Laboratory Tests Test 10/11/16 13:54 10/11/16 16:57 10/11/16 18:08 10/11/16 20:55 Bedside Glucose 129 144 160 Activated Partial Thromboplast Time 62.8 H Test 10/11/16 22:50 10/12/16 01:36 10/12/16 04:00 10/12/16 05:02 Activated Partial Thromboplast Time 60.2 H Bedside Glucose 164 175 White Blood Count 10.1 Red Blood Count 3.30 L Hemoglobin 10.3 L Hematocrit 32.9 L Mean Corpuscular Volume 99.7 Mean Corpuscular Hemoglobin 31.2 Mean Corpuscular Hemoglobin Concent 31.3 L Red Cell Distribution Width 18.1 H Platelet Count 115 L Mean Platelet Volume 11.7 H Neutrophils % 85.6 H Lymphocytes % 4.4 L Monocytes % 9.1 Eosinophils % 0.2 Basophils % 0.2 Nucleated Red Blood Cells % 0.0 Neutrophils # 8.7 H Lymphocytes # 0.4 L Monocytes # 0.9 Eosinophils # 0.0 Basophils # 0.0 Nucleated Red Blood Cells # 0.0 Sodium Level 150 H Potassium Level 4.0 Chloride Level 118 H Carbon Dioxide Level 23 Anion Gap 13 Blood Urea Nitrogen 30 H Creatinine 1.07 Glucose Level 194 Calcium Level 8.8 Phosphorus Level 2.5 Magnesium Level 2.1 Test 10/12/16 07:00 10/12/16 08:28 10/12/16 08:36 Blood Gas Specimen Source Blood arterial Arterial Blood Date Drawn 10/12/2016 7:37:25 AM Arterial Blood pH (Temp corrected) 7.436 Arterial Blood pCO2 (Temp correct) 30.2 L Arterial Blood pO2 (Temp corrected) 120.9 H Arterial Blood HCO3 19.9 L Arterial Blood Base Excess -3.7 L Arterial Blood Oxygen Saturation 98.1 Vicente Test ACCEPTAB Arterial Blood Gas Puncture Site Left Radial Arterial Blood Carboxyhemoglobin 0.3 Arterial Blood Methemoglobin 0.5 Blood Gas A-a O2 Differential 57.5 H Oxyhemoglobin Percent 97.3 Total Hemoglobin 9.0 L Blood Gas Temperature 37.0 Blood Gas Respiration Rate 20.0 Blood Gas Actual Respiration Rate 20 Blood Gas Modality VENT - AC FiO2 30.0 Blood Gas Tidal Volume 500.0 Blood Gas Low PEEP Setting 5.0 Blood Gas Notified Whom JLD Blood Gas Notified Time 10/12/2016 8:05:10 AM Activated Partial Thromboplast Time 59.0 H Bedside Glucose 191 Medications Medications Current Medications Eye Lubricant (Artificial Tears Oph) 1 drop TID BOTH EYES Last administered on 10/12/16 08:38; Admin Dose 1 DROP; Start 10/09/16 at 09:00 Famotidine (Pepcid Iv) 20 mg DAILY IV Last administered on 10/12/16 09:10; Admin Dose 20 MG; Start 10/09/16 at 09:00 Miscellaneous Information 1 ea NOTE XX ; Start 10/09/16 at 05:30 Glucose (Glutose) 15 gm Q15M PRN PO DECREASED GLUCOSE; Start 10/09/16 at 05:30 Glucose (Glutose) 22.5 gm Q15M PRN PO DECREASED GLUCOSE; Start 10/09/16 at 05: 30 Dextrose (D50w Syringe) 25 ml Q15M PRN IV DECREASED GLUCOSE; Start 10/09/16 at 05:30 Dextrose (D50w Syringe) 50 ml Q15M PRN IV DECREASED GLUCOSE; Start 10/09/16 at 05:30 Glucagon (Glucagen) 1 mg Q15M PRN IM DECREASED GLUCOSE; Start 10/09/16 at 05:30 Glucose (Glutose) 15 gm Q15M PRN BUCCAL DECREASED GLUCOSE; Start 10/09/16 at 05 :30 Diagnostic Test (Pha) 1 ea 1 ea 02 XX Last administered on 10/12/16 02:00; Admin Dose 1 EA; Start 10/10/16 at 02:00 Levetiracetam (Keppra 500 Mg/ 100ml (Pmx)) 100 ml @ 400 mls/hr Q12 IVPB Last administered on 10/12/16 08:38; Admin Dose 400 MLS/HR; Start 10/09/16 at 21:00 Acetaminophen (Tylenol Supp) 650 mg Q6H PRN [place] fever Last administered on 08:38; Admin Dose 650 MG; Start 10/09/16 at 13:00 Aspirin 81 mg 81 mg DAILY PO Last administered on 10/10/16 14:40; Admin Dose 81 MG; Start 10/10/16 at 09:00 Propofol (Diprivan) 100 ml @ 0 mls/hr TITRATE IV ; Start 10/10/16 at 01:00 Insulin Aspart (Novolog Insulin Pen) (Adult SC Insulin - Mild Algorithm)... Q4 SC Last administered on 10/12/16 08:41; Admin Dose 2 UNIT; Start 10/10/16 at 05:00 Miscellaneous Information 1 ea NOTE XX ; Start 10/10/16 at 02:00 Glucose (Glutose) 15 gm Q15M PRN PO DECREASED GLUCOSE; Start 10/10/16 at 02:00 Glucose (Glutose) 22.5 gm Q15M PRN PO DECREASED GLUCOSE; Start 10/10/16 at 02: 00 Dextrose (D50w Syringe) 25 ml Q15M PRN IV DECREASED GLUCOSE; Start 10/10/16 at 02:00 Dextrose (D50w Syringe) 50 ml Q15M PRN IV DECREASED GLUCOSE; Start 10/10/16 at 02:00 Glucagon (Glucagen) 1 mg Q15M PRN IM DECREASED GLUCOSE; Start 10/10/16 at 02:00 Glucose 15 gm 15 gm Q15M PRN BUCCAL DECREASED GLUCOSE; Start 10/10/16 at 02:00 Sodium Chloride (NS) 1,000 ml @ 125 mls/hr Q8H IV Last administered on 16:48; Admin Dose 125 MLS/HR; Start 10/10/16 at 07:30 IV Flush (NS 10 ml) 10 ml PRN PRN IV IV PROTOCOL; Start 10/10/16 at 12:30 Albuterol 4 puff 4 puff Q4 PRN INH for wheezing Last administered on 10/12/16 08:10; Admin Dose 4 PUFF; Start 10/10/16 at 13:30 Potassium Chloride/Sodium Chloride (KCl/1/2 NS) 1,020 ml @ 75 mls/hr [id number] IV Last administered on 10/12/16 03:26; Admin Dose 75 MLS/HR; Start 10/11/16 at 12:00 ESTEFANI BORREGO Oct 12, 2016 10:53
[2016-10-12] MEDS ORDERED: VANCOMYCIN IV PER PHARMACY XX SCH (13:30)
--- NOTE | 2016-10-12 13:57 | PN ---
DATE: SUBJECTIVE: The patient is intubated, unresponsive, does not respond to commands. PHYSICAL EXAMINATION: VITAL SIGNS: Temperature 99.6, blood pressure 137/83, heart rate 104 per minute regular. O2 Sat 99 %. Addendum: The patient recently spiked temperature to 100.5. CHEST: Few wheezes heard anteriorly. HEART: S1, S2 heard with no gallops. ABDOMEN: Soft, nontender, no hepatosplenomegaly. EXTREMITIES: No edema. LABORATORY DATA: Intake is 2709, output is 1255. Blood glucose levels 175, 191, 208 since morning. Sodium 150, potassium 4.0, BUN 30, creatinine 1.07. WBC count 10.1, hematocrit 32.9, platelet cou nt 115,000. Blood cultures negative so far. IMPRESSION: 1. Status post cardiopulmonary arrest. 2. Hypernatremia. 3. Severe chronic obstructive pulmonary disease with likely aspiration pneumonia. 4. History of atrial fibrillation. 5. Diabetes mellitus type 2. PLAN: The patient may have anoxic encephalopathy, concerned about possible sepsis. Will obtain blo od cultures x2 and start the patient on vancomycin and Zosyn and order serum procalcitonin level. C ontinue pulmonary recommendations per Dr. Piedra, cardiac recommendation by Dr. Ramirez. Consider getting a neurology consultation. Dictated By: ALEXANDR MOULTON MD SR/SUDHAKAR Conf#: [id number] DID#: [id number]
[2016-10-12] MEDS ORDERED: VANCOMYCIN 1.25 GM in SOD CHLORIDE 0.9% 250 ML IVPB SCH (14:30)
[2016-10-12] MEDS: PIPER-TAZO 2.25 GM (PMX) 50 ML IVPB SCH ×2 (18:02→23:34)
[2016-10-12] MEDS: METOPROLOL 25 MG TAB PO SCH (20:17)
[2016-10-13] VITALS (36 sets, daily range): BP systolic 104–143; BP diastolic 67–90; PULSE 84–109; RESP 20–25
[2016-10-13] MEDS: Insulin NOVOLOG SS MILD Algorithm (NPO/TPN/ENTERAL FEEDS) SC SCH ×4 (01:15→13:54)
[2016-10-13] MEDS: ACCUCHECK AT 2AM (Patients on SS coverage) XX SCH (02:00)
[2016-10-13] MEDS: HEPARIN 25000 UNITS/250 ML 250 ML IV SCH (03:24)
[2016-10-13] MEDS: ALBUTEROL 0.083% (NEB) 2.5 MG/3 ML AMP HHN PRN (03:31)
[2016-10-13 04:41] LABS: ADD SCAN DIFF NO
[2016-10-13 04:47] LABS: ABNORMAL IP MESSAGE 1; BASOPHILS % 0.4 % (0.0-2.0); EOSINOPHILS % 0.4 % (0.0-7.0); HEMATOCRIT 32.1 % (42.0-52.0); LYMPHOCYTES # 0.6 10^3/ul (0.8-2.9); LYMPHOCYTES % 7.6 % (15.0-51.0); MEAN CORPUSCULAR HEMOGLOBIN 30.8 pg (29.0-33.0); MEAN CORPUSCULAR HGB CONC 31.2 g/dl (32.0-37.0); MEAN CORPUSCULAR VOLUME 98.8 fl (82.0-101.0); MEAN PLATELET VOLUME 11.2 fl (7.4-10.4); MONOCYTE # 0.9 10^3/ul (0.3-0.9); MONOCYTES % 11.6 % (0.0-11.0); NEUTROPHIL # 6.2 10^3/ul (1.6-7.5); PLATELET COUNT 128 10^3/UL (140-415); RED BLOOD COUNT 3.25 10^6/ul (4.70-6.10); RED CELL DISTRIBUTION WIDTH 18.1 % (11.5-14.5); WHITE BLOOD COUNT 7.8 10^3/ul (4.8-10.8)
[2016-10-13 05:06] LABS: POTASSIUM 4.2 mmol/L (3.5-5.1)
[2016-10-13 05:09] LABS: CALCIUM 8.9 mg/dl (8.4-10.2); CREATININE 1.04 mg/dl (0.61-1.24)
[2016-10-13] MEDS: PIPER-TAZO 2.25 GM (PMX) 50 ML IVPB SCH ×3 (06:19→18:40)
[2016-10-13] MEDS: SOD CHLORIDE 0.9% 1,000 ML IV SCH (07:30)
[2016-10-13] MEDS: ALBUTEROL 18 GM INHALER INH PRN ×2 (07:37→12:47)
[2016-10-13] MEDS: FAMOTIDINE 20 MG INJ IV SCH (08:08)
[2016-10-13] MEDS: ACETAMINOPHEN 650 MG SUPP PR PRN (08:08)
[2016-10-13] MEDS: METOPROLOL 25 MG TAB PO SCH ×2 (08:08→20:43)
[2016-10-13] MEDS: ASPIRIN 81 MG TAB PO SCH (08:08)
[2016-10-13] MEDS: ARTIFICIAL TEARS 15 ML OPH BOTH EYES SCH ×3 (08:09→21:13)
[2016-10-13] MEDS: LEVETIRACETAM 500 MG (PMX) 100 ML IVPB SCH ×2 (08:17→20:47)
[2016-10-13] MEDS: FUROSEMIDE 40 MG INJ IV SCH (09:54)
--- NOTE | 2016-10-13 10:12 | SP ---
DATE OF PROCEDURE: 10/11/2016 PROCEDURE: Electroencephalogram. INDICATION: A 75-year-old gentleman status post cardiopulmonary arrest. Currently on Keppra and pro pofol. DESCRIPTION OF PROCEDURE: Routine EEG was recorded digitally. [id number] and qubuh-[id number] yancy ages were recorded and reviewed. All impedances were measured and recorded. Cap electrodes were pl aced in accordance with International 10-20 system of electrode placement. FINDINGS: Very low amplitude background activity was seen, ranging in frequency between 2 to 3 cycl es per second. No response to photic stimulation. No epileptiform transients seen. No signs of on going electrographic seizures or generalized slowing. IMPRESSION: Abnormal study secondary to slowing of background and also very low amplitude of backgr ound activity, all likely reflects presence of anoxic injury. Please correlate clinically. Dictated By: ARPIT FRIEND/SUDHAKAR Conf#: [id number] DID#: [id number]
--- NOTE | 2016-10-13 10:31 | CONS ---
Date/Time of Note Date/Time of Note DATE: 10/13/16 TIME: 10:30 Consult Date/Type/Reason Admit Date/Time Oct 10, 2016 at 03:49 Initial Consult Date 10/10/16 Type of Consultation: pulmonary ICU Ordering Provider: ALEXANDR MOULTON MD Subjective Patient remains somnolent on mechanical ventilation Increased congestion with audible rales Objective Vital Signs Date Time Temp Pulse Resp B/P Pulse Ox O2 Delivery O2 Flow Rate FiO2 10/13/16 10:00 92 142/86 100 10/13/16 09:00 20 Mechanical Ventilator 10/13/16 08:00 102.1 10/13/16 05:08 35 Intake and Output 10/12/16 10/12/16 10/13/16 15:00 23:00 07:00 Intake Total 1207.05 ml 1437.20 ml 1507.75 ml Output Total 480 ml 480 ml 825 ml Balance 727.05 ml 957.20 ml 682.75 ml Exam PHYSICAL EXAMINATION GENERAL: Elderly gentleman, intubated on mechanical ventilation. Orally intubated. VITAL SIGNS: see below. HEENT: Pupils equal, round, and reactive to light. CARDIAC: S1, S2, tachycardia. CHEST: Diminished air entry bilaterally. ABDOMEN: Mildly distended. Decreased bowel sounds no guarding or rebound EXTREMITIES: No cyanosis, clubbing or edema. NEUROLOGIC: No focal deficits. Results/Medications Result Diagram: 10/13/16 0400 10/13/16 0400 Results 24 hrs Laboratory Tests Test 10/12/16 13:00 10/12/16 17:59 10/12/16 20:19 10/13/16 01:12 Bedside Glucose 208 220 196 236 H Test 10/13/16 04:00 10/13/16 04:40 10/13/16 08:07 White Blood Count 7.8 # Red Blood Count 3.25 L Hemoglobin 10.0 L Hematocrit 32.1 L Mean Corpuscular Volume 98.8 Mean Corpuscular Hemoglobin 30.8 Mean Corpuscular Hemoglobin Concent 31.2 L Red Cell Distribution Width 18.1 H Platelet Count 128 L Mean Platelet Volume 11.2 H Neutrophils % 79.0 H Lymphocytes % 7.6 L Monocytes % 11.6 H Eosinophils % 0.4 Basophils % 0.4 Nucleated Red Blood Cells % 0.0 Neutrophils # 6.2 Lymphocytes # 0.6 L Monocytes # 0.9 Eosinophils # 0.0 Basophils # 0.0 Nucleated Red Blood Cells # 0.0 Activated Partial Thromboplast Time 54.8 H Sodium Level 148 H Potassium Level 4.2 Chloride Level 115 H Carbon Dioxide Level 25 Anion Gap 12 Blood Urea Nitrogen 27 H Creatinine 1.04 Glucose Level 230 H Calcium Level 8.9 Magnesium Level 2.0 Bedside Glucose 212 235 H Medications Current Medications Eye Lubricant (Artificial Tears Oph) 1 drop TID BOTH EYES Last administered on 10/13/16 08:09; Admin Dose 1 DROP; Start 10/09/16 at 09:00 Famotidine (Pepcid Iv) 20 mg DAILY IV Last administered on 10/13/16 08:08; Admin Dose 20 MG; Start 10/09/16 at 09:00 Diagnostic Test (Pha) 1 ea 1 ea 02 XX Last administered on 10/13/16 02:00; Admin Dose 1 EA; Start 10/10/16 at 02:00 Levetiracetam (Keppra 500 Mg/ 100ml (Pmx)) 100 ml @ 400 mls/hr Q12 IVPB Last administered on 10/13/16 08:17; Admin Dose 400 MLS/HR; Start 10/09/16 at 21:00 Acetaminophen (Tylenol Supp) 650 mg Q6H PRN [place] fever Last administered on 08:08; Admin Dose 650 MG; Start 10/09/16 at 13:00 Aspirin 81 mg 81 mg DAILY PO Last administered on 10/13/16 08:08; Admin Dose 81 MG; Start 10/10/16 at 09:00 Propofol (Diprivan) 100 ml @ 0 mls/hr TITRATE IV ; Start 10/10/16 at 01:00 Insulin Aspart (Novolog Insulin Pen) (Adult SC Insulin - Mild Algorithm)... Q4 SC Last administered on 10/13/16 08:11; Admin Dose 3 UNIT; Start 10/10/16 at 05:00 Miscellaneous Information 1 ea NOTE XX ; Start 10/10/16 at 02:00 Glucose (Glutose) 15 gm Q15M PRN PO DECREASED GLUCOSE; Start 10/10/16 at 02:00 Glucose (Glutose) 22.5 gm Q15M PRN PO DECREASED GLUCOSE; Start 10/10/16 at 02: 00 Dextrose (D50w Syringe) 25 ml Q15M PRN IV DECREASED GLUCOSE; Start 10/10/16 at 02:00 Dextrose (D50w Syringe) 50 ml Q15M PRN IV DECREASED GLUCOSE; Start 10/10/16 at 02:00 Glucagon (Glucagen) 1 mg Q15M PRN IM DECREASED GLUCOSE; Start 10/10/16 at 02:00 Glucose 15 gm 15 gm Q15M PRN BUCCAL DECREASED GLUCOSE; Start 10/10/16 at 02:00 Sodium Chloride (NS) 1,000 ml @ 125 mls/hr Q8H IV Last administered on 16:48; Admin Dose 125 MLS/HR; Start 10/10/16 at 07:30 IV Flush (NS 10 ml) 10 ml PRN PRN IV IV PROTOCOL; Start 10/10/16 at 12:30 Albuterol 4 puff 4 puff Q4 PRN INH for wheezing Last administered on 10/13/16 07:37; Admin Dose 4 PUFF; Start 10/10/16 at 13:30 Potassium Chloride/Sodium Chloride (KCl/1/2 NS) 1,020 ml @ 75 mls/hr [id number] IV Last administered on 10/12/16 19:52; Admin Dose 75 MLS/HR; Start 10/11/16 at 12:00 Metoprolol Tartrate 25 mg 25 mg BID PO Last administered on 10/13/16 08:08; Admin Dose 25 MG; Start 10/12/16 at 21:00 Piperacillin Sod/ Tazobactam Sod 50 ml @ 100 mls/hr Q6 IVPB Last administered on 10/13/16 06:19; Admin Dose 100 MLS/HR; Start 10/12/16 at 18:00 Vancomycin HCl/ Sodium Chloride (Vancocin/NS) 250 ml @ 83.333 mls/ hr Q24H IVPB ; Start 10/13/16 at 16:00 Furosemide (Lasix) 40 mg DAILY IV Last administered on 10/13/16 09:54; Admin Dose 40 MG; Start 10/13/16 at 09:30 Assessment/Plan Chief Complaint/Hosp Course Assessment 1. Cardiopulmonary arrest 2. Probable anoxic brain injury 3. Aspiration pneumonia 4. Hypernatremia likely prerenal 5. Dysphagia secondary to above 6. Increasing pulmonary edema with respiratory failure as above Plan 1. Continue mechanical ventilation 2. Continue current antibiotics 3. Continue to feeding 4. EEG and neurology evaluation. Overall prognosis very poor 5. DVT GI prophylaxis 6. Free water for correction of hyponatremia Disposition Prognosis guarded Discussed with family at bedside explained very poor prognosis which they understand suggested a family conference. Critical care time 40 minutes Problems: NASH DOUGLASS MD, [facility] Oct 13, 2016 10:31
--- NOTE | 2016-10-13 12:59 | CONS ---
Date/Time of Note Date/Time of Note DATE: 10/13/16 TIME: 12:56 Assessment/Plan Assessment/Plan Chief Complaint/Hosp Course IMPRESSION: 1. Positive troponins/non-ST elevation myocardial infarction, likely secondary to the patient's cardiopulmonary arrest, as the patient has had recent left heart catheterization July 2016 revealing no significant obstructive disease.-now troponin trended negative 2. Congestive heart failure, diastolic, acute on chronic, as the patient has undergone a 2D echo during this admission, interpreted by another entry level receptionist as having a preserved EF of 65% with mild aortic stenosis and mild prosthetic mitral valve and moderate tricuspid regurgitation. 3. Abnormal electrocardiogram with diffuse nonspecific ST and T-wave abnormalities, likely due to the patient's circulation arrest. 4. Respiratory failure, status post intubation. 5. Encephalopathy. 6. History of mitral valve replacement with bioprosthesis. 7. Atrial fibrillation on heparin. Coagulopathy secondary to prior Coumadin therapy as an outpatient. 8. Hypotension, borderline. 9. Diabetes mellitus. 10. Anemia. 11. Renal failure-improved. Recc: -Tele -Continue asa -Continue BB -Follow MS closely -Continue heparin -wean vent as possible -Dose ativan for possible seizure Problems: Consultation Date/Type/Reason Admit Date/Time Oct 10, 2016 at 03:49 Initial Consult Date 10/10/16 Type of Consultation: Cardiology Reason for Consultation cardiac arrest Referring Provider: ALEXANDR MOULTON MD Exam/Review of Systems Vital Signs Vitals Vital Signs Date Time Temp Pulse Resp B/P Pulse Ox O2 Delivery O2 Flow Rate FiO2 10/13/16 12:00 96 10/13/16 12:00 20 134/83 100 Mechanical Ventilator 10/13/16 08:00 40 10/13/16 08:00 102.1 Intake and Output 10/12/16 10/12/16 10/13/16 15:00 23:00 07:00 Intake Total 1207.05 ml 1437.20 ml 1507.75 ml Output Total 480 ml 480 ml 825 ml Balance 727.05 ml 957.20 ml 682.75 ml Exam Review of Systems: CONSTITUTIONAL: No fevers, chills. PULMONARY: No sob CARDIOVASCULAR: No chest pain/palpitations GASTROINTESTINAL: No nausea/vomiting. GENITOURINARY: No hematuria/dysuria. MUSCULOSKELETAL: No myagias/arthalgias. PSYCHIATRIC: The patient denies depression. NEUROLOGIC: possible focal seizure Constitutional: other (encephalopathic/sedated) Psych: no complaints Head: normocephalic ENMT: mucosa pink and moist Neck: jvd (9 cm water), supple Respiratory: other (upper airway rhocherous sounds) Cardiovascular: regular rate and rhythm Gastrointestinal: non-tender, soft Musculoskeletal: muscle tone (normal) Extremities: edema (none) 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: other (encephalopathic/seizures) Results Result Diagram: 10/13/1639910/13/16 0400 Results 24 hrs Laboratory Tests Test 10/12/16 13:00 10/12/16 17:59 10/12/16 20:19 10/13/16 01:12 Bedside Glucose 208 220 196 236 H Test 10/13/16 04:00 10/13/16 04:40 10/13/16 08:07 White Blood Count 7.8 # Red Blood Count 3.25 L Hemoglobin 10.0 L Hematocrit 32.1 L Mean Corpuscular Volume 98.8 Mean Corpuscular Hemoglobin 30.8 Mean Corpuscular Hemoglobin Concent 31.2 L Red Cell Distribution Width 18.1 H Platelet Count 128 L Mean Platelet Volume 11.2 H Neutrophils % 79.0 H Lymphocytes % 7.6 L Monocytes % 11.6 H Eosinophils % 0.4 Basophils % 0.4 Nucleated Red Blood Cells % 0.0 Neutrophils # 6.2 Lymphocytes # 0.6 L Monocytes # 0.9 Eosinophils # 0.0 Basophils # 0.0 Nucleated Red Blood Cells # 0.0 Activated Partial Thromboplast Time 54.8 H Sodium Level 148 H Potassium Level 4.2 Chloride Level 115 H Carbon Dioxide Level 25 Anion Gap 12 Blood Urea Nitrogen 27 H Creatinine 1.04 Glucose Level 230 H Calcium Level 8.9 Magnesium Level 2.0 Bedside Glucose 212 235 H Medications Medications Current Medications Eye Lubricant (Artificial Tears Oph) 1 drop TID BOTH EYES Last administered on 10/13/16 08:09; Admin Dose 1 DROP; Start 10/09/16 at 09:00 Famotidine (Pepcid Iv) 20 mg DAILY IV Last administered on 10/13/16 08:08; Admin Dose 20 MG; Start 10/09/16 at 09:00 Diagnostic Test (Pha) 1 ea 1 ea 02 XX Last administered on 10/13/16 02:00; Admin Dose 1 EA; Start 10/10/16 at 02:00 Levetiracetam (Keppra 500 Mg/ 100ml (Pmx)) 100 ml @ 400 mls/hr Q12 IVPB Last administered on 10/13/16 08:17; Admin Dose 400 MLS/HR; Start 10/09/16 at 21:00 Acetaminophen (Tylenol Supp) 650 mg Q6H PRN IA fever Last administered on 08:08; Admin Dose 650 MG; Start 10/09/16 at 13:00 Aspirin 81 mg 81 mg DAILY PO Last administered on 10/13/16 08:08; Admin Dose 81 MG; Start 10/10/16 at 09:00 Propofol (Diprivan) 100 ml @ 0 mls/hr TITRATE IV ; Start 10/10/16 at 01:00 Insulin Aspart (Novolog Insulin Pen) (Adult SC Insulin - Mild Algorithm)... Q4 SC Last administered on 10/13/16 08:11; Admin Dose 3 UNIT; Start 10/10/16 at 05:00 Miscellaneous Information 1 ea NOTE XX ; Start 10/10/16 at 02:00 Glucose (Glutose) 15 gm Q15M PRN PO DECREASED GLUCOSE; Start 10/10/16 at 02:00 Glucose (Glutose) 22.5 gm Q15M PRN PO DECREASED GLUCOSE; Start 10/10/16 at 02: 00 Dextrose (D50w Syringe) 25 ml Q15M PRN IV DECREASED GLUCOSE; Start 10/10/16 at 02:00 Dextrose (D50w Syringe) 50 ml Q15M PRN IV DECREASED GLUCOSE; Start 10/10/16 at 02:00 Glucagon (Glucagen) 1 mg Q15M PRN IM DECREASED GLUCOSE; Start 10/10/16 at 02:00 Glucose 15 gm 15 gm Q15M PRN BUCCAL DECREASED GLUCOSE; Start 10/10/16 at 02:00 Sodium Chloride (NS) 1,000 ml @ 125 mls/hr Q8H IV Last administered on 16:48; Admin Dose 125 MLS/HR; Start 10/10/16 at 07:30 IV Flush (NS 10 ml) 10 ml PRN PRN IV IV PROTOCOL; Start 10/10/16 at 12:30 Albuterol 4 puff 4 puff Q4 PRN INH for wheezing Last administered on 10/13/16 12:47; Admin Dose 4 PUFF; Start 10/10/16 at 13:30 Potassium Chloride/Sodium Chloride (KCl/1/2 NS) 1,020 ml @ 75 mls/hr [id number] IV Last administered on 10/12/16 19:52; Admin Dose 75 MLS/HR; Start 10/11/16 at 12:00 Metoprolol Tartrate 25 mg 25 mg BID PO Last administered on 10/13/16 08:08; Admin Dose 25 MG; Start 10/12/16 at 21:00 Piperacillin Sod/ Tazobactam Sod 50 ml @ 100 mls/hr Q6 IVPB Last administered on 10/13/16 12:45; Admin Dose 100 MLS/HR; Start 10/12/16 at 18:00 Vancomycin HCl/ Sodium Chloride (Vancocin/NS) 250 ml @ 83.333 mls/ hr Q24H IVPB ; Start 10/13/16 at 16:00 Furosemide (Lasix) 40 mg DAILY IV Last administered on 10/13/16 09:54; Admin Dose 40 MG; Start 10/13/16 at 09:30 ESTEFANI BORREGO Oct 13, 2016 12:59
[2016-10-13] MEDS ORDERED: LORAZEPAM 2 MG INJ ONE (13:00)
[2016-10-13] MEDS ORDERED: LORAZEPAM 2 MG INJ IV ONE (13:00)
--- NOTE | 2016-10-13 15:34 | PN ---
DATE: 10/13/2016 SUBJECTIVE: GENERAL: The patient remains sedated, intubated. Does not respond to verbal command. VITAL SIGNS: T-max 99.9, blood pressure 138/86, heart rate 100 per minute and regular. O2 saturati on 100%. I's and O's: 4140 in and output is 1745. HEENT: Eyes closed. NECK: Supple. JVD is not increased and G-tube is functioning well. CHEST: A few wheezes heard anteriorly. HEART: S1, S2 heard, with no definite gallops. Mid systolic murmur, without conduction. ABDOMEN: Soft. Mildly distended. Bowel sounds active. EXTREMITIES: Trace edema. Homans sign is negative. LABORATORY: WBC count 7.8, hematocrit 30.1, platelet count 128,000. Glucose 230, 212, 235, 2 65. Sodium 148, potassium 4.2, BUN 27, creatinine 1.04, magnesium 2.0. Blood cultures, gram-positi ve cocci in clusters. The patient was noted to have twitching of the right foot, but no definite to byron-clonic movements. EEG studies were reviewed by Dr. Yoo and shows slowing of background activi ty, low amplitude, reflecting the presence of anoxic injury. IMPRESSION: 1. Status post cardiopulmonary arrest. 2. Hypernatremia. Improved. 3. Severe chronic obstructive pulmonary disease, with underlying aspiration pneumonia. 4. Staph bacteremia. Query MRSA. 5. History of atrial fibrillation. 6. Diabetes mellitus type 2. Not adequately controlled. 7. Status post mitral and aortic valve replacement. Concern about possible anoxic encephalopathy and seizures. Will request Dr. Yoo for neurology con sultation. His overall prognosis remains guarded. Continue vancomycin and Zosyn for now. Dictated By: ALEXANDR MOULTON MD SR/NTS Conf#: [id number] DID#: [id number]
[2016-10-13] MEDS: ACETAMINOPHEN 325 MG TAB PO PRN (15:39)
[2016-10-13] MEDS: VANCOMYCIN 1.25 GM in SOD CHLORIDE 0.9% 250 ML IVPB SCH (15:39)
[2016-10-13] MEDS ORDERED: INSULIN ASPART [NOVOLOG] 3 ML PEN SC SCH ×2 (17:00→17:35)
[2016-10-13] MEDS: POTASSIUM CHLORIDE 40 MEQ in SOD CHLORIDE 0.45% 1,000 ML IV SCH (17:53)
[2016-10-13] MEDS: LORAZEPAM 2 MG INJ IV PRN ×2 (18:41→22:58)
[2016-10-13] MEDS: INSULIN GLARGINE [LANtus] 3 ML PEN SC SCH (20:44)
[2016-10-13] MEDS: INSULIN ASPART [NOVOLOG] 3 ML PEN SC SCH (20:45)
[2016-10-13] MEDS ORDERED: LORAZEPAM 2 MG INJ IV PRN (23:30)
[2016-10-14] VITALS (36 sets, daily range): BP systolic 87–128; BP diastolic 57–92; PULSE 85–112; RESP 14–33
[2016-10-14] MEDS: PIPER-TAZO 2.25 GM (PMX) 50 ML IVPB SCH ×4 (00:46→17:38)
[2016-10-14] MEDS: INSULIN ASPART [NOVOLOG] 3 ML PEN SC SCH ×6 (00:55→20:55)
[2016-10-14] MEDS: ALBUTEROL 18 GM INHALER INH PRN ×3 (01:02→13:32)
[2016-10-14] MEDS: ACETAMINOPHEN 325 MG TAB PO PRN ×2 (01:06→08:11)
[2016-10-14] MEDS ORDERED: ACCU-CHEK XX SCH ×2 (02:00)
[2016-10-14 04:57] LABS: ADD SCAN DIFF NO
[2016-10-14 05:04] LABS: BASOPHILS % 0.3 % (0.0-2.0); EOSINOPHILS # 0.2 10^3/ul (0.0-0.5); EOSINOPHILS % 2.5 % (0.0-7.0); HEMATOCRIT 30.4 % (42.0-52.0); HEMOGLOBIN 9.9 g/dl (14.0-18.0); LYMPHOCYTES # 0.6 10^3/ul (0.8-2.9); LYMPHOCYTES % 8.3 % (15.0-51.0); MEAN CORPUSCULAR HEMOGLOBIN 31.3 pg (29.0-33.0); MEAN CORPUSCULAR HGB CONC 32.6 g/dl (32.0-37.0); MEAN CORPUSCULAR VOLUME 96.2 fl (82.0-101.0); MONOCYTE # 0.7 10^3/ul (0.3-0.9); MONOCYTES % 9.4 % (0.0-11.0); NEUTROPHIL # 5.7 10^3/ul (1.6-7.5); NEUTROPHILS % 78.7 % (39.0-77.0); PLATELET COUNT 113 10^3/UL (140-415); RED BLOOD COUNT 3.16 10^6/ul (4.70-6.10); RED CELL DISTRIBUTION WIDTH 17.4 % (11.5-14.5); WHITE BLOOD COUNT 7.3 10^3/ul (4.8-10.8)
[2016-10-14 05:27] LABS: POTASSIUM 4.1 mmol/L (3.5-5.1)
[2016-10-14 05:30] LABS: CREATININE 1.1 mg/dl (0.61-1.24)
[2016-10-14 05:31] LABS: CALCIUM 8.9 mg/dl (8.4-10.2); MAGNESIUM 1.7 mg/dl (1.7-2.5); PHOSPHORUS 3.3 mg/dl (2.5-4.9)
[2016-10-14] MEDS: POTASSIUM CHLORIDE 40 MEQ in SOD CHLORIDE 0.45% 1,000 ML IV SCH ×2 (05:49→22:30)
[2016-10-14] MEDS: ASPIRIN 81 MG TAB PO SCH (08:10)
[2016-10-14] MEDS: FAMOTIDINE 20 MG INJ IV SCH (08:11)
[2016-10-14] MEDS: FUROSEMIDE 40 MG INJ IV SCH (08:11)
[2016-10-14] MEDS: LEVETIRACETAM 500 MG (PMX) 100 ML IVPB SCH ×3 (08:11→21:00)
[2016-10-14] MEDS: METOPROLOL 25 MG TAB PO SCH ×2 (08:13→20:45)
[2016-10-14] MEDS: ARTIFICIAL TEARS 15 ML OPH BOTH EYES SCH ×3 (08:13→20:55)
--- NOTE | 2016-10-14 08:32 | RADRPT ---
PROCEDURE: Chest Radiograph. CLINICAL INDICATION: Pneumonia. CHF. TECHNIQUE: Single frontal chest radiograph. COMPARISON: Chest radiograph 10/12/2016 FINDINGS: An endotracheal tube remains in place. The iván is not well seen on the current study, however th e endotracheal tube appears to be at the level of the iván. A nasogastric tube remains in place w ith distal tip overlying the stomach. A right upper extremity PICC is unchanged. The patient is st atus post sternotomy. 2 artificial valves are in place. The heart is magnified. There is interval o bscuration of the left hemidiaphragm suggesting left basilar infiltrate and possible small effusion. The lung meyers are otherwise unchanged. The bones are intact. IMPRESSION: 1. Unchanged position of endotracheal tube which appears to be at the level of the iván. Recomme nd retraction by approximately 2 cm. 2. Interval development of left basilar infiltrate and/or pleural effusion. Recommend follow-up. 3. Otherwise stable radiographic appearance of the chest compared to 10/12/2016. RPTAT: AA .Jason King MD, MD Date Time Electronically viewed and signed by .Jason King MD, on 10/14/2016 08:32 .B/
[2016-10-14 08:40] LABS: AADO2 Arterial 102.1 mmHg (7.0-24.0); Allen Test ACCEPTAB; Arterial Base Excess 3.2 mmol/L (-3.0-3); Arterial COHb 0.3 % (0.0-3.0); Arterial Fraction of Oxyhgb 97.1 % (93.0-99.0); Arterial HCO3 26.5 mmol/L (22.0-26.0); Arterial MetHb 0.3 % (0.0-1.5); Arterial Total Hemglobin 11.2 g/dl (12.0-18.0); MODE VENT - AC
[2016-10-14] MEDS: HEPARIN 25000 UNITS/250 ML 250 ML IV SCH (10:57)
--- NOTE | 2016-10-14 11:09 | CONS ---
Date/Time of Note Date/Time of Note DATE: 10/14/16 TIME: 11:02 Consult Date/Type/Reason Admit Date/Time Oct 10, 2016 at 03:49 Initial Consult Date 10/10/16 Type of Consultation: pulmonary ICU Ordering Provider: ALEXANDR MOULTON MD Subjective Patient remains intubated on mechanical ventilation with no sedation. He remains somnolent reflex pupils are sluggish but reactive He is not breathing over set ventilator rate EEG showed evidence of anoxic brain injury Objective Vital Signs Date Time Temp Pulse Resp B/P Pulse Ox O2 Delivery O2 Flow Rate FiO2 10/14/16 10:00 91 20 95/66 100 Mechanical Ventilator 10/14/16 09:00 35 10/14/16 08:00 101.6 Intake and Output 10/13/16 10/13/16 10/14/16 15:00 23:00 07:00 Intake Total 1475.8 ml 1462.4 ml 1452.4 ml Output Total 2285 ml 785 ml 525 ml Balance -809.2 ml 677.4 ml 927.4 ml Exam PHYSICAL EXAMINATION GENERAL: Elderly gentleman, intubated on mechanical ventilation. Orally intubated. VITAL SIGNS: see below. HEENT: Pupils equal, round, and reactive to light. CARDIAC: S1, S2, tachycardia. CHEST: Diminished air entry bilaterally. ABDOMEN: Mildly distended. Decreased bowel sounds no guarding or rebound EXTREMITIES: No cyanosis, clubbing or edema. NEUROLOGIC: No gag reflex Results/Medications Result Diagram: 10/14/16 0445 10/14/16 0445 Results 24 hrs Laboratory Tests Test 10/13/16 12:36 10/13/16 13:46 10/13/16 17:52 10/13/16 20:35 Activated Partial Thromboplast Time 71.3 *H 62.2 H Bedside Glucose 265 H 214 Test 10/13/16 20:42 10/14/16 00:53 10/14/16 04:30 10/14/16 04:45 Bedside Glucose 229 H 154 187 White Blood Count 7.3 Red Blood Count 3.16 L Hemoglobin 9.9 L Hematocrit 30.4 L Mean Corpuscular Volume 96.2 Mean Corpuscular Hemoglobin 31.3 Mean Corpuscular Hemoglobin Concent 32.6 Red Cell Distribution Width 17.4 H Platelet Count 113 L Mean Platelet Volume 11.0 H Neutrophils % 78.7 H Lymphocytes % 8.3 L Monocytes % 9.4 Eosinophils % 2.5 Basophils % 0.3 Nucleated Red Blood Cells % 0.0 Neutrophils # 5.7 Lymphocytes # 0.6 L Monocytes # 0.7 Eosinophils # 0.2 Basophils # 0.0 Nucleated Red Blood Cells # 0.0 Activated Partial Thromboplast Time 61.8 H Sodium Level 144 Potassium Level 4.1 Chloride Level 108 Carbon Dioxide Level 26 Anion Gap 14 Blood Urea Nitrogen 31 H Creatinine 1.10 Glucose Level 183 Calcium Level 8.9 Phosphorus Level 3.3 Magnesium Level 1.7 Test 10/14/16 07:00 10/14/16 08:21 Blood Gas Specimen Source Blood arterial Arterial Blood Date Drawn 10/14/2016 7:50:29 AM Arterial Blood pH (Temp corrected) 7.489 H Arterial Blood pCO2 (Temp correct) 35.7 Arterial Blood pO2 (Temp corrected) 106.0 H Arterial Blood HCO3 26.5 H Arterial Blood Base Excess 3.2 H Arterial Blood Oxygen Saturation 97.7 Vicente Test ACCEPTAB Arterial Blood Gas Puncture Site Left Radial Arterial Blood Carboxyhemoglobin 0.3 Arterial Blood Methemoglobin 0.3 Blood Gas A-a O2 Differential 102.1 H Oxyhemoglobin Percent 97.1 Total Hemoglobin 11.2 L Blood Gas Temperature 37.0 Blood Gas Respiration Rate 20.0 Blood Gas Actual Respiration Rate 20 Blood Gas Modality VENT - AC FiO2 35.0 Blood Gas Tidal Volume 500.0 Blood Gas Low PEEP Setting 5.0 Blood Gas Notified Whom K B Blood Gas Notified Time 10/14/2016 8:06:23 AM Bedside Glucose 172 Medications Current Medications Eye Lubricant (Artificial Tears Oph) 1 drop TID BOTH EYES Last administered on 10/14/16 08:13; Admin Dose 1 DROP; Start 10/09/16 at 09:00 Famotidine 20 mg 20 mg DAILY IV Last administered on 10/14/16 08:11; Admin Dose 20 MG; Start 10/09/16 at 09:00 Levetiracetam (Keppra 500 Mg/ 100ml (Pmx)) 100 ml @ 400 mls/hr Q12 IVPB Last administered on 10/14/16 08:11; Admin Dose 400 MLS/HR; Start 10/09/16 at 21:00 Aspirin 81 mg 81 mg DAILY PO Last administered on 10/14/16 08:10; Admin Dose 81 MG; Start 10/10/16 at 09:00 Propofol (Diprivan) 100 ml @ 0 mls/hr TITRATE IV ; Start 10/10/16 at 01:00 Miscellaneous Information 1 ea NOTE XX ; Start 10/10/16 at 02:00 Glucose (Glutose) 15 gm Q15M PRN PO DECREASED GLUCOSE; Start 10/10/16 at 02:00 Glucose (Glutose) 22.5 gm Q15M PRN PO DECREASED GLUCOSE; Start 10/10/16 at 02: 00 Dextrose (D50w Syringe) 25 ml Q15M PRN IV DECREASED GLUCOSE; Start 10/10/16 at 02:00 Dextrose (D50w Syringe) 50 ml Q15M PRN IV DECREASED GLUCOSE; Start 10/10/16 at 02:00 Glucagon (Glucagen) 1 mg Q15M PRN IM DECREASED GLUCOSE; Start 10/10/16 at 02:00 Glucose (Glutose) 15 gm Q15M PRN BUCCAL DECREASED GLUCOSE; Start 10/10/16 at 02 :00 IV Flush (NS 10 ml) 10 ml PRN PRN IV IV PROTOCOL; Start 10/10/16 at 12:30 Albuterol 4 puff 4 puff Q4 PRN INH for wheezing Last administered on 10/14/16 09:03; Admin Dose 4 PUFF; Start 10/10/16 at 13:30 Potassium Chloride/Sodium Chloride (KCl/1/2 NS) 1,020 ml @ 75 mls/hr [id number] IV Last administered on 10/14/16 05:49; Admin Dose 75 MLS/HR; Start 10/11/16 at 12:00 Metoprolol Tartrate 25 mg 25 mg BID PO Last administered on 10/14/16 08:13; Admin Dose 25 MG; Start 10/12/16 at 21:00 Piperacillin Sod/ Tazobactam Sod 50 ml @ 100 mls/hr Q6 IVPB Last administered on 10/14/16 05:49; Admin Dose 100 MLS/HR; Start 10/12/16 at 18:00 Vancomycin HCl/ Sodium Chloride (Vancocin/NS) 250 ml @ 83.333 mls/ hr Q24H IVPB Last administered on 10/13/16 15:39; Admin Dose 83.333 MLS/HR; Start at 16:00 Furosemide (Lasix) 40 mg DAILY IV Last administered on 10/14/16 08:11; Admin Dose 40 MG; Start 10/13/16 at 09:30 Acetaminophen (Tylenol Tab) 650 mg Q6H PRN PO PAIN AND OR ELEVATED TEMP Last administered on 10/14/16 08:11; Admin Dose 650 MG; Start 10/13/16 at 15:00 Insulin Glargine (Lantus) 10 unit DAILY@20 SC Last administered on 10/13/16 20 :44; Admin Dose 10 UNIT; Start 10/13/16 at 20:00 Insulin Aspart (Novolog Insulin Pen) NOVOLOG *MODERATE* ALGORI... Q4 SC Last administered on 10/14/16 08:25; Admin Dose 2 UNIT; Start 10/13/16 at 21:00 Lorazepam (Ativan) 1 mg Q6H PRN IV SEIZURES; Start 10/13/16 at 23:30 Assessment/Plan Chief Complaint/Hosp Course Assessment 1. Cardiopulmonary arrest 2. Probable anoxic brain injury 3. Aspiration pneumonia 4. Hypernatremia likely prerenal 5. Dysphagia secondary to above 6. Pulmonary edema improved today Plan 1. Continue mechanical ventilation 2. Continue current antibiotics 3. Continue to feeding 4. EEG and neurology evaluation. Overall prognosis very poor will repeat EEG one more time. 5. DVT GI prophylaxis 6. Free water for correction of hyponatremia Disposition Prognosis guarded Long family conference this morning with all family members at bedside. I explained the gravity of his condition. We have decided to give the patient a few more days, if there is no improvement by Monday family will consider terminal extubation. Discussed all options including tracheostomy PEG tube quality of life. Critical care time 40 minutes Problems: NASH DOUGLASS MD, [facility] Oct 14, 2016 11:09
--- NOTE | 2016-10-14 12:34 | CONS ---
DATE OF ADMISSION: 10/10/2016 DATE OF CONSULTATION: 10/14/2016 TYPE OF CONSULTATION: Palliative Care REFERRING PHYSICIAN: Larry Piedra MD All the information is taken from the patient's medical record. HISTORY OF PRESENT ILLNESS: This is a 75-year-old gentleman who apparently had a witnessed cardiac arrest at home, was brought in by EMS. In the emergency room, patient was intubated, had no signs o f STEMI. He was admitted to the intensive care unit with the following diagnoses: Status post card iac arrest ROSC, respiratory failure, intubated at this time, atrial fibrillation. Seen by multiple different physicians including Dr. Ramirez, Dr. Kapoor, Dr. Loja, Dr. Piedra, Dr. Whalen. Th e patient remains intubated on the vent. He is not over breathing the ventilator. EEG I reviewed t erlin, by Dr. Fredo Bhardwaj, and this was done yesterday 10/13/2016, shows an abnormal study se condary to slowing of background, also very low amplitude of background activity, all likely reflect s the presence of anoxic injury, please correlate clinically. The patient is a FULL CODE. The manpreet r issue at this point is level of care. The patient is 4 days post-cardiac arrest and is a FULL COD E. I am asked to open a conversation with family members and discuss patient's current medical cond ition, but not necessarily broach the subject of end of life care. Full evaluation and family conference and all the issues that will be discussed with family members including who is making the decision on the patient's behalf, patient's background, family's underst anding of his current condition, quality of life issues, strength, cultural issues, communication pr eferences, care concerns, and a more thorough physical examination will be done. I will discuss goa ls of care with family members, although once again this is somewhat early. I do not want to trauma tize them, nor will I discuss prognosis. Followup will be done within the next 24 hours. Dictated By: JANELL KIM MD, LP/NTS Conf#: [id number] DID#: [id number]
--- NOTE | 2016-10-14 12:46 | CONS ---
Date/Time of Note Date/Time of Note DATE: 10/14/16 TIME: 12:42 Assessment/Plan Assessment/Plan Chief Complaint/Hosp Course IMPRESSION: 1. Positive troponins/non-ST elevation myocardial infarction, likely secondary to the patient's cardiopulmonary arrest, as the patient has had recent left heart catheterization July 2016 revealing no significant obstructive disease.-now troponin trended negative 2. Congestive heart failure, diastolic, acute on chronic, as the patient has undergone a 2D echo during this admission, interpreted by another pharmacy director as having a preserved EF of 65% with mild aortic stenosis and mild prosthetic mitral valve and moderate tricuspid regurgitation. 3. Abnormal electrocardiogram with diffuse nonspecific ST and T-wave abnormalities, likely due to the patient's circulation arrest. 4. Respiratory failure, status post intubation. 5. Encephalopathy. 6. History of mitral valve replacement with bioprosthesis. 7. Atrial fibrillation on heparin. Coagulopathy secondary to prior Coumadin therapy as an outpatient. 8. Hypotension, borderline. 9. Diabetes mellitus. 10. Anemia. 11. Renal failure-improved. 12.sezure episode-focal yesterday probable Recc: -Tele -Continue asa -Continue BB as tolerated only -Follow MS closely -Continue heparin -wean vent as possible -Dose IVP digoxin to improve HR control Problems: Consultation Date/Type/Reason Admit Date/Time Oct 10, 2016 at 03:49 Initial Consult Date 10/10/16 Type of Consultation: Cardiology Reason for Consultation Nstemi Referring Provider: ALEXANDR MOULTON MD Exam/Review of Systems Vital Signs Vitals Vital Signs Date Time Temp Pulse Resp B/P Pulse Ox O2 Delivery O2 Flow Rate FiO2 10/14/16 11:35 35 10/14/16 11:31 104 20 100 10/14/16 10:00 95/66 Mechanical Ventilator 10/14/16 08:00 101.6 Intake and Output 10/13/16 10/13/16 10/14/16 15:00 23:00 07:00 Intake Total 1475.8 ml 1462.4 ml 1452.4 ml Output Total 2285 ml 785 ml 525 ml Balance -809.2 ml 677.4 ml 927.4 ml Exam Review of Systems: CONSTITUTIONAL: No fevers, chills. PULMONARY: intubated CARDIOVASCULAR: No obvious chest pain/palpitations GASTROINTESTINAL: No nausea/vomiting. GENITOURINARY: No hematuria/dysuria. MUSCULOSKELETAL: No obvioous myagias/arthalgias. PSYCHIATRIC: No documented depression. NEUROLOGIC: s/p seizure focal yesterday Constitutional: alert, oriented Psych: no complaints Head: normocephalic ENMT: mucosa pink and moist Neck: jvd (9 cm water), supple Respiratory: other (upper airway rhoncherous sounds) Cardiovascular: irregular rhythm (tachycardic) Gastrointestinal: non-tender, soft Musculoskeletal: muscle tone (normal) Extremities: edema (none) 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: other (No focal deficits) Results Result Diagram: 10/14/16 0445 10/14/16 0445 Results 24 hrs Laboratory Tests Test 10/13/16 13:46 10/13/16 17:52 10/13/16 20:35 10/13/16 20:42 Bedside Glucose 265 H 214 229 H Activated Partial Thromboplast Time 62.2 H Test 10/14/16 00:53 10/14/16 04:30 10/14/16 04:45 10/14/16 07:00 Bedside Glucose 154 187 White Blood Count 7.3 Red Blood Count 3.16 L Hemoglobin 9.9 L Hematocrit 30.4 L Mean Corpuscular Volume 96.2 Mean Corpuscular Hemoglobin 31.3 Mean Corpuscular Hemoglobin Concent 32.6 Red Cell Distribution Width 17.4 H Platelet Count 113 L Mean Platelet Volume 11.0 H Neutrophils % 78.7 H Lymphocytes % 8.3 L Monocytes % 9.4 Eosinophils % 2.5 Basophils % 0.3 Nucleated Red Blood Cells % 0.0 Neutrophils # 5.7 Lymphocytes # 0.6 L Monocytes # 0.7 Eosinophils # 0.2 Basophils # 0.0 Nucleated Red Blood Cells # 0.0 Activated Partial Thromboplast Time 61.8 H Sodium Level 144 Potassium Level 4.1 Chloride Level 108 Carbon Dioxide Level 26 Anion Gap 14 Blood Urea Nitrogen 31 H Creatinine 1.10 Glucose Level 183 Calcium Level 8.9 Phosphorus Level 3.3 Magnesium Level 1.7 Blood Gas Specimen Source Blood arterial Arterial Blood Date Drawn 10/14/2016 7:50:29 AM Arterial Blood pH (Temp corrected) 7.489 H Arterial Blood pCO2 (Temp correct) 35.7 Arterial Blood pO2 (Temp corrected) 106.0 H Arterial Blood HCO3 26.5 H Arterial Blood Base Excess 3.2 H Arterial Blood Oxygen Saturation 97.7 Vicente Test ACCEPTAB Arterial Blood Gas Puncture Site Left Radial Arterial Blood Carboxyhemoglobin 0.3 Arterial Blood Methemoglobin 0.3 Blood Gas A-a O2 Differential 102.1 H Oxyhemoglobin Percent 97.1 Total Hemoglobin 11.2 L Blood Gas Temperature 37.0 Blood Gas Respiration Rate 20.0 Blood Gas Actual Respiration Rate 20 Blood Gas Modality VENT - AC FiO2 35.0 Blood Gas Tidal Volume 500.0 Blood Gas Low PEEP Setting 5.0 Blood Gas Notified Whom K B Blood Gas Notified Time 10/14/2016 8:06:23 AM Test 10/14/16 08:21 10/14/16 12:18 Bedside Glucose 172 195 Medications Medications Current Medications Eye Lubricant (Artificial Tears Oph) 1 drop TID BOTH EYES Last administered on 10/14/16 12:20; Admin Dose 1 DROP; Start 10/09/16 at 09:00 Famotidine 20 mg 20 mg DAILY IV Last administered on 10/14/16 08:11; Admin Dose 20 MG; Start 10/09/16 at 09:00 Levetiracetam (Keppra 500 Mg/ 100ml (Pmx)) 100 ml @ 400 mls/hr Q12 IVPB Last administered on 10/14/16 08:11; Admin Dose 400 MLS/HR; Start 10/09/16 at 21:00 Aspirin 81 mg 81 mg DAILY PO Last administered on 10/14/16 08:10; Admin Dose 81 MG; Start 10/10/16 at 09:00 Propofol (Diprivan) 100 ml @ 0 mls/hr TITRATE IV ; Start 10/10/16 at 01:00 Miscellaneous Information 1 ea NOTE XX ; Start 10/10/16 at 02:00 Glucose (Glutose) 15 gm Q15M PRN PO DECREASED GLUCOSE; Start 10/10/16 at 02:00 Glucose (Glutose) 22.5 gm Q15M PRN PO DECREASED GLUCOSE; Start 10/10/16 at 02: 00 Dextrose (D50w Syringe) 25 ml Q15M PRN IV DECREASED GLUCOSE; Start 10/10/16 at 02:00 Dextrose (D50w Syringe) 50 ml Q15M PRN IV DECREASED GLUCOSE; Start 10/10/16 at 02:00 Glucagon (Glucagen) 1 mg Q15M PRN IM DECREASED GLUCOSE; Start 10/10/16 at 02:00 Glucose (Glutose) 15 gm Q15M PRN BUCCAL DECREASED GLUCOSE; Start 10/10/16 at 02 :00 IV Flush (NS 10 ml) 10 ml PRN PRN IV IV PROTOCOL; Start 10/10/16 at 12:30 Albuterol 4 puff 4 puff Q4 PRN INH for wheezing Last administered on 10/14/16 09:03; Admin Dose 4 PUFF; Start 10/10/16 at 13:30 Potassium Chloride/Sodium Chloride (KCl/1/2 NS) 1,020 ml @ 75 mls/hr [id number] IV Last administered on 10/14/16 05:49; Admin Dose 75 MLS/HR; Start 10/11/16 at 12:00 Metoprolol Tartrate 25 mg 25 mg BID PO Last administered on 10/14/16 08:13; Admin Dose 25 MG; Start 10/12/16 at 21:00 Piperacillin Sod/ Tazobactam Sod 50 ml @ 100 mls/hr Q6 IVPB Last administered on 10/14/16 12:20; Admin Dose 100 MLS/HR; Start 10/12/16 at 18:00 Vancomycin HCl/ Sodium Chloride (Vancocin/NS) 250 ml @ 83.333 mls/ hr Q24H IVPB Last administered on 10/13/16 15:39; Admin Dose 83.333 MLS/HR; Start at 16:00 Furosemide (Lasix) 40 mg DAILY IV Last administered on 10/14/16 08:11; Admin Dose 40 MG; Start 10/13/16 at 09:30 Acetaminophen (Tylenol Tab) 650 mg Q6H PRN PO PAIN AND OR ELEVATED TEMP Last administered on 10/14/16 08:11; Admin Dose 650 MG; Start 10/13/16 at 15:00 Insulin Glargine (Lantus) 10 unit DAILY@20 SC Last administered on 10/13/16 20 :44; Admin Dose 10 UNIT; Start 10/13/16 at 20:00 Insulin Aspart (Novolog Insulin Pen) NOVOLOG *MODERATE* ALGORI... Q4 SC Last administered on 10/14/16 12:34; Admin Dose 4 UNIT; Start 10/13/16 at 21:00 Lorazepam (Ativan) 1 mg Q6H PRN IV SEIZURES; Start 10/13/16 at 23:30 ESTEFANI BORREGO Oct 14, 2016 12:46
[2016-10-14] MEDS ORDERED: DIGOXIN 500 MCG INJ IV ONE (13:00)
--- NOTE | 2016-10-14 13:13 | CONS ---
Date/Time of Note Date/Time of Note DATE: 10/14/16 TIME: 12:57 Assessment/Plan Assessment/Plan Chief Complaint/Hosp Course cardiorespiratory arrest Problems: Additional Assessment/Plan Patient is a 75 years old male admitted following found to have cardiorespiratory arrest requiring resuscitation. CT brain showed atrophy, nothing acute. He was intubated and ventilated and is currently in ICU. EEG showed generalized bihemispheric background slowing without seizure activity. Examination showed intubated and ventilated patient, unresponsive, non communicative, Corneals are absent, gag is present, intermittent seizure like activity. 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 Plan: 1 MRI of brain 2 Repeat EEG in AM 3 Start Keppra 500 mg IV q 12 hours 4 Discussed with patient's daughter who is present in the room 5 Will follow Consultation Date/Type/Reason Admit Date/Time Oct 10, 2016 at 03:49 Reason for Consultation Cardiorespiratory arrest Referring Provider: ROJAS VALIENTE DO Hx of Present Illness Patient is a 75 years old male admitted following found to have cardiorespiratory arrest requiring resuscitation. CT brain showed atrophy, nothing acute. He was intubated and ventilated and is currently in ICU. EEG showed generalized bihemispheric background slowing without seizure activity. Subjective hx not possible: pt critical status Psychological: no complaints Past Medical History Medical History: diabetes Social History Smoking Status: Unknown if ever smoked Exam/Review of Systems Vital Signs Vitals Vital Signs Date Time Temp Pulse Resp B/P Pulse Ox O2 Delivery O2 Flow Rate FiO2 10/14/16 11:35 35 10/14/16 11:31 104 20 100 10/14/16 10:00 95/66 Mechanical Ventilator 10/14/16 08:00 101.6 Intake and Output 10/13/16 10/13/16 10/14/16 14:59 22:59 06:59 Intake Total 1476.5 ml 1462.4 ml 1452.4 ml Output Total 2240 ml 880 ml 500 ml Balance -763.5 ml 582.4 ml 952.4 ml Exam Constitutional: non-verbal, other (intubated, ventilated) Head: atraumatic, normocephalic Eyes: EOMI, nl conjunctiva, nl lids, nl sclera ENMT: nl external ears & nose, nl lips & teeth, nl nasal mucosa & septum Neck: non-tender, supple Respiratory: other (Ventilated) Gastrointestinal: soft Extremities: normal pulses 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: other (Intubated, ventilated, absent corneal and doll's eyes, gag reflex is present, Motor : no withdrawl to noxious stimuli, ), unresponsive (limited examination, intubated, ventilated) Skin: nl turgor Lymph: nl lymph nodes Results Result Diagram: 10/14/16 0445 10/14/16 0445 Results 24 hrs Laboratory Tests Test 10/13/16 13:46 10/13/16 17:52 10/13/16 20:35 10/13/16 20:42 Bedside Glucose 265 H 214 229 H Activated Partial Thromboplast Time 62.2 H Test 10/14/16 00:53 10/14/16 04:30 10/14/16 04:45 10/14/16 07:00 Bedside Glucose 154 187 White Blood Count 7.3 Red Blood Count 3.16 L Hemoglobin 9.9 L Hematocrit 30.4 L Mean Corpuscular Volume 96.2 Mean Corpuscular Hemoglobin 31.3 Mean Corpuscular Hemoglobin Concent 32.6 Red Cell Distribution Width 17.4 H Platelet Count 113 L Mean Platelet Volume 11.0 H Neutrophils % 78.7 H Lymphocytes % 8.3 L Monocytes % 9.4 Eosinophils % 2.5 Basophils % 0.3 Nucleated Red Blood Cells % 0.0 Neutrophils # 5.7 Lymphocytes # 0.6 L Monocytes # 0.7 Eosinophils # 0.2 Basophils # 0.0 Nucleated Red Blood Cells # 0.0 Activated Partial Thromboplast Time 61.8 H Sodium Level 144 Potassium Level 4.1 Chloride Level 108 Carbon Dioxide Level 26 Anion Gap 14 Blood Urea Nitrogen 31 H Creatinine 1.10 Glucose Level 183 Calcium Level 8.9 Phosphorus Level 3.3 Magnesium Level 1.7 Blood Gas Specimen Source Blood arterial Arterial Blood Date Drawn 10/14/2016 7:50:29 AM Arterial Blood pH (Temp corrected) 7.489 H Arterial Blood pCO2 (Temp correct) 35.7 Arterial Blood pO2 (Temp corrected) 106.0 H Arterial Blood HCO3 26.5 H Arterial Blood Base Excess 3.2 H Arterial Blood Oxygen Saturation 97.7 Vicente Test ACCEPTAB Arterial Blood Gas Puncture Site Left Radial Arterial Blood Carboxyhemoglobin 0.3 Arterial Blood Methemoglobin 0.3 Blood Gas A-a O2 Differential 102.1 H Oxyhemoglobin Percent 97.1 Total Hemoglobin 11.2 L Blood Gas Temperature 37.0 Blood Gas Respiration Rate 20.0 Blood Gas Actual Respiration Rate 20 Blood Gas Modality VENT - AC FiO2 35.0 Blood Gas Tidal Volume 500.0 Blood Gas Low PEEP Setting 5.0 Blood Gas Notified Whom K B Blood Gas Notified Time 10/14/2016 8:06:23 AM Test 10/14/16 08:21 10/14/16 12:18 Bedside Glucose 172 195 Medications Medications Current Medications Eye Lubricant (Artificial Tears Oph) 1 drop TID BOTH EYES Last administered on 10/14/16 12:20; Admin Dose 1 DROP; Start 10/09/16 at 09:00 Famotidine 20 mg 20 mg DAILY IV Last administered on 10/14/16 08:11; Admin Dose 20 MG; Start 10/09/16 at 09:00 Levetiracetam (Keppra 500 Mg/ 100ml (Pmx)) 100 ml @ 400 mls/hr Q12 IVPB Last administered on 10/14/16 08:11; Admin Dose 400 MLS/HR; Start 10/09/16 at 21:00 Aspirin 81 mg 81 mg DAILY PO Last administered on 10/14/16 08:10; Admin Dose 81 MG; Start 10/10/16 at 09:00 Propofol (Diprivan) 100 ml @ 0 mls/hr TITRATE IV ; Start 10/10/16 at 01:00 Miscellaneous Information 1 ea NOTE XX ; Start 10/10/16 at 02:00 Glucose (Glutose) 15 gm Q15M PRN PO DECREASED GLUCOSE; Start 10/10/16 at 02:00 Glucose (Glutose) 22.5 gm Q15M PRN PO DECREASED GLUCOSE; Start 10/10/16 at 02: 00 Dextrose (D50w Syringe) 25 ml Q15M PRN IV DECREASED GLUCOSE; Start 10/10/16 at 02:00 Dextrose (D50w Syringe) 50 ml Q15M PRN IV DECREASED GLUCOSE; Start 10/10/16 at 02:00 Glucagon (Glucagen) 1 mg Q15M PRN IM DECREASED GLUCOSE; Start 10/10/16 at 02:00 Glucose (Glutose) 15 gm Q15M PRN BUCCAL DECREASED GLUCOSE; Start 10/10/16 at 02 :00 IV Flush (NS 10 ml) 10 ml PRN PRN IV IV PROTOCOL; Start 10/10/16 at 12:30 Albuterol 4 puff 4 puff Q4 PRN INH for wheezing Last administered on 10/14/16 09:03; Admin Dose 4 PUFF; Start 10/10/16 at 13:30 Potassium Chloride/Sodium Chloride (KCl/1/2 NS) 1,020 ml @ 75 mls/hr [id number] IV Last administered on 10/14/16 05:49; Admin Dose 75 MLS/HR; Start 10/11/16 at 12:00 Metoprolol Tartrate 25 mg 25 mg BID PO Last administered on 10/14/16 08:13; Admin Dose 25 MG; Start 10/12/16 at 21:00 Piperacillin Sod/ Tazobactam Sod 50 ml @ 100 mls/hr Q6 IVPB Last administered on 10/14/16 12:20; Admin Dose 100 MLS/HR; Start 10/12/16 at 18:00 Vancomycin HCl/ Sodium Chloride (Vancocin/NS) 250 ml @ 83.333 mls/ hr Q24H IVPB Last administered on 10/13/16 15:39; Admin Dose 83.333 MLS/HR; Start at 16:00 Furosemide (Lasix) 40 mg DAILY IV Last administered on 10/14/16 08:11; Admin Dose 40 MG; Start 10/13/16 at 09:30 Acetaminophen (Tylenol Tab) 650 mg Q6H PRN PO PAIN AND OR ELEVATED TEMP Last administered on 10/14/16 08:11; Admin Dose 650 MG; Start 10/13/16 at 15:00 Insulin Glargine (Lantus) 10 unit DAILY@20 SC Last administered on 10/13/16 20 :44; Admin Dose 10 UNIT; Start 10/13/16 at 20:00 Insulin Aspart (Novolog Insulin Pen) NOVOLOG *MODERATE* ALGORI... Q4 SC Last administered on 10/14/16 12:34; Admin Dose 4 UNIT; Start 10/13/16 at 21:00 Lorazepam (Ativan) 1 mg Q6H PRN IV SEIZURES; Start 10/13/16 at 23:30 Digoxin (Digoxin) 250 mcg NOW ONCE IV ; Start 10/14/16 at 13:00; Stop 10/14/16 at 13:01 KATRIN VILLEGAS MD Oct 14, 2016 13:08
--- NOTE | 2016-10-14 15:58 | PN ---
DATE: 10/14/2016 SUBJECTIVE: The patient is unresponsive on mechanical ventilation, presently on no sedation. VITAL SIGNS: Heart rate 98 per minute, regular, FIO2 of 35%, pulse ox of 100, blood pressure 102/64 . HEENT: Head normocephalic. Pupils 3 mm with sluggish response to light. CHEST: Few wheezes heard anteriorly. HEART: S1, S2 with no definite gallops, mid systolic murmur, unchanged. ABDOMEN: Slightly distended. Bowel sounds active. EXTREMITIES: No edema. Warm. Homans sign is negative. LABORATORY DATA: WBC count 7.3, hematocrit 30.4, platelet count of 113,000. Sodium 144, potassium 4.1, BUN 31, creatinine 1.10, glucose levels 187, 172 and 195. IMPRESSION: 1. Status post cardiopulmonary arrest with anoxic encephalopathy. 2. Hypernatremia, resolved. 3. Severe chronic obstructive pulmonary disease with likely aspiration. 4. Staph bacteremia. 5. History of atrial fibrillation. 6. Diabetes mellitus type 2, well controlled. 7. Status post mitral and aortic valve replacement. PLAN: Continue vancomycin and Zosyn for now. We will request ID consultation, Dr. Randolph and ___ _ neurology consultation and recommendation much appreciated. We will await repeat MRI and EEG. ADDENDUM: On exam, the patient has frequent hiccups. We will closely follow his condition. Dictated By: ALEXANDR MOULTON MD, SR/NTS Conf#: [id number] DID#: [id number]
[2016-10-14] MEDS: VANCOMYCIN 1.25 GM in SOD CHLORIDE 0.9% 250 ML IVPB SCH (16:39)
[2016-10-14] MEDS: INSULIN GLARGINE [LANtus] 3 ML PEN SC SCH (20:55)
--- NOTE | 2016-10-14 21:52 | RADRPT ---
PROCEDURE: MRI Brain with and without contrast. CLINICAL INDICATION: Encephalopathy status post cardiac arrest. TECHNIQUE: An MRI of the brain was performed with and without contrast utilizing the following seq uences: Sagittal T1 weighted, sagittal FLAIR, axial T1, axial FLAIR, axial T2 weighted, axial diffu chago weighted (EPI technique [id number]), axial ADC mapping, and post contrast axial and coronal T1 weig hted, and axial FLAIR. 10 cc of Magnevist was given intravenously without complication. The images were reviewed on a high-resolution PACS workstation. COMPARISON: CT head 10/09/2016 FINDINGS: Diffusion weighted sequences demonstrate no evidence of acute lacunar or lobar infarction. There is no intracranial hemorrhage, extra-axial fluid collection, mass lesion, midline shift or hydrocephal ous. There are subtle areas of T1 hyperintensity involving the bilateral caudate lobes as well as t he putamen. There is no evidence of hyperdense to suggest cortical laminar necrosis. There is mild prominence of the cerebral sulci, lateral and third ventricles. There is a persistent cavum septum pellucidum, normal variant. There are mild to moderate punctate and patchy periventricular and sub cortical white matter lesions, likely related to chronic microangiopathic changes.. Normal flow voi ds are visible the proximal intracranial arteries and dural sinuses, indicating patency. The midlin e structures are intact. The postcontrast images show no abnormal parenchymal, leptomeningeal, or du ral enhancement. The paranasal sinuses, mastoid air cells and middle ear cavities are normally aerated. There is lef t-sided aphakia. The orbits, calvarium and extracranial soft tissues are normal in appearance. IMPRESSION: 1. No acute intracranial abnormality. No intracranial hemorrhage, enhancing mass lesion, infarctio n or hydrocephalous. 2. Mild peripheral and central cerebral volume loss. 3. Subtle areas of T1 hyperintensity involving the bilateral caudate and globus palatine, which may be sequelae of patient's hypoxia. No definite evidence of infarct or volume loss at this time. Co ntinued attention on follow-up is recommended. 4. Mild to moderate punctate and patchy periventricular and subcortical white matter lesions, likel y related to chronic microangiopathic changes. RPTAT: HGAS .Mansoor Willett MD, MD Date Time Electronically viewed and signed by .Mansoor Willett MD, on 10/14/2016 21:51 .S/
[2016-10-15] VITALS (36 sets, daily range): BP systolic 86–130; BP diastolic 52–76; PULSE 83–106; RESP 14–35
[2016-10-15] MEDS: PIPER-TAZO 2.25 GM (PMX) 50 ML IVPB SCH ×4 (00:45→17:50)
[2016-10-15] MEDS: INSULIN ASPART [NOVOLOG] 3 ML PEN SC SCH ×6 (00:59→21:04)
[2016-10-15] MEDS: ACETAMINOPHEN 325 MG TAB PO PRN ×3 (01:05→22:04)
[2016-10-15 04:58] LABS: ADD SCAN DIFF NO
[2016-10-15 05:06] LABS: BASOPHILS % 0.2 % (0.0-2.0); EOSINOPHILS # 0.2 10^3/ul (0.0-0.5); EOSINOPHILS % 2.1 % (0.0-7.0); HEMOGLOBIN 9.1 g/dl (14.0-18.0); LYMPHOCYTES # 0.7 10^3/ul (0.8-2.9); LYMPHOCYTES % 7.8 % (15.0-51.0); MEAN CORPUSCULAR HEMOGLOBIN 30.6 pg (29.0-33.0); MEAN CORPUSCULAR HGB CONC 31.4 g/dl (32.0-37.0); MEAN CORPUSCULAR VOLUME 97.6 fl (82.0-101.0); MEAN PLATELET VOLUME 11.2 fl (7.4-10.4); MONOCYTE # 0.9 10^3/ul (0.3-0.9); MONOCYTES % 9.2 % (0.0-11.0); NEUTROPHIL # 7.5 10^3/ul (1.6-7.5); PLATELET COUNT 106 10^3/UL (140-415); RED BLOOD COUNT 2.97 10^6/ul (4.70-6.10); RED CELL DISTRIBUTION WIDTH 17.6 % (11.5-14.5); WHITE BLOOD COUNT 9.4 10^3/ul (4.8-10.8)
[2016-10-15 05:14] LABS: POTASSIUM 3.9 mmol/L (3.5-5.1)
[2016-10-15 05:17] LABS: CREATININE 1.16 mg/dl (0.61-1.24)
[2016-10-15 05:18] LABS: CALCIUM 8.7 mg/dl (8.4-10.2); MAGNESIUM 1.8 mg/dl (1.7-2.5)
[2016-10-15] MEDS: ARTIFICIAL TEARS 15 ML OPH BOTH EYES SCH ×3 (09:09→20:56)
--- NOTE | 2016-10-15 09:48 | CONS ---
Date/Time of Note Date/Time of Note DATE: 10/15/16 TIME: 09:35 Assessment/Plan Assessment/Plan Chief Complaint/Hosp Course 1) Acute MN with likely anoxic brain injury MRI done and no acute bleeds but likely signs of anoxic injury prognosis is poor 2) development of L side infiltrate/effusion procalcitonin is pending Klebsiella is growing in sputum cx is very sensitive no MRSA continue with zosyn and d/c vanco get chest u/s to see if there is much fluid on L side or if mostly infiltrate 3) CoNS in blood cx only one set and this likely represents contamination d/c vanco and repeat blood cx tomorrow 4) ARF improving with hydration 5) DM 6) seizures none overnight or today so far Problems: Consultation Date/Type/Reason Admit Date/Time Oct 10, 2016 at 03:49 Date of Consultation: Oct 15, 2016 Type of Consultation: ID Hx of Present Illness pt is unable to give any history pt was brought to the hospital after a witnessed MN and resucitation by his daughter He had a non-stemi and was intubated and remains so He had ARF which has improved spoke to nurse he has pinkish secretions upon suctioning He has no diarrhea and is tolerating his NGT feeds He is off sedation but has no response to stimuli there are reports that he has had seizures while here in the hospital Psychological: no complaints Past Medical History COPD, DM, CVA, CAD Medical History: diabetes Past Surgical History AoVR, MV replacement, CABG, choleycystectomy Social History Smoking Status: Unknown if ever smoked Exam/Review of Systems Vital Signs Vitals Vital Signs Date Time Temp Pulse Resp B/P Pulse Ox O2 Delivery O2 Flow Rate FiO2 10/15/16 09:00 100.8 96 23 114/66 99 Mechanical Ventilator 10/15/16 08:00 30 Intake and Output 10/14/16 10/14/16 10/15/16 15:00 23:00 07:00 Intake Total 1048.4 ml 1781.4 ml 1512.4 ml Output Total 1870 ml 800 ml 650 ml Balance -821.6 ml 981.4 ml 862.4 ml Exam Constitutional: non-verbal Head: normocephalic Eyes: nl sclera, other (both pupils react) Respiratory: other (bilateral coarse rhonchi) Cardiovascular: regular rate and rhythm Gastrointestinal: non-tender, soft Extremities: other (no edema) 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: other (no response) Results Result Diagram: 10/15/16 0410 10/15/16 0410 Results 24 hrs Laboratory Tests Test 10/14/16 12:18 10/14/16 17:25 10/14/16 20:47 10/15/16 00:54 Bedside Glucose 195 223 H 158 186 Test 10/15/16 04:10 10/15/16 05:24 10/15/16 09:06 White Blood Count 9.4 # Red Blood Count 2.97 L Hemoglobin 9.1 L Hematocrit 29.0 L Mean Corpuscular Volume 97.6 Mean Corpuscular Hemoglobin 30.6 Mean Corpuscular Hemoglobin Concent 31.4 L Red Cell Distribution Width 17.6 H Platelet Count 106 L Mean Platelet Volume 11.2 H Neutrophils % 80.0 H Lymphocytes % 7.8 L Monocytes % 9.2 Eosinophils % 2.1 Basophils % 0.2 Nucleated Red Blood Cells % 0.0 Neutrophils # 7.5 Lymphocytes # 0.7 L Monocytes # 0.9 Eosinophils # 0.2 Basophils # 0.0 Nucleated Red Blood Cells # 0.0 Activated Partial Thromboplast Time 61.7 H Sodium Level 139 Potassium Level 3.9 Chloride Level 103 Carbon Dioxide Level 27 Anion Gap 13 Blood Urea Nitrogen 30 H Creatinine 1.16 Glucose Level 162 Calcium Level 8.7 Phosphorus Level 4.0 Magnesium Level 1.8 Bedside Glucose 159 186 Medications Medications Current Medications Eye Lubricant (Artificial Tears Oph) 1 drop TID BOTH EYES Last administered on 10/15/16 09:09; Admin Dose 1 DROP; Start 10/09/16 at 09:00 Famotidine (Pepcid Iv) 20 mg DAILY IV Last administered on 10/14/16 08:11; Admin Dose 20 MG; Start 10/09/16 at 09:00 Aspirin 81 mg 81 mg DAILY PO Last administered on 10/14/16 08:10; Admin Dose 81 MG; Start 10/10/16 at 09:00 Propofol (Diprivan) 100 ml @ 0 mls/hr TITRATE IV ; Start 10/10/16 at 01:00 Miscellaneous Information 1 ea NOTE XX ; Start 10/10/16 at 02:00 Glucose (Glutose) 15 gm Q15M PRN PO DECREASED GLUCOSE; Start 10/10/16 at 02:00 Glucose (Glutose) 22.5 gm Q15M PRN PO DECREASED GLUCOSE; Start 10/10/16 at 02: 00 Dextrose (D50w Syringe) 25 ml Q15M PRN IV DECREASED GLUCOSE; Start 10/10/16 at 02:00 Dextrose (D50w Syringe) 50 ml Q15M PRN IV DECREASED GLUCOSE; Start 10/10/16 at 02:00 Glucagon (Glucagen) 1 mg Q15M PRN IM DECREASED GLUCOSE; Start 10/10/16 at 02:00 Glucose (Glutose) 15 gm Q15M PRN BUCCAL DECREASED GLUCOSE; Start 10/10/16 at 02 :00 IV Flush (NS 10 ml) 10 ml PRN PRN IV IV PROTOCOL; Start 10/10/16 at 12:30 Albuterol 4 puff 4 puff Q4 PRN INH for wheezing Last administered on 10/14/16 13:32; Admin Dose 4 PUFF; Start 10/10/16 at 13:30 Potassium Chloride/Sodium Chloride (KCl/1/2 NS) 1,020 ml @ 75 mls/hr [id number] IV Last administered on 10/14/16 22:30; Admin Dose 75 MLS/HR; Start 10/11/16 at 12:00 Metoprolol Tartrate 25 mg 25 mg BID PO Last administered on 10/14/16 20:45; Admin Dose 25 MG; Start 10/12/16 at 21:00 Piperacillin Sod/ Tazobactam Sod 50 ml @ 100 mls/hr Q6 IVPB Last administered on 10/15/16 05:25; Admin Dose 100 MLS/HR; Start 10/12/16 at 18:00 Vancomycin HCl/ Sodium Chloride (Vancocin/NS) 250 ml @ 83.333 mls/ hr Q24H IVPB Last administered on 10/14/16 16:39; Admin Dose 83.333 MLS/HR; Start at 16:00 Furosemide (Lasix) 40 mg DAILY IV Last administered on 10/14/16 08:11; Admin Dose 40 MG; Start 10/13/16 at 09:30 Acetaminophen (Tylenol Tab) 650 mg Q6H PRN PO PAIN AND OR ELEVATED TEMP Last administered on 10/15/16 01:05; Admin Dose 650 MG; Start 10/13/16 at 15:00 Insulin Glargine (Lantus) 10 unit DAILY@20 SC Last administered on 10/14/16 20 :55; Admin Dose 10 UNIT; Start 10/13/16 at 20:00 Insulin Aspart (Novolog Insulin Pen) NOVOLOG *MODERATE* ALGORI... Q4 SC Last administered on 10/15/16 09:08; Admin Dose 4 UNIT; Start 10/13/16 at 21:00 Lorazepam 1 mg 1 mg Q6H PRN IV SEIZURES; Start 10/13/16 at 23:30 Levetiracetam (Keppra 500 Mg/ 100ml (Pmx)) 100 ml @ 400 mls/hr Q12 IVPB Last administered on 10/14/16 20:48; Admin Dose 400 MLS/HR; Start 10/14/16 at 21:00 Miscellaneous Information (*Rx Drug Level Order Reminder*) VANCO TR LEVEL PRIOR... ONCE ONCE XX ; Start 10/15/16 at 15:00; Stop 10/15/16 at 15:01 MANISH MULLINS MD Oct 15, 2016 09:46
[2016-10-15] MEDS: METOPROLOL 25 MG TAB PO SCH ×2 (09:53→20:56)
[2016-10-15] MEDS: FUROSEMIDE 40 MG INJ IV SCH (09:53)
[2016-10-15] MEDS: FAMOTIDINE 20 MG INJ IV SCH (09:53)
[2016-10-15] MEDS: ASPIRIN 81 MG TAB PO SCH (09:53)
[2016-10-15] MEDS: LEVETIRACETAM 500 MG (PMX) 100 ML IVPB SCH ×2 (09:54→20:56)
--- NOTE | 2016-10-15 10:05 | CONS ---
Date/Time of Note Date/Time of Note DATE: 10/15/16 TIME: 10:03 Assessment/Plan Assessment/Plan Additional Assessment/Plan Ventilator settings; AC of 16, tidal volume 500, PEEP of 5, 30% FiO2. Next Assessment recommendations; 1. Patient admitted with cardiac arrest status post CPR required hypothermia protocol. 2. Likely severe anoxic brain injury. 3. Possibly some element of aspiration pneumonia. 4. Hyponatremia with interval resolution. 5. History of cardiac arrhythmia, diabetes and hypertension. Continue current treatment. Weaning from ventilator with depend upon adequate mental status recovery. Prognosis is guarded. Consultation Date/Type/Reason Admit Date/Time Oct 10, 2016 at 03:49 Initial Consult Date 10/15/16 Type of Consultation: Pulmonary/critical care Referring Provider: ROJAS VALIENTE DO 24 HR Interval Summary Free Text/Dictation Patient condition remains critical. No overt seizure activity noted. General exam; elderly male, orally intubated, unresponsive. Exam/Review of Systems Vital Signs Vitals Vital Signs Date Time Temp Pulse Resp B/P Pulse Ox O2 Delivery O2 Flow Rate FiO2 10/15/16 09:00 100.8 96 23 114/66 99 Mechanical Ventilator 10/15/16 08:00 30 Intake and Output 10/14/16 10/14/16 10/15/16 15:00 23:00 07:00 Intake Total 1048.4 ml 1781.4 ml 1512.4 ml Output Total 1870 ml 800 ml 650 ml Balance -821.6 ml 981.4 ml 862.4 ml Exam HEENT exam is; supple neck, no JVD. No lymphadenopathy. Midline trachea. No thyromegaly. Orally intubated. Patient has fair dentition. Has a left intraocular lens implant. Chest examination; clear to auscultation. S1-S2 audible, no murmurs. Regular rhythm. Abdomen examination; soft, nondistended. No organomegaly. Bowel sounds audible. Extremity examination; no peripheral edema. 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 Results Result Diagram: 10/15/16 0410 10/15/16 0410 Results 24 hrs Laboratory Tests Test 10/14/16 12:18 10/14/16 17:25 10/14/16 20:47 10/15/16 00:54 Bedside Glucose 195 223 H 158 186 Test 10/15/16 04:10 10/15/16 05:24 10/15/16 09:06 White Blood Count 9.4 # Red Blood Count 2.97 L Hemoglobin 9.1 L Hematocrit 29.0 L Mean Corpuscular Volume 97.6 Mean Corpuscular Hemoglobin 30.6 Mean Corpuscular Hemoglobin Concent 31.4 L Red Cell Distribution Width 17.6 H Platelet Count 106 L Mean Platelet Volume 11.2 H Neutrophils % 80.0 H Lymphocytes % 7.8 L Monocytes % 9.2 Eosinophils % 2.1 Basophils % 0.2 Nucleated Red Blood Cells % 0.0 Neutrophils # 7.5 Lymphocytes # 0.7 L Monocytes # 0.9 Eosinophils # 0.2 Basophils # 0.0 Nucleated Red Blood Cells # 0.0 Activated Partial Thromboplast Time 61.7 H Sodium Level 139 Potassium Level 3.9 Chloride Level 103 Carbon Dioxide Level 27 Anion Gap 13 Blood Urea Nitrogen 30 H Creatinine 1.16 Glucose Level 162 Calcium Level 8.7 Phosphorus Level 4.0 Magnesium Level 1.8 Bedside Glucose 159 186 Medications Medications Current Medications Eye Lubricant (Artificial Tears Oph) 1 drop TID BOTH EYES Last administered on 10/15/16 09:09; Admin Dose 1 DROP; Start 10/09/16 at 09:00 Famotidine (Pepcid Iv) 20 mg DAILY IV Last administered on 10/15/16 09:53; Admin Dose 20 MG; Start 10/09/16 at 09:00 Aspirin 81 mg 81 mg DAILY PO Last administered on 10/15/16 09:53; Admin Dose 81 MG; Start 10/10/16 at 09:00 Propofol (Diprivan) 100 ml @ 0 mls/hr TITRATE IV ; Start 10/10/16 at 01:00 Miscellaneous Information 1 ea NOTE XX ; Start 10/10/16 at 02:00 Glucose (Glutose) 15 gm Q15M PRN PO DECREASED GLUCOSE; Start 10/10/16 at 02:00 Glucose (Glutose) 22.5 gm Q15M PRN PO DECREASED GLUCOSE; Start 10/10/16 at 02: 00 Dextrose (D50w Syringe) 25 ml Q15M PRN IV DECREASED GLUCOSE; Start 10/10/16 at 02:00 Dextrose (D50w Syringe) 50 ml Q15M PRN IV DECREASED GLUCOSE; Start 10/10/16 at 02:00 Glucagon (Glucagen) 1 mg Q15M PRN IM DECREASED GLUCOSE; Start 10/10/16 at 02:00 Glucose (Glutose) 15 gm Q15M PRN BUCCAL DECREASED GLUCOSE; Start 10/10/16 at 02 :00 IV Flush (NS 10 ml) 10 ml PRN PRN IV IV PROTOCOL; Start 10/10/16 at 12:30 Albuterol 4 puff 4 puff Q4 PRN INH for wheezing Last administered on 10/14/16 13:32; Admin Dose 4 PUFF; Start 10/10/16 at 13:30 Potassium Chloride/Sodium Chloride (KCl/1/2 NS) 1,020 ml @ 75 mls/hr [id number] IV Last administered on 10/14/16 22:30; Admin Dose 75 MLS/HR; Start 10/11/16 at 12:00 Metoprolol Tartrate 25 mg 25 mg BID PO Last administered on 10/15/16 09:53; Admin Dose 25 MG; Start 10/12/16 at 21:00 Piperacillin Sod/ Tazobactam Sod (Zosyn 2.25gm/ 50ml (Pmx)) 50 ml @ 100 mls/hr Q6 IVPB Last administered on 10/15/16 05:25; Admin Dose 100 MLS/HR; Start at 18:00 Furosemide (Lasix) 40 mg DAILY IV Last administered on 10/15/16 09:53; Admin Dose 40 MG; Start 10/13/16 at 09:30 Acetaminophen (Tylenol Tab) 650 mg Q6H PRN PO PAIN AND OR ELEVATED TEMP Last administered on 10/15/16 09:53; Admin Dose 650 MG; Start 10/13/16 at 15:00 Insulin Glargine (Lantus) 10 unit DAILY@20 SC Last administered on 10/14/16 20 :55; Admin Dose 10 UNIT; Start 10/13/16 at 20:00 Insulin Aspart (Novolog Insulin Pen) NOVOLOG *MODERATE* ALGORI... Q4 SC Last administered on 10/15/16 09:08; Admin Dose 4 UNIT; Start 10/13/16 at 21:00 Lorazepam 1 mg 1 mg Q6H PRN IV SEIZURES; Start 10/13/16 at 23:30 Levetiracetam (Keppra 500 Mg/ 100ml (Pmx)) 100 ml @ 400 mls/hr Q12 IVPB Last administered on 10/15/16t 09:54; Admin Dose 400 MLS/HR; Start 10/14/16 at 21:00 Miscellaneous Information (*Rx Drug Level Order Reminder*) VANCO TR LEVEL PRIOR... ONCE ONCE XX ; Start 10/15/16 at 15:00; Stop 10/15/16 at 15:01 MARIE LYNCH Oct 15, 2016 10:05
--- NOTE | 2016-10-15 11:03 | CONS ---
Date/Time of Note Date/Time of Note DATE: 10/15/16 TIME: 10:59 Assessment/Plan Assessment/Plan Chief Complaint/Hosp Course IMPRESSION: 1. Positive troponins/non-ST elevation myocardial infarction, likely secondary to the patient's cardiopulmonary arrest, as the patient has had recent left heart catheterization July 2016 revealing no significant obstructive disease.-now troponin trended negative 2. Congestive heart failure, diastolic, acute on chronic, as the patient has undergone a 2D echo during this admission, interpreted by another final assembler as having a preserved EF of 65% with mild aortic stenosis and mild prosthetic mitral valve and moderate tricuspid regurgitation. 3. Abnormal electrocardiogram with diffuse nonspecific ST and T-wave abnormalities, likely due to the patient's circulation arrest. 4. Respiratory failure, status post intubation. 5. Encephalopathy. 6. History of mitral valve replacement with bioprosthesis. 7. Atrial fibrillation on heparin-rate controlled 8. Hypotension, borderline. 9. Diabetes mellitus. 10. Anemia. 11. Renal failure-improved. 12.seizure episode-focal yesterday probable Recc: -Tele -Continue asa -Continue BB as tolerated only -Follow MS closely -Continue heparin -wean vent as possible Problems: Consultation Date/Type/Reason Admit Date/Time Oct 10, 2016 at 03:49 Initial Consult Date 10/10/16 Type of Consultation: Cardiology Reason for Consultation cardiac arrest Referring Provider: ROJAS VALIENTE DO Exam/Review of Systems Vital Signs Vitals Vital Signs Date Time Temp Pulse Resp B/P Pulse Ox O2 Delivery O2 Flow Rate FiO2 10/15/16 10:00 90 32 122/73 100 Mechanical Ventilator 10/15/16 09:00 100.8 10/15/16 08:00 30 Intake and Output 10/14/16 10/14/16 10/15/16 14:59 22:59 06:59 Intake Total 1131.2 ml 1698.6 ml 1562.4 ml Output Total 1795 ml 750 ml 850 ml Balance -663.8 ml 948.6 ml 712.4 ml Exam Review of Systems: CONSTITUTIONAL: No fevers, chills. PULMONARY: No sob CARDIOVASCULAR: No chest pain/palpitations GASTROINTESTINAL: No nausea/vomiting. GENITOURINARY: No hematuria/dysuria. MUSCULOSKELETAL: No myagias/arthalgias. PSYCHIATRIC: The patient denies depression. NEUROLOGIC: No weakness Constitutional: other (sleeping) Psych: no complaints Head: normocephalic ENMT: mucosa pink and moist Neck: jvd (9 cm water), supple Respiratory: diminished breath sounds (at bases/B) Cardiovascular: regular rate and rhythm Gastrointestinal: non-tender, soft Musculoskeletal: muscle tone (normal) Extremities: edema (none) 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: other (No focal deficits) Results Result Diagram: 10/15/16 0410 10/15/16 0410 Results 24 hrs Laboratory Tests Test 10/14/16 12:18 10/14/16 17:25 10/14/16 20:47 10/15/16 00:54 Bedside Glucose 195 223 H 158 186 Test 10/15/16 04:10 10/15/16 05:24 10/15/16 09:06 White Blood Count 9.4 # Red Blood Count 2.97 L Hemoglobin 9.1 L Hematocrit 29.0 L Mean Corpuscular Volume 97.6 Mean Corpuscular Hemoglobin 30.6 Mean Corpuscular Hemoglobin Concent 31.4 L Red Cell Distribution Width 17.6 H Platelet Count 106 L Mean Platelet Volume 11.2 H Neutrophils % 80.0 H Lymphocytes % 7.8 L Monocytes % 9.2 Eosinophils % 2.1 Basophils % 0.2 Nucleated Red Blood Cells % 0.0 Neutrophils # 7.5 Lymphocytes # 0.7 L Monocytes # 0.9 Eosinophils # 0.2 Basophils # 0.0 Nucleated Red Blood Cells # 0.0 Activated Partial Thromboplast Time 61.7 H Sodium Level 139 Potassium Level 3.9 Chloride Level 103 Carbon Dioxide Level 27 Anion Gap 13 Blood Urea Nitrogen 30 H Creatinine 1.16 Glucose Level 162 Calcium Level 8.7 Phosphorus Level 4.0 Magnesium Level 1.8 Bedside Glucose 159 186 Medications Medications Current Medications Eye Lubricant (Artificial Tears Oph) 1 drop TID BOTH EYES Last administered on 10/15/16 09:09; Admin Dose 1 DROP; Start 10/09/16 at 09:00 Famotidine (Pepcid Iv) 20 mg DAILY IV Last administered on 10/15/16 09:53; Admin Dose 20 MG; Start 10/09/16 at 09:00 Aspirin 81 mg 81 mg DAILY PO Last administered on 10/15/16 09:53; Admin Dose 81 MG; Start 10/10/16 at 09:00 Propofol (Diprivan) 100 ml @ 0 mls/hr TITRATE IV ; Start 10/10/16 at 01:00 Miscellaneous Information 1 ea NOTE XX ; Start 10/10/16 at 02:00 Glucose (Glutose) 15 gm Q15M PRN PO DECREASED GLUCOSE; Start 10/10/16 at 02:00 Glucose (Glutose) 22.5 gm Q15M PRN PO DECREASED GLUCOSE; Start 10/10/16 at 02: 00 Dextrose (D50w Syringe) 25 ml Q15M PRN IV DECREASED GLUCOSE; Start 10/10/16 at 02:00 Dextrose (D50w Syringe) 50 ml Q15M PRN IV DECREASED GLUCOSE; Start 10/10/16 at 02:00 Glucagon (Glucagen) 1 mg Q15M PRN IM DECREASED GLUCOSE; Start 10/10/16 at 02:00 Glucose (Glutose) 15 gm Q15M PRN BUCCAL DECREASED GLUCOSE; Start 10/10/16 at 02 :00 IV Flush (NS 10 ml) 10 ml PRN PRN IV IV PROTOCOL; Start 10/10/16 at 12:30 Albuterol 4 puff 4 puff Q4 PRN INH for wheezing Last administered on 10/14/16 13:32; Admin Dose 4 PUFF; Start 10/10/16 at 13:30 Potassium Chloride/Sodium Chloride (KCl/1/2 NS) 1,020 ml @ 75 mls/hr [id number] IV Last administered on 10/14/16 22:30; Admin Dose 75 MLS/HR; Start 10/11/16 at 12:00 Metoprolol Tartrate 25 mg 25 mg BID PO Last administered on 10/15/16 09:53; Admin Dose 25 MG; Start 10/12/16 at 21:00 Piperacillin Sod/ Tazobactam Sod (Zosyn 2.25gm/ 50ml (Pmx)) 50 ml @ 100 mls/hr Q6 IVPB Last administered on 10/15/16 05:25; Admin Dose 100 MLS/HR; Start at 18:00 Furosemide (Lasix) 40 mg DAILY IV Last administered on 10/15/16 09:53; Admin Dose 40 MG; Start 10/13/16 at 09:30 Acetaminophen (Tylenol Tab) 650 mg Q6H PRN PO PAIN AND OR ELEVATED TEMP Last administered on 10/15/16 09:53; Admin Dose 650 MG; Start 10/13/16 at 15:00 Insulin Glargine (Lantus) 10 unit DAILY@20 SC Last administered on 10/14/16 20 :55; Admin Dose 10 UNIT; Start 10/13/16 at 20:00 Insulin Aspart (Novolog Insulin Pen) NOVOLOG *MODERATE* ALGORI... Q4 SC Last administered on 10/15/16 09:08; Admin Dose 4 UNIT; Start 10/13/16 at 21:00 Lorazepam 1 mg 1 mg Q6H PRN IV SEIZURES; Start 10/13/16 at 23:30 Levetiracetam (Keppra 500 Mg/ 100ml (Pmx)) 100 ml @ 400 mls/hr Q12 IVPB Last administered on 10/15/16 09:54; Admin Dose 400 MLS/HR; Start 10/14/16 at 21:00 Miscellaneous Information (*Rx Drug Level Order Reminder*) VANCO TR LEVEL PRIOR... ONCE ONCE XX ; Start 10/15/16 at 15:00; Stop 10/15/16 at 15:01 Magnesium Citrate (Citroma) 300 ml ONCE ONCE NGT ; Start 10/15/16 at 12:00; Stop 10/15/16 at 12:01 ESTEFANI BORREGO Oct 15, 2016 11:02
--- NOTE | 2016-10-15 11:44 | PN ---
DATE: 10/15/2016 SUBJECTIVE: The patient remains sedated, intubated (not on any anxiolytics). PHYSICAL EXAMINATION: VITAL SIGNS: Spiked temperature to 100.8, blood pressure 114/66, O2 saturation 99%, respiratory rat e 22. HEENT: Head normocephalic. CHEST: Few wheezes heard anteriorly. HEART: S1, S2 heard with no definite gallops. ABDOMEN: Soft, nontender, no hepatosplenomegaly. EXTREMITIES: No edema. Homans sign is negative. NEUROLOGIC: No seizure activity evident. The patient has not had a BM for the last 3 days. LABORATORY DATA: WBC count 9.4, hematocrit 29, platelet count is 106,000. Sodium 139, potassium 3. 9, BUN 30, creatinine 1.16, glucose 159 and 186. I's and O's: 4392, output 3395. ID consultation by Dr. Randolph much appreciated. IMAGING: MRI was reviewed and showed no evidence of any hemorrhage, mass lesion, infarction or hydr ocephalus. Mild to moderate punctate periventricular and subcortical white matter lesions likely re lated to chronic microangiopathic changes. Subtle T1 hyperintensity involving caudate and globus ar eas. No infarct noted. IMPRESSION: 1. 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 2. Hypernatremia, resolved. 3. Severe chronic obstructive pulmonary disease with aspiration pneumonia. 4. History of atrial fibrillation. 5. Diabetes mellitus type 2, well controlled. 6. Status post mitral and aortic valve replacement. PLAN: We will continue present care. We will need to see how he responds from a neurological stand point. Recheck labs in a.m. Dictated By: ALEXANDR MOULTON MD, SR/NTS Conf#: [id number] DID#: [id number]
[2016-10-15] MEDS ORDERED: MAGNESIUM CITRATE 300 ML BTL NGT ONE (12:00)
[2016-10-15] MEDS: POTASSIUM CHLORIDE 40 MEQ in SOD CHLORIDE 0.45% 1,000 ML IV SCH (12:36)
[2016-10-15] MEDS: ALBUTEROL 18 GM INHALER INH PRN ×2 (14:12→20:12)
--- NOTE | 2016-10-15 15:06 | CONS ---
Date/Time of Note Date/Time of Note DATE: 10/15/16 TIME: 14:55 Assessment/Plan Assessment/Plan Chief Complaint/Hosp Course cardiorespiratory arrest Problems: Additional Assessment/Plan Patient is a 75 years old male admitted following found to have cardiorespiratory arrest requiring resuscitation. CT brain showed atrophy, nothing acute. He was intubated and ventilated and is currently in ICU. EEG showed generalized bihemispheric background slowing without seizure activity. Examination showed intubated and ventilated patient, unresponsive, non communicative, Corneals are absent, gag is present, intermittent seizure like activity. 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 MRI of brain showed mild peripheral and central cerebral volume loss, subtle areas of T1 hyperintensity involving the bilateral caudate and globus palatine, which may be sequelae of patient's hypoxia, no definite evidence of infarct or volume loss at this time, subcortical white matter lesions, likely related to chronic microangiopathic changes Plan: 1 Repeat EEG today 2 Contnue Keppra 500 mg IV q 12 hours 3 Discussed with patient's daughter who is present in the room 4 Will follow Consultation Date/Type/Reason Admit Date/Time Oct 10, 2016 at 03:49 Initial Consult Date 10/15/16 Type of Consultation: Neurologt Reason for Consultation Cardiorespiratory arrest Referring Provider: ROJAS VALIENTE DO 24 HR Interval Summary Free Text/Dictation Clinically unchanged, intubated and mechanically ventilated. MRI of brain showed mild peripheral and central cerebral volume loss, subtle areas of T1 hyperintensity involving the bilateral caudate and globus palatine, which may be sequelae of patient's hypoxia, no definite evidence of infarct or volume loss at this time, subcortical white matter lesions, likely related to chronic microangiopathic changes. EEG is pending. Exam/Review of Systems Vital Signs Vitals Vital Signs Date Time Temp Pulse Resp B/P Pulse Ox O2 Delivery O2 Flow Rate FiO2 10/15/16 14:06 99 19 130/65 100 Mechanical Ventilator 10/15/16 13:15 30 10/15/16 12:00 97.8 Intake and Output 10/14/16 10/14/16 10/15/16 15:00 23:00 07:00 Intake Total 1048.4 ml 1781.4 ml 1562.4 ml Output Total 1870 ml 800 ml 750 ml Balance -821.6 ml 981.4 ml 812.4 ml Exam Constitutional: non-verbal Head: atraumatic, normocephalic Eyes: EOMI, nl conjunctiva, nl lids ENMT: nl external ears & nose, nl lips & teeth, nl nasal mucosa & septum Neck: non-tender, supple Respiratory: other (intubated and ventilated) Gastrointestinal: soft Extremities: normal pulses 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: other (Limited exam, intubated and mechanically ventilated, no withdraw to noxious stimuli, Omnicef sluggishly reacting,) Results Result Diagram: 10/15/1640910/15/16409 Results 24 hrs Laboratory Tests Test 10/14/16 17:25 10/14/16 20:47 10/15/16 00:54 10/15/16 04:10 Bedside Glucose 223 H 158 186 White Blood Count 9.4 # Red Blood Count 2.97 L Hemoglobin 9.1 L Hematocrit 29.0 L Mean Corpuscular Volume 97.6 Mean Corpuscular Hemoglobin 30.6 Mean Corpuscular Hemoglobin Concent 31.4 L Red Cell Distribution Width 17.6 H Platelet Count 106 L Mean Platelet Volume 11.2 H Neutrophils % 80.0 H Lymphocytes % 7.8 L Monocytes % 9.2 Eosinophils % 2.1 Basophils % 0.2 Nucleated Red Blood Cells % 0.0 Neutrophils # 7.5 Lymphocytes # 0.7 L Monocytes # 0.9 Eosinophils # 0.2 Basophils # 0.0 Nucleated Red Blood Cells # 0.0 Activated Partial Thromboplast Time 61.7 H Sodium Level 139 Potassium Level 3.9 Chloride Level 103 Carbon Dioxide Level 27 Anion Gap 13 Blood Urea Nitrogen 30 H Creatinine 1.16 Glucose Level 162 Calcium Level 8.7 Phosphorus Level 4.0 Magnesium Level 1.8 Test 10/15/16 05:24 10/15/16 09:06 10/15/16 12:50 Bedside Glucose 159 186 217 Medications Medications Current Medications Eye Lubricant (Artificial Tears Oph) 1 drop TID BOTH EYES Last administered on 10/15/16 12:51; Admin Dose 1 DROP; Start 10/09/16 at 09:00 Famotidine (Pepcid Iv) 20 mg DAILY IV Last administered on 10/15/16 09:53; Admin Dose 20 MG; Start 10/09/16 at 09:00 Aspirin 81 mg 81 mg DAILY PO Last administered on 10/15/16 09:53; Admin Dose 81 MG; Start 10/10/16 at 09:00 Propofol (Diprivan) 100 ml @ 0 mls/hr TITRATE IV ; Start 10/10/16 at 01:00 Miscellaneous Information 1 ea NOTE XX ; Start 10/10/16 at 02:00 Glucose (Glutose) 15 gm Q15M PRN PO DECREASED GLUCOSE; Start 10/10/16 at 02:00 Glucose (Glutose) 22.5 gm Q15M PRN PO DECREASED GLUCOSE; Start 10/10/16 at 02: 00 Dextrose (D50w Syringe) 25 ml Q15M PRN IV DECREASED GLUCOSE; Start 10/10/16 at 02:00 Dextrose (D50w Syringe) 50 ml Q15M PRN IV DECREASED GLUCOSE; Start 10/10/16 at 02:00 Glucagon (Glucagen) 1 mg Q15M PRN IM DECREASED GLUCOSE; Start 10/10/16 at 02:00 Glucose (Glutose) 15 gm Q15M PRN BUCCAL DECREASED GLUCOSE; Start 10/10/16 at 02 :00 IV Flush (NS 10 ml) 10 ml PRN PRN IV IV PROTOCOL; Start 10/10/16 at 12:30 Albuterol 4 puff 4 puff Q4 PRN INH for wheezing Last administered on 10/15/16 14:12; Admin Dose 4 PUFF; Start 10/10/16 at 13:30 Potassium Chloride/Sodium Chloride (KCl/1/2 NS) 1,020 ml @ 75 mls/hr [id number] IV Last administered on 10/15/16 12:36; Admin Dose 75 MLS/HR; Start 10/11/16 at 12:00 Metoprolol Tartrate 25 mg 25 mg BID PO Last administered on 10/15/16 09:53; Admin Dose 25 MG; Start 10/12/16 at 21:00 Piperacillin Sod/ Tazobactam Sod (Zosyn 2.25gm/ 50ml (Pmx)) 50 ml @ 100 mls/hr Q6 IVPB Last administered on 10/15/16 12:36; Admin Dose 100 MLS/HR; Start at 18:00 Furosemide (Lasix) 40 mg DAILY IV Last administered on 10/15/16 09:53; Admin Dose 40 MG; Start 10/13/16 at 09:30 Acetaminophen (Tylenol Tab) 650 mg Q6H PRN PO PAIN AND OR ELEVATED TEMP Last administered on 10/15/16 09:53; Admin Dose 650 MG; Start 10/13/16 at 15:00 Insulin Glargine (Lantus) 10 unit DAILY@20 SC Last administered on 10/14/16 20 :55; Admin Dose 10 UNIT; Start 10/13/16 at 20:00 Insulin Aspart (Novolog Insulin Pen) NOVOLOG *MODERATE* ALGORI... Q4 SC Last administered on 10/15/16 12:53; Admin Dose 4 UNIT; Start 10/13/16 at 21:00 Lorazepam 1 mg 1 mg Q6H PRN IV SEIZURES; Start 10/13/16 at 23:30 Levetiracetam (Keppra 500 Mg/ 100ml (Pmx)) 100 ml @ 400 mls/hr Q12 IVPB Last administered on 10/15/16 09:54; Admin Dose 400 MLS/HR; Start 10/14/16 at 21:00 Procedures Procedures MRI of brain 10/14/16 IMPRESSION: 1. No acute intracranial abnormality. No intracranial hemorrhage, enhancing mass lesion, infarction or hydrocephalous. 2. Mild peripheral and central cerebral volume loss. 3. Subtle areas of T1 hyperintensity involving the bilateral caudate and globus palatine, which may be sequelae of patient's hypoxia. No definite evidence of infarct or volume loss at this time. Continued attention on follow- up is recommended. 4. Mild to moderate punctate and patchy periventricular and subcortical white matter lesions, likely related to chronic microangiopathic changes. RPTAT: HGAS .Mansoor Willett MD, MD Date Time Electronically viewed and signed by .Mansoor Willett MD, MD on 10/14/2016 21: 51 .Jayde/ KATRIN VILLEGAS MD Oct 15, 2016 15:05
--- NOTE | 2016-10-15 16:23 | RADRPT ---
PROCEDURE: Ultrasound chest CLINICAL INDICATION: Pleural effusion. Shortness of breath. TECHNIQUE: Mondragon scale ultrasound images of the chest were obtained. COMPARISON: Chest radiograph 10/15/2016 FINDINGS: Right pleural space: No effusion. Left pleural space: No effusion. IMPRESSION: No evidence of pleural effusion bilaterally. RPTAT: AADD .Osorio Johnson MD, MD Date Time Electronically viewed and signed by .Osorio Johnson MD, MD on 10/15/2016 16:23 .B/
--- NOTE | 2016-10-15 18:56 | RADRPT ---
PROCEDURE: XR Chest. CLINICAL INDICATION: Shortness of breath. TECHNIQUE: Single frontal view. COMPARISON: 10/14/2016. FINDINGS: The endotracheal tube tip is at the level of the iván and should be retracted approximately 2 cm. The nasogastric tube tip is in the stomach. Left basilar atelectasis is slightly worse than seen pr eviously. The lungs are otherwise clear. The heart is enlarged. There are sternal wires and there is a mitral valve and aortic valve replace ment. Calcification is present in the aorta consistent with atherosclerosis. There is no right pleural effusion. There is a possible left pleural effusion. There is no pneumothorax. IMPRESSION: 1. The endotracheal tube should be retracted approximately 2 cm. 2. Slightly worse appearance of the left lung base. 3. Possible left pleural effusion. 4. Otherwise unremarkable study. RPTAT: QQ .Isaias Cabrera MD, Date Time Electronically viewed and signed by .Isaias Cabrera MD, on 10/15/2016 18:56 .R/
[2016-10-15] MEDS: HEPARIN 25000 UNITS/250 ML 250 ML IV SCH (19:31)
[2016-10-15] MEDS: INSULIN GLARGINE [LANtus] 3 ML PEN SC SCH (21:04)
[2016-10-16] VITALS (39 sets, daily range): BP systolic 78–113; BP diastolic 52–74; PULSE 72–95; RESP 14–32; Ht 165.1 cm; Wt 65.0 kg
[2016-10-16] MEDS: PIPER-TAZO 2.25 GM (PMX) 50 ML IVPB SCH ×2 (00:34→05:06)
[2016-10-16] MEDS: POTASSIUM CHLORIDE 40 MEQ in SOD CHLORIDE 0.45% 1,000 ML IV SCH ×3 (00:34→19:47)
[2016-10-16] MEDS: INSULIN ASPART [NOVOLOG] 3 ML PEN SC SCH ×6 (00:45→22:06)
--- NOTE | 2016-10-16 02:39 | RADRPT ---
PROCEDURE: XR Chest. CLINICAL INDICATION: Endotracheal tube repositioning TECHNIQUE: Portable single view of the chest COMPARISON: 10/15/2016 FINDINGS: On the initial view of the chest, the endotracheal tube is 1.5 cm from the iván. On the subsequen t view, the tip of the tube is 1.9 cm from the iván. It may be helpful to pull this back and genet tional 6 mm. Right-sided PICC line remains in place. Nasogastric tube is again seen in place. Med fuad sternotomy wires and prosthetic valve. Bilateral pleural effusions and bibasilar atelectasis or infiltrates again seen. IMPRESSION: Tip of the endotracheal tube 1.9 cm from the iván. If desired, this could be pulled back and genet tional 6 mm. RPTAT: HLBE Physician Iqra Date Time Electronically viewed and signed by Inna Flowers Physician on 10/16/2016 02:39 TALAT/
[2016-10-16 04:50] LABS: ADD SCAN DIFF NO
[2016-10-16 05:01] LABS: BASOPHILS % 0.2 % (0.0-2.0); EOSINOPHILS # 0.2 10^3/ul (0.0-0.5); LYMPHOCYTES # 0.6 10^3/ul (0.8-2.9); LYMPHOCYTES % 5.7 % (15.0-51.0); MEAN CORPUSCULAR HGB CONC 32.1 g/dl (32.0-37.0); MEAN CORPUSCULAR VOLUME 96.6 fl (82.0-101.0); MEAN PLATELET VOLUME 11.9 fl (7.4-10.4); MONOCYTES % 8.9 % (0.0-11.0); NEUTROPHIL # 8.8 10^3/ul (1.6-7.5); NEUTROPHILS % 82.2 % (39.0-77.0); PLATELET COUNT 120 10^3/UL (140-415); RED CELL DISTRIBUTION WIDTH 17.2 % (11.5-14.5); WHITE BLOOD COUNT 10.7 10^3/ul (4.8-10.8)
[2016-10-16 05:22] LABS: ALBUMIN 2.7 g/dl (3.3-4.9)
[2016-10-16 05:23] LABS: POTASSIUM 4.2 mmol/L (3.5-5.1)
[2016-10-16 05:25] LABS: ALBUMIN/GLOBULIN RATIO 0.84; BILIRUBIN,INDIRECT 0.4 mg/dl (0-1.1); BILIRUBIN,TOTAL 0.4 mg/dl (0.2-1.3); CREATININE 1.13 mg/dl (0.61-1.24); TOTAL PROTEIN 5.9 g/dl (6.1-8.1)
[2016-10-16 05:26] LABS: CALCIUM 8.6 mg/dl (8.4-10.2)
[2016-10-16] MEDS: HEPARIN 25000 UNITS/250 ML 250 ML IV SCH (05:28)
--- NOTE | 2016-10-16 06:55 | CONS ---
Date/Time of Note Date/Time of Note DATE: 10/16/16 TIME: 06:51 Assessment/Plan Assessment/Plan Chief Complaint/Hosp Course 1) Acute NE with likely anoxic brain injury MRI done and no acute bleeds but likely signs of anoxic injury prognosis is poor 10/16 - no response to stimuli, remains intubated 2) development of L side infiltrate/effusion procalcitonin is pending Klebsiella is growing in sputum cx is very sensitive no MRSA continue with zosyn and d/c vanco get chest u/s to see if there is much fluid on L side or if mostly infiltrate 10/16 - chest u/s does not show any fluid, so this is all atelectasis/infiltrate continue with zosyn 3) CoNS in blood cx only one set and this likely represents contamination d/c vanco and repeat blood cx tomorrow 10/16 - repeat blood cx were done yesterday, will not repeat today continue off vanco 4) ARF improving with hydration 5) DM 6) seizures none overnight or today so far Problems: Consultation Date/Type/Reason Admit Date/Time Oct 10, 2016 at 03:49 Initial Consult Date 10/15/16 Type of Consultation: ID 24 HR Interval Summary Free Text/Dictation spoke to nurse no acute changes 2 BM's since yesterday tolerating TF no response to stimuli, occasionally opens eyes Exam/Review of Systems Vital Signs Vitals Vital Signs Date Time Temp Pulse Resp B/P Pulse Ox O2 Delivery O2 Flow Rate FiO2 10/16/16 06:00 95 17 110/67 100 Mechanical Ventilator 10/16/16 05:30 30 10/16/16 04:00 98.2 Intake and Output 10/15/16 10/15/16 10/16/16 15:00 23:00 07:00 Intake Total 600 ml 400 ml 350 ml Output Total 1000 ml 900 ml 625 ml Balance -400 ml -500 ml -275 ml Exam Constitutional: non-verbal, other (no response to stimuli) Head: normocephalic Eyes: nl sclera ENMT: other (tongue tip has no thrush) Respiratory: other (phong coarse rhonchi but less so) Cardiovascular: regular rate and rhythm Gastrointestinal: non-tender, soft Extremities: other (no edema) Results Result Diagram: 10/16/16 0350 10/16/16 0350 Results 24 hrs Laboratory Tests Test 10/15/16 09:06 10/15/16 12:50 10/15/16 17:38 10/15/16 20:54 Bedside Glucose 186 217 214 228 H Test 10/16/16 00:27 10/16/16 03:50 10/16/16 04:59 Bedside Glucose 182 209 White Blood Count 10.7 Red Blood Count 2.90 L Hemoglobin 9.0 L Hematocrit 28.0 L Mean Corpuscular Volume 96.6 Mean Corpuscular Hemoglobin 31.0 Mean Corpuscular Hemoglobin Concent 32.1 Red Cell Distribution Width 17.2 H Platelet Count 120 L Mean Platelet Volume 11.9 H Neutrophils % 82.2 H Lymphocytes % 5.7 L Monocytes % 8.9 Eosinophils % 2.0 Basophils % 0.2 Nucleated Red Blood Cells % 0.0 Neutrophils # 8.8 H Lymphocytes # 0.6 L Monocytes # 1.0 H Eosinophils # 0.2 Basophils # 0.0 Nucleated Red Blood Cells # 0.0 Activated Partial Thromboplast Time 55.8 H Sodium Level 136 Potassium Level 4.2 Chloride Level 100 Carbon Dioxide Level 28 Anion Gap 12 Blood Urea Nitrogen 30 H Creatinine 1.13 Glucose Level 205 Calcium Level 8.6 Total Bilirubin 0.4 Direct Bilirubin 0.00 Indirect Bilirubin 0.4 Aspartate Amino Transf (AST/SGOT) 55 H Alanine Aminotransferase (ALT/SGPT) 40 Alkaline Phosphatase 61 Total Protein 5.9 L Albumin 2.7 L Globulin 3.20 Albumin/Globulin Ratio 0.84 Medications Medications Current Medications Eye Lubricant (Artificial Tears Oph) 1 drop TID BOTH EYES Last administered on 10/15/16 20:56; Admin Dose 1 DROP; Start 10/09/16 at 09:00 Famotidine (Pepcid Iv) 20 mg DAILY IV Last administered on 10/15/16 09:53; Admin Dose 20 MG; Start 10/09/16 at 09:00 Aspirin 81 mg 81 mg DAILY PO Last administered on 10/15/16 09:53; Admin Dose 81 MG; Start 10/10/16 at 09:00 Propofol (Diprivan) 100 ml @ 0 mls/hr TITRATE IV ; Start 10/10/16 at 01:00 Miscellaneous Information 1 ea NOTE XX ; Start 10/10/16 at 02:00 Glucose (Glutose) 15 gm Q15M PRN PO DECREASED GLUCOSE; Start 10/10/16 at 02:00 Glucose (Glutose) 22.5 gm Q15M PRN PO DECREASED GLUCOSE; Start 10/10/16 at 02: 00 Dextrose (D50w Syringe) 25 ml Q15M PRN IV DECREASED GLUCOSE; Start 10/10/16 at 02:00 Dextrose (D50w Syringe) 50 ml Q15M PRN IV DECREASED GLUCOSE; Start 10/10/16 at 02:00 Glucagon (Glucagen) 1 mg Q15M PRN IM DECREASED GLUCOSE; Start 10/10/16 at 02:00 Glucose (Glutose) 15 gm Q15M PRN BUCCAL DECREASED GLUCOSE; Start 10/10/16 at 02 :00 IV Flush (NS 10 ml) 10 ml PRN PRN IV IV PROTOCOL; Start 10/10/16 at 12:30 Albuterol 4 puff 4 puff Q4 PRN INH for wheezing Last administered on 10/15/16 20:12; Admin Dose 4 PUFF; Start 10/10/16 at 13:30 Potassium Chloride/Sodium Chloride (KCl/1/2 NS) 1,020 ml @ 75 mls/hr [id number] IV Last administered on 10/16/16 00:34; Admin Dose 75 MLS/HR; Start 10/11/16 at 12:00 Metoprolol Tartrate 25 mg 25 mg BID PO Last administered on 10/15/16 20:56; Admin Dose 25 MG; Start 10/12/16 at 21:00 Piperacillin Sod/ Tazobactam Sod (Zosyn 2.25gm/ 50ml (Pmx)) 50 ml @ 100 mls/hr Q6 IVPB Last administered on 10/16/16 05:06; Admin Dose 100 MLS/HR; Start at 18:00 Furosemide (Lasix) 40 mg DAILY IV Last administered on 10/15/16 09:53; Admin Dose 40 MG; Start 10/13/16 at 09:30 Acetaminophen (Tylenol Tab) 650 mg Q6H PRN PO PAIN AND OR ELEVATED TEMP Last administered on 10/15/16 22:04; Admin Dose 650 MG; Start 10/13/16 at 15:00 Insulin Glargine (Lantus) 10 unit DAILY@20 SC Last administered on 10/15/16 21 :04; Admin Dose 10 UNIT; Start 10/13/16 at 20:00 Insulin Aspart (Novolog Insulin Pen) NOVOLOG *MODERATE* ALGORI... Q4 SC Last administered on 10/16/16 05:02; Admin Dose 4 UNIT; Start 10/13/16 at 21:00 Lorazepam 1 mg 1 mg Q6H PRN IV SEIZURES Last administered on 10/15/16 20:34; Admin Dose 1 MG; Start 10/13/16 at 23:30 Levetiracetam (Keppra 500 Mg/ 100ml (Pmx)) 100 ml @ 400 mls/hr Q12 IVPB Last administered on 10/15/16 20:56; Admin Dose 400 MLS/HR; Start 10/14/16 at 21:00 MANISH MULLINS MD Oct 16, 2016 06:55
[2016-10-16] MEDS: METOPROLOL 25 MG TAB PO SCH ×2 (09:00→21:00)
[2016-10-16] MEDS: FUROSEMIDE 40 MG INJ IV SCH (09:00)
[2016-10-16] MEDS: ASPIRIN 81 MG TAB PO SCH (09:22)
[2016-10-16] MEDS: FAMOTIDINE 20 MG INJ IV SCH (09:22)
[2016-10-16] MEDS: LEVETIRACETAM 500 MG (PMX) 100 ML IVPB SCH ×2 (09:22→21:52)
[2016-10-16] MEDS: ARTIFICIAL TEARS 15 ML OPH BOTH EYES SCH ×3 (09:24→21:45)
--- NOTE | 2016-10-16 10:36 | CONS ---
Date/Time of Note Date/Time of Note DATE: 10/16/16 TIME: 10:33 Assessment/Plan Assessment/Plan Chief Complaint/Hosp Course IMPRESSION: 1. Positive troponins/non-ST elevation myocardial infarction, likely secondary to the patient's cardiopulmonary arrest, as the patient has had recent left heart catheterization July 2016 revealing no significant obstructive disease.-now troponin trended negative 2. Congestive heart failure, diastolic, acute on chronic, as the patient has undergone a 2D echo during this admission, interpreted by another design project manager as having a preserved EF of 65% with mild aortic stenosis and mild prosthetic mitral valve and moderate tricuspid regurgitation. 3. Abnormal electrocardiogram with diffuse nonspecific ST and T-wave abnormalities, likely due to the patient's circulation arrest. 4. Respiratory failure, status post intubation. 5. Encephalopathy. 6. History of mitral valve replacement with bioprosthesis. 7. Atrial fibrillation on heparin-rate controlled 8. Hypotension, borderline. 9. Diabetes mellitus. 10. Anemia. 11. Renal failure-improved. 12.seizure episode-focal yesterday probable Recc: -Tele -Continue asa -Continue BB as tolerated only -Continue daily alsix diuresis as tolerated -Follow MS closely -Continue heparin -wean vent as possible Problems: Consultation Date/Type/Reason Admit Date/Time Oct 10, 2016 at 03:49 Initial Consult Date 10/10/16 Type of Consultation: Cardiology Reason for Consultation cardiac arrest Referring Provider: ALEXANDR MOULTON MD Exam/Review of Systems Vital Signs Vitals Vital Signs Date Time Temp Pulse Resp B/P Pulse Ox O2 Delivery O2 Flow Rate FiO2 10/16/16 10:00 87 24 90/58 100 Mechanical Ventilator 10/16/16 08:00 99.8 10/16/16 05:30 30 Intake and Output 10/15/16 10/15/16 10/16/16 15:00 23:00 07:00 Intake Total 600 ml 400 ml 434 ml Output Total 1000 ml 900 ml 625 ml Balance -400 ml -500 ml -191 ml Exam Review of Systems: CONSTITUTIONAL: No fevers, chills. PULMONARY: No sob CARDIOVASCULAR: No chest pain/palpitations GASTROINTESTINAL: No nausea/vomiting. GENITOURINARY: No hematuria/dysuria. MUSCULOSKELETAL: No myagias/arthalgias. PSYCHIATRIC: The patient denies depression. NEUROLOGIC: No weakness Constitutional: other (encephalopathic) Head: normocephalic ENMT: mucosa pink and moist Neck: jvd (9 cm water), supple Respiratory: diminished breath sounds (at bases/B) Cardiovascular: regular rate and rhythm Gastrointestinal: non-tender, soft Musculoskeletal: muscle tone (normal) Extremities: edema (none) 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: other (No focal defciitrs) Results Result Diagram: 10/16/16 0350 10/16/16 0350 Results 24 hrs Laboratory Tests Test 10/15/16 12:50 10/15/16 17:38 10/15/16 20:54 10/16/16 00:27 Bedside Glucose 217 214 228 H 182 Test 10/16/16 03:50 10/16/16 04:59 10/16/16 09:18 White Blood Count 10.7 Red Blood Count 2.90 L Hemoglobin 9.0 L Hematocrit 28.0 L Mean Corpuscular Volume 96.6 Mean Corpuscular Hemoglobin 31.0 Mean Corpuscular Hemoglobin Concent 32.1 Red Cell Distribution Width 17.2 H Platelet Count 120 L Mean Platelet Volume 11.9 H Neutrophils % 82.2 H Lymphocytes % 5.7 L Monocytes % 8.9 Eosinophils % 2.0 Basophils % 0.2 Nucleated Red Blood Cells % 0.0 Neutrophils # 8.8 H Lymphocytes # 0.6 L Monocytes # 1.0 H Eosinophils # 0.2 Basophils # 0.0 Nucleated Red Blood Cells # 0.0 Activated Partial Thromboplast Time 55.8 H Sodium Level 136 Potassium Level 4.2 Chloride Level 100 Carbon Dioxide Level 28 Anion Gap 12 Blood Urea Nitrogen 30 H Creatinine 1.13 Glucose Level 205 Calcium Level 8.6 Total Bilirubin 0.4 Direct Bilirubin 0.00 Indirect Bilirubin 0.4 Aspartate Amino Transf (AST/SGOT) 55 H Alanine Aminotransferase (ALT/SGPT) 40 Alkaline Phosphatase 61 Total Protein 5.9 L Albumin 2.7 L Globulin 3.20 Albumin/Globulin Ratio 0.84 Bedside Glucose 209 182 Medications Medications Current Medications Eye Lubricant (Artificial Tears Oph) 1 drop TID BOTH EYES Last administered on 10/16/16 09:24; Admin Dose 1 DROP; Start 10/09/16 at 09:00 Famotidine (Pepcid Iv) 20 mg DAILY IV Last administered on 10/16/16 09:22; Admin Dose 20 MG; Start 10/09/16 at 09:00 Aspirin 81 mg 81 mg DAILY PO Last administered on 10/16/16 09:22; Admin Dose 81 MG; Start 10/10/16 at 09:00 Propofol (Diprivan) 100 ml @ 0 mls/hr TITRATE IV ; Start 10/10/16 at 01:00 Miscellaneous Information 1 ea NOTE XX ; Start 10/10/16 at 02:00 Glucose (Glutose) 15 gm Q15M PRN PO DECREASED GLUCOSE; Start 10/10/16 at 02:00 Glucose (Glutose) 22.5 gm Q15M PRN PO DECREASED GLUCOSE; Start 10/10/16 at 02: 00 Dextrose (D50w Syringe) 25 ml Q15M PRN IV DECREASED GLUCOSE; Start 10/10/16 at 02:00 Dextrose (D50w Syringe) 50 ml Q15M PRN IV DECREASED GLUCOSE; Start 10/10/16 at 02:00 Glucagon (Glucagen) 1 mg Q15M PRN IM DECREASED GLUCOSE; Start 10/10/16 at 02:00 Glucose (Glutose) 15 gm Q15M PRN BUCCAL DECREASED GLUCOSE; Start 10/10/16 at 02 :00 IV Flush (NS 10 ml) 10 ml PRN PRN IV IV PROTOCOL; Start 10/10/16 at 12:30 Albuterol 4 puff 4 puff Q4 PRN INH for wheezing Last administered on 10/15/16 20:12; Admin Dose 4 PUFF; Start 10/10/16 at 13:30 Potassium Chloride/Sodium Chloride (KCl/1/2 NS) 1,020 ml @ 75 mls/hr [id number] IV Last administered on 10/16/16 00:34; Admin Dose 75 MLS/HR; Start 10/11/16 at 12:00 Metoprolol Tartrate (Lopressor) 25 mg BID PO Last administered on 10/15/16 20: 56; Admin Dose 25 MG; Start 10/12/16 at 21:00 Furosemide (Lasix) 40 mg DAILY IV Last administered on 10/15/16 09:53; Admin Dose 40 MG; Start 10/13/16 at 09:30 Acetaminophen (Tylenol Tab) 650 mg Q6H PRN PO PAIN AND OR ELEVATED TEMP Last administered on 10/15/16 22:04; Admin Dose 650 MG; Start 10/13/16 at 15:00 Insulin Glargine (Lantus) 10 unit DAILY@20 SC Last administered on 10/15/16 21 :04; Admin Dose 10 UNIT; Start 10/13/16 at 20:00 Insulin Aspart (Novolog Insulin Pen) NOVOLOG *MODERATE* ALGORI... Q4 SC Last administered on 10/16/16 09:35; Admin Dose 4 UNIT; Start 10/13/16 at 21:00 Lorazepam 1 mg 1 mg Q6H PRN IV SEIZURES Last administered on 10/15/16 20:34; Admin Dose 1 MG; Start 10/13/16 at 23:30 Levetiracetam 100 ml @ 400 mls/hr Q12 IVPB Last administered on 10/16/16 09: 22; Admin Dose 400 MLS/HR; Start 10/14/16 at 21:00 Piperacillin Sod/ Tazobactam Sod (Zosyn 3.375gm/ 100 ml (Pmx)) 100 ml @ 100 mls /hr Q6 IVPB ; Start 10/16/16 at 12:00 ESTEFANI BORREGO Oct 16, 2016 10:36
--- NOTE | 2016-10-16 11:01 | CONS ---
Date/Time of Note Date/Time of Note DATE: 10/16/16 TIME: 10:57 Assessment/Plan Assessment/Plan Additional Assessment/Plan X-ray was reviewed from earlier this morning which is showing bilateral pleural effusions. Cardio megaly is present. Sternal wires are again identified. Endotracheal tube is at an adequate level. Ventilator settings; AC of 14, tidal volume 500, PEEP of 5, 30% FiO2. Assessment recommendations; 1. 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 2. Prior history of coronary artery disease and CABG surgery. 3. History of diabetes, hypertension. 4. Hypernatremia with interval correction. Continue current treatment. Prognosis is very poor. Consultation Date/Type/Reason Admit Date/Time Oct 10, 2016 at 03:49 Initial Consult Date 10/15/16 Type of Consultation: Pulmonary/critical care Referring Provider: ALEXANDR MOULTON MD 24 HR Interval Summary Free Text/Dictation Patient condition remains critical. Remains unresponsive. Has remained hemodynamically stable. General exam; elderly male, orally intubated, unresponsive. Currently in no distress. Exam/Review of Systems Vital Signs Vitals Vital Signs Date Time Temp Pulse Resp B/P Pulse Ox O2 Delivery O2 Flow Rate FiO2 10/16/16 10:00 87 24 90/58 100 Mechanical Ventilator 10/16/16 08:00 99.8 10/16/16 05:30 30 Intake and Output 10/15/16 10/15/16 10/16/16 15:00 23:00 07:00 Intake Total 600 ml 400 ml 434 ml Output Total 1000 ml 900 ml 625 ml Balance -400 ml -500 ml -191 ml Exam HEENT exam; supple neck, positive JVD. No lymphadenopathy. Midline trachea. Orally intubated. Patient does have a disconjugate gaze towards the right. Pupils are small bilaterally. Patient is edentulous. Chest examination; diminished breath on lung bases bilaterally. Upper lobes are clear. S1-S2 audible, no murmurs. Regular rhythm. Abdomen examination; soft, non-distended. No organomegaly. Bowel sounds audible. Extremity exam is; no peripheral edema. BUSINESS ADMINISTRATOR examination; patient remains unresponsive. Results Result Diagram: 10/16/16 0350 10/16/16 0350 Results 24 hrs Laboratory Tests Test 10/15/16 12:50 10/15/16 17:38 10/15/16 20:54 10/16/16 00:27 Bedside Glucose 217 214 228 H 182 Test 10/16/16 03:50 10/16/16 04:59 10/16/16 09:18 White Blood Count 10.7 Red Blood Count 2.90 L Hemoglobin 9.0 L Hematocrit 28.0 L Mean Corpuscular Volume 96.6 Mean Corpuscular Hemoglobin 31.0 Mean Corpuscular Hemoglobin Concent 32.1 Red Cell Distribution Width 17.2 H Platelet Count 120 L Mean Platelet Volume 11.9 H Neutrophils % 82.2 H Lymphocytes % 5.7 L Monocytes % 8.9 Eosinophils % 2.0 Basophils % 0.2 Nucleated Red Blood Cells % 0.0 Neutrophils # 8.8 H Lymphocytes # 0.6 L Monocytes # 1.0 H Eosinophils # 0.2 Basophils # 0.0 Nucleated Red Blood Cells # 0.0 Activated Partial Thromboplast Time 55.8 H Sodium Level 136 Potassium Level 4.2 Chloride Level 100 Carbon Dioxide Level 28 Anion Gap 12 Blood Urea Nitrogen 30 H Creatinine 1.13 Glucose Level 205 Calcium Level 8.6 Total Bilirubin 0.4 Direct Bilirubin 0.00 Indirect Bilirubin 0.4 Aspartate Amino Transf (AST/SGOT) 55 H Alanine Aminotransferase (ALT/SGPT) 40 Alkaline Phosphatase 61 Total Protein 5.9 L Albumin 2.7 L Globulin 3.20 Albumin/Globulin Ratio 0.84 Bedside Glucose 209 182 Medications Medications Current Medications Eye Lubricant (Artificial Tears Oph) 1 drop TID BOTH EYES Last administered on 10/16/16 09:24; Admin Dose 1 DROP; Start 10/09/16 at 09:00 Famotidine (Pepcid Iv) 20 mg DAILY IV Last administered on 10/16/16 09:22; Admin Dose 20 MG; Start 10/09/16 at 09:00 Aspirin 81 mg 81 mg DAILY PO Last administered on 10/16/16 09:22; Admin Dose 81 MG; Start 10/10/16 at 09:00 Propofol (Diprivan) 100 ml @ 0 mls/hr TITRATE IV ; Start 10/10/16 at 01:00 Miscellaneous Information 1 ea NOTE XX ; Start 10/10/16 at 02:00 Glucose (Glutose) 15 gm Q15M PRN PO DECREASED GLUCOSE; Start 10/10/16 at 02:00 Glucose (Glutose) 22.5 gm Q15M PRN PO DECREASED GLUCOSE; Start 10/10/16 at 02: 00 Dextrose (D50w Syringe) 25 ml Q15M PRN IV DECREASED GLUCOSE; Start 10/10/16 at 02:00 Dextrose (D50w Syringe) 50 ml Q15M PRN IV DECREASED GLUCOSE; Start 10/10/16 at 02:00 Glucagon (Glucagen) 1 mg Q15M PRN IM DECREASED GLUCOSE; Start 10/10/16 at 02:00 Glucose (Glutose) 15 gm Q15M PRN BUCCAL DECREASED GLUCOSE; Start 10/10/16 at 02 :00 IV Flush (NS 10 ml) 10 ml PRN PRN IV IV PROTOCOL; Start 10/10/16 at 12:30 Albuterol 4 puff 4 puff Q4 PRN INH for wheezing Last administered on 10/15/16 20:12; Admin Dose 4 PUFF; Start 10/10/16 at 13:30 Potassium Chloride/Sodium Chloride (KCl/1/2 NS) 1,020 ml @ 75 mls/hr [id number] IV Last administered on 10/16/16 00:34; Admin Dose 75 MLS/HR; Start 10/11/16 at 12:00 Metoprolol Tartrate (Lopressor) 25 mg BID PO Last administered on 10/15/16 20: 56; Admin Dose 25 MG; Start 10/12/16 at 21:00 Furosemide (Lasix) 40 mg DAILY IV Last administered on 10/15/16 09:53; Admin Dose 40 MG; Start 10/13/16 at 09:30 Acetaminophen (Tylenol Tab) 650 mg Q6H PRN PO PAIN AND OR ELEVATED TEMP Last administered on 10/15/16 22:04; Admin Dose 650 MG; Start 10/13/16 at 15:00 Insulin Glargine (Lantus) 10 unit DAILY@20 SC Last administered on 10/15/16 21 :04; Admin Dose 10 UNIT; Start 10/13/16 at 20:00 Insulin Aspart (Novolog Insulin Pen) NOVOLOG *MODERATE* ALGORI... Q4 SC Last administered on 10/16/16 09:35; Admin Dose 4 UNIT; Start 10/13/16 at 21:00 Lorazepam 1 mg 1 mg Q6H PRN IV SEIZURES Last administered on 10/15/16 20:34; Admin Dose 1 MG; Start 10/13/16 at 23:30 Levetiracetam 100 ml @ 400 mls/hr Q12 IVPB Last administered on 10/16/16 09: 22; Admin Dose 400 MLS/HR; Start 10/14/16 at 21:00 Piperacillin Sod/ Tazobactam Sod (Zosyn 3.375gm/ 100 ml (Pmx)) 100 ml @ 100 mls /hr Q6 IVPB ; Start 10/16/16 at 12:00 MARIE LYNCH Oct 16, 2016 11:00
[2016-10-16] MEDS: PIPER-TAZO 3.375 GM IV (PMX) 100 ML IVPB SCH ×2 (12:58→18:18)
--- NOTE | 2016-10-16 15:11 | SP ---
DATE OF PROCEDURE: 10/15/2016 HISTORY OF PRESENT ILLNESS: This is a 75-year-old male with anoxic event due to cardiorespiratory a rrest and has been unresponsive. This EEG is done to rule out electrocerebral silence protocol. CURRENT MEDICATIONS 1. Keppra. 2. Ativan. PROCEDURE: Utilizing a 16-channel EEG machine, cap scalp electrodes were applied in accordance with the International 10/20 system. [id number] and [id number] montages were displayed. Electric al impedances were measured and reported. Full ECS protocol was followed. DESCRIPTION: During the resting state a clear posterior dominant rhythm was not seen. Intermittent epileptiform activity was noted in bilateral frontotemporal region. Photic stimulation had no resp onse. Hyperventilation was not performed. INTERPRETATION: This is an abnormal EEG because of presence of bihemispheric background slowing wit h intermittent epileptiform activity in bitemporal distribution. Please correlate these findings wi th the patient's clinical picture. Dictated By: KATRIN LOUIS/SUDHAKAR Conf#: [id number] DID#: [id number]
--- NOTE | 2016-10-16 15:26 | CONS ---
Date/Time of Note Date/Time of Note DATE: 10/16/16 TIME: 15:20 Assessment/Plan Assessment/Plan Chief Complaint/Hosp Course cardiorespiratory arrest Problems: Additional Assessment/Plan Patient is a 75 years old male admitted following found to have cardiorespiratory arrest requiring resuscitation. CT brain showed atrophy, nothing acute. He was intubated and ventilated and is currently in ICU. EEG showed generalized bihemispheric background slowing without seizure activity. Examination showed intubated and ventilated patient, unresponsive, non communicative, Corneals are absent, gag is present, intermittent seizure like activity. 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 MRI of brain showed mild peripheral and central cerebral volume loss, subtle areas of T1 hyperintensity involving the bilateral caudate and globus palatine, which may be sequelae of patient's hypoxia, no definite evidence of infarct or volume loss at this time, subcortical white matter lesions, likely related to chronic microangiopathic changes. Repeat EEG showed intermittent epileptiform activity, poor background rhythm. Plan: 1 Increase Keppra 1000 mg IV q 12 hours 2 Discussed with patient's daughter who is present in the room 3 prognosis is poor 3 Dr. Yoo will follow in AM Consultation Date/Type/Reason Admit Date/Time Oct 10, 2016 at 03:49 Initial Consult Date 10/15/16 Type of Consultation: Pulmonary/critical care Referring Provider: ALEXANDR MOULTON MD 24 HR Interval Summary Free Text/Dictation Unchanged clinically. Repeat EEG showed very poor background activity with intermitted seizures. Exam/Review of Systems Vital Signs Vitals Vital Signs Date Time Temp Pulse Resp B/P Pulse Ox O2 Delivery O2 Flow Rate FiO2 10/16/16 12:00 94 10/16/16 10:00 24 90/58 100 Mechanical Ventilator 10/16/16 08:00 99.8 10/16/16 05:30 30 Intake and Output 10/15/16 10/15/16 10/16/16 15:00 23:00 07:00 Intake Total 600 ml 400 ml 434 ml Output Total 1000 ml 900 ml 625 ml Balance -400 ml -500 ml -191 ml Exam Constitutional: non-verbal Head: atraumatic, normocephalic Eyes: EOMI, nl conjunctiva, nl lids ENMT: nl external ears & nose Neck: supple Cardiovascular: regular rate and rhythm Gastrointestinal: soft Extremities: normal pulses 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: other (Limited exam, intubated and mechanically ventilated, no withdraw to noxious stimuli, pupil sluggishly reacting,) Results Result Diagram: 10/16/16 0350 10/16/16 0350 Results 24 hrs Laboratory Tests Test 10/15/16 17:38 10/15/16 20:54 10/16/16 00:27 10/16/16 03:50 Bedside Glucose 214 228 H 182 White Blood Count 10.7 Red Blood Count 2.90 L Hemoglobin 9.0 L Hematocrit 28.0 L Mean Corpuscular Volume 96.6 Mean Corpuscular Hemoglobin 31.0 Mean Corpuscular Hemoglobin Concent 32.1 Red Cell Distribution Width 17.2 H Platelet Count 120 L Mean Platelet Volume 11.9 H Neutrophils % 82.2 H Lymphocytes % 5.7 L Monocytes % 8.9 Eosinophils % 2.0 Basophils % 0.2 Nucleated Red Blood Cells % 0.0 Neutrophils # 8.8 H Lymphocytes # 0.6 L Monocytes # 1.0 H Eosinophils # 0.2 Basophils # 0.0 Nucleated Red Blood Cells # 0.0 Activated Partial Thromboplast Time 55.8 H Sodium Level 136 Potassium Level 4.2 Chloride Level 100 Carbon Dioxide Level 28 Anion Gap 12 Blood Urea Nitrogen 30 H Creatinine 1.13 Glucose Level 205 Calcium Level 8.6 Total Bilirubin 0.4 Direct Bilirubin 0.00 Indirect Bilirubin 0.4 Aspartate Amino Transf (AST/SGOT) 55 H Alanine Aminotransferase (ALT/SGPT) 40 Alkaline Phosphatase 61 Total Protein 5.9 L Albumin 2.7 L Globulin 3.20 Albumin/Globulin Ratio 0.84 Test 10/16/16 04:59 10/16/16 09:18 10/16/16 11:30 10/16/16 13:59 Bedside Glucose 209 182 197 Activated Partial Thromboplast Time 77.1 *H Medications Medications Current Medications Eye Lubricant (Artificial Tears Oph) 1 drop TID BOTH EYES Last administered on 10/16/16 13:59; Admin Dose 1 DROP; Start 10/09/16 at 09:00 Famotidine (Pepcid Iv) 20 mg DAILY IV Last administered on 10/16/16 09:22; Admin Dose 20 MG; Start 10/09/16 at 09:00 Aspirin 81 mg 81 mg DAILY PO Last administered on 10/16/16 09:22; Admin Dose 81 MG; Start 10/10/16 at 09:00 Propofol (Diprivan) 100 ml @ 0 mls/hr TITRATE IV ; Start 10/10/16 at 01:00 Miscellaneous Information 1 ea NOTE XX ; Start 10/10/16 at 02:00 Glucose (Glutose) 15 gm Q15M PRN PO DECREASED GLUCOSE; Start 10/10/16 at 02:00 Glucose (Glutose) 22.5 gm Q15M PRN PO DECREASED GLUCOSE; Start 10/10/16 at 02: 00 Dextrose (D50w Syringe) 25 ml Q15M PRN IV DECREASED GLUCOSE; Start 10/10/16 at 02:00 Dextrose (D50w Syringe) 50 ml Q15M PRN IV DECREASED GLUCOSE; Start 10/10/16 at 02:00 Glucagon (Glucagen) 1 mg Q15M PRN IM DECREASED GLUCOSE; Start 10/10/16 at 02:00 Glucose (Glutose) 15 gm Q15M PRN BUCCAL DECREASED GLUCOSE; Start 10/10/16 at 02 :00 IV Flush (NS 10 ml) 10 ml PRN PRN IV IV PROTOCOL; Start 10/10/16 at 12:30 Albuterol 4 puff 4 puff Q4 PRN INH for wheezing Last administered on 10/15/16 20:12; Admin Dose 4 PUFF; Start 10/10/16 at 13:30 Potassium Chloride/Sodium Chloride (KCl/1/2 NS) 1,020 ml @ 75 mls/hr [id number] IV Last administered on 10/16/16 00:34; Admin Dose 75 MLS/HR; Start 10/11/16 at 12:00 Metoprolol Tartrate (Lopressor) 25 mg BID PO Last administered on 10/15/16 20: 56; Admin Dose 25 MG; Start 10/12/16 at 21:00 Furosemide (Lasix) 40 mg DAILY IV Last administered on 10/15/16 09:53; Admin Dose 40 MG; Start 10/13/16 at 09:30 Acetaminophen (Tylenol Tab) 650 mg Q6H PRN PO PAIN AND OR ELEVATED TEMP Last administered on 10/15/16 22:04; Admin Dose 650 MG; Start 10/13/16 at 15:00 Insulin Glargine (Lantus) 10 unit DAILY@20 SC Last administered on 10/15/16 21 :04; Admin Dose 10 UNIT; Start 10/13/16 at 20:00 Insulin Aspart (Novolog Insulin Pen) NOVOLOG *MODERATE* ALGORI... Q4 SC Last administered on 10/16/16 13:59; Admin Dose 4 UNIT; Start 10/13/16 at 21:00 Lorazepam 1 mg 1 mg Q6H PRN IV SEIZURES Last administered on 10/15/16 20:34; Admin Dose 1 MG; Start 10/13/16 at 23:30 Levetiracetam 100 ml @ 400 mls/hr Q12 IVPB Last administered on 10/16/16 09: 22; Admin Dose 400 MLS/HR; Start 10/14/16 at 21:00 Piperacillin Sod/ Tazobactam Sod (Zosyn 3.375gm/ 100 ml (Pmx)) 100 ml @ 100 mls /hr Q6 IVPB Last administered on 10/16/16 12:58; Admin Dose 100 MLS/HR; Start 10/16/16 at 12:00 KATRIN VILLEGAS MD Oct 16, 2016 15:26
--- NOTE | 2016-10-16 18:03 | PN ---
DATE: SUBJECTIVE: The patient remains sedated, intubated. No sedatives given. OBJECTIVE: VITAL SIGNS: Temperature 99.8 oral, blood pressure 98/60, heart rate 90 per minute, pulse ox 100%. HEENT: No pallor, cyanosis, or icterus. CHEST: Few wheezes heard anteriorly. HEART: S1, S2 heard with no definite gallops. ABDOMEN: Soft, nontender. No hepatosplenomegaly. EXTREMITIES: No edema. Homans sign is negative. Extremities are warm. The patient did have 2 bowel movements last night. LABORATORY DATA: Sodium 136, potassium 4.2, BUN 30, creatinine 1.13, glucose 209, 182, 197 today. WBC count 10.7, hematocrit 28, platelet count is 120,000. EEG done today interpreted by Dr. Serrano is abnormal with bihemispheric background slowing with intermittent epileptiform activity in bitempo ral distribution. IMPRESSION: 1. Acute respiratory failure, status post cardiopulmonary arrest. 2. Anoxic encephalopathy. 3. Severe chronic obstructive pulmonary disease with aspiration pneumonia. 4. History of atrial fibrillation. 5. Diabetes mellitus type 2, well controlled. 6. Status post mitral and aortic valve replacement. PLAN: The patient's overall prognosis is guarded. We will continue IV antibiotics for now. Pulmon yudith support. I have discussed the patient's condition with the patient's daughter, Radha, who is a t the bedside. Recheck labs in a.m. Dictated By: ALEXANDR MOULTON MD, SR/NTS Conf#: [id number] DID#: [id number]
[2016-10-16] MEDS: INSULIN GLARGINE [LANtus] 3 ML PEN SC SCH (21:44)
[2016-10-17] VITALS (39 sets, daily range): BP systolic 84–120; BP diastolic 54–76; PULSE 67–95; RESP 14–29
[2016-10-17] MEDS: PIPER-TAZO 3.375 GM IV (PMX) 100 ML IVPB SCH ×4 (00:39→17:40)
[2016-10-17] MEDS: INSULIN ASPART [NOVOLOG] 3 ML PEN SC SCH ×6 (01:26→20:17)
[2016-10-17] MEDS: HEPARIN 25000 UNITS/250 ML 250 ML IV SCH (02:31)
[2016-10-17] MEDS: HEPARIN 1000 UNITS/ML 10 ML INJ IV PRN (02:34)
[2016-10-17] MEDS: ACETAMINOPHEN 325 MG TAB PO PRN (05:14)
[2016-10-17 06:20] LABS: ADD SCAN DIFF NO
[2016-10-17 06:31] LABS: ABNORMAL IP MESSAGE 1; BASOPHILS % 0.2 % (0.0-2.0); EOSINOPHILS # 0.3 10^3/ul (0.0-0.5); EOSINOPHILS % 2.5 % (0.0-7.0); HEMATOCRIT 28.1 % (42.0-52.0); LYMPHOCYTES # 0.5 10^3/ul (0.8-2.9); LYMPHOCYTES % 5.5 % (15.0-51.0); MEAN CORPUSCULAR HEMOGLOBIN 30.9 pg (29.0-33.0); MEAN CORPUSCULAR VOLUME 96.6 fl (82.0-101.0); MONOCYTE # 0.8 10^3/ul (0.3-0.9); MONOCYTES % 8.1 % (0.0-11.0); NEUTROPHILS % 81.6 % (39.0-77.0); PLATELET COUNT 149 10^3/UL (140-415); RED BLOOD COUNT 2.91 10^6/ul (4.70-6.10); RED CELL DISTRIBUTION WIDTH 17.1 % (11.5-14.5); WHITE BLOOD COUNT 9.8 10^3/ul (4.8-10.8)
[2016-10-17 06:47] LABS: ALBUMIN 2.8 g/dl (3.3-4.9); POTASSIUM 4.4 mmol/L (3.5-5.1)
[2016-10-17 06:50] LABS: ALBUMIN/GLOBULIN RATIO 0.84; BILIRUBIN,INDIRECT 0.4 mg/dl (0-1.1); BILIRUBIN,TOTAL 0.4 mg/dl (0.2-1.3); CREATININE 1.06 mg/dl (0.61-1.24); TOTAL PROTEIN 6.1 g/dl (6.1-8.1)
[2016-10-17 06:51] LABS: CALCIUM 8.9 mg/dl (8.4-10.2)
--- NOTE | 2016-10-17 07:26 | CONS ---
Date/Time of Note Date/Time of Note DATE: 10/17/16 TIME: 07:22 Assessment/Plan Assessment/Plan Chief Complaint/Hosp Course 1) Acute [place] with likely anoxic brain injury MRI done and no acute bleeds but likely signs of anoxic injury prognosis is poor 10/16 - no response to stimuli, remains intubated 10/17 - no change 2) development of L side infiltrate/effusion procalcitonin is pending Klebsiella is growing in sputum cx is very sensitive no MRSA continue with zosyn and d/c vanco get chest u/s to see if there is much fluid on L side or if mostly infiltrate 10/16 - chest u/s does not show any fluid, so this is all atelectasis/infiltrate continue with zosyn 10/17 - fevers are improved with normal WBC procalcitonin was minimally elevated on 10/12 will repeat continue with zosyn at present 3) CoNS in blood cx only one set and this likely represents contamination d/c vanco and repeat blood cx tomorrow 10/16 - repeat blood cx were done yesterday, will not repeat today continue off vanco 10/17 - repeat blood cx remain NGTD 4) ARF improving with hydration 5) DM 6) seizures none overnight or today so far Problems: Consultation Date/Type/Reason Admit Date/Time Oct 10, 2016 at 03:49 Initial Consult Date 10/15/16 Type of Consultation: ID Referring Provider: ALEXANDR MOULTON MD 24 HR Interval Summary Free Text/Dictation no change in last 24 hours tolerates TF no diarrhea had a greenish stool yesterday moderate oral secretions no verbal response but will open eyes randomly Exam/Review of Systems Vital Signs Vitals Vital Signs Date Time Temp Pulse Resp B/P Pulse Ox O2 Delivery O2 Flow Rate FiO2 10/17/16 05:40 83 16 100 30 10/17/16 04:30 99.6 95/60 10/16/16 19:30 Mechanical Ventilator Intake and Output 10/16/16 10/16/16 10/17/16 15:00 23:00 07:00 Intake Total 1470.5 ml 1209.5 ml 800 ml Output Total 740 ml 770 ml 305 ml Balance 730.5 ml 439.5 ml 495 ml Exam Constitutional: non-verbal Head: normocephalic Eyes: nl sclera ENMT: intubated Respiratory: other (phong rhonchi) Cardiovascular: regular rate and rhythm, systolic murmur Gastrointestinal: non-tender, soft Extremities: other (no edema) Results Result Diagram: 10/17/16 0550 10/17/16 0550 Results 24 hrs Laboratory Tests Test 10/16/16 09:18 10/16/16 11:30 10/16/16 13:59 10/16/16 17:56 Bedside Glucose 182 197 Activated Partial Thromboplast Time 77.1 *H 67.4 H Test 10/16/16 18:16 10/16/16 21:01 10/16/16 22:01 10/17/16 00:30 Bedside Glucose 229 H 214 216 Activated Partial Thromboplast Time 43.5 H Test 10/17/16 01:24 10/17/16 04:58 10/17/16 05:50 Bedside Glucose 210 204 White Blood Count 9.8 Red Blood Count 2.91 L Hemoglobin 9.0 L Hematocrit 28.1 L Mean Corpuscular Volume 96.6 Mean Corpuscular Hemoglobin 30.9 Mean Corpuscular Hemoglobin Concent 32.0 Red Cell Distribution Width 17.1 H Platelet Count 149 # Mean Platelet Volume 12.0 H Neutrophils % 81.6 H Lymphocytes % 5.5 L Monocytes % 8.1 Eosinophils % 2.5 Basophils % 0.2 Nucleated Red Blood Cells % 0.0 Neutrophils # 8.0 H Lymphocytes # 0.5 L Monocytes # 0.8 Eosinophils # 0.3 Basophils # 0.0 Nucleated Red Blood Cells # 0.0 Sodium Level 133 L Potassium Level 4.4 Chloride Level 99 Carbon Dioxide Level 27 Anion Gap 11 Blood Urea Nitrogen 26 H Creatinine 1.06 Glucose Level 212 Calcium Level 8.9 Total Bilirubin 0.4 Direct Bilirubin 0.00 Indirect Bilirubin 0.4 Aspartate Amino Transf (AST/SGOT) 55 H Alanine Aminotransferase (ALT/SGPT) 43 Alkaline Phosphatase 68 Total Protein 6.1 Albumin 2.8 L Globulin 3.30 H Albumin/Globulin Ratio 0.84 Medications Medications Current Medications Eye Lubricant (Artificial Tears Oph) 1 drop TID BOTH EYES Last administered on 10/16/16 21:45; Admin Dose 1 DROP; Start 10/09/16 at 09:00 Famotidine (Pepcid Iv) 20 mg DAILY IV Last administered on 10/16/16 09:22; Admin Dose 20 MG; Start 10/09/16 at 09:00 Aspirin 81 mg 81 mg DAILY PO Last administered on 10/16/16 09:22; Admin Dose 81 MG; Start 10/10/16 at 09:00 Propofol (Diprivan) 100 ml @ 0 mls/hr TITRATE IV ; Start 10/10/16 at 01:00 Miscellaneous Information 1 ea NOTE XX ; Start 10/10/16 at 02:00 Glucose (Glutose) 15 gm Q15M PRN PO DECREASED GLUCOSE; Start 10/10/16 at 02:00 Glucose (Glutose) 22.5 gm Q15M PRN PO DECREASED GLUCOSE; Start 10/10/16 at 02: 00 Dextrose (D50w Syringe) 25 ml Q15M PRN IV DECREASED GLUCOSE; Start 10/10/16 at 02:00 Dextrose (D50w Syringe) 50 ml Q15M PRN IV DECREASED GLUCOSE; Start 10/10/16 at 02:00 Glucagon (Glucagen) 1 mg Q15M PRN IM DECREASED GLUCOSE; Start 10/10/16 at 02:00 Glucose (Glutose) 15 gm Q15M PRN BUCCAL DECREASED GLUCOSE; Start 10/10/16 at 02 :00 IV Flush (NS 10 ml) 10 ml PRN PRN IV IV PROTOCOL; Start 10/10/16 at 12:30 Albuterol 4 puff 4 puff Q4 PRN INH for wheezing Last administered on 10/15/16 20:12; Admin Dose 4 PUFF; Start 10/10/16 at 13:30 Potassium Chloride/Sodium Chloride (KCl/1/2 NS) 1,020 ml @ 75 mls/hr [id number] IV Last administered on 10/16/16 19:47; Admin Dose 75 MLS/HR; Start 10/11/16 at 12:00 Metoprolol Tartrate (Lopressor) 25 mg BID PO Last administered on 10/15/16 20: 56; Admin Dose 25 MG; Start 10/12/16 at 21:00 Furosemide (Lasix) 40 mg DAILY IV Last administered on 10/15/16 09:53; Admin Dose 40 MG; Start 10/13/16 at 09:30 Acetaminophen (Tylenol Tab) 650 mg Q6H PRN PO PAIN AND OR ELEVATED TEMP Last administered on 10/17/16 05:14; Admin Dose 650 MG; Start 10/13/16 at 15:00 Insulin Glargine (Lantus) 10 unit DAILY@20 SC Last administered on 10/16/16 21 :44; Admin Dose 10 UNIT; Start 10/13/16 at 20:00 Insulin Aspart (Novolog Insulin Pen) NOVOLOG *MODERATE* ALGORI... Q4 SC Last administered on 10/17/16 05:10; Admin Dose 4 UNIT; Start 10/13/16 at 21:00 Lorazepam 1 mg 1 mg Q6H PRN IV SEIZURES Last administered on 10/15/16 20:34; Admin Dose 1 MG; Start 10/13/16 at 23:30 Levetiracetam 100 ml @ 400 mls/hr Q12 IVPB Last administered on 10/16/16 21: 52; Admin Dose 400 MLS/HR; Start 10/14/16 at 21:00 Piperacillin Sod/ Tazobactam Sod (Zosyn 3.375gm/ 100 ml (Pmx)) 100 ml @ 100 mls /hr Q6 IVPB Last administered on 10/17/16 05:54; Admin Dose 100 MLS/HR; Start 10/16/16 at 12:00 MANISH MULLINS MD October 17, 2016 07:26
[2016-10-17] MEDS: FUROSEMIDE 40 MG INJ IV SCH (09:15)
[2016-10-17] MEDS: METOPROLOL 25 MG TAB PO SCH ×2 (09:15→21:35)
[2016-10-17] MEDS: ARTIFICIAL TEARS 15 ML OPH BOTH EYES SCH ×3 (09:15→20:18)
[2016-10-17] MEDS: FAMOTIDINE 20 MG INJ IV SCH (09:15)
[2016-10-17] MEDS: LEVETIRACETAM 500 MG (PMX) 100 ML IVPB SCH ×2 (09:15→20:36)
[2016-10-17] MEDS: ASPIRIN 81 MG TAB PO SCH (09:15)
--- NOTE | 2016-10-17 10:01 | CONS ---
Date/Time of Note Date/Time of Note DATE: 10/17/16 TIME: 09:59 Consult Date/Type/Reason Admit Date/Time Oct 10, 2016 at 03:49 Initial Consult Date 10/10/16 Type of Consultation: Pulmonary ICU Ordering Provider: ALEXANDR MOULTON MD Subjective Patient remains mostly somnolent eyes open but not following commands or any purposeful movement Continuous mechanical ventilation Currently remains hemodynamically stable Objective Vital Signs Date Time Temp Pulse Resp B/P Pulse Ox O2 Delivery O2 Flow Rate FiO2 10/17/16 09:42 70 14 100 30 10/17/16 07:00 89/63 10/17/16 04:30 99.6 10/16/16 19:30 Mechanical Ventilator Intake and Output 10/16/16 10/16/16 10/17/16 15:00 23:00 07:00 Intake Total 1470.5 ml 1209.5 ml 955.5 ml Output Total 740 ml 770 ml 305 ml Balance 730.5 ml 439.5 ml 650.5 ml Exam PHYSICAL EXAMINATION GENERAL: Elderly gentleman, intubated on mechanical ventilation. Orally intubated. VITAL SIGNS: see below. HEENT: Pupils equal, round, and reactive to light. Eyes open but not tracking or following commands CARDIAC: S1, S2, tachycardia. CHEST: Diminished air entry bilaterally. ABDOMEN: Mildly distended. Decreased bowel sounds no guarding or rebound EXTREMITIES: No cyanosis, clubbing or edema. NEUROLOGIC: No gag reflex Results/Medications Result Diagram: 10/17/16 0550 10/17/16 0550 Results 24 hrs Laboratory Tests Test 10/16/16 11:30 10/16/16 13:59 10/16/16 17:56 10/16/16 18:16 Activated Partial Thromboplast Time 77.1 *H 67.4 H Bedside Glucose 197 229 H Test 10/16/16 21:01 10/16/16 22:01 10/17/16 00:30 10/17/16 01:24 Bedside Glucose 214 216 210 Activated Partial Thromboplast Time 43.5 H Test 10/17/16 04:58 10/17/16 05:50 10/17/16 09:17 Bedside Glucose 204 241 H White Blood Count 9.8 Red Blood Count 2.91 L Hemoglobin 9.0 L Hematocrit 28.1 L Mean Corpuscular Volume 96.6 Mean Corpuscular Hemoglobin 30.9 Mean Corpuscular Hemoglobin Concent 32.0 Red Cell Distribution Width 17.1 H Platelet Count 149 # Mean Platelet Volume 12.0 H Neutrophils % 81.6 H Lymphocytes % 5.5 L Monocytes % 8.1 Eosinophils % 2.5 Basophils % 0.2 Nucleated Red Blood Cells % 0.0 Neutrophils # 8.0 H Lymphocytes # 0.5 L Monocytes # 0.8 Eosinophils # 0.3 Basophils # 0.0 Nucleated Red Blood Cells # 0.0 Sodium Level 133 L Potassium Level 4.4 Chloride Level 99 Carbon Dioxide Level 27 Anion Gap 11 Blood Urea Nitrogen 26 H Creatinine 1.06 Glucose Level 212 Calcium Level 8.9 Total Bilirubin 0.4 Direct Bilirubin 0.00 Indirect Bilirubin 0.4 Aspartate Amino Transf (AST/SGOT) 55 H Alanine Aminotransferase (ALT/SGPT) 43 Alkaline Phosphatase 68 Total Protein 6.1 Albumin 2.8 L Globulin 3.30 H Albumin/Globulin Ratio 0.84 Medications Current Medications Eye Lubricant (Artificial Tears Oph) 1 drop TID BOTH EYES Last administered on 10/17/16 09:15; Admin Dose 1 DROP; Start 10/09/16 at 09:00 Famotidine (Pepcid Iv) 20 mg DAILY IV Last administered on 10/17/16 09:15; Admin Dose 20 MG; Start 10/09/16 at 09:00 Aspirin 81 mg 81 mg DAILY PO Last administered on 10/17/16 09:15; Admin Dose 81 MG; Start 10/10/16 at 09:00 Propofol (Diprivan) 100 ml @ 0 mls/hr TITRATE IV ; Start 10/10/16 at 01:00 Miscellaneous Information 1 ea NOTE XX ; Start 10/10/16 at 02:00 Glucose (Glutose) 15 gm Q15M PRN PO DECREASED GLUCOSE; Start 10/10/16 at 02:00 Glucose (Glutose) 22.5 gm Q15M PRN PO DECREASED GLUCOSE; Start 10/10/16 at 02: 00 Dextrose (D50w Syringe) 25 ml Q15M PRN IV DECREASED GLUCOSE; Start 10/10/16 at 02:00 Dextrose (D50w Syringe) 50 ml Q15M PRN IV DECREASED GLUCOSE; Start 10/10/16 at 02:00 Glucagon (Glucagen) 1 mg Q15M PRN IM DECREASED GLUCOSE; Start 10/10/16 at 02:00 Glucose (Glutose) 15 gm Q15M PRN BUCCAL DECREASED GLUCOSE; Start 10/10/16 at 02 :00 IV Flush (NS 10 ml) 10 ml PRN PRN IV IV PROTOCOL; Start 10/10/16 at 12:30 Albuterol 4 puff 4 puff Q4 PRN INH for wheezing Last administered on 10/15/16 20:12; Admin Dose 4 PUFF; Start 10/10/16 at 13:30 Potassium Chloride/Sodium Chloride (KCl/1/2 NS) 1,020 ml @ 75 mls/hr [id number] IV Last administered on 10/16/16 19:47; Admin Dose 75 MLS/HR; Start 10/11/16 at 12:00 Metoprolol Tartrate (Lopressor) 25 mg BID PO Last administered on 10/17/16 09: 15; Admin Dose 25 MG; Start 10/12/16 at 21:00 Furosemide (Lasix) 40 mg DAILY IV Last administered on 10/17/16 09:15; Admin Dose 40 MG; Start 10/13/16 at 09:30 Acetaminophen (Tylenol Tab) 650 mg Q6H PRN PO PAIN AND OR ELEVATED TEMP Last administered on 10/17/16 05:14; Admin Dose 650 MG; Start 10/13/16 at 15:00 Insulin Glargine (Lantus) 10 unit DAILY@20 SC Last administered on 10/16/16 21 :44; Admin Dose 10 UNIT; Start 10/13/16 at 20:00 Insulin Aspart (Novolog Insulin Pen) NOVOLOG *MODERATE* ALGORI... Q4 SC Last administered on 10/17/16 09:26; Admin Dose 6 UNIT; Start 10/13/16 at 21:00 Lorazepam 1 mg 1 mg Q6H PRN IV SEIZURES Last administered on 10/15/16 20:34; Admin Dose 1 MG; Start 10/13/16 at 23:30 Levetiracetam 100 ml @ 400 mls/hr Q12 IVPB Last administered on 10/17/16 09:15 ; Admin Dose 400 MLS/HR; Start 10/14/16 at 21:00 Piperacillin Sod/ Tazobactam Sod (Zosyn 3.375gm/ 100 ml (Pmx)) 100 ml @ 100 mls /hr Q6 IVPB Last administered on 10/17/16t 05:54; Admin Dose 100 MLS/HR; Start 10/16/16 at 12:00 Assessment/Plan Chief Complaint/Hosp Course Assessment 1. Cardiopulmonary arrest 2. Probable anoxic brain injury 3. Aspiration pneumonia 4. Hypernatremia likely prerenal 5. Dysphagia secondary to above 6. Pulmonary edema improved today Plan 1. Continue mechanical ventilation 2. Continue current antibiotics 3. Continue to feeding 4. EEG and neurology recommendations 5. DVT GI prophylaxis 6. Free water for correction of hyponatremia Disposition Family conference today regarding goals of care. Prognosis very poor. Problems: NASH DOUGLASS MD, FCCP October 17, 2016 10:01
[2016-10-17] MEDS: POTASSIUM CHLORIDE 40 MEQ in SOD CHLORIDE 0.45% 1,000 ML IV SCH (11:36)
--- NOTE | 2016-10-17 12:27 | CONS ---
Date/Time of Note Date/Time of Note DATE: 10/17/16 TIME: 12:24 Assessment/Plan Assessment/Plan Chief Complaint/Hosp Course IMPRESSION: 1. Positive troponins/non-ST elevation myocardial infarction, likely secondary to the patient's cardiopulmonary arrest, as the patient has had recent left heart catheterization July 2016 revealing no significant obstructive disease.-now troponin trended negative 2. Congestive heart failure, diastolic, acute on chronic, as the patient has undergone a 2D echo during this admission, interpreted by another call centre supervisor as having a preserved EF of 65% with mild aortic stenosis and mild prosthetic mitral valve and moderate tricuspid regurgitation. 3. Abnormal electrocardiogram with diffuse nonspecific ST and T-wave abnormalities, 4. Respiratory failure, status post intubation. 5. Encephalopathy. 6. History of mitral valve replacement with bioprosthesis. 7. Atrial fibrillation on heparin-rate controlled 8. Hypotension, borderline. 9. Diabetes mellitus. 10. Anemia. 11. Renal failure-improved. 12.seizure episode-focal of leg improved with benzo Recc: -Tele -Continue asa -Continue BB as tolerated only -Continue daily lasix diuresis as tolerated -Follow MS closely -Continue heparin -wean vent as possible -Family conference pending to discuss goals of care Problems: Consultation Date/Type/Reason Admit Date/Time Oct 10, 2016 at 03:49 Initial Consult Date 10/10/16 Type of Consultation: Cardiology Reason for Consultation Nstemi Referring Provider: ALEXANDR MOULTON MD Exam/Review of Systems Vital Signs Vitals Vital Signs Date Time Temp Pulse Resp B/P Pulse Ox O2 Delivery O2 Flow Rate FiO2 10/17/16 11:15 63 14 100 30 10/17/16 11:00 98/62 Mechanical Ventilator 10/17/16 08:00 97.6 Intake and Output 10/16/16 10/16/16 10/17/16 15:00 23:00 07:00 Intake Total 1470.5 ml 1209.5 ml 955.5 ml Output Total 740 ml 770 ml 305 ml Balance 730.5 ml 439.5 ml 650.5 ml Exam Review of Systems: CONSTITUTIONAL: No fevers, chills. PULMONARY: intubated CARDIOVASCULAR: No obvious chest pain/palpitations GASTROINTESTINAL: No nausea/vomiting. GENITOURINARY: No hematuria/dysuria. MUSCULOSKELETAL: No obvious myagias/arthalgias. PSYCHIATRIC: The patient denies depression. NEUROLOGIC: Encephlopathy Constitutional: other (encephalopathic) Psych: no complaints Head: normocephalic ENMT: mucosa pink and moist Neck: jvd (9 cm water), supple Respiratory: diminished breath sounds (at bases/B) Cardiovascular: regular rate and rhythm Gastrointestinal: non-tender, soft Musculoskeletal: muscle tone (normal) Extremities: edema (none) 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: other (No focal deficits) Results Result Diagram: 10/17/16 0550 10/17/16 0550 Results 24 hrs Laboratory Tests Test 10/16/16 13:59 10/16/16 17:56 10/16/16 18:16 10/16/16 21:01 Bedside Glucose 197 229 H 214 Activated Partial Thromboplast Time 67.4 H Test 10/16/16 22:01 10/17/16 00:30 10/17/16 01:24 10/17/16 04:58 Bedside Glucose 216 210 204 Activated Partial Thromboplast Time 43.5 H Test 10/17/16 05:50 10/17/16 09:17 White Blood Count 9.8 Red Blood Count 2.91 L Hemoglobin 9.0 L Hematocrit 28.1 L Mean Corpuscular Volume 96.6 Mean Corpuscular Hemoglobin 30.9 Mean Corpuscular Hemoglobin Concent 32.0 Red Cell Distribution Width 17.1 H Platelet Count 149 # Mean Platelet Volume 12.0 H Neutrophils % 81.6 H Lymphocytes % 5.5 L Monocytes % 8.1 Eosinophils % 2.5 Basophils % 0.2 Nucleated Red Blood Cells % 0.0 Neutrophils # 8.0 H Lymphocytes # 0.5 L Monocytes # 0.8 Eosinophils # 0.3 Basophils # 0.0 Nucleated Red Blood Cells # 0.0 Sodium Level 133 L Potassium Level 4.4 Chloride Level 99 Carbon Dioxide Level 27 Anion Gap 11 Blood Urea Nitrogen 26 H Creatinine 1.06 Glucose Level 212 Calcium Level 8.9 Total Bilirubin 0.4 Direct Bilirubin 0.00 Indirect Bilirubin 0.4 Aspartate Amino Transf (AST/SGOT) 55 H Alanine Aminotransferase (ALT/SGPT) 43 Alkaline Phosphatase 68 Total Protein 6.1 Albumin 2.8 L Globulin 3.30 H Albumin/Globulin Ratio 0.84 Bedside Glucose 241 H Medications Medications Current Medications Eye Lubricant (Artificial Tears Oph) 1 drop TID BOTH EYES Last administered on 10/17/16 09:15; Admin Dose 1 DROP; Start 10/09/16 at 09:00 Famotidine (Pepcid Iv) 20 mg DAILY IV Last administered on 10/17/16 09:15; Admin Dose 20 MG; Start 10/09/16 at 09:00 Aspirin 81 mg 81 mg DAILY PO Last administered on 10/17/16 09:15; Admin Dose 81 MG; Start 10/10/16 at 09:00 Propofol (Diprivan) 100 ml @ 0 mls/hr TITRATE IV ; Start 10/10/16 at 01:00 Miscellaneous Information 1 ea NOTE XX ; Start 10/10/16 at 02:00 Glucose (Glutose) 15 gm Q15M PRN PO DECREASED GLUCOSE; Start 10/10/16 at 02:00 Glucose (Glutose) 22.5 gm Q15M PRN PO DECREASED GLUCOSE; Start 10/10/16 at 02: 00 Dextrose (D50w Syringe) 25 ml Q15M PRN IV DECREASED GLUCOSE; Start 10/10/16 at 02:00 Dextrose (D50w Syringe) 50 ml Q15M PRN IV DECREASED GLUCOSE; Start 10/10/16 at 02:00 Glucagon (Glucagen) 1 mg Q15M PRN IM DECREASED GLUCOSE; Start 10/10/16 at 02:00 Glucose (Glutose) 15 gm Q15M PRN BUCCAL DECREASED GLUCOSE; Start 10/10/16 at 02 :00 IV Flush (NS 10 ml) 10 ml PRN PRN IV IV PROTOCOL; Start 10/10/16 at 12:30 Albuterol 4 puff 4 puff Q4 PRN INH for wheezing Last administered on 10/15/16 20:12; Admin Dose 4 PUFF; Start 10/10/16 at 13:30 Potassium Chloride/Sodium Chloride (KCl/1/2 NS) 1,020 ml @ 75 mls/hr [id number] IV Last administered on 10/17/16 11:36; Admin Dose 75 MLS/HR; Start 10/11/16 at 12:00 Metoprolol Tartrate (Lopressor) 25 mg BID PO Last administered on 10/17/16 09: 15; Admin Dose 25 MG; Start 10/12/16 at 21:00 Furosemide (Lasix) 40 mg DAILY IV Last administered on 10/17/16 09:15; Admin Dose 40 MG; Start 10/13/16 at 09:30 Acetaminophen (Tylenol Tab) 650 mg Q6H PRN PO PAIN AND OR ELEVATED TEMP Last administered on 10/17/16 05:14; Admin Dose 650 MG; Start 10/13/16 at 15:00 Insulin Glargine (Lantus) 10 unit DAILY@20 SC Last administered on 10/16/16 21 :44; Admin Dose 10 UNIT; Start 10/13/16 at 20:00 Insulin Aspart (Novolog Insulin Pen) NOVOLOG *MODERATE* ALGORI... Q4 SC Last administered on 10/17/16 09:26; Admin Dose 6 UNIT; Start 10/13/16 at 21:00 Lorazepam 1 mg 1 mg Q6H PRN IV SEIZURES Last administered on 10/15/16 20:34; Admin Dose 1 MG; Start 10/13/16 at 23:30 Levetiracetam 100 ml @ 400 mls/hr Q12 IVPB Last administered on 10/17/16 09:15 ; Admin Dose 400 MLS/HR; Start 10/14/16 at 21:00 Piperacillin Sod/ Tazobactam Sod (Zosyn 3.375gm/ 100 ml (Pmx)) 100 ml @ 100 mls /hr Q6 IVPB Last administered on 10/17/16 11:32; Admin Dose 100 MLS/HR; Start 10/16/16 at 12:00 ESTEFANI BORREGO October 17, 2016 12:27
--- NOTE | 2016-10-17 19:30 | PN ---
DATE: 10/17/2016 SUBJECTIVE: The patient remains sedated, intubated, (not on any anxiolytics). PHYSICAL EXAMINATION: VITAL SIGNS: Temperature 97.6, blood pressure 109/71, pulse ox 100%, respiratory rate 14 per minute . NEUROLOGIC: The patient does not follow any commands, does not exhibit any purposeful movement at t his time. CHEST: Few wheezes heard anteriorly. HEART: S1, S2 heard with no definite gallops. ABDOMEN: Soft. Decreased bowel sounds, no guarding. EXTREMITIES: No edema. Homans sign is negative. LABORATORY DATA: Blood glucose levels this morning 210, 204, 241, 200. Potassium 4.4, BUN 26, crea tinine 1.06. WBC count 9.8, hematocrit 28.1, PTT 123.2. IMPRESSION: 1. Status post cardiopulmonary arrest with anoxic encephalopathy. 2. Acute respiratory failure with aspiration pneumonia. 3. Severe chronic obstructive pulmonary disease. 4. Atrial fibrillation. 5. Diabetes mellitus type 2, not adequately controlled. 6. Status post mitral and aortic valve replacement with congestive heart failure, diastolic, acute on chronic. PLAN: Will decrease water flushes in view of the low sodium, increase the Lantus insulin to 15 unit s q.p.m. Recheck labs in a.m. His overall prognosis is guarded. Will discuss with the patient's f yunior. Dictated By: ALEXANDR MOULTON MD, SR/SUDHAKAR Conf#: [id number] DID#: [id number]
[2016-10-17] MEDS: INSULIN GLARGINE [LANtus] 3 ML PEN SC SCH (20:16)
--- NOTE | 2016-10-17 20:53 | PN ---
DATE: 10/17/2016 PALLIATIVE CARE FOLLOWUP NOTE EVENTS: I had an extensive conversation with the patient's 4 today. We covered his current m edical condition, and I discussed all the consultants notes and answered all questions. Family memb ers are still conflicted at this time. However, they are speaking amongst themselves and trying to come to an agreement, so to speak, as to ongoing level of care. They made it very clear that their would not want to continue in his current medical condition. Participants, once again, were 4 of the patient's . I met with other family members yesterday on . They have clear under standing of his current medical condition and his prognosis. Their hopes are just that he does not suffer and that they have an accessible end of life care. Strength and spiritual mihai have been re viewed, as well as culture and communication issues. Past experiences once again with serious medic al issues have been discussed and once again patient's family state they believe strongly he would w ant to live on artificial life support. Goals of care are to touch base with family members once again in 2 days, which will be day 10 being on the ventilator. Estimated prognosis is extremely poor. We will continue to support family memb ers. Psychosocial and spiritual issues have been addressed. There is no pain management issue that should be addressed. Ethical issues and surrogate issues have been discussed with family members. They are in a position to make all decisions on behalf of patient. Unfortunately, has dementi a. Code status has been addressed once again and family wants to discuss that in more detail amongs t themselves until possibly tomorrow. Hopefully as soon as that. Followup will be done tomorrow, a t the latest in 2 days. Dictated By: JANELL KIM MD, LP/SUDHAKAR Conf#: [id number] DID#: [id number]
[2016-10-18] VITALS (66 sets, daily range): BP systolic 72–133; BP diastolic 47–91; PULSE 59–93; RESP 12–48
[2016-10-18] MEDS: PIPER-TAZO 3.375 GM IV (PMX) 100 ML IVPB SCH ×4 (00:14→18:06)
[2016-10-18] MEDS: INSULIN ASPART [NOVOLOG] 3 ML PEN SC SCH ×6 (00:58→21:46)
[2016-10-18 03:41] LABS: ADD SCAN DIFF NO
[2016-10-18 03:43] LABS: ABNORMAL IP MESSAGE 1; BASOPHILS % 0.3 % (0.0-2.0); EOSINOPHILS # 0.3 10^3/ul (0.0-0.5); EOSINOPHILS % 2.9 % (0.0-7.0); HEMATOCRIT 26.4 % (42.0-52.0); HEMOGLOBIN 8.6 g/dl (14.0-18.0); LYMPHOCYTES # 0.4 10^3/ul (0.8-2.9); LYMPHOCYTES % 4.8 % (15.0-51.0); MEAN CORPUSCULAR HEMOGLOBIN 31.2 pg (29.0-33.0); MEAN CORPUSCULAR HGB CONC 32.6 g/dl (32.0-37.0); MEAN CORPUSCULAR VOLUME 95.7 fl (82.0-101.0); MEAN PLATELET VOLUME 11.2 fl (7.4-10.4); MONOCYTE # 0.7 10^3/ul (0.3-0.9); MONOCYTES % 7.9 % (0.0-11.0); NEUTROPHIL # 7.2 10^3/ul (1.6-7.5); NEUTROPHILS % 82.3 % (39.0-77.0); PLATELET COUNT 181 10^3/UL (140-415); RED BLOOD COUNT 2.76 10^6/ul (4.70-6.10); WHITE BLOOD COUNT 8.7 10^3/ul (4.8-10.8)
[2016-10-18] MEDS: POTASSIUM CHLORIDE 40 MEQ in SOD CHLORIDE 0.45% 1,000 ML IV SCH ×3 (03:58→20:48)
[2016-10-18 04:04] LABS: ALBUMIN 2.8 g/dl (3.3-4.9); POTASSIUM 4.4 mmol/L (3.5-5.1)
[2016-10-18 04:06] LABS: BILIRUBIN,INDIRECT 0.3 mg/dl (0-1.1); BILIRUBIN,TOTAL 0.3 mg/dl (0.2-1.3); CREATININE 1.09 mg/dl (0.61-1.24)
[2016-10-18 04:07] LABS: ALBUMIN/GLOBULIN RATIO 0.87
[2016-10-18] MEDS: HEPARIN 25000 UNITS/250 ML 250 ML IV SCH (04:11)
--- NOTE | 2016-10-18 07:20 | CONS ---
Date/Time of Note Date/Time of Note DATE: 10/18/16 TIME: 07:10 Assessment/Plan Assessment/Plan Chief Complaint/Hosp Course 1) Acute ID with likely anoxic brain injury MRI done and no acute bleeds but likely signs of anoxic injury prognosis is poor 10/16 - no response to stimuli, remains intubated 10/17 - no change 10/18 - no change, prognosis grim 2) development of L side infiltrate/effusion procalcitonin is pending Klebsiella is growing in sputum cx is very sensitive no MRSA continue with zosyn and d/c vanco get chest u/s to see if there is much fluid on L side or if mostly infiltrate 10/16 - chest u/s does not show any fluid, so this is all atelectasis/infiltrate continue with zosyn 10/17 - fevers are improved with normal WBC procalcitonin was minimally elevated on 10/12 will repeat continue with zosyn at present 10/18 - stable 3) CoNS in blood cx only one set and this likely represents contamination d/c vanco and repeat blood cx tomorrow 10/16 - repeat blood cx were done yesterday, will not repeat today continue off vanco 10/17 - repeat blood cx remain NGTD 4) ARF improving with hydration 5) DM 6) seizures none overnight or today so far 7) diarrhea 10/18 - stool for c.dif and start probiotics Problems: Consultation Date/Type/Reason Admit Date/Time Oct 10, 2016 at 03:49 Initial Consult Date 10/15/16 Type of Consultation: ID Referring Provider: ALEXANDR MOULTON MD 24 HR Interval Summary Free Text/Dictation pt is having diarrhea no V still moderate secretions from ET Exam/Review of Systems Vital Signs Vitals Vital Signs Date Time Temp Pulse Resp B/P Pulse Ox O2 Delivery O2 Flow Rate FiO2 10/18/16 06:00 82 17 97/62 100 Mechanical Ventilator 10/18/16 05:48 30 10/18/16 04:00 99.0 Intake and Output 10/17/16 10/17/16 10/18/16 15:00 23:00 07:00 Intake Total 1397.5 ml 1409.0 ml 1179.5 ml Output Total 2750 ml 1250 ml 825 ml Balance -1352.5 ml 159.0 ml 354.5 ml Exam Constitutional: non-verbal, other (no response) Head: normocephalic Eyes: nl sclera Respiratory: clear to auscultation, other (decreased BS at bases) Cardiovascular: regular rate and rhythm Gastrointestinal: non-tender, soft Extremities: other (no edema) Results Result Diagram: 10/18/16 0330 10/18/16 0330 Results 24 hrs Laboratory Tests Test 10/17/16 09:17 10/17/16 11:55 10/17/16 13:35 10/17/16 13:36 Bedside Glucose 241 H 220 Activated Partial Thromboplast Time 123.2 *H 95.1 *H Test 10/17/16 17:36 10/17/16 20:14 10/17/16 20:35 10/18/16 00:56 Bedside Glucose 226 H 222 H 190 Activated Partial Thromboplast Time 86.7 *H Test 10/18/16 03:30 10/18/16 05:08 White Blood Count 8.7 Red Blood Count 2.76 L Hemoglobin 8.6 L Hematocrit 26.4 L Mean Corpuscular Volume 95.7 Mean Corpuscular Hemoglobin 31.2 Mean Corpuscular Hemoglobin Concent 32.6 Red Cell Distribution Width 17.0 H Platelet Count 181 # Mean Platelet Volume 11.2 H Neutrophils % 82.3 H Lymphocytes % 4.8 L Monocytes % 7.9 Eosinophils % 2.9 Basophils % 0.3 Nucleated Red Blood Cells % 0.0 Neutrophils # 7.2 Lymphocytes # 0.4 L Monocytes # 0.7 Eosinophils # 0.3 Basophils # 0.0 Nucleated Red Blood Cells # 0.0 Activated Partial Thromboplast Time 77.2 *H Sodium Level 134 L Potassium Level 4.4 Chloride Level 97 Carbon Dioxide Level 28 Anion Gap 13 Blood Urea Nitrogen 26 H Creatinine 1.09 Glucose Level 194 Calcium Level 9.0 Total Bilirubin 0.3 Direct Bilirubin 0.00 Indirect Bilirubin 0.3 Aspartate Amino Transf (AST/SGOT) 51 H Alanine Aminotransferase (ALT/SGPT) 35 Alkaline Phosphatase 67 Total Protein 6.0 L Albumin 2.8 L Globulin 3.20 Albumin/Globulin Ratio 0.87 Bedside Glucose 206 Medications Medications Current Medications Eye Lubricant (Artificial Tears Oph) 1 drop TID BOTH EYES Last administered on 10/17/16t 20:18; Admin Dose 1 DROP; Start 10/09/16 at 09:00 Famotidine (Pepcid Iv) 20 mg DAILY IV Last administered on 10/17/16 09:15; Admin Dose 20 MG; Start 10/09/16 at 09:00 Aspirin 81 mg 81 mg DAILY PO Last administered on 10/17/16 09:15; Admin Dose 81 MG; Start 10/10/16 at 09:00 Propofol (Diprivan) 100 ml @ 0 mls/hr TITRATE IV ; Start 10/10/16 at 01:00 Miscellaneous Information 1 ea NOTE XX ; Start 10/10/16 at 02:00 Glucose (Glutose) 15 gm Q15M PRN PO DECREASED GLUCOSE; Start 10/10/16 at 02:00 Glucose (Glutose) 22.5 gm Q15M PRN PO DECREASED GLUCOSE; Start 10/10/16 at 02: 00 Dextrose (D50w Syringe) 25 ml Q15M PRN IV DECREASED GLUCOSE; Start 10/10/16 at 02:00 Dextrose (D50w Syringe) 50 ml Q15M PRN IV DECREASED GLUCOSE; Start 10/10/16 at 02:00 Glucagon (Glucagen) 1 mg Q15M PRN IM DECREASED GLUCOSE; Start 10/10/16 at 02:00 Glucose (Glutose) 15 gm Q15M PRN BUCCAL DECREASED GLUCOSE; Start 10/10/16 at 02 :00 IV Flush (NS 10 ml) 10 ml PRN PRN IV IV PROTOCOL; Start 10/10/16 at 12:30 Albuterol 4 puff 4 puff Q4 PRN INH for wheezing Last administered on 10/15/16 20:12; Admin Dose 4 PUFF; Start 10/10/16 at 13:30 Potassium Chloride/Sodium Chloride (KCl/1/2 NS) 1,020 ml @ 75 mls/hr [id number] IV Last administered on 10/18/16 03:58; Admin Dose 75 MLS/HR; Start 10/11/16 at 12:00 Metoprolol Tartrate (Lopressor) 25 mg BID PO Last administered on 10/17/16 21: 35; Admin Dose 25 MG; Start 10/12/16 at 21:00 Furosemide (Lasix) 40 mg DAILY IV Last administered on 10/17/16 09:15; Admin Dose 40 MG; Start 10/13/16 at 09:30 Acetaminophen (Tylenol Tab) 650 mg Q6H PRN PO PAIN AND OR ELEVATED TEMP Last administered on 10/17/16 05:14; Admin Dose 650 MG; Start 10/13/16 at 15:00 Insulin Aspart (Novolog Insulin Pen) NOVOLOG *MODERATE* ALGORI... Q4 SC Last administered on 10/18/16 05:10; Admin Dose 4 UNIT; Start 10/13/16 at 21:00 Lorazepam 1 mg 1 mg Q6H PRN IV SEIZURES Last administered on 10/15/16 20:34; Admin Dose 1 MG; Start 10/13/16 at 23:30 Levetiracetam 100 ml @ 400 mls/hr Q12 IVPB Last administered on 10/17/16 20:36 ; Admin Dose 400 MLS/HR; Start 10/14/16 at 21:00 Piperacillin Sod/ Tazobactam Sod (Zosyn 3.375gm/ 100 ml (Pmx)) 100 ml @ 100 mls /hr Q6 IVPB Last administered on 10/18/16 05:11; Admin Dose 100 MLS/HR; Start 10/16/16 at 12:00 Insulin Glargine (Lantus) 15 unit DAILY@20 SC Last administered on 10/17/16 20: 16; Admin Dose 15 UNIT; Start 10/17/16 at 20:00 MANISH MULLINS MD October 18, 2016 07:19
[2016-10-18] MEDS: METOPROLOL 25 MG TAB PO SCH ×2 (09:00→21:00)
[2016-10-18] MEDS: FUROSEMIDE 40 MG INJ IV SCH (09:00)
[2016-10-18] MEDS: L ACIDOPHIL/B LACTIS/B LONGUM CAPSULE NGT SCH ×2 (09:00→21:54)
--- NOTE | 2016-10-18 09:29 | CONS ---
Date/Time of Note Date/Time of Note DATE: 10/18/16 TIME: 09:27 Consult Date/Type/Reason Admit Date/Time Oct 10, 2016 at 03:49 Initial Consult Date 10/10/16 Type of Consultation: pulmonary ICU Ordering Provider: ALEXANDR MOULTON MD Subjective No significant changes neurologically opens eyes but not following commands Continues mechanical ventilation Currently he remains hemodynamic stable Objective Vital Signs Date Time Temp Pulse Resp B/P Pulse Ox O2 Delivery O2 Flow Rate FiO2 10/18/16 08:00 98.6 85 17 95/56 100 Mechanical Ventilator 10/18/16 05:48 30 Intake and Output 10/17/16 10/17/16 10/18/16 15:00 23:00 07:00 Intake Total 1397.5 ml 1409.0 ml 1179.5 ml Output Total 2750 ml 1250 ml 825 ml Balance -1352.5 ml 159.0 ml 354.5 ml Exam PHYSICAL EXAMINATION GENERAL: Elderly gentleman, intubated on mechanical ventilation. Orally intubated. VITAL SIGNS: see below. HEENT: Pupils equal, round, and reactive to light. Eyes open but not tracking or following commands CARDIAC: S1, S2, tachycardia. CHEST: Diminished air entry bilaterally. ABDOMEN: Mildly distended. Decreased bowel sounds no guarding or rebound EXTREMITIES: No cyanosis, clubbing or edema. NEUROLOGIC: No gag reflex Results/Medications Result Diagram: 10/18/16 0330 10/18/16 0330 Results 24 hrs Laboratory Tests Test 10/17/16 11:55 10/17/16 13:35 10/17/16 13:36 10/17/16 17:36 Activated Partial Thromboplast Time 123.2 *H 95.1 *H Bedside Glucose 220 226 H Test 10/17/16 20:14 10/17/16 20:35 10/18/16 00:56 10/18/16 03:30 Bedside Glucose 222 H 190 Activated Partial Thromboplast Time 86.7 *H 77.2 *H White Blood Count 8.7 Red Blood Count 2.76 L Hemoglobin 8.6 L Hematocrit 26.4 L Mean Corpuscular Volume 95.7 Mean Corpuscular Hemoglobin 31.2 Mean Corpuscular Hemoglobin Concent 32.6 Red Cell Distribution Width 17.0 H Platelet Count 181 # Mean Platelet Volume 11.2 H Neutrophils % 82.3 H Lymphocytes % 4.8 L Monocytes % 7.9 Eosinophils % 2.9 Basophils % 0.3 Nucleated Red Blood Cells % 0.0 Neutrophils # 7.2 Lymphocytes # 0.4 L Monocytes # 0.7 Eosinophils # 0.3 Basophils # 0.0 Nucleated Red Blood Cells # 0.0 Sodium Level 134 L Potassium Level 4.4 Chloride Level 97 Carbon Dioxide Level 28 Anion Gap 13 Blood Urea Nitrogen 26 H Creatinine 1.09 Glucose Level 194 Calcium Level 9.0 Total Bilirubin 0.3 Direct Bilirubin 0.00 Indirect Bilirubin 0.3 Aspartate Amino Transf (AST/SGOT) 51 H Alanine Aminotransferase (ALT/SGPT) 35 Alkaline Phosphatase 67 Total Protein 6.0 L Albumin 2.8 L Globulin 3.20 Albumin/Globulin Ratio 0.87 Test 10/18/16 05:08 Bedside Glucose 206 Medications Current Medications Eye Lubricant (Artificial Tears Oph) 1 drop TID BOTH EYES Last administered on 10/17/16 20:18; Admin Dose 1 DROP; Start 10/09/16 at 09:00 Famotidine (Pepcid Iv) 20 mg DAILY IV Last administered on 10/17/16 09:15; Admin Dose 20 MG; Start 10/09/16 at 09:00 Aspirin 81 mg 81 mg DAILY PO Last administered on 10/17/16 09:15; Admin Dose 81 MG; Start 10/10/16 at 09:00 Propofol (Diprivan) 100 ml @ 0 mls/hr TITRATE IV ; Start 10/10/16 at 01:00 Miscellaneous Information 1 ea NOTE XX ; Start 10/10/16 at 02:00 Glucose (Glutose) 15 gm Q15M PRN PO DECREASED GLUCOSE; Start 10/10/16 at 02:00 Glucose (Glutose) 22.5 gm Q15M PRN PO DECREASED GLUCOSE; Start 10/10/16 at 02: 00 Dextrose (D50w Syringe) 25 ml Q15M PRN IV DECREASED GLUCOSE; Start 10/10/16 at 02:00 Dextrose (D50w Syringe) 50 ml Q15M PRN IV DECREASED GLUCOSE; Start 10/10/16 at 02:00 Glucagon (Glucagen) 1 mg Q15M PRN IM DECREASED GLUCOSE; Start 10/10/16 at 02:00 Glucose (Glutose) 15 gm Q15M PRN BUCCAL DECREASED GLUCOSE; Start 10/10/16 at 02 :00 IV Flush (NS 10 ml) 10 ml PRN PRN IV IV PROTOCOL; Start 10/10/16 at 12:30 Albuterol 4 puff 4 puff Q4 PRN INH for wheezing Last administered on 10/15/16 20:12; Admin Dose 4 PUFF; Start 10/10/16 at 13:30 Potassium Chloride/Sodium Chloride (KCl/1/2 NS) 1,020 ml @ 75 mls/hr [id number] IV Last administered on 10/18/16 03:58; Admin Dose 75 MLS/HR; Start 10/11/16 at 12:00 Metoprolol Tartrate (Lopressor) 25 mg BID PO Last administered on 10/17/16 21: 35; Admin Dose 25 MG; Start 10/12/16 at 21:00 Furosemide (Lasix) 40 mg DAILY IV Last administered on 10/17/16 09:15; Admin Dose 40 MG; Start 10/13/16 at 09:30 Acetaminophen (Tylenol Tab) 650 mg Q6H PRN PO PAIN AND OR ELEVATED TEMP Last administered on 10/17/16 05:14; Admin Dose 650 MG; Start 10/13/16 at 15:00 Insulin Aspart (Novolog Insulin Pen) NOVOLOG *MODERATE* ALGORI... Q4 SC Last administered on 10/18/16 05:10; Admin Dose 4 UNIT; Start 10/13/16 at 21:00 Lorazepam 1 mg 1 mg Q6H PRN IV SEIZURES Last administered on 10/15/16 20:34; Admin Dose 1 MG; Start 10/13/16 at 23:30 Levetiracetam 100 ml @ 400 mls/hr Q12 IVPB Last administered on 10/17/16 20:36 ; Admin Dose 400 MLS/HR; Start 10/14/16 at 21:00 Piperacillin Sod/ Tazobactam Sod (Zosyn 3.375gm/ 100 ml (Pmx)) 100 ml @ 100 mls /hr Q6 IVPB Last administered on 10/18/16 05:11; Admin Dose 100 MLS/HR; Start 10/16/16 at 12:00 Insulin Glargine (Lantus) 15 unit DAILY@20 SC Last administered on 10/17/16 20: 16; Admin Dose 15 UNIT; Start 10/17/16 at 20:00 Lactobacillus Acidophilus 1 each 1 each BID NGT ; Start 10/18/16 at 09:00 Sodium Chloride (NS) 1,000 ml @ 1,000 mls/hr Q1H ONCE IV ; Start 10/18/16 at 09: 30; Stop 10/18/16 at 10:29 Assessment/Plan Chief Complaint/Hosp Course Assessment 1. Cardiopulmonary arrest 2. Probable anoxic brain injury 3. Aspiration pneumonia 4. Hypernatremia now resolved 5. Dysphagia secondary to above 6. Pulmonary edema improved today Plan 1. Continue mechanical ventilation, repeat chest x-ray 2. Continue current antibiotics 3. Continue to feeding 4. EEG and neurology recommendations 5. DVT GI prophylaxis Disposition Appreciate palliative care recommendations, will discuss with family again tomorrow regarding goals of care. Currently given patient's mentation he is not able to come off mechanical ventilation and would require tracheostomy and G- tube placement. Problems: NASH DOUGLASS MD, [facility] October 18, 2016 09:29
[2016-10-18] MEDS ORDERED: SOD CHLORIDE 0.9% 1,000 ML IV ONE (09:30)
[2016-10-18] MEDS: LEVETIRACETAM 500 MG (PMX) 100 ML IVPB SCH ×2 (09:55→21:54)
[2016-10-18] MEDS: ASPIRIN 81 MG TAB PO SCH (09:55)
[2016-10-18] MEDS: FAMOTIDINE 20 MG INJ IV SCH (09:55)
[2016-10-18] MEDS: ARTIFICIAL TEARS 15 ML OPH BOTH EYES SCH ×3 (09:58→21:50)
[2016-10-18] MEDS ORDERED: PHENYLephrine 40 MG in DEXTROSE 5% 496 ML IV SCH (10:00)
--- NOTE | 2016-10-18 13:51 | CONS ---
Date/Time of Note Date/Time of Note DATE: 10/18/16 TIME: 13:49 Assessment/Plan Assessment/Plan Additional Assessment/Plan 1. Positive troponins/non-ST elevation myocardial infarction, likely secondary to the patient's cardiopulmonary arrest, as the patient has had recent left heart catheterization July 2016 revealing no significant obstructive disease.-now troponin trended negative - NO INTERVENTION PLANNED 2. Congestive heart failure, diastolic, acute on chronic, as the patient has undergone a 2D echo during this admission, interpreted by another maintenance electrician as having a preserved EF of 65% with mild aortic stenosis and mild prosthetic mitral valve and moderate tricuspid regurgitation. 3. Abnormal electrocardiogram with diffuse nonspecific ST and T-wave abnormalities, 4. Respiratory failure, status post intubation- CON't RESP RX. 5. Encephalopathy. 6. History of mitral valve replacement with bioprosthesis - Stable by exam. 7. Atrial fibrillation on heparin-rate controlled - NO PAUSES. 8. Hypotension, borderline. 9. Diabetes mellitus. 10. Anemia. 11. Renal failure-improved. 12.seizure episode-focal of leg improved with benzo Consultation Date/Type/Reason Admit Date/Time Oct 10, 2016 at 03:49 Initial Consult Date 10/10/16 Type of Consultation: pulmonary ICU Referring Provider: ALEXANDR MOULTON MD 24 HR Interval Summary Free Text/Dictation NO acute change - pt critically ill. ROS: No fever, no chills, no nausea, no vomiting, no diarrhea/constipation No recent weight changes No chest pain, no PND, no orthopnea No dizziness, blurred vision No thirst, no heat or cold intolerance (per nurse) Exam/Review of Systems Vital Signs Vitals Vital Signs Date Time Temp Pulse Resp B/P Pulse Ox O2 Delivery O2 Flow Rate FiO2 10/18/16 12:30 78 14 96/59 100 Mechanical Ventilator 10/18/16 12:00 98.6 10/18/16 11:00 30 Intake and Output 10/17/16 10/17/16 10/18/16 15:00 23:00 07:00 Intake Total 1397.5 ml 1409.0 ml 1313.0 ml Output Total 2750 ml 1250 ml 925 ml Balance -1352.5 ml 159.0 ml 388.0 ml Exam General: WN/WD/NAD, AOx 3 HEENT: Unicetric/atraumatic/EOMI (does not follow commands) NECK: JVD elevated, no thyromegaly Lymph: no lymphadenopathy HEART: regular with no S3, II/ systolic murmur at apex LUNGS: Coarse sounds ABD: soft, NT, ND, +BS : Intact Neuro: non focal SKIN: chronic changes EXT: trace edema Results Result Diagram: 10/18/16 0330 10/18/16 0330 Results 24 hrs Laboratory Tests Test 10/17/16 17:36 10/17/16 20:14 10/17/16 20:35 10/18/16 00:56 Bedside Glucose 226 H 222 H 190 Activated Partial Thromboplast Time 86.7 *H Test 10/18/16 03:30 10/18/16 05:08 10/18/16 10:17 10/18/16 11:55 White Blood Count 8.7 Red Blood Count 2.76 L Hemoglobin 8.6 L Hematocrit 26.4 L Mean Corpuscular Volume 95.7 Mean Corpuscular Hemoglobin 31.2 Mean Corpuscular Hemoglobin Concent 32.6 Red Cell Distribution Width 17.0 H Platelet Count 181 # Mean Platelet Volume 11.2 H Neutrophils % 82.3 H Lymphocytes % 4.8 L Monocytes % 7.9 Eosinophils % 2.9 Basophils % 0.3 Nucleated Red Blood Cells % 0.0 Neutrophils # 7.2 Lymphocytes # 0.4 L Monocytes # 0.7 Eosinophils # 0.3 Basophils # 0.0 Nucleated Red Blood Cells # 0.0 Activated Partial Thromboplast Time 77.2 *H 33.5 Sodium Level 134 L Potassium Level 4.4 Chloride Level 97 Carbon Dioxide Level 28 Anion Gap 13 Blood Urea Nitrogen 26 H Creatinine 1.09 Glucose Level 194 Calcium Level 9.0 Total Bilirubin 0.3 Direct Bilirubin 0.00 Indirect Bilirubin 0.3 Aspartate Amino Transf (AST/SGOT) 51 H Alanine Aminotransferase (ALT/SGPT) 35 Alkaline Phosphatase 67 Total Protein 6.0 L Albumin 2.8 L Globulin 3.20 Albumin/Globulin Ratio 0.87 Bedside Glucose 206 196 Medications Medications Current Medications Eye Lubricant (Artificial Tears Oph) 1 drop TID BOTH EYES Last administered on 10/18/16 09:58; Admin Dose 1 DROP; Start 10/09/16 at 09:00 Famotidine (Pepcid Iv) 20 mg DAILY IV Last administered on 10/18/16 09:55; Admin Dose 20 MG; Start 10/09/16 at 09:00 Aspirin 81 mg 81 mg DAILY PO Last administered on 10/18/16 09:55; Admin Dose 81 MG; Start 10/10/16 at 09:00 Propofol (Diprivan) 100 ml @ 0 mls/hr TITRATE IV ; Start 10/10/16 at 01:00 Miscellaneous Information 1 ea NOTE XX ; Start 10/10/16 at 02:00 Glucose (Glutose) 15 gm Q15M PRN PO DECREASED GLUCOSE; Start 10/10/16 at 02:00 Glucose (Glutose) 22.5 gm Q15M PRN PO DECREASED GLUCOSE; Start 10/10/16 at 02: 00 Dextrose (D50w Syringe) 25 ml Q15M PRN IV DECREASED GLUCOSE; Start 10/10/16 at 02:00 Dextrose (D50w Syringe) 50 ml Q15M PRN IV DECREASED GLUCOSE; Start 10/10/16 at 02:00 Glucagon (Glucagen) 1 mg Q15M PRN IM DECREASED GLUCOSE; Start 10/10/16 at 02:00 Glucose (Glutose) 15 gm Q15M PRN BUCCAL DECREASED GLUCOSE; Start 10/10/16 at 02 :00 IV Flush (NS 10 ml) 10 ml PRN PRN IV IV PROTOCOL; Start 10/10/16 at 12:30 Albuterol 4 puff 4 puff Q4 PRN INH for wheezing Last administered on 10/15/16 20:12; Admin Dose 4 PUFF; Start 10/10/16 at 13:30 Potassium Chloride/Sodium Chloride (KCl/1/2 NS) 1,020 ml @ 75 mls/hr [id number] IV Last administered on 10/18/16 03:58; Admin Dose 75 MLS/HR; Start 10/11/16 at 12:00 Metoprolol Tartrate (Lopressor) 25 mg BID PO Last administered on 10/17/16 21: 35; Admin Dose 25 MG; Start 10/12/16 at 21:00 Furosemide (Lasix) 40 mg DAILY IV Last administered on 10/17/16 09:15; Admin Dose 40 MG; Start 10/13/16 at 09:30 Acetaminophen (Tylenol Tab) 650 mg Q6H PRN PO PAIN AND OR ELEVATED TEMP Last administered on 10/17/16 05:14; Admin Dose 650 MG; Start 10/13/16 at 15:00 Insulin Aspart (Novolog Insulin Pen) NOVOLOG *MODERATE* ALGORI... Q4 SC Last administered on 10/18/16 10:20; Admin Dose 4 UNIT; Start 10/13/16 at 21:00 Lorazepam 1 mg 1 mg Q6H PRN IV SEIZURES Last administered on 10/15/16 20:34; Admin Dose 1 MG; Start 10/13/16 at 23:30 Levetiracetam 100 ml @ 400 mls/hr Q12 IVPB Last administered on 10/18/16 09:55 ; Admin Dose 400 MLS/HR; Start 10/14/16 at 21:00 Piperacillin Sod/ Tazobactam Sod (Zosyn 3.375gm/ 100 ml (Pmx)) 100 ml @ 100 mls /hr Q6 IVPB Last administered on 10/18/16 13:42; Admin Dose 100 MLS/HR; Start 10/16/16 at 12:00 Insulin Glargine (Lantus) 15 unit DAILY@20 SC Last administered on 10/17/16 20: 16; Admin Dose 15 UNIT; Start 10/17/16 at 20:00 Lactobacillus Acidophilus 1 each 1 each BID NGT ; Start 10/18/16 at 09:00 Norepinephrine 250 ml @ 0 mls/hr TITRATE IV ; Start 10/18/16 at 10:00 Norepinephrine 16 mg/Dextrose 500 ml @ 1.87 mls/hr TITRATE IV ; Start 10/18/16 at 10:00 Phenylephrine HCl/ Dextrose (Nicholas-Syneph/D5W) 500 ml @ 75 mls/hr TITRATE IV ; Start 10/18/16 at 10:00 BEATA PENA MD October 18, 2016 13:51
[2016-10-18] MEDS: NORepinephrine 8MG/250 ML (PMX 250 ML IV SCH (14:03)
--- NOTE | 2016-10-18 14:38 | PN ---
DATE: 10/18/2016 SUBJECTIVE: The patient remains sedated on mechanical ventilation, off any sedatives. T-max 98.6, blood pressure 103/61. This morning the patient dropped his pressure to 87/54, had been given bolus of NS, started on pressors with improvement of the blood pressure. Heart rate ____ per minute. CHEST: Decreased breath sounds anteriorly. HEART: S1, S2 with no definite gallops. ABDOMEN: Soft, bowel sounds active. Mildly distended. EXTREMITIES: No edema. Evan's sign is negative. I and O: ____, [id number]. LABORATORY: WBC count 8.7, hematocrit 26.4, platelet count 181,000, sodium 134, potassium 4.4, gluc ose 206 and 196 today. Blood cultures negative. IMPRESSION: Palliative consult with Dr. Tapia and his recommend is greatly appreciated. Have ch anged the status to DNR after discussion with family. I have discussed the patient's overall progno sis is just poor, with the patient's daughter. IMPRESSION: 1. Status post cardiopulmonary arrest with anoxic encephalopathy. 2. Acute respiratory failure with aspiration pneumonia. 3. Severe chronic obstructive pulmonary disease. 4. Atrial fibrillation. 5. Diabetes mellitus type 2. 6. Status post mitral and aortic valve replacement with congestive heart failure, acute diastolic o n chronic. 7. ____ evidence of bacteremia. Continue pulmonary support and fluids, pressors as needed. Follow recommendations per Dr. Piedra, Dr. Ramirez and Dr. Randolhp. Overall prognosis is guarded. Dictated By: ALEXANDR MOULTON MD SR/NTS Conf#: [id number] DID#: [id number]
[2016-10-18] MEDS: HEPARIN 1000 UNITS/ML 10 ML INJ IV PRN (14:40)
--- NOTE | 2016-10-18 15:37 | PN ---
DATE: 10/18/2016 PALLIATIVE CARE PROGRESS NOTE The patient remains in the intensive care unit. It is my understanding that family members have com e to an agreement right now to change the code status to DO NOT RESUSCITATE. They are still waiting for other family members coming into town. At that time, they may plan to withdraw care. I will a ssist and write a letter as Dr. So had done also and support family members. Dictated By: JANELL KIM MD, LP/SUDHAKAR Conf#: [id number] DID#: [id number]
--- NOTE | 2016-10-18 21:32 | CONS ---
Date/Time of Note Date/Time of Note DATE: 10/18/16 TIME: 21:28 Consult Date/Type/Reason Admit Date/Time Oct 10, 2016 at 03:49 Initial Consult Date 10/15/16 Type of Consultation: neurology Ordering Provider: ALEXANDR MOULTON MD Subjective no acute events Objective Vital Signs Date Time Temp Pulse Resp B/P Pulse Ox O2 Delivery O2 Flow Rate FiO2 10/18/16 19:45 77 23 107/69 99 Mechanical Ventilator 10/18/16 17:00 30 10/18/16 16:00 98.7 Intake and Output 10/17/16 10/17/16 10/18/16 15:00 23:00 07:00 Intake Total 1397.5 ml 1409.0 ml 1313.0 ml Output Total 2750 ml 1250 ml 925 ml Balance -1352.5 ml 159.0 ml 388.0 ml Exam intubated, eyes closed, opens min to stimulation, does not follow commands, does not track visually, no response to visual threat, pupils reactive 4-3 mm, roving eye movements, present corneals, gag. No withdrawal to pain, flaccid extremities. Results/Medications Result Diagram: 10/18/16 0330 10/18/16 0330 Results 24 hrs Laboratory Tests Test 10/18/16 00:56 10/18/16 03:30 10/18/16 05:08 10/18/16 10:17 Bedside Glucose 190 206 196 White Blood Count 8.7 Red Blood Count 2.76 L Hemoglobin 8.6 L Hematocrit 26.4 L Mean Corpuscular Volume 95.7 Mean Corpuscular Hemoglobin 31.2 Mean Corpuscular Hemoglobin Concent 32.6 Red Cell Distribution Width 17.0 H Platelet Count 181 # Mean Platelet Volume 11.2 H Neutrophils % 82.3 H Lymphocytes % 4.8 L Monocytes % 7.9 Eosinophils % 2.9 Basophils % 0.3 Nucleated Red Blood Cells % 0.0 Neutrophils # 7.2 Lymphocytes # 0.4 L Monocytes # 0.7 Eosinophils # 0.3 Basophils # 0.0 Nucleated Red Blood Cells # 0.0 Activated Partial Thromboplast Time 77.2 *H Sodium Level 134 L Potassium Level 4.4 Chloride Level 97 Carbon Dioxide Level 28 Anion Gap 13 Blood Urea Nitrogen 26 H Creatinine 1.09 Glucose Level 194 Calcium Level 9.0 Total Bilirubin 0.3 Direct Bilirubin 0.00 Indirect Bilirubin 0.3 Aspartate Amino Transf (AST/SGOT) 51 H Alanine Aminotransferase (ALT/SGPT) 35 Alkaline Phosphatase 67 Total Protein 6.0 L Albumin 2.8 L Globulin 3.20 Albumin/Globulin Ratio 0.87 Test 10/18/16 11:55 10/18/16 13:49 10/18/16 17:15 Activated Partial Thromboplast Time 33.5 Bedside Glucose 223 H 228 H Medications Current Medications Eye Lubricant (Artificial Tears Oph) 1 drop TID BOTH EYES Last administered on 10/18/16 13:47; Admin Dose 1 DROP; Start 10/09/16 at 09:00 Famotidine (Pepcid Iv) 20 mg DAILY IV Last administered on 10/18/16 09:55; Admin Dose 20 MG; Start 10/09/16 at 09:00 Aspirin 81 mg 81 mg DAILY PO Last administered on 10/18/16 09:55; Admin Dose 81 MG; Start 10/10/16 at 09:00 Propofol (Diprivan) 100 ml @ 0 mls/hr TITRATE IV ; Start 10/10/16 at 01:00 Miscellaneous Information 1 ea NOTE XX ; Start 10/10/16 at 02:00 Glucose (Glutose) 15 gm Q15M PRN PO DECREASED GLUCOSE; Start 10/10/16 at 02:00 Glucose (Glutose) 22.5 gm Q15M PRN PO DECREASED GLUCOSE; Start 10/10/16 at 02: 00 Dextrose (D50w Syringe) 25 ml Q15M PRN IV DECREASED GLUCOSE; Start 10/10/16 at 02:00 Dextrose (D50w Syringe) 50 ml Q15M PRN IV DECREASED GLUCOSE; Start 10/10/16 at 02:00 Glucagon (Glucagen) 1 mg Q15M PRN IM DECREASED GLUCOSE; Start 10/10/16 at 02:00 Glucose (Glutose) 15 gm Q15M PRN BUCCAL DECREASED GLUCOSE; Start 10/10/16 at 02 :00 IV Flush (NS 10 ml) 10 ml PRN PRN IV IV PROTOCOL; Start 10/10/16 at 12:30 Albuterol 4 puff 4 puff Q4 PRN INH for wheezing Last administered on 10/15/16 20:12; Admin Dose 4 PUFF; Start 10/10/16 at 13:30 Potassium Chloride/Sodium Chloride (KCl/1/2 NS) 1,020 ml @ 75 mls/hr [id number] IV Last administered on 10/18/16 15:25; Admin Dose 75 MLS/HR; Start 10/11/16 at 12:00 Metoprolol Tartrate (Lopressor) 25 mg BID PO Last administered on 10/17/16 21: 35; Admin Dose 25 MG; Start 10/12/16 at 21:00 Furosemide (Lasix) 40 mg DAILY IV Last administered on 10/17/16 09:15; Admin Dose 40 MG; Start 10/13/16 at 09:30 Acetaminophen (Tylenol Tab) 650 mg Q6H PRN PO PAIN AND OR ELEVATED TEMP Last administered on 10/17/16 05:14; Admin Dose 650 MG; Start 10/13/16 at 15:00 Insulin Aspart (Novolog Insulin Pen) NOVOLOG *MODERATE* ALGORI... Q4 SC Last administered on 10/18/16 17:18; Admin Dose 6 UNIT; Start 10/13/16 at 21:00 Lorazepam 1 mg 1 mg Q6H PRN IV SEIZURES Last administered on 10/15/16 20:34; Admin Dose 1 MG; Start 10/13/16 at 23:30 Levetiracetam 100 ml @ 400 mls/hr Q12 IVPB Last administered on 10/18/16 09:55 ; Admin Dose 400 MLS/HR; Start 10/14/16 at 21:00 Piperacillin Sod/ Tazobactam Sod (Zosyn 3.375gm/ 100 ml (Pmx)) 100 ml @ 100 mls /hr Q6 IVPB Last administered on 10/18/16 18:06; Admin Dose 100 MLS/HR; Start 10/16/16 at 12:00 Insulin Glargine (Lantus) 15 unit DAILY@20 SC Last administered on 10/17/16 20: 16; Admin Dose 15 UNIT; Start 10/17/16 at 20:00 Lactobacillus Acidophilus 1 each 1 each BID NGT ; Start 10/18/16 at 09:00 Norepinephrine 16 mg/Dextrose 500 ml @ 1.87 mls/hr TITRATE IV ; Start 10/18/16 at 10:00 Phenylephrine HCl/ Dextrose (Nicholas-Syneph/D5W) 500 ml @ 75 mls/hr TITRATE IV ; Start 10/18/16 at 10:00 Assessment/Plan Chief Complaint/Hosp Course Anoxic encephalopathy.Postanoxic seizures. Continue keppra. Poor prognosis of functional recovery. Problems: ARPIT BARKER MD October 18, 2016 21:32
[2016-10-18] MEDS: INSULIN GLARGINE [LANtus] 3 ML PEN SC SCH (21:47)
[2016-10-19] VITALS (99 sets, daily range): BP systolic 72–136; BP diastolic 48–79; PULSE 58–88; RESP 12–26
[2016-10-19] MEDS: PIPER-TAZO 3.375 GM IV (PMX) 100 ML IVPB SCH ×4 (00:29→17:29)
[2016-10-19] MEDS: INSULIN ASPART [NOVOLOG] 3 ML PEN SC SCH ×6 (00:35→20:33)
[2016-10-19] MEDS: HEPARIN 25000 UNITS/250 ML 250 ML IV SCH (03:25)
[2016-10-19 04:42] LABS: ADD SCAN DIFF NO
[2016-10-19 04:51] LABS: BASOPHILS % 0.3 % (0.0-2.0); EOSINOPHILS # 0.4 10^3/ul (0.0-0.5); EOSINOPHILS % 3.7 % (0.0-7.0); HEMATOCRIT 27.1 % (42.0-52.0); HEMOGLOBIN 8.6 g/dl (14.0-18.0); LYMPHOCYTES # 0.7 10^3/ul (0.8-2.9); LYMPHOCYTES % 6.7 % (15.0-51.0); MEAN CORPUSCULAR HEMOGLOBIN 30.7 pg (29.0-33.0); MEAN CORPUSCULAR HGB CONC 31.7 g/dl (32.0-37.0); MEAN CORPUSCULAR VOLUME 96.8 fl (82.0-101.0); MEAN PLATELET VOLUME 11.5 fl (7.4-10.4); MONOCYTE # 0.7 10^3/ul (0.3-0.9); MONOCYTES % 6.8 % (0.0-11.0); NEUTROPHIL # 8.1 10^3/ul (1.6-7.5); NEUTROPHILS % 78.3 % (39.0-77.0); PLATELET COUNT 253 10^3/UL (140-415); RED CELL DISTRIBUTION WIDTH 16.9 % (11.5-14.5); WHITE BLOOD COUNT 10.4 10^3/ul (4.8-10.8)
[2016-10-19 05:13] LABS: ALBUMIN 2.8 g/dl (3.3-4.9); POTASSIUM 4.5 mmol/L (3.5-5.1)
[2016-10-19 05:15] LABS: ALBUMIN/GLOBULIN RATIO 0.82; BILIRUBIN,INDIRECT 0.3 mg/dl (0-1.1); BILIRUBIN,TOTAL 0.3 mg/dl (0.2-1.3); CREATININE 1.09 mg/dl (0.61-1.24); TOTAL PROTEIN 6.2 g/dl (6.1-8.1)
[2016-10-19 05:16] LABS: CALCIUM 9.1 mg/dl (8.4-10.2)
[2016-10-19] MEDS: POTASSIUM CHLORIDE 40 MEQ in SOD CHLORIDE 0.45% 1,000 ML IV SCH ×2 (05:21→18:48)
[2016-10-19] MEDS: NORepinephrine 8MG/250 ML (PMX 250 ML IV SCH (07:34)
--- NOTE | 2016-10-19 08:29 | CONS ---
Date/Time of Note Date/Time of Note DATE: 10/19/16 TIME: 08:27 Assessment/Plan Assessment/Plan Chief Complaint/Hosp Course 1) Acute AL with likely anoxic brain injury MRI done and no acute bleeds but likely signs of anoxic injury prognosis is poor 10/16 - no response to stimuli, remains intubated 10/17 - no change 10/18 - no change, prognosis grim 2) development of L side infiltrate/effusion procalcitonin is pending Klebsiella is growing in sputum cx is very sensitive no MRSA continue with zosyn and d/c vanco get chest u/s to see if there is much fluid on L side or if mostly infiltrate 10/16 - chest u/s does not show any fluid, so this is all atelectasis/infiltrate continue with zosyn 10/17 - fevers are improved with normal WBC procalcitonin was minimally elevated on 10/12 will repeat continue with zosyn at present 10/18 - stable 10/19 - continue with zosyn thru 10/21 3) CoNS in blood cx only one set and this likely represents contamination d/c vanco and repeat blood cx tomorrow 10/16 - repeat blood cx were done yesterday, will not repeat today continue off vanco 10/17 - repeat blood cx remain NGTD 4) ARF improving with hydration 5) DM 6) seizures none overnight or today so far 7) diarrhea 10/18 - stool for c.dif and start probiotics 10/19 - c.dif was negative Problems: Consultation Date/Type/Reason Admit Date/Time Oct 10, 2016 at 03:49 Initial Consult Date 10/15/16 Type of Consultation: ID Referring Provider: ALEXANDR MOULTON MD 24 HR Interval Summary Free Text/Dictation no change no response Subjective hx not possible: pt non-verbal Exam/Review of Systems Vital Signs Vitals Vital Signs Date Time Temp Pulse Resp B/P Pulse Ox O2 Delivery O2 Flow Rate FiO2 10/19/16 06:45 81 14 111/71 100 10/19/16 06:00 Mechanical Ventilator 10/19/16 06:00 30 10/19/16 04:00 98.5 Intake and Output 10/18/16 10/18/16 10/19/16 14:59 22:59 06:59 Intake Total 2428.0 ml 1291.000 ml 1268.188 ml Output Total 1550 ml 1500 ml 1450 ml Balance 878.0 ml -209.000 ml -181.812 ml Exam no response Constitutional: non-verbal Head: normocephalic Eyes: nl sclera Respiratory: diminished breath sounds Cardiovascular: regular rate and rhythm Gastrointestinal: non-tender, soft Extremities: other (no edema) Results Result Diagram: 10/19/16 0400 10/19/16 0400 Results 24 hrs Laboratory Tests Test 10/18/16 10:17 10/18/16 11:55 10/18/16 13:49 10/18/16 17:15 Bedside Glucose 196 223 H 228 H Activated Partial Thromboplast Time 33.5 Test 10/18/16 20:40 10/18/16 21:45 10/19/16 00:01 10/19/16 00:31 Activated Partial Thromboplast Time > 180.0 *H 41.5 H Bedside Glucose 235 H 177 Test 10/19/16 04:00 10/19/16 05:00 10/19/16 05:07 White Blood Count 10.4 Red Blood Count 2.80 L Hemoglobin 8.6 L Hematocrit 27.1 L Mean Corpuscular Volume 96.8 Mean Corpuscular Hemoglobin 30.7 Mean Corpuscular Hemoglobin Concent 31.7 L Red Cell Distribution Width 16.9 H Platelet Count 253 # Mean Platelet Volume 11.5 H Neutrophils % 78.3 H Lymphocytes % 6.7 L Monocytes % 6.8 Eosinophils % 3.7 Basophils % 0.3 Nucleated Red Blood Cells % 0.0 Neutrophils # 8.1 H Lymphocytes # 0.7 L Monocytes # 0.7 Eosinophils # 0.4 Basophils # 0.0 Nucleated Red Blood Cells # 0.0 Sodium Level 135 Potassium Level 4.5 Chloride Level 102 Carbon Dioxide Level 26 Anion Gap 12 Blood Urea Nitrogen 21 H Creatinine 1.09 Glucose Level 228 H Calcium Level 9.1 Total Bilirubin 0.3 Direct Bilirubin 0.00 Indirect Bilirubin 0.3 Aspartate Amino Transf (AST/SGOT) 47 H Alanine Aminotransferase (ALT/SGPT) 40 Alkaline Phosphatase 73 Total Protein 6.2 Albumin 2.8 L Globulin 3.40 H Albumin/Globulin Ratio 0.82 Activated Partial Thromboplast Time 54.4 H Bedside Glucose 236 H Medications Medications Current Medications Eye Lubricant (Artificial Tears Oph) 1 drop TID BOTH EYES Last administered on 10/18/16 21:50; Admin Dose 1 DROP; Start 10/09/16 at 09:00 Famotidine (Pepcid Iv) 20 mg DAILY IV Last administered on 10/18/16 09:55; Admin Dose 20 MG; Start 10/09/16 at 09:00 Aspirin 81 mg 81 mg DAILY PO Last administered on 10/18/16 09:55; Admin Dose 81 MG; Start 10/10/16 at 09:00 Propofol (Diprivan) 100 ml @ 0 mls/hr TITRATE IV ; Start 10/10/16 at 01:00 Miscellaneous Information 1 ea NOTE XX ; Start 10/10/16 at 02:00 Glucose (Glutose) 15 gm Q15M PRN PO DECREASED GLUCOSE; Start 10/10/16 at 02:00 Glucose (Glutose) 22.5 gm Q15M PRN PO DECREASED GLUCOSE; Start 10/10/16 at 02: 00 Dextrose (D50w Syringe) 25 ml Q15M PRN IV DECREASED GLUCOSE; Start 10/10/16 at 02:00 Dextrose (D50w Syringe) 50 ml Q15M PRN IV DECREASED GLUCOSE; Start 10/10/16 at 02:00 Glucagon (Glucagen) 1 mg Q15M PRN IM DECREASED GLUCOSE; Start 10/10/16 at 02:00 Glucose (Glutose) 15 gm Q15M PRN BUCCAL DECREASED GLUCOSE; Start 10/10/16 at 02 :00 IV Flush (NS 10 ml) 10 ml PRN PRN IV IV PROTOCOL; Start 10/10/16 at 12:30 Albuterol 4 puff 4 puff Q4 PRN INH for wheezing Last administered on 10/15/16 20:12; Admin Dose 4 PUFF; Start 10/10/16 at 13:30 Potassium Chloride/Sodium Chloride (KCl/1/2 NS) 1,020 ml @ 75 mls/hr [id number] IV Last administered on 10/19/16 05:21; Admin Dose 75 MLS/HR; Start 10/11/16 at 12:00 Metoprolol Tartrate (Lopressor) 25 mg BID PO Last administered on 10/17/16 21: 35; Admin Dose 25 MG; Start 10/12/16 at 21:00 Furosemide (Lasix) 40 mg DAILY IV Last administered on 10/17/16 09:15; Admin Dose 40 MG; Start 10/13/16 at 09:30 Acetaminophen (Tylenol Tab) 650 mg Q6H PRN PO PAIN AND OR ELEVATED TEMP Last administered on 10/17/16 05:14; Admin Dose 650 MG; Start 10/13/16 at 15:00 Insulin Aspart (Novolog Insulin Pen) NOVOLOG *MODERATE* ALGORI... Q4 SC Last administered on 10/19/16 05:09; Admin Dose 6 UNIT; Start 10/13/16 at 21:00 Lorazepam 1 mg 1 mg Q6H PRN IV SEIZURES Last administered on 10/15/16 20:34; Admin Dose 1 MG; Start 10/13/16 at 23:30 Levetiracetam 100 ml @ 400 mls/hr Q12 IVPB Last administered on 10/18/16 21:54 ; Admin Dose 400 MLS/HR; Start 10/14/16 at 21:00 Piperacillin Sod/ Tazobactam Sod (Zosyn 3.375gm/ 100 ml (Pmx)) 100 ml @ 100 mls /hr Q6 IVPB Last administered on 10/19/16 05:43; Admin Dose 100 MLS/HR; Start 10/16/16 at 12:00 Insulin Glargine (Lantus) 15 unit DAILY@20 SC Last administered on 10/18/16 21: 47; Admin Dose 15 UNIT; Start 10/17/16 at 20:00 Lactobacillus Acidophilus 1 each 1 each BID NGT Last administered on 10/18/16 21:54; Admin Dose 1 EACH; Start 10/18/16 at 09:00 Norepinephrine 16 mg/Dextrose 500 ml @ 1.87 mls/hr TITRATE IV ; Start 10/18/16 at 10:00 Phenylephrine HCl/ Dextrose (Nicholas-Syneph/D5W) 500 ml @ 75 mls/hr TITRATE IV ; Start 10/18/16 at 10:00 MANISH MULLINS MD October 19, 2016 08:29
[2016-10-19] MEDS: FUROSEMIDE 40 MG INJ IV SCH (08:46)
[2016-10-19] MEDS: LEVETIRACETAM 500 MG (PMX) 100 ML IVPB SCH ×2 (08:53→20:32)
[2016-10-19] MEDS: ASPIRIN 81 MG TAB PO SCH (08:53)
[2016-10-19] MEDS: FAMOTIDINE 20 MG INJ IV SCH (08:53)
[2016-10-19] MEDS: L ACIDOPHIL/B LACTIS/B LONGUM CAPSULE NGT SCH ×2 (08:53→20:31)
[2016-10-19] MEDS: ARTIFICIAL TEARS 15 ML OPH BOTH EYES SCH ×3 (08:54→20:31)
[2016-10-19] MEDS: METOPROLOL 25 MG TAB PO SCH (09:00)
--- NOTE | 2016-10-19 09:18 | CONS ---
Date/Time of Note Date/Time of Note DATE: 10/19/16 TIME: 09:13 Assessment/Plan Assessment/Plan Additional Assessment/Plan Ventilator settings; AC of 14, tidal volume 500, PEEP of 5, 30% FiO2. Patient currently on IV heparin by protocol Levophed at 2 mics per minute. Chest x-ray from today is pending. Assessment recommendations; 1. Patient admitted for cardiac arrest with severe anoxic brain injury. 2. Hypotension, requiring pressor support. 3. Possibly some element of aspiration pneumonia. 4. Myoclonic jerking. 5. Pulmonary edema. Next Continue current supportive care. Add Depakote 5 mg every 8 hours. His family has signed a DNR form which is an appropriate decision. Patient prognosis remains dismal. I did have a detailed discussion the patient's son at bedside and answered all his questions. 35 minutes of critical care time was spent evaluating the patient. Consultation Date/Type/Reason Admit Date/Time Oct 10, 2016 at 03:49 Initial Consult Date 10/15/16 Type of Consultation: Pulmonary/critical care Referring Provider: ALEXANDR MOULTON MD 24 HR Interval Summary Free Text/Dictation Patient condition remains critical. Patient not exhibiting a myoclonic jerking. Still requiring Levophed although at low-dose. General exam; elderly male, orally intubated, unresponsive. Myoclonic jerking seen. Exam/Review of Systems Vital Signs Vitals Vital Signs Date Time Temp Pulse Resp B/P Pulse Ox O2 Delivery O2 Flow Rate FiO2 10/19/16 08:15 72 16 98/63 100 Mechanical Ventilator 10/19/16 08:00 98.9 10/19/16 06:00 30 Intake and Output 10/18/16 10/18/16 10/19/16 15:00 23:00 07:00 Intake Total 2438.875 ml 1271.625 ml 1143.188 ml Output Total 1575 ml 1525 ml 1300 ml Balance 863.875 ml -253.375 ml -156.812 ml Exam HEENT exam is; supple neck, positive JVD. No lymphadenopathy. Midline trachea. No thyromegaly. Patient is a left intraocular lens implant. There is a leftward gaze bilaterally. Chest examination; diminished but clear vessel. S1-S2 audible, no murmurs. Regular rhythm. Abdomen examination; soft, nondistended. Bowel sounds are sluggish. Extremity examination; trace edema. RABBLER examination; patient has myoclonic jerking. Results Result Diagram: 10/19/16 0400 10/19/16 0400 Results 24 hrs Laboratory Tests Test 10/18/16 10:17 10/18/16 11:55 10/18/16 13:49 10/18/16 17:15 Bedside Glucose 196 223 H 228 H Activated Partial Thromboplast Time 33.5 Test 10/18/16 20:40 10/18/16 21:45 10/19/16 00:01 10/19/16 00:31 Activated Partial Thromboplast Time > 180.0 *H 41.5 H Bedside Glucose 235 H 177 Test 10/19/16 04:00 10/19/16 05:00 10/19/16 05:07 10/19/16 08:56 White Blood Count 10.4 Red Blood Count 2.80 L Hemoglobin 8.6 L Hematocrit 27.1 L Mean Corpuscular Volume 96.8 Mean Corpuscular Hemoglobin 30.7 Mean Corpuscular Hemoglobin Concent 31.7 L Red Cell Distribution Width 16.9 H Platelet Count 253 # Mean Platelet Volume 11.5 H Neutrophils % 78.3 H Lymphocytes % 6.7 L Monocytes % 6.8 Eosinophils % 3.7 Basophils % 0.3 Nucleated Red Blood Cells % 0.0 Neutrophils # 8.1 H Lymphocytes # 0.7 L Monocytes # 0.7 Eosinophils # 0.4 Basophils # 0.0 Nucleated Red Blood Cells # 0.0 Sodium Level 135 Potassium Level 4.5 Chloride Level 102 Carbon Dioxide Level 26 Anion Gap 12 Blood Urea Nitrogen 21 H Creatinine 1.09 Glucose Level 228 H Calcium Level 9.1 Total Bilirubin 0.3 Direct Bilirubin 0.00 Indirect Bilirubin 0.3 Aspartate Amino Transf (AST/SGOT) 47 H Alanine Aminotransferase (ALT/SGPT) 40 Alkaline Phosphatase 73 Total Protein 6.2 Albumin 2.8 L Globulin 3.40 H Albumin/Globulin Ratio 0.82 Activated Partial Thromboplast Time 54.4 H Bedside Glucose 236 H 254 H Medications Medications Current Medications Eye Lubricant (Artificial Tears Oph) 1 drop TID BOTH EYES Last administered on 10/19/16 08:54; Admin Dose 1 DROP; Start 10/09/16 at 09:00 Famotidine (Pepcid Iv) 20 mg DAILY IV Last administered on 10/19/16 08:53; Admin Dose 20 MG; Start 10/09/16 at 09:00 Aspirin 81 mg 81 mg DAILY PO Last administered on 10/19/16 08:53; Admin Dose 81 MG; Start 10/10/16 at 09:00 Propofol (Diprivan) 100 ml @ 0 mls/hr TITRATE IV ; Start 10/10/16 at 01:00 Miscellaneous Information 1 ea NOTE XX ; Start 10/10/16 at 02:00 Glucose (Glutose) 15 gm Q15M PRN PO DECREASED GLUCOSE; Start 10/10/16 at 02:00 Glucose (Glutose) 22.5 gm Q15M PRN PO DECREASED GLUCOSE; Start 10/10/16 at 02: 00 Dextrose (D50w Syringe) 25 ml Q15M PRN IV DECREASED GLUCOSE; Start 10/10/16 at 02:00 Dextrose (D50w Syringe) 50 ml Q15M PRN IV DECREASED GLUCOSE; Start 10/10/16 at 02:00 Glucagon (Glucagen) 1 mg Q15M PRN IM DECREASED GLUCOSE; Start 10/10/16 at 02:00 Glucose (Glutose) 15 gm Q15M PRN BUCCAL DECREASED GLUCOSE; Start 10/10/16 at 02 :00 IV Flush (NS 10 ml) 10 ml PRN PRN IV IV PROTOCOL; Start 10/10/16 at 12:30 Albuterol 4 puff 4 puff Q4 PRN INH for wheezing Last administered on 10/15/16 20:12; Admin Dose 4 PUFF; Start 10/10/16 at 13:30 Potassium Chloride/Sodium Chloride (KCl/1/2 NS) 1,020 ml @ 75 mls/hr [id number] IV Last administered on 10/19/16 05:21; Admin Dose 75 MLS/HR; Start 10/11/16 at 12:00 Metoprolol Tartrate (Lopressor) 25 mg BID PO Last administered on 10/17/16 21: 35; Admin Dose 25 MG; Start 10/12/16 at 21:00 Furosemide (Lasix) 40 mg DAILY IV Last administered on 10/17/16 09:15; Admin Dose 40 MG; Start 10/13/16 at 09:30 Acetaminophen (Tylenol Tab) 650 mg Q6H PRN PO PAIN AND OR ELEVATED TEMP Last administered on 10/17/16 05:14; Admin Dose 650 MG; Start 10/13/16 at 15:00 Insulin Aspart (Novolog Insulin Pen) NOVOLOG *MODERATE* ALGORI... Q4 SC Last administered on 10/19/16 09:02; Admin Dose 6 UNIT; Start 10/13/16 at 21:00 Lorazepam 1 mg 1 mg Q6H PRN IV SEIZURES Last administered on 10/15/16 20:34; Admin Dose 1 MG; Start 10/13/16 at 23:30 Levetiracetam 100 ml @ 400 mls/hr Q12 IVPB Last administered on 10/19/16 08:53 ; Admin Dose 400 MLS/HR; Start 10/14/16 at 21:00 Piperacillin Sod/ Tazobactam Sod (Zosyn 3.375gm/ 100 ml (Pmx)) 100 ml @ 100 mls /hr Q6 IVPB Last administered on 10/19/16 05:43; Admin Dose 100 MLS/HR; Start 10/16/16 at 12:00 Insulin Glargine (Lantus) 15 unit DAILY@20 SC Last administered on 10/18/16 21: 47; Admin Dose 15 UNIT; Start 10/17/16 at 20:00 Lactobacillus Acidophilus 1 each 1 each BID NGT Last administered on 10/19/16 08:53; Admin Dose 1 EACH; Start 10/18/16 at 09:00 Norepinephrine 16 mg/Dextrose 500 ml @ 1.87 mls/hr TITRATE IV ; Start 10/18/16 at 10:00 Phenylephrine HCl/ Dextrose (Nicholas-Syneph/D5W) 500 ml @ 75 mls/hr TITRATE IV ; Start 10/18/16 at 10:00 MARIE LYNCH October 19, 2016 09:18
--- NOTE | 2016-10-19 12:03 | PN ---
DATE: SUBJECTIVE: Patient remains intubated, sedated, opens eyes, not purposeful. Does not respond to brenda bal commands. OBJECTIVE: VITAL SIGNS: Blood pressure 93/59, respiratory 20 per minute, O2 sats 100%. HEENT: Head normocephalic. Tongue is coated. CHEST: Few wheezes anteriorly. HEART: S1, S2 heard with no definite gallops. ABDOMEN: Soft, nontender, no hepatosplenomegaly. EXTREMITIES: No edema. Extremities warm. I AND 0: 4987 intake, output is 4500. LABORATORY DATA: Lab studies pending. Blood glucose levels 228, 236 and 254. IMPRESSION: 1. Status post cardiopulmonary arrest with anoxic encephalopathy. 2. Acute respiratory failure, aspiration pneumonia. 3. Severe chronic obstructive pulmonary disease. 4. Atrial fibrillation. 5. Diabetes mellitus type 2. 6. Status post mitral and aortic valve replacement. Patient's overall prognosis is guarded. Contacted [place] consulate in [facility] in an attempt to get t he passport of one of his daughters expedited. PLAN: Will continue pulmonary support. Will need to discuss with the family regarding tracheostomy. Dictated By: ALEXANDR MOULTON MD SR/NTS Conf#: [id number] DID#: [id number]
[2016-10-19] MEDS: DIVALPROEX (EC) 500 MG TAB PO SCH ×2 (12:46→20:32)
--- NOTE | 2016-10-19 16:47 | CONS ---
Date/Time of Note Date/Time of Note DATE: 10/19/16 TIME: 16:43 Assessment/Plan Assessment/Plan Chief Complaint/Hosp Course IMPRESSION: 1. Positive troponins/non-ST elevation myocardial infarction, likely secondary to the patient's cardiopulmonary arrest, as the patient has had recent left heart catheterization July 2016 revealing no significant obstructive disease.-now troponin trended negative 2. 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 3. Abnormal electrocardiogram with diffuse nonspecific ST and T-wave abnormalities, 4. Respiratory failure, status post intubation. 5. Encephalopathy. 6. History of mitral valve replacement with bioprosthesis. 7. Atrial fibrillation on heparin-rate controlled 8. Hypotension, borderline. 9. Diabetes mellitus. 10. Anemia. 11. Renal failure-improved. 12.seizure episode-focal of leg improved with benzo Recc: -Tele -Continue asa -Hold BB as patient now back on pressors -Continue daily lasix diuresis as tolerated -Follow MS closely -Continue heparin -wean vent as possible -Family conference pending to discuss goals of care Problems: Consultation Date/Type/Reason Admit Date/Time Oct 10, 2016 at 03:49 Initial Consult Date 10/10/16 Type of Consultation: Cardiology Reason for Consultation cardiac arrest Referring Provider: ALEXANDR MOULTON MD Exam/Review of Systems Vital Signs Vitals Vital Signs Date Time Temp Pulse Resp B/P Pulse Ox O2 Delivery O2 Flow Rate FiO2 10/19/16 16:00 98.5 83 16 119/65 100 Mechanical Ventilator 10/19/16 11:30 30 Intake and Output 10/18/16 10/18/16 10/19/16 15:00 23:00 07:00 Intake Total 2438.875 ml 1271.625 ml 1278.188 ml Output Total 1575 ml 1525 ml 1365 ml Balance 863.875 ml -253.375 ml -86.812 ml Exam Review of Systems: CONSTITUTIONAL: No fevers, chills. PULMONARY: No sob CARDIOVASCULAR: No chest pain/palpitations GASTROINTESTINAL: No nausea/vomiting. GENITOURINARY: No hematuria/dysuria. MUSCULOSKELETAL: No myagias/arthalgias. PSYCHIATRIC: The patient denies depression. NEUROLOGIC: encephalopathic Constitutional: other (encepghaloapthic) Psych: no complaints Head: normocephalic ENMT: mucosa pink and moist Neck: jvd (9 cm water), supple Respiratory: diminished breath sounds Cardiovascular: regular rate and rhythm Gastrointestinal: non-tender, soft Musculoskeletal: muscle tone (normal) Extremities: other (No focal deficits) 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: other (No focal deficits) Results Result Diagram: 10/19/160 10/19/16 0400 Results 24 hrs Laboratory Tests Test 10/18/16 17:15 10/18/16 20:40 10/18/16 21:45 10/19/16 00:01 Bedside Glucose 228 H 235 H Activated Partial Thromboplast Time > 180.0 *H 41.5 H Test 10/19/16 00:31 10/19/16 04:00 10/19/16 05:00 10/19/16 05:07 Bedside Glucose 177 236 H White Blood Count 10.4 Red Blood Count 2.80 L Hemoglobin 8.6 L Hematocrit 27.1 L Mean Corpuscular Volume 96.8 Mean Corpuscular Hemoglobin 30.7 Mean Corpuscular Hemoglobin Concent 31.7 L Red Cell Distribution Width 16.9 H Platelet Count 253 # Mean Platelet Volume 11.5 H Neutrophils % 78.3 H Lymphocytes % 6.7 L Monocytes % 6.8 Eosinophils % 3.7 Basophils % 0.3 Nucleated Red Blood Cells % 0.0 Neutrophils # 8.1 H Lymphocytes # 0.7 L Monocytes # 0.7 Eosinophils # 0.4 Basophils # 0.0 Nucleated Red Blood Cells # 0.0 Sodium Level 135 Potassium Level 4.5 Chloride Level 102 Carbon Dioxide Level 26 Anion Gap 12 Blood Urea Nitrogen 21 H Creatinine 1.09 Glucose Level 228 H Calcium Level 9.1 Total Bilirubin 0.3 Direct Bilirubin 0.00 Indirect Bilirubin 0.3 Aspartate Amino Transf (AST/SGOT) 47 H Alanine Aminotransferase (ALT/SGPT) 40 Alkaline Phosphatase 73 Total Protein 6.2 Albumin 2.8 L Globulin 3.40 H Albumin/Globulin Ratio 0.82 Activated Partial Thromboplast Time 54.4 H Test 10/19/16 08:56 10/19/16 12:05 10/19/16 12:55 Bedside Glucose 254 H 251 H Activated Partial Thromboplast Time 70.3 *H Medications Medications Current Medications Eye Lubricant (Artificial Tears Oph) 1 drop TID BOTH EYES Last administered on 10/19/16 12:47; Admin Dose 1 DROP; Start 10/09/16 at 09:00 Famotidine (Pepcid Iv) 20 mg DAILY IV Last administered on 10/19/16 08:53; Admin Dose 20 MG; Start 10/09/16 at 09:00 Aspirin 81 mg 81 mg DAILY PO Last administered on 10/19/16 08:53; Admin Dose 81 MG; Start 10/10/16 at 09:00 Propofol (Diprivan) 100 ml @ 0 mls/hr TITRATE IV ; Start 10/10/16 at 01:00 Miscellaneous Information 1 ea NOTE XX ; Start 10/10/16 at 02:00 Glucose (Glutose) 15 gm Q15M PRN PO DECREASED GLUCOSE; Start 10/10/16 at 02:00 Glucose (Glutose) 22.5 gm Q15M PRN PO DECREASED GLUCOSE; Start 10/10/16 at 02: 00 Dextrose (D50w Syringe) 25 ml Q15M PRN IV DECREASED GLUCOSE; Start 10/10/16 at 02:00 Dextrose (D50w Syringe) 50 ml Q15M PRN IV DECREASED GLUCOSE; Start 10/10/16 at 02:00 Glucagon (Glucagen) 1 mg Q15M PRN IM DECREASED GLUCOSE; Start 10/10/16 at 02:00 Glucose (Glutose) 15 gm Q15M PRN BUCCAL DECREASED GLUCOSE; Start 10/10/16 at 02 :00 IV Flush (NS 10 ml) 10 ml PRN PRN IV IV PROTOCOL; Start 10/10/16 at 12:30 Albuterol 4 puff 4 puff Q4 PRN INH for wheezing Last administered on 10/15/16 20:12; Admin Dose 4 PUFF; Start 10/10/16 at 13:30 Potassium Chloride/Sodium Chloride (KCl/1/2 NS) 1,020 ml @ 75 mls/hr [id number] IV Last administered on 10/19/16 05:21; Admin Dose 75 MLS/HR; Start 10/11/16 at 12:00 Metoprolol Tartrate (Lopressor) 25 mg BID PO Last administered on 10/17/16 21: 35; Admin Dose 25 MG; Start 10/12/16 at 21:00 Furosemide (Lasix) 40 mg DAILY IV Last administered on 10/17/16 09:15; Admin Dose 40 MG; Start 10/13/16 at 09:30 Acetaminophen (Tylenol Tab) 650 mg Q6H PRN PO PAIN AND OR ELEVATED TEMP Last administered on 10/17/16 05:14; Admin Dose 650 MG; Start 10/13/16 at 15:00 Insulin Aspart (Novolog Insulin Pen) NOVOLOG *MODERATE* ALGORI... Q4 SC Last administered on 10/19/16 12:58; Admin Dose 6 UNIT; Start 10/13/16 at 21:00 Lorazepam 1 mg 1 mg Q6H PRN IV SEIZURES Last administered on 10/15/16 20:34; Admin Dose 1 MG; Start 10/13/16 at 23:30 Levetiracetam 100 ml @ 400 mls/hr Q12 IVPB Last administered on 10/19/16 08:53 ; Admin Dose 400 MLS/HR; Start 10/14/16 at 21:00 Piperacillin Sod/ Tazobactam Sod (Zosyn 3.375gm/ 100 ml (Pmx)) 100 ml @ 100 mls /hr Q6 IVPB Last administered on 10/19/16 12:46; Admin Dose 100 MLS/HR; Start 10/16/16 at 12:00 Lactobacillus Acidophilus 1 each 1 each BID NGT Last administered on 10/19/16 08:53; Admin Dose 1 EACH; Start 10/18/16 at 09:00 Norepinephrine 16 mg/Dextrose 500 ml @ 1.87 mls/hr TITRATE IV ; Start 10/18/16 at 10:00 Phenylephrine HCl/ Dextrose (Nicholas-Syneph/D5W) 500 ml @ 75 mls/hr TITRATE IV ; Start 10/18/16 at 10:00 Divalproex Sodium (Depakote) 500 mg TID PO Last administered on 10/19/16 12:46 ; Admin Dose 500 MG; Start 10/19/16 at 13:00 Insulin Glargine (Lantus) 20 unit DAILY@20 SC ; Start 10/19/16 at 20:00 ESTEFANI BORREGO October 19, 2016 16:47
[2016-10-19] MEDS: INSULIN GLARGINE [LANtus] 3 ML PEN SC SCH (20:36)
[2016-10-20] VITALS (87 sets, daily range): BP systolic 78–134; BP diastolic 51–88; PULSE 72–105; RESP 11–23
[2016-10-20] MEDS: INSULIN ASPART [NOVOLOG] 3 ML PEN SC SCH ×6 (00:31→20:23)
[2016-10-20] MEDS: PIPER-TAZO 3.375 GM IV (PMX) 100 ML IVPB SCH ×4 (00:32→17:54)
[2016-10-20] MEDS: HEPARIN 25000 UNITS/250 ML 250 ML IV SCH ×4 (04:20→22:57)
[2016-10-20 06:13] LABS: ADD SCAN DIFF NO
[2016-10-20 06:24] LABS: BASOPHIL # 0.1 10^3/ul (0.0-0.1); BASOPHILS % 0.7 % (0.0-2.0); EOSINOPHILS # 0.4 10^3/ul (0.0-0.5); EOSINOPHILS % 3.2 % (0.0-7.0); HEMATOCRIT 29.4 % (42.0-52.0); HEMOGLOBIN 9.4 g/dl (14.0-18.0); LYMPHOCYTES # 0.7 10^3/ul (0.8-2.9); LYMPHOCYTES % 5.5 % (15.0-51.0); MONOCYTE # 0.8 10^3/ul (0.3-0.9); MONOCYTES % 6.2 % (0.0-11.0); NEUTROPHIL # 10.2 10^3/ul (1.6-7.5); NEUTROPHILS % 80.3 % (39.0-77.0); PLATELET COUNT 302 10^3/UL (140-415); RED BLOOD COUNT 3.03 10^6/ul (4.70-6.10); WHITE BLOOD COUNT 12.7 10^3/ul (4.8-10.8)
[2016-10-20 06:56] LABS: POTASSIUM 4.8 mmol/L (3.5-5.1)
[2016-10-20 06:58] LABS: CREATININE 1.01 mg/dl (0.61-1.24)
[2016-10-20 06:59] LABS: CALCIUM 9.3 mg/dl (8.4-10.2)
[2016-10-20] MEDS: POTASSIUM CHLORIDE 40 MEQ in SOD CHLORIDE 0.45% 1,000 ML IV SCH (07:46)
[2016-10-20] MEDS: ARTIFICIAL TEARS 15 ML OPH BOTH EYES SCH ×3 (09:42→20:20)
[2016-10-20] MEDS: ASPIRIN 81 MG TAB PO SCH (09:42)
[2016-10-20] MEDS: L ACIDOPHIL/B LACTIS/B LONGUM CAPSULE NGT SCH ×2 (09:42→20:08)
[2016-10-20] MEDS: DIVALPROEX (EC) 500 MG TAB PO SCH ×3 (09:42→20:08)
[2016-10-20] MEDS: FAMOTIDINE 20 MG INJ IV SCH (09:42)
[2016-10-20] MEDS: FUROSEMIDE 40 MG INJ IV SCH (09:42)
[2016-10-20] MEDS: LEVETIRACETAM 500 MG (PMX) 100 ML IVPB SCH ×2 (09:42→20:08)
--- NOTE | 2016-10-20 10:03 | CONS ---
Date/Time of Note Date/Time of Note DATE: 10/20/16 TIME: 09:58 Assessment/Plan Assessment/Plan Additional Assessment/Plan Ventilator settings; AC of 14, tidal volume 500, PEEP of 5, 30% FiO2. Patient currently on Levophed at 6 mics per minute. On IV heparin via protocol. Assessment recommendations; 1. 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 2. CHF with pulmonary edema. 3. Mild leukocytosis. Difficult to rule out some element of aspiration pneumonia. 4. Myoclonic jerking and seizure activity , currently suppressed on Depakote and Keppra. 5. Persistent hypotension. Continue current supportive care. Will obtain a chest x-ray. If there are no acute infiltrates identified then I would recommend stopping antibiotics. I did have a detailed discussion with the patient's daughter at bedside, the daughter is aware of her father's grave condition. The family will decide about possible terminal extubation within the next 24-48 hours. Prognosis remains dismal. 35 minutes critical care time was spent in admitting the patient. Consultation Date/Type/Reason Admit Date/Time Oct 10, 2016 at 03:49 Initial Consult Date 10/15/16 Type of Consultation: Pulmonary/critical care Referring Provider: ALEXANDR MOULTON MD 24 HR Interval Summary Free Text/Dictation Patient condition remains critical. Remains completely unresponsive. Remains hypotensive requiring continued pressor support. No overt myoclonic jerking or seizure activity noted. General exam; elderly male, orally intubated, unresponsive. Currently in no distress. Exam/Review of Systems Vital Signs Vitals Vital Signs Date Time Temp Pulse Resp B/P Pulse Ox O2 Delivery O2 Flow Rate FiO2 10/20/16 09:10 80 14 100 30 10/20/16 06:00 111/73 10/20/16 05:45 Mechanical Ventilator 10/20/16 04:00 98.8 Intake and Output 10/19/16 10/19/16 10/20/16 15:00 23:00 07:00 Intake Total 1528.49 ml 753.5 ml 1458 ml Output Total 860 ml 1365 ml 1570 ml Balance 668.49 ml -611.5 ml -112 ml Exam HEENT exam is; supple neck, positive JVD. No lymphadenopathy. Midline trachea. No thyromegaly. No neck masses. Patient upper jaw is edentulous. Pupils are small bilaterally. There is a leftward gaze. Neck Chest examination a micro diminished breath on lung bases bilaterally. Upper lobes are clear. S1-S2 audible is mechanical S2. There is a well-healed sternal scar. Abdomen examination; soft, nondistended. No organomegaly. Bowel sounds audible. Extremity examination; no peripheral edema. FLY TIER examination; patient remains unresponsive. Results Result Diagram: 10/20/16 0537 10/20/16 0537 Results 24 hrs Laboratory Tests Test 10/19/16 12:05 10/19/16 12:55 10/19/16 17:22 10/19/16 19:20 Activated Partial Thromboplast Time 70.3 *H 71.1 *H Bedside Glucose 251 H 244 H Test 10/19/16 20:30 10/20/16 00:28 10/20/16 05:33 10/20/16 05:37 Bedside Glucose 224 H 188 196 White Blood Count 12.7 #H Red Blood Count 3.03 L Hemoglobin 9.4 L Hematocrit 29.4 L Mean Corpuscular Volume 97.0 Mean Corpuscular Hemoglobin 31.0 Mean Corpuscular Hemoglobin Concent 32.0 Red Cell Distribution Width 17.0 H Platelet Count 302 Mean Platelet Volume 11.0 H Neutrophils % 80.3 H Lymphocytes % 5.5 L Monocytes % 6.2 Eosinophils % 3.2 Basophils % 0.7 Nucleated Red Blood Cells % 0.0 Neutrophils # 10.2 H Lymphocytes # 0.7 L Monocytes # 0.8 Eosinophils # 0.4 Basophils # 0.1 Nucleated Red Blood Cells # 0.0 Activated Partial Thromboplast Time 52.2 H Sodium Level 136 Potassium Level 4.8 Chloride Level 102 Carbon Dioxide Level 25 Anion Gap 14 Blood Urea Nitrogen 18 Creatinine 1.01 Glucose Level 207 Calcium Level 9.3 Test 10/20/16 09:40 Bedside Glucose 237 H Medications Medications Current Medications Eye Lubricant (Artificial Tears Oph) 1 drop TID BOTH EYES Last administered on 10/20/16 09:42; Admin Dose 1 DROP; Start 10/09/16 at 09:00 Famotidine (Pepcid Iv) 20 mg DAILY IV Last administered on 10/20/16 09:42; Admin Dose 20 MG; Start 10/09/16 at 09:00 Aspirin 81 mg 81 mg DAILY PO Last administered on 10/20/16 09:42; Admin Dose 81 MG; Start 10/10/16 at 09:00 Propofol (Diprivan) 100 ml @ 0 mls/hr TITRATE IV ; Start 10/10/16 at 01:00 Miscellaneous Information 1 ea NOTE XX ; Start 10/10/16 at 02:00 Glucose (Glutose) 15 gm Q15M PRN PO DECREASED GLUCOSE; Start 10/10/16 at 02:00 Glucose (Glutose) 22.5 gm Q15M PRN PO DECREASED GLUCOSE; Start 10/10/16 at 02: 00 Dextrose (D50w Syringe) 25 ml Q15M PRN IV DECREASED GLUCOSE; Start 10/10/16 at 02:00 Dextrose (D50w Syringe) 50 ml Q15M PRN IV DECREASED GLUCOSE; Start 10/10/16 at 02:00 Glucagon (Glucagen) 1 mg Q15M PRN IM DECREASED GLUCOSE; Start 10/10/16 at 02:00 Glucose (Glutose) 15 gm Q15M PRN BUCCAL DECREASED GLUCOSE; Start 10/10/16 at 02 :00 IV Flush (NS 10 ml) 10 ml PRN PRN IV IV PROTOCOL; Start 10/10/16 at 12:30 Albuterol 4 puff 4 puff Q4 PRN INH for wheezing Last administered on 10/15/16 20:12; Admin Dose 4 PUFF; Start 10/10/16 at 13:30 Potassium Chloride/Sodium Chloride (KCl/1/2 NS) 1,020 ml @ 75 mls/hr [id number] IV Last administered on 10/20/16 07:46; Admin Dose 75 MLS/HR; Start 10/11/16 at 12:00 Metoprolol Tartrate (Lopressor) 25 mg BID PO Last administered on 10/17/16 21: 35; Admin Dose 25 MG; Start 10/12/16 at 21:00; Status Future Hold Furosemide (Lasix) 40 mg DAILY IV Last administered on 10/20/16 09:42; Admin Dose 40 MG; Start 10/13/16 at 09:30 Acetaminophen (Tylenol Tab) 650 mg Q6H PRN PO PAIN AND OR ELEVATED TEMP Last administered on 10/17/16 05:14; Admin Dose 650 MG; Start 10/13/16 at 15:00 Insulin Aspart (Novolog Insulin Pen) NOVOLOG *MODERATE* ALGORI... Q4 SC Last administered on 10/20/16 09:44; Admin Dose 6 UNIT; Start 10/13/16 at 21:00 Lorazepam 1 mg 1 mg Q6H PRN IV SEIZURES Last administered on 10/15/16 20:34; Admin Dose 1 MG; Start 10/13/16 at 23:30 Levetiracetam 100 ml @ 400 mls/hr Q12 IVPB Last administered on 10/20/16 09:42 ; Admin Dose 400 MLS/HR; Start 10/14/16 at 21:00 Piperacillin Sod/ Tazobactam Sod (Zosyn 3.375gm/ 100 ml (Pmx)) 100 ml @ 100 mls /hr Q6 IVPB Last administered on 10/20/16 05:34; Admin Dose 100 MLS/HR; Start 10/16/16 at 12:00 Lactobacillus Acidophilus 1 each 1 each BID NGT Last administered on 10/20/16 09:42; Admin Dose 1 EACH; Start 10/18/16 at 09:00 Norepinephrine 16 mg/Dextrose 500 ml @ 1.87 mls/hr TITRATE IV Last administered on 10/20/16 04:57; Admin Dose 11.25 MLS/HR; Start 10/18/16 at 10:00 Phenylephrine HCl/ Dextrose (Nicholas-Syneph/D5W) 500 ml @ 75 mls/hr TITRATE IV ; Start 10/18/16 at 10:00 Divalproex Sodium (Depakote) 500 mg TID PO Last administered on 10/20/16 09:42 ; Admin Dose 500 MG; Start 10/19/16 at 13:00 Insulin Glargine (Lantus) 20 unit DAILY@20 SC Last administered on 10/19/16 20: 36; Admin Dose 20 UNIT; Start 10/19/16 at 20:00 MARIE LYNCH October 20, 2016 10:03
--- NOTE | 2016-10-20 11:05 | CONS ---
Date/Time of Note Date/Time of Note DATE: 10/20/16 TIME: 11:04 Assessment/Plan Assessment/Plan Chief Complaint/Hosp Course 1) Acute [place] with likely anoxic brain injury MRI done and no acute bleeds but likely signs of anoxic injury prognosis is poor 10/16 - no response to stimuli, remains intubated 10/17 - no change 10/18 - no change, prognosis grim 2) development of L side infiltrate/effusion procalcitonin is pending Klebsiella is growing in sputum cx is very sensitive no MRSA continue with zosyn and d/c vanco get chest u/s to see if there is much fluid on L side or if mostly infiltrate 10/16 - chest u/s does not show any fluid, so this is all atelectasis/infiltrate continue with zosyn 10/17 - fevers are improved with normal WBC procalcitonin was minimally elevated on 10/12 will repeat continue with zosyn at present 10/18 - stable 10/19 - continue with zosyn thru 10/21 10/20 - will re-order sputum cx, pt is back on pressors continue zosyn thru 10/21 3) CoNS in blood cx only one set and this likely represents contamination d/c vanco and repeat blood cx tomorrow 10/16 - repeat blood cx were done yesterday, will not repeat today continue off vanco 10/17 - repeat blood cx remain NGTD 4) ARF improving with hydration 5) DM 6) seizures none overnight or today so far 7) diarrhea 10/18 - stool for c.dif and start probiotics 10/19 - c.dif was negative Problems: Consultation Date/Type/Reason Admit Date/Time Oct 10, 2016 at 03:49 Initial Consult Date 10/15/16 Type of Consultation: ID Referring Provider: ALEXANDR MOULTON MD 24 HR Interval Summary Free Text/Dictation no response to stimuli Subjective hx not possible: pt non-verbal Exam/Review of Systems Vital Signs Vitals Vital Signs Date Time Temp Pulse Resp B/P Pulse Ox O2 Delivery O2 Flow Rate FiO2 10/20/16 10:45 90 19 113/68 100 10/20/16 10:15 Mechanical Ventilator 10/20/16 09:10 30 10/20/16 08:00 98.4 Intake and Output 10/19/16 10/19/16 10/20/16 15:00 23:00 07:00 Intake Total 1528.49 ml 753.5 ml 1458 ml Output Total 860 ml 1365 ml 1570 ml Balance 668.49 ml -611.5 ml -112 ml Exam Constitutional: non-verbal ENMT: mucosa pink and moist Respiratory: clear to auscultation Cardiovascular: regular rate and rhythm Gastrointestinal: non-tender, soft Results Result Diagram: 10/20/16 0537 10/20/16 0537 Results 24 hrs Laboratory Tests Test 10/19/16 12:05 10/19/16 12:55 10/19/16 17:22 10/19/16 19:20 Activated Partial Thromboplast Time 70.3 *H 71.1 *H Bedside Glucose 251 H 244 H Test 10/19/16 20:30 10/20/16 00:28 10/20/16 05:33 10/20/16 05:37 Bedside Glucose 224 H 188 196 White Blood Count 12.7 #H Red Blood Count 3.03 L Hemoglobin 9.4 L Hematocrit 29.4 L Mean Corpuscular Volume 97.0 Mean Corpuscular Hemoglobin 31.0 Mean Corpuscular Hemoglobin Concent 32.0 Red Cell Distribution Width 17.0 H Platelet Count 302 Mean Platelet Volume 11.0 H Neutrophils % 80.3 H Lymphocytes % 5.5 L Monocytes % 6.2 Eosinophils % 3.2 Basophils % 0.7 Nucleated Red Blood Cells % 0.0 Neutrophils # 10.2 H Lymphocytes # 0.7 L Monocytes # 0.8 Eosinophils # 0.4 Basophils # 0.1 Nucleated Red Blood Cells # 0.0 Activated Partial Thromboplast Time 52.2 H Sodium Level 136 Potassium Level 4.8 Chloride Level 102 Carbon Dioxide Level 25 Anion Gap 14 Blood Urea Nitrogen 18 Creatinine 1.01 Glucose Level 207 Calcium Level 9.3 Test 10/20/16 09:40 Bedside Glucose 237 H Medications Medications Current Medications Eye Lubricant (Artificial Tears Oph) 1 drop TID BOTH EYES Last administered on 10/20/16 09:42; Admin Dose 1 DROP; Start 10/09/16 at 09:00 Famotidine (Pepcid Iv) 20 mg DAILY IV Last administered on 10/20/16 09:42; Admin Dose 20 MG; Start 10/09/16 at 09:00 Aspirin 81 mg 81 mg DAILY PO Last administered on 10/20/16 09:42; Admin Dose 81 MG; Start 10/10/16 at 09:00 Propofol (Diprivan) 100 ml @ 0 mls/hr TITRATE IV ; Start 10/10/16 at 01:00 Miscellaneous Information 1 ea NOTE XX ; Start 10/10/16 at 02:00 Glucose (Glutose) 15 gm Q15M PRN PO DECREASED GLUCOSE; Start 10/10/16 at 02:00 Glucose (Glutose) 22.5 gm Q15M PRN PO DECREASED GLUCOSE; Start 10/10/16 at 02: 00 Dextrose (D50w Syringe) 25 ml Q15M PRN IV DECREASED GLUCOSE; Start 10/10/16 at 02:00 Dextrose (D50w Syringe) 50 ml Q15M PRN IV DECREASED GLUCOSE; Start 10/10/16 at 02:00 Glucagon (Glucagen) 1 mg Q15M PRN IM DECREASED GLUCOSE; Start 10/10/16 at 02:00 Glucose (Glutose) 15 gm Q15M PRN BUCCAL DECREASED GLUCOSE; Start 10/10/16 at 02 :00 IV Flush (NS 10 ml) 10 ml PRN PRN IV IV PROTOCOL; Start 10/10/16 at 12:30 Albuterol 4 puff 4 puff Q4 PRN INH for wheezing Last administered on 10/15/16 20:12; Admin Dose 4 PUFF; Start 10/10/16 at 13:30 Potassium Chloride/Sodium Chloride (KCl/1/2 NS) 1,020 ml @ 75 mls/hr [id number] IV Last administered on 10/20/16 07:46; Admin Dose 75 MLS/HR; Start 10/11/16 at 12:00 Metoprolol Tartrate (Lopressor) 25 mg BID PO Last administered on 10/17/16 21: 35; Admin Dose 25 MG; Start 10/12/16 at 21:00; Status Future Hold Furosemide (Lasix) 40 mg DAILY IV Last administered on 10/20/16 09:42; Admin Dose 40 MG; Start 10/13/16 at 09:30 Acetaminophen (Tylenol Tab) 650 mg Q6H PRN PO PAIN AND OR ELEVATED TEMP Last administered on 10/17/16 05:14; Admin Dose 650 MG; Start 10/13/16 at 15:00 Insulin Aspart (Novolog Insulin Pen) NOVOLOG *MODERATE* ALGORI... Q4 SC Last administered on 10/20/16 09:44; Admin Dose 6 UNIT; Start 10/13/16 at 21:00 Lorazepam 1 mg 1 mg Q6H PRN IV SEIZURES Last administered on 10/15/16 20:34; Admin Dose 1 MG; Start 10/13/16 at 23:30 Levetiracetam 100 ml @ 400 mls/hr Q12 IVPB Last administered on 10/20/16 09:42 ; Admin Dose 400 MLS/HR; Start 10/14/16 at 21:00 Piperacillin Sod/ Tazobactam Sod (Zosyn 3.375gm/ 100 ml (Pmx)) 100 ml @ 100 mls /hr Q6 IVPB Last administered on 10/20/16 05:34; Admin Dose 100 MLS/HR; Start 10/16/16 at 12:00 Lactobacillus Acidophilus 1 each 1 each BID NGT Last administered on 10/20/16 09:42; Admin Dose 1 EACH; Start 10/18/16 at 09:00 Norepinephrine 16 mg/Dextrose 500 ml @ 1.87 mls/hr TITRATE IV Last administered on 10/20/16 04:57; Admin Dose 11.25 MLS/HR; Start 10/18/16 at 10:00 Phenylephrine HCl/ Dextrose (Nicholas-Syneph/D5W) 500 ml @ 75 mls/hr TITRATE IV ; Start 10/18/16 at 10:00 Divalproex Sodium (Depakote) 500 mg TID PO Last administered on 10/20/16 09:42 ; Admin Dose 500 MG; Start 10/19/16 at 13:00 Insulin Glargine (Lantus) 20 unit DAILY@20 SC Last administered on 10/19/16 20: 36; Admin Dose 20 UNIT; Start 10/19/16 at 20:00 MANISH MULLINS MD October 20, 2016 11:05
--- NOTE | 2016-10-20 11:39 | CONS ---
Date/Time of Note Date/Time of Note DATE: 10/20/16 TIME: 11:34 Assessment/Plan Assessment/Plan Chief Complaint/Hosp Course IMPRESSION: 1. Positive troponins/non-ST elevation myocardial infarction, likely secondary to the patient's cardiopulmonary arrest, as the patient has had recent left heart catheterization July 2016 revealing no significant obstructive disease.-now troponin trended negative 2. Congestive heart failure, diastolic, acute on chronic, as the patient has undergone a 2D echo during this admission, interpreted by another memory care program director as having a preserved EF of 65% with mild aortic stenosis and bio prosthetic mitral valve and moderate tricuspid regurgitation. 3. Abnormal electrocardiogram with diffuse nonspecific ST and T-wave abnormalities, 4. Respiratory failure, status post intubation. 5. Encephalopathy. 6. History of mitral valve replacement with bioprosthesis and per echo aortic valve bioprosthesis 7. Atrial fibrillation on heparin-rate controlled 8. Hypotension, borderline. 9. Diabetes mellitus. 10. Anemia. 11. Renal failure-improved. 12.seizure episode-focal of leg improved with benzo Recc: -Tele -Continue asa -Hold BB as patient now back on pressors -Continue daily lasix diuresis as tolerated only -Follow MS closely -Continue heparin for now -wean vent as possible -Ongoing family discussion re goals of care with possible progression to terminal extubation Problems: Consultation Date/Type/Reason Admit Date/Time Oct 10, 2016 at 03:49 Initial Consult Date 10/10/16 Type of Consultation: Cardiology Reason for Consultation cardiopulmonary arrest Referring Provider: ALEXANDR MOULTON MD Exam/Review of Systems Vital Signs Vitals Vital Signs Date Time Temp Pulse Resp B/P Pulse Ox O2 Delivery O2 Flow Rate FiO2 10/20/16 10:45 90 19 113/68 100 10/20/16 10:15 Mechanical Ventilator 10/20/16 09:10 30 10/20/16 08:00 98.4 Intake and Output 10/19/16 10/19/16 10/20/16 15:00 23:00 07:00 Intake Total 1528.49 ml 753.5 ml 1458 ml Output Total 860 ml 1365 ml 1570 ml Balance 668.49 ml -611.5 ml -112 ml Exam Review of Systems: CONSTITUTIONAL: No fevers, chills. PULMONARY: intubated CARDIOVASCULAR: No chest pain/palpitations GASTROINTESTINAL: No nausea/vomiting. GENITOURINARY: No hematuria/dysuria. MUSCULOSKELETAL: No myagias/arthalgias. PSYCHIATRIC: The patient denies depression. NEUROLOGIC: Encephalopathic Constitutional: other (encephalopathy) Psych: no complaints Head: normocephalic ENMT: mucosa pink and moist Neck: jvd (9 cm water), supple Respiratory: other (upper airway rhocnhi) Cardiovascular: regular rate and rhythm Gastrointestinal: non-tender, soft Musculoskeletal: muscle tone (normal) Extremities: edema (none) 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: other (encephalopathy) Results Result Diagram: 10/20/16 0537 10/20/16 0537 Results 24 hrs Laboratory Tests Test 10/19/16 12:05 10/19/16 12:55 10/19/16 17:22 10/19/16 19:20 Activated Partial Thromboplast Time 70.3 *H 71.1 *H Bedside Glucose 251 H 244 H Test 10/19/16 20:30 10/20/16 00:28 10/20/16 05:33 10/20/16 05:37 Bedside Glucose 224 H 188 196 White Blood Count 12.7 #H Red Blood Count 3.03 L Hemoglobin 9.4 L Hematocrit 29.4 L Mean Corpuscular Volume 97.0 Mean Corpuscular Hemoglobin 31.0 Mean Corpuscular Hemoglobin Concent 32.0 Red Cell Distribution Width 17.0 H Platelet Count 302 Mean Platelet Volume 11.0 H Neutrophils % 80.3 H Lymphocytes % 5.5 L Monocytes % 6.2 Eosinophils % 3.2 Basophils % 0.7 Nucleated Red Blood Cells % 0.0 Neutrophils # 10.2 H Lymphocytes # 0.7 L Monocytes # 0.8 Eosinophils # 0.4 Basophils # 0.1 Nucleated Red Blood Cells # 0.0 Activated Partial Thromboplast Time 52.2 H Sodium Level 136 Potassium Level 4.8 Chloride Level 102 Carbon Dioxide Level 25 Anion Gap 14 Blood Urea Nitrogen 18 Creatinine 1.01 Glucose Level 207 Calcium Level 9.3 Test 10/20/16 09:40 Bedside Glucose 237 H Medications Medications Current Medications Eye Lubricant (Artificial Tears Oph) 1 drop TID BOTH EYES Last administered on 10/20/16 09:42; Admin Dose 1 DROP; Start 10/09/16 at 09:00 Famotidine (Pepcid Iv) 20 mg DAILY IV Last administered on 10/20/16 09:42; Admin Dose 20 MG; Start 10/09/16 at 09:00 Aspirin 81 mg 81 mg DAILY PO Last administered on 10/20/16 09:42; Admin Dose 81 MG; Start 10/10/16 at 09:00 Propofol (Diprivan) 100 ml @ 0 mls/hr TITRATE IV ; Start 10/10/16 at 01:00 Miscellaneous Information 1 ea NOTE XX ; Start 10/10/16 at 02:00 Glucose (Glutose) 15 gm Q15M PRN PO DECREASED GLUCOSE; Start 10/10/16 at 02:00 Glucose (Glutose) 22.5 gm Q15M PRN PO DECREASED GLUCOSE; Start 10/10/16 at 02: 00 Dextrose (D50w Syringe) 25 ml Q15M PRN IV DECREASED GLUCOSE; Start 10/10/16 at 02:00 Dextrose (D50w Syringe) 50 ml Q15M PRN IV DECREASED GLUCOSE; Start 10/10/16 at 02:00 Glucagon (Glucagen) 1 mg Q15M PRN IM DECREASED GLUCOSE; Start 10/10/16 at 02:00 Glucose (Glutose) 15 gm Q15M PRN BUCCAL DECREASED GLUCOSE; Start 10/10/16 at 02 :00 IV Flush (NS 10 ml) 10 ml PRN PRN IV IV PROTOCOL; Start 10/10/16 at 12:30 Albuterol 4 puff 4 puff Q4 PRN INH for wheezing Last administered on 10/15/16 20:12; Admin Dose 4 PUFF; Start 10/10/16 at 13:30 Potassium Chloride/Sodium Chloride (KCl/1/2 NS) 1,020 ml @ 75 mls/hr [id number] IV Last administered on 10/20/16 07:46; Admin Dose 75 MLS/HR; Start 10/11/16 at 12:00 Metoprolol Tartrate (Lopressor) 25 mg BID PO Last administered on 10/17/16 21: 35; Admin Dose 25 MG; Start 10/12/16 at 21:00; Status Future Hold Furosemide (Lasix) 40 mg DAILY IV Last administered on 10/20/16 09:42; Admin Dose 40 MG; Start 10/13/16 at 09:30 Acetaminophen (Tylenol Tab) 650 mg Q6H PRN PO PAIN AND OR ELEVATED TEMP Last administered on 10/17/16 05:14; Admin Dose 650 MG; Start 10/13/16 at 15:00 Insulin Aspart (Novolog Insulin Pen) NOVOLOG *MODERATE* ALGORI... Q4 SC Last administered on 10/20/16 09:44; Admin Dose 6 UNIT; Start 10/13/16 at 21:00 Lorazepam 1 mg 1 mg Q6H PRN IV SEIZURES Last administered on 10/15/16 20:34; Admin Dose 1 MG; Start 10/13/16 at 23:30 Levetiracetam 100 ml @ 400 mls/hr Q12 IVPB Last administered on 10/20/16 09:42 ; Admin Dose 400 MLS/HR; Start 10/14/16 at 21:00 Piperacillin Sod/ Tazobactam Sod (Zosyn 3.375gm/ 100 ml (Pmx)) 100 ml @ 100 mls /hr Q6 IVPB Last administered on 10/20/16 05:34; Admin Dose 100 MLS/HR; Start 10/16/16 at 12:00 Lactobacillus Acidophilus 1 each 1 each BID NGT Last administered on 10/20/16 09:42; Admin Dose 1 EACH; Start 10/18/16 at 09:00 Norepinephrine 16 mg/Dextrose 500 ml @ 1.87 mls/hr TITRATE IV Last administered on 10/20/16 04:57; Admin Dose 11.25 MLS/HR; Start 10/18/16 at 10:00 Phenylephrine HCl/ Dextrose (Nicholas-Syneph/D5W) 500 ml @ 75 mls/hr TITRATE IV ; Start 10/18/16 at 10:00 Divalproex Sodium (Depakote) 500 mg TID PO Last administered on 10/20/16 09:42 ; Admin Dose 500 MG; Start 10/19/16 at 13:00 Insulin Glargine (Lantus) 20 unit DAILY@20 SC Last administered on 10/19/16 20: 36; Admin Dose 20 UNIT; Start 10/19/16 at 20:00 ESTEFANI BORREGO October 20, 2016 11:39
--- NOTE | 2016-10-20 13:28 | RADRPT ---
PROCEDURE: XR Chest. CLINICAL INDICATION: Shortness of breath. TECHNIQUE: Single frontal view. COMPARISON: 10/15/2016. FINDINGS: The endotracheal tube, nasogastric tube, and right arm PICC line remain in satisfactory position. T here is mild atelectasis at the lung bases, slightly improved. The lungs are otherwise clear. The heart is enlarged. There are sternal wires and mediastinal clips. There is a mitral valve repl acement. Calcification is present in the aorta consistent with atherosclerosis. There are small bilateral pleural effusions. There is no pneumothorax. IMPRESSION: 1. Endotracheal tube in satisfactory position. 2. No other significant change when compared with 10/15/2016. RPTAT: QQ .Isaias Cabrera MD, MD Date Time Electronically viewed and signed by .Isaias Cabrera MD, on 10/20/2016 13:28 .R/
--- NOTE | 2016-10-20 15:21 | PN ---
DATE: SUBJECTIVE: The patient remains intubated and sedated, not on any sedatives or anxiolytics. PHYSICAL EXAMINATION: VITAL SIGNS: Temperature 97.3, blood pressure 82/56, heart rate 100 per minute. CHEST: Occasional wheezes anteriorly. HEART: S1, S2 heard, with no definite gallops. ABDOMEN: Soft, nontender. EXTREMITIES: No edema. NEUROLOGIC: Unchanged. Does not respond to verbal commands. Involuntary opening of the eyelids not ed. LABORATORY: WBC count 12.7, hematocrit 29.4, BUN 18, creatinine 1.01. Glucose 237, and 171 today. IMPRESSION: 1. Status post cardiorespiratory arrest, with anoxic encephalopathy. 2. Acute respiratory failure, with likely aspiration pneumonia. 3. Severe chronic obstructive pulmonary disease. 4. Atrial fibrillation. 5. Mild congestive heart failure. 6. Diabetes mellitus type 2. Well controlled. 7. Status post mitral and aortic valve replacement. PLAN: The patient's overall prognosis is poor, and the patient's family members are deciding about terminal extubation. Discussed with the patient's daughter, , regarding the patient's prognosi s which is poor. Dictated By: ALEXANDR MOULTON MD SR/SUDHAKAR Conf#: [id number] DID#: [id number]
[2016-10-20] MEDS: INSULIN GLARGINE [LANtus] 3 ML PEN SC SCH (20:22)
[2016-10-20 22:20] LABS: INR 1.16; PROTIME 14.8 Sec (12.2-14.2); PT RATIO 1.2
[2016-10-20 22:52] LABS: PARTIAL THROMBOPLASTIN TIME 74.6 Sec (25.0-35.0)
[2016-10-21] VITALS (61 sets, daily range): BP systolic 76–142; BP diastolic 54–93; PULSE 70–139; RESP 8–22
[2016-10-21] MEDS: PIPER-TAZO 3.375 GM IV (PMX) 100 ML IVPB SCH ×2 (00:13→05:37)
[2016-10-21] MEDS: INSULIN ASPART [NOVOLOG] 3 ML PEN SC SCH ×3 (00:15→09:10)
[2016-10-21] MEDS: POTASSIUM CHLORIDE 40 MEQ in SOD CHLORIDE 0.45% 1,000 ML IV SCH ×2 (04:36→09:11)
[2016-10-21] MEDS: HEPARIN 25000 UNITS/250 ML 250 ML IV SCH (04:39)
[2016-10-21 06:33] LABS: ADD SCAN DIFF NO
[2016-10-21 06:51] LABS: BASOPHILS % 0.4 % (0.0-2.0); EOSINOPHILS # 0.3 10^3/ul (0.0-0.5); EOSINOPHILS % 2.3 % (0.0-7.0); HEMOGLOBIN 9.2 g/dl (14.0-18.0); LYMPHOCYTES # 0.7 10^3/ul (0.8-2.9); LYMPHOCYTES % 6.1 % (15.0-51.0); MEAN CORPUSCULAR HEMOGLOBIN 31.5 pg (29.0-33.0); MEAN CORPUSCULAR HGB CONC 32.9 g/dl (32.0-37.0); MEAN CORPUSCULAR VOLUME 95.9 fl (82.0-101.0); MEAN PLATELET VOLUME 10.3 fl (7.4-10.4); MONOCYTE # 0.7 10^3/ul (0.3-0.9); MONOCYTES % 6.2 % (0.0-11.0); NEUTROPHILS % 82.3 % (39.0-77.0); PLATELET COUNT 284 10^3/UL (140-415); RED BLOOD COUNT 2.92 10^6/ul (4.70-6.10); WHITE BLOOD COUNT 10.9 10^3/ul (4.8-10.8)
[2016-10-21 07:09] LABS: ALBUMIN 2.9 g/dl (3.3-4.9); POTASSIUM 4.7 mmol/L (3.5-5.1)
[2016-10-21 07:11] LABS: BILIRUBIN,INDIRECT 0.2 mg/dl (0-1.1); BILIRUBIN,TOTAL 0.2 mg/dl (0.2-1.3); CREATININE 1.1 mg/dl (0.61-1.24)
[2016-10-21 07:12] LABS: ALBUMIN/GLOBULIN RATIO 0.85; CALCIUM 9.4 mg/dl (8.4-10.2); TOTAL PROTEIN 6.3 g/dl (6.1-8.1)
[2016-10-21] MEDS: L ACIDOPHIL/B LACTIS/B LONGUM CAPSULE NGT SCH (09:06)
[2016-10-21] MEDS: FUROSEMIDE 40 MG INJ IV SCH (09:06)
[2016-10-21] MEDS: ASPIRIN 81 MG TAB PO SCH (09:06)
[2016-10-21] MEDS: DIVALPROEX (EC) 500 MG TAB PO SCH (09:06)
[2016-10-21] MEDS: ARTIFICIAL TEARS 15 ML OPH BOTH EYES SCH (09:06)
[2016-10-21] MEDS: FAMOTIDINE 20 MG INJ IV SCH (09:06)
[2016-10-21] MEDS: LEVETIRACETAM 500 MG (PMX) 100 ML IVPB SCH (09:06)
--- NOTE | 2016-10-21 09:29 | CONS ---
Date/Time of Note Date/Time of Note DATE: 10/21/16 TIME: 09:28 Assessment/Plan Assessment/Plan Chief Complaint/Hosp Course 1) Acute PR with likely anoxic brain injury MRI done and no acute bleeds but likely signs of anoxic injury prognosis is poor 10/16 - no response to stimuli, remains intubated 10/17 - no change 10/18 - no change, prognosis grim 2) development of L side infiltrate/effusion procalcitonin is pending Klebsiella is growing in sputum cx is very sensitive no MRSA continue with zosyn and d/c vanco get chest u/s to see if there is much fluid on L side or if mostly infiltrate 10/16 - chest u/s does not show any fluid, so this is all atelectasis/infiltrate continue with zosyn 10/17 - fevers are improved with normal WBC procalcitonin was minimally elevated on 10/12 will repeat continue with zosyn at present 10/18 - stable 10/19 - continue with zosyn thru 10/21 10/20 - will re-order sputum cx, pt is back on pressors continue zosyn thru 10/21 10/21 - spoke to nurse, terminal extubation later today 3) CoNS in blood cx only one set and this likely represents contamination d/c vanco and repeat blood cx tomorrow 10/16 - repeat blood cx were done yesterday, will not repeat today continue off vanco 10/17 - repeat blood cx remain NGTD 4) ARF improving with hydration 5) DM 6) seizures none overnight or today so far 7) diarrhea 10/18 - stool for c.dif and start probiotics 10/19 - c.dif was negative Problems: Consultation Date/Type/Reason Admit Date/Time Oct 10, 2016 at 03:49 Initial Consult Date 10/15/16 Type of Consultation: ID Referring Provider: ALEXANDR MOULTON MD 24 HR Interval Summary Subjective hx not possible: pt non-verbal Exam/Review of Systems Vital Signs Vitals Vital Signs Date Time Temp Pulse Resp B/P Pulse Ox O2 Delivery O2 Flow Rate FiO2 10/21/16 07:45 88 20 113/73 100 10/21/16 07:44 30 10/21/16 07:00 Mechanical Ventilator 10/21/16 04:00 98.8 Intake and Output 10/20/16 10/20/16 10/21/16 15:00 23:00 07:00 Intake Total 1337.25 ml 1033.86 ml 1400 ml Output Total 2680 ml 2140 ml 1720 ml Balance -1342.75 ml -1106.14 ml -320 ml Results Result Diagram: 10/21/16 0515 10/21/16 0515 Results 24 hrs Laboratory Tests Test 10/20/16 09:40 10/20/16 12:45 10/20/16 14:18 10/20/16 17:42 Bedside Glucose 237 H 171 250 H Activated Partial Thromboplast Time 57.5 H Test 10/20/16 20:19 10/20/16 21:46 10/21/16 00:13 10/21/16 05:15 Bedside Glucose 196 211 Prothrombin Time 14.8 #H Prothrombin Time Ratio 1.2 INR International Normalized Ratio 1.16 Activated Partial Thromboplast Time 74.6 *H 70.6 *H White Blood Count 10.9 H Red Blood Count 2.92 L Hemoglobin 9.2 L Hematocrit 28.0 L Mean Corpuscular Volume 95.9 Mean Corpuscular Hemoglobin 31.5 Mean Corpuscular Hemoglobin Concent 32.9 Red Cell Distribution Width 17.0 H Platelet Count 284 Mean Platelet Volume 10.3 Neutrophils % 82.3 H Lymphocytes % 6.1 L Monocytes % 6.2 Eosinophils % 2.3 Basophils % 0.4 Nucleated Red Blood Cells % 0.0 Neutrophils # 9.0 H Lymphocytes # 0.7 L Monocytes # 0.7 Eosinophils # 0.3 Basophils # 0.0 Nucleated Red Blood Cells # 0.0 Sodium Level 135 Potassium Level 4.7 Chloride Level 99 Carbon Dioxide Level 27 Anion Gap 14 Blood Urea Nitrogen 24 H Creatinine 1.10 Glucose Level 237 H Calcium Level 9.4 Total Bilirubin 0.2 Direct Bilirubin 0.00 Indirect Bilirubin 0.2 Aspartate Amino Transf (AST/SGOT) 42 Alanine Aminotransferase (ALT/SGPT) 32 Alkaline Phosphatase 73 Total Protein 6.3 Albumin 2.9 L Globulin 3.40 H Albumin/Globulin Ratio 0.85 Test 10/21/16 05:36 10/21/16 09:08 Bedside Glucose 247 H 217 Medications Medications Current Medications Eye Lubricant (Artificial Tears Oph) 1 drop TID BOTH EYES Last administered on 10/21/16t 09:06; Admin Dose 1 DROP; Start 10/09/16 at 09:00 Famotidine (Pepcid Iv) 20 mg DAILY IV Last administered on 10/21/16 09:06; Admin Dose 20 MG; Start 10/09/16 at 09:00 Aspirin 81 mg 81 mg DAILY PO Last administered on 10/21/16 09:06; Admin Dose 81 MG; Start 10/10/16 at 09:00 Propofol (Diprivan) 100 ml @ 0 mls/hr TITRATE IV ; Start 10/10/16 at 01:00 Miscellaneous Information 1 ea NOTE XX ; Start 10/10/16 at 02:00 Glucose (Glutose) 15 gm Q15M PRN PO DECREASED GLUCOSE; Start 10/10/16 at 02:00 Glucose (Glutose) 22.5 gm Q15M PRN PO DECREASED GLUCOSE; Start 10/10/16 at 02: 00 Dextrose (D50w Syringe) 25 ml Q15M PRN IV DECREASED GLUCOSE; Start 10/10/16 at 02:00 Dextrose (D50w Syringe) 50 ml Q15M PRN IV DECREASED GLUCOSE; Start 10/10/16 at 02:00 Glucagon (Glucagen) 1 mg Q15M PRN IM DECREASED GLUCOSE; Start 10/10/16 at 02:00 Glucose (Glutose) 15 gm Q15M PRN BUCCAL DECREASED GLUCOSE; Start 10/10/16 at 02 :00 IV Flush (NS 10 ml) 10 ml PRN PRN IV IV PROTOCOL; Start 10/10/16 at 12:30 Albuterol 4 puff 4 puff Q4 PRN INH for wheezing Last administered on 10/15/16 20:12; Admin Dose 4 PUFF; Start 10/10/16 at 13:30 Potassium Chloride/Sodium Chloride (KCl/1/2 NS) 1,020 ml @ 75 mls/hr [id number] IV Last administered on 10/21/16 09:11; Admin Dose 75 MLS/HR; Start 10/11/16 at 12:00 Metoprolol Tartrate (Lopressor) 25 mg BID PO Last administered on 10/17/16 21: 35; Admin Dose 25 MG; Start 10/12/16 at 21:00; Status Future Hold Furosemide (Lasix) 40 mg DAILY IV Last administered on 10/21/16 09:06; Admin Dose 40 MG; Start 10/13/16 at 09:30 Acetaminophen (Tylenol Tab) 650 mg Q6H PRN PO PAIN AND OR ELEVATED TEMP Last administered on 10/17/16 05:14; Admin Dose 650 MG; Start 10/13/16 at 15:00 Insulin Aspart (Novolog Insulin Pen) NOVOLOG *MODERATE* ALGORI... Q4 SC Last administered on 10/21/16 09:10; Admin Dose 4 UNIT; Start 10/13/16 at 21:00 Lorazepam 1 mg 1 mg Q6H PRN IV SEIZURES Last administered on 10/15/16 20:34; Admin Dose 1 MG; Start 10/13/16 at 23:30 Levetiracetam 100 ml @ 400 mls/hr Q12 IVPB Last administered on 10/21/16 09:06 ; Admin Dose 400 MLS/HR; Start 10/14/16 at 21:00 Piperacillin Sod/ Tazobactam Sod (Zosyn 3.375gm/ 100 ml (Pmx)) 100 ml @ 100 mls /hr Q6 IVPB Last administered on 10/21/16 05:37; Admin Dose 100 MLS/HR; Start 10/16/16 at 12:00 Lactobacillus Acidophilus 1 each 1 each BID NGT Last administered on 10/21/16 09:06; Admin Dose 1 EACH; Start 10/18/16 at 09:00 Norepinephrine 16 mg/Dextrose 500 ml @ 1.87 mls/hr TITRATE IV Last administered on 10/21/16 02:38; Admin Dose 5.62 MLS/HR; Start 10/18/16 at 10:00 Phenylephrine HCl/ Dextrose (Nicholas-Syneph/D5W) 500 ml @ 75 mls/hr TITRATE IV ; Start 10/18/16 at 10:00 Divalproex Sodium (Depakote) 500 mg TID PO Last administered on 10/21/16 09:06 ; Admin Dose 500 MG; Start 10/19/16 at 13:00 Insulin Glargine (Lantus) 20 unit DAILY@20 SC Last administered on 10/20/16 20: 22; Admin Dose 20 UNIT; Start 10/19/16 at 20:00 MANISH MULLINS MD October 21, 2016 09:29
--- NOTE | 2016-10-21 09:40 | CONS ---
Date/Time of Note Date/Time of Note DATE: 10/21/16 TIME: 09:37 Assessment/Plan Assessment/Plan Additional Assessment/Plan Chest x-ray was reviewed from yesterday afternoon which is essentially clear. Except for very minimal bibasilar atelectatic changes. Endotracheal tube is at an adequate level. Ventilator settings; AC of 14, tidal volume 500, PEEP of 5, 30% FiO2. Patient currently on Levophed at 3 mics per minute. Assessment recommendations; 1. Patient admitted for cardiac arrest status post CPR with severe anoxic brain injury. 2. Myoclonic activity currently well controlled with antiseizure medications. 3. Patient off antibiotics now, currently no evidence of any infective process. 4. Prior history of coronary artery disease. 5. Chronic atrial ablation. 6. History of hypertension and diabetes. Continue current supportive care. Patient's family likely will opt for terminal extubation sometime today. Prognosis is dismal. 35 minutes of critical care time was spent evaluating the patient. Consultation Date/Type/Reason Admit Date/Time Oct 10, 2016 at 03:49 Initial Consult Date 10/15/16 Type of Consultation: Pulmonary/critical care Referring Provider: ALEXANDR MOULTON MD 24 HR Interval Summary Free Text/Dictation Patient condition remains critical. Remains completely unresponsive. No seizure activity or myoclonic jerking observed. Still requiring low-dose pressor support for blood pressure maintenance. General exam; elderly male, orally intubated, unresponsive. Currently in no distress. Exam/Review of Systems Vital Signs Vitals Vital Signs Date Time Temp Pulse Resp B/P Pulse Ox O2 Delivery O2 Flow Rate FiO2 10/21/16 08:15 30 10/21/16 07:45 88 20 113/73 100 10/21/16 07:00 Mechanical Ventilator 10/21/16 04:00 98.8 Intake and Output 10/20/16 10/20/16 10/21/16 15:00 23:00 07:00 Intake Total 1337.25 ml 1033.86 ml 1400 ml Output Total 2680 ml 2140 ml 1720 ml Balance -1342.75 ml -1106.14 ml -320 ml Exam HEENT exam is; supple neck, no JVD. Orally intubated. No thyromegaly. Patient has a left intraocular lens implant. Dentition is fair. No neck masses. Chest examined; clear to auscultation. S1-S2 audible, no murmurs. Irregular rhythm. There is a well-healed sternal scar. Abdomen examination; soft, nondistended. No organomegaly. Bowel sounds audible. Extremity exam; no peripheral edema. BUSINESS MANAGEMENT SPECIALIST examination; patient remains unresponsive. Results Result Diagram: 10/21/16 0515 10/21/16 0515 Results 24 hrs Laboratory Tests Test 10/20/16 09:40 10/20/16 12:45 10/20/16 14:18 10/20/16 17:42 Bedside Glucose 237 H 171 250 H Activated Partial Thromboplast Time 57.5 H Test 10/20/16 20:19 10/20/16 21:46 10/21/16 00:13 10/21/16 05:15 Bedside Glucose 196 211 Prothrombin Time 14.8 #H Prothrombin Time Ratio 1.2 INR International Normalized Ratio 1.16 Activated Partial Thromboplast Time 74.6 *H 70.6 *H White Blood Count 10.9 H Red Blood Count 2.92 L Hemoglobin 9.2 L Hematocrit 28.0 L Mean Corpuscular Volume 95.9 Mean Corpuscular Hemoglobin 31.5 Mean Corpuscular Hemoglobin Concent 32.9 Red Cell Distribution Width 17.0 H Platelet Count 284 Mean Platelet Volume 10.3 Neutrophils % 82.3 H Lymphocytes % 6.1 L Monocytes % 6.2 Eosinophils % 2.3 Basophils % 0.4 Nucleated Red Blood Cells % 0.0 Neutrophils # 9.0 H Lymphocytes # 0.7 L Monocytes # 0.7 Eosinophils # 0.3 Basophils # 0.0 Nucleated Red Blood Cells # 0.0 Sodium Level 135 Potassium Level 4.7 Chloride Level 99 Carbon Dioxide Level 27 Anion Gap 14 Blood Urea Nitrogen 24 H Creatinine 1.10 Glucose Level 237 H Calcium Level 9.4 Total Bilirubin 0.2 Direct Bilirubin 0.00 Indirect Bilirubin 0.2 Aspartate Amino Transf (AST/SGOT) 42 Alanine Aminotransferase (ALT/SGPT) 32 Alkaline Phosphatase 73 Total Protein 6.3 Albumin 2.9 L Globulin 3.40 H Albumin/Globulin Ratio 0.85 Test 10/21/16 05:36 10/21/16 09:08 Bedside Glucose 247 H 217 Medications Medications Current Medications Eye Lubricant (Artificial Tears Oph) 1 drop TID BOTH EYES Last administered on 10/21/16t 09:06; Admin Dose 1 DROP; Start 10/09/16 at 09:00 Famotidine (Pepcid Iv) 20 mg DAILY IV Last administered on 10/21/16 09:06; Admin Dose 20 MG; Start 10/09/16 at 09:00 Aspirin 81 mg 81 mg DAILY PO Last administered on 10/21/16 09:06; Admin Dose 81 MG; Start 10/10/16 at 09:00 Propofol (Diprivan) 100 ml @ 0 mls/hr TITRATE IV ; Start 10/10/16 at 01:00 Miscellaneous Information 1 ea NOTE XX ; Start 10/10/16 at 02:00 Glucose (Glutose) 15 gm Q15M PRN PO DECREASED GLUCOSE; Start 10/10/16 at 02:00 Glucose (Glutose) 22.5 gm Q15M PRN PO DECREASED GLUCOSE; Start 10/10/16 at 02: 00 Dextrose (D50w Syringe) 25 ml Q15M PRN IV DECREASED GLUCOSE; Start 10/10/16 at 02:00 Dextrose (D50w Syringe) 50 ml Q15M PRN IV DECREASED GLUCOSE; Start 10/10/16 at 02:00 Glucagon (Glucagen) 1 mg Q15M PRN IM DECREASED GLUCOSE; Start 10/10/16 at 02:00 Glucose (Glutose) 15 gm Q15M PRN BUCCAL DECREASED GLUCOSE; Start 10/10/16 at 02 :00 IV Flush (NS 10 ml) 10 ml PRN PRN IV IV PROTOCOL; Start 10/10/16 at 12:30 Albuterol 4 puff 4 puff Q4 PRN INH for wheezing Last administered on 10/15/16 20:12; Admin Dose 4 PUFF; Start 10/10/16 at 13:30 Potassium Chloride/Sodium Chloride (KCl/1/2 NS) 1,020 ml @ 75 mls/hr [id number] IV Last administered on 10/21/16 09:11; Admin Dose 75 MLS/HR; Start 10/11/16 at 12:00 Metoprolol Tartrate (Lopressor) 25 mg BID PO Last administered on 10/17/16 21: 35; Admin Dose 25 MG; Start 10/12/16 at 21:00; Status Future Hold Furosemide (Lasix) 40 mg DAILY IV Last administered on 10/21/16 09:06; Admin Dose 40 MG; Start 10/13/16 at 09:30 Acetaminophen (Tylenol Tab) 650 mg Q6H PRN PO PAIN AND OR ELEVATED TEMP Last administered on 10/17/16 05:14; Admin Dose 650 MG; Start 10/13/16 at 15:00 Insulin Aspart (Novolog Insulin Pen) NOVOLOG *MODERATE* ALGORI... Q4 SC Last administered on 10/21/16 09:10; Admin Dose 4 UNIT; Start 10/13/16 at 21:00 Lorazepam 1 mg 1 mg Q6H PRN IV SEIZURES Last administered on 10/15/16 20:34; Admin Dose 1 MG; Start 10/13/16 at 23:30 Levetiracetam 100 ml @ 400 mls/hr Q12 IVPB Last administered on 10/21/16 09:06 ; Admin Dose 400 MLS/HR; Start 10/14/16 at 21:00 Piperacillin Sod/ Tazobactam Sod (Zosyn 3.375gm/ 100 ml (Pmx)) 100 ml @ 100 mls /hr Q6 IVPB Last administered on 10/21/16 05:37; Admin Dose 100 MLS/HR; Start 10/16/16 at 12:00; Stop 10/21/16 at 23:00 Lactobacillus Acidophilus 1 each 1 each BID NGT Last administered on 10/21/16 09:06; Admin Dose 1 EACH; Start 10/18/16 at 09:00 Norepinephrine 16 mg/Dextrose 500 ml @ 1.87 mls/hr TITRATE IV Last administered on 10/21/16 02:38; Admin Dose 5.62 MLS/HR; Start 10/18/16 at 10:00 Phenylephrine HCl/ Dextrose (Nicholas-Syneph/D5W) 500 ml @ 75 mls/hr TITRATE IV ; Start 10/18/16 at 10:00 Divalproex Sodium (Depakote) 500 mg TID PO Last administered on 10/21/16 09:06 ; Admin Dose 500 MG; Start 10/19/16 at 13:00 Insulin Glargine (Lantus) 20 unit DAILY@20 SC Last administered on 10/20/16 20: 22; Admin Dose 20 UNIT; Start 10/19/16 at 20:00 MARIE LYNCH October 21, 2016 09:40
[2016-10-21] MEDS ORDERED: morphine 4 MG/ML VIAL IV STA (10:01)
--- NOTE | 2016-10-21 11:49 | CONS ---
Date/Time of Note Date/Time of Note DATE: 10/21/16 TIME: 11:44 Assessment/Plan Assessment/Plan Chief Complaint/Hosp Course IMPRESSION: 1. Positive troponins/non-ST elevation myocardial infarction, likely secondary to the patient's cardiopulmonary arrest, as the patient has had recent left heart catheterization July 2016 revealing no significant obstructive disease.-now troponin trended negative 2. Congestive heart failure, diastolic, acute on chronic, as the patient has undergone a 2D echo during this admission, interpreted by another child life assistant as having a preserved EF of 65% with mild aortic stenosis and bio prosthetic mitral valve and moderate tricuspid regurgitation. 3. Abnormal electrocardiogram with diffuse nonspecific ST and T-wave abnormalities, 4. Respiratory failure, status post intubation. 5. Encephalopathy. 6. History of mitral valve replacement with bioprosthesis and per echo aortic valve bioprosthesis 7. Atrial fibrillation on heparin-rate controlled 8. Hypotension, borderline. 9. Diabetes mellitus. 10. Anemia. 11. Renal failure-improved. 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 Problems: Consultation Date/Type/Reason Admit Date/Time Oct 10, 2016 at 03:49 Initial Consult Date 10/10/16 Type of Consultation: Cardiology Reason for Consultation Nstemi/cardiac arrest Referring Provider: ALEXANDR MOULTON MD Exam/Review of Systems Vital Signs Vitals Vital Signs Date Time Temp Pulse Resp B/P Pulse Ox O2 Delivery O2 Flow Rate FiO2 10/21/16 09:45 94 15 127/79 99 10/21/16 09:00 Mechanical Ventilator 10/21/16 08:15 30 10/21/16 08:00 98.2 Intake and Output 10/20/16 10/20/16 10/21/16 15:00 23:00 07:00 Intake Total 1337.25 ml 1033.86 ml 1400 ml Output Total 2680 ml 2140 ml 1720 ml Balance -1342.75 ml -1106.14 ml -320 ml Exam Review of Systems: CONSTITUTIONAL: No fevers, chills. PULMONARY: No sob CARDIOVASCULAR: No chest pain/palpitations GASTROINTESTINAL: No nausea/vomiting. GENITOURINARY: No hematuria/dysuria. MUSCULOSKELETAL: No myagias/arthalgias. PSYCHIATRIC: The patient denies depression. NEUROLOGIC: No weakness Constitutional: alert Psych: no complaints Head: normocephalic ENMT: mucosa pink and moist Neck: supple Respiratory: clear to auscultation Cardiovascular: regular rate and rhythm Gastrointestinal: non-tender, soft Musculoskeletal: muscle tone (normal) Extremities: edema (none) 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: other (encephalopathic) Results Result Diagram: 10/21/16 0515 10/21/16 0515 Results 24 hrs Laboratory Tests Test 10/20/16 12:45 10/20/16 14:18 10/20/16 17:42 10/20/16 20:19 Bedside Glucose 171 250 H 196 Activated Partial Thromboplast Time 57.5 H Test 10/20/16 21:46 10/21/16 00:13 10/21/16 05:15 10/21/16 05:36 Prothrombin Time 14.8 #H Prothrombin Time Ratio 1.2 INR International Normalized Ratio 1.16 Activated Partial Thromboplast Time 74.6 *H 70.6 *H Bedside Glucose 211 247 H White Blood Count 10.9 H Red Blood Count 2.92 L Hemoglobin 9.2 L Hematocrit 28.0 L Mean Corpuscular Volume 95.9 Mean Corpuscular Hemoglobin 31.5 Mean Corpuscular Hemoglobin Concent 32.9 Red Cell Distribution Width 17.0 H Platelet Count 284 Mean Platelet Volume 10.3 Neutrophils % 82.3 H Lymphocytes % 6.1 L Monocytes % 6.2 Eosinophils % 2.3 Basophils % 0.4 Nucleated Red Blood Cells % 0.0 Neutrophils # 9.0 H Lymphocytes # 0.7 L Monocytes # 0.7 Eosinophils # 0.3 Basophils # 0.0 Nucleated Red Blood Cells # 0.0 Sodium Level 135 Potassium Level 4.7 Chloride Level 99 Carbon Dioxide Level 27 Anion Gap 14 Blood Urea Nitrogen 24 H Creatinine 1.10 Glucose Level 237 H Calcium Level 9.4 Total Bilirubin 0.2 Direct Bilirubin 0.00 Indirect Bilirubin 0.2 Aspartate Amino Transf (AST/SGOT) 42 Alanine Aminotransferase (ALT/SGPT) 32 Alkaline Phosphatase 73 Total Protein 6.3 Albumin 2.9 L Globulin 3.40 H Albumin/Globulin Ratio 0.85 Test 10/21/16 09:08 Bedside Glucose 217 Medications Medications Current Medications Lorazepam (Ativan) 0.5 mg Q10MIN PRN IV AGITATION/ANXIETY; Start 10/21/16 at 10: 30 Morphine Sulfate (morphine) 1 mg Q10MIN PRN IV PAIN; Start 10/21/16 at 10:30 ESTEFANI BORREGO October 21, 2016 11:48
[2016-10-21] MEDS: morphine 2 MG INJ IV PRN ×3 (12:30→15:40)
--- NOTE | 2016-10-21 12:48 | PN ---
DATE: SUBJECTIVE: The patient when I her first examined her was being mechanically ventilated, comfortabl e. PHYSICAL EXAMINATION: VITAL SIGNS: 127/79 blood pressure, heart rate 94 per minute, pulse ox was 99. CHEST: Few wheezes anteriorly. EXTREMITIES: No edema. I had a long discussion with the patient's family who decided to have termi nal extubation, which was performed now after giving a dose of morphine. IMPRESSION: 1. Status post cardiopulmonary arrest with severe anoxic encephalopathy. 2. Acute respiratory failure with aspiration pneumonia. 3. Severe chronic obstructive pulmonary disease. 4. Atrial fibrillation. 5. Mild congestive heart failure. 6. Diabetes mellitus type 2. 7. Status post mitral and aortic valve replacement. PLAN: We will continue comfort measures with morphine and Ativan as needed. All the family members are at the patient's bedside. Dictated By: ALEXANDR MOULTON MD, SR/SUDHAKAR Conf#: [id number] DID#: [id number]
[2016-10-21] MEDS: LORAZEPAM 2 MG INJ IV PRN ×3 (13:26→18:45)
[2016-10-21] MEDS ORDERED: morphine (DRIP) 100 MG/100 ML 100 ML IV SCH (16:00)
[2016-10-22] VITALS: BP 77/51; PULSE 139; PULSE 145; RESP 15
[2016-10-22] MEDS: LORAZEPAM 2 MG INJ IV PRN (00:15)
[2016-10-22 01:00] VITALS: BP 71/43; PULSE 135; RESP 16
[2016-10-22 02:00] VITALS: BP 67/56; PULSE 125; RESP 14
== END 2016-10-22 02:19 | disposition expired | DRG 207 ==
LOC: E/R 01:38 → ICU 10-10 03:49
PROVIDERS: ADMIT Internal Medicine; ATTEND Internal Medicine
PROC: 5A1955Z Respiratory Ventilation, Greater than 96 Consecutive Hours (ICD-10-PCS; principal; 2016-10-10)
PROC: 0BH17EZ Insertion of Endotracheal Airway into Trachea, Via Natural or Artificial Opening (ICD-10-PCS; 2016-10-10)
PROC: 02HV33Z Insertion of Infusion Device into Superior Vena Cava, Percutaneous Approach (ICD-10-PCS; 2016-10-10)
DX: J96.01 Acute respiratory failure with hypoxia (principal); I21.4 Non-ST elevation (NSTEMI) myocardial infarction; I46.9 Cardiac arrest, cause unspecified; J69.0 Pneumonitis due to inhalation of food and vomit; I50.33 Acute on chronic diastolic (congestive) heart failure; G93.1 Anoxic brain damage, not elsewhere classified; N17.9 Acute kidney failure, unspecified; E87.0 Hyperosmolality and hypernatremia; E11.9 Type 2 diabetes mellitus without complications; D64.9 Anemia, unspecified; I11.0 Hypertensive heart disease with heart failure; I48.91 Unspecified atrial fibrillation; I25.10 Atherosclerotic heart disease of native coronary artery without angina pectoris; J44.9 Chronic obstructive pulmonary disease, unspecified; E87.6 Hypokalemia; R56.9 Unspecified convulsions; R19.7 Diarrhea, unspecified; G25.3 Myoclonus; I95.9 Hypotension, unspecified; I25.2 Old myocardial infarction; Z79.4 Long term (current) use of insulin; Z79.01 Long term (current) use of anticoagulants; Z95.4 Presence of other heart-valve replacement; Z95.1 Presence of aortocoronary bypass graft
CPT/HCPCS: 31500; 36415; 36569; 36600; 70450; 70552; 71010; 74000; 76604; 76937; 80048; 80053; 80061; 81001; 81003; 82550; 82553; 82803; 82962; 83036; 83735; 84100; 84145; 84484; 85025; 85610; 85730; 87040; 87070; 87075; 87081; 87086; 89220; 93005; 93306; 94002; 94003; 94640; 94644; 94664; 94770; 96361; 96365; 96366; 96367; 96372; 96375; 96376; C1769; J0131; J1644; J1815; J1940; J1953; J2060; J2270; J2543; J3370; J3480; J7030; J7050; J7060; P9612